=== PATIENT | male | born 1965 | race American Indian/Alaskan Native ===

== ENCOUNTER 2016-12-13 12:36 | Emergency (ER) | payer OTHER ==
[2016-12-13] MEDS ORDERED: CATAPRES PO ONE ×2 (14:10→19:20)
--- NOTE | 2016-12-13 14:15 | Emergency Department Report ---
Chief Complaint: Extremity Injury, Lower Stated Complaint: INGROWN TOE NAIL Time Seen by Provider: 12/13/16 14:04 - HPI History of Present Illness: 51-year-old male presents today with a ingrown toenail of his right third toe x1 month. Patient states that he has been to 3 different hospitals for same symptoms. Rates his pain as 10 out of 10. Patient has history of high blood pressure and states he took his lisinopril 20 mg this morning. Denies chest pain, shortness of breath, abdominal pain. - ROS Review of Systems: Per HPI - Exam Vital Signs: Vital Signs 12/13/16 13:01 Temperature 98.4 F Pulse Rate 64 Respiratory 18 Rate Blood Pressure 162/121 O2 Sat by Pulse 98 Oximetry Physical Exam: General: 51-year-old male in mild to moderate distress. Well-developed, well- nourished. CV: Regular rate and rhythm. Right third toe: Ulcer-like lesion noted at the tip of the third toe. Positive for tenderness to palpation. Peripheral pulses intact. MSE screening note: Focused history and physical exam performed. Due to findings the following was ordered: ED Disposition for MSE Condition: Stable
--- NOTE | 2016-12-13 15:04 | XRay Report ---
Right third toe 3 views: History: Third toe ulcer. Findings: No bony or articular abnormality. No periosteal reaction or lytic lesion. Impression: No definite acute findings.
[2016-12-13 15:48] LABS: Basophils % (Auto) 0.2 % (0.0-1.8); Eosinophils % (Auto) 3.5 % (0.0-4.3); Hematocrit 51.2 % (35.5-45.6); Hemoglobin 17.1 gm/dl (11.8-15.2); Mean Corpuscular HGB Conc 33 % (32-34); Mean Corpuscular Hemoglobin 31 pg (28-32); Mean Corpuscular Volume 94 fl (84-94); Platelet Count 855 K/mm3 (140-440); Red Blood Count 5.47 M/mm3 (3.65-5.03); Red Cell Distribution Width 16.1 % (13.2-15.2); White Blood Count 9.2 K/mm3 (4.5-11.0)
[2016-12-13 16:44] LABS: BUN/Creatinine Ratio 14.16; Blood Urea Nitrogen 17 mg/dL (9-20); Calcium 9.4 mg/dL (8.4-10.2); Carbon Dioxide 27 mmol/L (22-30); Chloride 99.9 mmol/L (98-107); Glucose 76 mg/dL (75-100); Sodium 140 mmol/L (137-145)
[2016-12-13 16:50] LABS: Anion Gap 17 mmol/L
[2016-12-13] MEDS ORDERED: CATAPRES ONE (19:19)
[2016-12-14 03:06] VITALS: BP 192/117
[2016-12-14] MEDS ORDERED: APRESOLINE IM ONE (03:07)
--- NOTE | 2016-12-14 03:14 | Emergency Department Report ---
HPI - General Chief Complaint: Extremity Injury, Lower Time Seen by Provider: 12/13/16 14:04 - HPI HPI: This is a 51-year-old Afro-[place] male who presents to the emergency department with the complaint of right middle toe pain and infection that he believes stemmed from a ingrown toenail. Patient says that this is the third hospital and emergency department that he has visited for this problem. He has been on pain medication and antibiotics in the past. They also told him to use Neosporin, soak it in Epsom salt. 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 He says that he has been doing what the other physicians told him and the symptoms do not appear to improve and sometimes seems worse. He denies any fever, nausea, vomiting. He is able to ambulate without difficulty. Patient also presents with uncontrolled blood pressure. He has a history of hypertension and is on lisinopril 20 mg daily. However the patient says that he used to be on 40 mg per day and says that he cut the dosage down on his own. He does not have a primary care doctor. He is a tobacco smoker but denies any illicit drug use. He does admit to multiple cups of caffeinated coffee per day. He denies any chest pain, headache, vision change or any neurological deficits. ED Past Medical Hx - Past Medical History Hx Hypertension: Yes Hx of Cancer: Yes (kidney) - Surgical History Additional Surgical History: L kidney removed - Social History Smoking Status: Current Every Day Smoker Substance Use Type: Alcohol - Medications Home Medications: Home Medications Medication Instructions Recorded Confirmed Last Taken Type Lisinopril [Zestril] 20 mg PO QDAY 07/17/14 07/17/14 07/17/14 08:00 History HYDROcodone/APAP 5-325 [[place] 1 each PO Q6HR PRN #12 tablet 12/14/16 Unknown Rx 5/325] Sulfamethoxazole/Trimethoprim 1 each PO BID #14 tablet 12/14/16 Unknown Rx [Bactrim DS TAB] ED Review of Systems ROS: Stated complaint: INGROWN TOE NAIL Other details as noted in HPI Comment: All other systems reviewed and negative Constitutional: denies: chills, fever Eyes: denies: eye pain, eye discharge, vision change ENT: denies: ear pain, throat pain Respiratory: denies: cough, shortness of breath, wheezing Cardiovascular: denies: chest pain, palpitations Gastrointestinal: denies: abdominal pain, nausea, diarrhea Genitourinary: denies: urgency, dysuria Musculoskeletal: arthralgia (right middle toe) Skin: other (skin ulceration, infection). denies: pruritus Neurological: denies: headache, weakness, paresthesias Physical Exam - Physical Exam Vital Signs: Vital Signs 12/13/16 12/13/16 12/13/16 13:01 19:25 22:03 Temperature 98.4 F Pulse Rate 64 84 89 Respiratory 18 16 Rate Blood Pressure 162/121 176/124 Blood Pressure 166/89 [Left] O2 Sat by Pulse 98 95 Oximetry 12/13/16 12/14/16 23:15 03:05 Temperature 98.5 F Pulse Rate 74 68 Respiratory 20 20 Rate Blood Pressure 141/97 Blood Pressure 192/117 [Left] O2 Sat by Pulse 96 97 Oximetry Physical Exam: GENERAL: The patient is well-developed well-nourished. HEENT: Normocephalic. Atraumatic. Extraocular motions are intact. Patient has moist mucous membranes. NECK: Supple. Trachea is midline. CHEST/LUNGS: Clear to auscultation. There is no respiratory distress noted. HEART/CARDIOVASCULAR: Regular. There is no tachycardia. There is no gallop rub or murmur. ABDOMEN: Abdomen is soft, nontender. Patient has normal bowel sounds. There is no abdominal distention. SKIN: Patient has some onychomycosis of the toenails. There is some ulceration to the right middle toe to the medial portion as well as to the inferior tip. It appears as if the skin is macerated and sloughing as if it has been consistently wet. No current bleeding or purulent drainage. NEURO: The patient is awake, alert, and oriented. The patient is cooperative. The patient has no focal neurologic deficits. The patient has normal speech. MUSCULOSKELETAL: Mild tenderness to palpation to the right middle toe with patient has some ulceration and onychomycosis. There is no limitation range of motion. There is no evidence of acute injury. Cap refill less than 2 seconds. Dorsalis pedis pulses +2 over 4 bilaterally. ED Course Vital Signs 12/13/16 12/13/16 12/13/16 13:01 19:25 22:03 Temperature 98.4 F Pulse Rate 64 84 89 Respiratory 18 16 Rate Blood Pressure 162/121 176/124 Blood Pressure 166/89 [Left] O2 Sat by Pulse 98 95 Oximetry 12/13/16 12/14/16 23:15 03:05 Temperature 98.5 F Pulse Rate 74 68 Respiratory 20 20 Rate Blood Pressure 141/97 Blood Pressure 192/117 [Left] O2 Sat by Pulse 96 97 Oximetry ED Medical Decision Making - Lab Data Result diagrams: 12/13/16 15:20 12/13/16 15:20 - Radiology Data Radiology results: image reviewed interpreted by me: X-ray of the affected right middle toe does not show any signs of osteomyelitis , fracture, dislocation or any acute process. - Medical Decision Making This is a 51-year-old male presents to the emergency department with a possible right middle toe infections been going on for weeks. Looking at the toe it appears macerated and sloughing. He does not appear to currently be due to any type of ingrown toenail but may have started out that way. Based on the patient 's information about what he has been doing for treatment and the appearance, it seems as if the patient has been using Neosporin and soaking it to the point where the skin has become macerated and then due to friction it is causing these ulcerations. Patient's labs have been unremarkable including no signs of leukocytosis. Despite his high blood pressure, he does not have any renal insufficiency. An x-ray was done of the toe that does not show any signs of fracture, dislocation or signs of osteomyelitis. The patient made a change on his own from lisinopril 40 mg to 20 mg and it does not appear to be controlling his blood pressure. On top of that he drinks multiple caffeinated coffees and is a tobacco smoker. We discussed dietary and lifestyle changes including tobacco cessation to help his blood pressure. It is recommended that he goes back to the normal dose of 40 mg. And most importantly the patient will need a primary care physician. The tobacco cessation will also help with the wound healing. Otherwise we discussed cleaning the area with soap and water but then making sure that it is dry. He will avoid using any Neosporin or soaking it so that the skin can dry out and start to regrow. He also will be given a referral for a local wound care clinic and podiatry. Also information was given to his as well. Patient was given a dose of Catapres much earlier in the evening and he had some good improvement of his hypertension. He came back to a elevated level and required a dose of hydralazine. It is now again come down to a much more reasonable level and the patient appears safe for discharge home. He will make these changes, follow up with the physicians and will return to the ER with any worsening symptoms or any acute distress. - Differential Diagnosis ingrown toenail, osteomyelitis, ulcer, cellulitis, hypertensive urgency Critical Care Time: No Critical care attestation.: If time is entered above; I have spent that time in minutes in the direct care of this critically ill patient, excluding procedure time. ED Disposition Clinical Impression: Hypertension Qualifiers: Hypertension type: essential hypertension Qualified Code(s): I10 - Essential ( primary) hypertension Toe ulcer Qualifiers: Laterality: right Non-pressure ulcer stage: limited to breakdown of skin Qualified Code(s): L97.511 - Non-pressure chronic ulcer of other part of right foot limited to breakdown of skin Disposition: DISCHARGED TO HOME OR SELFCARE Is pt being admited?: No Condition: Stable Instructions: Hypertension (ED), Acute Wound Care (ED), Chronic Wound Care (ED) , Diabetic Foot Ulcers (ED) Additional Instructions: I given you information about wound care and foot ulcers. Despite the fact that one of the information packet says it is regarding diabetic foot ulcers, he do not have diabetes. Have given you referrals for primary care clinics, a wound care clinic, and a fashion buyer. Follow-up with one or all of these physicians. You should clean the infected toe with soap and water but then it should remain dry. Do not use any Neosporin or creams and do not soak it for a long period of time. If you sweat, the sock should be changed in the foot cleaned. When you're at home the area can be left to air dry. Take the antibiotics as prescribed. Return to the emergency department with any worsening of your symptoms or any acute distress. Try and quit smoking. Try to stay away from foods that are high in salt and caffeinated products to assist with her blood pressure. Keep a blood pressure log. If necessary, go back to your original dose of lisinopril 40 mg per day. Prescriptions: Sulfamethoxazole/Trimethoprim [Bactrim DS TAB] 1 each PO BID #14 tablet HYDROcodone/APAP 5-325 [[place] 5/325] 1 each PO Q6HR PRN #12 tablet PRN Reason: Pain Referrals: PRIMARY CAREMD [Primary Care Provider] - 3-5 Days [facility] [Outside] - 3-5 Days [facility] [Outside] - 3-5 Days [facility] [Outside] - 3-5 Days RONALD CAST MD [Staff Physician] - 3-5 Days Time of Disposition: 03:40
== END 2016-12-14 03:40 | disposition home or self-care (01) ==
LOC: ED 12:36
DX: I10 Essential (primary) hypertension (principal); L97.511 Non-pressure chronic ulcer of other part of right foot limited to breakdown of skin; F17.200 Nicotine dependence, unspecified, uncomplicated; Z85.528 Personal history of other malignant neoplasm of kidney
CPT/HCPCS: 36415; 73660; 80048; 85025; 96372; 99283; J0360

== ENCOUNTER 2017-10-10 09:25 | Outpatient (CLI) | payer OTHER ==
--- NOTE | 2017-10-10 10:49 | XRay Report ---
Right knee 2 views. Findings: There is mild narrowing of the joint space medially. Bony mineralization is normal. Minimal chondrocalcinosis is seen in the posterior joint space on the lateral view. No additional soft tissue findings are seen. Impression: Mild osteoarthritis.
--- NOTE | 2017-10-10 13:25 | XRay Report ---
XRAY LUMBAR SPINE THREE VIEWS: 10/10/17 09:25:00 CLINICAL: Decreased lumbar range of motion. FINDINGS: Normal vertebral body height, alignment and disk spaces. Superior endplate sclerosis of L4 and large L3-4 anterior and lateral osteophytes. The pedicles are intact. Facet joint sclerosis from L2-3 through L5-S1. No fracture. Aortic calcifications and left para spinal upper lumbar and lower thoracic surgical clips. IMPRESSION: Multilevel facet joint arthropathy and L3-4 degenerative disc disease.
== END 2017-10-10 09:26 | disposition home or self-care (01) ==
LOC: XRAY 09:25
PROVIDERS: ATTEND Internal Medicine
DX: M51.36 Other intervertebral disc degeneration, lumbar region (principal); M17.11 Unilateral primary osteoarthritis, right knee; M11.261 Other chondrocalcinosis, right knee; I70.0 Atherosclerosis of aorta
CPT/HCPCS: 72100

== ENCOUNTER 2019-03-05 17:28 | Inpatient (IN) | payer OTHER ==
--- NOTE | 2019-03-05 17:35 | Emergency Department Report ---
ED Neuro Deficit HPI - General Chief Complaint: Neuro Symptoms/Deficit Stated Complaint: CVA Time Seen by Provider: 03/05/19 17:33 Source: patient Mode of arrival: Stretcher Limitations: No Limitations - History of Present Illness Initial Comments: Patient is 53 years old male with history of hypertension, COPD nontraumatic several hemorrhoids in November 2018 with cerebral edema. Patient was just released from rehabilitation. Patient brought to the emergency room as a code stroke. EMS stated that patient's symptoms started 1 hour prior to coming to the ER approximately 4:30 PM with a right facial droop right upper and lower extremity weakness. Patient is unable to give more history at this time -: hour(s) (1 hour ago) Location: speech, right face, right arm Presenting Symptoms: Present: Weak/Paralyzed One Side, Facial Droop/Numbness, Unable to Speak Clearly History of same: Yes Place: home - Related Data Home Medications: Home Medications Medication Instructions Recorded Confirmed Last Taken Lisinopril [Zestril] 20 mg PO QDAY 07/17/14 07/17/14 07/17/14 08:00 Metoprolol Tartrate 50 mg PO BID 03/05/19 03/05/19 Unknown QUEtiapine 50 mg PO DAILY 03/05/19 03/05/19 Unknown traZODone 50 mg PO PRN 03/05/19 03/05/19 Unknown Previous Rx's Medication Instructions Recorded Last Taken Type HYDROcodone/APAP 5-325 [[place] 1 each PO Q6HR PRN #12 tablet 12/14/16 Unknown Rx 5/325] Sulfamethoxazole/Trimethoprim 1 each PO BID #14 tablet 12/14/16 Unknown Rx [Bactrim DS TAB] Allergies/Adverse Reactions: Allergies Allergy/AdvReac Type Severity Reaction Status Date / Time No Known Allergies Allergy Unverified 07/17/14 19:25 ED Review of Systems ROS: Stated complaint: CVA Other details as noted in HPI Comment: All other systems reviewed and negative Constitutional: denies: chills, fever Respiratory: denies: cough, orthopnea, shortness of breath Gastrointestinal: denies: abdominal pain, nausea Neurological: weakness, numbness. denies: headache, paresthesias, confusion, abnormal gait ED Past Medical Hx - Past Medical History Hx Hypertension: Yes - Surgical History Additional Surgical History: L kidney removed - Social History Smoking Status: Current Every Day Smoker Substance Use Type: Alcohol - Medications Home Medications: Home Medications Medication Instructions Recorded Confirmed Last Taken Type Lisinopril [Zestril] 20 mg PO QDAY 07/17/14 07/17/14 07/17/14 08:00 History HYDROcodone/APAP 5-325 [[place] 1 each PO Q6HR PRN #12 tablet 12/14/16 Unknown Rx 5/325] Sulfamethoxazole/Trimethoprim 1 each PO BID #14 tablet 12/14/16 Unknown Rx [Bactrim DS TAB] Metoprolol Tartrate 50 mg PO BID 03/05/19 03/05/19 Unknown History QUEtiapine 50 mg PO DAILY 03/05/19 03/05/19 Unknown History traZODone 50 mg PO PRN 03/05/19 03/05/19 Unknown History ED Neuro Physical Exam - General Limitations: No Limitations General appearance: alert, in no apparent distress Suspected Stroke: Yes - Head Head exam: Present: atraumatic, normocephalic, normal inspection - Eye Eye exam: Present: normal appearance, PERRL Pupils: Present: normal accommodation - ENT ENT exam: Present: normal exam, normal orophraynx, mucous membranes moist - Neck Neck exam: Present: normal inspection, full ROM. Absent: tenderness, meningismus, lymphadenopathy, thyromegaly - Respiratory Respiratory exam: Present: normal lung sounds bilaterally. Absent: respiratory distress, wheezes, rales, rhonchi, chest wall tenderness, accessory muscle use, decreased breath sounds, prolonged expiratory - Cardiovascular Cardiovascular Exam: Present: regular rate, normal rhythm, normal heart sounds - GI/Abdominal GI/Abdominal exam: Present: soft, normal bowel sounds. Absent: distended, tenderness, guarding, rebound, rigid - Extremities Exam Extremities exam: Present: normal inspection, full ROM, normal capillary refill. Absent: tenderness, pedal edema, joint swelling - Back Exam Back exam: Present: normal inspection, full ROM. Absent: tenderness, CVA tenderness (R), CVA tenderness (L), muscle spasm, paraspinal tenderness, vertebral tenderness - Neurological Exam Neurological exam: Present: alert - NIHSS Assessment Interval: Baseline 1a. Level of Consciousness: alert/keenly responsive 1b. LOC Questions: answers both correctly 1c. LOC Commands: performs tasks correctly 2. Best Gaze: normal 3. Visual: no visual loss 4. Facial Palsy: unilateral complete paralysis 5b. Motor Arm Right: drift 5a. Motor Arm Left: no drift 6a. Motor Leg Left: drift 6b. Motor Leg Right: no drift 7. Limb Ataxia: absent 8. Sensory: normal 9. Best Language: mild/moderate aphasia 10. Dysarthria: mild/moderate dysarthria 11. Extinction/Inattention: no abnormality Total Score: 7 Stroke Severity: Moderate Stroke - Psychiatric Psychiatric exam: Present: normal mood - Skin Skin exam: Present: warm, intact, normal color ED Course Vital Signs 03/05/19 03/05/19 03/05/19 20:06 22:10 22:11 Pulse Rate 63 77 66 Respiratory 15 13 17 Rate Blood Pressure 123/69 142/71 129/70 [Right] O2 Sat by Pulse 97 98 96 Oximetry - Reevaluation(s) Reevaluation #1: 03/05/19 19:15 Patient's family arrived to the ER. Patient family stated that this patient symptoms looked the same since he came from rehabilitation one week ago. Family stated that the home health nurse is unfamiliar with the patient. Patient has been seen by Dr. Dena Burleson from telemetry neurology via video conference, she stated that patient is not a candidate for TPA. She stated that patient does not need a CTA neck or brain but an MRI to make sure that there is no new stroke. 03/05/19 21:29 - Lab Data Result diagrams: 03/05/19 17:46 03/05/19 17:46 Lab Results 03/05/19 03/05/19 03/05/19 Range/Units 17:46 17:46 17:46 WBC 8.6 (4.5-11.0) K/mm3 RBC 4.00 (3.65-5.03) M/mm3 Hgb 13.1 (11.8-15.2) gm/dl Hct 36.7 (35.5-45.6) % MCV 92 (84-94) fl MCH 33 H (28-32) pg MCHC 36 H (32-34) % RDW 18.3 H (13.2-15.2) % Plt Count 652 H (140-440) K/mm3 Lymph % (Auto) 24.4 (13.4-35.0) % Lipscomb % (Auto) 12.0 H (0.0-7.3) % Eos % (Auto) 6.6 H (0.0-4.3) % Baso % (Auto) 1.0 (0.0-1.8) % Lymph # 2.1 (1.2-5.4) K/mm3 Lipscomb # 1.0 H (0.0-0.8) K/mm3 Eos # 0.6 H (0.0-0.4) K/mm3 Baso # 0.1 (0.0-0.1) K/mm3 Seg Neutrophils % 56.0 (40.0-70.0) % Seg Neutrophils # 4.8 (1.8-7.7) K/mm3 PT 14.9 (12.2-14.9) Sec. INR 1.10 (0.87-1.13) APTT 31.4 (24.2-36.6) Sec. Thrombin Time 15.2 (15.1-19.6) Sec. Sodium 140 (137-145) mmol/L Potassium 4.6 (3.6-5.0) mmol/L Chloride 99.9 (98-107) mmol/L Carbon Dioxide 29 (22-30) mmol/L Anion Gap 16 mmol/L BUN 18 (9-20) mg/dL Creatinine 1.0 (0.8-1.5) mg/dL Estimated GFR > 60 ml/min BUN/Creatinine Ratio 18 % Glucose 107 H (75-100) mg/dL POC Glucose (70-105) Calcium 9.4 (8.4-10.2) mg/dL Total Creatine Kinase 211 H (55-170) units/L CK-MB (CK-2) 1.0 (0.0-4.0) ng/mL CK-MB (CK-2) Rel Index 0.4 (0-4) Troponin T < 0.010 (0.00-0.029) ng/mL 03/05/19 Range/Units 17:54 WBC (4.5-11.0) K/mm3 RBC (3.65-5.03) M/mm3 Hgb (11.8-15.2) gm/dl Hct (35.5-45.6) % MCV (84-94) fl MCH (28-32) pg MCHC (32-34) % RDW (13.2-15.2) % Plt Count (140-440) K/mm3 Lymph % (Auto) (13.4-35.0) % Lipscomb % (Auto) (0.0-7.3) % Eos % (Auto) (0.0-4.3) % Baso % (Auto) (0.0-1.8) % Lymph # (1.2-5.4) K/mm3 Lipscomb # (0.0-0.8) K/mm3 Eos # (0.0-0.4) K/mm3 Baso # (0.0-0.1) K/mm3 Seg Neutrophils % (40.0-70.0) % Seg Neutrophils # (1.8-7.7) K/mm3 PT (12.2-14.9) Sec. INR (0.87-1.13) APTT (24.2-36.6) Sec. Thrombin Time (15.1-19.6) Sec. Sodium (137-145) mmol/L Potassium (3.6-5.0) mmol/L Chloride (98-107) mmol/L Carbon Dioxide (22-30) mmol/L Anion Gap mmol/L BUN (9-20) mg/dL Creatinine (0.8-1.5) mg/dL Estimated GFR ml/min BUN/Creatinine Ratio % Glucose (75-100) mg/dL POC Glucose 90 (70-105) Calcium (8.4-10.2) mg/dL Total Creatine Kinase (55-170) units/L CK-MB (CK-2) (0.0-4.0) ng/mL CK-MB (CK-2) Rel Index (0-4) Troponin T (0.00-0.029) ng/mL - EKG Data -: EKG Interpreted by Ms EKG shows normal: sinus rhythm Rate: normal Interpretation: no acute changes - Radiology Data Radiology results: report reviewed - Medical Decision Making Patient is 53 years old male with history of hypertension, COPD nontraumatic several hemorrhoids in November 2018 with cerebral edema. Patient was just released from rehabilitation. Patient brought to the emergency room as a code stroke. EMS stated that patient's symptoms started 1 hour prior to coming to the ER approximately 4:30 PM with a right facial droop right upper and lower extremity weakness. CT scan did not show any acute finding. Patient examined to telemetry and neurology by Dr. Dena Burleson. Dr. Burleson stated patient is not a TPA candidate and recommended patient to be admitted to the hospital for MRI of the brain. I discussed the patient is Dr. Morse, he agreed to admit the patient to medical service. Critical Care Time: Yes Critical care time in (mins) excluding proc time.: 30 Critical care attestation.: If time is entered above; I have spent that time in minutes in the direct care of this critically ill patient, excluding procedure time. ED Disposition Clinical Impression: Stroke Disposition: [id number] OP ADMIT IP TO THIS HOSP Is pt being admited?: Yes Condition: Stable Referrals: [facility] [Other] - 3-5 Days
--- NOTE | 2019-03-05 17:54 | Cat Scan Report ---
PROCEDURE: CT HEAD/BRAIN WO CON TECHNIQUE: Axial noncontrast CT images of the brain were performed Total exam DLP 920.48 mgy-centimeter HISTORY: Stroke symptoms COMPARISONS: None FINDINGS: Cortical atrophy. Ill-defined periventricular white matter hypodensity most compatible with small vessel ischemic disea se. Completed 6 mm right pontine lacunar infarct. Heterogeneous 4 mm central pontine low density lesion. Right caudate head completed lacunar infarct. Right thalamic subcentimeter punctate infarcts. Ill-defined left thalamus margins. No definite blood products. Ill-defined low-density in the centrum semiovale. No acute blood products. IMPRESSION: Multiple completed lacunar infarcts. The medial margin of the left thalamus is poorly delineated which may be due to old infarcts but supe rimposed acute infarct cannot be excluded. The lateral margin of the left thalamus shows poor crane-wh ite differentiation. No blood products. Recommend MRI brain with diffusion weighted imaging. Critical 1 report. Findings are being called as a stroke alert on 03/05/2019 at 1747 hours [place] sta ndard time and are personally relayed to Dr. Thompson. Per the referring physician, the patient had a stroke in November and just completed rehabilitation. P revious imaging and symptomatology are unknown. This document is electronically signed by Chandrika Concepcion MD., March 05 2019 05:52:24 PM ET
[2019-03-05 18:23] LABS: INR 1.1 (0.87-1.13)
[2019-03-05 18:24] LABS: Partial Thromboplastin Time 31.4 Sec. (24.2-36.6); Thrombin Time 15.2 Sec. (15.1-19.6)
[2019-03-05 18:25] LABS: BUN/Creatinine Ratio 18; Blood Urea Nitrogen 18 mg/dL (9-20); Calcium 9.4 mg/dL (8.4-10.2); Hemolysis Index 11
[2019-03-05 18:39] LABS: Basophils # (Auto) 0.1 K/mm3 (0.0-0.1); Eosinophils # (Auto) 0.6 K/mm3 (0.0-0.4); Eosinophils % (Auto) 6.6 % (0.0-4.3); Hematocrit 36.7 % (35.5-45.6); Hemoglobin 13.1 gm/dl (11.8-15.2); Lymphocytes # (Auto) 2.1 K/mm3 (1.2-5.4); Lymphocytes % (Auto) 24.4 % (13.4-35.0); Mean Corpuscular HGB Conc 36 % (32-34); Mean Corpuscular Volume 92 fl (84-94); Platelet Count 652 K/mm3 (140-440); Red Cell Distribution Width 18.3 % (13.2-15.2)
--- NOTE | 2019-03-05 20:07 | Consultation ---
History of Present Illness Consult date: 03/05/19 Reason for Consult: stroke alert Chief complaint: right facial droop History of present illness: 53 yo male with h/o hemorrhagic stroke November 2018 who just got out of rehab about a week to few days ago- in discussing with over phone, neighbor at bedside, and EMS- the home health nurse noted that she saw worsening of the right facial droop and called EMS for concern he was having a new stroke; family sent pics to since she was at work and she states that she saw no difference compared to his new normal; they state that he did have a large serving of [employer] chicken and he hadn't had that since being out of rehab; no seizure activity noted; no new meds. Medications and Allergies Allergies Allergy/AdvReac Type Severity Reaction Status Date / Time No Known Allergies Allergy Unverified 07/17/14 19:25 Home Medications Medication Instructions Recorded Confirmed Last Taken Type Lisinopril [Zestril] 20 mg PO QDAY 07/17/14 07/17/14 07/17/14 08:00 History HYDROcodone/APAP 5-325 [[place] 1 each PO Q6HR PRN #12 tablet 12/14/16 Unknown Rx 5/325] Sulfamethoxazole/Trimethoprim 1 each PO BID #14 tablet 12/14/16 Unknown Rx [Bactrim DS TAB] - Level of Consciousness 1a. Level of Consciousness: alert/keenly responsive - LOC Questions 1b. LOC Questions: answers 1 question correctly - LOC Command 1c. LOC Commands: performs tasks correctly - Best Gaze 2. Best Gaze: normal - Visual 3. Visual: no visual loss - Facial Palsy 4. Facial Palsy: partial paralysis - Motor Arm 5a. Motor Arm Left: no drift 5b. Motor Arm Right: drift - Motor Leg 6a. Motor Leg Left: no drift 6b. Motor Leg Right: no drift - Limb Ataxia 7. Limb Ataxia: absent - Sensory 8. Sensory: normal - Best Language 9. Best Language: mild/moderate aphasia - Dysarthria 10. Dysarthria: mild/moderate dysarthria - Extinction and Inattention 11. Extinction/Inattention: no abnormality - Scoring Total Score: 6 Stroke Severity: Moderate Stroke Results - Laboratory Findings CBC and BMP: 03/05/19 17:46 03/05/19 17:46 Abnormal Lab Findings: Abnormal Labs 03/05/19 03/05/19 17:46 17:46 MCH 33 H MCHC 36 H RDW 18.3 H Plt Count 652 H [place] % (Auto) 12.0 H Eos % (Auto) 6.6 H [place] # 1.0 H Eos # 0.6 H Glucose 107 H Total Creatine Kinase 211 H - Diagnostic Findings Additional findings: CT head negative for bleed, noted right frontal hypodensity Assessment and Plan [facility] Consult Services date of service: 03/05/19 metrics: LKN 1600 door: 1730 TS called 1734 TS connected 1738 NIH 1740 Impression: 1. r/o extension of old stroke vs recrudescence of stroke sx related to fatigue, heavy meal, etc 2. November 2018 right frontal hemorrhagic stroke Recommendations: - no tPA given h/o ICH - not an LVO - consider MRI brain to r/o new stroke - consider r/o infection - d/w ED doc in detail Dena Burleson MD Medical Decision Making: - Extensive number of diagnosis or management options are considered above. - Extensive amount of complex data reviewed. - High risk of complication and/or morbidity or mortality are associated with differential diagnostic considerations above. - There may be uncertain outcome and increased probability of prolonged functional impairment or high probability of severe prolonged functional impairment associated with some of these differential diagnosis. Medical Data Reviewed: 1.Data reviewed include clinical labs, radiology, Medical Tests; 2.Tests results discussed w/performing or interpreting physician; 3.Obtaining/reviewing old medical records; 4.Obtaining case history from another source; 5.Independent review of image, tracing or specimen. Patient was informed the Neurology Consult would happen via telehealth (remote video) and consented to receiving care in this manner.
[2019-03-05] MEDS ORDERED: TYLENOL PO PRN (22:20)
[2019-03-05] MEDS ORDERED: ZOFRAN IV PRN (22:20)
[2019-03-05] MEDS: NACL 0.9% 1000 ML 1,000 ML IV SCH (23:54)
--- NOTE | 2019-03-06 08:45 | History and Physical Report ---
CHIEF COMPLAINT: Weakness on the right side of the body and drooling of the mouth on the right side of the mouth. HISTORY OF PRESENT ILLNESS: The patient is a 53-year-old male who was recently discharged from rehab and was brought in as a code stroke to the Emergency Room. The patient was noted to have developed drooling on the right of the face and then also has weakness of the right upper and right lower limb and also have speech impairment and was brought for evaluation. In the Emergency Room, the patient was evaluated, but was not given any TPA because of the contraindications. PAST MEDICAL HISTORY: Pertinent for hypertension. PAST SURGICAL HISTORY: Pertinent for left kidney excision. FAMILY HISTORY: Noncontributory. SOCIAL HISTORY: The patient smokes cigarettes, drinks alcohol, and does not use illicit drug. MEDICATIONS: The patient is on lisinopril 20 mg by mouth daily, [place] 5/325 mg 1 by mouth every 6 hours as needed for pain, and Bactrim double strength 1 by mouth twice daily. The patient is also on metoprolol tartrate 50 mg by mouth twice daily, and quetiapine 50 mg by mouth daily as well as ____ 50 mg by mouth at bedtime as needed for insomnia. ALLERGIES: There are no known drug allergies. REVIEW OF SYSTEMS: CONSTITUTIONAL: There is no fever, no chills, no diaphoresis. HEENT: There is no headache or sore throat. CARDIOVASCULAR SYSTEM: There is no chest pain or orthopnea. RESPIRATORY SYSTEM: There is no shortness of breath or cough. GASTROINTESTINAL SYSTEM: There is no nausea, no vomiting, no abdominal pain, diarrhea or constipation. NEUROLOGICAL SYSTEM: Drooling on the right side of the face noted. Weakness of the right side of the body noted and speech impairment noted. MUSCULOSKELETAL SYSTEM: There is no joint pain or swelling. DERMATOLOGICAL SYSTEM: There is no skin rash or itching. GENITOURINARY SYSTEM: There is no dysuria, hematuria, or flank pain. Rest of system review is normal. PHYSICAL EXAMINATION: GENERAL: At the time of exam, the patient was found to be alert, oriented, to person and in [id number] distress due to weakness of the right side of the body. VITAL SIGNS: At the initial time of presentation showed temperature to be normal, pulse of 63, respirations 16, blood pressure 123/69, O2 sat of 97% on room air. HEENT: Showed pupils to be equal, round, reactive to light and accommodating. Extraocular muscles are intact. NECK: Neck is supple with no JVD or carotid bruit. CARDIOVASCULAR SYSTEM: Showed normal first and second heart sounds with no gallops or murmurs. RESPIRATORY SYSTEM: Show good air entry on both sides of the lungs with no abnormal breath sounds. GASTROINTESTINAL: Show abdomen to be full, soft, nontender with no organomegaly or rigidity. NEUROLOGIC: Shows patient to have weakness on the right side of the body and also weakness involving both lower extremities with no loss of sensory function. There is drooling of the mouth on the face on the right side with also speech impairment. MUSCULOSKELETAL SYSTEM: Show no joint swelling or tenderness. DERMATOLOGICAL SYSTEM: Show no skin rash. GENITOURINARY SYSTEM: Showing no costovertebral angle tenderness. PERTINENT LABORATORY DATA AND IMAGING STUDIES: The patient has CT of the head without contrast done that shows multiple complete lacunar infarcts. The media imaging according to the radiologist showed ____ which may be due to old infarct but superimposed acute infarct cannot be excluded, and according to the radiologist, the lateral margin of the left thalamus showed poor galdamez white differentiation. MRI is recommended for better evaluation of the presentation. LAB RESULTS: The patient has CBC done with normal white count, normal hemoglobin and normal hematocrit with CBC differential showing elevated monocyte count of 12% and elevated eosinophil count of 6.6%. Coagulation studies were unremarkable. The patient's chemistry showed slightly elevated total CPK of 211, otherwise rest of chemistry was unremarkable. DIAGNOSIS: Cerebrovascular accident with right sided weakness. PLAN: 1. The patient will be admitted to telemetry. 2. The patient will have MRI of the brain without contrast done this morning and will have bilateral carotid Doppler also done. 3. The patient will have a 2D echo done this morning. 4. The patient will have Neurology consult with Dr. Fiona Anders and will have speech therapy consult as well as physical therapy consult this morning. 5. The patient will remain n.p.o. until swallow test is passed. 6. The patient will be on Tylenol 650 mg by mouth every 4 hours when he starts taking medications orally and will be on aspirin 325 mg by mouth daily. 7. The patient will be on Lipitor 80 mg by mouth daily and will be on his home medication as shown in the medication reconciliation section. 8. The patient will be on IV Zofran 4 mg every 8 hours for nausea and vomiting and will be on normal saline at 75 mL an hour. 9. The patient will be on oxygen by nasal cannula 2 liters per minute. JOB# [id number] OCN/NTS
[2019-03-06] MEDS: ZESTRIL PO SCH (09:19)
[2019-03-06] MEDS: ASPIRIN PO SCH (09:20)
[2019-03-06] MEDS: LOPRESSOR PO SCH ×2 (09:20→22:26)
[2019-03-06] MEDS ORDERED: DESYREL PO PRN (10:00)
--- NOTE | 2019-03-06 11:22 | Magnetic Resonance Report ---
MRI OF THE BRAIN WITHOUT CONTRAST: HISTORY: CVA PROCEDURE: Multiplanar, multisequence MR imaging of the brain without IV contrast was performed. FINDINGS: Compared to the CT head dated 03/05/19. MRI demonstrates a 5 mm focus of diffusion restriction in the posterior left frontal white matter on diffusion image 24. This consistent with a small subacute ischemic infarct. No other areas of diffusion restriction are identified. 1.9 cm chronic infarct in the medial left thalamus is identified. There are 2 chronic lacunar infarcts in both sides of the zeynep measuring up to 7 mm. Mild cortical volume loss and moderate nonspecific chronic white matter changes are noted. No evidence for hemorrhage, mass or extra-axial fluid collection. The midline structures are central. The basal cisterns are patent. Normal ventricular size. The orbital cavities and sella turcica demonstrate no abnormality. The visualized paranasal sinuses and mastoid air cells are well aerated. IMPRESSION: 5 mm focal infarct in the posterior left frontal white matter. Chronic focal infarcts in the left thalamus and bilateral zeynep. Chronic white matter changes and volume loss.
--- NOTE | 2019-03-06 12:04 | Event Note ---
Date: 03/06/19 Patient with recent stroke, has acute ischemic stroke. I have seen and examined him. Discussed with sister at bedside, on phone.
[2019-03-06 14:29] LABS: Chol/HDL Ratio 3.51 %
--- NOTE | 2019-03-06 15:31 | Vascular Lab Report ---
PROCEDURE: VL CAROTID DUPLEX BILAT TECHNIQUE: Duplex Doppler ultrasound examination of the cervical arteries bilaterally. Note: Measurement of carotid stenosis is based on flow velocity values that correlate with the [place] Symptomatic Carotid Endarterectomy Trial (NASCET) based stenosis criteria using the internal carotid artery diameter as the denominator for stenosis calculation. HISTORY: CVA COMPARISONS: None FINDINGS: Intimal thickening is noted bilaterally throughout the carotid artery system but no significant plaqu e or calcification is demonstrated. Peak systolic CCA and ICA velocities are within normal limits bilaterally corresponding to estimated diameter stenosis of 0 to 49 %. Flow is antegrade in both vertebral arteries. No evidence of aneurysm or occlusion. IMPRESSION: Bilateral carotid artery minimal atherosclerotic change. No hemodynamically significant stenosis (<50% diameter) based on ratios, velocities, and color Dopple r images. This document is electronically signed by Butch Brown MD., March 06 2019 03:29:19 PM ET
--- NOTE | 2019-03-06 17:41 | Event Note ---
Date: 03/06/19 d/w family JAK2+ saw dr salgado was at [facility] was on hydrea same trial [id number]
--- NOTE | 2019-03-07 00:24 | Consultation ---
REFERRED BY: Pastor Ga MD REASON FOR CONSULTATION: JAK2 positive ET, chronic myeloproliferative disorder. HISTORY OF PRESENT ILLNESS: I saw the patient a 53-year-old male in the medical floor. The patient has history of hypertension, COPD. He had a CVA in 11/2018. He was at [facility] where he was seen by Dr. Frankel, ladle repairer. He was started on hydroxyurea and was told JAK2 is positive. He was discharged to rehab and then from rehab, came to home. He came to the hospital because of increased right-sided droop and right arm and leg weakness. The patient follows commands, but does not answer questions. Family members were present. I spoke to the patient's over the telephone. The patient has appointment to see Dr. Frankel tomorrow and they were Hydrea before, but not in the recent past. I have been asked to evaluate the patient for this. At this time, no headache, no visual disturbances. No ear discharge. Right-sided facial and arm weakness even right leg weakness. No chest pain, no shortness of breath, no abdominal pain, no vomiting, no diarrhea, no dysuria. PAST MEDICAL HISTORY: As above, hypertension, COPD, CVA. HOME MEDICATIONS: Lisinopril, metoprolol, trazodone, Bactrim. ALLERGIES: None. PAST SURGICAL HISTORY: Left kidney surgery, details not clear. SOCIAL HISTORY: History of smoking present. History of alcohol present. PHYSICAL EXAMINATION: VITAL SIGNS: Temperature 98, pulse 60, respirations 18, BP 121/62. HEENT: No pallor, no icterus. NECK: No neck lymph nodes. HEART: S1, S2. LUNGS: Clear to auscultation anteriorly. ABDOMEN: Soft. EXTREMITIES: No calf swelling. Right facial and right upper extremity weak, able to move lower extremity, right side weaker. LABORATORY DATA: White cell 8, hemoglobin 13, MCV 92, platelets 652, creatinine 1, calcium 9.4. Brain MRI was done, head CT was done, 5 mm focal infarct in the posterior left frontal white matter. ASSESSMENT AND PLAN: 1. Based on the information, JAK2 positive, chronic myeloproliferative disorders, ET and based on the lab in the past, the patient's platelet count in 2017 was 855, may be secondary to the chronic myeloproliferative disorders. 2. The patient was on Hydrea. We will reinitiate the same. 3. the patient's family will get more information. 4. History of cerebrovascular accident. 5. History of chronic obstructive pulmonary disease, history of hypertension, history of smoking. I will follow the patient during inpatient stay. We will look into hydroxyurea. The patient will be seen in the hospital and then he will follow up with Dr. Franekl in the clinic setting. JOB# [id number] NM/NTS
[2019-03-07 05:52] LABS: Hematocrit 34.4 % (35.5-45.6); Hemoglobin 11.6 gm/dl (11.8-15.2); Mean Corpuscular HGB Conc 34 % (32-34); Mean Corpuscular Volume 92 fl (84-94); Platelet Count 633 K/mm3 (140-440); Red Blood Count 3.75 M/mm3 (3.65-5.03); Red Cell Distribution Width 18.3 % (13.2-15.2)
[2019-03-07 06:17] LABS: BUN/Creatinine Ratio 16; Blood Urea Nitrogen 13 mg/dL (9-20); Calcium 9.1 mg/dL (8.4-10.2); Hemolysis Index 11
--- NOTE | 2019-03-07 08:07 | Hem/Onc Progress Note ---
Assessment and Plan 1. Based on the information, JAK2 positive, chronic myeloproliferative disorders, ET and based on the lab in the past, the patient's platelet count in 2017 was 855, may be secondary to the chronic myeloproliferative disorders. 2. The patient was on Hydrea. reinitiate the same. 3. the patient's family will get more information. 4. History of cerebrovascular accident. 5. History of chronic obstructive pulmonary disease, history of hypertension, history of smoking. I will follow the patient during inpatient stay. The patient will be seen in the hospital and then he will follow up with Dr. Frankel in the clinic setting. 03/07 able to move rt side - still rt is weaker than left. - Patient Problems (1) Myeloproliferative disease Current Visit: Yes Status: Acute Subjective Date of service: 03/07/19 Objective - Constitutional Vitals: Last Vital Signs Temp 98.0 F 03/07/19 04:45 Pulse 57 L 03/06/19 23:42 Resp 18 03/07/19 04:45 BP 133/66 03/07/19 04:45 Pulse Ox 94 03/06/19 23:42 Pain Intensity (0-10): denies any pain General appearance: no acute distress Performance status: 3-limited selfcare - EENT ENT: hearing intact Lymph node exam: negative cervical - Respiratory Respiratory effort: Positive: normal Respiratory: bilateral: CTA - Cardiovascular Heart Sounds: Present: S1 & S2 Extremities: No edema - Gastrointestinal General gastrointestinal: Present: soft, non-tender Rectal Exam: deferred - Genitourinary Male genitourinary: Present: deferred - Integumentary Integumentary: warm - Musculoskeletal Musculoskeletal: right sided weakness - Labs Lab Results: Laboratory Results - last 24 hr 03/06/19 03/07/19 03/07/19 13:16 05:28 05:28 WBC 7.4 RBC 3.75 Hgb 11.6 L Hct 34.4 L MCV 92 MCH 31 MCHC 34 RDW 18.3 H Plt Count 633 H Sodium 137 Potassium 4.0 Chloride 99.9 Carbon Dioxide 24 Anion Gap 17 BUN 13 Creatinine 0.8 Estimated GFR > 60 BUN/Creatinine Ratio 16 Glucose 87 Calcium 9.1 Triglycerides 52 Cholesterol 137 LDL Cholesterol Direct 100 HDL Cholesterol 39 L Cholesterol/HDL Ratio 3.51 Medications & Allergies - Medications Allergies/Adverse Reactions: Allergies No Known Allergies Allergy (Unverified 07/17/14 19:25) Home Medications: Home Medications Medication Instructions Recorded Confirmed Last Taken Type Metoprolol Tartrate 50 mg PO BID 03/05/19 03/05/19 Unknown History QUEtiapine 50 mg PO DAILY 03/05/19 03/05/19 Unknown History traZODone 50 mg PO PRN 03/05/19 03/05/19 Unknown History Active Medications: Generic Name Dose Route Start Last Admin Trade Name Freq PRN Reason Stop Dose Admin Acetaminophen 650 mg 03/05/19 22:20 Tylenol PO Q4H PRN Headache Aspirin 325 mg 03/06/19 10:00 03/06/19 09:20 Aspirin PO 325 mg QDAY LESLIE Administration Atorvastatin Calcium 80 mg 03/06/19 22:00 03/06/19 22:26 Lipitor PO 80 mg QHS LESLIE Administration Hydroxyurea 500 mg 03/06/19 18:00 Hydrea PO QDAY LESLIE Sodium Chloride 1,000 mls @ 75 mls/hr 03/05/19 23:00 03/05/19 23:54 Nacl 0.9% 1000 Ml IV 75 mls/hr DIRECT LESLIE Administration Lisinopril 20 mg 03/06/19 10:00 03/06/19 09:19 Zestril PO 20 mg QDAY LESLIE Administration Metoprolol Tartrate 50 mg 03/06/19 10:00 03/06/19 22:26 Lopressor PO 50 mg BID LESLIE Administration Ondansetron HCl 4 mg 03/05/19 22:20 Zofran IV Q8H PRN Nausea And Vomiting Quetiapine Fumarate 50 mg 03/06/19 10:00 03/06/19 09:20 Seroquel PO 50 mg DAILY LESLIE Administration Trazodone HCl 50 mg 03/06/19 10:00 03/06/19 22:26 Desyrel PO 50 mg QDAY PRN Administration Pain, Moderate (4-6)
[2019-03-07] MEDS: LOPRESSOR PO SCH ×2 (09:22→21:02)
[2019-03-07] MEDS: ZESTRIL PO SCH (09:22)
[2019-03-07] MEDS: HYDREA PO SCH ×2 (09:22→09:23)
[2019-03-07] MEDS: ASPIRIN PO SCH (09:22)
--- NOTE | 2019-03-07 14:00 | Progress Note ---
Subjective Date of service: 03/07/19 Interval history: spoke to still aphasic but more alert meds being adjusted ie lopressor plan further w/o GLEN II cytokine Objective - Vital Sign Vital Signs - 12hr 03/07/19 03/07/19 03/07/19 04:45 08:19 08:21 Temperature 98.0 F 97.9 F 97.9 F Pulse Rate 58 L Respiratory 18 18 18 Rate Blood Pressure 133/66 Blood Pressure [Right] O2 Sat by Pulse 97 Oximetry 03/07/19 03/07/19 08:23 11:40 Temperature 98.4 F 98.3 F Pulse Rate 60 64 Respiratory 18 18 Rate Blood Pressure 96/59 Blood Pressure 121/70 [Right] O2 Sat by Pulse 99 95 Oximetry - Laboratory Findings CBC and BMP: 03/07/19 05:28 03/07/19 05:28 Abnormal Lab Findings: Abnormal Labs 03/05/19 03/05/19 03/06/19 17:46 17:46 13:16 Hgb Hct MCH 33 H MCHC 36 H RDW 18.3 H Plt Count 652 H [place] % (Auto) 12.0 H Eos % (Auto) 6.6 H [place] # 1.0 H Eos # 0.6 H Glucose 107 H Total Creatine Kinase 211 H HDL Cholesterol 39 L 03/07/19 05:28 Hgb 11.6 L Hct 34.4 L MCH MCHC RDW 18.3 H Plt Count 633 H [place] % (Auto) Eos % (Auto) [place] # Eos # Glucose Total Creatine Kinase HDL Cholesterol
--- NOTE | 2019-03-07 15:09 | Progress Note ---
Assessment and Plan Assessment and plan: Acute ischemic stroke left posterior frontal white matter On Aspirin daily Neurology following Patient had history of recent stroke and just came out of Rehab a few weeks ago DERICK [address] anderson Thrombocytosis hematology following. COPD Stable Hypertension Monitor BP Full code status Discussed with family Hospitalist Physical - Physical exam Narrative exam: en: Not in acute distress, lying in bed HEENT: Normocephalic, atraumatic Neck: supple, no JVD Heart: S1 and S2 reg, no murmurs, rubs or gallop Lungs: Clear, no crackles Abd: soft, non tender, non distended, normal BS Ext: No edema, no clubbing, no cyanosis, Neuro: Awake, dysarthria, right sided weakness - Constitutional Vitals: Temp Pulse Resp BP Pulse Ox 98.3 F 64 18 96/59 95 03/07/19 11:40 03/07/19 11:40 03/07/19 11:40 03/07/19 11:40 03/07/19 11:40 Results - Labs CBC & Chem 7: 03/07/19 05:28 03/07/19 05:28 Labs: Laboratory Last Values WBC 7.4 K/mm3 (4.5-11.0) 03/07/19 05:28 RBC 3.75 M/mm3 (3.65-5.03) 03/07/19 05:28 Hgb 11.6 gm/dl (11.8-15.2) L 03/07/19 05:28 Hct 34.4 % (35.5-45.6) L 03/07/19 05:28 MCV 92 fl (84-94) 03/07/19 05:28 MCH 31 pg (28-32) 03/07/19 05:28 MCHC 34 % (32-34) 03/07/19 05:28 RDW 18.3 % (13.2-15.2) H 03/07/19 05:28 Plt Count 633 K/mm3 (140-440) H 03/07/19 05:28 Lymph % (Auto) 24.4 % (13.4-35.0) 03/05/19 17:46 [place] % (Auto) 12.0 % (0.0-7.3) H 03/05/19 17:46 Eos % (Auto) 6.6 % (0.0-4.3) H 03/05/19 17:46 Baso % (Auto) 1.0 % (0.0-1.8) 03/05/19 17:46 Lymph # 2.1 K/mm3 (1.2-5.4) 03/05/19 17:46 [place] # 1.0 K/mm3 (0.0-0.8) H 03/05/19 17:46 Eos # 0.6 K/mm3 (0.0-0.4) H 03/05/19 17:46 Baso # 0.1 K/mm3 (0.0-0.1) 03/05/19 17:46 Seg Neutrophils % 56.0 % (40.0-70.0) 03/05/19 17:46 Seg Neutrophils # 4.8 K/mm3 (1.8-7.7) 03/05/19 17:46 PT 14.9 Sec. (12.2-14.9) 03/05/19 17:46 INR 1.10 (0.87-1.13) 03/05/19 17:46 APTT 31.4 Sec. (24.2-36.6) 03/05/19 17:46 Thrombin Time 15.2 Sec. (15.1-19.6) 03/05/19 17:46 Sodium 137 mmol/L (137-145) 03/07/19 05:28 Potassium 4.0 mmol/L (3.6-5.0) 03/07/19 05:28 Chloride 99.9 mmol/L (98-107) 03/07/19 05:28 Carbon Dioxide 24 mmol/L (22-30) 03/07/19 05:28 Anion Gap 17 mmol/L 03/07/19 05:28 BUN 13 mg/dL (9-20) 03/07/19 05:28 Creatinine 0.8 mg/dL (0.8-1.5) 03/07/19 05:28 Estimated GFR > 60 ml/min 03/07/19 05:28 BUN/Creatinine Ratio 16 % 03/07/19 05:28 Glucose 87 mg/dL (75-100) 03/07/19 05:28 POC Glucose 91 (70-105) 03/06/19 04:12 Calcium 9.1 mg/dL (8.4-10.2) 03/07/19 05:28 Total Creatine Kinase 211 units/L (55-170) H 03/05/19 17:46 CK-MB (CK-2) 1.0 ng/mL (0.0-4.0) 03/05/19 17:46 CK-MB (CK-2) Rel Index 0.4 (0-4) 03/05/19 17:46 Troponin T < 0.010 ng/mL (0.00-0.029) 03/05/19 17:46 Triglycerides 52 mg/dL (2-149) 03/06/19 13:16 Cholesterol 137 mg/dL (50-199) 03/06/19 13:16 LDL Cholesterol Direct 100 mg/dL (50-130) 03/06/19 13:16 HDL Cholesterol 39 mg/dL (40-59) L 03/06/19 13:16 Cholesterol/HDL Ratio 3.51 % 03/06/19 13:16 Active Medications - Current Medications Current Medications: Generic Name Dose Route Start Last Admin Trade Name Freq PRN Reason Stop Dose Admin Acetaminophen 650 mg 03/05/19 22:20 Tylenol PO Q4H PRN Headache Aspirin 325 mg 03/06/19 10:00 03/07/19 09:22 Aspirin PO 325 mg QDAY LESLIE Administration Atorvastatin Calcium 80 mg 03/06/19 22:00 03/06/19 22:26 Lipitor PO 80 mg QHS LESLIE Administration Hydroxyurea 500 mg 03/06/19 18:00 03/07/19 09:23 Hydrea PO Not Given QDAY LESLIE Sodium Chloride 1,000 mls @ 75 mls/hr 03/05/19 23:00 03/05/19 23:54 Nacl 0.9% 1000 Ml IV 75 mls/hr DIRECT LESLIE Administration Lisinopril 20 mg 03/06/19 10:00 03/07/19 09:22 Zestril PO 20 mg QDAY LESLIE Administration Metoprolol Tartrate 50 mg 03/06/19 10:00 03/07/19 09:22 Lopressor PO 50 mg BID LESLIE Administration Ondansetron HCl 4 mg 03/05/19 22:20 Zofran IV Q8H PRN Nausea And Vomiting Quetiapine Fumarate 50 mg 03/06/19 10:00 03/07/19 09:22 Seroquel PO 50 mg DAILY LESLIE Administration Trazodone HCl 50 mg 03/06/19 10:00 03/06/19 22:26 Desyrel PO 50 mg QDAY PRN Administration Pain, Moderate (4-6)
[2019-03-07] MEDS: NACL 0.9% 1000 ML 1,000 ML IV SCH (17:23)
[2019-03-08 05:45] LABS: Hematocrit 34.4 % (35.5-45.6); Hemoglobin 11.4 gm/dl (11.8-15.2); Mean Corpuscular HGB Conc 33 % (32-34); Mean Corpuscular Volume 91 fl (84-94); Platelet Count 673 K/mm3 (140-440); Red Blood Count 3.77 M/mm3 (3.65-5.03); Red Cell Distribution Width 17.9 % (13.2-15.2)
--- NOTE | 2019-03-08 08:18 | Hem/Onc Progress Note ---
Assessment and Plan 1. Based on the information, JAK2 positive, chronic myeloproliferative disorders, ET and based on the lab in the past, the patient's platelet count in 2017 was 855, may be secondary to the chronic myeloproliferative disorders. 2. The patient was on Hydrea. reinitiate the same. 3. the patient's family will get more information. 4. History of cerebrovascular accident. 5. History of chronic obstructive pulmonary disease, history of hypertension, history of smoking. I will follow the patient during inpatient stay. The patient will be seen in the hospital and then he will follow up with Dr. Frankel in the clinic setting. 03/08 able to move rt side - still rt is weaker than left. has a PEG tube - eating - d/w dr chester pt on hydrea - not given - 03/07 d/w pharmacy ct ASA - Patient Problems (1) Myeloproliferative disease Current Visit: Yes Status: Acute Subjective Date of service: 03/08/19 Principal diagnosis: ET - high plt Interval history: doing better - eating Objective - Constitutional Vitals: Last Vital Signs Temp 98.0 F 03/08/19 04:07 Pulse 64 03/08/19 06:00 Resp 14 03/08/19 04:07 BP 143/80 03/08/19 04:07 Pulse Ox 96 03/08/19 04:07 Pain Intensity (0-10): denies any pain General appearance: no acute distress Performance status: 3-limited selfcare - EENT Eyes: EOM intact ENT: hearing intact Lymph node exam: negative cervical - Neck Neck: normal ROM - Respiratory Respiratory effort: Positive: normal Respiratory: bilateral: CTA - Cardiovascular Heart Sounds: Present: S1 & S2 Extremities: No edema - Gastrointestinal General gastrointestinal: Present: soft, non-tender, other (PEG+) Rectal Exam: deferred - Genitourinary Male genitourinary: Present: deferred - Integumentary Integumentary: warm - Musculoskeletal Musculoskeletal: right sided weakness - Labs Lab Results: Laboratory Results - last 24 hr 03/08/19 05:09 WBC 8.3 RBC 3.77 Hgb 11.4 L Hct 34.4 L MCV 91 MCH 30 MCHC 33 RDW 17.9 H Plt Count 673 H Medications & Allergies - Medications Allergies/Adverse Reactions: Allergies No Known Allergies Allergy (Unverified 07/17/14 19:25) Home Medications: Home Medications Medication Instructions Recorded Confirmed Last Taken Type Metoprolol Tartrate 50 mg PO BID 03/05/19 03/05/19 Unknown History QUEtiapine 50 mg PO DAILY 03/05/19 03/05/19 Unknown History traZODone 50 mg PO PRN 03/05/19 03/05/19 Unknown History Active Medications: Generic Name Dose Route Start Last Admin Trade Name Freq PRN Reason Stop Dose Admin Acetaminophen 650 mg 03/05/19 22:20 Tylenol PO Q4H PRN Headache Aspirin 325 mg 03/06/19 10:00 03/07/19 09:22 Aspirin PO 325 mg QDAY LESLIE Administration Atorvastatin Calcium 80 mg 03/06/19 22:00 03/07/19 21:02 Lipitor PO 80 mg QHS LESLIE Administration Hydroxyurea 500 mg 03/06/19 18:00 03/07/19 09:23 Hydrea PO Not Given QDAY LESLIE Sodium Chloride 1,000 mls @ 75 mls/hr 03/05/19 23:00 03/07/19 17:23 Nacl 0.9% 1000 Ml IV 75 mls/hr DIRECT LESLIE Administration Lisinopril 20 mg 03/06/19 10:00 03/07/19 09:22 Zestril PO 20 mg QDAY LESLIE Administration Metoprolol Tartrate 50 mg 03/06/19 10:00 03/07/19 21:02 Lopressor PO 50 mg BID LESLIE Administration Ondansetron HCl 4 mg 03/05/19 22:20 Zofran IV Q8H PRN Nausea And Vomiting Quetiapine Fumarate 50 mg 03/06/19 10:00 03/07/19 09:22 Seroquel PO 50 mg DAILY LESLIE Administration Trazodone HCl 50 mg 03/06/19 10:00 03/06/19 22:26 Desyrel PO 50 mg QDAY PRN Administration Pain, Moderate (4-6)
[2019-03-08] MEDS: HYDREA PO SCH (10:06)
[2019-03-08] MEDS: LOPRESSOR PO SCH ×2 (10:06→21:44)
[2019-03-08] MEDS: ZESTRIL PO SCH (10:07)
[2019-03-08] MEDS: ASPIRIN PO SCH (10:07)
--- NOTE | 2019-03-08 11:32 | Progress Note ---
Assessment and Plan Assessment and plan: Acute ischemic stroke left posterior frontal white matter On Aspirin daily Neurology following Patient had history of recent stroke and just came out of Rehab a few weeks ago DERICK [address] Kebede Thrombocytosis hematology following. Dysphagia Patient has PEG tube but passed speech evaluation and has been tolerating diet COPD Stable Hypertension Monitor BP Full code status Discussed with family PT recommends acute rehab placement. case management working on Rehab placement. History Interval history: slurred speech right sided weakness Hospitalist Physical - Physical exam Narrative exam: en: Not in acute distress, lying in bed HEENT: Normocephalic, atraumatic Neck: supple, no JVD Heart: S1 and S2 reg, no murmurs, rubs or gallop Lungs: Clear, no crackles Abd: soft, non tender, non distended, normal BS,PEG tube Ext: No edema, no clubbing, no cyanosis, Neuro: Awake, dysarthria, right sided weakness - Constitutional Vitals: Temp Pulse Resp BP Pulse Ox 99.2 F 72 19 125/66 92 03/08/19 08:00 03/08/19 10:07 03/08/19 08:00 03/08/19 10:07 03/08/19 09:21 Results - Labs CBC & Chem 7: 03/09/19 05:15 03/07/19 05:28 Labs: Laboratory Last Values WBC 8.3 K/mm3 (4.5-11.0) 03/08/19 05:09 RBC 3.77 M/mm3 (3.65-5.03) 03/08/19 05:09 Hgb 11.4 gm/dl (11.8-15.2) L 03/08/19 05:09 Hct 34.4 % (35.5-45.6) L 03/08/19 05:09 MCV 91 fl (84-94) 03/08/19 05:09 MCH 30 pg (28-32) 03/08/19 05:09 MCHC 33 % (32-34) 03/08/19 05:09 RDW 17.9 % (13.2-15.2) H 03/08/19 05:09 Plt Count 673 K/mm3 (140-440) H 03/08/19 05:09 Lymph % (Auto) 24.4 % (13.4-35.0) 03/05/19 17:46 [place] % (Auto) 12.0 % (0.0-7.3) H 03/05/19 17:46 Eos % (Auto) 6.6 % (0.0-4.3) H 03/05/19 17:46 Baso % (Auto) 1.0 % (0.0-1.8) 03/05/19 17:46 Lymph # 2.1 K/mm3 (1.2-5.4) 03/05/19 17:46 [place] # 1.0 K/mm3 (0.0-0.8) H 03/05/19 17:46 Eos # 0.6 K/mm3 (0.0-0.4) H 03/05/19 17:46 Baso # 0.1 K/mm3 (0.0-0.1) 03/05/19 17:46 Seg Neutrophils % 56.0 % (40.0-70.0) 03/05/19 17:46 Seg Neutrophils # 4.8 K/mm3 (1.8-7.7) 03/05/19 17:46 PT 14.9 Sec. (12.2-14.9) 03/05/19 17:46 INR 1.10 (0.87-1.13) 03/05/19 17:46 APTT 31.4 Sec. (24.2-36.6) 03/05/19 17:46 Thrombin Time 15.2 Sec. (15.1-19.6) 03/05/19 17:46 Sodium 137 mmol/L (137-145) 03/07/19 05:28 Potassium 4.0 mmol/L (3.6-5.0) 03/07/19 05:28 Chloride 99.9 mmol/L (98-107) 03/07/19 05:28 Carbon Dioxide 24 mmol/L (22-30) 03/07/19 05:28 Anion Gap 17 mmol/L 03/07/19 05:28 BUN 13 mg/dL (9-20) 03/07/19 05:28 Creatinine 0.8 mg/dL (0.8-1.5) 03/07/19 05:28 Estimated GFR > 60 ml/min 03/07/19 05:28 BUN/Creatinine Ratio 16 % 03/07/19 05:28 Glucose 87 mg/dL (75-100) 03/07/19 05:28 POC Glucose 91 (70-105) 03/06/19 04:12 Calcium 9.1 mg/dL (8.4-10.2) 03/07/19 05:28 Total Creatine Kinase 211 units/L (55-170) H 03/05/19 17:46 CK-MB (CK-2) 1.0 ng/mL (0.0-4.0) 03/05/19 17:46 CK-MB (CK-2) Rel Index 0.4 (0-4) 03/05/19 17:46 Troponin T < 0.010 ng/mL (0.00-0.029) 03/05/19 17:46 Triglycerides 52 mg/dL (2-149) 03/06/19 13:16 Cholesterol 137 mg/dL (50-199) 03/06/19 13:16 LDL Cholesterol Direct 100 mg/dL (50-130) 03/06/19 13:16 HDL Cholesterol 39 mg/dL (40-59) L 03/06/19 13:16 Cholesterol/HDL Ratio 3.51 % 03/06/19 13:16 Active Medications - Current Medications Current Medications: Generic Name Dose Route Start Last Admin Trade Name Freq PRN Reason Stop Dose Admin Acetaminophen 650 mg 03/05/19 22:20 Tylenol PO Q4H PRN Headache Aspirin 325 mg 03/06/19 10:00 03/08/19 10:07 Aspirin PO 325 mg QDAY LESLIE Administration Atorvastatin Calcium 80 mg 03/06/19 22:00 03/07/19 21:02 Lipitor PO 80 mg QHS LESLIE Administration Hydroxyurea 500 mg 03/06/19 18:00 03/08/19 10:06 Hydrea PO 500 mg QDAY LESLIE Administration Sodium Chloride 1,000 mls @ 75 mls/hr 03/05/19 23:00 03/07/19 17:23 Nacl 0.9% 1000 Ml IV 75 mls/hr DIRECT LESLIE Administration Lisinopril 20 mg 03/06/19 10:00 03/08/19 10:07 Zestril PO 20 mg QDAY LESLIE Administration Metoprolol Tartrate 50 mg 03/06/19 10:00 03/08/19 10:06 Lopressor PO 50 mg BID LESLIE Administration Ondansetron HCl 4 mg 03/05/19 22:20 Zofran IV Q8H PRN Nausea And Vomiting Quetiapine Fumarate 50 mg 03/06/19 10:00 03/08/19 10:06 Seroquel PO 50 mg DAILY LESLIE Administration Trazodone HCl 50 mg 03/06/19 10:00 03/06/19 22:26 Desyrel PO 50 mg QDAY PRN Administration Pain, Moderate (4-6)
--- NOTE | 2019-03-08 13:49 | Progress Note ---
Subjective Date of service: 03/08/19 Principal diagnosis: ET - high plt Interval history: still too sleepy will recommend holding the seroquel did speak to re stroke rehab Objective - Vital Sign Vital Signs - 12hr 03/08/19 03/08/19 03/08/19 04:07 06:00 08:00 Temperature 98.0 F 99.2 F Pulse Rate 72 64 76 Respiratory 14 19 Rate Blood Pressure 143/80 Blood Pressure 125/66 [Right] O2 Sat by Pulse 96 92 Oximetry 03/08/19 03/08/19 03/08/19 09:21 10:06 10:07 Temperature Pulse Rate 74 72 72 Respiratory Rate Blood Pressure 125/66 125/66 125/66 Blood Pressure [Right] O2 Sat by Pulse 92 Oximetry - Laboratory Findings CBC and BMP: 03/08/19 05:09 03/07/19 05:28 Abnormal Lab Findings: Abnormal Labs 03/05/19 03/05/19 03/06/19 17:46 17:46 13:16 Hgb Hct MCH 33 H MCHC 36 H RDW 18.3 H Plt Count 652 H [place] % (Auto) 12.0 H Eos % (Auto) 6.6 H [place] # 1.0 H Eos # 0.6 H Glucose 107 H Total Creatine Kinase 211 H HDL Cholesterol 39 L 03/07/19 03/08/19 05:28 05:09 Hgb 11.6 L 11.4 L Hct 34.4 L 34.4 L MCH MCHC RDW 18.3 H 17.9 H Plt Count 633 H 673 H [place] % (Auto) Eos % (Auto) [place] # Eos # Glucose Total Creatine Kinase HDL Cholesterol
[2019-03-09 05:51] LABS: Hematocrit 34.7 % (35.5-45.6); Hemoglobin 11.6 gm/dl (11.8-15.2); Mean Corpuscular HGB Conc 34 % (32-34); Mean Corpuscular Volume 91 fl (84-94); Platelet Count 696 K/mm3 (140-440); Red Cell Distribution Width 17.8 % (13.2-15.2)
--- NOTE | 2019-03-09 08:12 | Hem/Onc Progress Note ---
Assessment and Plan 1. Based on the information, JAK2 positive, chronic myeloproliferative disorders, ET and based on the lab in the past, the patient's platelet count in 2017 was 855, may be secondary to the chronic myeloproliferative disorders. 2. The patient was on Hydrea. reinitiate the same. 3. the patient's family will get more information. 4. History of cerebrovascular accident. 5. History of chronic obstructive pulmonary disease, history of hypertension, history of smoking. I will follow the patient during inpatient stay. The patient will be seen in the hospital and then he will follow up with Dr. Frankel in the clinic setting. 03/09 able to move rt side - still rt is weaker than left. has a PEG tube - eating - d/w dr chester pt on hydrea ct ASA has slurred speech - Patient Problems (1) Myeloproliferative disease Current Visit: Yes Status: Acute Subjective Date of service: 03/09/19 Principal diagnosis: high plt Objective - Constitutional Vitals: Last Vital Signs Temp 98.7 F 03/09/19 05:24 Pulse 65 03/09/19 05:24 Resp 18 03/09/19 05:24 BP 128/72 03/09/19 05:24 Pulse Ox 96 03/09/19 05:24 Pain Intensity (0-10): denies any pain General appearance: no acute distress Performance status: 3-limited selfcare - EENT Eyes: EOM intact ENT: clear oral mucosa - Neck Neck: normal ROM - Respiratory Respiratory effort: Positive: normal Respiratory: bilateral: CTA - Cardiovascular Heart Sounds: Present: S1 & S2 Extremities: No edema - Gastrointestinal General gastrointestinal: Present: soft, non-tender Rectal Exam: deferred - Genitourinary Male genitourinary: Present: deferred - Integumentary Integumentary: warm - Musculoskeletal Musculoskeletal: right sided weakness - Neurologic Neurologic: other (slurred speech) - Labs Lab Results: Laboratory Results - last 24 hr 03/09/19 05:15 WBC 7.3 RBC 3.80 Hgb 11.6 L Hct 34.7 L MCV 91 MCH 31 MCHC 34 RDW 17.8 H Plt Count 696 H Medications & Allergies - Medications Allergies/Adverse Reactions: Allergies No Known Allergies Allergy (Unverified 07/17/14 19:25) Home Medications: Home Medications Medication Instructions Recorded Confirmed Last Taken Type Metoprolol Tartrate 50 mg PO BID 03/05/19 03/05/19 Unknown History QUEtiapine 50 mg PO DAILY 03/05/19 03/05/19 Unknown History traZODone 50 mg PO PRN 03/05/19 03/05/19 Unknown History Active Medications: Generic Name Dose Route Start Last Admin Trade Name Freq PRN Reason Stop Dose Admin Acetaminophen 650 mg 03/05/19 22:20 Tylenol PO Q4H PRN Headache Aspirin 325 mg 03/06/19 10:00 03/08/19 10:07 Aspirin PO 325 mg QDAY LESLIE Administration Atorvastatin Calcium 80 mg 03/06/19 22:00 03/08/19 21:45 Lipitor PO 80 mg QHS LESLIE Administration Hydroxyurea 500 mg 03/06/19 18:00 03/08/19 10:06 Hydrea PO 500 mg QDAY LESLIE Administration Sodium Chloride 1,000 mls @ 75 mls/hr 03/05/19 23:00 03/07/19 17:23 Nacl 0.9% 1000 Ml IV 75 mls/hr DIRECT LESLIE Administration Lisinopril 20 mg 03/06/19 10:00 03/08/19 10:07 Zestril PO 20 mg QDAY LESLIE Administration Metoprolol Tartrate 50 mg 03/06/19 10:00 03/08/19 21:44 Lopressor PO 50 mg BID LESLIE Administration Ondansetron HCl 4 mg 03/05/19 22:20 Zofran IV Q8H PRN Nausea And Vomiting Trazodone HCl 50 mg 03/06/19 10:00 03/06/19 22:26 Desyrel PO 50 mg QDAY PRN Administration Pain, Moderate (4-6)
[2019-03-09] MEDS: ASPIRIN PO SCH (10:22)
[2019-03-09] MEDS: HYDREA PO SCH (10:22)
[2019-03-09] MEDS: LOPRESSOR PO SCH ×2 (10:23→21:09)
[2019-03-09] MEDS: ZESTRIL PO SCH (10:23)
--- NOTE | 2019-03-09 13:20 | Progress Note ---
Subjective Date of service: 03/09/19 Principal diagnosis: ET - high plt Interval history: off the seroquel and is much more alert / able to eat and swallow on his own !!! speech coming back stable not here to speak with Objective - Vital Sign Vital Signs - 12hr 03/09/19 03/09/19 03/09/19 05:24 08:21 10:23 Temperature 98.7 F 98.7 F Pulse Rate 65 62 62 Respiratory 18 18 Rate Blood Pressure 128/72 147/74 147/74 O2 Sat by Pulse 96 94 Oximetry 03/09/19 12:29 Temperature 98.6 F Pulse Rate 61 Respiratory 16 Rate Blood Pressure 140/79 O2 Sat by Pulse 95 Oximetry - Laboratory Findings CBC and BMP: 03/09/19 05:15 03/07/19 05:28 Abnormal Lab Findings: Abnormal Labs 03/05/19 03/05/19 03/06/19 17:46 17:46 13:16 Hgb Hct MCH 33 H MCHC 36 H RDW 18.3 H Plt Count 652 H [place] % (Auto) 12.0 H Eos % (Auto) 6.6 H [place] # 1.0 H Eos # 0.6 H Glucose 107 H Total Creatine Kinase 211 H HDL Cholesterol 39 L 03/07/19 03/08/19 03/09/19 05:28 05:09 05:15 Hgb 11.6 L 11.4 L 11.6 L Hct 34.4 L 34.4 L 34.7 L MCH MCHC RDW 18.3 H 17.9 H 17.8 H Plt Count 633 H 673 H 696 H [place] % (Auto) Eos % (Auto) [place] # Eos # Glucose Total Creatine Kinase HDL Cholesterol
--- NOTE | 2019-03-09 17:14 | Progress Note ---
Assessment and Plan Assessment and plan: Acute ischemic stroke left posterior frontal white matter On Aspirin daily Neurology following Patient had history of recent stroke and just came out of Rehab a few weeks ago DERICK [address] Kebede Thrombocytosis hematology following. Dysphagia Patient has PEG tube but passed speech evaluation and has been tolerating diet COPD Stable Hypertension Monitor BP Full code status Discussed with family PT recommends acute rehab placement. case management working on Rehab placement. History Interval history: slurred speech right sided weakness Hospitalist Physical - Physical exam Narrative exam: en: Not in acute distress, lying in bed HEENT: Normocephalic, atraumatic Neck: supple, no JVD Heart: S1 and S2 reg, no murmurs, rubs or gallop Lungs: Clear, no crackles Abd: soft, non tender, non distended, normal BS,PEG tube Ext: No edema, no clubbing, no cyanosis, Neuro: Awake, dysarthria, right sided weakness - Constitutional Vitals: Temp Pulse Resp BP Pulse Ox 98.6 F 61 16 140/79 95 03/09/19 12:29 03/09/19 12:29 03/09/19 12:29 03/09/19 12:29 03/09/19 12:29 Results - Labs CBC & Chem 7: 03/09/19 05:15 03/07/19 05:28 Labs: Laboratory Last Values WBC 7.3 K/mm3 (4.5-11.0) 03/09/19 05:15 RBC 3.80 M/mm3 (3.65-5.03) 03/09/19 05:15 Hgb 11.6 gm/dl (11.8-15.2) L 03/09/19 05:15 Hct 34.7 % (35.5-45.6) L 03/09/19 05:15 MCV 91 fl (84-94) 03/09/19 05:15 MCH 31 pg (28-32) 03/09/19 05:15 MCHC 34 % (32-34) 03/09/19 05:15 RDW 17.8 % (13.2-15.2) H 03/09/19 05:15 Plt Count 696 K/mm3 (140-440) H 03/09/19 05:15 Lymph % (Auto) 24.4 % (13.4-35.0) 03/05/19 17:46 [place] % (Auto) 12.0 % (0.0-7.3) H 03/05/19 17:46 Eos % (Auto) 6.6 % (0.0-4.3) H 03/05/19 17:46 Baso % (Auto) 1.0 % (0.0-1.8) 03/05/19 17:46 Lymph # 2.1 K/mm3 (1.2-5.4) 03/05/19 17:46 [place] # 1.0 K/mm3 (0.0-0.8) H 03/05/19 17:46 Eos # 0.6 K/mm3 (0.0-0.4) H 03/05/19 17:46 Baso # 0.1 K/mm3 (0.0-0.1) 03/05/19 17:46 Seg Neutrophils % 56.0 % (40.0-70.0) 03/05/19 17:46 Seg Neutrophils # 4.8 K/mm3 (1.8-7.7) 03/05/19 17:46 PT 14.9 Sec. (12.2-14.9) 03/05/19 17:46 INR 1.10 (0.87-1.13) 03/05/19 17:46 APTT 31.4 Sec. (24.2-36.6) 03/05/19 17:46 Thrombin Time 15.2 Sec. (15.1-19.6) 03/05/19 17:46 Sodium 137 mmol/L (137-145) 03/07/19 05:28 Potassium 4.0 mmol/L (3.6-5.0) 03/07/19 05:28 Chloride 99.9 mmol/L (98-107) 03/07/19 05:28 Carbon Dioxide 24 mmol/L (22-30) 03/07/19 05:28 Anion Gap 17 mmol/L 03/07/19 05:28 BUN 13 mg/dL (9-20) 03/07/19 05:28 Creatinine 0.8 mg/dL (0.8-1.5) 03/07/19 05:28 Estimated GFR > 60 ml/min 03/07/19 05:28 BUN/Creatinine Ratio 16 % 03/07/19 05:28 Glucose 87 mg/dL (75-100) 03/07/19 05:28 POC Glucose 91 (70-105) 03/06/19 04:12 Calcium 9.1 mg/dL (8.4-10.2) 03/07/19 05:28 Total Creatine Kinase 211 units/L (55-170) H 03/05/19 17:46 CK-MB (CK-2) 1.0 ng/mL (0.0-4.0) 03/05/19 17:46 CK-MB (CK-2) Rel Index 0.4 (0-4) 03/05/19 17:46 Troponin T < 0.010 ng/mL (0.00-0.029) 03/05/19 17:46 Triglycerides 52 mg/dL (2-149) 03/06/19 13:16 Cholesterol 137 mg/dL (50-199) 03/06/19 13:16 LDL Cholesterol Direct 100 mg/dL (50-130) 03/06/19 13:16 HDL Cholesterol 39 mg/dL (40-59) L 03/06/19 13:16 Cholesterol/HDL Ratio 3.51 % 03/06/19 13:16 Active Medications - Current Medications Current Medications: Generic Name Dose Route Start Last Admin Trade Name Freq PRN Reason Stop Dose Admin Acetaminophen 650 mg 03/05/19 22:20 Tylenol PO Q4H PRN Headache Aspirin 325 mg 03/06/19 10:00 03/09/19 10:22 Aspirin PO 325 mg QDAY LESLIE Administration Atorvastatin Calcium 80 mg 03/06/19 22:00 03/08/19 21:45 Lipitor PO 80 mg QHS LESLIE Administration Hydroxyurea 500 mg 03/06/19 18:00 03/09/19 10:22 Hydrea PO 500 mg QDAY LESLIE Administration Sodium Chloride 1,000 mls @ 75 mls/hr 03/05/19 23:00 03/07/19 17:23 Nacl 0.9% 1000 Ml IV 75 mls/hr DIRECT LESLIE Administration Lisinopril 20 mg 03/06/19 10:00 03/09/19 10:23 Zestril PO 20 mg QDAY LESLIE Administration Metoprolol Tartrate 50 mg 03/06/19 10:00 03/09/19 10:23 Lopressor PO 50 mg BID LESLIE Administration Ondansetron HCl 4 mg 03/05/19 22:20 Zofran IV Q8H PRN Nausea And Vomiting Trazodone HCl 50 mg 03/06/19 10:00 03/06/19 22:26 Desyrel PO 50 mg QDAY PRN Administration Pain, Moderate (4-6)
[2019-03-10 07:36] LABS: Hematocrit 35.5 % (35.5-45.6); Hemoglobin 11.8 gm/dl (11.8-15.2); Mean Corpuscular HGB Conc 33 % (32-34); Mean Corpuscular Volume 91 fl (84-94); Platelet Count 750 K/mm3 (140-440); Red Cell Distribution Width 18.3 % (13.2-15.2)
[2019-03-10] MEDS: ASPIRIN PO SCH (09:54)
[2019-03-10] MEDS: ZESTRIL PO SCH (09:54)
[2019-03-10] MEDS: HYDREA PO SCH (09:54)
[2019-03-10] MEDS: LOPRESSOR PO SCH ×2 (09:54→22:32)
[2019-03-10] MEDS ORDERED: LOVENOX SUB-Q ONE (10:00)
--- NOTE | 2019-03-10 10:44 | Progress Note ---
Assessment and Plan Assessment and plan: Acute ischemic stroke left posterior frontal white matter On Aspirin daily Neurology following Patient had history of recent stroke and just came out of Rehab a few weeks ago DERICK [address] Kebede Thrombocytosis hematology following. Dysphagia Patient has PEG tube but passed speech evaluation and has been tolerating diet COPD Stable Hypertension Monitor BP Full code status Discussed with family PT recommends acute rehab placement. case management working on Rehab placement. History Interval history: slurred speech right sided weakness Hospitalist Physical - Physical exam Narrative exam: en: Not in acute distress, lying in bed HEENT: Normocephalic, atraumatic Neck: supple, no JVD Heart: S1 and S2 reg, no murmurs, rubs or gallop Lungs: Clear, no crackles Abd: soft, non tender, non distended, normal BS,PEG tube Ext: No edema, no clubbing, no cyanosis, Neuro: Awake, dysarthria, right sided weakness - Constitutional Vitals: Temp Pulse Resp BP Pulse Ox 98.2 F 64 17 131/69 100 03/10/19 07:48 03/10/19 09:54 03/10/19 08:20 03/10/19 09:54 03/10/19 07:48 Results - Labs CBC & Chem 7: 03/10/19 07:19 03/07/19 05:28 Labs: Laboratory Last Values WBC 9.0 K/mm3 (4.5-11.0) 03/10/19 07:19 RBC 3.90 M/mm3 (3.65-5.03) 03/10/19 07:19 Hgb 11.8 gm/dl (11.8-15.2) 03/10/19 07:19 Hct 35.5 % (35.5-45.6) 03/10/19 07:19 MCV 91 fl (84-94) 03/10/19 07:19 MCH 30 pg (28-32) 03/10/19 07:19 MCHC 33 % (32-34) 03/10/19 07:19 RDW 18.3 % (13.2-15.2) H 03/10/19 07:19 Plt Count 750 K/mm3 (140-440) H 03/10/19 07:19 Lymph % (Auto) 24.4 % (13.4-35.0) 03/05/19 17:46 [place] % (Auto) 12.0 % (0.0-7.3) H 03/05/19 17:46 Eos % (Auto) 6.6 % (0.0-4.3) H 03/05/19 17:46 Baso % (Auto) 1.0 % (0.0-1.8) 03/05/19 17:46 Lymph # 2.1 K/mm3 (1.2-5.4) 03/05/19 17:46 [place] # 1.0 K/mm3 (0.0-0.8) H 03/05/19 17:46 Eos # 0.6 K/mm3 (0.0-0.4) H 03/05/19 17:46 Baso # 0.1 K/mm3 (0.0-0.1) 03/05/19 17:46 Seg Neutrophils % 56.0 % (40.0-70.0) 03/05/19 17:46 Seg Neutrophils # 4.8 K/mm3 (1.8-7.7) 03/05/19 17:46 PT 14.9 Sec. (12.2-14.9) 03/05/19 17:46 INR 1.10 (0.87-1.13) 03/05/19 17:46 APTT 31.4 Sec. (24.2-36.6) 03/05/19 17:46 Thrombin Time 15.2 Sec. (15.1-19.6) 03/05/19 17:46 Sodium 137 mmol/L (137-145) 03/07/19 05:28 Potassium 4.0 mmol/L (3.6-5.0) 03/07/19 05:28 Chloride 99.9 mmol/L (98-107) 03/07/19 05:28 Carbon Dioxide 24 mmol/L (22-30) 03/07/19 05:28 Anion Gap 17 mmol/L 03/07/19 05:28 BUN 13 mg/dL (9-20) 03/07/19 05:28 Creatinine 0.8 mg/dL (0.8-1.5) 03/07/19 05:28 Estimated GFR > 60 ml/min 03/07/19 05:28 BUN/Creatinine Ratio 16 % 03/07/19 05:28 Glucose 87 mg/dL (75-100) 03/07/19 05:28 POC Glucose 91 (70-105) 03/06/19 04:12 Calcium 9.1 mg/dL (8.4-10.2) 03/07/19 05:28 Total Creatine Kinase 211 units/L (55-170) H 03/05/19 17:46 CK-MB (CK-2) 1.0 ng/mL (0.0-4.0) 03/05/19 17:46 CK-MB (CK-2) Rel Index 0.4 (0-4) 03/05/19 17:46 Troponin T < 0.010 ng/mL (0.00-0.029) 03/05/19 17:46 Triglycerides 52 mg/dL (2-149) 03/06/19 13:16 Cholesterol 137 mg/dL (50-199) 03/06/19 13:16 LDL Cholesterol Direct 100 mg/dL (50-130) 03/06/19 13:16 HDL Cholesterol 39 mg/dL (40-59) L 03/06/19 13:16 Cholesterol/HDL Ratio 3.51 % 03/06/19 13:16 Active Medications - Current Medications Current Medications: Generic Name Dose Route Start Last Admin Trade Name Freq PRN Reason Stop Dose Admin Acetaminophen 650 mg 03/05/19 22:20 Tylenol PO Q4H PRN Headache Aspirin 325 mg 03/06/19 10:00 03/10/19 09:54 Aspirin PO 325 mg QDAY LESLIE Administration Atorvastatin Calcium 80 mg 03/06/19 22:00 03/09/19 21:09 Lipitor PO 80 mg QHS LESLIE Administration Hydroxyurea 500 mg 03/06/19 18:00 03/10/19 09:54 Hydrea PO 500 mg QDAY LESLIE Administration Sodium Chloride 1,000 mls @ 75 mls/hr 03/05/19 23:00 03/07/19 17:23 Nacl 0.9% 1000 Ml IV 75 mls/hr DIRECT LESLIE Administration Lisinopril 20 mg 03/06/19 10:00 03/10/19 09:54 Zestril PO 20 mg QDAY LESLIE Administration Metoprolol Tartrate 50 mg 03/06/19 10:00 03/10/19 09:54 Lopressor PO 50 mg BID LESLIE Administration Ondansetron HCl 4 mg 03/05/19 22:20 Zofran IV Q8H PRN Nausea And Vomiting Trazodone HCl 50 mg 03/06/19 10:00 03/06/19 22:26 Desyrel PO 50 mg QDAY PRN Administration Pain, Moderate (4-6)
[2019-03-11 06:55] LABS: Hematocrit 33.8 % (35.5-45.6); Hemoglobin 11.3 gm/dl (11.8-15.2); Mean Corpuscular HGB Conc 34 % (32-34); Mean Corpuscular Volume 91 fl (84-94); Platelet Count 725 K/mm3 (140-440); Red Cell Distribution Width 17.7 % (13.2-15.2)
--- NOTE | 2019-03-11 07:41 | Hem/Onc Progress Note ---
Assessment and Plan 1. Based on the information, JAK2 positive, chronic myeloproliferative disorders, ET and based on the lab in the past, the patient's platelet count in 2017 was 855, may be secondary to the chronic myeloproliferative disorders. 2. The patient was on Hydrea. reinitiate the same. 3. the patient's family will get more information. pending same 4. History of cerebrovascular accident. 5. History of chronic obstructive pulmonary disease, history of hypertension, history of smoking. I will follow the patient during inpatient stay. The patient will be seen in the hospital and then he will follow up with Dr. Frankel in the clinic setting. 03/11 able to move rt side - still rt is weaker than left. has a PEG tube - eating pt on hydrea q daily ct ASA has slurred speech plt 700s - Patient Problems (1) Myeloproliferative disease Current Visit: Yes Status: Acute Subjective Date of service: 03/11/19 Principal diagnosis: ET Interval history: still slurred speech Objective - Constitutional Vitals: Last Vital Signs Temp 97.5 F L 03/11/19 05:24 Pulse 60 03/11/19 05:24 Resp 20 03/11/19 05:24 BP 117/60 03/11/19 05:24 Pulse Ox 97 03/11/19 05:24 Pain Intensity (0-10): denies any pain General appearance: no acute distress Performance status: 3-limited selfcare - EENT Eyes: EOM intact ENT: clear oral mucosa Lymph node exam: negative cervical - Neck Neck: normal ROM - Respiratory Respiratory effort: Positive: normal Respiratory: bilateral: CTA - Cardiovascular Heart Sounds: Present: S1 & S2 Extremities: No edema - Gastrointestinal General gastrointestinal: Present: soft, non-tender Rectal Exam: deferred - Genitourinary Male genitourinary: Present: deferred - Integumentary Integumentary: warm - Musculoskeletal Musculoskeletal: right sided weakness - Neurologic Neurologic: moves all extremities - Labs Lab Results: Laboratory Results - last 24 hr 03/11/19 06:06 WBC 8.3 RBC 3.70 Hgb 11.3 L Hct 33.8 L MCV 91 MCH 31 MCHC 34 RDW 17.7 H Plt Count 725 H Medications & Allergies - Medications Allergies/Adverse Reactions: Allergies No Known Allergies Allergy (Unverified 07/17/14 19:25) Home Medications: Home Medications Medication Instructions Recorded Confirmed Last Taken Type Metoprolol Tartrate 50 mg PO BID 03/05/19 03/05/19 Unknown History QUEtiapine 50 mg PO DAILY 03/05/19 03/05/19 Unknown History traZODone 50 mg PO PRN 03/05/19 03/05/19 Unknown History Active Medications: Generic Name Dose Route Start Last Admin Trade Name Freq PRN Reason Stop Dose Admin Acetaminophen 650 mg 03/05/19 22:20 Tylenol PO Q4H PRN Headache Aspirin 325 mg 03/06/19 10:00 03/10/19 09:54 Aspirin PO 325 mg QDAY LESLIE Administration Atorvastatin Calcium 80 mg 03/06/19 22:00 03/10/19 22:32 Lipitor PO 80 mg QHS LESLIE Administration Hydroxyurea 500 mg 03/06/19 18:00 03/10/19 09:54 Hydrea PO 500 mg QDAY LESLIE Administration Sodium Chloride 1,000 mls @ 75 mls/hr 03/05/19 23:00 03/07/19 17:23 Nacl 0.9% 1000 Ml IV 75 mls/hr DIRECT LESLIE Administration Lisinopril 20 mg 03/06/19 10:00 03/10/19 09:54 Zestril PO 20 mg QDAY LESLIE Administration Metoprolol Tartrate 50 mg 03/06/19 10:00 03/10/19 22:32 Lopressor PO 50 mg BID LESLIE Administration Ondansetron HCl 4 mg 03/05/19 22:20 Zofran IV Q8H PRN Nausea And Vomiting Trazodone HCl 50 mg 03/06/19 10:00 03/06/19 22:26 Desyrel PO 50 mg QDAY PRN Administration Pain, Moderate (4-6)
[2019-03-11] MEDS: HYDREA PO SCH (09:08)
[2019-03-11] MEDS: LOPRESSOR PO SCH (09:09)
[2019-03-11] MEDS: ZESTRIL PO SCH (09:09)
[2019-03-11] MEDS: ASPIRIN PO SCH (09:09)
--- NOTE | 2019-03-11 10:27 | Progress Note ---
Hospitalist Physical - Constitutional Vitals: Temp Pulse Resp BP Pulse Ox 98.2 F 61 16 134/74 98 03/11/19 08:12 03/11/19 09:44 03/11/19 08:32 03/11/19 09:09 03/11/19 08:10 Results - Labs CBC & Chem 7: 03/11/19 06:06 03/07/19 05:28 Labs: Laboratory Last Values WBC 8.3 K/mm3 (4.5-11.0) 03/11/19 06:06 RBC 3.70 M/mm3 (3.65-5.03) 03/11/19 06:06 Hgb 11.3 gm/dl (11.8-15.2) L 03/11/19 06:06 Hct 33.8 % (35.5-45.6) L 03/11/19 06:06 MCV 91 fl (84-94) 03/11/19 06:06 MCH 31 pg (28-32) 03/11/19 06:06 MCHC 34 % (32-34) 03/11/19 06:06 RDW 17.7 % (13.2-15.2) H 03/11/19 06:06 Plt Count 725 K/mm3 (140-440) H 03/11/19 06:06 Lymph % (Auto) 24.4 % (13.4-35.0) 03/05/19 17:46 Cook % (Auto) 12.0 % (0.0-7.3) H 03/05/19 17:46 Eos % (Auto) 6.6 % (0.0-4.3) H 03/05/19 17:46 Baso % (Auto) 1.0 % (0.0-1.8) 03/05/19 17:46 Lymph # 2.1 K/mm3 (1.2-5.4) 03/05/19 17:46 Cook # 1.0 K/mm3 (0.0-0.8) H 03/05/19 17:46 Eos # 0.6 K/mm3 (0.0-0.4) H 03/05/19 17:46 Baso # 0.1 K/mm3 (0.0-0.1) 03/05/19 17:46 Seg Neutrophils % 56.0 % (40.0-70.0) 03/05/19 17:46 Seg Neutrophils # 4.8 K/mm3 (1.8-7.7) 03/05/19 17:46 PT 14.9 Sec. (12.2-14.9) 03/05/19 17:46 INR 1.10 (0.87-1.13) 03/05/19 17:46 APTT 31.4 Sec. (24.2-36.6) 03/05/19 17:46 Thrombin Time 15.2 Sec. (15.1-19.6) 03/05/19 17:46 Sodium 137 mmol/L (137-145) 03/07/19 05:28 Potassium 4.0 mmol/L (3.6-5.0) 03/07/19 05:28 Chloride 99.9 mmol/L (98-107) 03/07/19 05:28 Carbon Dioxide 24 mmol/L (22-30) 03/07/19 05:28 Anion Gap 17 mmol/L 03/07/19 05:28 BUN 13 mg/dL (9-20) 03/07/19 05:28 Creatinine 0.8 mg/dL (0.8-1.5) 03/07/19 05:28 Estimated GFR > 60 ml/min 03/07/19 05:28 BUN/Creatinine Ratio 16 % 03/07/19 05:28 Glucose 87 mg/dL (75-100) 03/07/19 05:28 POC Glucose 91 (70-105) 03/06/19 04:12 Calcium 9.1 mg/dL (8.4-10.2) 03/07/19 05:28 Total Creatine Kinase 211 units/L (55-170) H 03/05/19 17:46 CK-MB (CK-2) 1.0 ng/mL (0.0-4.0) 03/05/19 17:46 CK-MB (CK-2) Rel Index 0.4 (0-4) 03/05/19 17:46 Troponin T < 0.010 ng/mL (0.00-0.029) 03/05/19 17:46 Triglycerides 52 mg/dL (2-149) 03/06/19 13:16 Cholesterol 137 mg/dL (50-199) 03/06/19 13:16 LDL Cholesterol Direct 100 mg/dL (50-130) 03/06/19 13:16 HDL Cholesterol 39 mg/dL (40-59) L 03/06/19 13:16 Cholesterol/HDL Ratio 3.51 % 03/06/19 13:16 Active Medications - Current Medications Current Medications: Generic Name Dose Route Start Last Admin Trade Name Freq PRN Reason Stop Dose Admin Acetaminophen 650 mg 03/05/19 22:20 Tylenol PO Q4H PRN Headache Aspirin 325 mg 03/06/19 10:00 03/11/19 09:09 Aspirin PO 325 mg QDAY LESLIE Administration Atorvastatin Calcium 80 mg 03/06/19 22:00 03/10/19 22:32 Lipitor PO 80 mg QHS LESLIE Administration Hydroxyurea 500 mg 03/06/19 18:00 03/11/19 09:08 Hydrea PO 500 mg QDAY LESLIE Administration Sodium Chloride 1,000 mls @ 75 mls/hr 03/05/19 23:00 03/07/19 17:23 Nacl 0.9% 1000 Ml IV 75 mls/hr DIRECT LESLIE Administration Lisinopril 20 mg 03/06/19 10:00 03/11/19 09:09 Zestril PO 20 mg QDAY LESLIE Administration Metoprolol Tartrate 50 mg 03/06/19 10:00 03/11/19 09:09 Lopressor PO 50 mg BID LESLIE Administration Ondansetron HCl 4 mg 03/05/19 22:20 Zofran IV Q8H PRN Nausea And Vomiting Trazodone HCl 50 mg 03/06/19 10:00 03/06/19 22:26 Desyrel PO 50 mg QDAY PRN Administration Pain, Moderate (4-6)
[2019-03-11 13:43] VITALS: BP 125/69
--- NOTE | 2019-03-11 13:59 | Discharge Summary ---
Providers - Providers Date of Admission: 03/05/19 22:07 Date of discharge: 03/11/19 Attending physician: ANA BOATENG 03/06/19 06:00 Physical Therapy Evaluation and Treat [CONS] Routine Comment: Reason For Exam: CVA Speech Therapy Evaluation and Treat [CONS] Routine Reason For Exam: CVA WITH SPEECH IMPAIRMENT 03/06/19 10:07 Occupational Therapy Evaluate and Treat [CONS] Routine Comment: Reason For Exam: CVA 03/06/19 13:04 Consult to Physician [CONS] Routine Comment: Consulting Provider: JEFFREY DONNELLY Physician Instructions: Reason For Exam: Stroke 03/06/19 14:16 Consult to Physician [CONS] Routine Comment: Consulting Provider: IVETH BARNETT Physician Instructions: Reason For Exam: DERICK 2 mutation Hospitalization Condition: Fair Hospital course: Patient is 53 yo with recent stroke few months ago, hypertension, hyperlipidemia, DERICK 2 mutation, thrombocytosis. He had gone to Rehab then went home few weeks ago. he presented from home with right sided weakness and right facial droop. He was seen and evaluated in Ed. CT head suggested ischemic stroke, but he was not a candidate for tPA. He was given Aspirin and admitted. Neurology and Hematology were consulted and he was evaluated. MRI confirms acute ischemic stroke on left fromntal white matter. aspirin was continued. He had thrombocytosis and was put on Hydroxyurea by Manager Sterile. He was evaluated by PT and acute rehab recommended. Arrangements were made and he was discharged to acute rehab at [facility] on 03/11/19. total time spent on discharge,32 mins Disposition: [id number] INPT REHAB FACILITY - Discharge Diagnoses (1) Acute ischemic stroke Status: Acute (2) Myeloproliferative disease Status: Acute (3) Hypertension Status: Acute (4) DERICK-2 gene mutation Status: Acute Core Measure Documentation - Palliative Care Palliative Care/ Comfort Measures: Not Applicable - Core Measures Any of the following diagnoses?: stroke - Stroke Discharge Requirements Statin for LDL = or >70 mg/dl on DC: Yes Anticoag for atrial fib/atrial flutter: Not Applicable Antithrombotic for ischemic stroke: Yes Exam - Physical Exam Narrative exam: en: Not in acute distress, lying in bed HEENT: Normocephalic, atraumatic Neck: supple, no JVD Heart: S1 and S2 reg, no murmurs, rubs or gallop Lungs: Clear, no crackles Abd: soft, non tender, non distended, normal BS,PEG tube Ext: No edema, no clubbing, no cyanosis, Neuro: Awake, dysarthria, right sided weakness - Constitutional Vitals: Temp Pulse Resp BP Pulse Ox 97 F L 62 17 125/69 96 03/11/19 13:05 03/11/19 13:05 03/11/19 13:05 03/11/19 13:05 03/11/19 13:05 Plan Activity: advance as tolerated Diet: low fat, low cholesterol, low salt Additional Instructions: 1. Follow up with Manager Sterile, Dr. Frankel in 1 week. Follow up with: [facility] [Other] - 3-5 Days
== END 2019-03-11 16:23 | DRG 65 ==
LOC: ED 17:28 → 4A 22:07
PROVIDERS: ADMIT Internal Medicine; ATTEND Internal Medicine
DX: I63.9 Cerebral infarction, unspecified (principal); D47.1 Chronic myeloproliferative disease; G81.91 Hemiplegia, unspecified affecting right dominant side; I10 Essential (primary) hypertension; F17.210 Nicotine dependence, cigarettes, uncomplicated; J44.9 Chronic obstructive pulmonary disease, unspecified; R13.10 Dysphagia, unspecified; R29.707 NIHSS score 7; Z90.5 Acquired absence of kidney; Z72.89 Other problems related to lifestyle; I25.2 Old myocardial infarction; Z79.899 Other long term (current) drug therapy; Z93.1 Gastrostomy status; Z71.6 Tobacco abuse counseling
CPT/HCPCS: 36415; 70450; 70551; 80048; 80061; 82550; 82553; 82962; 84484; 85025; 85027; 85610; 85670; 85730; 87116; 93005; 93010; 93306; 93880; 99406; G0378; A9270-GY; J1650; J7030

== ENCOUNTER 2019-07-28 23:50 | Inpatient (IN) | payer MEDICAID, OTHER ==
[2019-07-29] MEDS ORDERED: KEPPRA 1,000 MG/NS 0.75% 100ML 1,000 MG/100 ML BAG IV ONE (00:43)
[2019-07-29] MEDS ORDERED: ATIVAN IV ONE (00:43)
--- NOTE | 2019-07-29 00:54 | Cat Scan Report ---
CT HEAD WITHOUT CONTRAST INDICATION: neuro deficits <6hrs or sx present upon awakening TECHNIQUE: Axial slices were obtained through the head. Coronal and sagittal reformatted images were obtained. COMPARISON: CT dated 03/05/2019 FINDINGS: There is no intracranial hemorrhage or extra-axial fluid collection. Ventricles, basilar cisterns, an d sulci appear within normal limits for age. There is no mass lesion or midline shift. No acute annabella torial infarct is identified. Chronic 7 thalamic and pontine infarcts appear unchanged. There is micr oangiopathic change which is stable. Bone windows demonstrate no acute osseous abnormality. There is opacification of left mastoid air tomas ls which appears unchanged. TECHNIQUE: All CT scans at this facility use dose modulation, iterative reconstruction, automated ex posure control, weight based dosing, when appropriate, to reduce radiation dose to as low as reasonab ly achievable. IMPRESSION: 1. No acute intracranial abnormality. Signer Name: Jim Arguello MD Signed: 07/29/2019 12:50 AM Workstation Name: [id number]
[2019-07-29 00:58] LABS: Hematocrit 31.9 % (35.5-45.6); Hemoglobin 10.9 gm/dl (11.8-15.2); Mean Corpuscular HGB Conc 34 % (32-34); Mean Corpuscular Volume 105 fl (84-94); Platelet Count 256 K/mm3 (140-440); Red Blood Count 3.04 M/mm3 (3.65-5.03)
[2019-07-29 00:59] LABS: Red Cell Distribution Width 24.9 % (13.2-15.2)
[2019-07-29] MEDS ORDERED: TYLENOL PR ONE ×3 (01:00→04:29)
--- NOTE | 2019-07-29 01:13 | Emergency Department Report ---
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 Family states approx 1.5 hrs prior to arrival, pt became less responsive and seemed to be having trouble breathing. When EMS arrived, they state pt's teeth were clenched down and he had mucous coming out of his nose and mouth. EMS states pt was hypertensive w/ systolic BP in the 200s, tachycardic, and febrile. Albuterol was given for wheezing. Pt also had a leftward gaze deviation. Family deny any history of seizures in the past. Pt had no complaints earlier today, he watched football with his son. On exam, pt is nonverbal. Son is at bedside. MD Complaint: altered mental status -: hour(s) (1) Severity: moderate Consistency of Symptoms: constant Associated Symptoms: shortness of breath - Related Data Home Medications Medication Instructions Recorded Confirmed Last Taken Metoprolol Tartrate 50 mg PO BID 03/05/19 03/05/19 Unknown QUEtiapine 50 mg PO DAILY 03/05/19 03/05/19 Unknown Previous Rx's Medication Instructions Recorded Last Taken Type Aspirin 325 mg PO QDAY tablet 03/11/19 Unknown Rx AtorvaSTATin [Lipitor] 80 mg PO QHS tablet 03/11/19 Unknown Rx Hydroxyurea [Hydrea] 500 mg PO QDAY capsule 03/11/19 Unknown Rx Lisinopril [Zestril TAB] 20 mg PO QDAY tablet 03/11/19 Unknown Rx traZODone [Desyrel] 50 mg PO QDAY PRN tablet 03/11/19 Unknown Rx Allergies Allergy/AdvReac Type Severity Reaction Status Date / Time No Known Allergies Allergy Unverified 07/17/14 19:25 ED Review of Systems ROS: Stated complaint: AMS Other details as noted in HPI Comment: Unobtainable due to pts medical conditions ED Past Medical Hx - Past Medical History Previous Medical History?: Yes Hx Hypertension: Yes Hx CVA: Yes (Nov 14 2018) Hx Congestive Heart Failure: No Hx Diabetes: No Hx Renal Disease: Yes Hx Asthma: No Hx COPD: Yes Additional medical history: Jak2 - Surgical History Past Surgical History?: Yes Additional Surgical History: L kidney removed - Social History Smoking Status: Unknown if ever smoked Substance Use Type: Prescribed - Medications Home Medications: Home Medications Medication Instructions Recorded Confirmed Last Taken Type Metoprolol Tartrate 50 mg PO BID 03/05/19 03/05/19 Unknown History QUEtiapine 50 mg PO DAILY 03/05/19 03/05/19 Unknown History Aspirin 325 mg PO QDAY tablet 03/11/19 Unknown Rx AtorvaSTATin [Lipitor] 80 mg PO QHS tablet 03/11/19 Unknown Rx Hydroxyurea [Hydrea] 500 mg PO QDAY capsule 03/11/19 Unknown Rx Lisinopril [Zestril TAB] 20 mg PO QDAY tablet 03/11/19 Unknown Rx traZODone [Desyrel] 50 mg PO QDAY PRN tablet 03/11/19 Unknown Rx ED Physical Exam - General Limitations: Altered Mental Status, Physical Limitation General appearance: alert - Head Head exam: Present: atraumatic, normocephalic - Eye Eye exam: Present: other (leftward gaze) - ENT ENT exam: Present: mucous membranes moist - Neck Neck exam: Present: normal inspection - Respiratory Respiratory exam: Present: normal lung sounds bilaterally. Absent: respiratory distress - Cardiovascular Cardiovascular Exam: Present: normal rhythm, tachycardia - GI/Abdominal GI/Abdominal exam: Present: soft, other (PEG tube in place). Absent: distended - Extremities Exam Extremities exam: Present: normal inspection - Skin Skin exam: Present: warm, dry, intact, normal color ED Course Vital Signs 07/29/19 07/29/19 07/29/19 01:03 01:16 01:46 Temperature 104.8 F H Pulse Rate 131 H Respiratory 28 H Rate Blood Pressure 131/66 Blood Pressure 143/81 [Left] O2 Sat by Pulse 96 94 94 Oximetry 07/29/19 07/29/19 07/29/19 02:00 02:15 02:30 Temperature Pulse Rate Respiratory Rate Blood Pressure 131/66 154/81 Blood Pressure [Left] O2 Sat by Pulse 93 93 94 Oximetry 07/29/19 07/29/19 07/29/19 02:45 03:00 03:15 Temperature Pulse Rate Respiratory 29 H 28 H Rate Blood Pressure 154/81 143/74 143/74 Blood Pressure [Left] O2 Sat by Pulse 93 93 92 Oximetry 07/29/19 07/29/19 07/29/19 03:30 04:00 05:00 Temperature 104.5 F H Pulse Rate 127 H 126 H Respiratory 29 H 25 H 23 Rate Blood Pressure 140/77 144/83 157/124 Blood Pressure [Left] O2 Sat by Pulse 94 97 Oximetry 07/29/19 06:00 Temperature Pulse Rate 114 H Respiratory 20 Rate Blood Pressure 129/86 Blood Pressure [Left] O2 Sat by Pulse 100 Oximetry - Lab Data Result diagrams: 07/29/19 00:42 07/29/19 04:06 Lab Results 07/29/19 07/29/19 07/29/19 Range/Units 00:42 00:42 00:42 WBC 2.0 L (4.5-11.0) K/mm3 RBC 3.04 L (3.65-5.03) M/mm3 Hgb 10.9 L (11.8-15.2) gm/dl Hct 31.9 L (35.5-45.6) % MCV 105 H (84-94) fl MCH 36 H (28-32) pg MCHC 34 (32-34) % RDW 24.9 H (13.2-15.2) % Plt Count 256 (140-440) K/mm3 Add Manual Diff Complete Total Counted 100 Seg Neuts % (Manual) 82.0 H (40.0-70.0) % Band Neutrophils % 0 % Lymphocytes % (Manual) 16.0 (13.4-35.0) % Reactive Lymphs % (Man) 0 % Monocytes % (Manual) 1.0 (0.0-7.3) % Eosinophils % (Manual) 0 (0.0-4.3) % Basophils % (Manual) 1.0 (0.0-1.8) % Metamyelocytes % 0 % Myelocytes % 0 % Promyelocytes % 0 % Blast Cells % 0 % Nucleated RBC % Not Reportable Seg Neutrophils # Man 1.6 L (1.8-7.7) K/mm3 Band Neutrophils # 0.0 K/mm3 Lymphocytes # (Manual) 0.3 L (1.2-5.4) K/mm3 Abs React Lymphs (Man) 0.0 K/mm3 Monocytes # (Manual) 0.0 (0.0-0.8) K/mm3 Eosinophils # (Manual) 0.0 (0.0-0.4) K/mm3 Basophils # (Manual) 0.0 (0.0-0.1) K/mm3 Metamyelocytes # 0.0 K/mm3 Myelocytes # 0.0 K/mm3 Promyelocytes # 0.0 K/mm3 Blast Cells # 0.0 K/mm3 WBC Morphology Not Reportable Hypersegmented Neuts Not Reportable Hyposegmented Neuts Not Reportable Hypogranular Neuts Not Reportable Smudge Cells Not Reportable Toxic Granulation Not Reportable Toxic Vacuolation Not Reportable Dohle Bodies Not Reportable Pelger-Huet Anomaly Not Reportable Jorge A Rods Not Reportable Platelet Estimate Not Reportable Clumped Platelets Not Reportable Plt Clumps, EDTA Not Reportable Large Platelets Not Reportable Giant Platelets Not Reportable Platelet Satelliting Not Reportable Plt Morphology Comment Not Reportable RBC Morphology Not Reportable Dimorphic RBCs Not Reportable Polychromasia Not Reportable Hypochromasia Not Reportable Poikilocytosis Not Reportable Anisocytosis 2+ Microcytosis Not Reportable Macrocytosis Not Reportable Spherocytes Not Reportable Pappenheimer Bodies Not Reportable Sickle Cells Not Reportable Target Cells Not Reportable Tear Drop Cells Not Reportable Ovalocytes Not Reportable Helmet Cells Not Reportable Antunez-Lynd Bodies Not Reportable [place] Rings Not Reportable [place] Cells Not Reportable Bite Cells Not Reportable Crenated Cell Not Reportable Elliptocytes Not Reportable Acanthocytes (Spur) Not Reportable Rouleaux Not Reportable Hemoglobin C Crystals Not Reportable Schistocytes Not Reportable Malaria parasites Not Reportable Marco Bodies Not Reportable Hem Pathologist Commnt No PT 13.8 (12.2-14.9) Sec. INR 1.09 (0.87-1.13) APTT 26.5 (24.2-36.6) Sec. Thrombin Time 17.2 (15.1-19.6) Sec. D-Dimer (0-234) ng/mlDDU Sodium TNR Potassium TNR Chloride TNR Carbon Dioxide TNR Anion Gap TNR BUN TNR Creatinine TNR Estimated GFR TNR BUN/Creatinine Ratio TNR Glucose TNR POC Glucose (70-105) Lactic Acid (0.7-2.0) mmol/L Calcium TNR Troponin T TNR NT-Pro-B Natriuret Pep (0-900) pg/mL Triglycerides TNR Cholesterol TNR LDL Cholesterol Direct TNR HDL Cholesterol TNR Cholesterol/HDL Ratio TNR Urine Color (Yellow) Urine Turbidity (Clear) Urine pH (5.0-7.0) Ur Specific [place] (1.003-1.030) Urine Protein (Negative) mg/dL Urine Glucose (UA) (Negative) mg/dL Urine Ketones (Negative) mg/dL Urine Blood (Negative) Urine Nitrite (Negative) Urine Bilirubin (Negative) Urine Urobilinogen (<2.0) mg/dL Ur Leukocyte Esterase (Negative) Urine WBC (Auto) (0.0-6.0) /HPF Urine RBC (Auto) (0.0-6.0) /HPF U Epithel Cells (Auto) (0-13.0) /HPF Urine Bacteria (Auto) (Negative) /HPF Urine Mucus /HPF 07/29/19 07/29/19 07/29/19 Range/Units 00:42 00:48 01:06 WBC (4.5-11.0) K/mm3 RBC (3.65-5.03) M/mm3 Hgb (11.8-15.2) gm/dl Hct (35.5-45.6) % MCV (84-94) fl MCH (28-32) pg MCHC (32-34) % RDW (13.2-15.2) % Plt Count (140-440) K/mm3 Add Manual Diff Total Counted Seg Neuts % (Manual) (40.0-70.0) % Band Neutrophils % % Lymphocytes % (Manual) (13.4-35.0) % Reactive Lymphs % (Man) % Monocytes % (Manual) (0.0-7.3) % Eosinophils % (Manual) (0.0-4.3) % Basophils % (Manual) (0.0-1.8) % Metamyelocytes % % Myelocytes % % Promyelocytes % % Blast Cells % % Nucleated RBC % Seg Neutrophils # Man (1.8-7.7) K/mm3 Band Neutrophils # K/mm3 Lymphocytes # (Manual) (1.2-5.4) K/mm3 Abs React Lymphs (Man) K/mm3 Monocytes # (Manual) (0.0-0.8) K/mm3 Eosinophils # (Manual) (0.0-0.4) K/mm3 Basophils # (Manual) (0.0-0.1) K/mm3 Metamyelocytes # K/mm3 Myelocytes # K/mm3 Promyelocytes # K/mm3 Blast Cells # K/mm3 WBC Morphology Hypersegmented Neuts Hyposegmented Neuts Hypogranular Neuts Smudge Cells Toxic Granulation Toxic Vacuolation Dohle Bodies Pelger-Huet Anomaly Jorge A Rods Platelet Estimate Clumped Platelets Plt Clumps, EDTA Large Platelets Giant Platelets Platelet Satelliting Plt Morphology Comment RBC Morphology Dimorphic RBCs Polychromasia Hypochromasia Poikilocytosis Anisocytosis Microcytosis Macrocytosis Spherocytes Pappenheimer Bodies Sickle Cells Target Cells Tear Drop Cells Ovalocytes Helmet Cells Antunez-Lynd Bodies [place] Rings [place] Cells Bite Cells Crenated Cell Elliptocytes Acanthocytes (Spur) Rouleaux Hemoglobin C Crystals Schistocytes Malaria parasites Marco Bodies Hem Pathologist Commnt PT (12.2-14.9) Sec. INR (0.87-1.13) APTT (24.2-36.6) Sec. Thrombin Time (15.1-19.6) Sec. D-Dimer 1354.97 H (0-234) ng/mlDDU Sodium Potassium Chloride Carbon Dioxide Anion Gap BUN Creatinine Estimated GFR BUN/Creatinine Ratio Glucose POC Glucose 83 (70-105) Lactic Acid 2.90 H* (0.7-2.0) mmol/L Calcium Troponin T NT-Pro-B Natriuret Pep (0-900) pg/mL Triglycerides Cholesterol LDL Cholesterol Direct HDL Cholesterol Cholesterol/HDL Ratio Urine Color (Yellow) Urine Turbidity (Clear) Urine pH (5.0-7.0) Ur Specific [place] (1.003-1.030) Urine Protein (Negative) mg/dL Urine Glucose (UA) (Negative) mg/dL Urine Ketones (Negative) mg/dL Urine Blood (Negative) Urine Nitrite (Negative) Urine Bilirubin (Negative) Urine Urobilinogen (<2.0) mg/dL Ur Leukocyte Esterase (Negative) Urine WBC (Auto) (0.0-6.0) /HPF Urine RBC (Auto) (0.0-6.0) /HPF U Epithel Cells (Auto) (0-13.0) /HPF Urine Bacteria (Auto) (Negative) /HPF Urine Mucus /HPF 07/29/19 07/29/19 07/29/19 Range/Units 01:50 02:03 04:06 WBC (4.5-11.0) K/mm3 RBC (3.65-5.03) M/mm3 Hgb (11.8-15.2) gm/dl Hct (35.5-45.6) % MCV (84-94) fl MCH (28-32) pg MCHC (32-34) % RDW (13.2-15.2) % Plt Count (140-440) K/mm3 Add Manual Diff Total Counted Seg Neuts % (Manual) (40.0-70.0) % Band Neutrophils % % Lymphocytes % (Manual) (13.4-35.0) % Reactive Lymphs % (Man) % Monocytes % (Manual) (0.0-7.3) % Eosinophils % (Manual) (0.0-4.3) % Basophils % (Manual) (0.0-1.8) % Metamyelocytes % % Myelocytes % % Promyelocytes % % Blast Cells % % Nucleated RBC % Seg Neutrophils # Man (1.8-7.7) K/mm3 Band Neutrophils # K/mm3 Lymphocytes # (Manual) (1.2-5.4) K/mm3 Abs React Lymphs (Man) K/mm3 Monocytes # (Manual) (0.0-0.8) K/mm3 Eosinophils # (Manual) (0.0-0.4) K/mm3 Basophils # (Manual) (0.0-0.1) K/mm3 Metamyelocytes # K/mm3 Myelocytes # K/mm3 Promyelocytes # K/mm3 Blast Cells # K/mm3 WBC Morphology Hypersegmented Neuts Hyposegmented Neuts Hypogranular Neuts Smudge Cells Toxic Granulation Toxic Vacuolation Dohle Bodies Pelger-Huet Anomaly Jorge A Rods Platelet Estimate Clumped Platelets Plt Clumps, EDTA Large Platelets Giant Platelets Platelet Satelliting Plt Morphology Comment RBC Morphology Dimorphic RBCs Polychromasia Hypochromasia Poikilocytosis Anisocytosis Microcytosis Macrocytosis Spherocytes Pappenheimer Bodies Sickle Cells Target Cells Tear Drop Cells Ovalocytes Helmet Cells Antunez-Lynd Bodies [place] Rings [place] Cells Bite Cells Crenated Cell Elliptocytes Acanthocytes (Spur) Rouleaux Hemoglobin C Crystals Schistocytes Malaria parasites Marco Bodies Hem Pathologist Commnt PT (12.2-14.9) Sec. INR (0.87-1.13) APTT (24.2-36.6) Sec. Thrombin Time (15.1-19.6) Sec. D-Dimer (0-234) ng/mlDDU Sodium Potassium Chloride Carbon Dioxide Anion Gap BUN Creatinine Estimated GFR BUN/Creatinine Ratio Glucose POC Glucose (70-105) Lactic Acid 3.90 H* (0.7-2.0) mmol/L Calcium Troponin T NT-Pro-B Natriuret Pep 1767 H (0-900) pg/mL Triglycerides Cholesterol LDL Cholesterol Direct HDL Cholesterol Cholesterol/HDL Ratio Urine Color Yellow (Yellow) Urine Turbidity Slightly-cloudy (Clear) Urine pH 5.0 (5.0-7.0) Ur Specific [place] 1.017 (1.003-1.030) Urine Protein 100 mg/dl (Negative) mg/dL Urine Glucose (UA) Neg (Negative) mg/dL Urine Ketones Neg (Negative) mg/dL Urine Blood Mod (Negative) Urine Nitrite Pos (Negative) Urine Bilirubin Neg (Negative) Urine Urobilinogen 2.0 (<2.0) mg/dL Ur Leukocyte Esterase Tr (Negative) Urine WBC (Auto) 10.0 H (0.0-6.0) /HPF Urine RBC (Auto) 41.0 (0.0-6.0) /HPF U Epithel Cells (Auto) 1.0 (0-13.0) /HPF Urine Bacteria (Auto) 2+ (Negative) /HPF Urine Mucus Few /HPF 07/29/19 07/29/19 07/29/19 Range/Units 04:06 04:06 04:46 WBC (4.5-11.0) K/mm3 RBC (3.65-5.03) M/mm3 Hgb (11.8-15.2) gm/dl Hct (35.5-45.6) % MCV (84-94) fl MCH (28-32) pg MCHC (32-34) % RDW (13.2-15.2) % Plt Count (140-440) K/mm3 Add Manual Diff Total Counted Seg Neuts % (Manual) (40.0-70.0) % Band Neutrophils % % Lymphocytes % (Manual) (13.4-35.0) % Reactive Lymphs % (Man) % Monocytes % (Manual) (0.0-7.3) % Eosinophils % (Manual) (0.0-4.3) % Basophils % (Manual) (0.0-1.8) % Metamyelocytes % % Myelocytes % % Promyelocytes % % Blast Cells % % Nucleated RBC % Seg Neutrophils # Man (1.8-7.7) K/mm3 Band Neutrophils # K/mm3 Lymphocytes # (Manual) (1.2-5.4) K/mm3 Abs React Lymphs (Man) K/mm3 Monocytes # (Manual) (0.0-0.8) K/mm3 Eosinophils # (Manual) (0.0-0.4) K/mm3 Basophils # (Manual) (0.0-0.1) K/mm3 Metamyelocytes # K/mm3 Myelocytes # K/mm3 Promyelocytes # K/mm3 Blast Cells # K/mm3 WBC Morphology Hypersegmented Neuts Hyposegmented Neuts Hypogranular Neuts Smudge Cells Toxic Granulation Toxic Vacuolation Dohle Bodies Pelger-Huet Anomaly Jorge A Rods Platelet Estimate Clumped Platelets Plt Clumps, EDTA Large Platelets Giant Platelets Platelet Satelliting Plt Morphology Comment RBC Morphology Dimorphic RBCs Polychromasia Hypochromasia Poikilocytosis Anisocytosis Microcytosis Macrocytosis Spherocytes Pappenheimer Bodies Sickle Cells Target Cells Tear Drop Cells Ovalocytes Helmet Cells Antunez-Lynd Bodies [place] Rings Feli Cells Bite Cells Crenated Cell Elliptocytes Acanthocytes (Spur) Rouleaux Hemoglobin C Crystals Schistocytes Malaria parasites Marco Bodies Hem Pathologist Commnt PT (12.2-14.9) Sec. INR (0.87-1.13) APTT (24.2-36.6) Sec. Thrombin Time (15.1-19.6) Sec. D-Dimer (0-234) ng/mlDDU Sodium 143 Potassium 3.8 Chloride 105.2 Carbon Dioxide 23 Anion Gap 19 BUN 29 H Creatinine 1.2 Estimated GFR > 60 BUN/Creatinine Ratio 24 Glucose 90 POC Glucose (70-105) Lactic Acid 4.00 H* (0.7-2.0) mmol/L Calcium 8.4 Troponin T 0.170 H* NT-Pro-B Natriuret Pep (0-900) pg/mL Triglycerides Cholesterol LDL Cholesterol Direct HDL Cholesterol Cholesterol/HDL Ratio Urine Color (Yellow) Urine Turbidity (Clear) Urine pH (5.0-7.0) Ur Specific [place] (1.003-1.030) Urine Protein (Negative) mg/dL Urine Glucose (UA) (Negative) mg/dL Urine Ketones (Negative) mg/dL Urine Blood (Negative) Urine Nitrite (Negative) Urine Bilirubin (Negative) Urine Urobilinogen (<2.0) mg/dL Ur Leukocyte Esterase (Negative) Urine WBC (Auto) (0.0-6.0) /HPF Urine RBC (Auto) (0.0-6.0) /HPF U Epithel Cells (Auto) (0-13.0) /HPF Urine Bacteria (Auto) (Negative) /HPF Urine Mucus /HPF - EKG Data -: EKG Interpreted by Ca EKG shows normal: sinus rhythm, axis, intervals, QRS complexes, ST-T waves Rate: tachycardia Interpretation: no acute changes - Radiology Data Radiology results: report reviewed, image reviewed - Medical Decision Making 53 yo M w/ hx prior hemorrhagic CVA presents to ED with seizure-like activity. Pt initially nonresponsive with leftward eye gaze. Seen and evaluated by teleneurology. Not a tPA candidate, no occlusion seen on CTA Head and Neck. Neurologist recommended ativan, keppra. Afterward gaze deviation seemed to resolve. Family reports pt has minimal speech. Ptremains nonverbal, but moans when I say his name. Pt also found to be febrile, with elevated lactic acid, and WBCs of 2.0. Blood culture and urine cultures sent. Appears to have UTI with 2+ bacteria and positive nitrites in the urine. Antibiotics and IV fluid bolus given (30 cc/kg). RN reports initial rectal tylenol came out after checking temp again and pt found to still be febrile. Tylenol was placed again. Pt admitted to hospitalist for further management. - Differential Diagnosis seizure, CVA, UTI, pneumonia Critical care attestation.: If time is entered above; I have spent that time in minutes in the direct care of this critically ill patient, excluding procedure time. ED Disposition Clinical Impression: Sepsis, Seizure, UTI (urinary tract infection), Elevated troponin Disposition: [id number] OP ADMIT IP TO THIS HOSP Is pt being admited?: Yes Condition: Stable
[2019-07-29] MEDS ORDERED: NACL 0.9% 1000 ML 1,000 ML IV ONE (01:17)
[2019-07-29 01:18] LABS: INR 1.09 (0.87-1.13)
[2019-07-29 01:19] LABS: Partial Thromboplastin Time 26.5 Sec. (24.2-36.6)
[2019-07-29 01:20] LABS: Thrombin Time 17.2 Sec. (15.1-19.6)
[2019-07-29 01:26] LABS: BUN/Creatinine Ratio TNR; Blood Urea Nitrogen TNR mg/dL (9-20); Calcium TNR mg/dL (8.4-10.2)
[2019-07-29 01:27] LABS: HDL Cholesterol TNR mg/dL (40-59); Hemolysis Index TNR; LDL Cholesterol,Direct TNR mg/dL (50-130)
[2019-07-29 01:28] LABS: Chol/HDL Ratio TNR %
--- NOTE | 2019-07-29 01:29 | XRay Report ---
CHEST 1 VIEW INDICATION / CLINICAL INFORMATION: sob. COMPARISON: None available. FINDINGS: SUPPORT DEVICES: None. HEART / MEDIASTINUM: No significant abnormality. LUNGS / PLEURA: There is mild increase in interstitial markings bilaterally suggesting mild edema.. No pneumothorax. ADDITIONAL FINDINGS: No significant additional findings. IMPRESSION: 1. There is mild increase in interstitial markings bilaterally likely representing mild edema.. Signer Name: Jim Arguello MD Signed: 07/29/2019 1:25 AM Workstation Name: [id number]
[2019-07-29 01:55] LABS: Eosinophils % (Manual) 0 % (0.0-4.3)
[2019-07-29 01:56] LABS: Anisocytosis 2+; Total Cells Counted 100
[2019-07-29] MEDS ORDERED: CEFEPIME/NS 1 GM/100 ML 1 GM/100 ML BAG IV ONE (02:03)
[2019-07-29] MEDS ORDERED: NACL 0.9% 1000 ML IV ONE (02:09)
--- NOTE | 2019-07-29 02:12 | Emergency Department Report ---
Cassi Doc - Documentation Documentation: [facility] Date of Service: 07/29/2019 00:17:31 Impression: Encephalopathy - Unclear etiology RO Acute Ischemic Stroke, r/o new seizure Comments: Unclear cause of encephalopathy at this point but clinical presenation is most c/w seizure. Given the fever and presumed infection, suspect threshold was lowered. Prior large stroke puts him at risk for seizures. Ischemic Stroke also possible but his recent ICH makes Alteplase contraindicated. CTA ordered to r/o LVO Mechanism of Stroke: Not Clear Metrics: Last Known Well: 07/28/2019 22:30:00 [employer] Notification Time: 07/29/2019 00:16:43 Stamp Time: 07/29/2019 00:17:31 Time First Login Attempt: 07/29/2019 00:23:58 Video Start Time: 07/29/2019 00:23:58 Symptoms: stroke alert Patient is not a candidate for tPA. Patient was not deemed candidate for tPA thrombolytics because of Current or Previous ICH. Video End Time: 07/29/2019 01:16:39 CT head showed no acute hemorrhage or acute core infarct. CT head was reviewed. Advanced imaging CTA head and neck obtained. To my eye, no LVO noted. ER physician notified of the decision on thrombolytics management. Our recommendations are outlined below. Recommendations: Antiplatelet Therapy Recommended Continue ASA as prior Add Keppra 1 G now and Ativan 2mg now Infectious w/u as per ED/ IM Therapies: Physical Therapy, Occupational Therapy, Speech Therapy Assessment When Applicable Disposition: Sign Out Sign Out: Discussed with Emergency Department Provider History of Present Illness: Patient is a 53 years old Male. 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 He has baseline right HP and aphasia with PEG and indwelling higgins. He speaks a few words but not complete sentences. He p/w AMS while in bed this evening. LKW 1030pm last night. His noted that he appeared to be clenched down and tremorring all over. He would not speak or follow any commands. She also noted mucus coming from nose and mouth. EMS called and noted gaze deviation as well. Here in ED, he is improved but not speaking with intermittent left gaze preference. CT head showed no acute hemorrhage or acute core infarct. CT head was reviewed. Examination: 1A: Level of Consciousness - Arouses to minor stimulation + 1 1B: Ask Month and Age - Could Not Answer Either Question Correctly + 2 1C: Blink Eyes & Squeeze Hands - Performs 0 Tasks + 2 2: Test Horizontal Extraocular Movements - Partial Gaze Palsy: Can Be Overcome + 1 3: Test Visual Jones - No Visual Loss + 0 4: Test Facial Palsy (Use Grimace if Obtunded) - Minor paralysis (flat nasolabial fold, smile asymetry) + 1 5A: Test Left Arm Motor Drift - No Drift for 10 Seconds + 0 5B: Test Right Arm Motor Drift - Some Effort Against [place] + 2 6A: Test Left Leg Motor Drift - Some Effort Against [place] + 2 6B: Test Right Leg Motor Drift - No Effort Against [place] + 3 7: Test Limb Ataxia (FNF/Heel-Welsh) - No Ataxia + 0 8: Test Sensation - Normal; No sensory loss + 0 9: Test Language/Aphasia - Mute/Global Aphasia: No Usable Speech/Auditory Comprehension + 3 10: Test Dysarthria - Mute/Anarthric + 2 11: Test Extinction/Inattention - Visual/tactile/auditory/spatial/personal inattention + 1 NIHSS Score: 20 Patient was informed the Neurology Consult would happen via TeleHealth consult by way of interactive audio and video telecommunications and consented to receiving care in this manner. Due to the immediate potential for life-threatening deterioration due to underlying acute neurologic illness, I spent 35 minutes providing critical care. This time includes time for face to face visit via telemedicine, review of m edical records, imaging studies and discussion of findings with providers, the patient and/or family. Dr Lashonda Slaughter [employer]
[2019-07-29 02:29] LABS: Bacteria,Urine 2+ /HPF (Negative); Bilirubin,Urine NEG (Negative); Blood,Urine MOD (Negative); Color,Urine Yellow (Yellow); Mucus,Urine FEW /HPF
--- NOTE | 2019-07-29 02:33 | Cat Scan Report ---
CTA neck with and without contrast CLINICAL HISTORY: Altered mental status, stroke alert. Technique: Multiple contiguous postcontrast axial CT images of the neck were obtained at 0.63 mm inte rvals. 3 plane MIP reconstructions were produced. Precontrast localizing images were also performed. All CT scans at this location are performed using the CT dose reduction for ALARA by means of automat ed exposure control. FINDINGS: No previous CTA exams available for comparison. There is mild calcified plaque involving th e proximal left ICA and carotid bifurcation without significant stenosis by NASCET criteria. There is minimal plaque involving the right carotid bifurcation without stenosis. The motion and beam hardening degrade the image quality at the origins of the vertebral arteries. How ever, there is no significant narrowing involving the vertebral arteries by NASCET criteria. There ar e small foci of calcification bilaterally near the origins again without significant narrowing. The a [facility] vessels are grossly unremarkable. IMPRESSION: There is mild calcified plaque involving the proximal left ICA. However, there no CTA evidence of sig nificant stenosis involving cervical carotid or vertebral arteries by NASCET criteria. Signer Name: Pastor Joe MD Signed: 07/29/2019 2:29 AM Workstation Name: [id number]
--- NOTE | 2019-07-29 02:40 | Cat Scan Report ---
CTA head with and without IV contrast. CLINICAL HISTORY: Altered mental status, stroke alert. Technique: Multiple contiguous postcontrast CT images of the head were obtained at 0.63 mm intervals. 3 plane MIP reconstructions were obtained. Precontrast localizing images were also performed. CT scan s at this location are performed using the CT dose reduction for Sr.Pago by means of automated exposure control. FINDINGS: No previous exams are available for comparison. There is no significant stenosis involving the distal internal carotid arteries or vertebrobasilar system. 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 Otherwise, the proximal cerebral arteries and secondary segments tania ear to demonstrate appropriate caliber without significant stenosis at. There is no definitive CTA ev idence of intracranial aneurysm. There is developmental hypoplasia of the right transverse and sigmoid sinuses. There is scattered opa cification within the left mastoid air cells. 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 Otherwise, the CTA of the head appears unr emarkable. There is scattered opacification within the left mastoid air cells. Signer Name: Pastor Joe MD Signed: 07/29/2019 2:36 AM Workstation Name: [id number]
[2019-07-29] MEDS ORDERED: CEFEPIME/NS 2 GM/100 ML 2 GM/100 ML BAG IV ONE (02:52)
[2019-07-29 04:30] LABS: BUN/Creatinine Ratio 24; Blood Urea Nitrogen 29 mg/dL (9-20); Calcium 8.4 mg/dL (8.4-10.2); Hemolysis Index 5
[2019-07-29] MEDS ORDERED: MILK OF MAGNESIA PO PRN (05:29)
[2019-07-29] MEDS ORDERED: TYLENOL PO PRN (05:29)
[2019-07-29] MEDS ORDERED: DULCOLAX PR PRN (05:29)
[2019-07-29] MEDS ORDERED: ZOFRAN IV PRN (05:29)
[2019-07-29] MEDS ORDERED: MORPHINE IV PRN (05:29)
[2019-07-29] MEDS ORDERED: ATIVAN IV PRN (05:36)
--- NOTE | 2019-07-29 06:01 | History and Physical Report ---
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 He is unable to provide history history is provided by son (who is present at bedside) and via telephone and medical records. According to patient's family patient was transferred to [facility] and 2230. Approximately 1.5hours later he was found to be less responsive with difficulty breathing. EMS was called. Upon EMS' arrival to home he was found to be hypertensive with SBP in 200's, febrile, and tachycardic with audible wheezing. He was given albuterol nebulizer treatment. Past History Past Medical History: COPD, hypertension, hyperlipidemia, stroke (x2 (11/2018 & 02/2019), hx hemorrhage CVA and ischemic CVA), other (JAK2 positive, thrombocytosis) Past Surgical History: Other (removal of left kidney) Social history: , lives with family Family history: no significant family history Medications and Allergies Allergies Allergy/AdvReac Type Severity Reaction Status Date / Time No Known Allergies Allergy Unverified 07/17/14 19:25 Home Medications Medication Instructions Recorded Confirmed Last Taken Type Metoprolol Tartrate 50 mg PO BID 03/05/19 07/29/19 07/28/19 History QUEtiapine 50 mg PO DAILY 03/05/19 07/29/19 Unknown History Aspirin 325 mg PO QDAY tablet 03/11/19 07/29/19 07/29/19 17:39 Rx AtorvaSTATin [Lipitor] 80 mg PO QHS tablet 03/11/19 07/29/19 Unknown Rx Lisinopril [Zestril TAB] 20 mg PO QDAY tablet 03/11/19 07/29/19 Unknown Rx traZODone [Desyrel] 50 mg PO QDAY PRN tablet 03/11/19 07/29/19 Unknown Rx Hydroxyurea [Hydrea] 500 mg PO TuThSa@1000 #30 capsule 08/05/19 Unknown Rx Active Meds: Active Medications Acetaminophen (Tylenol) 650 mg PO Q4H PRN PRN Reason: Pain, Mild (1-3), fever 100.5> Aspirin (Aspirin) 325 mg PO QDAY LESLIE Atorvastatin Calcium (Lipitor) 80 mg PO QHS LESLIE Bisacodyl (Dulcolax) 10 mg OK QDAY PRN PRN Reason: Constipation Hydroxyurea (Hydrea) 500 mg PO QDAY LESLIE Levetiracetam 1,000 mg/ (Dextrose) 110 mls @ 400 mls/hr IV Q12HR LESLIE Piperacillin Sod/Tazobactam Sod (Zosyn/Ns 3.375gm/50ml) 3.375 gm in 50 mls @ 100 mls/hr IV Q8HR LESLIE; Protocol Lisinopril (Zestril) 20 mg PO QDAY LESLIE Lorazepam (Ativan) 2 mg IV Q4H PRN PRN Reason: Seizures Magnesium Hydroxide (Milk Of Magnesia) 30 ml PO Q4H PRN PRN Reason: Constipation Metoprolol Tartrate (Lopressor) 50 mg PO BID LESLIE Morphine Sulfate (Morphine) 2 mg IV Q4H PRN PRN Reason: Pain, Moderate (4-6) Ondansetron HCl (Zofran) 4 mg IV Q6H PRN PRN Reason: Nausea And Vomiting Sodium Chloride (Sodium Chloride Flush Syringe 10 Ml) 10 ml IV PRN PRN PRN Reason: LINE FLUSH Review of Systems ROS unobtainable: due to mental status Exam - Physical Exam Narrative exam: Physical exam General appearance: Present: Distress, drowsy, nonverbal, well-developed, well- nourished, middle-aged - EENT Eyes: Present: PERRL, leftward gaze ENT: normal dentition, gold tooth - Neck Neck: Present: supple, normal ROM - Respiratory Respiratory effort: Non-labored Respiratory: Diminished - Cardiovascular Heart rate: 140(bpm) Rhythm: ST Heart Sounds: Present: S1 & S2. Absent: rub, click - Extremities Extremities: no ischemia, pulses intact, - Peripheral Assessment Peripheral Pulses: within normal limits - Abdominal General gastrointestinal: soft, non-tender, normal bowel sounds - Integumentary Integumentary: Present: warm, dry - Musculoskeletal Musculoskeletal: generalized weakness, right-sided residual deficits at baseline -Neurological Neurological: Unable to assess - Psychiatric Psychiatric: Unable to assess - Constitutional Vitals: Temp Pulse Resp BP Pulse Ox 104.8 F H 131 H 29 H 140/77 94 07/29/19 01:03 07/29/19 01:03 07/29/19 03:30 07/29/19 03:30 07/29/19 03:30 Results - Labs CBC & Chem 7: 07/29/19 00:42 07/29/19 04:06 Labs: Laboratory Last Values WBC 2.0 K/mm3 (4.5-11.0) L 07/29/19 00:42 RBC 3.04 M/mm3 (3.65-5.03) L 07/29/19 00:42 Hgb 10.9 gm/dl (11.8-15.2) L 07/29/19 00:42 Hct 31.9 % (35.5-45.6) L 07/29/19 00:42 MCV 105 fl (84-94) H 07/29/19 00:42 MCH 36 pg (28-32) H 07/29/19 00:42 MCHC 34 % (32-34) 07/29/19 00:42 RDW 24.9 % (13.2-15.2) H 07/29/19 00:42 Plt Count 256 K/mm3 (140-440) 07/29/19 00:42 Add Manual Diff Complete 07/29/19 00:42 Total Counted 100 07/29/19 00:42 Seg Neuts % (Manual) 82.0 % (40.0-70.0) H 07/29/19 00:42 0 % 07/29/19 00:42 16.0 % (13.4-35.0) 07/29/19 00:42 Reactive Lymphs % (Man) 0 % 07/29/19 00:42 1.0 % (0.0-7.3) 07/29/19 00:42 0 % (0.0-4.3) 07/29/19 00:42 1.0 % (0.0-1.8) 07/29/19 00:42 0 % 07/29/19 00:42 0 % 07/29/19 00:42 0 % 07/29/19 00:42 0 % 07/29/19 00:42 Nucleated RBC % Not Reportable 07/29/19 00:42 Seg Neutrophils # Man 1.6 K/mm3 (1.8-7.7) L 07/29/19 00:42 Band Neutrophils # 0.0 K/mm3 07/29/19 00:42 0.3 K/mm3 (1.2-5.4) L 07/29/19 00:42 Abs React Lymphs (Man) 0.0 K/mm3 07/29/19 00:42 0.0 K/mm3 (0.0-0.8) 07/29/19 00:42 0.0 K/mm3 (0.0-0.4) 07/29/19 00:42 0.0 K/mm3 (0.0-0.1) 07/29/19 00:42 0.0 K/mm3 07/29/19 00:42 0.0 K/mm3 07/29/19 00:42 0.0 K/mm3 07/29/19 00:42 Blast Cells # 0.0 K/mm3 07/29/19 00:42 WBC Morphology Not Reportable 07/29/19 00:42 Hypersegmented Neuts Not Reportable 07/29/19 00:42 Hyposegmented Neuts Not Reportable 07/29/19 00:42 Hypogranular Neuts Not Reportable 07/29/19 00:42 Not Reportable 07/29/19 00:42 Not Reportable 07/29/19 00:42 Not Reportable 07/29/19 00:42 Not Reportable 07/29/19 00:42 Not Reportable 07/29/19 00:42 Not Reportable 07/29/19 00:42 Not Reportable 07/29/19 00:42 Not Reportable 07/29/19 00:42 Plt Clumps, EDTA Not Reportable 07/29/19 00:42 Not Reportable 07/29/19 00:42 Not Reportable 07/29/19 00:42 Not Reportable 07/29/19 00:42 Plt Morphology Comment Not Reportable 07/29/19 00:42 RBC Morphology Not Reportable 07/29/19 00:42 Dimorphic RBCs Not Reportable 07/29/19 00:42 Not Reportable 07/29/19 00:42 Not Reportable 07/29/19 00:42 Not Reportable 07/29/19 00:42 2+ 07/29/19 00:42 Not Reportable 07/29/19 00:42 Not Reportable 07/29/19 00:42 Not Reportable 07/29/19 00:42 Not Reportable 07/29/19 00:42 Not Reportable 07/29/19 00:42 Not Reportable 07/29/19 00:42 Not Reportable 07/29/19 00:42 Not Reportable 07/29/19 00:42 Not Reportable 07/29/19 00:42 Not Reportable 07/29/19 00:42 Not Reportable 07/29/19 00:42 Not Reportable 07/29/19 00:42 Not Reportable 07/29/19 00:42 Not Reportable 07/29/19 00:42 Not Reportable 07/29/19 00:42 Acanthocytes (Spur) Not Reportable 07/29/19 00:42 Rouleaux Not Reportable 07/29/19 00:42 Not Reportable 07/29/19 00:42 Not Reportable 07/29/19 00:42 Not Reportable 07/29/19 00:42 Not Reportable 07/29/19 00:42 Hem Pathologist Commnt No 07/29/19 00:42 PT 13.8 Sec. (12.2-14.9) 07/29/19 00:42 INR 1.09 (0.87-1.13) 07/29/19 00:42 APTT 26.5 Sec. (24.2-36.6) 07/29/19 00:42 17.2 Sec. (15.1-19.6) 07/29/19 00:42 Sodium 143 mmol/L (137-145) 07/29/19 04:06 Potassium 3.8 mmol/L (3.6-5.0) 07/29/19 04:06 Chloride 105.2 mmol/L (98-107) 07/29/19 04:06 Carbon Dioxide 23 mmol/L (22-30) 07/29/19 04:06 19 mmol/L 07/29/19 04:06 BUN 29 mg/dL (9-20) H 07/29/19 04:06 1.2 mg/dL (0.8-1.5) 07/29/19 04:06 Estimated GFR > 60 ml/min 07/29/19 04:06 24 % 07/29/19 04:06 Glucose 90 mg/dL (75-100) 07/29/19 04:06 POC Glucose 83 (70-105) 07/29/19 01:06 Lactic Acid 4.00 mmol/L (0.7-2.0) H* 07/29/19 04:46 Calcium 8.4 mg/dL (8.4-10.2) 07/29/19 04:06 0.170 ng/mL (0.00-0.029) H* 07/29/19 04:06 NT-Pro-B Natriuret Pep 1767 pg/mL (0-900) H 07/29/19 02:03 Triglycerides TNR 07/29/19 00:42 Cholesterol TNR 07/29/19 00:42 TNR 07/29/19 00:42 TNR 07/29/19 00:42 TNR 07/29/19 00:42 Yellow (Yellow) 07/29/19 01:50 Slightly-cloudy (Clear) 07/29/19 01:50 5.0 (5.0-7.0) 07/29/19 01:50 Ur Specific Vancleave 1.017 (1.003-1.030) 07/29/19 01:50 100 mg/dl mg/dL (Negative) 07/29/19 01:50 Neg mg/dL (Negative) 07/29/19 01:50 Neg mg/dL (Negative) 07/29/19 01:50 Mod (Negative) 07/29/19 01:50 Pos (Negative) 07/29/19 01:50 Neg (Negative) 07/29/19 01:50 2.0 mg/dL (<2.0) 07/29/19 01:50 Ur Leukocyte Esterase Tr (Negative) 07/29/19 01:50 10.0 /HPF (0.0-6.0) H 07/29/19 01:50 41.0 /HPF (0.0-6.0) 07/29/19 01:50 U Epithel Cells (Auto) 1.0 /HPF (0-13.0) 07/29/19 01:50 2+ /HPF (Negative) 07/29/19 01:50 Few /HPF 07/29/19 01:50 - Imaging and Cardiology Imaging and Cardiology: CTA neck with and without contrast: FINDINGS: No previous CTA exams available for comparison. There is mild calcified plaque involving the proximal left ICA and carotid bifurcation without significant stenosis by NASCET criteria. There is minimal plaque involving the right carotid bifurcation without stenosis. The motion and beam hardening degrade the image quality at the origins of the vertebral arteries. However, there is no significant narrowing involving the vertebral arteries by NASCET criteria. There are small foci of calcification bilaterally near the origins again without significant narrowing. The arch vessels are grossly unremarkable. IMPRESSION: There is mild calcified plaque involving the proximal left ICA. However, there no CTA evidence of significant stenosis involving cervical carotid or vertebral arteries by NASCET criteria. CT angio Head: FINDINGS: No previous exams are available for comparison. There is no significant stenosis involving the distal internal carotid arteries or vertebrobasilar system. 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 Otherwise, the proximal cerebral arteries and secondary segments appear to demonstrate appropriate caliber without significant stenosis at. There is no definitive CTA evidence of intracranial aneurysm. There is developmental hypoplasia of the right transverse and sigmoid sinuses. There is scattered opacification within the left mastoid air cells. 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 Otherwise, the CTA of the head appears unremarkable. CXR: FINDINGS: SUPPORT DEVICES: None. HEART / MEDIASTINUM: No significant abnormality. LUNGS / PLEURA: There is mild increase in interstitial markings bilaterally suggesting mild edema.. No pneumothorax. IMPRESSION: 1. There is mild increase in interstitial markings bilaterally likely representing mild edema.. Assessment and Plan Assessment and plan: 53-year-old -[place] male who is nonverbal with history of COPD, hypertension, thrombocytosis, JAK2 positive, CVA 2 (hemorrhagic 11/2018 and isch emic 02/2019) right-sided residual deficits, and HLD who presents to [facility] ED with complaints of altered mental status and difficulty breathing. Sepsis -Tachycardic -Tmax 104.8 -Lactic acid on admission 2.9 ( trending up now 3.90) -Received IV fluid resuscitation -Blood and urine cultures pending -On IV ABX UTI -Urine WBC 10.0 -Urine culture pending -On IV Abx Pneumonia -CXR shows mild increase in interstitial markings bilaterally -Blood Cultures pending -Start on IV Abx Acute encephalopathy -Likely due to Sepsis or possibly seizure -Evaluated by Dr. Slaughter (tele-neurology) -Neuro Checks -Continue to monitor -Neurology consulted Suspicion of Seizure s/p CVA -No history of prior seizure disorder -Not a candidate for TPA; asked normal normal 07/28 @2230 -Received Keppra in the ED -On Keppra -Ativan when necessary -Initiate seizure precautions -IV Ativan when necessary -Neurology consulted Hypertension -Continue to monitor BP -Resume home antihypertensive meds to optimize BP History of CVA -Hemorrhagic CVA 11/2018 -Ischemic CVA 02/2019 -Right-sided residual deficits -PT/OT eval pending -Continue aspirin and statin therapy Elevated troponin -Troponin elevated at 0.170 -Will continue to trend Elevated d-dimer -D-dimer elevated at 1354.97 -V/Q scan pending Thrombocytosis JAK2 positive DVT PPX -SCD's -Will defer anticoagulation to hematology Advance Directives: No VTE prophylaxis?: Mechanical Contraindication Mechanical VTE Prophylaxis: Contraindicated Reason for no VTE Prophylaxis: Medical contraindication Plan of care discussed with patient/family: Yes <LEE ROJAS - Last Filed: 08/13/19 23:24> History of Present Illness Date of admission: 07/29/19 05:29 Medications and Allergies Active Meds: Active Medications Acetaminophen (Tylenol) 650 mg PO Q4H PRN PRN Reason: Pain, Mild (1-3), fever 100.5> Aspirin (Aspirin) 325 mg PO QDAY LESLIE Atorvastatin Calcium (Lipitor) 80 mg PO QHS LESLIE Bisacodyl (Dulcolax) 10 mg OK QDAY PRN PRN Reason: Constipation Hydroxyurea (Hydrea) 500 mg PO QDAY LESLIE Levetiracetam 1,000 mg/ (Dextrose) 110 mls @ 400 mls/hr IV Q12HR LESLIE Piperacillin Sod/Tazobactam Sod (Zosyn/Ns 3.375gm/50ml) 3.375 gm in 50 mls @ 100 mls/hr IV Q8HR LESLIE; Protocol Last Admin: 07/29/19 06:30 Dose: 100 mls/hr Documented by: Vancomycin HCl (Vancomycin/Ns 1 Gm/250 Ml) 1 gm in 250 mls @ 167.007 mls/hr IV ONCE ONE; Protocol Stop: 07/29/19 08:10 Lisinopril (Zestril) 20 mg PO QDAY LESLIE Lorazepam (Ativan) 1 mg IV Q4H PRN PRN Reason: Seizures Magnesium Hydroxide (Milk Of Magnesia) 30 ml PO Q4H PRN PRN Reason: Constipation Metoprolol Tartrate (Lopressor) 50 mg PO BID LESLIE Ondansetron HCl (Zofran) 4 mg IV Q6H PRN PRN Reason: Nausea And Vomiting Sodium Chloride (Sodium Chloride Flush Syringe 10 Ml) 10 ml IV PRN PRN PRN Reason: LINE FLUSH Exam - Constitutional Vitals: Temp Pulse Resp BP Pulse Ox 104.8 F H 131 H 29 H 140/77 94 07/29/19 01:03 07/29/19 01:03 07/29/19 03:30 07/29/19 03:30 07/29/19 03:30 Results - Labs CBC & Chem 7: 08/13/19 04:39 08/13/19 04:39 Labs: Laboratory Last Values WBC 2.0 K/mm3 (4.5-11.0) L 07/29/19 00:42 RBC 3.04 M/mm3 (3.65-5.03) L 07/29/19 00:42 Hgb 10.9 gm/dl (11.8-15.2) L 07/29/19 00:42 Hct 31.9 % (35.5-45.6) L 07/29/19 00:42 MCV 105 fl (84-94) H 07/29/19 00:42 MCH 36 pg (28-32) H 07/29/19 00:42 MCHC 34 % (32-34) 07/29/19 00:42 RDW 24.9 % (13.2-15.2) H 07/29/19 00:42 Plt Count 256 K/mm3 (140-440) 07/29/19 00:42 Add Manual Diff Complete 07/29/19 00:42 Total Counted 100 07/29/19 00:42 Seg Neuts % (Manual) 82.0 % (40.0-70.0) H 07/29/19 00:42 0 % 07/29/19 00:42 16.0 % (13.4-35.0) 07/29/19 00:42 Reactive Lymphs % (Man) 0 % 07/29/19 00:42 1.0 % (0.0-7.3) 07/29/19 00:42 0 % (0.0-4.3) 07/29/19 00:42 1.0 % (0.0-1.8) 07/29/19 00:42 0 % 07/29/19 00:42 0 % 07/29/19 00:42 0 % 07/29/19 00:42 0 % 07/29/19 00:42 Nucleated RBC % Not Reportable 07/29/19 00:42 Seg Neutrophils # Man 1.6 K/mm3 (1.8-7.7) L 07/29/19 00:42 Band Neutrophils # 0.0 K/mm3 07/29/19 00:42 0.3 K/mm3 (1.2-5.4) L 07/29/19 00:42 Abs React Lymphs (Man) 0.0 K/mm3 07/29/19 00:42 0.0 K/mm3 (0.0-0.8) 07/29/19 00:42 0.0 K/mm3 (0.0-0.4) 07/29/19 00:42 0.0 K/mm3 (0.0-0.1) 07/29/19 00:42 0.0 K/mm3 07/29/19 00:42 0.0 K/mm3 07/29/19 00:42 0.0 K/mm3 07/29/19 00:42 Blast Cells # 0.0 K/mm3 07/29/19 00:42 WBC Morphology Not Reportable 07/29/19 00:42 Hypersegmented Neuts Not Reportable 07/29/19 00:42 Hyposegmented Neuts Not Reportable 07/29/19 00:42 Hypogranular Neuts Not Reportable 07/29/19 00:42 Not Reportable 07/29/19 00:42 Not Reportable 07/29/19 00:42 Not Reportable 07/29/19 00:42 Not Reportable 07/29/19 00:42 Not Reportable 07/29/19 00:42 Not Reportable 07/29/19 00:42 Not Reportable 07/29/19 00:42 Not Reportable 07/29/19 00:42 Plt Clumps, EDTA Not Reportable 07/29/19 00:42 Not Reportable 07/29/19 00:42 Not Reportable 07/29/19 00:42 Not Reportable 07/29/19 00:42 Plt Morphology Comment Not Reportable 07/29/19 00:42 RBC Morphology Not Reportable 07/29/19 00:42 Dimorphic RBCs Not Reportable 07/29/19 00:42 Not Reportable 07/29/19 00:42 Not Reportable 07/29/19 00:42 Not Reportable 07/29/19 00:42 2+ 07/29/19 00:42 Not Reportable 07/29/19 00:42 Not Reportable 07/29/19 00:42 Not Reportable 07/29/19 00:42 Not Reportable 07/29/19 00:42 Not Reportable 07/29/19 00:42 Not Reportable 07/29/19 00:42 Not Reportable 07/29/19 00:42 Not Reportable 07/29/19 00:42 Not Reportable 07/29/19 00:42 Not Reportable 07/29/19 00:42 Not Reportable 07/29/19 00:42 Not Reportable 07/29/19 00:42 Not Reportable 07/29/19 00:42 Not Reportable 07/29/19 00:42 Not Reportable 07/29/19 00:42 Acanthocytes (Spur) Not Reportable 07/29/19 00:42 Rouleaux Not Reportable 07/29/19 00:42 Not Reportable 07/29/19 00:42 Not Reportable 07/29/19 00:42 Not Reportable 07/29/19 00:42 Not Reportable 07/29/19 00:42 Hem Pathologist Commnt No 07/29/19 00:42 PT 13.8 Sec. (12.2-14.9) 07/29/19 00:42 INR 1.09 (0.87-1.13) 07/29/19 00:42 APTT 26.5 Sec. (24.2-36.6) 07/29/19 00:42 17.2 Sec. (15.1-19.6) 07/29/19 00:42 1354.97 ng/mlDDU (0-234) H 07/29/19 00:42 Sodium 143 mmol/L (137-145) 07/29/19 04:06 Potassium 3.8 mmol/L (3.6-5.0) 07/29/19 04:06 Chloride 105.2 mmol/L (98-107) 07/29/19 04:06 Carbon Dioxide 23 mmol/L (22-30) 07/29/19 04:06 19 mmol/L 07/29/19 04:06 BUN 29 mg/dL (9-20) H 07/29/19 04:06 1.2 mg/dL (0.8-1.5) 07/29/19 04:06 Estimated GFR > 60 ml/min 07/29/19 04:06 24 % 07/29/19 04:06 Glucose 90 mg/dL (75-100) 07/29/19 04:06 POC Glucose 83 (70-105) 07/29/19 01:06 Lactic Acid 4.00 mmol/L (0.7-2.0) H* 07/29/19 04:46 Calcium 8.4 mg/dL (8.4-10.2) 07/29/19 04:06 0.170 ng/mL (0.00-0.029) H* 07/29/19 04:06 NT-Pro-B Natriuret Pep 1767 pg/mL (0-900) H 07/29/19 02:03 Triglycerides TNR 07/29/19 00:42 Cholesterol TNR 07/29/19 00:42 TNR 07/29/19 00:42 TNR 07/29/19 00:42 TNR 07/29/19 00:42 Yellow (Yellow) 07/29/19 01:50 Slightly-cloudy (Clear) 07/29/19 01:50 5.0 (5.0-7.0) 07/29/19 01:50 Ur Specific Vancleave 1.017 (1.003-1.030) 07/29/19 01:50 100 mg/dl mg/dL (Negative) 07/29/19 01:50 Neg mg/dL (Negative) 07/29/19 01:50 Neg mg/dL (Negative) 07/29/19 01:50 Mod (Negative) 07/29/19 01:50 Pos (Negative) 07/29/19 01:50 Neg (Negative) 07/29/19 01:50 2.0 mg/dL (<2.0) 07/29/19 01:50 Ur Leukocyte Esterase Tr (Negative) 07/29/19 01:50 10.0 /HPF (0.0-6.0) H 07/29/19 01:50 41.0 /HPF (0.0-6.0) 07/29/19 01:50 U Epithel Cells (Auto) 1.0 /HPF (0-13.0) 07/29/19 01:50 2+ /HPF (Negative) 07/29/19 01:50 Few /HPF 07/29/19 01:50 Assessment and Plan Assessment and plan: 53-year-old man with a history of hypertension, COPD, primary Ritter cytosis, hemorrhagic CVA was brought to the emergency room because he was noted to be less responsive and had trouble breathing per family. He is unable to give a history, was noted to have a seizure in the emergency room. Elevated fever/+UA, given cepifime,IVF. After 2L fluid, his saturation dropped to 70s temporarily. Agree with plan as stated above, except give a dose of vanco, check cardiac enzymes, echo, hold further fluid for now, crackles on PE. Follow v/q
[2019-07-29] MEDS: ZOSYN/NS 3.375GM/50ML 3.375 GM/50 ML BAG IV SCH ×2 (06:30→14:49)
[2019-07-29] MEDS ORDERED: VANCOMYCIN/NS 1 GM/250 ML 1 GM/250 ML BAG IV ONE (06:41)
[2019-07-29] MEDS ORDERED: VANCOMYCIN 1,250 MG in NACL 0.9% 250ML 250 ML IV ONE (07:00)
[2019-07-29 07:59] LABS: Creatine Kinase MB 2.4 ng/mL (0.0-4.0)
--- NOTE | 2019-07-29 08:05 | Nuclear Medicine Report ---
PERFUSION PULMONARY SCINTIGRAPHY HISTORY: Elevated d-dimer COMPARISON: 07/29/2019 chest radiograph. TECHNIQUE: Radiopharmaceutical was inhaled. Tc-99m-MAA was then injected. Ventilation and perfusion images were acquired. RADIOPHARMACEUTICAL: 5.2 mCi of Tc-99m-MAA injected FINDINGS: PERFUSION: No significant segmental or non-segmental defect. Additional Findings: Contamination and artifact from injection in the right arm is noted. IMPRESSION: No perfusion defect to suggest pulmonary embolus is identified. Signer Name: Dawson Carvajal Jr, MD Signed: 07/29/2019 8:01 AM Workstation Name: [id number]
--- NOTE | 2019-07-29 08:26 | Event Note ---
Date: 07/29/19 [id number]
[2019-07-29] MEDS ORDERED: HYDROXYUREA PO SCH (10:00)
[2019-07-29] MEDS ORDERED: NON-FORMULARY (Metoprolol Tartrate 50 MG) PO SCH (10:00)
[2019-07-29] MEDS: ASPIRIN PO SCH (11:00)
[2019-07-29] MEDS: ZESTRIL PO SCH (11:00)
[2019-07-29] MEDS: METOPROLOL PO SCH ×2 (11:00→21:33)
--- NOTE | 2019-07-29 11:42 | Event Note ---
Date: 07/29/19 Patient seen and examined, reamis with elevated Temp, Add acylovir, obtain ID consult. Defer LP to ID team
[2019-07-29] MEDS: KEPPRA 1,000 MG in D5W 100 ML IV SCH ×2 (12:00→22:41)
[2019-07-29 13:36] LABS: Creatine Kinase MB 2.8 ng/mL (0.0-4.0)
[2019-07-29] MEDS: ZOVIRAX 1,000 MG in NACL 0.9% 100 ML IV SCH ×2 (14:10→21:33)
[2019-07-29] MEDS: NACL 0.9% 1000 ML 1,000 ML IV SCH (14:11)
[2019-07-29] MEDS ORDERED: SODIUM BICARBONATE FEEDTUBE PRN (14:30)
[2019-07-29] MEDS ORDERED: PANCREAZE DR 10,500 UNIT FEEDTUBE PRN (14:30)
[2019-07-29] MEDS ORDERED: SIMPLE SYRUP FEEDTUBE PRN ×2 (14:30)
--- NOTE | 2019-07-29 15:00 | Consultation ---
History of Present Illness - Reason for Consult Consult date: 07/29/19 Sepsis, AMS Requesting physician: JUANCARLOS MCLEOD - History of Present Illness The patient is a 53-year-old male with JAK2 mutation, COPD, hypertension, prior CVA presented to the emergency room with fever and altered mental status of one day duration. Initially a stroke alert was called and he was not considered a candidate for TPA. Due to fever, cultures for infection was raised and he was started on empiric antibiotics. Currently, he remains obtunded, unable to provide history. No family available at bedside. History obtained by chart review and by discussing with the patient's RN at bedside. The fever was as high as 104.8F on admission. Review of Systems: Unable to obtain due to AMS. Past History Past Medical History: COPD, hypertension, hyperlipidemia, stroke (x2 (11/2018 & 02/2019), hx hemorrhage CVA and ischemic CVA), other (JAK2 positive, thrombocytosis) Past Surgical History: Other (removal of left kidney) Social history: , lives with family Family history: no significant family history Medications and Allergies Allergies Allergy/AdvReac Type Severity Reaction Status Date / Time No Known Allergies Allergy Unverified 07/17/14 19:25 Home Medications Medication Instructions Recorded Confirmed Last Taken Type Metoprolol Tartrate 50 mg PO BID 03/05/19 03/05/19 Unknown History QUEtiapine 50 mg PO DAILY 03/05/19 03/05/19 Unknown History Aspirin 325 mg PO QDAY tablet 03/11/19 Unknown Rx AtorvaSTATin [Lipitor] 80 mg PO QHS tablet 03/11/19 Unknown Rx Hydroxyurea [Hydrea] 500 mg PO QDAY capsule 03/11/19 Unknown Rx Lisinopril [Zestril TAB] 20 mg PO QDAY tablet 03/11/19 Unknown Rx traZODone [Desyrel] 50 mg PO QDAY PRN tablet 03/11/19 Unknown Rx Active Meds: Active Medications Acetaminophen (Tylenol) 650 mg PO Q4H PRN PRN Reason: Pain, Mild (1-3), fever 100.5> Lipase/Protease/Amylase (Ana Rosa Joseph 10,500 Unit) 1 each FEEDTUBE PRN PRN PRN Reason: For Clogged Feeding Tube Aspirin (Aspirin) 325 mg PO QDAY [facility] Last Admin: 07/29/19 11:00 Dose: 325 mg Documented by: Atorvastatin Calcium (Lipitor) 80 mg PO QHS [facility] Bisacodyl (Dulcolax) 10 mg [place] QDAY PRN PRN Reason: Constipation Levetiracetam 1,000 mg/ (Dextrose) 110 mls @ 400 mls/hr IV Q12HR [facility] Last Admin: 07/29/19 12:00 Dose: 400 mls/hr Documented by: Acyclovir 1,000 mg/ Sodium (Chloride) 120 mls @ 100 mls/hr IV Q8H [facility]; Protocol Last Admin: 07/29/19 14:10 Dose: 100 mls/hr Documented by: Sodium Chloride (Nacl 0.9% 1000 Ml) 1,000 mls @ 125 mls/hr IV DIRECT [facility] Last Admin: 07/29/19 14:11 Dose: 125 mls/hr Documented by: Lisinopril (Zestril) 20 mg PO QDAY [facility] Last Admin: 07/29/19 11:00 Dose: 20 mg Documented by: Lorazepam (Ativan) 1 mg IV Q4H PRN PRN Reason: Seizures Magnesium Hydroxide (Milk Of Magnesia) 30 ml PO Q4H PRN PRN Reason: Constipation Metoprolol Tartrate (Lopressor) 50 mg PO BID [facility] Last Admin: 07/29/19 11:00 Dose: 50 mg Documented by: Ondansetron HCl (Zofran) 4 mg IV Q6H PRN PRN Reason: Nausea And Vomiting Simple Syrup (Simple Syrup) 15 ml FEEDTUBE PRN PRN PRN Reason: Hypoglycemia Simple Syrup (Simple Syrup) 30 ml FEEDTUBE PRN PRN PRN Reason: Hypoglycemia Sodium Bicarbonate (Sodium Bicarbonate) 325 mg FEEDTUBE PRN PRN PRN Reason: For Clogged Feeding Tube Sodium Chloride (Sodium Chloride Flush Syringe 10 Ml) 10 ml IV PRN PRN PRN Reason: LINE FLUSH Physical Examination - Physical Exam Narrative exam: Physical Exam: Constitutional: drowsy, non verbal Head, Ears, Nose: Normocephalic, atraumatic. External ears, nose normal Eyes: Conjunctivae/corneas clear. No icterus. No ptosis. Neck: somewhat stiff neck, no meningeal signs elicited Oral: unable to examine Cardiovascular: S1, S2 normal. Respiratory: Good air entry, clear to auscultation bilaterally GI: Soft, non-tender; bowel sounds normal. No peritoneal signs Musculoskeletal: No pedal edema, no cyanosis. Skin: No rash or abscess Hem/Lymphatic: No palpable cervical or supraclavicular nodes. No lymphangitis Psych: no agitation Neurological: drowsy non verbal. - Constitutional Vitals: Vital Signs Temp Pulse Resp BP Pulse Ox 104.5 F H 70 23 115/55 98 07/29/19 04:00 07/29/19 11:00 07/29/19 08:00 07/29/19 11:00 07/29/19 12:49 Temperature -Last 24 Hours Temperature 104.5 F Temperature 104.8 F Results - Labs CBC & Chem 7: 07/29/19 00:42 07/29/19 04:06 Labs: Abnormal lab results 07/29/19 07/29/19 07/29/19 Range/Units 00:42 00:42 00:48 WBC 2.0 L (4.5-11.0) K/mm3 RBC 3.04 L (3.65-5.03) M/mm3 Hgb 10.9 L (11.8-15.2) gm/dl Hct 31.9 L (35.5-45.6) % MCV 105 H (84-94) fl MCH 36 H (28-32) pg RDW 24.9 H (13.2-15.2) % Seg Neuts % (Manual) 82.0 H (40.0-70.0) % Seg Neutrophils # Man 1.6 L (1.8-7.7) K/mm3 Lymphocytes # (Manual) 0.3 L (1.2-5.4) K/mm3 D-Dimer 1354.97 H (0-234) ng/mlDDU BUN (9-20) mg/dL POC Glucose (70-105) Lactic Acid 2.90 H* (0.7-2.0) mmol/L Total Creatine Kinase (55-170) units/L Troponin T (0.00-0.029) ng/mL NT-Pro-B Natriuret Pep (0-900) pg/mL Urine WBC (Auto) (0.0-6.0) /HPF 07/29/19 07/29/19 07/29/19 Range/Units 01:50 02:03 04:06 WBC (4.5-11.0) K/mm3 RBC (3.65-5.03) M/mm3 Hgb (11.8-15.2) gm/dl Hct (35.5-45.6) % MCV (84-94) fl MCH (28-32) pg RDW (13.2-15.2) % Seg Neuts % (Manual) (40.0-70.0) % Seg Neutrophils # Man (1.8-7.7) K/mm3 Lymphocytes # (Manual) (1.2-5.4) K/mm3 D-Dimer (0-234) ng/mlDDU BUN (9-20) mg/dL POC Glucose (70-105) Lactic Acid 3.90 H* (0.7-2.0) mmol/L Total Creatine Kinase (55-170) units/L Troponin T (0.00-0.029) ng/mL NT-Pro-B Natriuret Pep 1767 H (0-900) pg/mL Urine WBC (Auto) 10.0 H (0.0-6.0) /HPF 07/29/19 07/29/19 07/29/19 Range/Units 04:06 04:06 04:46 WBC (4.5-11.0) K/mm3 RBC (3.65-5.03) M/mm3 Hgb (11.8-15.2) gm/dl Hct (35.5-45.6) % MCV (84-94) fl MCH (28-32) pg RDW (13.2-15.2) % Seg Neuts % (Manual) (40.0-70.0) % Seg Neutrophils # Man (1.8-7.7) K/mm3 Lymphocytes # (Manual) (1.2-5.4) K/mm3 D-Dimer (0-234) ng/mlDDU BUN 29 H (9-20) mg/dL POC Glucose (70-105) Lactic Acid 4.00 H* (0.7-2.0) mmol/L Total Creatine Kinase (55-170) units/L Troponin T 0.170 H* (0.00-0.029) ng/mL NT-Pro-B Natriuret Pep (0-900) pg/mL Urine WBC (Auto) (0.0-6.0) /HPF 07/29/19 07/29/19 07/29/19 Range/Units 06:56 07:02 09:50 WBC (4.5-11.0) K/mm3 RBC (3.65-5.03) M/mm3 Hgb (11.8-15.2) gm/dl Hct (35.5-45.6) % MCV (84-94) fl MCH (28-32) pg RDW (13.2-15.2) % Seg Neuts % (Manual) (40.0-70.0) % Seg Neutrophils # Man (1.8-7.7) K/mm3 Lymphocytes # (Manual) (1.2-5.4) K/mm3 D-Dimer (0-234) ng/mlDDU BUN (9-20) mg/dL POC Glucose 108 H (70-105) Lactic Acid 3.90 H* (0.7-2.0) mmol/L Total Creatine Kinase (55-170) units/L Troponin T 0.148 H* (0.00-0.029) ng/mL NT-Pro-B Natriuret Pep (0-900) pg/mL Urine WBC (Auto) (0.0-6.0) /HPF 07/29/19 07/29/19 07/29/19 Range/Units 10:44 10:44 11:29 WBC (4.5-11.0) K/mm3 RBC (3.65-5.03) M/mm3 Hgb (11.8-15.2) gm/dl Hct (35.5-45.6) % MCV (84-94) fl MCH (28-32) pg RDW (13.2-15.2) % Seg Neuts % (Manual) (40.0-70.0) % Seg Neutrophils # Man (1.8-7.7) K/mm3 Lymphocytes # (Manual) (1.2-5.4) K/mm3 D-Dimer (0-234) ng/mlDDU BUN (9-20) mg/dL POC Glucose 117 H (70-105) Lactic Acid 2.20 H* (0.7-2.0) mmol/L Total Creatine Kinase (55-170) units/L Troponin T 0.114 H* D (0.00-0.029) ng/mL NT-Pro-B Natriuret Pep (0-900) pg/mL Urine WBC (Auto) (0.0-6.0) /HPF 07/29/19 Range/Units 12:58 WBC (4.5-11.0) K/mm3 RBC (3.65-5.03) M/mm3 Hgb (11.8-15.2) gm/dl Hct (35.5-45.6) % MCV (84-94) fl MCH (28-32) pg RDW (13.2-15.2) % Seg Neuts % (Manual) (40.0-70.0) % Seg Neutrophils # Man (1.8-7.7) K/mm3 Lymphocytes # (Manual) (1.2-5.4) K/mm3 D-Dimer (0-234) ng/mlDDU BUN (9-20) mg/dL POC Glucose (70-105) Lactic Acid (0.7-2.0) mmol/L Total Creatine Kinase 184 H (55-170) units/L Troponin T (0.00-0.029) ng/mL NT-Pro-B Natriuret Pep (0-900) pg/mL Urine WBC (Auto) (0.0-6.0) /HPF - Imaging and Cardiology Chest x-ray: report reviewed, image reviewed (mild pulm congestion.) Assessment and Plan Cultures: 07/29/2019 Blood culture: in process A/P: 53-year-old male with JAK2 mutation, COPD, hypertension, prior CVA admitted with: 1) Sepsis, leukopenia, and acute encephalopathy: source unclear, acute onsent. Possible UTI versus meningitis. Obtain LP. Treat empirically with broad- spectrum antibiotics for now. No respiratory distress, doubt pneumonia. UTI is possible given mild pyuria in the setting of leucopenia. Recs: Obtain LP Orders placed for CSF for cell count, protein, glucose and culture, HSV PCR Treat empirically with broad-spectrum antibiotics (Ceftriaxone, Acyclovir, Vancomycin) for now, orders adjusted by me follow up blood and urine cultures D/W Dr. Chance Salas MD, FACP [facility] C: [phone] O: [phone] F: [phone]
--- NOTE | 2019-07-29 17:54 | Consultation ---
History of Present Illness Consult date: 07/29/19 Chief complaint: Encephalopathy, seizure History of present illness: This is a 53 YO m with JAK2 and recent ischemic and hemorrhagic strokes this year who presented to the ED with fever and seizure. Pt has not had a seizure previously. I was able to speak to his Mrs. Gustafson. She says that he was doing well up until the event. No recent illness. No new meds. Has been recovering appropriately post stroke. On my arrival he is not speaking but he will follow commands. Past History Past Medical History: COPD, hypertension, hyperlipidemia, stroke (x2 (11/2018 & 02/2019), hx hemorrhage CVA and ischemic CVA), other (JAK2 positive, thrombocytosis) Past Surgical History: Other (removal of left kidney) Social history: , lives with family Family history: no significant family history Medications and Allergies Allergies Allergy/AdvReac Type Severity Reaction Status Date / Time No Known Allergies Allergy Unverified 07/17/14 19:25 Home Medications Medication Instructions Recorded Confirmed Last Taken Type Metoprolol Tartrate 50 mg PO BID 03/05/19 07/29/19 07/28/19 History QUEtiapine 50 mg PO DAILY 03/05/19 07/29/19 Unknown History Aspirin 325 mg PO QDAY tablet 03/11/19 07/29/19 07/29/19 17:39 Rx AtorvaSTATin [Lipitor] 80 mg PO QHS tablet 03/11/19 07/29/19 Unknown Rx Hydroxyurea [Hydrea] 500 mg PO QDAY capsule 03/11/19 07/29/19 07/28/19 Rx Lisinopril [Zestril TAB] 20 mg PO QDAY tablet 03/11/19 07/29/19 Unknown Rx traZODone [Desyrel] 50 mg PO QDAY PRN tablet 03/11/19 07/29/19 Unknown Rx Active Meds: Active Medications Acetaminophen (Tylenol) 650 mg PO Q4H PRN PRN Reason: Pain, Mild (1-3), fever 100.5> Lipase/Protease/Amylase (Ana Rosa Joseph 10,500 Unit) 1 each FEEDTUBE PRN PRN PRN Reason: For Clogged Feeding Tube Aspirin (Aspirin) 325 mg PO QDAY [facility] Last Admin: 07/29/19 11:00 Dose: 325 mg Documented by: Atorvastatin Calcium (Lipitor) 80 mg PO QHS [facility] Bisacodyl (Dulcolax) 10 mg [facility] QDAY PRN PRN Reason: Constipation Levetiracetam 1,000 mg/ (Dextrose) 110 mls @ 400 mls/hr IV Q12HR [facility] Last Admin: 07/29/19 12:00 Dose: 400 mls/hr Documented by: Acyclovir 1,000 mg/ Sodium (Chloride) 120 mls @ 100 mls/hr IV Q8H [facility]; Protocol Last Admin: 07/29/19 14:10 Dose: 100 mls/hr Documented by: Sodium Chloride (Nacl 0.9% 1000 Ml) 1,000 mls @ 125 mls/hr IV DIRECT [facility] Last Admin: 07/29/19 14:11 Dose: 125 mls/hr Documented by: Ceftriaxone Sodium (Rocephin/Ns 2 Gm/100 Ml) 2 gm in 100 mls @ 200 mls/hr IV Q12H [facility]; Protocol Lisinopril (Zestril) 20 mg PO QDAY [facility] Last Admin: 07/29/19 11:00 Dose: 20 mg Documented by: Lorazepam (Ativan) 1 mg IV Q4H PRN PRN Reason: Seizures Magnesium Hydroxide (Milk Of Magnesia) 30 ml PO Q4H PRN PRN Reason: Constipation Metoprolol Tartrate (Lopressor) 50 mg PO BID [facility] Last Admin: 07/29/19 11:00 Dose: 50 mg Documented by: Ondansetron HCl (Zofran) 4 mg IV Q6H PRN PRN Reason: Nausea And Vomiting Simple Syrup (Simple Syrup) 15 ml FEEDTUBE PRN PRN PRN Reason: Hypoglycemia Simple Syrup (Simple Syrup) 30 ml FEEDTUBE PRN PRN PRN Reason: Hypoglycemia Sodium Bicarbonate (Sodium Bicarbonate) 325 mg FEEDTUBE PRN PRN PRN Reason: For Clogged Feeding Tube Sodium Chloride (Sodium Chloride Flush Syringe 10 Ml) 10 ml IV PRN PRN PRN Reason: LINE FLUSH Review of Systems ROS unobtainable: due to mental status Physical Examination - Vital Signs Vital Signs: Vital Signs Temp Pulse Resp BP Pulse Ox 104.8 F H 131 H 28 H 143/81 96 07/29/19 01:03 07/29/19 01:03 07/29/19 01:03 07/29/19 01:03 07/29/19 01:03 - Constitutional General appearance: comfortable - EENT EENT: Present: PERRL, mucous membranes moist - Respiratory Respiratory: Present: lungs clear - Cardiovascular Cardiovascular: Present: regular rate - Gastrointestinal Gastrointestinal: Present: normoactive bowel sounds - Neurologic Cranial nerve examination: PERRL, EOMI, face symmetric, tongue midline Detailed motor examination: other (moves all extremities but only moves upper ext against gravity) Results - Laboratory Findings CBC and BMP: 07/29/19 00:42 07/29/19 04:06 Abnormal Lab Findings: Abnormal Labs 07/29/19 07/29/19 07/29/19 00:42 00:42 00:48 WBC 2.0 L RBC 3.04 L Hgb 10.9 L Hct 31.9 L MCV 105 H MCH 36 H RDW 24.9 H Seg Neuts % (Manual) 82.0 H Seg Neutrophils # Man 1.6 L Lymphocytes # (Manual) 0.3 L D-Dimer 1354.97 H BUN POC Glucose Lactic Acid 2.90 H* Total Creatine Kinase Troponin T NT-Pro-B Natriuret Pep Urine WBC (Auto) 07/29/19 07/29/19 07/29/19 01:50 02:03 04:06 WBC RBC Hgb Hct MCV MCH RDW Seg Neuts % (Manual) Seg Neutrophils # Man Lymphocytes # (Manual) D-Dimer BUN POC Glucose Lactic Acid 3.90 H* Total Creatine Kinase Troponin T NT-Pro-B Natriuret Pep 1767 H Urine WBC (Auto) 10.0 H 07/29/19 07/29/19 07/29/19 04:06 04:06 04:46 WBC RBC Hgb Hct MCV MCH RDW Seg Neuts % (Manual) Seg Neutrophils # Man Lymphocytes # (Manual) D-Dimer BUN 29 H POC Glucose Lactic Acid 4.00 H* Total Creatine Kinase Troponin T 0.170 H* NT-Pro-B Natriuret Pep Urine WBC (Auto) 07/29/19 07/29/19 07/29/19 06:56 07:02 09:50 WBC RBC Hgb Hct MCV MCH RDW Seg Neuts % (Manual) Seg Neutrophils # Man Lymphocytes # (Manual) D-Dimer BUN POC Glucose 108 H Lactic Acid 3.90 H* Total Creatine Kinase Troponin T 0.148 H* NT-Pro-B Natriuret Pep Urine WBC (Auto) 07/29/19 07/29/19 07/29/19 10:44 10:44 11:29 WBC RBC Hgb Hct MCV MCH RDW Seg Neuts % (Manual) Seg Neutrophils # Man Lymphocytes # (Manual) D-Dimer BUN POC Glucose 117 H Lactic Acid 2.20 H* Total Creatine Kinase Troponin T 0.114 H* D NT-Pro-B Natriuret Pep Urine WBC (Auto) 07/29/19 12:58 WBC RBC Hgb Hct MCV MCH RDW Seg Neuts % (Manual) Seg Neutrophils # Man Lymphocytes # (Manual) D-Dimer BUN POC Glucose Lactic Acid Total Creatine Kinase 184 H Troponin T NT-Pro-B Natriuret Pep Urine WBC (Auto) - Diagnostic Findings Additional findings: CT head, CTA head and neck reviewed Assessment and Plan This is a 53 YO M with history of recent strokes who presented to the ED with AMS, suspected seizure. Pt also with Tmax 104.8 REcommend: Agree with LP and empiric antibiotic coverage for now. Infection work up underway. CT/CTA unremarkable, will need MRI Brain EEG No AED's for now but if pt with seizure or abnormal EEG would start. Ativan PRN seizure activity > 3 mins Continue care for all medical issues as you are doing POC discussed with pt's Mrs. Gustafson via phone at the bedside Call with questions
[2019-07-29] MEDS: ROCEPHIN/NS 2 GM/100 ML 2 GM/100 ML BAG IV SCH (20:17)
[2019-07-30] MEDS: ROCEPHIN/NS 2 GM/100 ML 2 GM/100 ML BAG IV SCH (03:38)
[2019-07-30] MEDS: NACL 0.9% 1000 ML 1,000 ML IV SCH ×2 (03:39→19:19)
[2019-07-30] MEDS: ZOVIRAX 1,000 MG in NACL 0.9% 100 ML IV SCH ×2 (05:20→14:33)
[2019-07-30 06:45] LABS: Hematocrit 25.1 % (35.5-45.6); Hemoglobin 8.2 gm/dl (11.8-15.2); Mean Corpuscular HGB Conc 33 % (32-34); Mean Corpuscular Volume 107 fl (84-94); Platelet Count 203 K/mm3 (140-440); Red Blood Count 2.34 M/mm3 (3.65-5.03)
[2019-07-30 06:49] LABS: Red Cell Distribution Width 25.3 % (13.2-15.2)
[2019-07-30 07:01] LABS: BUN/Creatinine Ratio 24; Blood Urea Nitrogen 24 mg/dL (9-20); Calcium 8.3 mg/dL (8.4-10.2); Hemolysis Index 3
--- NOTE | 2019-07-30 07:16 | Hem/Onc Progress Note ---
Assessment and Plan 1. Unresponsiveness, history of fever. ID team following. 2. JAK2 mutation. The patient was on hydroxyurea, white cell count was low, Hydrea has been held. 3. History of chronic obstructive pulmonary disease. 4. History of hypertension. 5. History of hyperlipidemia. 6. History of cerebrovascular accident. 7. History of left renal cell cancer removal. 8. V/Q scan is negative for pulmonary embolism. 9. Lumbar puncture was ordered by ID. 10. I will follow the patient during inpatient stay. 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 pt awake - but speech slurred follows command of moving legs and opening mouth as per old notes - pt had been with Dr Frankel He was admitted to [facility] in feb 2019 - with CVA - Patient Problems (1) Myeloproliferative disease Current Visit: No Status: Acute Subjective Date of service: 07/30/19 Principal diagnosis: JAK2+ CMPD Interval history: awake - slurred speech Objective - Exam Narrative Exam: Pain - n/a General appearance - awake - but slurred speech Performance status complete dependence Eyes - no icterus ENT - no bleeding LNs cervical not palpable Neck - no LN Respiratory Normal Breath sounds - CTA anteriorly CVS S1 S2 + Extremities no calf tenderness General GI Soft Rectal deferred male - deferred Skin warm Musculoskeletal moving extremitites Neurologically awake - slurred speech - Constitutional Vitals: Last Vital Signs Temp 98.4 F 07/30/19 03:52 Pulse 70 07/30/19 03:49 Resp 20 07/30/19 03:49 BP 101/52 07/30/19 03:49 Pulse Ox 99 07/30/19 03:49 - Labs Lab Results: Laboratory Results - last 24 hr 07/29/19 07/29/19 07/29/19 06:56 07:02 09:50 WBC RBC Hgb Hct MCV MCH MCHC RDW Plt Count Sodium Potassium Chloride Carbon Dioxide Anion Gap BUN Creatinine Estimated GFR BUN/Creatinine Ratio Glucose POC Glucose 108 H Lactic Acid 3.90 H* Calcium Total Creatine Kinase 163 CK-MB (CK-2) 2.4 CK-MB (CK-2) Rel Index 1.4 Troponin T 0.148 H* 07/29/19 07/29/19 07/29/19 10:44 10:44 11:29 WBC RBC Hgb Hct MCV MCH MCHC RDW Plt Count Sodium Potassium Chloride Carbon Dioxide Anion Gap BUN Creatinine Estimated GFR BUN/Creatinine Ratio Glucose POC Glucose 117 H Lactic Acid 2.20 H* Calcium Total Creatine Kinase CK-MB (CK-2) CK-MB (CK-2) Rel Index Troponin T 0.114 H* D 07/29/19 07/29/19 07/29/19 12:58 12:58 21:19 WBC RBC Hgb Hct MCV MCH MCHC RDW Plt Count Sodium Potassium Chloride Carbon Dioxide Anion Gap BUN Creatinine Estimated GFR BUN/Creatinine Ratio Glucose POC Glucose 98 Lactic Acid 1.80 Calcium Total Creatine Kinase 184 H CK-MB (CK-2) 2.8 CK-MB (CK-2) Rel Index 1.5 Troponin T 07/30/19 07/30/19 05:15 05:15 WBC 12.4 H RBC 2.34 L Hgb 8.2 L Hct 25.1 L D MCV 107 H MCH 35 H MCHC 33 RDW 25.3 H Plt Count 203 Sodium 142 Potassium 4.0 Chloride 109.3 H Carbon Dioxide 23 Anion Gap 14 BUN 24 H Creatinine 1.0 Estimated GFR > 60 BUN/Creatinine Ratio 24 Glucose 119 H POC Glucose Lactic Acid Calcium 8.3 L Total Creatine Kinase CK-MB (CK-2) CK-MB (CK-2) Rel Index Troponin T Medications & Allergies - Medications Allergies/Adverse Reactions: Allergies No Known Allergies Allergy (Unverified 07/17/14 19:25) Home Medications: Home Medications Medication Instructions Recorded Confirmed Last Taken Type Metoprolol Tartrate 50 mg PO BID 03/05/19 07/29/19 07/28/19 History QUEtiapine 50 mg PO DAILY 03/05/19 07/29/19 Unknown History Aspirin 325 mg PO QDAY tablet 03/11/19 07/29/19 07/29/19 17:39 Rx AtorvaSTATin [Lipitor] 80 mg PO QHS tablet 03/11/19 07/29/19 Unknown Rx Hydroxyurea [Hydrea] 500 mg PO QDAY capsule 03/11/19 07/29/19 07/28/19 Rx Lisinopril [Zestril TAB] 20 mg PO QDAY tablet 03/11/19 07/29/19 Unknown Rx traZODone [Desyrel] 50 mg PO QDAY PRN tablet 03/11/19 07/29/19 Unknown Rx Active Medications: Generic Name Dose Route Start Last Admin Trade Name Freq PRN Reason Stop Dose Admin Acetaminophen 650 mg 07/29/19 05:29 Tylenol PO Q4H PRN Pain, Mild (1-3), fever 100.5> Acetaminophen/Hydrocodone Bitart 1 each 07/29/19 21:50 [place] 5/325 PO Q4H PRN Pain, Moderate (4-6) Lipase/Protease/Amylase 1 each 07/29/19 14:[address] 10,500 Unit FEEDTUBE PRN PRN For Clogged Feeding Tube Aspirin 325 mg 07/29/19 10:00 07/29/19 11:00 Aspirin PO 325 mg QDAY [facility] Administration Atorvastatin Calcium 80 mg 07/29/19 22:00 07/29/19 21:32 Lipitor PO 80 mg QHS [facility] Administration Bisacodyl 10 mg 07/29/19 05:29 Dulcolax [place] QDAY PRN Constipation Levetiracetam 1,000 mg/ 110 mls @ 400 mls/hr 07/29/19 10:00 07/29/19 22:41 Dextrose IV 400 mls/hr Q12HR [facility] Administration Acyclovir 1,000 mg/ Sodium 120 mls @ 100 mls/hr 07/29/19 14:00 07/30/19 05:20 Chloride IV 100 mls/hr Q8H [facility] Administration Protocol Sodium Chloride 1,000 mls @ 125 mls/hr 07/29/19 13:00 07/30/19 03:39 Nacl 0.9% 1000 Ml IV 125 mls/hr DIRECT [facility] Administration Ceftriaxone Sodium 2 gm in 100 mls @ 200 mls/hr 07/29/19 16:00 07/30/19 03:38 Rocephin/Ns 2 Gm/100 Ml IV 200 mls/hr Q12H [facility] Administration Protocol Lisinopril 20 mg 07/29/19 10:00 07/29/19 11:00 Zestril PO 20 mg QDAY [facility] Administration Lorazepam 1 mg 07/29/19 06:42 Ativan IV Q4H PRN Seizures Magnesium Hydroxide 30 ml 07/29/19 05:29 Milk Of Magnesia PO Q4H PRN Constipation Metoprolol Tartrate 50 mg 07/29/19 10:00 07/29/19 21:33 Lopressor PO Not Given BID [facility] Ondansetron HCl 4 mg 07/29/19 05:29 Zofran IV Q6H PRN Nausea And Vomiting Simple Syrup 15 ml 07/29/19 14:30 Simple Syrup FEEDTUBE PRN PRN Hypoglycemia Simple Syrup 30 ml 07/29/19 14:30 Simple Syrup FEEDTUBE PRN PRN Hypoglycemia Sodium Bicarbonate 325 mg 07/29/19 14:30 Sodium Bicarbonate FEEDTUBE PRN PRN For Clogged Feeding Tube Sodium Chloride 10 ml 07/29/19 05:29 Sodium Chloride Flush Syringe 10 Ml IV PRN PRN LINE FLUSH
--- NOTE | 2019-07-30 08:40 | Consultation ---
REFERRED BY: Dr. Fletcher. REASON FOR CONSULTATION: Leukopenia, JAK2 mutation. HISTORY OF PRESENT ILLNESS: I saw the patient, a 53-year-old male in the hospital. The patient has history of JAK2 mutation, COPD, hypertension, came to the hospital because of fever and altered mentation for 1 day. There was a question of a stroke, but was not considered a candidate for TPA. Most of the information comes from the medical records. The patient is not verbalizing. No family members were present at the bedside. PAST MEDICAL HISTORY: COPD, hypertension, hyperlipidemia, stroke, history of hemorrhage, and ischemic CVA, JAK2 positive thrombocytosis. The patient was on hydroxyurea. PAST SURGICAL HISTORY: Removal of left kidney. SOCIAL HISTORY: , lives with family members. FAMILY HISTORY: Noncontributory. ALLERGIES: None. HOME MEDICATIONS: Include aspirin, hydroxyurea, lisinopril, and trazodone. I have been consulted because patient's history of JAK2 positive and being on Hydrea, low white cell count. PHYSICAL EXAMINATION: VITAL SIGNS: Temperature 97.9, pulse 62, respirations 18, BP 101/44. HEENT: Pallor present, no icterus. NECK: No neck lymph nodes. HEART: S1, S2. LUNGS: Clear to auscultation. ABDOMEN: Soft. NEUROLOGIC: The patient is not verbalizing. LABORATORY DATA: White cell 2, hemoglobin 10.9, MCV 105, platelet 256, D-dimers high, potassium 3.8, creatinine 1.2, calcium 8.4. RADIOLOGY: CT head was done. V/Q scan was done. V/Q scan was negative for PE. ASSESSMENT: 1. Unresponsiveness, history of fever. ID team following. 2. JAK2 mutation. The patient was on hydroxyurea, white cell count was low, Hydrea has been held. 3. History of chronic obstructive pulmonary disease. 4. History of hypertension. 5. History of hyperlipidemia. 6. History of cerebrovascular accident. 7. History of left renal cell cancer removal. 8. V/Q scan is negative for pulmonary embolism. 9. Lumbar puncture was ordered by ID. 10. I will follow the patient during inpatient stay. I will get more information as to who is his last scourer outside. JOB# [id number] NM/NTS
[2019-07-30] MEDS: KEPPRA 1,000 MG in D5W 100 ML IV SCH ×2 (09:54→21:40)
[2019-07-30] MEDS: VANCOMYCIN 1,500 MG in NACL 0.9% 500 ML 500 ML IV SCH ×2 (09:54→21:40)
[2019-07-30] MEDS: METOPROLOL PO SCH ×2 (09:55→21:41)
[2019-07-30] MEDS: ZESTRIL PO SCH (09:56)
[2019-07-30] MEDS: ASPIRIN PO SCH (10:39)
--- NOTE | 2019-07-30 10:53 | Consultation ---
History of Present Illness Consult date: 07/30/19 Consult reason: elevated troponin History of present illness: This is a 53-year-old male with a history of JAK2 mutation, COPD, hypertension, prior CVA who speaks a few words but not complete sentences. History taken from review of chart. He was brought to this hospital with decreased responsiveness and fever. Rectal temperature of 104.8 on presentation. Source of fever is unclear. Head CT scan reports no acute abnormality. Ventilation perfusion scan reports a low probability for PE. A cardiac consultation has been requested for elevation of troponin. Cardiac enzymes measured a CK of 16.3 with a relative index of 1.4. Troponin 0.148. His presenting ECG is sinus tachycardia, no acute ischemic changes. His latest workup with an echocardiogram, done 4-5 months ago, revealed moderate aortic regurgitation but no evidence of aortic stenosis. Normal left ventricular systolic function, ejection fraction 55-60%. Past History Past Medical History: COPD, hypertension, hyperlipidemia, stroke (x2 (11/2018 & 02/2019), hx hemorrhage CVA and ischemic CVA), other (JAK2 positive, thrombocytosis) Past Surgical History: Other (removal of left kidney) Social history: , lives with family Family history: no significant family history Medications and Allergies Allergies Allergy/AdvReac Type Severity Reaction Status Date / Time No Known Allergies Allergy Unverified 07/17/14 19:25 Home Medications Medication Instructions Recorded Confirmed Last Taken Type Metoprolol Tartrate 50 mg PO BID 03/05/19 07/29/19 07/28/19 History QUEtiapine 50 mg PO DAILY 03/05/19 07/29/19 Unknown History Aspirin 325 mg PO QDAY tablet 03/11/19 07/29/19 07/29/19 17:39 Rx AtorvaSTATin [Lipitor] 80 mg PO QHS tablet 03/11/19 07/29/19 Unknown Rx Hydroxyurea [Hydrea] 500 mg PO QDAY capsule 03/11/19 07/29/19 07/28/19 Rx Lisinopril [Zestril TAB] 20 mg PO QDAY tablet 03/11/19 07/29/19 Unknown Rx traZODone [Desyrel] 50 mg PO QDAY PRN tablet 03/11/19 07/29/19 Unknown Rx Active Meds: Active Medications Acetaminophen (Tylenol) 650 mg PO Q4H PRN PRN Reason: Pain, Mild (1-3), fever 100.5> Acetaminophen/Hydrocodone Bitart ([place] 5/325) 1 each PO Q4H PRN PRN Reason: Pain, Moderate (4-6) Lipase/Protease/Amylase (Pancreaze Dr 10,500 Unit) 1 each FEEDTUBE PRN PRN PRN Reason: For Clogged Feeding Tube Aspirin (Aspirin) 325 mg PO QDAY [facility] Last Admin: 07/30/19 10:39 Dose: Not Given Documented by: Atorvastatin Calcium (Lipitor) 80 mg PO QHS [facility] Last Admin: 07/29/19 21:32 Dose: 80 mg Documented by: Bisacodyl (Dulcolax) 10 mg IA QDAY PRN PRN Reason: Constipation Levetiracetam 1,000 mg/ (Dextrose) 110 mls @ 400 mls/hr IV Q12HR [facility] Last Admin: 07/30/19 09:54 Dose: 400 mls/hr Documented by: Acyclovir 1,000 mg/ Sodium (Chloride) 120 mls @ 100 mls/hr IV Q8H [facility]; Protocol Last Admin: 07/30/19 05:20 Dose: 100 mls/hr Documented by: Sodium Chloride (Nacl 0.9% 1000 Ml) 1,000 mls @ 125 mls/hr IV DIRECT [facility] Last Admin: 07/30/19 03:39 Dose: 125 mls/hr Documented by: Ceftriaxone Sodium (Rocephin/Ns 2 Gm/100 Ml) 2 gm in 100 mls @ 200 mls/hr IV Q12H [facility]; Protocol Last Admin: 07/30/19 03:38 Dose: 200 mls/hr Documented by: Vancomycin HCl 1,500 mg/ (Sodium Chloride) 530 mls @ 333.333 mls/hr IV Q12HR [facility] Last Admin: 07/30/19 09:54 Dose: 333.333 mls/hr Documented by: Lisinopril (Zestril) 20 mg PO QDAY [facility] Last Admin: 07/30/19 09:56 Dose: Not Given Documented by: Lorazepam (Ativan) 1 mg IV Q4H PRN PRN Reason: Seizures Magnesium Hydroxide (Milk Of Magnesia) 30 ml PO Q4H PRN PRN Reason: Constipation Metoprolol Tartrate (Lopressor) 50 mg PO BID [facility] Last Admin: 07/30/19 09:55 Dose: 50 mg Documented by: Ondansetron HCl (Zofran) 4 mg IV Q6H PRN PRN Reason: Nausea And Vomiting Simple Syrup (Simple Syrup) 15 ml FEEDTUBE PRN PRN PRN Reason: Hypoglycemia Simple Syrup (Simple Syrup) 30 ml FEEDTUBE PRN PRN PRN Reason: Hypoglycemia Sodium Bicarbonate (Sodium Bicarbonate) 325 mg FEEDTUBE PRN PRN PRN Reason: For Clogged Feeding Tube Sodium Chloride (Sodium Chloride Flush Syringe 10 Ml) 10 ml IV PRN PRN PRN Reason: LINE FLUSH Physical Examination Vital Signs Temp Pulse Resp BP Pulse Ox 104.8 F H 131 H 28 H 143/81 96 07/29/19 01:03 07/29/19 01:03 07/29/19 01:03 07/29/19 01:03 07/29/19 01:03 General appearance: no acute distress HEENT: Positive: PERRL Neck: Positive: trachea midline Cardiac: Positive: Reg Rate and Rhythm Lungs: Positive: Decreased Breath Sounds Neuro: Positive: Weakness Results 07/30/19 05:15 07/30/19 05:15 Cardiac Enzymes 07/29/19 Range/Units 12:58 CK-MB (CK-2) 2.8 (0.0-4.0) ng/mL CBC 07/30/19 Range/Units 05:15 WBC 12.4 H (4.5-11.0) K/mm3 RBC 2.34 L (3.65-5.03) M/mm3 Hgb 8.2 L (11.8-15.2) gm/dl Hct 25.1 L D (35.5-45.6) % Plt Count 203 (140-440) K/mm3 Comprehensive Metabolic Panel 07/30/19 Range/Units 05:15 Sodium 142 (137-145) mmol/L Potassium 4.0 (3.6-5.0) mmol/L Chloride 109.3 H (98-107) mmol/L Carbon Dioxide 23 (22-30) mmol/L BUN 24 H (9-20) mg/dL Creatinine 1.0 (0.8-1.5) mg/dL Glucose 119 H (75-100) mg/dL Calcium 8.3 L (8.4-10.2) mg/dL Assessment and Plan Sepsis head CT scan reports no acute abnormality. ventilation perfusion scan reports a low probability for PE. Hx of JAK2 mutation Hx of COPD Hypertension Prior CVA Elevation of troponin ECG is sinus tachycardia, no acute ischemic changes. An echocardiogram, done 02/2019, revealed moderate aortic regurgitation but no evidence of aortic stenosis. Normal left ventricular systolic function, ejection fraction 55-60%.
[2019-07-30] MEDS ORDERED: XYLOCAINE 1% 20 mL ONE (11:36)
--- NOTE | 2019-07-30 12:18 | Procedure Note ---
Date of procedure: 07/30/19 Pre-op diagnosis: altered mental status, fever Post-op diagnosis: same Procedure: flouro guided lumbar puncture Findings: none Anesthesia: local Surgeon: SHAHIDA CALVIN Estimated blood loss: none Pathology: list (4 csf tubes) Specimen disposition: to lab Condition: stable Disposition: floor
[2019-07-30 13:06] LABS: Glucose,CSF 64 mg/dL
[2019-07-30 13:31] LABS: Appearance,CSF Clear; White Blood Cell,CSF 3 /mm3 (1-10)
[2019-07-30 13:32] LABS: Red Blood Cell,CSF 75 /mm3 (0-0)
--- NOTE | 2019-07-30 13:39 | Fluoroscopy Report ---
LUMBAR PUNCTURE INDICATION : Fever, altered mental status, meningitis PROCEDURE: The risks (including but not limited to bleeding, infection, and spinal headache) and esteban efits were explained to the patient and informed consent was obtained. A time out procedure was perf ormed. The procedure site was prepped and draped in the usual sterile fashion and lidocaine was used for local anesthesia. Under fluoroscopic guidance, a 22-gauge spinal needle was advanced into the L3-4 interlaminar space. The opening pressure was 100 mm H2O which was calculated by adding the length of the needle (9 cm) to the height of the CSF column. 4 separate collection tubes were used to obtained 1 mL of CSF each. Sa mples were sent to the lab per the ordering physician specifications for further evaluation. The patient tolerated the procedure well with no complications. IMPRESSION: Successful lumbar puncture as outlined above. Opening pressure was 100 mm H20. Fluoroscopic time: 0.6 Number of fluoroscopic images: 1 Signer Name: Dawson Carvajal Jr, MD Signed: 07/30/2019 1:34 PM Workstation Name: [id number]
[2019-07-30 14:24] LABS: Total Cells Counted 18 /mm3
[2019-07-30 14:25] LABS: Basophils CSF 0 %
--- NOTE | 2019-07-30 14:36 | Progress Note ---
Assessment and Plan Cultures: 07/29/2019 Blood culture: GPC Urine culture: mixed growth A/P: 53-year-old male with JAK2 mutation, COPD, hypertension, prior CVA admitted with: 1) Sepsis, leukopenia on admission, now leucocytosis, and acute encephalopathy: source unclear, acute onset. Possible UTI, v/s GPC bacteremia. LP unremarkable. 2) UTI: is possible given mild pyuria in the setting of leucopenia. Culture with mixed growth. Will treat for 5 days. 3) GPC bacteremia Recs: repeat blood cultures ordered change Ceftriaxone dose to q24 hrs continue IV Vancomycin f/u TTE Acyclovir can be discontinued D/W Dr. Chance Salas MD, FACP [facility] C: [phone] O: [phone] F: [phone] Subjective Date of service: 07/30/19 Interval history: More awake today. No fever. Denies any complaints. Objective - Exam Narrative Exam: Physical Exam: Constitutional: awake, no distress Head, Ears, Nose: Normocephalic, atraumatic. External ears, nose normal Eyes: Conjunctivae/corneas clear. No icterus. No ptosis. Neck: supple, no meningeal signs Cardiovascular: S1, S2 normal. Respiratory: Good air entry, clear to auscultation bilaterally GI: Soft, non-tender; bowel sounds normal. No peritoneal signs Musculoskeletal: No pedal edema, no cyanosis. Skin: No rash or abscess Hem/Lymphatic: No palpable cervical or supraclavicular nodes. No lymphangitis Psych: pleasant mood, no agitation Neurological: awake, dysarthria + - Constitutional Vitals: Vital Signs Temp Pulse Resp BP Pulse Ox 97.8 F 69 16 103/58 100 07/30/19 07:59 07/30/19 09:56 07/30/19 07:59 07/30/19 09:56 07/30/19 10:31 Temperature -Last 24 Hours Temperature 97.8 F Temperature 98.4 F Temperature 97.9 F Temperature 97.9 F Temperature 97.5 F - Labs CBC & Chem 7: 07/30/19 05:15 07/30/19 05:15 Labs: Abnormal lab results 09/17/19 09/17/19 09/17/19 Range/Units 05:15 05:15 07:32 WBC 12.4 H (4.5-11.0) K/mm3 RBC 2.34 L (3.65-5.03) M/mm3 Hgb 8.2 L (11.8-15.2) gm/dl Hct 25.1 L D (35.5-45.6) % MCV 107 H (84-94) fl MCH 35 H (28-32) pg RDW 25.3 H (13.2-15.2) % Chloride 109.3 H (98-107) mmol/L BUN 24 H (9-20) mg/dL Glucose 119 H (75-100) mg/dL POC Glucose 124 H (70-105) Calcium 8.3 L (8.4-10.2) mg/dL
--- NOTE | 2019-07-30 14:39 | Progress Note ---
Assessment and Plan Assessment and plan: 53-year-old -[place] male who is nonverbal with history of COPD, hypertension, thrombocytosis, JAK2 positive, CVA 2 (hemorrhagic 11/2018 and ischemic 02/2019) right-sided residual deficits, and HLD who presents to [facility] ED with complaints of altered mental status and difficulty breathing. He is unable to provide history history is provided by son (who is present at bedside) and via telephone and medical records. According to patient's family patient was transferred to [facility] and 0. Approximately 1.5hours later he was found to be less responsive with difficulty breathing. EMS was called. Upon EMS' arrival to home he was found to be hypertensive with SBP in 200's, febrile, and tachy cardic with audible wheezing. He was given albuterol nebulizer treatment. 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 Otherwise, the CTA of the head appears unremarkable CTA neck with and without contrast: There is mild calcified plaque involving the proximal left ICA. However, there no CTA evidence of significant stenosis involving cervical carotid or vertebral arteries by NASCET criteria. CXR: There is mild increase in interstitial markings bilaterally likely representing mild edema.. Sepsis -Tachycardic -TTE planned for today -LP done, doubt meningitis from preliminary studies, isolation discontinued -Tmax 104.8 yesterday and better -Lactic acid on admission 2.9 ( trending up now 3.90) -Received IV fluid resuscitation -GPC bactermia -Blood and urine cultures pending -On IV ABX UTI -Urine WBC 10.0 -Urine culture pending -On IV Abx Pneumonia -CXR shows mild increase in interstitial markings bilaterally -Blood Cultures pending -Start on IV Abx Acute encephalopathy -Likely due to Sepsis or possibly seizure -Evaluated by Dr. Slaughter (tele-neurology) -Neuro Checks -Continue to monitor -Neurology consulted Suspicion of Seizure s/p CVA -No history of prior seizure disorder -Not a candidate for TPA; asked normal normal 07/28 @0 -Received Keppra in the ED -On Keppra - EEG pending -Ativan when necessary -Initiate seizure precautions -IV Ativan when necessary -Neurology consulted Hypertension -Continue to monitor BP -Resume home antihypertensive meds to optimize BP History of CVA -Hemorrhagic CVA 11/2018 -Ischemic CVA 02/2019 -Right-sided residual deficits -PT/OT eval pending -Continue aspirin and statin therapy Elevated troponin -Troponin elevated at 0.170 -Will continue to trend - Cardiology input noted -Repeat echo pending due to hx of arotic regurgitation Elevated d-dimer -D-dimer elevated at 1354.97 -V/Q scan pending Thrombocytosis JAK2 positive DVT PPX -SCD's -Will defer anticoagulation to hematology Spoke to family who state that the patient sometimes may walk, some times talk, but declined in the last few months, concerned for aspiration as patient has been eating some History Interval history: Patient seen and examined, more responsive today than yesterday but still lethargic. Family at bedside. Patient gave me thumbs Hospitalist Physical - Physical exam Narrative exam: General appearance: Present: Distress, drowsy, nonverbal, well-developed, well- nourished, middle-aged - EENT Eyes: Present: PERRL, mild left facial droop improved from yesterday ENT: normal dentition, gold tooth - Neck Neck: Present: supple, normal ROM - Respiratory Respiratory effort: Non-labored Respiratory: Diminished - Cardiovascular Heart rate: 140(bpm) Rhythm: ST Heart Sounds: Present: S1 & S2. Absent: rub, click - Extremities Extremities: no ischemia, pulses intact, - Peripheral Assessment Peripheral Pulses: within normal limits - Abdominal General gastrointestinal: soft, non-tender, normal bowel sounds - Integumentary Integumentary: Present: warm, dry - Musculoskeletal Musculoskeletal: generalized weakness, right-sided residual deficits at baseline -Neurological Neurological: awake, oriented x 2 - Psychiatric Psychiatric: flat affect - Constitutional Vitals: Temp Pulse Resp BP Pulse Ox 97.8 F 69 16 103/58 100 07/30/19 07:59 07/30/19 09:56 07/30/19 07:59 07/30/19 09:56 07/30/19 10:31 General appearance: Present: no acute distress Results - Labs CBC & Chem 7: 07/30/19 05:15 07/30/19 05:15 Labs: Laboratory Last Values WBC 12.4 K/mm3 (4.5-11.0) H 07/30/19 05:15 RBC 2.34 M/mm3 (3.65-5.03) L 07/30/19 05:15 Hgb 8.2 gm/dl (11.8-15.2) L 07/30/19 05:15 Hct 25.1 % (35.5-45.6) L D 07/30/19 05:15 MCV 107 fl (84-94) H 07/30/19 05:15 MCH 35 pg (28-32) H 07/30/19 05:15 MCHC 33 % (32-34) 07/30/19 05:15 RDW 25.3 % (13.2-15.2) H 07/30/19 05:15 Plt Count 203 K/mm3 (140-440) 07/30/19 05:15 Add Manual Diff Complete 07/29/19 00:42 Total Counted 100 07/29/19 00:42 Seg Neuts % (Manual) 82.0 % (40.0-70.0) H 07/29/19 00:42 0 % 07/29/19 00:42 16.0 % (13.4-35.0) 07/29/19 00:42 Reactive Lymphs % (Man) 0 % 07/29/19 00:42 1.0 % (0.0-7.3) 07/29/19 00:42 0 % (0.0-4.3) 07/29/19 00:42 1.0 % (0.0-1.8) 07/29/19 00:42 0 % 07/29/19 00:42 0 % 07/29/19 00:42 0 % 07/29/19 00:42 0 % 07/29/19 00:42 Nucleated RBC % Not Reportable 07/29/19 00:42 Seg Neutrophils # Man 1.6 K/mm3 (1.8-7.7) L 07/29/19 00:42 Band Neutrophils # 0.0 K/mm3 07/29/19 00:42 0.3 K/mm3 (1.2-5.4) L 07/29/19 00:42 Abs React Lymphs (Man) 0.0 K/mm3 07/29/19 00:42 0.0 K/mm3 (0.0-0.8) 07/29/19 00:42 0.0 K/mm3 (0.0-0.4) 07/29/19 00:42 0.0 K/mm3 (0.0-0.1) 07/29/19 00:42 0.0 K/mm3 07/29/19 00:42 0.0 K/mm3 07/29/19 00:42 0.0 K/mm3 07/29/19 00:42 Blast Cells # 0.0 K/mm3 07/29/19 00:42 WBC Morphology Not Reportable 07/29/19 00:42 Hypersegmented Neuts Not Reportable 07/29/19 00:42 Hyposegmented Neuts Not Reportable 07/29/19 00:42 Hypogranular Neuts Not Reportable 07/29/19 00:42 Not Reportable 07/29/19 00:42 Not Reportable 07/29/19 00:42 Not Reportable 07/29/19 00:42 Not Reportable 07/29/19 00:42 Not Reportable 07/29/19 00:42 Not Reportable 07/29/19 00:42 Not Reportable 07/29/19 00:42 Not Reportable 07/29/19 00:42 Plt Clumps, EDTA Not Reportable 07/29/19 00:42 Not Reportable 07/29/19 00:42 Not Reportable 07/29/19 00:42 Not Reportable 07/29/19 00:42 Plt Morphology Comment Not Reportable 07/29/19 00:42 RBC Morphology Not Reportable 07/29/19 00:42 Dimorphic RBCs Not Reportable 07/29/19 00:42 Not Reportable 07/29/19 00:42 Not Reportable 07/29/19 00:42 Not Reportable 07/29/19 00:42 2+ 07/29/19 00:42 Not Reportable 07/29/19 00:42 Not Reportable 07/29/19 00:42 Not Reportable 07/29/19 00:42 Not Reportable 07/29/19 00:42 Not Reportable 07/29/19 00:42 Not Reportable 07/29/19 00:42 Not Reportable 07/29/19 00:42 Not Reportable 07/29/19 00:42 Not Reportable 07/29/19 00:42 Not Reportable 07/29/19 00:42 Not Reportable 07/29/19 00:42 Not Reportable 07/29/19 00:42 Not Reportable 07/29/19 00:42 Not Reportable 07/29/19 00:42 Not Reportable 07/29/19 00:42 Acanthocytes (Spur) Not Reportable 07/29/19 00:42 Rouleaux Not Reportable 07/29/19 00:42 Not Reportable 07/29/19 00:42 Not Reportable 07/29/19 00:42 Not Reportable 07/29/19 00:42 Not Reportable 07/29/19 00:42 Hem Pathologist Commnt No 07/29/19 00:42 PT 13.8 Sec. (12.2-14.9) 07/29/19 00:42 INR 1.09 (0.87-1.13) 07/29/19 00:42 APTT 26.5 Sec. (24.2-36.6) 07/29/19 00:42 17.2 Sec. (15.1-19.6) 07/29/19 00:42 1354.97 ng/mlDDU (0-234) H 07/29/19 00:42 Sodium 142 mmol/L (137-145) 07/30/19 05:15 Potassium 4.0 mmol/L (3.6-5.0) 07/30/19 05:15 Chloride 109.3 mmol/L (98-107) H 07/30/19 05:15 Carbon Dioxide 23 mmol/L (22-30) 07/30/19 05:15 14 mmol/L 07/30/19 05:15 BUN 24 mg/dL (9-20) H 07/30/19 05:15 1.0 mg/dL (0.8-1.5) 07/30/19 05:15 Estimated GFR > 60 ml/min 07/30/19 05:15 24 % 07/30/19 05:15 Glucose 119 mg/dL (75-100) H 07/30/19 05:15 POC Glucose 124 (70-105) H 07/30/19 07:32 Lactic Acid 1.80 mmol/L (0.7-2.0) 07/29/19 12:58 Calcium 8.3 mg/dL (8.4-10.2) L 07/30/19 05:15 184 units/L (55-170) H 07/29/19 12:58 CK-MB (CK-2) 2.8 ng/mL (0.0-4.0) 07/29/19 12:58 CK-MB (CK-2) Rel Index 1.5 (0-4) 07/29/19 12:58 0.114 ng/mL (0.00-0.029) H* D 07/29/19 10:44 NT-Pro-B Natriuret Pep 1767 pg/mL (0-900) H 07/29/19 02:03 Triglycerides TNR 07/29/19 00:42 Cholesterol TNR 07/29/19 00:42 TNR 07/29/19 00:42 TNR 07/29/19 00:42 TNR 07/29/19 00:42 Yellow (Yellow) 07/29/19 01:50 Slightly-cloudy (Clear) 07/29/19 01:50 5.0 (5.0-7.0) 07/29/19 01:50 Ur Specific [place] 1.017 (1.003-1.030) 07/29/19 01:50 100 mg/dl mg/dL (Negative) 07/29/19 01:50 Neg mg/dL (Negative) 07/29/19 01:50 Neg mg/dL (Negative) 07/29/19 01:50 Mod (Negative) 07/29/19 01:50 Pos (Negative) 07/29/19 01:50 Neg (Negative) 07/29/19 01:50 2.0 mg/dL (<2.0) 07/29/19 01:50 Ur Leukocyte Esterase Tr (Negative) 07/29/19 01:50 10.0 /HPF (0.0-6.0) H 07/29/19 01:50 41.0 /HPF (0.0-6.0) 07/29/19 01:50 U Epithel Cells (Auto) 1.0 /HPF (0-13.0) 07/29/19 01:50 2+ /HPF (Negative) 07/29/19 01:50 Few /HPF 07/29/19 01:50 Clear 07/30/19 12:00 Colorless 07/30/19 12:00 3 /mm3 (1-10) 07/30/19 12:00 75 /mm3 (0-0) 07/30/19 12:00 CSF Seg Neutrophils 5.6 % (0-6) 07/30/19 12:00 88.9 % (40-80) 07/30/19 12:00 CSF Reactive Lymphs 0 % 07/30/19 12:00 5.6 % (15-45) 07/30/19 12:00 0 % 07/30/19 12:00 0 % 07/30/19 12:00 C 07/30/19 12:00 64 mg/dL 07/30/19 12:00 31 mg/dL 07/30/19 12:00 Active Medications - Current Medications Current Medications: Generic Name Dose Route Start Last Admin Trade Name Freq PRN Reason Stop Dose Admin Acetaminophen 650 mg 07/29/19 05:29 Tylenol PO Q4H PRN Pain, Mild (1-3), fever 100.5> Acetaminophen/Hydrocodone Bitart 1 each 07/29/19 21:50 [place] 5/325 PO Q4H PRN Pain, Moderate (4-6) Lipase/Protease/Amylase 1 each 07/29/19 14:[address] 10,500 Unit FEEDTUBE PRN PRN For Clogged Feeding Tube Aspirin 325 mg 07/29/19 10:00 07/30/19 10:39 Aspirin PO Not Given QDAY LESLIE Atorvastatin Calcium 80 mg 07/29/19 22:00 07/29/19 21:32 Lipitor PO 80 mg QHS LESLIE Administration Bisacodyl 10 mg 07/29/19 05:29 Dulcolax NC QDAY PRN Constipation Levetiracetam 1,000 mg/ 110 mls @ 400 mls/hr 07/29/19 10:00 07/30/19 09:54 Dextrose IV 400 mls/hr Q12HR LESLIE Administration Sodium Chloride 1,000 mls @ 125 mls/hr 07/29/19 13:00 07/30/19 03:39 Nacl 0.9% 1000 Ml IV 125 mls/hr DIRECT LESLIE Administration Vancomycin HCl 1,500 mg/ 530 mls @ 333.333 mls/hr 07/30/19 10:00 07/30/19 09:54 Sodium Chloride IV 333.333 mls/hr Q12HR LESLIE Administration Ceftriaxone Sodium 2 gm in 100 mls @ 200 mls/hr 07/30/19 15:00 Rocephin/Ns 2 Gm/100 Ml IV Q24H LESLIE Protocol Lisinopril 20 mg 07/29/19 10:00 07/30/19 09:56 Zestril PO Not Given QDAY LESLIE Lorazepam 1 mg 07/29/19 06:42 Ativan IV Q4H PRN Seizures Magnesium Hydroxide 30 ml 07/29/19 05:29 Milk Of Magnesia PO Q4H PRN Constipation Metoprolol Tartrate 50 mg 07/29/19 10:00 07/30/19 09:55 Lopressor PO 50 mg BID LESLIE Administration Ondansetron HCl 4 mg 07/29/19 05:29 Zofran IV Q6H PRN Nausea And Vomiting Simple Syrup 15 ml 07/29/19 14:30 Simple Syrup FEEDTUBE PRN PRN Hypoglycemia Simple Syrup 30 ml 07/29/19 14:30 Simple Syrup FEEDTUBE PRN PRN Hypoglycemia Sodium Bicarbonate 325 mg 07/29/19 14:30 Sodium Bicarbonate FEEDTUBE PRN PRN For Clogged Feeding Tube Sodium Chloride 10 ml 07/29/19 05:29 Sodium Chloride Flush Syringe 10 Ml IV PRN PRN LINE FLUSH Nutrition/Malnutrition Assess - Dietary Evaluation Nutrition/Malnutrition Findings: Nutrition Notes Start: 07/29/19 14:00 Freq: Status: Active Protocol: Document 07/29/19 14:00 RM (Rec: 07/29/19 14:30 RM [id number]) Nutrition Notes Need for Assessment generated from: MD Order Initial or Follow up Assessment Current Diagnosis COPD,Sepsis,Hypertension, Hyperlipidemia Other Pertinent Diagnosis Hx CVA X 2, Nonverbal,UTI,Pneu Current Diet NPO Labs/Tests Reviewed Pertinent Medications Reviewed Height 5 ft 9 in Weight 83.9 kg [place] Body Weight (kg) 72.72 BMI 27.3 Subjective/Other Information Consulted for TF recommendation. Screened for chewing difficulty. Burn Absent Trauma Absent #1 Nutrition Diagnosis Inadequate oral intake Etiology Hx CVA X 2 As Evidenced by Signs and Symptoms NPO status Is patient on ventilator? No Is Patient Ambulatory and/or Out of Bed No REE-([facility]-confined to bed) 2013.336 Calculation Used for Recommendations [facility] Additional Notes Protein Needs: 126-143g (1.5-1 .7g/kg) Fluid Needs: 1 ml/kcal Nutrition Intervention Nutrition Support: Jevity 1.2 at 75 ml/hr Water flush of 150 mls q 4 hrs Kcal 2,160 Protein (gm) 100 Fluid (mL) 1,453 Goal #1 TF tolerance Goal #2 Meet at least 75% of calorie and protein needs via TF Anticipated Discharge Needs: Unable to determine at this time Follow-Up By: 07/31/19 Additional Comments Follow for new TF
[2019-07-30] MEDS ORDERED: ROCEPHIN/NS 2 GM/100 ML 2 GM/100 ML BAG IV SCH (15:00)
--- NOTE | 2019-07-30 17:04 | Event Note ---
Date: 07/30/19 Echocardiogram shows: 1. Mitral valve vegetation. 2. Moderate MR. 3. Normal LV function EF 55-60%. 4. Mild-moderate AR. Patient is currently on broadspectrum antibiotics, we will communicate echo findings to ID.
[2019-07-31] MEDS: NACL 0.9% 1000 ML 1,000 ML IV SCH (05:11)
[2019-07-31 05:51] LABS: Hemoglobin 9.1 gm/dl (11.8-15.2); Mean Corpuscular HGB Conc 34 % (32-34); Mean Corpuscular Volume 107 fl (84-94); Platelet Count 210 K/mm3 (140-440); Red Blood Count 2.54 M/mm3 (3.65-5.03)
[2019-07-31 06:08] LABS: Red Cell Distribution Width 25.1 % (13.2-15.2)
[2019-07-31 06:11] LABS: BUN/Creatinine Ratio 15; Blood Urea Nitrogen 12 mg/dL (9-20); Calcium 8.8 mg/dL (8.4-10.2); Hemolysis Index 0
--- NOTE | 2019-07-31 07:34 | Hem/Onc Progress Note ---
Assessment and Plan 1. Unresponsiveness, history of fever. ID team following. 2. JAK2 mutation. The patient was on hydroxyurea, white cell count was low, Hydrea has been held. 3. History of chronic obstructive pulmonary disease. 4. History of hypertension. 5. History of hyperlipidemia. 6. History of cerebrovascular accident. 7. History of left renal cell cancer removal. 8. V/Q scan is negative for pulmonary embolism. 9. Lumbar puncture was ordered by ID. 10. I will follow the patient during inpatient stay. I will get more i nformation as to who is his clinical geneticist outside. pt awake - but speech slurred follows command of moving legs and opening mouth as per old notes - pt had been with Dr Frankel He was admitted to [facility] in feb 2019 - with CVA 07/31 - d/w dr ambrose - CT head planned - Patient Problems (1) Myeloproliferative disease Current Visit: No Status: Acute Subjective Date of service: 07/31/19 Principal diagnosis: CMPD Interval history: awake - slurred speech Objective - Exam Narrative Exam: Pain - n/a General appearance - awake - but slurred speech Performance status complete dependence Eyes - no icterus ENT - no bleeding LNs cervical not palpable Neck - no LN Respiratory Normal Breath sounds - CTA anteriorly CVS S1 S2 + Extremities no calf tenderness General GI Soft Rectal deferred male - deferred Skin warm Musculoskeletal moving extremitites Neurologically awake - slurred speech - Constitutional Vitals: Last Vital Signs Temp 97.3 F L 07/31/19 04:33 Pulse 79 07/31/19 04:33 Resp 20 07/31/19 04:33 BP 126/72 07/31/19 04:33 Pulse Ox 95 07/31/19 04:33 - Labs Lab Results: Laboratory Results - last 24 hr 07/30/19 07/30/19 07/30/19 07:32 12:00 12:00 WBC RBC Hgb Hct MCV MCH MCHC RDW Plt Count Sodium Potassium Chloride Carbon Dioxide Anion Gap BUN Creatinine Estimated GFR BUN/Creatinine Ratio Glucose POC Glucose 124 H Calcium CSF Appearance Clear CSF Color Colorless CSF WBC 3 CSF RBC 75 CSF Seg Neutrophils 5.6 CSF Lymphocytes % 88.9 CSF Reactive Lymphs 0 CSF Monocytes % 5.6 CSF Eosinophils % 0 CSF Basophils 0 CSF Pathologist Review C CSF Glucose 64 CSF Total Protein 31 07/30/19 07/30/19 07/31/19 16:34 21:16 03:47 WBC 9.5 RBC 2.54 L Hgb 9.1 L Hct 27.0 L MCV 107 H MCH 36 H MCHC 34 RDW 25.1 H Plt Count 210 Sodium Potassium Chloride Carbon Dioxide Anion Gap BUN Creatinine Estimated GFR BUN/Creatinine Ratio Glucose POC Glucose 95 129 H Calcium CSF Appearance CSF Color CSF WBC CSF RBC CSF Seg Neutrophils CSF Lymphocytes % CSF Reactive Lymphs CSF Monocytes % CSF Eosinophils % CSF Basophils CSF Pathologist Review CSF Glucose CSF Total Protein 07/31/19 03:47 WBC RBC Hgb Hct MCV MCH MCHC RDW Plt Count Sodium 140 Potassium 4.1 Chloride 105.5 Carbon Dioxide 25 Anion Gap 14 BUN 12 Creatinine 0.8 Estimated GFR > 60 BUN/Creatinine Ratio 15 Glucose 116 H POC Glucose Calcium 8.8 CSF Appearance CSF Color CSF WBC CSF RBC CSF Seg Neutrophils CSF Lymphocytes % CSF Reactive Lymphs CSF Monocytes % CSF Eosinophils % CSF Basophils CSF Pathologist Review CSF Glucose CSF Total Protein Medications & Allergies - Medications Allergies/Adverse Reactions: Allergies No Known Allergies Allergy (Unverified 07/17/14 19:25) Home Medications: Home Medications Medication Instructions Recorded Confirmed Last Taken Type Metoprolol Tartrate 50 mg PO BID 03/05/19 07/29/19 07/28/19 History QUEtiapine 50 mg PO DAILY 03/05/19 07/29/19 Unknown History Aspirin 325 mg PO QDAY tablet 03/11/19 07/29/19 07/29/19 17:39 Rx AtorvaSTATin [Lipitor] 80 mg PO QHS tablet 03/11/19 07/29/19 Unknown Rx Hydroxyurea [Hydrea] 500 mg PO QDAY capsule 03/11/19 07/29/19 07/28/19 Rx Lisinopril [Zestril TAB] 20 mg PO QDAY tablet 03/11/19 07/29/19 Unknown Rx traZODone [Desyrel] 50 mg PO QDAY PRN tablet 03/11/19 07/29/19 Unknown Rx Active Medications: Generic Name Dose Route Start Last Admin Trade Name Freq PRN Reason Stop Dose Admin Acetaminophen 650 mg 07/29/19 05:29 Tylenol PO Q4H PRN Pain, Mild (1-3), fever 100.5> Acetaminophen/Hydrocodone Bitart 1 each 07/29/19 21:50 [place] 5/325 PO Q4H PRN Pain, Moderate (4-6) Lipase/Protease/Amylase 1 each 07/29/19 14:30 Pancreaze 10,500 Unit FEEDTUBE PRN PRN For Clogged Feeding Tube Aspirin 325 mg 07/29/19 10:00 07/30/19 10:39 Aspirin PO Not Given QDAY LESLIE Atorvastatin Calcium 80 mg 07/29/19 22:00 07/30/19 21:41 Lipitor PO 80 mg QHS LESLIE Administration Bisacodyl 10 mg 07/29/19 05:29 Dulcolax [place] QDAY PRN Constipation Levetiracetam 1,000 mg/ 110 mls @ 400 mls/hr 07/29/19 10:00 07/30/19 21:40 Dextrose IV 400 mls/hr Q12HR LESLIE Administration Sodium Chloride 1,000 mls @ 125 mls/hr 07/29/19 13:00 07/31/19 05:11 Nacl 0.9% 1000 Ml IV 125 mls/hr DIRECT LESLIE Administration Vancomycin HCl 1,500 mg/ 530 mls @ 333.333 mls/hr 07/30/19 10:00 07/30/19 21:40 Sodium Chloride IV 333.333 mls/hr Q12HR LESLIE Administration Ceftriaxone Sodium 2 gm in 100 mls @ 200 mls/hr 07/30/19 15:00 07/30/19 16:12 Rocephin/Ns 2 Gm/100 Ml IV 200 mls/hr Q24H LESLIE Administration Protocol Lisinopril 20 mg 07/29/19 10:00 07/30/19 09:56 Zestril PO Not Given QDAY LESLIE Lorazepam 1 mg 07/29/19 06:42 Ativan IV Q4H PRN Seizures Magnesium Hydroxide 30 ml 07/29/19 05:29 Milk Of Magnesia PO Q4H PRN Constipation Metoprolol Tartrate 50 mg 07/29/19 10:00 07/30/19 21:41 Lopressor PO 50 mg BID LESLIE Administration Ondansetron HCl 4 mg 07/29/19 05:29 Zofran IV Q6H PRN Nausea And Vomiting Simple Syrup 15 ml 07/29/19 14:30 Simple Syrup FEEDTUBE PRN PRN Hypoglycemia Simple Syrup 30 ml 07/29/19 14:30 Simple Syrup FEEDTUBE PRN PRN Hypoglycemia Sodium Bicarbonate 325 mg 07/29/19 14:30 Sodium Bicarbonate FEEDTUBE PRN PRN For Clogged Feeding Tube Sodium Chloride 10 ml 07/29/19 05:29 Sodium Chloride Flush Syringe 10 Ml IV PRN PRN LINE FLUSH
--- NOTE | 2019-07-31 09:24 | Cat Scan Report ---
CT HEAD WITHOUT CONTRAST INDICATION : CVA. Noncommunicative. TECHNIQUE: Axial imaging performed from the skull apex through the skull base without the use of con trast. All CT scans at this location are performed using CT dose reduction for ALARA by means of aut omated exposure control. COMPARISON: 07/29/2019 FINDINGS: Parenchyma: No acute intracranial hemorrhage or parenchymal abnormality. Stable bilateral chronic th alamic and pontine lacunar infarcts. Stable chronic white matter microangiopathic change. Ventricles: Ventricles and sulci are slightly enlarged for age but unchanged since the last exam. Soft tissues: Soft tissues including the orbits appear normal. Bones: No acute osseous abnormality. Sinuses: Sinuses are clear. Stable opacification of left mastoid air cells. IMPRESSION: No acute abnormality. Signer Name: Ilya Posada MD Signed: 07/31/2019 9:20 AM Workstation Name: [id number]
--- NOTE | 2019-07-31 09:56 | Progress Note ---
Assessment and Plan Assessment and plan: 53-year-old -[place] male who is nonverbal with history of COPD, hypertension, thrombocytosis, JAK2 positive, CVA 2 (hemorrhagic 11/2018 and ischemic 02/2019) right-sided residual deficits, and HLD who presents to [facility] ED with complaints of altered mental status and difficulty breathing. He is unable to provide history history is provided by son (who is present at bedside) and via telephone and medical records. According to patient's family patient was transferred to [facility] and 2230. Approximately 1.5hours later he was found to be less responsive with difficulty breathing. EMS was called. Upon EMS' arrival to home he was found to be hypertensive with SBP in 200's, febrile, and tachy cardic with audible wheezing. He was given albuterol nebulizer treatment. 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 Otherwise, the CTA of the head appears unremarkable CTA neck with and without contrast: There is mild calcified plaque involving the proximal left ICA. However, there no CTA evidence of significant stenosis involving cervical carotid or vertebral arteries by NASCET criteria. CXR: There is mild increase in interstitial markings bilaterally likely representing mild edema.. ECHO: 1. Mitral valve vegetation. 2. Moderate MR. 3. Normal LV function EF 55-60%. 4. Mild-moderate AR. Sepsis -Tachycardic -LP done, doubt meningitis from preliminary studies, isolation discontinued - Mitral valve vegetation ?Endocarditis, await further review by ID -Tmax 104.8 NOTED -Lactic acid on admission 2.9 -Received IV fluid resuscitation -GPC bactermia -Blood and urine cultures pending -On IV ABX UTI -Urine WBC 10.0 -Urine culture pending -On IV Abx Pneumonia -CXR shows mild increase in interstitial markings bilaterally -Blood Cultures pending -Continue on IV Abx Acute encephalopathy -Likely due to Sepsis or possibly seizure -Evaluated by Dr. Slaughter (tele-neurology) -Neuro Checks -Continue to monitor -Neurology consulted and input noted. Possible seizure rather than CVA also as evidenced by CT head, with no acute cva noted Suspicion of Seizure -CT negtive for cva -No history of prior seizure disorder -Not a candidate for TPA; asked normal normal 07/28 @2230 -stop kEPPRA PER NEUROLOGY -On able to obtain MRI -On Keppra -Ativan when necessary -Initiate seizure precautions Hypertension -Continue to monitor BP -Resume home antihypertensive meds to optimize BP History of CVA -Hemorrhagic CVA 11/2018 -Ischemic CVA 02/2019 -Right-sided residual deficits -PT/OT eval pending -Continue aspirin and statin therapy Elevated troponin -Troponin elevated at 0.170 -Will continue to trend - Cardiology input noted -Repeat echo pending due to hx of arotic regurgitation Elevated d-dimer -D-dimer elevated at 1354.97 -V/Q scan negative for PE Thrombocytosis JAK2 positive DVT PPX -SCD's -Will defer anticoagulation to hematology Spoke to family who state that the patient sometimes may walk, some times talk, but declined in the last few months, concerned for aspiration as patient has been eating some History Interval history: Patient seen and examined, more responsive today than yesterday Family at bedside. Hospitalist Physical - Physical exam Narrative exam: General appearance: Present: Distress, drowsy, nonverbal, well-developed, well- nourished, middle-aged - EENT Eyes: Present: PERRL, mild left facial droop improved from yesterday ENT: normal dentition, gold tooth - Neck Neck: Present: supple, normal ROM - Respiratory Respiratory effort: Non-labored Respiratory: Diminished - Cardiovascular Heart rate: 140(bpm) Rhythm: ST Heart Sounds: Present: S1 & S2. Absent: rub, click - Extremities Extremities: no ischemia, pulses intact, - Peripheral Assessment Peripheral Pulses: within normal limits - Abdominal General gastrointestinal: soft, non-tender, normal bowel sounds - Integumentary Integumentary: Present: warm, dry - Musculoskeletal Musculoskeletal: generalized weakness, right-sided residual deficits at baseline -Neurological Neurological: awake, oriented x 2 - Psychiatric Psychiatric: flat affect - Constitutional Vitals: Temp Pulse Resp BP Pulse Ox 98.1 F 78 18 115/73 100 07/31/19 08:19 07/31/19 08:19 07/31/19 08:19 07/31/19 08:19 07/31/19 08:19 General appearance: Present: no acute distress Results - Labs CBC & Chem 7: 07/31/19 03:47 07/31/19 03:47 Labs: Laboratory Last Values WBC 9.5 K/mm3 (4.5-11.0) 07/31/19 03:47 RBC 2.54 M/mm3 (3.65-5.03) L 07/31/19 03:47 Hgb 9.1 gm/dl (11.8-15.2) L 07/31/19 03:47 Hct 27.0 % (35.5-45.6) L 07/31/19 03:47 MCV 107 fl (84-94) H 07/31/19 03:47 MCH 36 pg (28-32) H 07/31/19 03:47 MCHC 34 % (32-34) 07/31/19 03:47 RDW 25.1 % (13.2-15.2) H 07/31/19 03:47 Plt Count 210 K/mm3 (140-440) 07/31/19 03:47 Add Manual Diff Complete 07/29/19 00:42 Total Counted 100 07/29/19 00:42 Seg Neuts % (Manual) 82.0 % (40.0-70.0) H 07/29/19 00:42 0 % 07/29/19 00:42 16.0 % (13.4-35.0) 07/29/19 00:42 Reactive Lymphs % (Man) 0 % 07/29/19 00:42 1.0 % (0.0-7.3) 07/29/19 00:42 0 % (0.0-4.3) 07/29/19 00:42 1.0 % (0.0-1.8) 07/29/19 00:42 0 % 07/29/19 00:42 0 % 07/29/19 00:42 0 % 07/29/19 00:42 0 % 07/29/19 00:42 Nucleated RBC % Not Reportable 07/29/19 00:42 Seg Neutrophils # Man 1.6 K/mm3 (1.8-7.7) L 07/29/19 00:42 Band Neutrophils # 0.0 K/mm3 07/29/19 00:42 0.3 K/mm3 (1.2-5.4) L 07/29/19 00:42 Abs React Lymphs (Man) 0.0 K/mm3 07/29/19 00:42 0.0 K/mm3 (0.0-0.8) 07/29/19 00:42 0.0 K/mm3 (0.0-0.4) 07/29/19 00:42 0.0 K/mm3 (0.0-0.1) 07/29/19 00:42 0.0 K/mm3 07/29/19 00:42 0.0 K/mm3 07/29/19 00:42 0.0 K/mm3 07/29/19 00:42 Blast Cells # 0.0 K/mm3 07/29/19 00:42 WBC Morphology Not Reportable 07/29/19 00:42 Hypersegmented Neuts Not Reportable 07/29/19 00:42 Hyposegmented Neuts Not Reportable 07/29/19 00:42 Hypogranular Neuts Not Reportable 07/29/19 00:42 Not Reportable 07/29/19 00:42 Not Reportable 07/29/19 00:42 Not Reportable 07/29/19 00:42 Not Reportable 07/29/19 00:42 Not Reportable 07/29/19 00:42 Not Reportable 07/29/19 00:42 Not Reportable 07/29/19 00:42 Not Reportable 07/29/19 00:42 Plt Clumps, EDTA Not Reportable 07/29/19 00:42 Not Reportable 07/29/19 00:42 Not Reportable 07/29/19 00:42 Not Reportable 07/29/19 00:42 Plt Morphology Comment Not Reportable 07/29/19 00:42 RBC Morphology Not Reportable 07/29/19 00:42 Dimorphic RBCs Not Reportable 07/29/19 00:42 Not Reportable 07/29/19 00:42 Not Reportable 07/29/19 00:42 Not Reportable 07/29/19 00:42 2+ 07/29/19 00:42 Not Reportable 07/29/19 00:42 Not Reportable 07/29/19 00:42 Not Reportable 07/29/19 00:42 Not Reportable 07/29/19 00:42 Not Reportable 07/29/19 00:42 Not Reportable 07/29/19 00:42 Not Reportable 07/29/19 00:42 Not Reportable 07/29/19 00:42 Not Reportable 07/29/19 00:42 Not Reportable 07/29/19 00:42 Not Reportable 07/29/19 00:42 Not Reportable 07/29/19 00:42 Not Reportable 07/29/19 00:42 Not Reportable 07/29/19 00:42 Not Reportable 07/29/19 00:42 Acanthocytes (Spur) Not Reportable 07/29/19 00:42 Rouleaux Not Reportable 07/29/19 00:42 Not Reportable 07/29/19 00:42 Not Reportable 07/29/19 00:42 Not Reportable 07/29/19 00:42 Not Reportable 07/29/19 00:42 Hem Pathologist Commnt No 07/29/19 00:42 PT 13.8 Sec. (12.2-14.9) 07/29/19 00:42 INR 1.09 (0.87-1.13) 07/29/19 00:42 APTT 26.5 Sec. (24.2-36.6) 07/29/19 00:42 17.2 Sec. (15.1-19.6) 07/29/19 00:42 1354.97 ng/mlDDU (0-234) H 07/29/19 00:42 Sodium 140 mmol/L (137-145) 07/31/19 03:47 Potassium 4.1 mmol/L (3.6-5.0) 07/31/19 03:47 Chloride 105.5 mmol/L (98-107) 07/31/19 03:47 Carbon Dioxide 25 mmol/L (22-30) 07/31/19 03:47 14 mmol/L 07/31/19 03:47 BUN 12 mg/dL (9-20) 07/31/19 03:47 0.8 mg/dL (0.8-1.5) 07/31/19 03:47 Estimated GFR > 60 ml/min 07/31/19 03:47 15 % 07/31/19 03:47 Glucose 116 mg/dL (75-100) H 07/31/19 03:47 POC Glucose 136 (70-105) H 07/31/19 08:28 Lactic Acid 1.80 mmol/L (0.7-2.0) 07/29/19 12:58 Calcium 8.8 mg/dL (8.4-10.2) 07/31/19 03:47 184 units/L (55-170) H 07/29/19 12:58 CK-MB (CK-2) 2.8 ng/mL (0.0-4.0) 07/29/19 12:58 CK-MB (CK-2) Rel Index 1.5 (0-4) 07/29/19 12:58 0.114 ng/mL (0.00-0.029) H* D 07/29/19 10:44 NT-Pro-B Natriuret Pep 1767 pg/mL (0-900) H 07/29/19 02:03 Triglycerides TNR 07/29/19 00:42 Cholesterol TNR 07/29/19 00:42 TNR 07/29/19 00:42 TNR 07/29/19 00:42 TNR 07/29/19 00:42 Yellow (Yellow) 07/29/19 01:50 Slightly-cloudy (Clear) 07/29/19 01:50 5.0 (5.0-7.0) 07/29/19 01:50 Ur Specific Energy 1.017 (1.003-1.030) 07/29/19 01:50 100 mg/dl mg/dL (Negative) 07/29/19 01:50 Neg mg/dL (Negative) 07/29/19 01:50 Neg mg/dL (Negative) 07/29/19 01:50 Mod (Negative) 07/29/19 01:50 Pos (Negative) 07/29/19 01:50 Neg (Negative) 07/29/19 01:50 2.0 mg/dL (<2.0) 07/29/19 01:50 Ur Leukocyte Esterase Tr (Negative) 07/29/19 01:50 10.0 /HPF (0.0-6.0) H 07/29/19 01:50 41.0 /HPF (0.0-6.0) 07/29/19 01:50 U Epithel Cells (Auto) 1.0 /HPF (0-13.0) 07/29/19 01:50 2+ /HPF (Negative) 07/29/19 01:50 Few /HPF 07/29/19 01:50 Clear 07/30/19 12:00 Colorless 07/30/19 12:00 3 /mm3 (1-10) 07/30/19 12:00 75 /mm3 (0-0) 07/30/19 12:00 CSF Seg Neutrophils 5.6 % (0-6) 07/30/19 12:00 88.9 % (40-80) 07/30/19 12:00 CSF Reactive Lymphs 0 % 07/30/19 12:00 5.6 % (15-45) 07/30/19 12:00 0 % 07/30/19 12:00 0 % 07/30/19 12:00 C 07/30/19 12:00 64 mg/dL 07/30/19 12:00 31 mg/dL 07/30/19 12:00 Active Medications - Current Medications Current Medications: Generic Name Dose Route Start Last Admin Trade Name Freq PRN Reason Stop Dose Admin Acetaminophen 650 mg 07/29/19 05:29 Tylenol PO Q4H PRN Pain, Mild (1-3), fever 100.5> Acetaminophen/Hydrocodone Bitart 1 each 07/29/19 21:50 [place] 5/325 PO Q4H PRN Pain, Moderate (4-6) Lipase/Protease/Amylase 1 each 07/29/19 14:[address] 10,500 Unit FEEDTUBE PRN PRN For Clogged Feeding Tube Aspirin 325 mg 07/29/19 10:00 07/30/19 10:39 Aspirin PO Not Given QDAY LESLIE Atorvastatin Calcium 80 mg 07/29/19 22:00 07/30/19 21:41 Lipitor PO 80 mg QHS LESLIE Administration Bisacodyl 10 mg 07/29/19 05:29 Dulcolax [place] QDAY PRN Constipation Levetiracetam 1,000 mg/ 110 mls @ 400 mls/hr 07/29/19 10:00 07/30/19 21:40 Dextrose IV 400 mls/hr Q12HR LESLIE Administration Sodium Chloride 1,000 mls @ 125 mls/hr 07/29/19 13:00 07/31/19 05:11 Nacl 0.9% 1000 Ml IV 125 mls/hr DIRECT LESLIE Administration Vancomycin HCl 1,500 mg/ 530 mls @ 333.333 mls/hr 07/30/19 10:00 07/30/19 21:40 Sodium Chloride IV 333.333 mls/hr Q12HR LESLIE Administration Ceftriaxone Sodium 2 gm in 100 mls @ 200 mls/hr 07/30/19 15:00 07/30/19 16:12 Rocephin/Ns 2 Gm/100 Ml IV 200 mls/hr Q24H LESLIE Administration Protocol Lisinopril 20 mg 07/29/19 10:00 07/30/19 09:56 Zestril PO Not Given QDAY LESLIE Lorazepam 1 mg 07/29/19 06:42 Ativan IV Q4H PRN Seizures Magnesium Hydroxide 30 ml 07/29/19 05:29 Milk Of Magnesia PO Q4H PRN Constipation Metoprolol Tartrate 50 mg 07/29/19 10:00 07/30/19 21:41 Lopressor PO 50 mg BID LESLIE Administration Ondansetron HCl 4 mg 07/29/19 05:29 Zofran IV Q6H PRN Nausea And Vomiting Simple Syrup 15 ml 07/29/19 14:30 Simple Syrup FEEDTUBE PRN PRN Hypoglycemia Simple Syrup 30 ml 07/29/19 14:30 Simple Syrup FEEDTUBE PRN PRN Hypoglycemia Sodium Bicarbonate 325 mg 07/29/19 14:30 Sodium Bicarbonate FEEDTUBE PRN PRN For Clogged Feeding Tube Sodium Chloride 10 ml 07/29/19 05:29 Sodium Chloride Flush Syringe 10 Ml IV PRN PRN LINE FLUSH Nutrition/Malnutrition Assess - Dietary Evaluation Nutrition/Malnutrition Findings: Nutrition Notes Start: 07/29/19 14:00 Freq: Status: Active Protocol: Document 07/29/19 14:00 RM (Rec: 07/29/19 14:30 RM [id number]) Nutrition Notes Need for Assessment generated from: MD Order Initial or Follow up Assessment Current Diagnosis COPD,Sepsis,Hypertension, Hyperlipidemia Other Pertinent Diagnosis Hx CVA X 2, Nonverbal,UTI,Pneu Current Diet NPO Labs/Tests Reviewed Pertinent Medications Reviewed Height 5 ft 9 in Weight 83.9 kg [place] Body Weight (kg) 72.72 BMI 27.3 Subjective/Other Information Consulted for TF recommendation. Screened for chewing difficulty. Burn Absent Trauma Absent #1 Nutrition Diagnosis Inadequate oral intake Etiology Hx CVA X 2 As Evidenced by Signs and Symptoms NPO status Is patient on ventilator? No Is Patient Ambulatory and/or Out of Bed No REE-([facility]-confined to bed) 2013.336 Calculation Used for Recommendations [facility] Additional Notes Protein Needs: 126-143g (1.5-1 .7g/kg) Fluid Needs: 1 ml/kcal Nutrition Intervention Nutrition Support: Jevity 1.2 at 75 ml/hr Water flush of 150 mls q 4 hrs Kcal 2,160 Protein (gm) 100 Fluid (mL) 1,453 Goal #1 TF tolerance Goal #2 Meet at least 75% of calorie and protein needs via TF Anticipated Discharge Needs: Unable to determine at this time Follow-Up By: 07/31/19 Additional Comments Follow for new TF
--- NOTE | 2019-07-31 10:27 | Progress Note ---
<JW BOLES - Last Filed: 07/31/19 10:26> Assessment and Plan Sepsis head CT scan reports no acute abnormality. ventilation perfusion scan reports a low probability for PE. Hx of JAK2 mutation Hx of COPD Hypertension Prior CVA Elevation of troponin ECG is sinus tachycardia, no acute ischemic changes. An repeat echocardiogram this admission revealed: 1. Mitral valve vegetation. 2. Moderate MR. 3. Normal LV function EF 55-60%. 4. Mild-moderate AR. Conservative cardiac management. Subjective Date of service: 07/31/19 Principal diagnosis: CMPD Interval history: Patient is resting in bed comfortably. Family member is at the bedside. Objective Vital Signs Temp Pulse Pulse Resp BP Pulse Ox 07/31/19 08:19 98.1 F 78 18 115/73 100 07/31/19 08:00 20 100 07/31/19 04:33 97.3 F L 79 20 126/72 95 07/31/19 02:00 63 07/31/19 00:19 97.6 F 69 22 117/61 100 07/30/19 21:41 75 107/58 99 07/30/19 20:00 70 18 98 07/30/19 19:29 97.3 F L 18 107/58 07/30/19 18:21 97.5 F L 89 16 191/80 99 07/30/19 18:00 74 07/30/19 12:00 76 07/30/19 10:31 100 - Physical Examination General: No Apparent Distress HEENT: Positive: PERRL Neck: Positive: trachea midline Cardiac: Positive: Reg Rate and Rhythm Lungs: Positive: Decreased Breath Sounds Neuro: Positive: Weakness - Labs and Meds CBC 07/31/19 Range/Units 03:47 WBC 9.5 (4.5-11.0) K/mm3 RBC 2.54 L (3.65-5.03) M/mm3 Hgb 9.1 L (11.8-15.2) gm/dl Hct 27.0 L (35.5-45.6) % Plt Count 210 (140-440) K/mm3 Comprehensive Metabolic Panel 07/31/19 Range/Units 03:47 Sodium 140 (137-145) mmol/L Potassium 4.1 (3.6-5.0) mmol/L Chloride 105.5 (98-107) mmol/L Carbon Dioxide 25 (22-30) mmol/L BUN 12 (9-20) mg/dL Creatinine 0.8 (0.8-1.5) mg/dL Glucose 116 H (75-100) mg/dL Calcium 8.8 (8.4-10.2) mg/dL <ANA PORTILLO - Last Filed: 07/31/19 12:27> Assessment and Plan I've seen and evaluated the patient and agree with the assessment and plan. Patient has a history of Don 2 mutation, COPD, hypertension, prior CVA and sepsis. Patient had an echocardiogram done this hospitalization which shows presence of a mitral valve vegetation, moderate mitral regurgitation, normal left ventricular function with ejection fraction of 55-60%. Infectious disease is following for management of antibiotic therapy. Objective Vital Signs Temp Pulse Pulse Resp BP Pulse Ox 07/31/19 11:09 99 07/31/19 10:00 78 07/31/19 08:19 98.1 F 78 18 115/73 100 07/31/19 08:00 20 100 07/31/19 04:33 97.3 F L 79 20 126/72 95 07/31/19 02:00 63 07/31/19 00:19 97.6 F 69 22 117/61 100 07/30/19 21:41 75 107/58 99 07/30/19 20:00 70 18 98 07/30/19 19:29 97.3 F L 18 107/58 07/30/19 18:21 97.5 F L 89 16 191/80 99 07/30/19 18:00 74 - Labs and Meds CBC 07/31/19 Range/Units 03:47 WBC 9.5 (4.5-11.0) K/mm3 RBC 2.54 L (3.65-5.03) M/mm3 Hgb 9.1 L (11.8-15.2) gm/dl Hct 27.0 L (35.5-45.6) % Plt Count 210 (140-440) K/mm3 Comprehensive Metabolic Panel 07/31/19 Range/Units 03:47 Sodium 140 (137-145) mmol/L Potassium 4.1 (3.6-5.0) mmol/L Chloride 105.5 (98-107) mmol/L Carbon Dioxide 25 (22-30) mmol/L BUN 12 (9-20) mg/dL Creatinine 0.8 (0.8-1.5) mg/dL Glucose 116 H (75-100) mg/dL Calcium 8.8 (8.4-10.2) mg/dL
[2019-07-31] MEDS: ZESTRIL PO SCH (11:08)
[2019-07-31] MEDS: VANCOMYCIN 1,500 MG in NACL 0.9% 500 ML 500 ML IV SCH ×2 (11:25→21:41)
[2019-07-31] MEDS: ASPIRIN PO SCH (11:26)
[2019-07-31] MEDS: METOPROLOL PO SCH ×2 (11:26→21:41)
--- NOTE | 2019-07-31 12:04 | Magnetic Resonance Report ---
MR brain wo con INDICATION / CLINICAL INFORMATION: 53 years Male; MAIN: seizure, AMS, STROKE. TECHNIQUE: Multiplanar, multisequence MR images of the brain were obtained. Significant motion artifact. COMPARISON: 07/31/2019 - CT FINDINGS: BRAIN / INTRACRANIAL CONTENTS: Small craniotomy site seen in the right frontal bone, with prior crani otomy tract seen in the superior frontal gyral region on the right. In addition, there is an old hemorrhagic infarct in the left thalamic region. Mild cerebral and cerebellar atrophy. There are moderate, confluent areas of increased signal intensity on FLAIR imaging in the white matte r of the cerebral hemispheres, as well as the gangliocapsular regions. These are nonspecific findings and may be related to microangiopathy (hypertension, diabetes, atherosclerosis), given the patient's age. Multiple lacunar infarcts seen in the zeynep as well. Otherwise, no acute ischemia, acute hemorrhage, or hydrocephalus. CRANIOCERVICAL JUNCTION: No significant abnormality. VASCULAR FLOW-VOIDS: No significant abnormality. ORBITS: No significant abnormality of visualized orbits. SINUSES / MASTOIDS: Mild to moderate mucosal thickening seen in the ethmoids and sphenoids. There is partial opacification of the mastoids-left greater than right. ADDITIONAL FINDINGS: None. IMPRESSION: 1. No focal mass, acute hemorrhage, hydrocephalus, or acute ischemia. Signer Name: Marcelo Marrero MD, III Signed: 07/31/2019 11:59 AM Workstation Name: [id number]
--- NOTE | 2019-07-31 13:18 | Progress Note ---
Assessment and Plan Cultures: 07/29/2019 Blood culture: GPC in 2 sets Urine culture: mixed growth A/P: 53-year-old male with JAK2 mutation, COPD, hypertension, prior CVA admitted with: 1) Sepsis, leukopenia on admission, now leucocytosis, and acute encephalopathy: from Enterococcus endocarditis. TTE showed mitral valve vegetation. LP unremarkable. 2) Acute mitral valve endocarditis with Enterococcus: TTE showed mitral valve vegetation. 3) UTI: is possible given mild pyuria in the setting of leucopenia. Culture with mixed growth. Stop Ceftriaxone today. Recs: d/celeste Ceftriaxone continue IV Vancomycin, target trough:10-15 mcg/ml cardiology consult, will also need CT surgery consult given findings of MR and vegetation follow up blood culture ID follow up repeat blood cultures to ensure clearance depending on Enterococcus spp, will decide final abx regimen D/W Dr. Chance Salas MD, FACP [facility] ([facility] C: [phone] O: [phone] F: [phone] Subjective Date of service: 07/31/19 Principal diagnosis: CMPD Interval history: No fever. Denies any complaints. Poor historian. Objective - Exam Narrative Exam: Physical Exam: Constitutional: awake, no distress, sitting up in bed Head, Ears, Nose: Normocephalic, atraumatic. External ears, nose normal Eyes: Conjunctivae/corneas clear. No icterus. No ptosis. Neck: supple, no meningeal signs Cardiovascular: S1, S2 normal. Respiratory: Good air entry, clear to auscultation bilaterally GI: Soft, non-tender; bowel sounds normal. No peritoneal signs Musculoskeletal: No pedal edema, no cyanosis. Skin: No rash or abscess Hem/Lymphatic: No palpable cervical or supraclavicular nodes. No lymphangitis Psych: pleasant mood, no agitation Neurological: awake, dysarthria + - Constitutional Vitals: Vital Signs Temp Pulse Resp BP Pulse Ox 98.1 F 78 18 115/73 99 07/31/19 08:19 07/31/19 10:00 07/31/19 08:19 07/31/19 08:19 07/31/19 11:09 Temperature -Last 24 Hours Temperature 98.1 F Temperature 97.3 F Temperature 97.6 F Temperature 97.3 F Temperature 97.5 F - Labs CBC & Chem 7: 07/31/19 03:47 07/31/19 03:47 Labs: Abnormal lab results 07/30/19 07/31/19 07/31/19 Range/Units 21:16 03:47 03:47 RBC 2.54 L (3.65-5.03) M/mm3 Hgb 9.1 L (11.8-15.2) gm/dl Hct 27.0 L (35.5-45.6) % MCV 107 H (84-94) fl MCH 36 H (28-32) pg RDW 25.1 H (13.2-15.2) % Glucose 116 H (75-100) mg/dL POC Glucose 129 H (70-105) 07/31/19 Range/Units 08:28 RBC (3.65-5.03) M/mm3 Hgb (11.8-15.2) gm/dl Hct (35.5-45.6) % MCV (84-94) fl MCH (28-32) pg RDW (13.2-15.2) % Glucose (75-100) mg/dL POC Glucose 136 H (70-105)
--- NOTE | 2019-07-31 13:22 | Fluoroscopy Report ---
MODIFIED BARIUM SWALLOW INDICATION: dysphagia TECHNIQUE: Swallowing was evaluated in the lateral position under direct fluoroscopy. FINDINGS: The patient was evaluated with thin liquids, puree and semisolid consistency.. Deglutition appeared normal. There is no evidence for aspiration or penetration. No vallecular stasis is appreciated. Please correlate with the formal report by speech therapy. IMPRESSION: Unremarkable exam. Fluoroscopic time: 0.7 minutes Number of fluoroscopic images: 1 Signer Name: Dawson Carvajal Jr, MD Signed: 07/31/2019 1:18 PM Workstation Name: [id number]
--- NOTE | 2019-07-31 17:48 | Progress Note ---
Assessment and Plan This is a 53 YO M with history of recent strokes who presented to the ED with AMS, found to have endocarditis. LP unremarkable REcommend: CT/CTA unremarkable, MRI Brain nothing acute Continue care for all medical issues as you are doing POC discussed with pt's Mrs. Gustafson via phone at the bedside Call with questions Subjective Date of service: 07/31/19 Principal diagnosis: CMPD Interval history: Awake and alert. No complaints. Objective - Vital Sign Vital Signs - 12hr 07/31/19 07/31/19 07/31/19 08:00 08:19 10:00 Temperature 98.1 F Pulse Rate 78 78 Respiratory 20 18 Rate Blood Pressure 115/73 O2 Sat by Pulse 100 100 Oximetry 07/31/19 07/31/19 07/31/19 11:09 15:50 17:43 Temperature 97.6 F Pulse Rate 70 73 Respiratory 18 Rate Blood Pressure 130/64 O2 Sat by Pulse 99 98 Oximetry - General Apperance Constitutional: comfortable - EENT EENT: mucous membranes moist - Respiratory Respiratory: lungs clear - Gastrointestinal Gastrointestinal: normoactive bowel sounds - Neurologic Cranial nerve examination: PERRL, EOMI, V1/V2/V3 grossly intact, tongue midline Detailed motor examination: grossly full strength in - Laboratory Findings CBC and BMP: 07/31/19 03:47 07/31/19 03:47 Abnormal Lab Findings: Abnormal Labs 07/29/19 07/29/19 07/29/19 00:42 00:42 00:48 WBC 2.0 L RBC 3.04 L Hgb 10.9 L Hct 31.9 L MCV 105 H MCH 36 H RDW 24.9 H Seg Neuts % (Manual) 82.0 H Seg Neutrophils # Man 1.6 L Lymphocytes # (Manual) 0.3 L D-Dimer 1354.97 H Chloride BUN Glucose POC Glucose Lactic Acid 2.90 H* Calcium Total Creatine Kinase Troponin T NT-Pro-B Natriuret Pep Urine WBC (Auto) 07/29/19 07/29/19 07/29/19 01:50 02:03 04:06 WBC RBC Hgb Hct MCV MCH RDW Seg Neuts % (Manual) Seg Neutrophils # Man Lymphocytes # (Manual) D-Dimer Chloride BUN Glucose POC Glucose Lactic Acid 3.90 H* Calcium Total Creatine Kinase Troponin T NT-Pro-B Natriuret Pep 1767 H Urine WBC (Auto) 10.0 H 07/29/19 07/29/19 07/29/19 04:06 04:06 04:46 WBC RBC Hgb Hct MCV MCH RDW Seg Neuts % (Manual) Seg Neutrophils # Man Lymphocytes # (Manual) D-Dimer Chloride BUN 29 H Glucose POC Glucose Lactic Acid 4.00 H* Calcium Total Creatine Kinase Troponin T 0.170 H* NT-Pro-B Natriuret Pep Urine WBC (Auto) 07/29/19 07/29/19 07/29/19 06:56 07:02 09:50 WBC RBC Hgb Hct MCV MCH RDW Seg Neuts % (Manual) Seg Neutrophils # Man Lymphocytes # (Manual) D-Dimer Chloride BUN Glucose POC Glucose 108 H Lactic Acid 3.90 H* Calcium Total Creatine Kinase Troponin T 0.148 H* NT-Pro-B Natriuret Pep Urine WBC (Auto) 07/29/19 07/29/19 07/29/19 10:44 10:44 11:29 WBC RBC Hgb Hct MCV MCH RDW Seg Neuts % (Manual) Seg Neutrophils # Man Lymphocytes # (Manual) D-Dimer Chloride BUN Glucose POC Glucose 117 H Lactic Acid 2.20 H* Calcium Total Creatine Kinase Troponin T 0.114 H* D NT-Pro-B Natriuret Pep Urine WBC (Auto) 07/29/19 07/30/19 07/30/19 12:58 05:15 05:15 WBC 12.4 H RBC 2.34 L Hgb 8.2 L Hct 25.1 L D MCV 107 H MCH 35 H RDW 25.3 H Seg Neuts % (Manual) Seg Neutrophils # Man Lymphocytes # (Manual) D-Dimer Chloride 109.3 H BUN 24 H Glucose 119 H POC Glucose Lactic Acid Calcium 8.3 L Total Creatine Kinase 184 H Troponin T NT-Pro-B Natriuret Pep Urine WBC (Auto) 07/30/19 07/30/19 07/31/19 07:32 21:16 03:47 WBC RBC 2.54 L Hgb 9.1 L Hct 27.0 L MCV 107 H MCH 36 H RDW 25.1 H Seg Neuts % (Manual) Seg Neutrophils # Man Lymphocytes # (Manual) D-Dimer Chloride BUN Glucose POC Glucose 124 H 129 H Lactic Acid Calcium Total Creatine Kinase Troponin T NT-Pro-B Natriuret Pep Urine WBC (Auto) 07/31/19 07/31/19 03:47 08:28 WBC RBC Hgb Hct MCV MCH RDW Seg Neuts % (Manual) Seg Neutrophils # Man Lymphocytes # (Manual) D-Dimer Chloride BUN Glucose 116 H POC Glucose 136 H Lactic Acid Calcium Total Creatine Kinase Troponin T NT-Pro-B Natriuret Pep Urine WBC (Auto)
[2019-08-01] MEDS: APRESOLINE IV PRN (05:19)
--- NOTE | 2019-08-01 06:21 | Hem/Onc Progress Note ---
Assessment and Plan 1. Unresponsiveness, history of fever. ID team following. 2. JAK2 mutation. The patient was on hydroxyurea, white cell count was low, Hydrea has been held. 3. History of chronic obstructive pulmonary disease. 4. History of hypertension. 5. History of hyperlipidemia. 6. History of cerebrovascular accident. 7. History of left renal cell cancer removal. 8. V/Q scan is negative for pulmonary embolism. 9. Lumbar puncture was ordered by ID. 10. I will follow the patient during inpatient stay. I will get more i nformation as to who is his supervisor landscape outside. pt awake - but speech slurred follows command of moving legs and opening mouth as per old notes - pt had been with Dr Frankel He was admitted to [facility] in feb 2019 - with CVA 08/01 - CT head done ID - Infective endocardititis pt was on hydrea for CMPD - this is on hold for now - Patient Problems (1) Myeloproliferative disease Current Visit: No Status: Acute Subjective Date of service: 08/01/19 Principal diagnosis: JAK2 - CMPD Interval history: awake - slurred speech Objective - Exam Narrative Exam: Pain - n/a General appearance - awake - but slurred speech Performance status complete dependence Eyes - no icterus ENT - no bleeding LNs cervical not palpable Neck - no LN Respiratory Normal Breath sounds - CTA anteriorly CVS S1 S2 + Extremities no calf tenderness General GI Soft Rectal deferred male - deferred Skin warm Musculoskeletal moving extremitites Neurologically awake - slurred speech - Constitutional Vitals: Last Vital Signs Temp 97.9 F 08/01/19 03:56 Pulse 78 08/01/19 05:19 Resp 18 08/01/19 03:56 BP 165/98 08/01/19 05:19 Pulse Ox 91 08/01/19 03:56 - Labs Lab Results: Laboratory Results - last 24 hr 07/31/19 08:28 POC Glucose 136 H Medications & Allergies - Medications Allergies/Adverse Reactions: Allergies No Known Allergies Allergy (Unverified 07/17/14 19:25) Home Medications: Home Medications Medication Instructions Recorded Confirmed Last Taken Type Metoprolol Tartrate 50 mg PO BID 03/05/19 07/29/19 07/28/19 History QUEtiapine 50 mg PO DAILY 03/05/19 07/29/19 Unknown History Aspirin 325 mg PO QDAY tablet 03/11/19 07/29/1919 17:39 Rx AtorvaSTATin [Lipitor] 80 mg PO QHS tablet 03/11/19 07/29/19 Unknown Rx Hydroxyurea [Hydrea] 500 mg PO QDAY capsule 03/11/19 07/29/19 07/28/19 Rx Lisinopril [Zestril TAB] 20 mg PO QDAY tablet 03/11/19 07/29/19 Unknown Rx traZODone [Desyrel] 50 mg PO QDAY PRN tablet 03/11/19 07/29/19 Unknown Rx Active Medications: Generic Name Dose Route Start Last Admin Trade Name Freq PRN Reason Stop Dose Admin Acetaminophen 650 mg 07/29/19 05:29 Tylenol PO Q4H PRN Pain, Mild (1-3), fever 100.5> Acetaminophen/Hydrocodone Bitart 1 each 07/29/19 21:50 [place] 5/325 PO Q4H PRN Pain, Moderate (4-6) Lipase/Protease/Amylase 1 each 07/29/19 14:[address] 10,500 Unit FEEDTUBE PRN PRN For Clogged Feeding Tube Aspirin 325 mg 07/29/19 10:00 07/31/19 11:26 Aspirin PO 325 mg QDAY LESLIE Administration Atorvastatin Calcium 80 mg 07/29/19 22:00 07/31/19 21:41 Lipitor PO 80 mg QHS LESLIE Administration Bisacodyl 10 mg 07/29/19 05:29 Dulcolax [place] QDAY PRN Constipation Hydralazine HCl 10 mg 08/01/19 05:00 08/01/19 05:19 Apresoline IV 10 mg Q4HR PRN Administration Hypertension Sodium Chloride 1,000 mls @ 125 mls/hr 07/29/19 13:00 07/31/19 05:11 Nacl 0.9% 1000 Ml IV 125 mls/hr DIRECT LESLIE Administration Vancomycin HCl 1,500 mg/ 530 mls @ 333.333 mls/hr 07/30/19 10:00 07/31/19 21:41 Sodium Chloride IV 333.333 mls/hr Q12HR LESLIE Administration Lisinopril 20 mg 07/29/19 10:00 07/31/19 11:08 Zestril PO Not Given QDAY LESLIE Lorazepam 1 mg 07/29/19 06:42 Ativan IV Q4H PRN Seizures Magnesium Hydroxide 30 ml 07/29/19 05:29 Milk Of Magnesia PO Q4H PRN Constipation Metoprolol Tartrate 50 mg 07/29/19 10:00 07/31/19 21:41 Lopressor PO 50 mg BID LESLIE Administration Ondansetron HCl 4 mg 07/29/19 05:29 Zofran IV Q6H PRN Nausea And Vomiting Simple Syrup 15 ml 07/29/19 14:30 Simple Syrup FEEDTUBE PRN PRN Hypoglycemia Simple Syrup 30 ml 07/29/19 14:30 Simple Syrup FEEDTUBE PRN PRN Hypoglycemia Sodium Bicarbonate 325 mg 07/29/19 14:30 Sodium Bicarbonate FEEDTUBE PRN PRN For Clogged Feeding Tube Sodium Chloride 10 ml 07/29/19 05:29 Sodium Chloride Flush Syringe 10 Ml IV PRN PRN LINE FLUSH
[2019-08-01 08:02] LABS: Iron 82 ug/dL (49-181); Total Iron Binding Capacity 224 mcg/dL (250-450)
--- NOTE | 2019-08-01 10:03 | Progress Note ---
<JW BOLES - Last Filed: 08/01/19 12:19> Assessment and Plan Sepsis head CT scan reports no acute abnormality. ventilation perfusion scan reports a low probability for PE. Hx of COPD Hypertension Prior CVA Elevation of troponin ECG is sinus tachycardia, no acute ischemic changes. An repeat echocardiogram this admission revealed: 1. Mitral valve vegetation. 2. Moderate MR. 3. Normal LV function EF 55-60%. 4. Mild-moderate AR. Subjective Date of service: 08/01/19 Principal diagnosis: JAK2 - CMPD Interval history: Patient is resting in bed comfortably. Objective Vital Signs Temp Pulse Pulse Resp BP Pulse Ox 08/01/19 07:30 97.5 F L 18 142/78 08/01/19 07:05 96 08/01/19 05:19 78 165/98 08/01/19 03:56 97.9 F 78 18 165/98 91 07/31/19 23:43 98.0 F 76 18 157/88 94 07/31/19 22:10 77 18 96 07/31/19 21:41 77 130/83 97 07/31/19 19:18 73 07/31/19 19:17 98.2 F 77 18 130/83 96 07/31/19 17:43 73 07/31/19 15:50 97.6 F 70 18 130/64 98 07/31/19 11:09 99 - Physical Examination General: No Apparent Distress HEENT: Positive: PERRL Neck: Positive: trachea midline Cardiac: Positive: Reg Rate and Rhythm Lungs: Positive: Decreased Breath Sounds Neuro: Positive: Weakness <ANMOL POE - Last Filed: 08/01/19 12:47> Assessment and Plan - Patient Problems (1) Endocarditis Current Visit: Yes Status: Acute Plan to address problem: Patient was admitted with fever and enterococcal sepsis, echocardiogram shows acute mitral valve endocarditis. There is moderate mitral regurgitation, and mild to moderate aortic regurgitation. The aortic regurgitation is chronic and was seen on prior echocardiogram 6 months ago. The patient is frail, not a candidate for aggressive CT surgical management. Recommended approach at this time is for 6 weeks of appropriate intravenous antibiotic therapy, after which we will repeat the echocardiogram with Doppler. Objective Vital Signs Temp Pulse Pulse Resp BP Pulse Ox 08/01/19 10:34 78 142/78 08/01/19 07:30 97.5 F L 18 142/78 08/01/19 07:05 96 08/01/19 05:19 78 165/98 08/01/19 03:56 97.9 F 78 18 165/98 91 07/31/19 23:43 98.0 F 76 18 157/88 94 07/31/19 22:10 77 18 96 07/31/19 21:41 77 130/83 97 07/31/19 19:18 73 07/31/19 19:17 98.2 F 77 18 130/83 96 07/31/19 17:43 73 07/31/19 15:50 97.6 F 70 18 130/64 98
[2019-08-01] MEDS: NORCO 5/325 PO PRN (10:32)
[2019-08-01] MEDS: METOPROLOL PO SCH ×2 (10:34→21:39)
[2019-08-01] MEDS: ASPIRIN PO SCH (10:34)
[2019-08-01] MEDS: ZESTRIL PO SCH (10:34)
[2019-08-01] MEDS: VANCOMYCIN 1,500 MG in NACL 0.9% 500 ML 500 ML IV SCH (10:34)
--- NOTE | 2019-08-01 12:46 | Progress Note ---
Assessment and Plan Cultures: 07/29/2019 Blood culture: Enterococcus faecalis Urine culture: mixed growth 07/30/2019 Blood culture: no growth at 24 hours A/P: 53-year-old male with JAK2 mutation, COPD, hypertension, prior CVA admitted with: 1) Sepsis, leukopenia on admission, now leucocytosis, and acute encephalopathy: from Enterococcus endocarditis. TTE showed mitral valve vegetation. LP unremarkable. 2) Acute mitral valve endocarditis with Enterococcus: TTE showed mitral valve vegetation. Appreciate Cardiology recs, no surgical intervention. 3) UTI: Less likely. Culture with mixed growth. Stopped Ceftriaxone 07/31/2019. Recs: continue IV Vancomycin, target trough:10-15 mcg/ml follow up blood culture susceptibility to determine final abx plan once blood cultures are negative at 48 hours, can place PICC line will need 6 weeks of IV abx D/W Dr. Chance Salas MD, FACP [facility] ([facility]) C: [phone] O: [phone] F: [phone] Subjective Date of service: 08/01/19 Principal diagnosis: JAK2 - CMPD Interval history: No complaints. No fever. Poor historian. Objective - Exam Narrative Exam: Physical Exam: Constitutional: awake, no distress Head, Ears, Nose: Normocephalic, atraumatic. External ears, nose normal Eyes: Conjunctivae/corneas clear. No icterus. No ptosis. Neck: supple, no meningeal signs Cardiovascular: S1, S2 normal. Respiratory: Good air entry, clear to auscultation bilaterally GI: Soft, non-tender; bowel sounds normal. No peritoneal signs Musculoskeletal: No pedal edema, no cyanosis. Skin: No rash or abscess Hem/Lymphatic: No palpable cervical or supraclavicular nodes. No lymphangitis Psych: mood ok, no agitation Neurological: awake, dysarthria + - Constitutional Vitals: Vital Signs Temp Pulse Resp BP Pulse Ox 97.5 F L 78 18 142/78 96 08/01/19 07:30 08/01/19 10:34 08/01/19 07:30 08/01/19 10:34 08/01/19 07:05 Temperature -Last 24 Hours Temperature 97.5 F Temperature 97.9 F Temperature 98.0 F Temperature 98.2 F Temperature 97.6 F - Labs CBC & Chem 7: 07/31/19 03:47 07/31/19 03:47 Labs: Abnormal lab results 08/01/19 08/01/19 08/01/19 Range/Units 06:54 06:54 06:54 TIBC 224 L (250-450) mcg/dL Ferritin 1110.0 H (13.0-400.0) ng/mL Vitamin B12 1858 H (211-911) pg/mL
--- NOTE | 2019-08-01 17:01 | Progress Note ---
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 He is unable to provide history history is provided by son (who is present at bedside) and via telephone and medical records. According to patient's family patient was transferred to [facility] and 2230. Approximately 1.5hours later he was found to be less responsive with difficulty breathing. EMS was called. Upon EMS' arrival to home he was found to be hypertensive with SBP in 200's, febrile, and tachy cardic with audible wheezing. He was given albuterol nebulizer treatment. 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 Otherwise, the CTA of the head appears unremarkable CTA neck with and without contrast: There is mild calcified plaque involving the proximal left ICA. However, there no CTA evidence of significant stenosis involving cervical carotid or vertebral arteries by NASCET criteria. CXR: There is mild increase in interstitial markings bilaterally likely representing mild edema. ECHO: 1. Mitral valve vegetation. 2. Moderate MR. 3. Normal LV function EF 55-60%. 4. Mild-moderate AR. Sepsis secondary to Endocarditis -Will place PICC line for 6 weeks of ABX, THEN REPEAT ECHO AFTER -LP done, doubt meningitis from preliminary studies, isolation discontinued - Mitral valve vegetation ?Endocarditis, await further review by ID -Tmax 104.8 NOTED -Lactic acid on admission 2.9 -Received IV fluid resuscitation -[facility]PC bactermia -Blood and urine cultures pending -On IV ABX UTI -Urine WBC 10.0 -Urine culture pending -On IV Abx Pneumonia -CXR shows mild increase in interstitial markings bilaterally -Blood Cultures ENTERROCOCCUS -Continue on IV Abx Acute encephalopathy -Likely due to Sepsis or possibly seizure -Evaluated by Dr. Slaughter (tele-neurology) -Neuro Checks -Continue to monitor -Neurology consulted and input noted. Possible seizure rather than CVA also as evidenced by CT head, with no acute cva noted Suspicion of Seizure -CT negtive for cva -No history of prior seizure disorder -Not a candidate for TPA; asked normal normal 07/28 @2230 -stop kEPPRA PER NEUROLOGY -On able to obtain MRI -On Keppra -Ativan when necessary -Initiate seizure precautions Hypertension -Continue to monitor BP -Resume home antihypertensive meds to optimize BP History of CVA -Hemorrhagic CVA 11/2018 -Ischemic CVA 02/2019 -Right-sided residual deficits -PT/OT eval recommending home with home health -Continue aspirin and statin therapy Elevated troponin -Troponin elevated at 0.170 -Will continue to trend -Cardiology input noted -Repeat echo pending due to hx of arotic regurgitation Elevated d-dimer -D-dimer elevated at 1354.97 -V/Q scan negative for PE Thrombocytosis JAK2 positive DVT PPX -SCD's -Will defer anticoagulation to hematology Spoke to family who state that the patient sometimes may walk, some times talk, but declined in the last few months, Speech to start PO intake. History Interval history: Patient seen and examined, more responsive today, No family today. Patient still with slurred speech which appears to be baseline, able to move limbs Hospitalist Physical - Physical exam Narrative exam: General appearance: Present: No distress nonverbal, well-developed, well- nourished, middle-aged - EENT Eyes: Present: PERRL, mild left facial droop improved from yesterday ENT: normal dentition, gold tooth - Neck Neck: Present: supple, normal ROM - Respiratory Respiratory effort: Non-labored Respiratory: Diminished - Cardiovascular Heart Sounds: Present: S1 & S2. + Murmur Absent: rub, click - Extremities Extremities: no ischemia, pulses intact, - Peripheral Assessment Peripheral Pulses: within normal limits - Abdominal General gastrointestinal: soft, non-tender, normal bowel sounds - Integumentary Integumentary: Present: warm, dry - Musculoskeletal Musculoskeletal: generalized weakness, right-sided residual deficits at baseline -Neurological Neurological: awake, oriented x 2, slurred speech - Psychiatric Psychiatric: Normal affect - Constitutional Vitals: Temp Pulse Resp BP Pulse Ox 97.5 F L 78 18 142/78 96 08/01/19 07:30 08/01/19 10:34 08/01/19 07:30 08/01/19 10:34 08/01/19 07:05 General appearance: Present: no acute distress Results - Labs CBC & Chem 7: 07/31/19 03:47 07/31/19 03:47 Labs: Laboratory Last Values WBC 9.5 K/mm3 (4.5-11.0) 07/31/19 03:47 RBC 2.54 M/mm3 (3.65-5.03) L 07/31/19 03:47 Hgb 9.1 gm/dl (11.8-15.2) L 07/31/19 03:47 Hct 27.0 % (35.5-45.6) L 07/31/19 03:47 MCV 107 fl (84-94) H 07/31/19 03:47 MCH 36 pg (28-32) H 07/31/19 03:47 MCHC 34 % (32-34) 07/31/19 03:47 RDW 25.1 % (13.2-15.2) H 07/31/19 03:47 Plt Count 210 K/mm3 (140-440) 07/31/19 03:47 Add Manual Diff Complete 07/29/19 00:42 Total Counted 100 07/29/19 00:42 Seg Neuts % (Manual) 82.0 % (40.0-70.0) H 07/29/19 00:42 0 % 07/29/19 00:42 16.0 % (13.4-35.0) 07/29/19 00:42 Reactive Lymphs % (Man) 0 % 07/29/19 00:42 1.0 % (0.0-7.3) 07/29/19 00:42 0 % (0.0-4.3) 07/29/19 00:42 1.0 % (0.0-1.8) 07/29/19 00:42 0 % 07/29/19 00:42 0 % 07/29/19 00:42 0 % 07/29/19 00:42 0 % 07/29/19 00:42 Nucleated RBC % Not Reportable 07/29/19 00:42 Seg Neutrophils # Man 1.6 K/mm3 (1.8-7.7) L 07/29/19 00:42 Band Neutrophils # 0.0 K/mm3 07/29/19 00:42 0.3 K/mm3 (1.2-5.4) L 07/29/19 00:42 Abs React Lymphs (Man) 0.0 K/mm3 07/29/19 00:42 0.0 K/mm3 (0.0-0.8) 07/29/19 00:42 0.0 K/mm3 (0.0-0.4) 07/29/19 00:42 0.0 K/mm3 (0.0-0.1) 07/29/19 00:42 0.0 K/mm3 07/29/19 00:42 0.0 K/mm3 07/29/19 00:42 0.0 K/mm3 07/29/19 00:42 Blast Cells # 0.0 K/mm3 07/29/19 00:42 WBC Morphology Not Reportable 07/29/19 00:42 Hypersegmented Neuts Not Reportable 07/29/19 00:42 Hyposegmented Neuts Not Reportable 07/29/19 00:42 Hypogranular Neuts Not Reportable 07/29/19 00:42 Not Reportable 07/29/19 00:42 Not Reportable 07/29/19 00:42 Not Reportable 07/29/19 00:42 Not Reportable 07/29/19 00:42 Not Reportable 07/29/19 00:42 Not Reportable 07/29/19 00:42 Not Reportable 07/29/19 00:42 Not Reportable 07/29/19 00:42 Plt Clumps, EDTA Not Reportable 07/29/19 00:42 Not Reportable 07/29/19 00:42 Not Reportable 07/29/19 00:42 Not Reportable 07/29/19 00:42 Plt Morphology Comment Not Reportable 07/29/19 00:42 RBC Morphology Not Reportable 07/29/19 00:42 Dimorphic RBCs Not Reportable 07/29/19 00:42 Not Reportable 07/29/19 00:42 Not Reportable 07/29/19 00:42 Not Reportable 07/29/19 00:42 2+ 07/29/19 00:42 Not Reportable 07/29/19 00:42 Not Reportable 07/29/19 00:42 Not Reportable 07/29/19 00:42 Not Reportable 07/29/19 00:42 Not Reportable 07/29/19 00:42 Not Reportable 07/29/19 00:42 Not Reportable 07/29/19 00:42 Not Reportable 07/29/19 00:42 Not Reportable 07/29/19 00:42 Not Reportable 07/29/19 00:42 Not Reportable 07/29/19 00:42 Not Reportable 07/29/19 00:42 Not Reportable 07/29/19 00:42 Not Reportable 07/29/19 00:42 Not Reportable 07/29/19 00:42 Acanthocytes (Spur) Not Reportable 07/29/19 00:42 Rouleaux Not Reportable 07/29/19 00:42 Not Reportable 07/29/19 00:42 Not Reportable 07/29/19 00:42 Not Reportable 07/29/19 00:42 Not Reportable 07/29/19 00:42 Hem Pathologist Commnt No 07/29/19 00:42 PT 13.8 Sec. (12.2-14.9) 07/29/19 00:42 INR 1.09 (0.87-1.13) 07/29/19 00:42 APTT 26.5 Sec. (24.2-36.6) 07/29/19 00:42 17.2 Sec. (15.1-19.6) 07/29/19 00:42 1354.97 ng/mlDDU (0-234) H 07/29/19 00:42 Sodium 140 mmol/L (137-145) 07/31/19 03:47 Potassium 4.1 mmol/L (3.6-5.0) 07/31/19 03:47 Chloride 105.5 mmol/L (98-107) 07/31/19 03:47 Carbon Dioxide 25 mmol/L (22-30) 07/31/19 03:47 14 mmol/L 07/31/19 03:47 BUN 12 mg/dL (9-20) 07/31/19 03:47 0.8 mg/dL (0.8-1.5) 07/31/19 03:47 Estimated GFR > 60 ml/min 07/31/19 03:47 15 % 07/31/19 03:47 Glucose 116 mg/dL (75-100) H 07/31/19 03:47 POC Glucose 136 (70-105) H 07/31/19 08:28 Lactic Acid 1.80 mmol/L (0.7-2.0) 07/29/19 12:58 Calcium 8.8 mg/dL (8.4-10.2) 07/31/19 03:47 Iron 82 ug/dL (49-181) 08/01/19 06:54 TIBC 224 mcg/dL (250-450) L 08/01/19 06:54 1110.0 ng/mL (13.0-400.0) H 08/01/19 06:54 184 units/L (55-170) H 07/29/19 12:58 CK-MB (CK-2) 2.8 ng/mL (0.0-4.0) 07/29/19 12:58 CK-MB (CK-2) Rel Index 1.5 (0-4) 07/29/19 12:58 0.114 ng/mL (0.00-0.029) H* D 07/29/19 10:44 NT-Pro-B Natriuret Pep 1767 pg/mL (0-900) H 07/29/19 02:03 Triglycerides TNR 07/29/19 00:42 Cholesterol TNR 07/29/19 00:42 TNR 07/29/19 00:42 TNR 07/29/19 00:42 TNR 07/29/19 00:42 Vitamin B12 1858 pg/mL (211-911) H 08/01/19 06:54 15.28 ng/mL (7.3-26.0) 08/01/19 06:54 Yellow (Yellow) 07/29/19 01:50 Slightly-cloudy (Clear) 07/29/19 01:50 5.0 (5.0-7.0) 07/29/19 01:50 Ur Specific [place] 1.017 (1.003-1.030) 07/29/19 01:50 100 mg/dl mg/dL (Negative) 07/29/19 01:50 Neg mg/dL (Negative) 07/29/19 01:50 Neg mg/dL (Negative) 07/29/19 01:50 Mod (Negative) 07/29/19 01:50 Pos (Negative) 07/29/19 01:50 Neg (Negative) 07/29/19 01:50 2.0 mg/dL (<2.0) 07/29/19 01:50 Ur Leukocyte Esterase Tr (Negative) 07/29/19 01:50 10.0 /HPF (0.0-6.0) H 07/29/19 01:50 41.0 /HPF (0.0-6.0) 07/29/19 01:50 U Epithel Cells (Auto) 1.0 /HPF (0-13.0) 07/29/19 01:50 2+ /HPF (Negative) 07/29/19 01:50 Few /HPF 07/29/19 01:50 Clear 07/30/19 12:00 Colorless 07/30/19 12:00 3 /mm3 (1-10) 07/30/19 12:00 75 /mm3 (0-0) 07/30/19 12:00 CSF Seg Neutrophils 5.6 % (0-6) 07/30/19 12:00 88.9 % (40-80) 07/30/19 12:00 CSF Reactive Lymphs 0 % 07/30/19 12:00 5.6 % (15-45) 07/30/19 12:00 0 % 07/30/19 12:00 0 % 07/30/19 12:00 C 07/30/19 12:00 64 mg/dL 07/30/19 12:00 31 mg/dL 07/30/19 12:00 Nonreactive (Nonreactive) 07/30/19 12:00 Vancomycin Trough 19.6 ug/mL (5.0-20.0) 08/01/19 07:50 Active Medications - Current Medications Current Medications: Generic Name Dose Route Start Last Admin Trade Name Freq PRN Reason Stop Dose Admin Acetaminophen 650 mg 07/29/19 05:29 Tylenol PO Q4H PRN Pain, Mild (1-3), fever 100.5> Acetaminophen/Hydrocodone Bitart 1 each 07/29/19 21:50 08/01/19 10:32 [place]inna 5/325 PO 1 each Q4H PRN Administration Pain, Moderate (4-6) Lipase/Protease/Amylase 1 each 07/29/19 14:[address] 10,500 Unit FEEDTUBE PRN PRN For Clogged Feeding Tube Aspirin 325 mg 07/29/19 10:00 08/01/19 10:34 Aspirin PO 325 mg QDAY LESLIE Administration Atorvastatin Calcium 80 mg 07/29/19 22:00 07/31/19 21:41 Lipitor PO 80 mg QHS LESLIE Administration Bisacodyl 10 mg 07/29/19 05:29 Dulcolax GA QDAY PRN Constipation Hydralazine HCl 10 mg 08/01/19 05:00 08/01/19 05:19 Apresoline IV 10 mg Q4HR PRN Administration Hypertension Sodium Chloride 1,000 mls @ 125 mls/hr 07/29/19 13:00 07/31/19 05:11 Nacl 0.9% 1000 Ml IV 125 mls/hr DIRECT LESLIE Administration Vancomycin HCl 1,250 mg/ 275 mls @ 166.667 mls/hr 08/01/19 22:00 Sodium Chloride IV Q12HR LESLIE Lisinopril 20 mg 07/29/19 10:00 08/01/19 10:34 Zestril PO 20 mg QDAY LESLIE Administration Lorazepam 1 mg 07/29/19 06:42 Ativan IV Q4H PRN Seizures Magnesium Hydroxide 30 ml 07/29/19 05:29 Milk Of Magnesia PO Q4H PRN Constipation Metoprolol Tartrate 50 mg 07/29/19 10:00 08/01/19 10:34 Lopressor PO 50 mg BID LESLIE Administration Ondansetron HCl 4 mg 07/29/19 05:29 Zofran IV Q6H PRN Nausea And Vomiting Simple Syrup 15 ml 07/29/19 14:30 Simple Syrup FEEDTUBE PRN PRN Hypoglycemia Simple Syrup 30 ml 07/29/19 14:30 Simple Syrup FEEDTUBE PRN PRN Hypoglycemia Sodium Bicarbonate 325 mg 07/29/19 14:30 Sodium Bicarbonate FEEDTUBE PRN PRN For Clogged Feeding Tube Sodium Chloride 10 ml 07/29/19 05:29 Sodium Chloride Flush Syringe 10 Ml IV PRN PRN LINE FLUSH Nutrition/Malnutrition Assess - Dietary Evaluation Nutrition/Malnutrition Findings: Nutrition Notes Start: 07/29/19 14:00 Freq: Status: Active Protocol: Document 08/01/19 11:59 DW (Rec: 08/01/19 12:33 DW [id number]) Co-Sign 08/01/19 11:59 LM Nutrition Notes Initial or Follow up Reassessment Current Diagnosis COPD,Sepsis,Hypertension, Hyperlipidemia Other Pertinent Diagnosis Hx CVA X 2, Nonverbal,UTI,Pneu Current Diet Mechanical Soft Labs/Tests Reviewed Pertinent Medications Reviewed Height 5 ft 9 in Weight 83.5 kg Erin Body Weight (kg) 72.72 BMI 27.1 Subjective/Other Information Pt was heavily sedated on medication. Per nurse pt refused to eat breakfast this morning when tech tried feeding him. Percent of energy/protein needs met: 0%/0% Burn Absent Trauma Absent GI Symptoms None Minimum of two criteria No #1 Nutrition Diagnosis Inadequate oral intake As Evidenced by Signs and Symptoms 0% of breakfast consumed Diagnosis Progress(for reassessment Continues documentation) Is patient on ventilator? No Is Patient Ambulatory and/or Out of Bed No [facility] 2007.536 Calculation Used for Recommendations [facility] Additional Notes PRO needs: 67-84g (0.8-1g/kg) Fluid needs: 1 mL/kcal Nutrition Intervention Change Diet Order: Continue Current Diet Add Supplement/Snack (indicate name/kcal Ensure Enlive BID /protein ) Provides kCal: 700 Provides Protein (gm) 40 Goal #1 Meet atleast 75% of kcal/PRO needs via PO/ONS Anticipated Discharge Needs: Mechanical Soft Diet Follow-Up By: 08/05/19 Additional Comments FU PO/ONS intake
[2019-08-01] MEDS: VANCOMYCIN 1,250 MG in NACL 0.9% 250ML 250 ML IV SCH (21:39)
--- NOTE | 2019-08-02 07:43 | Hem/Onc Progress Note ---
Assessment and Plan 1. Unresponsiveness, history of fever. ID team following. 2. JAK2 mutation. The patient was on hydroxyurea, white cell count was low, Hydrea has been held. 3. History of chronic obstructive pulmonary disease. 4. History of hypertension. 5. History of hyperlipidemia. 6. History of cerebrovascular accident. 7. History of left renal cell cancer removal. 8. V/Q scan is negative for pulmonary embolism. 9. Lumbar puncture was ordered by ID. 10. I will follow the patient during inpatient stay. 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 - d/w dr Fletcher - will restart at lower dose and follow - Patient Problems (1) Myeloproliferative disease Current Visit: No Status: Acute Subjective Date of service: 08/02/19 Principal diagnosis: CMPD Interval history: slurred speech Objective - Exam Narrative Exam: Pain - n/a General appearance - awake - but slurred speech Performance status complete dependence Eyes - no icterus ENT - no bleeding LNs cervical not palpable Neck - no LN Respiratory Normal Breath sounds - CTA anteriorly CVS S1 S2 + Extremities no calf tenderness General GI Soft Rectal deferred male - deferred Skin warm Musculoskeletal moving extremitites Neurologically awake - slurred speech - Constitutional Vitals: Last Vital Signs Temp 98.4 F 08/02/19 04:21 Pulse 66 08/02/19 04:21 Resp 18 08/02/19 04:21 BP 137/79 08/02/19 04:21 Pulse Ox 97 08/02/19 04:21 - Labs Lab Results: Laboratory Results - last 24 hr 07/30/19 08/01/19 08/01/19 12:00 06:54 06:54 Iron 82 TIBC 224 L Ferritin 1110.0 H Vitamin B12 Folate CSF VDRL Nonreactive Vancomycin Trough 08/01/19 08/01/19 08/01/19 06:54 06:54 07:50 Iron TIBC Ferritin Vitamin B12 1858 H Folate 15.28 CSF VDRL Vancomycin Trough 19.6 Medications & Allergies - Medications Allergies/Adverse Reactions: Allergies No Known Allergies Allergy (Unverified 07/17/14 19:25) Home Medications: Home Medications Medication Instructions Recorded Confirmed Last Taken Type Metoprolol Tartrate 50 mg PO BID 03/05/19 07/29/19 07/28/19 History QUEtiapine 50 mg PO DAILY 03/05/19 07/29/19 Unknown History Aspirin 325 mg PO QDAY tablet 03/11/19 07/29/19 07/29/19 17:39 Rx AtorvaSTATin [Lipitor] 80 mg PO QHS tablet 03/11/19 07/29/19 Unknown Rx Hydroxyurea [Hydrea] 500 mg PO QDAY capsule 03/11/19 07/29/19 07/28/19 Rx Lisinopril [Zestril TAB] 20 mg PO QDAY tablet 03/11/19 07/29/19 Unknown Rx traZODone [Desyrel] 50 mg PO QDAY PRN tablet 03/11/19 07/29/19 Unknown Rx Active Medications: Generic Name Dose Route Start Last Admin Trade Name Freq PRN Reason Stop Dose Admin Acetaminophen 650 mg 07/29/19 05:29 Tylenol PO Q4H PRN Pain, Mild (1-3), fever 100.5> Acetaminophen/Hydrocodone Bitart 1 each 07/29/19 21:50 08/01/19 10:32 [place] 5/325 PO 1 each Q4H PRN Administration Pain, Moderate (4-6) Lipase/Protease/Amylase 1 each 07/29/19 14:[address] 10,500 Unit FEEDTUBE PRN PRN For Clogged Feeding Tube Aspirin 325 mg 07/29/19 10:00 08/01/19 10:34 Aspirin PO 325 mg QDAY LESLIE Administration Atorvastatin Calcium 80 mg 07/29/19 22:00 08/01/19 21:40 Lipitor PO 80 mg QHS LESLIE Administration Bisacodyl 10 mg 07/29/19 05:29 Dulcolax IA QDAY PRN Constipation Hydralazine HCl 10 mg 08/01/19 05:00 08/01/19 05:19 Apresoline IV 10 mg Q4HR PRN Administration Hypertension Sodium Chloride 1,000 mls @ 125 mls/hr 07/29/19 13:00 07/31/19 05:11 Nacl 0.9% 1000 Ml IV 125 mls/hr DIRECT LESLIE Administration Vancomycin HCl 1,250 mg/ 275 mls @ 166.667 mls/hr 08/01/19 22:00 08/01/19 21:39 Sodium Chloride IV 166.667 mls/hr Q12HR LESLIE Administration Lisinopril 20 mg 07/29/19 10:00 08/01/19 10:34 Zestril PO 20 mg QDAY LESLIE Administration Lorazepam 1 mg 07/29/19 06:42 Ativan IV Q4H PRN Seizures Magnesium Hydroxide 30 ml 07/29/19 05:29 Milk Of Magnesia PO Q4H PRN Constipation Metoprolol Tartrate 50 mg 07/29/19 10:00 08/01/19 21:39 Lopressor PO 50 mg BID LESLIE Administration Ondansetron HCl 4 mg 07/29/19 05:29 Zofran IV Q6H PRN Nausea And Vomiting Simple Syrup 15 ml 07/29/19 14:30 Simple Syrup FEEDTUBE PRN PRN Hypoglycemia Simple Syrup 30 ml 07/29/19 14:30 Simple Syrup FEEDTUBE PRN PRN Hypoglycemia Sodium Bicarbonate 325 mg 07/29/19 14:30 Sodium Bicarbonate FEEDTUBE PRN PRN For Clogged Feeding Tube Sodium Chloride 10 ml 07/29/19 05:29 Sodium Chloride Flush Syringe 10 Ml IV PRN PRN LINE FLUSH
--- NOTE | 2019-08-02 09:47 | Progress Note ---
Assessment and Plan Sepsis secondary to endocarditis head CT scan reports no acute abnormality. ventilation perfusion scan reports a low probability for PE. Acute mitral valve endocarditis Hx of COPD Hypertension Prior CVA Elevation of troponin ECG is sinus tachycardia, no acute ischemic changes. An repeat echocardiogram this admission revealed: 1. Mitral valve vegetation. 2. Moderate MR. 3. Normal LV function EF 55-60%. 4. Mild-moderate AR. Recommend: 6 weeks of appropriate intravenous antibiotic therapy, after which we will repeat the echocardiogram with Doppler. Subjective Date of service: 08/02/19 Principal diagnosis: JAK2 - CMPD Interval history: Patient is resting in bed comfortably. No events on telemetry. He remains afebrile. Objective Vital Signs Temp Pulse Pulse Resp BP Pulse Ox 08/02/19 09:33 96 08/02/19 04:21 98.4 F 66 18 137/79 97 08/02/19 00:28 98.1 F 62 18 136/81 97 08/01/19 21:39 67 131/69 08/01/19 20:55 67 18 96 08/01/19 19:41 98.0 F 67 18 131/69 96 08/01/19 19:37 72 08/01/19 16:25 98.2 F 18 107/65 08/01/19 12:38 97.6 F 18 115/65 08/01/19 11:32 18 08/01/19 10:34 78 142/78 08/01/19 10:00 78 78 18 99 - Physical Examination General: No Apparent Distress HEENT: Positive: PERRL Neck: Positive: trachea midline Cardiac: Positive: Reg Rate and Rhythm Lungs: Positive: Decreased Breath Sounds Neuro: Positive: Weakness
[2019-08-02] MEDS: ZESTRIL PO SCH (10:43)
[2019-08-02] MEDS: NORCO 5/325 PO PRN (10:44)
[2019-08-02] MEDS: METOPROLOL PO SCH ×2 (10:45→21:39)
[2019-08-02] MEDS: ASPIRIN PO SCH (10:48)
[2019-08-02] MEDS: VANCOMYCIN 1,250 MG in NACL 0.9% 250ML 250 ML IV SCH (10:48)
--- NOTE | 2019-08-02 12:48 | Progress Note ---
Assessment and Plan Cultures: 07/29/2019 Blood culture: Enterococcus faecalis Urine culture: mixed growth 07/30/2019 Blood culture: no growth at 48 hours A/P: 53-year-old male with JAK2 mutation, COPD, hypertension, prior CVA admitted with: 1) Sepsis, leukopenia on admission, now leucocytosis, and acute encephalopathy: from Enterococcus endocarditis. TTE showed mitral valve vegetation. LP unremarkable. 2) Acute mitral valve endocarditis with Enterococcus: TTE showed mitral valve vegetation. Appreciate Cardiology recs, no surgical intervention. 3) UTI: Less likely. Culture with mixed growth. Stopped Ceftriaxone 07/31/2019. Recs: discontinued Vancomycin. Appreciate cardiology recs started IV Ampicillin 2 gm q4 hrs + IV Ceftriaxone 2 gm q12 hrs for E.faecalis endocarditis ending 09/10/2019 OK to insert PICC line, will need 6 weeks of IV abx upon discharge, will convert Ampicillin to a continuous infusion (6 gm continuous infusion every 12 hours). Discussed with Case Management, orders placed. D/W Dr. Fletcher and patient's brother at bedside. Anabel Salas MD, FACP [facility] ([facility]) C: [phone] O: [phone] F: [phone] Subjective Date of service: 08/02/19 Principal diagnosis: JAK2 - CMPD Interval history: Poor historian. Awake, comfortable. No fever. Brother at bedside. Objective - Exam Narrative Exam: Physical Exam: Constitutional: awake, no distress Head, Ears, Nose: Normocephalic, atraumatic. External ears, nose normal Eyes: Conjunctivae/corneas clear. No icterus. No ptosis. Neck: supple, no meningeal signs Cardiovascular: S1, S2 normal. Respiratory: Good air entry, clear to auscultation bilaterally GI: Soft, non-tender; bowel sounds normal. No peritoneal signs Musculoskeletal: No pedal edema, no cyanosis. Skin: No rash or abscess Hem/Lymphatic: No palpable cervical or supraclavicular nodes. No lymphangitis Psych: mood ok, no agitation Neurological: awake, dysarthria + - Constitutional Vitals: Vital Signs Temp Pulse Resp BP Pulse Ox 98.8 F 66 20 138/78 98 08/02/19 07:32 08/02/19 10:45 08/02/19 10:44 08/02/19 10:45 08/02/19 10:00 Temperature -Last 24 Hours Temperature 98.8 F Temperature 98.4 F Temperature 98.1 F Temperature 98.0 F Temperature 98.2 F - Labs CBC & Chem 7: 07/31/19 03:47 07/31/19 03:47
--- NOTE | 2019-08-02 13:25 | Progress Note ---
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 He is unable to provide history history is provided by son (who is present at bedside) and via telephone and medical records. According to patient's family [facility]. Approximately 1.5hours later he was found to be less responsive with difficulty breathing. EMS was called. Upon EMS' arrival to home he was found to be hypertensive with SBP in 200's, febrile, and tachy cardic with audible wheezing. He was given albuterol nebulizer treatment. 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 Otherwise, the CTA of the head appears unremarkable CTA neck with and without contrast: There is mild calcified plaque involving the proximal left ICA. However, there no CTA evidence of significant stenosis involving cervical carotid or vertebral arteries by NASCET criteria. CXR: There is mild increase in interstitial markings bilaterally likely representing mild edema. ECHO: 1. Mitral valve vegetation. 2. Moderate MR. 3. Normal LV function EF 55-60%. 4. Mild-moderate AR. Sepsis secondary to Endocarditis -Will place PICC line for 6 weeks of ABX, THEN REPEAT ECHO AFTER\ discontinued Vancomycin. 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 Discussed with Case Management, orders placed. -LP done, doubt meningitis from preliminary studies, isolation discontinued - Mitral valve vegetation ?Endocarditis, await further review by ID -Tmax 104.8 NOTED -Lactic acid on admission 2.9 -Received IV fluid resuscitation -GPC bactermia -Blood and urine cultures pending -On IV ABX as noted above UTI -Urine WBC 10.0 -Urine culture no growth -On IV Abx Pneumonia -CXR shows mild increase in interstitial markings bilaterally -Blood Cultures ENTERROCOCCUS -Continue on IV Abx Acute encephalopathy -Likely due to Sepsis or possibly seizure -Evaluated by Dr. Slaughter (tele-neurology) -Neuro Checks -Continue to monitor -Neurology consulted and input noted. Possible seizure rather than CVA also as evidenced by CT head, with no acute cva noted Suspicion of Seizure -CT negtive for cva -No history of prior seizure disorder -Not a candidate for TPA; asked normal normal 07/28 @2230 -stop kEPPRA PER NEUROLOGY -On able to obtain MRI -On Keppra -Ativan when necessary -Initiate seizure precautions Hypertension -Continue to monitor BP -Resume home antihypertensive meds to optimize BP History of CVA -Hemorrhagic CVA 11/2018 -Ischemic CVA 02/2019 -Right-sided residual deficits -PT/OT eval recommending home with home health -Continue aspirin and statin therapy Elevated troponin -Troponin elevated at 0.170 -Will continue to trend -Cardiology input noted -Repeat echo pending due to hx of arotic regurgitation Elevated d-dimer -D-dimer elevated at 1354.97 -V/Q scan negative for PE Thrombocytosis JAK2 positive DVT PPX -SCD's -Will defer anticoagulation to hematology Spoke to family who state that the patient sometimes may walk, some times talk, but declined in the last few months, Speech to start PO intake. Discharge once IV abx arranged History Interval history: Patient seen and examined, clinically improving, sitting up, moving all ext Hospitalist Physical - Physical exam Narrative exam: General appearance: Present: No distress nonverbal, well-developed, well-no urished, middle-aged - EENT Eyes: Present: PERRL, mild left facial droop ENT: normal dentition, gold tooth - Neck Neck: Present: supple, normal ROM - Respiratory Respiratory effort: Non-labored Respiratory: Diminished - Cardiovascular Heart Sounds: Present: S1 & S2. + Murmur Absent: rub, click - Extremities Extremities: no ischemia, pulses intact, - Peripheral Assessment Peripheral Pulses: within normal limits - Abdominal General gastrointestinal: soft, non-tender, normal bowel sounds - Integumentary Integumentary: Present: warm, dry - Musculoskeletal Musculoskeletal: generalized weakness, right-sided residual deficits at baseline -Neurological Neurological: awake, oriented x 2, slurred speech persist and chronic - Psychiatric Psychiatric: Normal affect - Constitutional Vitals: Temp Pulse Resp BP Pulse Ox 98.8 F 66 20 138/78 98 08/02/19 07:32 08/02/19 10:45 08/02/19 10:44 08/02/19 10:45 08/02/19 10:00 General appearance: Present: no acute distress Results - Labs CBC & Chem 7: 07/31/19 03:47 07/31/19 03:47 Labs: Laboratory Last Values WBC 9.5 K/mm3 (4.5-11.0) 07/31/19 03:47 RBC 2.54 M/mm3 (3.65-5.03) L 07/31/19 03:47 Hgb 9.1 gm/dl (11.8-15.2) L 07/31/19 03:47 Hct 27.0 % (35.5-45.6) L 07/31/19 03:47 MCV 107 fl (84-94) H 07/31/19 03:47 MCH 36 pg (28-32) H 07/31/19 03:47 MCHC 34 % (32-34) 07/31/19 03:47 RDW 25.1 % (13.2-15.2) H 07/31/19 03:47 Plt Count 210 K/mm3 (140-440) 07/31/19 03:47 Add Manual Diff Complete 07/29/19 00:42 Total Counted 100 07/29/19 00:42 Seg Neuts % (Manual) 82.0 % (40.0-70.0) H 07/29/19 00:42 0 % 07/29/19 00:42 16.0 % (13.4-35.0) 07/29/19 00:42 Reactive Lymphs % (Man) 0 % 07/29/19 00:42 1.0 % (0.0-7.3) 07/29/19 00:42 0 % (0.0-4.3) 07/29/19 00:42 1.0 % (0.0-1.8) 07/29/19 00:42 0 % 07/29/19 00:42 0 % 07/29/19 00:42 0 % 07/29/19 00:42 0 % 07/29/19 00:42 Nucleated RBC % Not Reportable 07/29/19 00:42 Seg Neutrophils # Man 1.6 K/mm3 (1.8-7.7) L 07/29/19 00:42 Band Neutrophils # 0.0 K/mm3 07/29/19 00:42 0.3 K/mm3 (1.2-5.4) L 07/29/19 00:42 Abs React Lymphs (Man) 0.0 K/mm3 07/29/19 00:42 0.0 K/mm3 (0.0-0.8) 07/29/19 00:42 0.0 K/mm3 (0.0-0.4) 07/29/19 00:42 0.0 K/mm3 (0.0-0.1) 07/29/19 00:42 0.0 K/mm3 07/29/19 00:42 0.0 K/mm3 07/29/19 00:42 0.0 K/mm3 07/29/19 00:42 Blast Cells # 0.0 K/mm3 07/29/19 00:42 WBC Morphology Not Reportable 07/29/19 00:42 Hypersegmented Neuts Not Reportable 07/29/19 00:42 Hyposegmented Neuts Not Reportable 07/29/19 00:42 Hypogranular Neuts Not Reportable 07/29/19 00:42 Not Reportable 07/29/19 00:42 Not Reportable 07/29/19 00:42 Not Reportable 07/29/19 00:42 Not Reportable 07/29/19 00:42 Not Reportable 07/29/19 00:42 Not Reportable 07/29/19 00:42 Not Reportable 07/29/19 00:42 Not Reportable 07/29/19 00:42 Plt Clumps, EDTA Not Reportable 07/29/19 00:42 Not Reportable 07/29/19 00:42 Not Reportable 07/29/19 00:42 Not Reportable 07/29/19 00:42 Plt Morphology Comment Not Reportable 07/29/19 00:42 RBC Morphology Not Reportable 07/29/19 00:42 Dimorphic RBCs Not Reportable 07/29/19 00:42 Not Reportable 07/29/19 00:42 Not Reportable 07/29/19 00:42 Not Reportable 07/29/19 00:42 2+ 07/29/19 00:42 Not Reportable 07/29/19 00:42 Not Reportable 07/29/19 00:42 Not Reportable 07/29/19 00:42 Not Reportable 07/29/19 00:42 Not Reportable 07/29/19 00:42 Not Reportable 07/29/19 00:42 Not Reportable 07/29/19 00:42 Not Reportable 07/29/19 00:42 Not Reportable 07/29/19 00:42 Not Reportable 07/29/19 00:42 Not Reportable 07/29/19 00:42 Not Reportable 07/29/19 00:42 Not Reportable 07/29/19 00:42 Not Reportable 07/29/19 00:42 Not Reportable 07/29/19 00:42 Acanthocytes (Spur) Not Reportable 07/29/19 00:42 Rouleaux Not Reportable 07/29/19 00:42 Not Reportable 07/29/19 00:42 Not Reportable 07/29/19 00:42 Not Reportable 07/29/19 00:42 Not Reportable 07/29/19 00:42 Hem Pathologist Commnt No 07/29/19 00:42 PT 13.8 Sec. (12.2-14.9) 07/29/19 00:42 INR 1.09 (0.87-1.13) 07/29/19 00:42 APTT 26.5 Sec. (24.2-36.6) 07/29/19 00:42 17.2 Sec. (15.1-19.6) 07/29/19 00:42 1354.97 ng/mlDDU (0-234) H 07/29/19 00:42 Sodium 140 mmol/L (137-145) 07/31/19 03:47 Potassium 4.1 mmol/L (3.6-5.0) 07/31/19 03:47 Chloride 105.5 mmol/L (98-107) 07/31/19 03:47 Carbon Dioxide 25 mmol/L (22-30) 07/31/19 03:47 14 mmol/L 07/31/19 03:47 BUN 12 mg/dL (9-20) 07/31/19 03:47 0.8 mg/dL (0.8-1.5) 07/31/19 03:47 Estimated GFR > 60 ml/min 07/31/19 03:47 15 % 07/31/19 03:47 Glucose 116 mg/dL (75-100) H 07/31/19 03:47 POC Glucose 136 (70-105) H 07/31/19 08:28 Lactic Acid 1.80 mmol/L (0.7-2.0) 07/29/19 12:58 Calcium 8.8 mg/dL (8.4-10.2) 07/31/19 03:47 Iron 82 ug/dL (49-181) 08/01/19 06:54 TIBC 224 mcg/dL (250-450) L 08/01/19 06:54 1110.0 ng/mL (13.0-400.0) H 08/01/19 06:54 184 units/L (55-170) H 07/29/19 12:58 CK-MB (CK-2) 2.8 ng/mL (0.0-4.0) 07/29/19 12:58 CK-MB (CK-2) Rel Index 1.5 (0-4) 07/29/19 12:58 0.114 ng/mL (0.00-0.029) H* D 07/29/19 10:44 NT-Pro-B Natriuret Pep 1767 pg/mL (0-900) H 07/29/19 02:03 Triglycerides TNR 07/29/19 00:42 Cholesterol TNR 07/29/19 00:42 TNR 07/29/19 00:42 TNR 07/29/19 00:42 TNR 07/29/19 00:42 Vitamin B12 1858 pg/mL (211-911) H 08/01/19 06:54 15.28 ng/mL (7.3-26.0) 08/01/19 06:54 Yellow (Yellow) 07/29/19 01:50 Slightly-cloudy (Clear) 07/29/19 01:50 5.0 (5.0-7.0) 07/29/19 01:50 Ur Specific [place] 1.017 (1.003-1.030) 07/29/19 01:50 100 mg/dl mg/dL (Negative) 07/29/19 01:50 Neg mg/dL (Negative) 07/29/19 01:50 Neg mg/dL (Negative) 07/29/19 01:50 Mod (Negative) 07/29/19 01:50 Pos (Negative) 07/29/19 01:50 Neg (Negative) 07/29/19 01:50 2.0 mg/dL (<2.0) 07/29/19 01:50 Ur Leukocyte Esterase Tr (Negative) 07/29/19 01:50 10.0 /HPF (0.0-6.0) H 07/29/19 01:50 41.0 /HPF (0.0-6.0) 07/29/19 01:50 U Epithel Cells (Auto) 1.0 /HPF (0-13.0) 07/29/19 01:50 2+ /HPF (Negative) 07/29/19 01:50 Few /HPF 07/29/19 01:50 Clear 07/30/19 12:00 Colorless 07/30/19 12:00 3 /mm3 (1-10) 07/30/19 12:00 75 /mm3 (0-0) 07/30/19 12:00 CSF Seg Neutrophils 5.6 % (0-6) 07/30/19 12:00 88.9 % (40-80) 07/30/19 12:00 CSF Reactive Lymphs 0 % 07/30/19 12:00 5.6 % (15-45) 07/30/19 12:00 0 % 07/30/19 12:00 0 % 07/30/19 12:00 C 07/30/19 12:00 64 mg/dL 07/30/19 12:00 31 mg/dL 07/30/19 12:00 Nonreactive (Nonreactive) 07/30/19 12:00 Vancomycin Trough 19.6 ug/mL (5.0-20.0) 08/01/19 07:50 Active Medications - Current Medications Current Medications: Generic Name Dose Route Start Last Admin Trade Name Freq PRN Reason Stop Dose Admin Acetaminophen 650 mg 07/29/19 05:29 Tylenol PO Q4H PRN Pain, Mild (1-3), fever 100.5> Acetaminophen/Hydrocodone Bitart 1 each 07/29/19 21:50 08/02/19 10:44 [place] 5/325 PO 1 each Q4H PRN Administration Pain, Moderate (4-6) Lipase/Protease/Amylase 1 each 07/29/19 14:[address] 10,500 Unit FEEDTUBE PRN PRN For Clogged Feeding Tube Aspirin 325 mg 07/29/19 10:00 08/02/19 10:48 Aspirin PO 325 mg QDAY LESLIE Administration Atorvastatin Calcium 80 mg 07/29/19 22:00 08/01/19 21:40 Lipitor PO 80 mg QHS LESLIE Administration Bisacodyl 10 mg 07/29/19 05:29 Dulcolax MN QDAY PRN Constipation Hydralazine HCl 10 mg 08/01/19 05:00 08/01/19 05:19 Apresoline IV 10 mg Q4HR PRN Administration Hypertension Hydroxyurea 500 mg 08/02/19 10:00 Hydrea PO 3XW LESLIE Sodium Chloride 1,000 mls @ 125 mls/hr 07/29/19 13:00 07/31/19 05:11 Nacl 0.9% 1000 Ml IV 125 mls/hr DIRECT LESLIE Administration Ampicillin Sodium 2 gm in 100 mls @ 100 mls/hr 08/02/19 14:00 Ampicillin/Ns 2 Gm/100 Ml IV 08/03/19 18:59 Q4HR LESLIE Ceftriaxone Sodium 2 gm in 100 mls @ 200 mls/hr 08/02/19 13:00 Rocephin/Ns 2 Gm/100 Ml IV Q12HR [facility] Protocol Lisinopril 20 mg 07/29/19 10:00 08/02/19 10:43 Zestril PO 20 mg QDAY LESLIE Administration Lorazepam 1 mg 07/29/19 06:42 Ativan IV Q4H PRN Seizures Magnesium Hydroxide 30 ml 07/29/19 05:29 Milk Of Magnesia PO Q4H PRN Constipation Metoprolol Tartrate 50 mg 07/29/19 10:00 08/02/19 10:45 Lopressor PO 50 mg BID LESLIE Administration Ondansetron HCl 4 mg 07/29/19 05:29 Zofran IV Q6H PRN Nausea And Vomiting Simple Syrup 15 ml 07/29/19 14:30 Simple Syrup FEEDTUBE PRN PRN Hypoglycemia Simple Syrup 30 ml 07/29/19 14:30 Simple Syrup FEEDTUBE PRN PRN Hypoglycemia Sodium Bicarbonate 325 mg 07/29/19 14:30 Sodium Bicarbonate FEEDTUBE PRN PRN For Clogged Feeding Tube Sodium Chloride 10 ml 07/29/19 05:29 Sodium Chloride Flush Syringe 10 Ml IV PRN PRN LINE FLUSH Nutrition/Malnutrition Assess - Dietary Evaluation Nutrition/Malnutrition Findings: Nutrition Notes Start: 07/29/19 14:00 Freq: Status: Active Protocol: Document 08/01/19 11:59 DW (Rec: 08/01/19 12:33 DW [id number]) Co-Sign 08/01/19 11:59 LM Nutrition Notes Initial or Follow up Reassessment Current Diagnosis COPD,Sepsis,Hypertension, Hyperlipidemia Other Pertinent Diagnosis Hx CVA X 2, Nonverbal,UTI,Pneu Current Diet Mechanical Soft Labs/Tests Reviewed Pertinent Medications Reviewed Height 5 ft 9 in Weight 83.5 kg [place] Body Weight (kg) 72.72 BMI 27.1 Subjective/Other Information Pt was heavily sedated on medication. Per nurse pt refused to eat breakfast this morning when tech tried feeding him. Percent of energy/protein needs met: 0%/0% Burn Absent Trauma Absent GI Symptoms None Minimum of two criteria No #1 Nutrition Diagnosis Inadequate oral intake As Evidenced by Signs and Symptoms 0% of breakfast consumed Diagnosis Progress(for reassessment Continues documentation) Is patient on ventilator? No Is Patient Ambulatory and/or Out of Bed No REE-([facility]-confined to bed) 2007.536 Calculation Used for Recommendations [facility] Additional Notes PRO needs: 67-84g (0.8-1g/kg) Fluid needs: 1 mL/kcal Nutrition Intervention Change Diet Order: Continue Current Diet Add Supplement/Snack (indicate name/kcal Ensure Enlive BID /protein ) Provides kCal: 700 Provides Protein (gm) 40 Goal #1 Meet atleast 75% of kcal/PRO needs via PO/ONS Anticipated Discharge Needs: Mechanical Soft Diet Follow-Up By: 08/05/19 Additional Comments FU PO/ONS intake
[2019-08-02 13:47] LABS: Alanine Aminotransferase 17 units/L (7-56); Albumin 3.1 g/dL (3.9-5); BUN/Creatinine Ratio 16; Blood Urea Nitrogen 16 mg/dL (9-20); Calcium 8.8 mg/dL (8.4-10.2); Hemolysis Index 0
[2019-08-02] MEDS: ROCEPHIN/NS 2 GM/100 ML 2 GM/100 ML BAG IV SCH (17:19)
[2019-08-02] MEDS: AMPICILLIN/NS 2 GM/100 ML 2 GM/100 ML BAG IV SCH ×2 (18:31→21:00)
[2019-08-03] MEDS: AMPICILLIN/NS 2 GM/100 ML 2 GM/100 ML BAG IV SCH ×6 (00:45→20:58)
[2019-08-03] MEDS: ROCEPHIN/NS 2 GM/100 ML 2 GM/100 ML BAG IV SCH ×2 (03:05→16:05)
--- NOTE | 2019-08-03 06:58 | Progress Note ---
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 He is unable to provide history history is provided by son (who is present at bedside) and via telephone and medical records. According to patient's family patient [facility]. Approximately 1.5hours later he was found to be less responsive with difficulty breathing. EMS was called. Upon EMS' arrival to home he was found to be hypertensive with SBP in 200's, febrile, and tachy cardic with audible wheezing. He was given albuterol nebulizer treatment. 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 Otherwise, the CTA of the head appears unremarkable CTA neck with and without contrast: There is mild calcified plaque involving the proximal left ICA. However, there no CTA evidence of significant stenosis involving cervical carotid or vertebral arteries by NASCET criteria. CXR: There is mild increase in interstitial markings bilaterally likely representing mild edema. Cultures: 07/29/2019 Blood culture: Enterococcus faecalis Urine culture: mixed growth 07/30/2019 Blood culture: no growth at 48 hours ECHO: 1. Mitral valve vegetation. 2. Moderate MR. 3. Normal LV function EF 55-60%. 4. Mild-moderate AR. Sepsis secondary to Acute mitral valve endocarditis with Enterococcus: TTE showed mitral valve vegetation. Appreciate Cardiology recs, no surgical intervention. -Picc line placed. discontinued Vancomycin. 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 Discussed with Case Management, orders placed. -LP done, doubt meningitis from preliminary studies, isolation discontinued - Mitral valve vegetation ?Endocarditis, await further review by ID -Tmax 104.8 on admission -Lactic acid on admission 2.9 -Received IV fluid resuscitation -On IV ABX as noted above UTI- Ruled out as source -Urine WBC 10.0 -Urine culture no growth -On IV Abx Pneumonia -CXR shows mild increase in interstitial markings bilaterally -Blood Cultures ENTERROCOCCUS -Continue on IV Abx Acute encephalopathy -Likely due to Sepsis or possibly seizure -Evaluated by Dr. Slaughter (tele-neurology) -Neuro Checks -Continue to monitor -Neurology consulted and input noted. Possible seizure rather than CVA also as evidenced by CT head, with no acute cva noted Suspicion of Seizure -CT negtive for cva -No history of prior seizure disorder -Not a candidate for TPA; asked normal normal 07/28 @2230 -stop kEPPRA PER NEUROLOGY -On able to obtain MRI -On Keppra -Ativan when necessary -Initiate seizure precautions Hypertension -Continue to monitor BP -Resume home antihypertensive meds to optimize BP History of CVA -Hemorrhagic CVA 11/2018 -Ischemic CVA 02/2019 -Right-sided residual deficits -PT/OT eval recommending home with home health -Continue aspirin and statin therapy Type 2 mi -Troponin elevated at 0.170 -Will continue to trend -Cardiology input noted Elevated d-dimer -D-dimer elevated at 1354.97 -V/Q scan negative for PE Thrombocytosis JAK2 positive DVT PPX -SCD's -Will defer anticoagulation to hematology Spoke to family who state that the patient sometimes may walk, some times talk, but declined in the last few months, Speech to start PO intake. Discharge once IV abx arranged History Interval history: Follow up for Endocarditis Patient seen and examined, clinically improving, sitting up, moving all ext, no family present No adverse event reported overnight Hospitalist Physical - Physical exam Narrative exam: General appearance: Present: No distress nonverbal, well-developed, well- nourished, middle-aged - EENT Eyes: Present: PERRL, mild left facial droop ENT: normal dentition, gold tooth - Neck Neck: Present: supple, normal ROM - Respiratory Respiratory effort: Non-labored Respiratory: Diminished - Cardiovascular Heart Sounds: Present: S1 & S2. + Murmur Absent: rub, click - Extremities Extremities: no ischemia, pulses intact, - Peripheral Assessment Peripheral Pulses: within normal limits - Abdominal General gastrointestinal: soft, non-tender, normal bowel sounds - Integumentary Integumentary: Present: warm, dry - Musculoskeletal Musculoskeletal: generalized weakness, right-sided residual deficits at baseline -Neurological Neurological: awake, oriented x 2, slurred speech persist and chronic - Psychiatric Psychiatric: Normal affect - Constitutional Vitals: Temp Pulse Resp BP Pulse Ox 97.9 F 70 18 133/80 99 08/03/19 05:39 08/03/19 05:38 08/03/19 05:38 08/03/19 05:38 08/03/19 05:38 General appearance: Present: no acute distress Results - Labs CBC & Chem 7: 07/31/19 03:47 08/02/19 12:47 Labs: Laboratory Last Values WBC 9.5 K/mm3 (4.5-11.0) 07/31/19 03:47 RBC 2.54 M/mm3 (3.65-5.03) L 07/31/19 03:47 Hgb 9.1 gm/dl (11.8-15.2) L 07/31/19 03:47 Hct 27.0 % (35.5-45.6) L 07/31/19 03:47 MCV 107 fl (84-94) H 07/31/19 03:47 MCH 36 pg (28-32) H 07/31/19 03:47 MCHC 34 % (32-34) 07/31/19 03:47 RDW 25.1 % (13.2-15.2) H 07/31/19 03:47 Plt Count 210 K/mm3 (140-440) 07/31/19 03:47 Add Manual Diff Complete 07/29/19 00:42 Total Counted 100 07/29/19 00:42 Seg Neuts % (Manual) 82.0 % (40.0-70.0) H 07/29/19 00:42 0 % 07/29/19 00:42 16.0 % (13.4-35.0) 07/29/19 00:42 Reactive Lymphs % (Man) 0 % 07/29/19 00:42 1.0 % (0.0-7.3) 07/29/19 00:42 0 % (0.0-4.3) 07/29/19 00:42 1.0 % (0.0-1.8) 07/29/19 00:42 0 % 07/29/19 00:42 0 % 07/29/19 00:42 0 % 07/29/19 00:42 0 % 07/29/19 00:42 Nucleated RBC % Not Reportable 07/29/19 00:42 Seg Neutrophils # Man 1.6 K/mm3 (1.8-7.7) L 07/29/19 00:42 Band Neutrophils # 0.0 K/mm3 07/29/19 00:42 0.3 K/mm3 (1.2-5.4) L 07/29/19 00:42 Abs React Lymphs (Man) 0.0 K/mm3 07/29/19 00:42 0.0 K/mm3 (0.0-0.8) 07/29/19 00:42 0.0 K/mm3 (0.0-0.4) 07/29/19 00:42 0.0 K/mm3 (0.0-0.1) 07/29/19 00:42 0.0 K/mm3 07/29/19 00:42 0.0 K/mm3 07/29/19 00:42 0.0 K/mm3 07/29/19 00:42 Blast Cells # 0.0 K/mm3 07/29/19 00:42 WBC Morphology Not Reportable 07/29/19 00:42 Hypersegmented Neuts Not Reportable 07/29/19 00:42 Hyposegmented Neuts Not Reportable 07/29/19 00:42 Hypogranular Neuts Not Reportable 07/29/19 00:42 Not Reportable 07/29/19 00:42 Not Reportable 07/29/19 00:42 Not Reportable 07/29/19 00:42 Not Reportable 07/29/19 00:42 Not Reportable 07/29/19 00:42 Not Reportable 07/29/19 00:42 Not Reportable 07/29/19 00:42 Not Reportable 07/29/19 00:42 Plt Clumps, EDTA Not Reportable 07/29/19 00:42 Not Reportable 07/29/19 00:42 Not Reportable 07/29/19 00:42 Not Reportable 07/29/19 00:42 Plt Morphology Comment Not Reportable 07/29/19 00:42 RBC Morphology Not Reportable 07/29/19 00:42 Dimorphic RBCs Not Reportable 07/29/19 00:42 Not Reportable 07/29/19 00:42 Not Reportable 07/29/19 00:42 Not Reportable 07/29/19 00:42 2+ 07/29/19 00:42 Not Reportable 07/29/19 00:42 Not Reportable 07/29/19 00:42 Not Reportable 07/29/19 00:42 Not Reportable 07/29/19 00:42 Not Reportable 07/29/19 00:42 Not Reportable 07/29/19 00:42 Not Reportable 07/29/19 00:42 Not Reportable 07/29/19 00:42 Not Reportable 07/29/19 00:42 Not Reportable 07/29/19 00:42 Not Reportable 07/29/19 00:42 Not Reportable 07/29/19 00:42 Not Reportable 07/29/19 00:42 Not Reportable 07/29/19 00:42 Not Reportable 07/29/19 00:42 Acanthocytes (Spur) Not Reportable 07/29/19 00:42 Rouleaux Not Reportable 07/29/19 00:42 Not Reportable 07/29/19 00:42 Not Reportable 07/29/19 00:42 Not Reportable 07/29/19 00:42 Not Reportable 07/29/19 00:42 Hem Pathologist Commnt No 07/29/19 00:42 PT 13.8 Sec. (12.2-14.9) 07/29/19 00:42 INR 1.09 (0.87-1.13) 07/29/19 00:42 APTT 26.5 Sec. (24.2-36.6) 07/29/19 00:42 17.2 Sec. (15.1-19.6) 07/29/19 00:42 1354.97 ng/mlDDU (0-234) H 07/29/19 00:42 Sodium 143 mmol/L (137-145) 08/02/19 12:47 Potassium 4.0 mmol/L (3.6-5.0) 08/02/19 12:47 Chloride 108.2 mmol/L (98-107) H 08/02/19 12:47 Carbon Dioxide 26 mmol/L (22-30) 08/02/19 12:47 13 mmol/L 08/02/19 12:47 BUN 16 mg/dL (9-20) 08/02/19 12:47 1.0 mg/dL (0.8-1.5) 08/02/19 12:47 Estimated GFR > 60 ml/min 08/02/19 12:47 16 % 08/02/19 12:47 Glucose 100 mg/dL (75-100) 08/02/19 12:47 POC Glucose 136 (70-105) H 07/31/19 08:28 Lactic Acid 1.80 mmol/L (0.7-2.0) 07/29/19 12:58 Calcium 8.8 mg/dL (8.4-10.2) 08/02/19 12:47 Iron 82 ug/dL (49-181) 08/01/19 06:54 TIBC 224 mcg/dL (250-450) L 08/01/19 06:54 1110.0 ng/mL (13.0-400.0) H 08/01/19 06:54 0.30 mg/dL (0.1-1.2) 08/02/19 12:47 AST 21 units/L (5-40) 08/02/19 12:47 ALT 17 units/L (7-56) 08/02/19 12:47 63 units/L (35-129) 08/02/19 12:47 184 units/L (55-170) H 07/29/19 12:58 CK-MB (CK-2) 2.8 ng/mL (0.0-4.0) 07/29/19 12:58 CK-MB (CK-2) Rel Index 1.5 (0-4) 07/29/19 12:58 0.114 ng/mL (0.00-0.029) H* D 07/29/19 10:44 NT-Pro-B Natriuret Pep 1767 pg/mL (0-900) H 07/29/19 02:03 7.3 g/dL (6.3-8.2) 08/02/19 12:47 3.1 g/dL (3.9-5) L 08/02/19 12:47 0.7 % 08/02/19 12:47 Triglycerides TNR 07/29/19 00:42 Cholesterol TNR 07/29/19 00:42 TNR 07/29/19 00:42 TNR 07/29/19 00:42 TNR 07/29/19 00:42 Vitamin B12 1858 pg/mL (211-911) H 08/01/19 06:54 15.28 ng/mL (7.3-26.0) 08/01/19 06:54 Yellow (Yellow) 07/29/19 01:50 Slightly-cloudy (Clear) 07/29/19 01:50 5.0 (5.0-7.0) 07/29/19 01:50 Ur Specific [place] 1.017 (1.003-1.030) 07/29/19 01:50 100 mg/dl mg/dL (Negative) 07/29/19 01:50 Neg mg/dL (Negative) 07/29/19 01:50 Neg mg/dL (Negative) 07/29/19 01:50 Mod (Negative) 07/29/19 01:50 Pos (Negative) 07/29/19 01:50 Neg (Negative) 07/29/19 01:50 2.0 mg/dL (<2.0) 07/29/19 01:50 Ur Leukocyte Esterase Tr (Negative) 07/29/19 01:50 10.0 /HPF (0.0-6.0) H 07/29/19 01:50 41.0 /HPF (0.0-6.0) 07/29/19 01:50 U Epithel Cells (Auto) 1.0 /HPF (0-13.0) 07/29/19 01:50 2+ /HPF (Negative) 07/29/19 01:50 Few /HPF 07/29/19 01:50 Clear 07/30/19 12:00 Colorless 07/30/19 12:00 3 /mm3 (1-10) 07/30/19 12:00 75 /mm3 (0-0) 07/30/19 12:00 CSF Seg Neutrophils 5.6 % (0-6) 07/30/19 12:00 88.9 % (40-80) 07/30/19 12:00 CSF Reactive Lymphs 0 % 07/30/19 12:00 5.6 % (15-45) 07/30/19 12:00 0 % 07/30/19 12:00 0 % 07/30/19 12:00 C 07/30/19 12:00 64 mg/dL 07/30/19 12:00 31 mg/dL 07/30/19 12:00 Nonreactive (Nonreactive) 07/30/19 12:00 Vancomycin Trough 19.6 ug/mL (5.0-20.0) 08/01/19 07:50 Active Medications - Current Medications Current Medications: Generic Name Dose Route Start Last Admin Trade Name Freq PRN Reason Stop Dose Admin Acetaminophen 650 mg 07/29/19 05:29 Tylenol PO Q4H PRN Pain, Mild (1-3), fever 100.5> Acetaminophen/Hydrocodone Bitart 1 each 07/29/19 21:50 08/02/19 10:44 [place] 5/325 PO 1 each Q4H PRN Administration Pain, Moderate (4-6) Lipase/Protease/Amylase 1 each 07/29/19 14:[address] 10,500 Unit FEEDTUBE PRN PRN For Clogged Feeding Tube Aspirin 325 mg 07/29/19 10:00 08/02/19 10:48 Aspirin PO 325 mg QDAY LESLIE Administration Atorvastatin Calcium 80 mg 07/29/19 22:00 08/02/19 21:38 Lipitor PO 80 mg QHS LESLIE Administration Bisacodyl 10 mg 07/29/19 05:29 Dulcolax MA QDAY PRN Constipation Hydralazine HCl 10 mg 08/01/19 05:00 08/01/19 05:19 Apresoline IV 10 mg Q4HR PRN Administration Hypertension Hydroxyurea 500 mg 08/02/19 10:00 Hydrea PO 3XW LESLIE Sodium Chloride 1,000 mls @ 125 mls/hr 07/29/19 13:00 07/31/19 05:11 Nacl 0.9% 1000 Ml IV 125 mls/hr DIRECT LESLIE Administration Ampicillin Sodium 2 gm in 100 mls @ 100 mls/hr 08/02/19 16:00 08/03/19 04:45 Ampicillin/Ns 2 Gm/100 Ml IV 08/03/19 20:59 100 mls/hr Q4H LESLIE Administration Ceftriaxone Sodium 2 gm in 100 mls @ 200 mls/hr 08/02/19 15:30 08/03/19 03:05 Rocephin/Ns 2 Gm/100 Ml IV 200 mls/hr Q12H LESLIE Administration Protocol Lisinopril 20 mg 07/29/19 10:00 08/02/19 10:43 Zestril PO 20 mg QDAY LESLIE Administration Lorazepam 1 mg 07/29/19 06:42 Ativan IV Q4H PRN Seizures Magnesium Hydroxide 30 ml 07/29/19 05:29 Milk Of Magnesia PO Q4H PRN Constipation Metoprolol Tartrate 50 mg 07/29/19 10:00 08/02/19 21:39 Lopressor PO 50 mg BID LESLIE Administration Ondansetron HCl 4 mg 07/29/19 05:29 Zofran IV Q6H PRN Nausea And Vomiting Simple Syrup 15 ml 07/29/19 14:30 Simple Syrup FEEDTUBE PRN PRN Hypoglycemia Simple Syrup 30 ml 07/29/19 14:30 Simple Syrup FEEDTUBE PRN PRN Hypoglycemia Sodium Bicarbonate 325 mg 07/29/19 14:30 Sodium Bicarbonate FEEDTUBE PRN PRN For Clogged Feeding Tube Sodium Chloride 10 ml 07/29/19 05:29 Sodium Chloride Flush Syringe 10 Ml IV PRN PRN LINE FLUSH Nutrition/Malnutrition Assess - Dietary Evaluation Nutrition/Malnutrition Findings: Nutrition Notes Start: 07/29/19 14:00 Freq: Status: Active Protocol: Document 08/01/19 11:59 DW (Rec: 08/01/19 12:33 DW [id number]) Co-Sign 08/01/19 11:59 LM Nutrition Notes Initial or Follow up Reassessment Current Diagnosis COPD,Sepsis,Hypertension, Hyperlipidemia Other Pertinent Diagnosis Hx CVA X 2, Nonverbal,UTI,Pneu Current Diet Mechanical Soft Labs/Tests Reviewed Pertinent Medications Reviewed Height 5 ft 9 in Weight 83.5 kg [place] Body Weight (kg) 72.72 BMI 27.1 Subjective/Other Information Pt was heavily sedated on medication. Per nurse pt refused to eat breakfast this morning when tech tried feeding him. Percent of energy/protein needs met: 0%/0% Burn Absent Trauma Absent GI Symptoms None Minimum of two criteria No #1 Nutrition Diagnosis Inadequate oral intake As Evidenced by Signs and Symptoms 0% of breakfast consumed Diagnosis Progress(for reassessment Continues documentation) Is patient on ventilator? No Is Patient Ambulatory and/or Out of Bed No REE-([facility]-confined to bed) 2007.536 Calculation Used for Recommendations [facility] Additional Notes PRO needs: 67-84g (0.8-1g/kg) Fluid needs: 1 mL/kcal Nutrition Intervention Change Diet Order: Continue Current Diet Add Supplement/Snack (indicate name/kcal Ensure Enlive BID /protein ) Provides kCal: 700 Provides Protein (gm) 40 Goal #1 Meet atleast 75% of kcal/PRO needs via PO/ONS Anticipated Discharge Needs: Mechanical Soft Diet Follow-Up By: 08/05/19 Additional Comments FU PO/ONS intake
[2019-08-03] MEDS: ASPIRIN PO SCH (09:24)
[2019-08-03] MEDS: METOPROLOL PO SCH ×2 (09:24→21:00)
[2019-08-03] MEDS: ZESTRIL PO SCH (09:24)
--- NOTE | 2019-08-03 09:26 | Progress Note ---
Assessment and Plan 1. Mitral valve endocarditis with moderate mitral regurgitation. Normal left ventricular size with normal global left ventricular function LVEF 55-60% 2. Chronic obstructive pulmonary disease 3. Essential hypertension 4. History of CVA Plan. Continue present antibiotic treatment. Subjective Date of service: 08/03/19 Principal diagnosis: JAK2 - CMPD Interval history: No cardiac symptoms. Objective Vital Signs Temp Pulse Pulse Resp Resp BP Pulse Ox 08/03/19 05:39 97.9 F 08/03/19 05:38 70 18 133/80 99 08/02/19 22:45 98.1 F 08/02/19 22:43 63 18 120/72 100 08/02/19 22:00 69 69 18 100 08/02/19 21:39 69 144/77 08/02/19 20:51 98.3 F 08/02/19 20:49 69 20 144/77 100 08/02/19 19:15 98 08/02/19 16:22 99.8 F H 41 L 24 121/58 99 08/02/19 16:02 97.7 F 71 16 130/70 98 08/02/19 11:44 20 08/02/19 10:45 66 138/78 08/02/19 10:44 20 08/02/19 10:43 66 138/78 08/02/19 10:00 76 80 20 20 98 08/02/19 09:33 96 - Physical Examination General: No Apparent Distress HEENT: Positive: PERRL Neck: Positive: trachea midline Cardiac: Positive: Regular Rate, Regular Rhythm, S1/S2, Systolic Murmur Lungs: Positive: clear to auscultation, No Wheeze, Rales, Rhonchi Neuro: Positive: Weakness Abdomen: Positive: Unremarkable, Active Bowel Sounds Extremities: Absent: edema - Labs and Meds Cardiac Enzymes 08/02/19 Range/Units 12:47 AST 21 (5-40) units/L Comprehensive Metabolic Panel 08/02/19 Range/Units 12:47 Sodium 143 (137-145) mmol/L Potassium 4.0 (3.6-5.0) mmol/L Chloride 108.2 H (98-107) mmol/L Carbon Dioxide 26 (22-30) mmol/L BUN 16 (9-20) mg/dL Creatinine 1.0 (0.8-1.5) mg/dL Glucose 100 (75-100) mg/dL Calcium 8.8 (8.4-10.2) mg/dL AST 21 (5-40) units/L ALT 17 (7-56) units/L Alkaline Phosphatase 63 (35-129) units/L Total Protein 7.3 (6.3-8.2) g/dL Albumin 3.1 L (3.9-5) g/dL
--- NOTE | 2019-08-03 15:53 | Hem/Onc Progress Note ---
Assessment and Plan 1. h/o Unresponsiveness, history of fever. ID team following. 2. JAK2 mutation. The patient was on hydroxyurea, white cell count was low, Hydrea had been held. 3. History of chronic obstructive pulmonary disease. 4. History of hypertension. 5. History of hyperlipidemia. 6. History of cerebrovascular accident. 7. History of left renal cell cancer removal. 8. V/Q scan is negative for pulmonary embolism. 9. Lumbar puncture was ordered by ID. 10. I will follow the patient during inpatient stay. pt awake - but speech slurred follows command of moving legs and opening mouth as per old notes - pt had been with Dr Frankel He was admitted to [facility] in feb 2019 - with CVA 08/03 - CT head done ID - Infective endocardititis pt was on hydrea for CMPD -restarted same - this was held as WBC was low - Patient Problems (1) Myeloproliferative disease Current Visit: No Status: Acute Subjective Date of service: 08/03/19 Principal diagnosis: CMPD - I endocarditis Interval history: slurred speech Objective - Exam Narrative Exam: Pain - n/a General appearance - awake - but slurred speech Performance status complete dependence Eyes - no icterus ENT - no bleeding LNs cervical not palpable Neck - no LN Respiratory Normal Breath sounds - CTA anteriorly CVS S1 S2 + Extremities no calf tenderness General GI Soft Rectal deferred male - deferred Skin warm Musculoskeletal moving extremitites Neurologically awake - slurred speech - Constitutional Vitals: Last Vital Signs Temp 98.4 F 08/03/19 12:17 Pulse 77 08/03/19 12:17 Resp 20 08/03/19 12:17 BP 150/87 08/03/19 12:17 Pulse Ox 94 08/03/19 12:17 Medications & Allergies - Medications Allergies/Adverse Reactions: Allergies No Known Allergies Allergy (Unverified 07/17/14 19:25) Home Medications: Home Medications Medication Instructions Recorded Confirmed Last Taken Type Metoprolol Tartrate 50 mg PO BID 03/05/19 07/29/19 07/28/19 History QUEtiapine 50 mg PO DAILY 03/05/19 07/29/19 Unknown History Aspirin 325 mg PO QDAY tablet 03/11/19 07/29/19 07/29/19 17:39 Rx AtorvaSTATin [Lipitor] 80 mg PO QHS tablet 03/11/19 07/29/19 Unknown Rx Hydroxyurea [Hydrea] 500 mg PO QDAY capsule 03/11/19 07/29/19 07/28/19 Rx Lisinopril [Zestril TAB] 20 mg PO QDAY tablet 03/11/19 07/29/19 Unknown Rx traZODone [Desyrel] 50 mg PO QDAY PRN tablet 03/11/19 07/29/19 Unknown Rx Active Medications: Generic Name Dose Route Start Last Admin Trade Name [place] PRN Reason Stop Dose Admin Acetaminophen 650 mg 07/29/19 05:29 Tylenol PO Q4H PRN Pain, Mild (1-3), fever 100.5> Acetaminophen/Hydrocodone Bitart 1 each 07/29/19 21:50 08/02/19 10:44 [place] 5/325 PO 1 each Q4H PRN Administration Pain, Moderate (4-6) Lipase/Protease/Amylase 1 each 07/29/19 14:[address] 10,500 Unit FEEDTUBE PRN PRN For Clogged Feeding Tube Aspirin 325 mg 07/29/19 10:00 08/03/19 09:24 Aspirin PO 325 mg QDAY LESLIE Administration Atorvastatin Calcium 80 mg 07/29/19 22:00 08/02/19 21:38 Lipitor PO 80 mg QHS LESLIE Administration Bisacodyl 10 mg 07/29/19 05:29 Dulcolax [place] QDAY PRN Constipation Hydralazine HCl 10 mg 08/01/19 05:00 08/01/19 05:19 Apresoline IV 10 mg Q4HR PRN Administration Hypertension Hydroxyurea 500 mg 08/03/19 15:00 Hydrea PO TuThSa@1000 LESLIE Sodium Chloride 1,000 mls @ 125 mls/hr 07/29/19 13:00 07/31/19 05:11 Nacl 0.9% 1000 Ml IV 125 mls/hr DIRECT LESLIE Administration Ampicillin Sodium 2 gm in 100 mls @ 100 mls/hr 08/02/19 16:00 08/03/19 12:38 Ampicillin/Ns 2 Gm/100 Ml IV 08/03/19 20:59 100 mls/hr Q4H LESLIE Administration Ceftriaxone Sodium 2 gm in 100 mls @ 200 mls/hr 08/02/19 15:30 08/03/19 03:05 Rocephin/Ns 2 Gm/100 Ml IV 200 mls/hr Q12H LESLIE Administration Protocol Lisinopril 20 mg 07/29/19 10:00 08/03/19 09:24 Zestril PO 20 mg QDAY LESLIE Administration Lorazepam 1 mg 07/29/19 06:42 Ativan IV Q4H PRN Seizures Magnesium Hydroxide 30 ml 07/29/19 05:29 Milk Of Magnesia PO Q4H PRN Constipation Metoprolol Tartrate 50 mg 07/29/19 10:00 08/03/19 09:24 Lopressor PO 50 mg BID LESLIE Administration Ondansetron HCl 4 mg 07/29/19 05:29 Zofran IV Q6H PRN Nausea And Vomiting Simple Syrup 15 ml 07/29/19 14:30 Simple Syrup FEEDTUBE PRN PRN Hypoglycemia Simple Syrup 30 ml 07/29/19 14:30 Simple Syrup FEEDTUBE PRN PRN Hypoglycemia Sodium Bicarbonate 325 mg 07/29/19 14:30 Sodium Bicarbonate FEEDTUBE PRN PRN For Clogged Feeding Tube Sodium Chloride 10 ml 07/29/19 05:29 Sodium Chloride Flush Syringe 10 Ml IV PRN PRN LINE FLUSH
[2019-08-03] MEDS: HYDROXYUREA PO SCH (16:13)
[2019-08-03] MEDS ORDERED: LASIX IV ONE (18:55)
[2019-08-03] MEDS ORDERED: LASIX ONE (18:58)
[2019-08-03] MEDS: SODIUM CHLORIDE FLUSH SYRINGE 10 ML IV PRN (21:01)
[2019-08-03 21:50] LABS: BUN/Creatinine Ratio 18; Blood Urea Nitrogen 16 mg/dL (9-20); Calcium 8.1 mg/dL (8.4-10.2); Hemolysis Index 16
[2019-08-04] MEDS: ROCEPHIN/NS 2 GM/100 ML 2 GM/100 ML BAG IV SCH ×2 (04:30→16:16)
[2019-08-04] MEDS: ASPIRIN PO SCH (09:14)
[2019-08-04] MEDS: ZESTRIL PO SCH (09:15)
[2019-08-04] MEDS: METOPROLOL PO SCH ×2 (09:15→21:12)
--- NOTE | 2019-08-04 10:11 | Progress Note ---
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 He is unable to provide history history is provided by son (who is present at bedside) and via telephone and medical records. According to patient's family patient was transferred to [facility]. Approximately 1.5hours later he was found to be less responsive with difficulty breathing. EMS was called. Upon EMS' arrival to home he was found to be hypertensive with SBP in 200's, febrile, and tachy cardic with audible wheezing. He was given albuterol nebulizer treatment. 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 Otherwise, the CTA of the head appears unremarkable CTA neck with and without contrast: There is mild calcified plaque involving the proximal left ICA. However, there no CTA evidence of significant stenosis involving cervical carotid or vertebral arteries by NASCET criteria. CXR: There is mild increase in interstitial markings bilaterally likely representing mild edema. Cultures: 07/29/2019 Blood culture: Enterococcus faecalis Urine culture: mixed growth 07/30/2019 Blood culture: no growth at 48 hours ECHO: 1. Mitral valve vegetation. 2. Moderate MR. 3. Normal LV function EF 55-60%. 4. Mild-moderate AR. Sepsis secondary to Acute mitral valve endocarditis with Enterococcus: TTE showed mitral valve vegetation. Appreciate Cardiology recs, no surgical intervention. -Picc line placed. discontinued Vancomycin. 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 Discussed with Case Management, orders placed. -LP done, doubt meningitis from preliminary studies, isolation discontinued - Mitral valve vegetation ?Endocarditis, await further review by ID -Tmax 104.8 on admission -Lactic acid on admission 2.9 -Received IV fluid resuscitation -On IV ABX as noted above UTI- Ruled out as source -Urine WBC 10.0 -Urine culture no growth -On IV Abx Pneumonia -CXR shows mild increase in interstitial markings bilaterally -Blood Cultures ENTERROCOCCUS -Continue on IV Abx Acute encephalopathy -Likely due to Sepsis or possibly seizure -Evaluated by Dr. Slaughter (tele-neurology) -Neuro Checks -Continue to monitor -Neurology consulted and input noted. Possible seizure rather than CVA also as evidenced by CT head, with no acute cva noted Suspicion of Seizure -CT negtive for cva -No history of prior seizure disorder -Not a candidate for TPA; asked normal normal 07/28 @2230 -stop kEPPRA PER NEUROLOGY -On able to obtain MRI -On Keppra -Ativan when necessary -Initiate seizure precautions Hypertension -Continue to monitor BP -Resume home antihypertensive meds to optimize BP History of CVA -Hemorrhagic CVA 11/2018 -Ischemic CVA 02/2019 -Right-sided residual deficits -PT/OT eval recommending home with home health -Continue aspirin and statin therapy Type 2 mi -Troponin elevated at 0.170 -Will continue to trend -Cardiology input noted Elevated d-dimer -D-dimer elevated at 1354.97 -V/Q scan negative for PE Thrombocytosis JAK2 positive DVT PPX -SCD's -Will defer anticoagulation to hematology Spoke to family who state that the patient sometimes may walk, some times talk, but declined in the last few months, Speech to start PO intake. Discharge once IV abx arranged asking for SSN form to be signed to enable them obtain information about the Disability as the patient is not able to speek due to the stroke. Patient is agreeable, will clear with Risk management if ok will sign document History Interval history: Follow up for Endocarditis Patient seen and examined, clinically improving, sitting up, moving all ext, and Son visiting. No adverse event reported overnight Hospitalist Physical - Physical exam Narrative exam: General appearance: Present: No distress nonverbal, well-developed, well- nourished, middle-aged - EENT Eyes: Present: PERRL, mild left facial droop ENT: normal dentition, gold tooth - Neck Neck: Present: supple, normal ROM - Respiratory Respiratory effort: Non-labored Respiratory: Diminished - Cardiovascular Heart Sounds: Present: S1 & S2. + Murmur Absent: rub, click - Extremities Extremities: no ischemia, pulses intact, - Peripheral Assessment Peripheral Pulses: within normal limits - Abdominal General gastrointestinal: soft, non-tender, normal bowel sounds - Integumentary Integumentary: Present: warm, dry - Musculoskeletal Musculoskeletal: generalized weakness, right-sided residual deficits at baseline -Neurological Neurological: awake, oriented x 2, slurred speech persist and chronic - Psychiatric Psychiatric: Normal affect - Constitutional Vitals: Temp Pulse Resp BP Pulse Ox 98.6 F 61 16 128/73 100 08/04/19 08:50 08/04/19 09:15 08/04/19 08:50 08/04/19 09:15 08/04/19 03:58 General appearance: Present: no acute distress Results - Labs CBC & Chem 7: 07/31/19 03:47 08/03/19 21:10 Labs: Laboratory Last Values WBC 9.5 K/mm3 (4.5-11.0) 07/31/19 03:47 RBC 2.54 M/mm3 (3.65-5.03) L 07/31/19 03:47 Hgb 9.1 gm/dl (11.8-15.2) L 07/31/19 03:47 Hct 27.0 % (35.5-45.6) L 07/31/19 03:47 MCV 107 fl (84-94) H 07/31/19 03:47 MCH 36 pg (28-32) H 07/31/19 03:47 MCHC 34 % (32-34) 07/31/19 03:47 RDW 25.1 % (13.2-15.2) H 07/31/19 03:47 Plt Count 210 K/mm3 (140-440) 07/31/19 03:47 Add Manual Diff Complete 07/29/19 00:42 Total Counted 100 07/29/19 00:42 Seg Neuts % (Manual) 82.0 % (40.0-70.0) H 07/29/19 00:42 0 % 07/29/19 00:42 16.0 % (13.4-35.0) 07/29/19 00:42 Reactive Lymphs % (Man) 0 % 07/29/19 00:42 1.0 % (0.0-7.3) 07/29/19 00:42 0 % (0.0-4.3) 07/29/19 00:42 1.0 % (0.0-1.8) 07/29/19 00:42 0 % 07/29/19 00:42 0 % 07/29/19 00:42 0 % 07/29/19 00:42 0 % 07/29/19 00:42 Nucleated RBC % Not Reportable 07/29/19 00:42 Seg Neutrophils # Man 1.6 K/mm3 (1.8-7.7) L 07/29/19 00:42 Band Neutrophils # 0.0 K/mm3 07/29/19 00:42 0.3 K/mm3 (1.2-5.4) L 07/29/19 00:42 Abs React Lymphs (Man) 0.0 K/mm3 07/29/19 00:42 0.0 K/mm3 (0.0-0.8) 07/29/19 00:42 0.0 K/mm3 (0.0-0.4) 07/29/19 00:42 0.0 K/mm3 (0.0-0.1) 07/29/19 00:42 0.0 K/mm3 07/29/19 00:42 0.0 K/mm3 07/29/19 00:42 0.0 K/mm3 07/29/19 00:42 Blast Cells # 0.0 K/mm3 07/29/19 00:42 WBC Morphology Not Reportable 07/29/19 00:42 Hypersegmented Neuts Not Reportable 07/29/19 00:42 Hyposegmented Neuts Not Reportable 07/29/19 00:42 Hypogranular Neuts Not Reportable 07/29/19 00:42 Not Reportable 07/29/19 00:42 Not Reportable 07/29/19 00:42 Not Reportable 07/29/19 00:42 Not Reportable 07/29/19 00:42 Not Reportable 07/29/19 00:42 Not Reportable 07/29/19 00:42 Not Reportable 07/29/19 00:42 Not Reportable 07/29/19 00:42 Plt Clumps, EDTA Not Reportable 07/29/19 00:42 Not Reportable 07/29/19 00:42 Not Reportable 07/29/19 00:42 Not Reportable 07/29/19 00:42 Plt Morphology Comment Not Reportable 07/29/19 00:42 RBC Morphology Not Reportable 07/29/19 00:42 Dimorphic RBCs Not Reportable 07/29/19 00:42 Not Reportable 07/29/19 00:42 Not Reportable 07/29/19 00:42 Not Reportable 07/29/19 00:42 2+ 07/29/19 00:42 Not Reportable 07/29/19 00:42 Not Reportable 07/29/19 00:42 Not Reportable 07/29/19 00:42 Not Reportable 07/29/19 00:42 Not Reportable 07/29/19 00:42 Not Reportable 07/29/19 00:42 Not Reportable 07/29/19 00:42 Not Reportable 07/29/19 00:42 Not Reportable 07/29/19 00:42 Not Reportable 07/29/19 00:42 Not Reportable 07/29/19 00:42 Not Reportable 07/29/19 00:42 Not Reportable 07/29/19 00:42 Not Reportable 07/29/19 00:42 Not Reportable 07/29/19 00:42 Acanthocytes (Spur) Not Reportable 07/29/19 00:42 Rouleaux Not Reportable 07/29/19 00:42 Not Reportable 07/29/19 00:42 Not Reportable 07/29/19 00:42 Not Reportable 07/29/19 00:42 Not Reportable 07/29/19 00:42 Hem Pathologist Commnt No 07/29/19 00:42 PT 13.8 Sec. (12.2-14.9) 07/29/19 00:42 INR 1.09 (0.87-1.13) 07/29/19 00:42 APTT 26.5 Sec. (24.2-36.6) 07/29/19 00:42 17.2 Sec. (15.1-19.6) 07/29/19 00:42 1354.97 ng/mlDDU (0-234) H 07/29/19 00:42 Sodium 140 mmol/L (137-145) 08/03/19 21:10 Potassium 3.9 mmol/L (3.6-5.0) 08/03/19 21:10 Chloride 104.1 mmol/L (98-107) 08/03/19 21:10 Carbon Dioxide 26 mmol/L (22-30) 08/03/19 21:10 14 mmol/L 08/03/19 21:10 BUN 16 mg/dL (9-20) 08/03/19 21:10 0.9 mg/dL (0.8-1.5) 08/03/19 21:10 Estimated GFR > 60 ml/min 08/03/19 21:10 18 % 08/03/19 21:10 Glucose 88 mg/dL (75-100) 08/03/19 21:10 POC Glucose 100 (70-105) 08/03/19 20:43 Lactic Acid 1.80 mmol/L (0.7-2.0) 07/29/19 12:58 Calcium 8.1 mg/dL (8.4-10.2) L 08/03/19 21:10 Iron 82 ug/dL (49-181) 08/01/19 06:54 TIBC 224 mcg/dL (250-450) L 08/01/19 06:54 1110.0 ng/mL (13.0-400.0) H 08/01/19 06:54 0.30 mg/dL (0.1-1.2) 08/02/19 12:47 AST 21 units/L (5-40) 08/02/19 12:47 ALT 17 units/L (7-56) 08/02/19 12:47 63 units/L (35-129) 08/02/19 12:47 184 units/L (55-170) H 07/29/19 12:58 CK-MB (CK-2) 2.8 ng/mL (0.0-4.0) 07/29/19 12:58 CK-MB (CK-2) Rel Index 1.5 (0-4) 07/29/19 12:58 0.114 ng/mL (0.00-0.029) H* D 07/29/19 10:44 NT-Pro-B Natriuret Pep 1767 pg/mL (0-900) H 07/29/19 02:03 7.3 g/dL (6.3-8.2) 08/02/19 12:47 3.1 g/dL (3.9-5) L 08/02/19 12:47 0.7 % 08/02/19 12:47 Triglycerides TNR 07/29/19 00:42 Cholesterol TNR 07/29/19 00:42 TNR 07/29/19 00:42 TNR 07/29/19 00:42 TNR 07/29/19 00:42 Vitamin B12 1858 pg/mL (211-911) H 08/01/19 06:54 15.28 ng/mL (7.3-26.0) 08/01/19 06:54 Yellow (Yellow) 07/29/19 01:50 Slightly-cloudy (Clear) 07/29/19 01:50 5.0 (5.0-7.0) 07/29/19 01:50 Ur Specific [place] 1.017 (1.003-1.030) 07/29/19 01:50 100 mg/dl mg/dL (Negative) 07/29/19 01:50 Neg mg/dL (Negative) 07/29/19 01:50 Neg mg/dL (Negative) 07/29/19 01:50 Mod (Negative) 07/29/19 01:50 Pos (Negative) 07/29/19 01:50 Neg (Negative) 07/29/19 01:50 2.0 mg/dL (<2.0) 07/29/19 01:50 Ur Leukocyte Esterase Tr (Negative) 07/29/19 01:50 10.0 /HPF (0.0-6.0) H 07/29/19 01:50 41.0 /HPF (0.0-6.0) 07/29/19 01:50 U Epithel Cells (Auto) 1.0 /HPF (0-13.0) 07/29/19 01:50 2+ /HPF (Negative) 07/29/19 01:50 Few /HPF 07/29/19 01:50 Clear 07/30/19 12:00 Colorless 07/30/19 12:00 3 /mm3 (1-10) 07/30/19 12:00 75 /mm3 (0-0) 07/30/19 12:00 CSF Seg Neutrophils 5.6 % (0-6) 07/30/19 12:00 88.9 % (40-80) 07/30/19 12:00 CSF Reactive Lymphs 0 % 07/30/19 12:00 5.6 % (15-45) 07/30/19 12:00 0 % 07/30/19 12:00 0 % 07/30/19 12:00 C 07/30/19 12:00 64 mg/dL 07/30/19 12:00 31 mg/dL 07/30/19 12:00 Nonreactive (Nonreactive) 07/30/19 12:00 Vancomycin Trough 19.6 ug/mL (5.0-20.0) 08/01/19 07:50 Active Medications - Current Medications Current Medications: Generic Name Dose Route Start Last Admin Trade Name Freq PRN Reason Stop Dose Admin Acetaminophen 650 mg 07/29/19 05:29 Tylenol PO Q4H PRN Pain, Mild (1-3), fever 100.5> Acetaminophen/Hydrocodone Bitart 1 each 07/29/19 21:50 08/02/19 10:44 [place] 5/325 PO 1 each Q4H PRN Administration Pain, Moderate (4-6) Lipase/Protease/Amylase 1 each 07/29/19 14:[address] 10,500 Unit FEEDTUBE PRN PRN For Clogged Feeding Tube Aspirin 325 mg 07/29/19 10:00 08/04/19 09:14 Aspirin PO 325 mg QDAY LESLIE Administration Atorvastatin Calcium 80 mg 07/29/19 22:00 08/03/19 20:59 Lipitor PO 80 mg QHS LESLIE Administration Bisacodyl 10 mg 07/29/19 05:29 Dulcolax IN QDAY PRN Constipation Hydralazine HCl 10 mg 08/01/19 05:00 08/01/19 05:19 Apresoline IV 10 mg Q4HR PRN Administration Hypertension Hydroxyurea 500 mg 08/03/19 15:00 08/03/19 16:13 Hydrea PO 500 mg TuThSa@1000 LESLIE Administration Sodium Chloride 1,000 mls @ 125 mls/hr 07/29/19 13:00 07/31/19 05:11 Nacl 0.9% 1000 Ml IV 125 mls/hr DIRECT LESLIE Administration Ceftriaxone Sodium 2 gm in 100 mls @ 200 mls/hr 08/02/19 15:30 08/04/19 04:30 Rocephin/Ns 2 Gm/100 Ml IV 200 mls/hr Q12H LESLIE Administration Protocol Lisinopril 20 mg 07/29/19 10:00 08/04/19 09:15 Zestril PO 20 mg QDAY LESLIE Administration Lorazepam 1 mg 07/29/19 06:42 Ativan IV Q4H PRN Seizures Magnesium Hydroxide 30 ml 07/29/19 05:29 Milk Of Magnesia PO Q4H PRN Constipation Metoprolol Tartrate 50 mg 07/29/19 10:00 08/04/19 09:15 Lopressor PO 50 mg BID LESLIE Administration Ondansetron HCl 4 mg 07/29/19 05:29 Zofran IV Q6H PRN Nausea And Vomiting Simple Syrup 15 ml 07/29/19 14:30 Simple Syrup FEEDTUBE PRN PRN Hypoglycemia Simple Syrup 30 ml 07/29/19 14:30 Simple Syrup FEEDTUBE PRN PRN Hypoglycemia Sodium Bicarbonate 325 mg 07/29/19 14:30 Sodium Bicarbonate FEEDTUBE PRN PRN For Clogged Feeding Tube Sodium Chloride 10 ml 07/29/19 05:29 08/03/19 21:01 Sodium Chloride Flush Syringe 10 Ml IV 10 ml PRN PRN Administration LINE FLUSH Nutrition/Malnutrition Assess - Dietary Evaluation Nutrition/Malnutrition Findings: Nutrition Notes Start: 07/29/19 14:00 Freq: Status: Active Protocol: Document 08/01/19 11:59 DW (Rec: 08/01/19 12:33 DW [id number]) Co-Sign 08/01/19 11:59 LM Nutrition Notes Initial or Follow up Reassessment Current Diagnosis COPD,Sepsis,Hypertension, Hyperlipidemia Other Pertinent Diagnosis Hx CVA X 2, Nonverbal,UTI,Pneu Current Diet Mechanical Soft Labs/Tests Reviewed Pertinent Medications Reviewed Height 5 ft 9 in Weight 83.5 kg [place] Body Weight (kg) 72.72 BMI 27.1 Subjective/Other Information Pt was heavily sedated on medication. Per nurse pt refused to eat breakfast this morning when tech tried feeding him. Percent of energy/protein needs met: 0%/0% Burn Absent Trauma Absent GI Symptoms None Minimum of two criteria No #1 Nutrition Diagnosis Inadequate oral intake As Evidenced by Signs and Symptoms 0% of breakfast consumed Diagnosis Progress(for reassessment Continues documentation) Is patient on ventilator? No Is Patient Ambulatory and/or Out of Bed No REE-([facility]-confined to bed) 2007.536 Calculation Used for Recommendations [facility] Additional Notes PRO needs: 67-84g (0.8-1g/kg) Fluid needs: 1 mL/kcal Nutrition Intervention Change Diet Order: Continue Current Diet Add Supplement/Snack (indicate name/kcal Ensure Enlive BID /protein ) Provides kCal: 700 Provides Protein (gm) 40 Goal #1 Meet atleast 75% of kcal/PRO needs via PO/ONS Anticipated Discharge Needs: Mechanical Soft Diet Follow-Up By: 08/05/19 Additional Comments FU PO/ONS intake - Attestation Statement I have reviewed and agreed w/ Malnutrition eval & tx plan: Yes
--- NOTE | 2019-08-04 10:35 | Progress Note ---
Assessment and Plan 1. Mitral valve endocarditis with moderate mitral regurgitation. Normal left ventricular size with normal global left ventricular function LVEF 55-60% 2. Chronic obstructive pulmonary disease 3. Essential hypertension 4. History of CVA Plan. Continue present antibiotic treatment. Subjective Date of service: 08/04/19 Principal diagnosis: CMPD - I endocarditis Interval history: No cardiac symptoms. Objective Vital Signs Temp Pulse Resp BP Pulse Ox 08/04/19 09:15 61 128/73 08/04/19 08:50 98.6 F 16 128/73 08/04/19 03:58 98.6 F 60 19 120/65 100 08/03/19 23:54 98.2 F 78 100 08/03/19 23:52 60 08/03/19 23:34 20 145/79 08/03/19 22:00 72 100 08/03/19 21:34 68 20 100 08/03/19 21:00 65 132/72 08/03/19 20:02 98.3 F 70 21 132/72 99 08/03/19 19:21 96 08/03/19 19:14 79 20 96 08/03/19 16:26 97.5 F L 75 20 157/89 99 08/03/19 12:17 98.4 F 77 20 150/87 94 - Physical Examination General: No Apparent Distress HEENT: Positive: PERRL Neck: Positive: trachea midline Cardiac: Positive: Regular Rate, S1/S2, Systolic Murmur, PMI, Laterally Displaced Lungs: Positive: clear to auscultation, No Wheeze, Rales, Rhonchi Neuro: Positive: Weakness Abdomen: Positive: Unremarkable, Active Bowel Sounds Extremities: Absent: edema - Labs and Meds Comprehensive Metabolic Panel 08/03/19 Range/Units 21:10 Sodium 140 (137-145) mmol/L Potassium 3.9 (3.6-5.0) mmol/L Chloride 104.1 (98-107) mmol/L Carbon Dioxide 26 (22-30) mmol/L BUN 16 (9-20) mg/dL Creatinine 0.9 (0.8-1.5) mg/dL Glucose 88 (75-100) mg/dL Calcium 8.1 L (8.4-10.2) mg/dL
[2019-08-05] MEDS: ROCEPHIN/NS 2 GM/100 ML 2 GM/100 ML BAG IV SCH ×2 (03:18→14:47)
--- NOTE | 2019-08-05 07:20 | Hem/Onc Progress Note ---
Assessment and Plan 1. h/o Unresponsiveness, history of fever. ID team following. 2. JAK2 mutation. The patient was on hydroxyurea, white cell count was low, Hydrea had been held. 3. History of chronic obstructive pulmonary disease. 4. History of hypertension. 5. History of hyperlipidemia. 6. History of cerebrovascular accident. 7. History of left renal cell cancer removal. 8. V/Q scan is negative for pulmonary embolism. 9. Lumbar puncture was ordered by ID. 10. I will follow the patient during inpatient stay. pt awake - but speech slurred follows command of moving legs and opening mouth as per old notes - pt had been with Dr Frankel He was admitted to [facility] in [facility]b 2019 - with CVA 08/05 ID - Infective endocardititis pt was on hydrea for CMPD - this was held as WBC was low restarted hydrea at a lower dose - Patient Problems (1) Myeloproliferative disease Current Visit: No Status: Acute Subjective Date of service: 08/05/19 Principal diagnosis: CMPD Interval history: slurred speech Objective - Exam Narrative Exam: Pain - n/a General appearance - awake - but slurred speech Performance status complete dependence Eyes - no icterus ENT - no bleeding LNs cervical not palpable Neck - no LN Respiratory Normal Breath sounds - CTA anteriorly CVS S1 S2 + Extremities no calf tenderness General GI Soft Rectal deferred male - deferred Skin warm Musculoskeletal moving extremitites Neurologically awake - slurred speech - Constitutional Vitals: Last Vital Signs Temp 97.9 F 08/05/19 04:34 Pulse 70 08/05/19 04:35 Resp 18 08/05/19 04:34 BP 139/77 08/05/19 04:34 Pulse Ox 100 08/05/19 04:35 Medications & Allergies - Medications Allergies/Adverse Reactions: Allergies No Known Allergies Allergy (Unverified 07/17/14 19:25) Home Medications: Home Medications Medication Instructions Recorded Confirmed Last Taken Type Metoprolol Tartrate 50 mg PO BID 03/05/19 07/29/19 07/28/19 History QUEtiapine 50 mg PO DAILY 03/05/19 07/29/19 Unknown History Aspirin 325 mg PO QDAY tablet 03/11/19 07/29/19 07/29/19 17:39 Rx AtorvaSTATin [Lipitor] 80 mg PO QHS tablet 03/11/19 07/29/19 Unknown Rx Hydroxyurea [Hydrea] 500 mg PO QDAY capsule 03/11/19 07/29/19 07/28/19 Rx Lisinopril [Zestril TAB] 20 mg PO QDAY tablet 03/11/19 07/29/19 Unknown Rx traZODone [Desyrel] 50 mg PO QDAY PRN tablet 03/11/19 07/29/19 Unknown Rx Active Medications: Generic Name Dose Route Start Last Admin Trade Name Freq PRN Reason Stop Dose Admin Acetaminophen 650 mg 07/29/19 05:29 Tylenol PO Q4H PRN Pain, Mild (1-3), fever 100.5> Acetaminophen/Hydrocodone Bitart 1 each 07/29/19 21:50 08/02/19 10:44 [place] 5/325 PO 1 each Q4H PRN Administration Pain, Moderate (4-6) Lipase/Protease/Amylase 1 each 07/29/19 14:[address] 10,500 Unit FEEDTUBE PRN PRN For Clogged Feeding Tube Aspirin 325 mg 07/29/19 10:00 08/04/19 09:14 Aspirin PO 325 mg QDAY LESLIE Administration Atorvastatin Calcium 80 mg 07/29/19 22:00 08/04/19 21:12 Lipitor PO 80 mg QHS LESLIE Administration Bisacodyl 10 mg 07/29/19 05:29 Dulcolax [place] QDAY PRN Constipation Hydralazine HCl 10 mg 08/01/19 05:00 08/01/19 05:19 Apresoline IV 10 mg Q4HR PRN Administration Hypertension Hydroxyurea 500 mg 08/03/19 15:00 08/03/19 16:13 Hydrea PO 500 mg TuThSa@1000 LESLIE Administration Sodium Chloride 1,000 mls @ 125 mls/hr 07/29/19 13:00 07/31/19 05:11 Nacl 0.9% 1000 Ml IV 125 mls/hr DIRECT LESLIE Administration Ceftriaxone Sodium 2 gm in 100 mls @ 200 mls/hr 08/02/19 15:30 08/05/19 03:18 Rocephin/Ns 2 Gm/100 Ml IV 200 mls/hr Q12H LESLIE Administration Protocol Lisinopril 20 mg 07/29/19 10:00 08/04/19 09:15 Zestril PO 20 mg QDAY LESLIE Administration Lorazepam 1 mg 07/29/19 06:42 Ativan IV Q4H PRN Seizures Magnesium Hydroxide 30 ml 07/29/19 05:29 Milk Of Magnesia PO Q4H PRN Constipation Metoprolol Tartrate 50 mg 07/29/19 10:00 08/04/19 21:12 Lopressor PO 50 mg BID LESLIE Administration Ondansetron HCl 4 mg 07/29/19 05:29 Zofran IV Q6H PRN Nausea And Vomiting Simple Syrup 15 ml 07/29/19 14:30 Simple Syrup FEEDTUBE PRN PRN Hypoglycemia Simple Syrup 30 ml 07/29/19 14:30 Simple Syrup FEEDTUBE PRN PRN Hypoglycemia Sodium Bicarbonate 325 mg 07/29/19 14:30 Sodium Bicarbonate FEEDTUBE PRN PRN For Clogged Feeding Tube Sodium Chloride 10 ml 07/29/19 05:29 08/03/19 21:01 Sodium Chloride Flush Syringe 10 Ml IV 10 ml PRN PRN Administration LINE FLUSH
[2019-08-05 08:52] LABS: Basophils # (Auto) 0.1 K/mm3 (0.0-0.1); Basophils % (Auto) 1.2 % (0.0-1.8); Eosinophils # (Auto) 0.2 K/mm3 (0.0-0.4); Eosinophils % (Auto) 2.8 % (0.0-4.3); Hematocrit 28.3 % (35.5-45.6); Hemoglobin 9.4 gm/dl (11.8-15.2); Lymphocytes # (Auto) 1.9 K/mm3 (1.2-5.4); Lymphocytes % (Auto) 35.6 % (13.4-35.0); Mean Corpuscular HGB Conc 33 % (32-34); Mean Corpuscular Volume 109 fl (84-94); Monocytes # (Auto) 0.4 K/mm3 (0.0-0.8); Monocytes % (Auto) 8.3 % (0.0-7.3); Platelet Count 304 K/mm3 (140-440); Red Blood Count 2.59 M/mm3 (3.65-5.03)
[2019-08-05 09:08] LABS: Alanine Aminotransferase 13 units/L (7-56); Albumin 3.2 g/dL (3.9-5); BUN/Creatinine Ratio 16; Blood Urea Nitrogen 14 mg/dL (9-20); Calcium 8.4 mg/dL (8.4-10.2); Hemolysis Index 0
[2019-08-05] MEDS: ASPIRIN PO SCH (09:23)
[2019-08-05] MEDS: ZESTRIL PO SCH (09:23)
[2019-08-05] MEDS: METOPROLOL PO SCH ×2 (09:24→22:36)
--- NOTE | 2019-08-05 09:53 | Progress Note ---
Assessment and Plan Sepsis secondary to endocarditis Acute mitral valve endocarditis Hx of COPD Hypertension Prior CVA Elevation of troponin ECG is sinus tachycardia, no acute ischemic changes. An repeat echocardiogram this admission revealed: 1. Mitral valve vegetation. 2. Moderate MR. 3. Normal LV function EF 55-60%. 4. Mild-moderate AR. Recommend: 6 weeks of appropriate intravenous antibiotic therapy, after which we will repeat the echocardiogram with Doppler. Subjective Date of service: 08/05/19 Principal diagnosis: CMPD Interval history: Patient is resting in bed comfortably. Awaits arrangement for home IV antibiotic therapy. Objective Vital Signs Temp Pulse Resp BP Pulse Ox 08/05/19 09:24 70 150/82 08/05/19 09:23 70 150/82 08/05/19 07:28 97.9 F 85 18 173/99 90 08/05/19 04:35 70 100 08/05/19 04:34 97.9 F 18 139/77 08/04/19 23:27 98.4 F 68 18 154/86 100 08/04/19 21:12 73 148/82 08/04/19 19:40 72 08/04/19 19:13 97.9 F 73 18 148/82 100 08/04/19 19:05 95 08/04/19 17:18 98.5 F 70 20 151/81 96 08/04/19 12:14 98 08/04/19 12:12 97.9 F 67 20 130/69 99 08/04/19 10:00 67 - Physical Examination General: No Apparent Distress HEENT: Positive: PERRL Neck: Positive: trachea midline Cardiac: Positive: Reg Rate and Rhythm Lungs: Positive: Decreased Breath Sounds Neuro: Positive: Weakness Extremities: Absent: edema - Labs and Meds Cardiac Enzymes 08/05/19 Range/Units 08:40 AST 19 (5-40) units/L CBC 08/05/19 Range/Units 08:40 WBC 5.4 (4.5-11.0) K/mm3 RBC 2.59 L (3.65-5.03) M/mm3 Hgb 9.4 L (11.8-15.2) gm/dl Hct 28.3 L (35.5-45.6) % Plt Count 304 (140-440) K/mm3 Lymph # 1.9 (1.2-5.4) K/mm3 [place] # 0.4 (0.0-0.8) K/mm3 Eos # 0.2 (0.0-0.4) K/mm3 Baso # 0.1 (0.0-0.1) K/mm3 Comprehensive Metabolic Panel 08/05/19 Range/Units 08:40 Sodium 143 (137-145) mmol/L Potassium 3.8 (3.6-5.0) mmol/L Chloride 105.1 (98-107) mmol/L Carbon Dioxide 29 (22-30) mmol/L BUN 14 (9-20) mg/dL Creatinine 0.9 (0.8-1.5) mg/dL Glucose 88 (75-100) mg/dL Calcium 8.4 (8.4-10.2) mg/dL AST 19 (5-40) units/L ALT 13 (7-56) units/L Alkaline Phosphatase 64 (35-129) units/L Total Protein 7.8 (6.3-8.2) g/dL Albumin 3.2 L (3.9-5) g/dL
[2019-08-05] MEDS: AMPICILLIN/NS 2 GM/100 ML 2 GM/100 ML BAG IV SCH ×4 (10:42→22:38)
--- NOTE | 2019-08-05 11:07 | Discharge Summary ---
Providers - Providers Date of Admission: 07/29/19 05:29 Attending physician: JUANCARLOS MCLEOD MD 07/29/19 Consult to Physician [CONS] Routine Comment: Consulting Provider: REINA BULLOCK Physician Instructions: Reason For Exam: seizure new onset, hx cva x2 07/29/19 05:29 Consult to Case Management [CONS] Routine Services Needed at Discharge: Home Health Services Notified:: cm notified Consult to Dietitian/Nutrition [CONS] Routine Physician Instructions: Reason For Exam: Reason for Consult: Nutrition Recommendations Reason for Consult: Write/Manage Tube Feeding Occupational Therapy Evaluate and Treat [CONS] Routine Comment: Reason For Exam: Neuro deficits Physical Therapy Evaluation and Treat [CONS] Routine Comment: Reason For Exam: Neuro deficits 07/29/19 05:32 Speech Therapy Evaluation and Treat [CONS] Routine Reason For Exam: swallow eval 07/29/19 06:35 Consult to Physician [CONS] Routine Comment: Consulting Provider: IVETH BARNETT Physician Instructions: Reason For Exam: elevated d-dimer, hx of hemorrhagic CVA 07/29/19 11:36 Consult to Physician [CONS] Routine Comment: Consulting Provider: LINDA HARO Physician Instructions: Reason For Exam: SEPSIS, AMS 07/29/19 12:28 Consult to Physician [CONS] Routine Comment: Consulting Provider: ANMOL POE Physician Instructions: Reason For Exam: positive troponin 07/30/19 14:54 Speech Therapy Evaluation and Treat [CONS] Routine Reason For Exam: ?mordified barium 08/01/19 16:46 Consult to PICC Line RN [CONS] Routine Reason For Exam: 6 WEEKS OF IV ABX Type Line:: PICC 08/02/19 12:49 Consult to Case Management [CONS] Routine Services Needed at Discharge: Other 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 Lines: Maintain IV access with weekly dressing changes and locks per protocol. Lab monitoring: - CBC with differential, Creatinine, ALT, AST, CRP once a week every Monday while on IV antibiotics. Please fax results to [phone] and call [phone] for critical lab results. 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 He is un able to provide history history is provided by son (who is present at bedside) and via telephone and medical records. According to patient's family patient was transferred to [facility]. Approximately 1.5hours later he was found to be less responsive with difficulty breathing. EMS was called. Upon EMS' arrival to home he was found to be hypertensive with SBP in 200's, febrile, and tachycardic with audible wheezing. He was given albuterol nebulizer treatment. 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 Otherwise, the CTA of the head appears unremarkable CTA neck with and without contrast: There is mild calcified plaque involving the proximal left ICA. However, there no CTA evidence of significant stenosis involving cervical carotid or vertebral arteries by NASCET criteria. CXR: There is mild increase in interstitial markings bilaterally likely representing mild edema. Cultures: 07/29/2019 Blood culture: Enterococcus faecalis Urine culture: mixed growth 07/30/2019 Blood culture: no growth at 48 hours ECHO: 1. Mitral valve vegetation. 2. Moderate MR. 3. Normal LV function EF 55-60%. 4. Mild-moderate AR. Sepsis secondary to Acute mitral valve endocarditis with Enterococcus: TTE showed mitral valve vegetation. Appreciate Cardiology recs, no surgical intervention. -Picc line placed. discontinued Vancomycin. 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 Discussed with Case Management, orders placed. -LP done, doubt meningitis from preliminary studies, isolation discontinued - Mitral valve vegetation ?Endocarditis, await further review by ID -Tmax 104.8 on admission -Lactic acid on admission 2.9 -Received IV fluid resuscitation -On IV ABX as noted above UTI- Ruled out as source -Urine WBC 10.0 -Urine culture no growth -On IV Abx Pneumonia -CXR shows mild increase in interstitial markings bilaterally -Blood Cultures ENTERROCOCCUS -Continue on IV Abx Acute encephalopathy -Likely due to Sepsis or possibly seizure -Evaluated by Dr. Slaughter (tele-neurology) -Neuro Checks -Continue to monitor -Neurology consulted and input noted. Possible seizure rather than CVA also as evidenced by CT head, with no acute cva noted Suspicion of Seizure -CT negtive for cva -No history of prior seizure disorder -Not a candidate for TPA; asked normal normal 07/28 @2230 -stop kEPPRA PER NEUROLOGY -On able to obtain MRI -On Keppra -Ativan when necessary -Initiate seizure precautions Hypertension -Continue to monitor BP -Resume home antihypertensive meds to optimize BP History of CVA -Hemorrhagic CVA 11/2018 -Ischemic CVA 02/2019 -Right-sided residual deficits -PT/OT eval recommending home with home health -Continue aspirin and statin therapy Type 2 mi -Troponin elevated at 0.170 -Will continue to trend -Cardiology input noted Elevated d-dimer -D-dimer elevated at 1354.97 -V/Q scan negative for PE Thrombocytosis JAK2 positive DVT PPX -SCD's -Will defer anticoagulation to hematology Spoke to family who state that the patient sometimes may walk, some times talk, but declined in the last few months, Speech to start PO intake. Discharge once IV abx arranged asking for SSN form to be signed to enable them obtain information about the Disability as the patient is not able to speek due to the stroke. Patient is agreeable, will clear with Risk management if ok will sign document Disposition: [id number] HOME UNDER HOME [facility] Time spent for discharge: 35 MINS Core Measure Documentation - Palliative Care Palliative Care/ Comfort Measures: Not Applicable - Core Measures Any of the following diagnoses?: none Exam - Physical Exam Narrative exam: General appearance: Present: No distress nonverbal, well-developed, well- nourished, middle-aged - EENT Eyes: Present: PERRL, mild left facial droop ENT: normal dentition, gold tooth - Neck Neck: Present: supple, normal ROM - Respiratory Respiratory effort: Non-labored Respiratory: Diminished - Cardiovascular Heart Sounds: Present: S1 & S2. + Murmur Absent: rub, click - Extremities Extremities: no ischemia, pulses intact, - Peripheral Assessment Peripheral Pulses: within normal limits - Abdominal General gastrointestinal: soft, non-tender, normal bowel sounds - Integumentary Integumentary: Present: warm, dry - Musculoskeletal Musculoskeletal: generalized weakness, right-sided residual deficits at baseline -Neurological Neurological: awake, oriented x 2, slurred speech persist and chronic - Psychiatric Psychiatric: Normal affect - Constitutional Vitals: Temp Pulse Resp BP Pulse Ox 97.9 F 70 18 150/82 90 08/05/19 07:28 08/05/19 09:24 08/05/19 07:28 08/05/19 09:24 08/05/19 07:28 Plan Activity: advance as tolerated, fall precautions Diet: low fat Special Instructions: record daily BP diary, record blood sugar diary Plan of Treatment: Antibiotics as arranged by ID Follow up with: SHAHRAM LAUGHLINTUCSON MD SCOTTIE [Primary Care Provider] - 3-5 Days ANABEL MENDOZA MD [Staff Physician] - 7 Days ANMOL POE MD [Staff Physician] - 6 Weeks Prescriptions: Hydroxyurea [Hydrea] 500 mg PO TuThSa@1000 #30 capsule
--- NOTE | 2019-08-05 15:27 | Progress Note ---
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 He is unable to provide history history is provided by son (who is present at bedside) and via telephone and medical records. According to patient's family patient was transferred to [facility] and [facility]. Approximately 1.5hours later he was found to be less responsive with difficulty breathing. EMS was called. Upon EMS' arrival to home he was found to be hypertensive with SBP in 200's, febrile, and tachy cardic with audible wheezing. He was given albuterol nebulizer treatment. 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 Otherwise, the CTA of the head appears unremarkable CTA neck with and without contrast: There is mild calcified plaque involving the proximal left ICA. However, there no CTA evidence of significant stenosis involving cervical carotid or vertebral arteries by NASCET criteria. CXR: There is mild increase in interstitial markings bilaterally likely representing mild edema. Cultures: 07/29/2019 Blood culture: Enterococcus faecalis Urine culture: mixed growth 07/30/2019 Blood culture: no growth at 48 hours ECHO: 1. Mitral valve vegetation. 2. Moderate MR. 3. Normal LV function EF 55-60%. 4. Mild-moderate AR. Sepsis secondary to Acute mitral valve endocarditis with Enterococcus: TTE showed mitral valve vegetation. Appreciate Cardiology recs, no surgical intervention. -Picc line placed. discontinued Vancomycin. 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 Discussed with Case Management, orders placed. -LP done, doubt meningitis from preliminary studies, isolation discontinued - Mitral valve vegetation -Tmax 104.8 on admission UTI- Ruled out as source -Urine WBC 10.0 -Urine culture no growth -On IV Abx Pneumonia -CXR shows mild increase in interstitial markings bilaterally -Blood Cultures ENTERROCOCCUS -Continue on IV Abx Acute encephalopathy secondary to Seizure precipitated by sepsis -Likely due to Sepsis or possibly seizure -Evaluated by Dr. Slaughter (tele-neurology) -Neuro Checks -Continue to monitor -Neurology consulted and input noted. Possible seizure rather than CVA also as evidenced by CT head, with no acute cva noted. No further AED since this is secondary to fever Hypertension -Continue to monitor BP -Resume home antihypertensive meds to optimize BP History of CVA -Hemorrhagic CVA 11/2018 -Ischemic CVA 02/2019 -Right-sided residual deficits -PT/OT eval recommending home with home health -Continue aspirin and statin therapy Type 2 mi -Troponin elevated at 0.170 -Will continue to trend -Cardiology input noted Elevated d-dimer -D-dimer elevated at 1354.97 -V/Q scan negative for PE Thrombocytosis JAK2 positive Dysphagia -Tolerating diet, although may need change in consistence due to intermittent cough, Barium study was negative. DVT PPX -SCD's -Will defer anticoagulation to hematology Spoke to family who state that the patient sometimes may walk, some times talk, but declined in the last few months, Speech to start PO intake. Discharge once IV abx arranged asking for SSN form to be signed to enable them obtain information about the Disability as the patient is not able to speek due to the stroke. Patient is agreeable, and risk management agreed. History Interval history: Follow up for Endocarditis Patient seen and examined, clinically improving, sitting up, moving all ext, and Son visiting. No adverse event reported overnight except intermittent cough. Hospitalist Physical - Physical exam Narrative exam: General appearance: Present: No distress nonverbal, well-developed, well- nourished, middle-aged - EENT Eyes: Present: PERRL, mild left facial droop ENT: normal dentition, gold tooth - Neck Neck: Present: supple, normal ROM - Respiratory Respiratory effort: Non-labored Respiratory: Diminished - Cardiovascular Heart Sounds: Present: S1 & S2. + Murmur Absent: rub, click - Extremities Extremities: no ischemia, pulses intact, - Peripheral Assessment Peripheral Pulses: within normal limits - Abdominal General gastrointestinal: soft, non-tender, normal bowel sounds - Integumentary Integumentary: Present: warm, dry - Musculoskeletal Musculoskeletal: generalized weakness, right-sided residual deficits at baseline -Neurological Neurological: awake, oriented x 2, slurred speech persist and chronic - Psychiatric Psychiatric: Normal affect - Constitutional Vitals: Temp Pulse Resp BP Pulse Ox 97.9 F 74 18 172/95 93 08/05/19 12:43 08/05/19 12:43 08/05/19 12:43 08/05/19 12:43 08/05/19 12:43 General appearance: Present: no acute distress Results - Labs CBC & Chem 7: 08/05/19 08:40 08/05/19 08:40 Labs: Laboratory Last Values WBC 5.4 K/mm3 (4.5-11.0) 08/05/19 08:40 RBC 2.59 M/mm3 (3.65-5.03) L 08/05/19 08:40 Hgb 9.4 gm/dl (11.8-15.2) L 08/05/19 08:40 Hct 28.3 % (35.5-45.6) L 08/05/19 08:40 MCV 109 fl (84-94) H 08/05/19 08:40 MCH 36 pg (28-32) H 08/05/19 08:40 MCHC 33 % (32-34) 08/05/19 08:40 RDW 24.0 % (13.2-15.2) H 08/05/19 08:40 Plt Count 304 K/mm3 (140-440) 08/05/19 08:40 Lymph % (Auto) 35.6 % (13.4-35.0) H 08/05/19 08:40 [place] % (Auto) 8.3 % (0.0-7.3) H 08/05/19 08:40 Eos % (Auto) 2.8 % (0.0-4.3) 08/05/19 08:40 Baso % (Auto) 1.2 % (0.0-1.8) 08/05/19 08:40 Lymph # 1.9 K/mm3 (1.2-5.4) 08/05/19 08:40 [place] # 0.4 K/mm3 (0.0-0.8) 08/05/19 08:40 Eos # 0.2 K/mm3 (0.0-0.4) 08/05/19 08:40 Baso # 0.1 K/mm3 (0.0-0.1) 08/05/19 08:40 Add Manual Diff Complete 07/29/19 00:42 Total Counted 100 07/29/19 00:42 Seg Neutrophils % 52.1 % (40.0-70.0) 08/05/19 08:40 Seg Neuts % (Manual) 82.0 % (40.0-70.0) H 07/29/19 00:42 0 % 07/29/19 00:42 16.0 % (13.4-35.0) 07/29/19 00:42 Reactive Lymphs % (Man) 0 % 07/29/19 00:42 1.0 % (0.0-7.3) 07/29/19 00:42 0 % (0.0-4.3) 07/29/19 00:42 1.0 % (0.0-1.8) 07/29/19 00:42 0 % 07/29/19 00:42 0 % 07/29/19 00:42 0 % 07/29/19 00:42 0 % 07/29/19 00:42 Nucleated RBC % Not Reportable 07/29/19 00:42 Seg Neutrophils # 2.8 K/mm3 (1.8-7.7) 08/05/19 08:40 Seg Neutrophils # Man 1.6 K/mm3 (1.8-7.7) L 07/29/19 00:42 Band Neutrophils # 0.0 K/mm3 07/29/19 00:42 0.3 K/mm3 (1.2-5.4) L 07/29/19 00:42 Abs React Lymphs (Man) 0.0 K/mm3 07/29/19 00:42 0.0 K/mm3 (0.0-0.8) 07/29/19 00:42 0.0 K/mm3 (0.0-0.4) 07/29/19 00:42 0.0 K/mm3 (0.0-0.1) 07/29/19 00:42 0.0 K/mm3 07/29/19 00:42 0.0 K/mm3 07/29/19 00:42 0.0 K/mm3 07/29/19 00:42 Blast Cells # 0.0 K/mm3 07/29/19 00:42 WBC Morphology Not Reportable 07/29/19 00:42 Hypersegmented Neuts Not Reportable 07/29/19 00:42 Hyposegmented Neuts Not Reportable 07/29/19 00:42 Hypogranular Neuts Not Reportable 07/29/19 00:42 Not Reportable 07/29/19 00:42 Not Reportable 07/29/19 00:42 Not Reportable 07/29/19 00:42 Not Reportable 07/29/19 00:42 Not Reportable 07/29/19 00:42 Not Reportable 07/29/19 00:42 Not Reportable 07/29/19 00:42 Not Reportable 07/29/19 00:42 Plt Clumps, EDTA Not Reportable 07/29/19 00:42 Not Reportable 07/29/19 00:42 Not Reportable 07/29/19 00:42 Not Reportable 07/29/19 00:42 Plt Morphology Comment Not Reportable 07/29/19 00:42 RBC Morphology Not Reportable 07/29/19 00:42 Dimorphic RBCs Not Reportable 07/29/19 00:42 Not Reportable 07/29/19 00:42 Not Reportable 07/29/19 00:42 Not Reportable 07/29/19 00:42 2+ 07/29/19 00:42 Not Reportable 07/29/19 00:42 Not Reportable 07/29/19 00:42 Not Reportable 07/29/19 00:42 Not Reportable 07/29/19 00:42 Not Reportable 07/29/19 00:42 Not Reportable 07/29/19 00:42 Not Reportable 07/29/19 00:42 Not Reportable 07/29/19 00:42 Not Reportable 07/29/19 00:42 Not Reportable 07/29/19 00:42 Not Reportable 07/29/19 00:42 Not Reportable 07/29/19 00:42 Not Reportable 07/29/19 00:42 Not Reportable 07/29/19 00:42 Not Reportable 07/29/19 00:42 Acanthocytes (Spur) Not Reportable 07/29/19 00:42 Rouleaux Not Reportable 07/29/19 00:42 Not Reportable 07/29/19 00:42 Not Reportable 07/29/19 00:42 Not Reportable 07/29/19 00:42 Not Reportable 07/29/19 00:42 Hem Pathologist Commnt No 07/29/19 00:42 PT 13.8 Sec. (12.2-14.9) 07/29/19 00:42 INR 1.09 (0.87-1.13) 07/29/19 00:42 APTT 26.5 Sec. (24.2-36.6) 07/29/19 00:42 17.2 Sec. (15.1-19.6) 07/29/19 00:42 1354.97 ng/mlDDU (0-234) H 07/29/19 00:42 Sodium 143 mmol/L (137-145) 08/05/19 08:40 Potassium 3.8 mmol/L (3.6-5.0) 08/05/19 08:40 Chloride 105.1 mmol/L (98-107) 08/05/19 08:40 Carbon Dioxide 29 mmol/L (22-30) 08/05/19 08:40 13 mmol/L 08/05/19 08:40 BUN 14 mg/dL (9-20) 08/05/19 08:40 0.9 mg/dL (0.8-1.5) 08/05/19 08:40 Estimated GFR > 60 ml/min 08/05/19 08:40 16 % 08/05/19 08:40 Glucose 88 mg/dL (75-100) 08/05/19 08:40 POC Glucose 100 (70-105) 08/03/19 20:43 Lactic Acid 1.80 mmol/L (0.7-2.0) 07/29/19 12:58 Calcium 8.4 mg/dL (8.4-10.2) 08/05/19 08:40 Iron 82 ug/dL (49-181) 08/01/19 06:54 TIBC 224 mcg/dL (250-450) L 08/01/19 06:54 1110.0 ng/mL (13.0-400.0) H 08/01/19 06:54 0.40 mg/dL (0.1-1.2) 08/05/19 08:40 AST 19 units/L (5-40) 08/05/19 08:40 ALT 13 units/L (7-56) 08/05/19 08:40 64 units/L (35-129) 08/05/19 08:40 184 units/L (55-170) H 07/29/19 12:58 CK-MB (CK-2) 2.8 ng/mL (0.0-4.0) 07/29/19 12:58 CK-MB (CK-2) Rel Index 1.5 (0-4) 07/29/19 12:58 0.114 ng/mL (0.00-0.029) H* D 07/29/19 10:44 NT-Pro-B Natriuret Pep 1767 pg/mL (0-900) H 07/29/19 02:03 7.8 g/dL (6.3-8.2) 08/05/19 08:40 3.2 g/dL (3.9-5) L 08/05/19 08:40 0.7 % 08/05/19 08:40 Triglycerides TNR 07/29/19 00:42 Cholesterol TNR 07/29/19 00:42 TNR 07/29/19 00:42 TNR 07/29/19 00:42 TNR 07/29/19 00:42 Vitamin B12 1858 pg/mL (211-911) H 08/01/19 06:54 15.28 ng/mL (7.3-26.0) 08/01/19 06:54 Yellow (Yellow) 07/29/19 01:50 Slightly-cloudy (Clear) 07/29/19 01:50 5.0 (5.0-7.0) 07/29/19 01:50 Ur Specific [place] 1.017 (1.003-1.030) 07/29/19 01:50 100 mg/dl mg/dL (Negative) 07/29/19 01:50 Neg mg/dL (Negative) 07/29/19 01:50 Neg mg/dL (Negative) 07/29/19 01:50 Mod (Negative) 07/29/19 01:50 Pos (Negative) 07/29/19 01:50 Neg (Negative) 07/29/19 01:50 2.0 mg/dL (<2.0) 07/29/19 01:50 Ur Leukocyte Esterase Tr (Negative) 07/29/19 01:50 10.0 /HPF (0.0-6.0) H 07/29/19 01:50 41.0 /HPF (0.0-6.0) 07/29/19 01:50 U Epithel Cells (Auto) 1.0 /HPF (0-13.0) 07/29/19 01:50 2+ /HPF (Negative) 07/29/19 01:50 Few /HPF 07/29/19 01:50 Clear 07/30/19 12:00 Colorless 07/30/19 12:00 3 /mm3 (1-10) 07/30/19 12:00 75 /mm3 (0-0) 07/30/19 12:00 CSF Seg Neutrophils 5.6 % (0-6) 07/30/19 12:00 88.9 % (40-80) 07/30/19 12:00 CSF Reactive Lymphs 0 % 07/30/19 12:00 5.6 % (15-45) 07/30/19 12:00 0 % 07/30/19 12:00 0 % 07/30/19 12:00 C 07/30/19 12:00 64 mg/dL 07/30/19 12:00 31 mg/dL 07/30/19 12:00 Nonreactive (Nonreactive) 07/30/19 12:00 Vancomycin Trough 19.6 ug/mL (5.0-20.0) 08/01/19 07:50 Active Medications - Current Medications Current Medications: Generic Name Dose Route Start Last Admin Trade Name Freq PRN Reason Stop Dose Admin Acetaminophen 650 mg 07/29/19 05:29 Tylenol PO Q4H PRN Pain, Mild (1-3), fever 100.5> Acetaminophen/Hydrocodone Bitart 1 each 07/29/19 21:50 08/02/19 10:44 [place] 5/325 PO 1 each Q4H PRN Administration Pain, Moderate (4-6) Lipase/Protease/Amylase 1 each 07/29/19 14:[address] 10,500 Unit FEEDTUBE PRN PRN For Clogged Feeding Tube Aspirin 325 mg 07/29/19 10:00 08/05/19 09:23 Aspirin PO 325 mg QDAY LESLIE Administration Atorvastatin Calcium 80 mg 07/29/19 22:00 08/04/19 21:12 Lipitor PO 80 mg QHS LESLIE Administration Bisacodyl 10 mg 07/29/19 05:[address] QDAY PRN Constipation Hydralazine HCl 10 mg 08/01/19 05:00 08/01/19 05:19 Apresoline IV 10 mg Q4HR PRN Administration Hypertension Hydroxyurea 500 mg 08/03/19 15:00 08/03/19 16:13 Hydrea PO 500 mg TuThSa@1000 LESLIE Administration Sodium Chloride 1,000 mls @ 125 mls/hr 07/29/19 13:00 07/31/19 05:11 Nacl 0.9% 1000 Ml IV 125 mls/hr DIRECT LESLIE Administration Ceftriaxone Sodium 2 gm in 100 mls @ 200 mls/hr 08/02/19 15:30 08/05/19 14:47 Rocephin/Ns 2 Gm/100 Ml IV 09/10/19 23:59 200 mls/hr Q12H LESLIE Administration Protocol Ampicillin Sodium 2 gm in 100 mls @ 100 mls/hr 08/05/19 10:00 08/05/19 14:17 Ampicillin/Ns 2 Gm/100 Ml IV 09/10/19 23:59 100 mls/hr Q4H LSELIE Administration Lisinopril 20 mg 07/29/19 10:00 08/05/19 09:23 Zestril PO 20 mg QDAY LESLIE Administration Lorazepam 1 mg 07/29/19 06:42 Ativan IV Q4H PRN Seizures Magnesium Hydroxide 30 ml 07/29/19 05:29 Milk Of Magnesia PO Q4H PRN Constipation Metoprolol Tartrate 50 mg 07/29/19 10:00 08/05/19 09:24 Lopressor PO 50 mg BID LESLIE Administration Ondansetron HCl 4 mg 07/29/19 05:29 Zofran IV Q6H PRN Nausea And Vomiting Simple Syrup 15 ml 07/29/19 14:30 Simple Syrup FEEDTUBE PRN PRN Hypoglycemia Simple Syrup 30 ml 07/29/19 14:30 Simple Syrup FEEDTUBE PRN PRN Hypoglycemia Sodium Bicarbonate 325 mg 07/29/19 14:30 Sodium Bicarbonate FEEDTUBE PRN PRN For Clogged Feeding Tube Sodium Chloride 10 ml 07/29/19 05:29 08/03/19 21:01 Sodium Chloride Flush Syringe 10 Ml IV 10 ml PRN PRN Administration LINE FLUSH Nutrition/Malnutrition Assess - Dietary Evaluation Nutrition/Malnutrition Findings: Nutrition Notes Start: 07/29/19 14:00 Freq: Status: Active Protocol: Document 08/05/19 13:31 RM (Rec: 08/05/19 13:43 RM [id number]) Nutrition Notes Initial or Follow up Reassessment Current Diagnosis COPD,Sepsis,Hypertension, Hyperlipidemia Other Pertinent Diagnosis Hx CVA X 2, Nonverbal,UTI,Pneu , Acute encephalopathy, Suspicion of seizure Current Diet Mechanical Soft w/chopped meats & Ensure Enlive Labs/Tests Reviewed Pertinent Medications Reviewed Height 5 ft 9 in Weight 82.4 kg [place] Body Weight (kg) 72.72 BMI 26.8 Subjective/Other Information ST previously saw pt and recommended current diet. Per nurse pt has not been eating or drinking d/t coughing when he attempts to eat. Stated that pt was able to take his medicine with a container of applesauce. Percent of energy/protein needs met: 0%/0% Burn Absent Trauma Absent Minimum of two criteria No #1 Nutrition Diagnosis Inadequate oral intake Diagnosis Progress(for reassessment Continues documentation) Is patient on ventilator? No Is Patient Ambulatory and/or Out of Bed No REE-(Person-. Viky-confined to bed) 1994.348 Calculation [facility]ations [facility] Additional Notes Protein needs: 124-140g (1.5-1 .7g/kg) Fluid needs: 1 mL/kcal Nutrition Intervention Change Diet Order: Pureed Add Supplement/Snack (indicate name/kcal D/C /protein ) Goal #1 ST to re-evaluate Goal #2 Meet at least 75% of calorie and protein needs via PO intakes Anticipated Discharge Needs: Unable to determine at this time Follow-Up By: 08/07/19 Additional Comments Follow for ST recommendation, PO intakes
[2019-08-05] MEDS: APRESOLINE IV PRN (18:46)
[2019-08-06] MEDS: AMPICILLIN/NS 2 GM/100 ML 2 GM/100 ML BAG IV SCH ×6 (02:50→22:34)
[2019-08-06] MEDS: ROCEPHIN/NS 2 GM/100 ML 2 GM/100 ML BAG IV SCH ×2 (03:55→15:30)
[2019-08-06 07:16] LABS: Hematocrit 28.5 % (35.5-45.6); Hemoglobin 9.5 gm/dl (11.8-15.2); Mean Corpuscular HGB Conc 33 % (32-34); Mean Corpuscular Volume 108 fl (84-94); Platelet Count 327 K/mm3 (140-440); Red Blood Count 2.64 M/mm3 (3.65-5.03)
[2019-08-06 07:17] LABS: Red Cell Distribution Width 23.4 % (13.2-15.2)
--- NOTE | 2019-08-06 07:58 | Progress Note ---
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 He is unable to provide history history is provided by son (who is present at bedside) and via telephone and medical records. According to patient's family patient was transferred to [facility]. Approximately 1.5hours later he was found to be less responsive with difficulty breathing. EMS was called. Upon EMS' arrival to home he was found to be hypertensive with SBP in 200's, febrile, and tachycardic with audible wheezing. He was given albuterol nebulizer treatment. 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 Otherwise, the CTA of the head appears unremarkable * CTA neck with and without contrast: There is mild calcified plaque involving the proximal left ICA. However, there no CTA evidence of significant stenosis involving cervical carotid or vertebral arteries by NASCET criteria. * CXR: There is mild increase in interstitial markings bilaterally likely representing mild edema. * 07/30/19 MRI brain without contrast Impression: No focal mass, acute hemorrhage, hydrocephalus or acute ischemia Cultures: 07/29/2019 Blood culture: Enterococcus faecalis Urine culture: mixed growth 07/30/2019 Blood culture: no growth at 48 hours TTE: 1. Mitral valve vegetation. 2. Moderate MR. 3. Normal LV function EF 55-60%. 4. Mild-moderate AR. Sepsis secondary to Acute mitral valve endocarditis with Enterococcus: TTE showed mitral valve vegetation. Appreciate Cardiology recs, no surgical intervention. -Picc line placed. discontinued Vancomycin. 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 Discussed with Case Management, orders placed. -LP done, doubt meningitis from preliminary studies, isolation discontinued - Mitral valve vegetation -Tmax 104.8 on admission UTI- Ruled out as source -Urine WBC 10.0 -Urine culture no growth -On IV Abx Pneumonia -CXR shows mild increase in interstitial markings bilaterally -Blood Cultures ENTERROCOCCUS -Continue on IV Abx Acute encephalopathy secondary to Seizure precipitated by sepsis -Likely due to Sepsis or possibly seizure -Evaluated by Dr. Slaughter (tele-neurology) -Neuro Checks -Continue to monitor -Neurology consulted and input noted. Possible seizure rather than CVA also as evidenced by CT head, with no acute cva noted. No further AED since this is secondary to fever Hypertension -Continue to monitor BP -Resume home antihypertensive meds to optimize BP History of CVA -Hemorrhagic CVA 11/2018 -Ischemic CVA 02/2019 -Right-sided residual deficits -PT/OT eval recommending home with home health -Continue aspirin and statin therapy Type 2 mi -Troponin elevated at 0.170 -Will continue to trend -Cardiology input noted Elevated d-dimer -D-dimer elevated at 1354.97 -V/Q scan negative for PE Thrombocytosis JAK2 positive Dysphagia -Tolerating diet, although may need change in consistence due to intermittent cough, Barium study was negative. DVT PPX -SCD's -Will defer anticoagulation to hematology Discharge once IV abx arranged asking for SSN form to be signed to enable them obtain information about the Disability as the patient is not able to speek due to the stroke. Patient is agreeable, and risk management agreed. History Interval history: Patient was seen and examined. Follow-up on current diagnosis of Endocarditis. No overnight events reported to me. Patient denies any chest pain, shortness breath, nausea/vomiting or severe headaches. Imaging, nursing note, chart, labs and old chart reviewed. Discussed with patient. Hospitalist Physical - Physical exam Narrative exam: Gen: WDWN, NAD, Awake, Alert, Orientated HEENT: NCAT, EOMI, PERRL, OP Clear Neck: supple, no adenopathy, no thyromegaly, no JVD CVS/Heart: RRR, normal S1S2, pulses present bilaterally Chest/Lungs: CTA B, Symmetrical chest expansion, good air entry bilaterally GI/Abdomen: soft, NTND, good bowel sounds, no guarding or rebound /Bladder: no suprapubic tenderness, no CVA or paraspinal tenderness Extermity/Skin: no c/c/e, no obvious rash MSK: FROM x 4 Neuro: CN 2-12 grossly intact, no new focal deficits but with residual deficits, expressive aphasia Psych: calm - Constitutional Vitals: Temp Pulse Resp BP Pulse Ox 97.9 F 78 18 162/86 94 08/06/19 07:26 08/06/19 07:26 08/06/19 07:26 08/06/19 07:26 08/06/19 07:26 General appearance: Present: no acute distress Results - Labs CBC & Chem 7: 08/06/19 06:00 08/05/19 08:40 Labs: Laboratory Last Values WBC 5.3 K/mm3 (4.5-11.0) 08/06/19 06:00 RBC 2.64 M/mm3 (3.65-5.03) L 08/06/19 06:00 Hgb 9.5 gm/dl (11.8-15.2) L 08/06/19 06:00 Hct 28.5 % (35.5-45.6) L 08/06/19 06:00 MCV 108 fl (84-94) H 08/06/19 06:00 MCH 36 pg (28-32) H 08/06/19 06:00 MCHC 33 % (32-34) 08/06/19 06:00 RDW 23.4 % (13.2-15.2) H 08/06/19 06:00 Plt Count 327 K/mm3 (140-440) 08/06/19 06:00 Lymph % (Auto) 35.6 % (13.4-35.0) H 08/05/19 08:40 Rankin % (Auto) 8.3 % (0.0-7.3) H 08/05/19 08:40 Eos % (Auto) 2.8 % (0.0-4.3) 08/05/19 08:40 Baso % (Auto) 1.2 % (0.0-1.8) 08/05/19 08:40 Lymph # 1.9 K/mm3 (1.2-5.4) 08/05/19 08:40 Rankin # 0.4 K/mm3 (0.0-0.8) 08/05/19 08:40 Eos # 0.2 K/mm3 (0.0-0.4) 08/05/19 08:40 Baso # 0.1 K/mm3 (0.0-0.1) 08/05/19 08:40 Add Manual Diff Complete 07/29/19 00:42 Total Counted 100 07/29/19 00:42 Seg Neutrophils % 52.1 % (40.0-70.0) 08/05/19 08:40 Seg Neuts % (Manual) 82.0 % (40.0-70.0) H 07/29/19 00:42 0 % 07/29/19 00:42 16.0 % (13.4-35.0) 07/29/19 00:42 Reactive Lymphs % (Man) 0 % 07/29/19 00:42 1.0 % (0.0-7.3) 07/29/19 00:42 0 % (0.0-4.3) 07/29/19 00:42 1.0 % (0.0-1.8) 07/29/19 00:42 0 % 07/29/19 00:42 0 % 07/29/19 00:42 0 % 07/29/19 00:42 0 % 07/29/19 00:42 Nucleated RBC % Not Reportable 07/29/19 00:42 Seg Neutrophils # 2.8 K/mm3 (1.8-7.7) 08/05/19 08:40 Seg Neutrophils # Man 1.6 K/mm3 (1.8-7.7) L 07/29/19 00:42 Band Neutrophils # 0.0 K/mm3 07/29/19 00:42 0.3 K/mm3 (1.2-5.4) L 07/29/19 00:42 Abs React Lymphs (Man) 0.0 K/mm3 07/29/19 00:42 0.0 K/mm3 (0.0-0.8) 07/29/19 00:42 0.0 K/mm3 (0.0-0.4) 07/29/19 00:42 0.0 K/mm3 (0.0-0.1) 07/29/19 00:42 0.0 K/mm3 07/29/19 00:42 0.0 K/mm3 07/29/19 00:42 0.0 K/mm3 07/29/19 00:42 Blast Cells # 0.0 K/mm3 07/29/19 00:42 WBC Morphology Not Reportable 07/29/19 00:42 Hypersegmented Neuts Not Reportable 07/29/19 00:42 Hyposegmented Neuts Not Reportable 07/29/19 00:42 Hypogranular Neuts Not Reportable 07/29/19 00:42 Not Reportable 07/29/19 00:42 Not Reportable 07/29/19 00:42 Not Reportable 07/29/19 00:42 Not Reportable 07/29/19 00:42 Not Reportable 07/29/19 00:42 Not Reportable 07/29/19 00:42 Not Reportable 07/29/19 00:42 Not Reportable 07/29/19 00:42 Plt Clumps, EDTA Not Reportable 07/29/19 00:42 Not Reportable 07/29/19 00:42 Not Reportable 07/29/19 00:42 Not Reportable 07/29/19 00:42 Plt Morphology Comment Not Reportable 07/29/19 00:42 RBC Morphology Not Reportable 07/29/19 00:42 Dimorphic RBCs Not Reportable 07/29/19 00:42 Not Reportable 07/29/19 00:42 Not Reportable 07/29/19 00:42 Not Reportable 07/29/19 00:42 2+ 07/29/19 00:42 Not Reportable 07/29/19 00:42 Not Reportable 07/29/19 00:42 Not Reportable 07/29/19 00:42 Not Reportable 07/29/19 00:42 Not Reportable 07/29/19 00:42 Not Reportable 07/29/19 00:42 Not Reportable 07/29/19 00:42 Not Reportable 07/29/19 00:42 Not Reportable 07/29/19 00:42 Not Reportable 07/29/19 00:42 Not Reportable 07/29/19 00:42 Not Reportable 07/29/19 00:42 Not Reportable 07/29/19 00:42 Not Reportable 07/29/19 00:42 Not Reportable 07/29/19 00:42 Acanthocytes (Spur) Not Reportable 07/29/19 00:42 Rouleaux Not Reportable 07/29/19 00:42 Not Reportable 07/29/19 00:42 Not Reportable 07/29/19 00:42 Not Reportable 07/29/19 00:42 Not Reportable 07/29/19 00:42 Hem Pathologist Commnt No 07/29/19 00:42 PT 13.8 Sec. (12.2-14.9) 07/29/19 00:42 INR 1.09 (0.87-1.13) 07/29/19 00:42 APTT 26.5 Sec. (24.2-36.6) 07/29/19 00:42 17.2 Sec. (15.1-19.6) 07/29/19 00:42 1354.97 ng/mlDDU (0-234) H 07/29/19 00:42 Sodium 143 mmol/L (137-145) 08/05/19 08:40 Potassium 3.8 mmol/L (3.6-5.0) 08/05/19 08:40 Chloride 105.1 mmol/L (98-107) 08/05/19 08:40 Carbon Dioxide 29 mmol/L (22-30) 08/05/19 08:40 13 mmol/L 08/05/19 08:40 BUN 14 mg/dL (9-20) 08/05/19 08:40 0.9 mg/dL (0.8-1.5) 08/05/19 08:40 Estimated GFR > 60 ml/min 08/05/19 08:40 16 % 08/05/19 08:40 Glucose 88 mg/dL (75-100) 08/05/19 08:40 POC Glucose 100 (70-105) 08/03/19 20:43 Lactic Acid 1.80 mmol/L (0.7-2.0) 07/29/19 12:58 Calcium 8.4 mg/dL (8.4-10.2) 08/05/19 08:40 Iron 82 ug/dL (49-181) 08/01/19 06:54 TIBC 224 mcg/dL (250-450) L 08/01/19 06:54 1110.0 ng/mL (13.0-400.0) H 08/01/19 06:54 0.40 mg/dL (0.1-1.2) 08/05/19 08:40 AST 19 units/L (5-40) 08/05/19 08:40 ALT 13 units/L (7-56) 08/05/19 08:40 64 units/L (35-129) 08/05/19 08:40 184 units/L (55-170) H 07/29/19 12:58 CK-MB (CK-2) 2.8 ng/mL (0.0-4.0) 07/29/19 12:58 CK-MB (CK-2) Rel Index 1.5 (0-4) 07/29/19 12:58 0.114 ng/mL (0.00-0.029) H* D 07/29/19 10:44 NT-Pro-B Natriuret Pep 1767 pg/mL (0-900) H 07/29/19 02:03 7.8 g/dL (6.3-8.2) 08/05/19 08:40 3.2 g/dL (3.9-5) L 08/05/19 08:40 0.7 % 08/05/19 08:40 Triglycerides TNR 07/29/19 00:42 Cholesterol TNR 07/29/19 00:42 TNR 07/29/19 00:42 TNR 07/29/19 00:42 TNR 07/29/19 00:42 Vitamin B12 1858 pg/mL (211-911) H 08/01/19 06:54 15.28 ng/mL (7.3-26.0) 08/01/19 06:54 Yellow (Yellow) 07/29/19 01:50 Slightly-cloudy (Clear) 07/29/19 01:50 5.0 (5.0-7.0) 07/29/19 01:50 Ur Specific [place] 1.017 (1.003-1.030) 07/29/19 01:50 100 mg/dl mg/dL (Negative) 07/29/19 01:50 Neg mg/dL (Negative) 07/29/19 01:50 Neg mg/dL (Negative) 07/29/19 01:50 Mod (Negative) 07/29/19 01:50 Pos (Negative) 07/29/19 01:50 Neg (Negative) 07/29/19 01:50 2.0 mg/dL (<2.0) 07/29/19 01:50 Ur Leukocyte Esterase Tr (Negative) 07/29/19 01:50 10.0 /HPF (0.0-6.0) H 07/29/19 01:50 41.0 /HPF (0.0-6.0) 07/29/19 01:50 U Epithel Cells (Auto) 1.0 /HPF (0-13.0) 07/29/19 01:50 2+ /HPF (Negative) 07/29/19 01:50 Few /HPF 07/29/19 01:50 Clear 07/30/19 12:00 Colorless 07/30/19 12:00 3 /mm3 (1-10) 07/30/19 12:00 75 /mm3 (0-0) 07/30/19 12:00 CSF Seg Neutrophils 5.6 % (0-6) 07/30/19 12:00 88.9 % (40-80) 07/30/19 12:00 CSF Reactive Lymphs 0 % 07/30/19 12:00 5.6 % (15-45) 07/30/19 12:00 0 % 07/30/19 12:00 0 % 07/30/19 12:00 C 07/30/19 12:00 64 mg/dL 07/30/19 12:00 31 mg/dL 07/30/19 12:00 Nonreactive (Nonreactive) 07/30/19 12:00 Vancomycin Trough 19.6 ug/mL (5.0-20.0) 08/01/19 07:50 Active Medications - Current Medications Current Medications: Generic Name Dose Route Start Last Admin Trade Name Freq PRN Reason Stop Dose Admin Acetaminophen 650 mg 07/29/19 05:29 Tylenol PO Q4H PRN Pain, Mild (1-3), fever 100.5> Acetaminophen/Hydrocodone Bitart 1 each 07/29/19 21:50 08/02/19 10:44 [place] 5/325 PO 1 each Q4H PRN Administration Pain, Moderate (4-6) Lipase/Protease/Amylase 1 each 07/29/19 14:[address] 10,500 Unit FEEDTUBE PRN PRN For Clogged Feeding Tube Aspirin 325 mg 07/29/19 10:00 08/05/19 09:23 Aspirin PO 325 mg QDAY LESLIE Administration Atorvastatin Calcium 80 mg 07/29/19 22:00 08/05/19 22:38 Lipitor PO 80 mg QHS LESLIE Administration Bisacodyl 10 mg 07/29/19 05:29 Dulcolax RI QDAY PRN Constipation Hydralazine HCl 10 mg 08/01/19 05:00 08/05/19 18:46 Apresoline IV 10 mg Q4HR PRN Administration Hypertension Hydroxyurea 500 mg 08/03/19 15:00 08/03/19 16:13 Hydrea PO 500 mg TuThSa@1000 LESLIE Administration Sodium Chloride 1,000 mls @ 125 mls/hr 07/29/19 13:00 07/31/19 05:11 Nacl 0.9% 1000 Ml IV 125 mls/hr DIRECT LESLIE Administration Ceftriaxone Sodium 2 gm in 100 mls @ 200 mls/hr 08/02/19 15:30 08/06/19 03:55 Rocephin/Ns 2 Gm/100 Ml IV 09/10/19 23:59 200 mls/hr Q12H LESLIE Administration Protocol Ampicillin Sodium 2 gm in 100 mls @ 100 mls/hr 08/05/19 10:00 08/06/19 02:50 Ampicillin/Ns 2 Gm/100 Ml IV 09/10/19 23:59 100 mls/hr Q4H LESLIE Administration Lisinopril 20 mg 07/29/19 10:00 08/05/19 09:23 Zestril PO 20 mg QDAY LESLIE Administration Lorazepam 1 mg 07/29/19 06:42 Ativan IV Q4H PRN Seizures Magnesium Hydroxide 30 ml 07/29/19 05:29 Milk Of Magnesia PO Q4H PRN Constipation Metoprolol Tartrate 50 mg 07/29/19 10:00 08/05/19 22:36 Lopressor PO 50 mg BID LESLIE Administration Ondansetron HCl 4 mg 07/29/19 05:29 Zofran IV Q6H PRN Nausea And Vomiting Simple Syrup 15 ml 07/29/19 14:30 Simple Syrup FEEDTUBE PRN PRN Hypoglycemia Simple Syrup 30 ml 07/29/19 14:30 Simple Syrup FEEDTUBE PRN PRN Hypoglycemia Sodium Bicarbonate 325 mg 07/29/19 14:30 Sodium Bicarbonate FEEDTUBE PRN PRN For Clogged Feeding Tube Sodium Chloride 10 ml 07/29/19 05:29 08/03/19 21:01 Sodium Chloride Flush Syringe 10 Ml IV 10 ml PRN PRN Administration LINE FLUSH Nutrition/Malnutrition Assess - Dietary Evaluation Nutrition/Malnutrition Findings: Nutrition Notes Start: 07/29/19 14:00 Freq: Status: Active Protocol: Document 08/05/19 13:31 RM (Rec: 08/05/19 13:43 RM [id number]) Nutrition Notes Initial or Follow up Reassessment Current Diagnosis COPD,Sepsis,Hypertension, Hyperlipidemia Other Pertinent Diagnosis Hx CVA X 2, Nonverbal,UTI,Pneu , Acute encephalopathy, Suspicion of seizure Current Diet Mechanical Soft w/chopped meats & Ensure Enlive Labs/Tests Reviewed Pertinent Medications Reviewed Height 5 ft 9 in Weight 82.4 kg [place] Body Weight (kg) 72.72 BMI 26.8 Subjective/Other Information ST previously saw pt and recommended current diet. Per nurse pt has not been eating or drinking d/t coughing when he attempts to eat. Stated that pt was able to take his medicine with a container of applesauce. C 13 Catapult Operator recommended to MD that ST re-evaluate pt. Percent of energy/protein needs met: 0%/0% Burn Absent Trauma Absent Minimum of two criteria No #1 Nutrition Diagnosis Inadequate oral intake Diagnosis Progress(for reassessment Continues documentation) Is patient on ventilator? No Is Patient Ambulatory and/or Out of Bed No REE-([place]-confined to bed) 1994.348 Calculation Used for Recommendations [facility] Additional Notes Protein needs: 124-140g (1.5-1 .7g/kg) Fluid needs: 1 mL/kcal Nutrition Intervention Change Diet Order: Pureed Add Supplement/Snack (indicate name/kcal D/C /protein ) Goal #1 ST to re-evaluate Goal #2 Meet at least 75% of calorie and protein needs via PO intakes Anticipated Discharge Needs: Unable to determine at this time Follow-Up By: 08/07/19 Additional Comments Follow for ST recommendation, PO intakes
--- NOTE | 2019-08-06 09:09 | Progress Note ---
Assessment and Plan Sepsis secondary to endocarditis Acute mitral valve endocarditis Hx of COPD Hypertension Prior CVA Elevation of troponin ECG is sinus tachycardia, no acute ischemic changes. An repeat echocardiogram this admission revealed: 1. Mitral valve vegetation. 2. Moderate MR. 3. Normal LV function EF 55-60%. 4. Mild-moderate AR. Recommend: 6 weeks of appropriate intravenous antibiotic therapy, after which we will repeat the echocardiogram with Doppler. Subjective Date of service: 08/06/19 Principal diagnosis: CMPD Interval history: No interval changes. Objective Vital Signs Temp Pulse Pulse Pulse Pulse Pulse Pulse 08/06/19 07:26 97.9 F 78 08/06/19 04:11 98.2 F 80 08/05/19 23:11 98.5 F 78 08/05/19 22:36 79 08/05/19 22:00 80 70 70 70 70 70 08/05/19 19:57 99.0 F 87 08/05/19 18:46 79 08/05/19 18:44 78 08/05/19 16:35 97.9 F 80 08/05/19 12:43 97.9 F 74 08/05/19 12:00 64 08/05/19 10:00 87 70 70 70 70 70 08/05/19 09:24 70 08/05/19 09:23 70 08/05/19 09:19 70 Resp BP Pulse Ox 08/06/19 07:26 18 162/86 94 08/06/19 04:11 18 163/89 92 08/05/19 23:11 18 182/86 96 08/05/19 22:36 168/92 08/05/19 22:00 21 98 08/05/19 19:57 20 168/92 96 08/05/19 18:46 172/89 08/05/19 18:44 172/89 92 08/05/19 16:35 18 179/101 91 08/05/19 12:43 18 172/95 93 08/05/19 12:00 08/05/19 10:00 21 98 08/05/19 09:24 150/82 08/05/19 09:23 150/82 08/05/19 09:19 150/82 96 - Physical Examination General: No Apparent Distress HEENT: Positive: PERRL Neck: Positive: trachea midline Cardiac: Positive: Reg Rate and Rhythm Lungs: Positive: Decreased Breath Sounds Neuro: Positive: Weakness Abdomen: Positive: Active Bowel Sounds Extremities: Absent: edema - Labs and Meds Cardiac Enzymes 08/05/19 Range/Units 08:40 AST 19 (5-40) units/L CBC 08/06/19 Range/Units 06:00 WBC 5.3 (4.5-11.0) K/mm3 RBC 2.64 L (3.65-5.03) M/mm3 Hgb 9.5 L (11.8-15.2) gm/dl Hct 28.5 L (35.5-45.6) % Plt Count 327 (140-440) K/mm3 Comprehensive Metabolic Panel 08/05/19 Range/Units 08:40 Sodium 143 (137-145) mmol/L Potassium 3.8 (3.6-5.0) mmol/L Chloride 105.1 (98-107) mmol/L Carbon Dioxide 29 (22-30) mmol/L BUN 14 (9-20) mg/dL Creatinine 0.9 (0.8-1.5) mg/dL Glucose 88 (75-100) mg/dL Calcium 8.4 (8.4-10.2) mg/dL AST 19 (5-40) units/L ALT 13 (7-56) units/L Alkaline Phosphatase 64 (35-129) units/L Total Protein 7.8 (6.3-8.2) g/dL Albumin 3.2 L (3.9-5) g/dL
[2019-08-06] MEDS: ZESTRIL PO SCH ×2 (10:17→10:25)
[2019-08-06] MEDS: ASPIRIN PO SCH ×2 (10:17→10:24)
[2019-08-06] MEDS: METOPROLOL PO SCH ×3 (10:17→22:34)
[2019-08-06] MEDS: HYDROXYUREA PO SCH (10:25)
--- NOTE | 2019-08-06 14:43 | Hem/Onc Progress Note ---
Assessment and Plan 1. h/o Unresponsiveness, history of fever. ID team following. 2. JAK2 mutation. The patient was on hydroxyurea, white cell count was low, Hydrea had been held. 3. History of chronic obstructive pulmonary disease. 4. History of hypertension. 5. History of hyperlipidemia. 6. History of cerebrovascular accident. 7. History of left renal cell cancer removal. 8. V/Q scan is negative for pulmonary embolism. 9. Lumbar puncture was ordered by ID. 10. I will follow the patient during inpatient stay. pt awake - but speech slurred follows command of moving legs and opening mouth as per old notes - pt had been with Dr Frankel He was admitted to [facility] in feb 2019 - with CVA 08/06 ID - Infective endocardititis pt was on hydrea for CMPD - this was held as WBC was low restarted hydrea at a lower frequency - Patient Problems (1) Myeloproliferative disease Current Visit: No Status: Acute Subjective Date of service: 08/06/19 Principal diagnosis: ch myelo proliferative disorder Interval history: slurred speech Objective - Exam Narrative Exam: Pain - n/a General appearance - awake - but slurred speech Performance status complete dependence Eyes - no icterus ENT - no bleeding LNs cervical not palpable Neck - no LN Respiratory Normal Breath sounds - CTA anteriorly CVS S1 S2 + Extremities no calf tenderness General GI Soft Rectal deferred male - deferred Skin warm Musculoskeletal moving extremitites Neurologically awake - slurred speech - Constitutional Vitals: Last Vital Signs Temp 98.2 F 08/06/19 11:10 Pulse 70 08/06/19 12:43 Resp 18 08/06/19 12:43 BP 166/75 08/06/19 11:10 Pulse Ox 100 08/06/19 12:43 - Labs Lab Results: Laboratory Results - last 24 hr 08/06/19 06:00 WBC 5.3 RBC 2.64 L Hgb 9.5 L Hct 28.5 L MCV 108 H MCH 36 H MCHC 33 RDW 23.4 H Plt Count 327 Medications & Allergies - Medications Allergies/Adverse Reactions: Allergies No Known Allergies Allergy (Unverified 07/17/14 19:25) Home Medications: Home Medications Medication Instructions Recorded Confirmed Last Taken Type Metoprolol Tartrate 50 mg PO BID 03/05/19 07/29/19 07/28/19 History QUEtiapine 50 mg PO DAILY 03/05/19 07/29/19 Unknown History Aspirin 325 mg PO QDAY tablet 03/11/19 07/29/19 07/29/19 17:39 Rx AtorvaSTATin [Lipitor] 80 mg PO QHS tablet 03/11/19 07/29/19 Unknown Rx Lisinopril [Zestril TAB] 20 mg PO QDAY tablet 03/11/19 07/29/19 Unknown Rx traZODone [Desyrel] 50 mg PO QDAY PRN tablet 03/11/19 07/29/19 Unknown Rx Hydroxyurea [Hydrea] 500 mg PO TuThSa@1000 #30 capsule 08/05/19 Unknown Rx Active Medications: Generic Name Dose Route Start Last Admin Trade Name Freq PRN Reason Stop Dose Admin Acetaminophen 650 mg 07/29/19 05:29 Tylenol PO Q4H PRN Pain, Mild (1-3), fever 100.5> Acetaminophen/Hydrocodone Bitart 1 each 07/29/19 21:50 08/02/19 10:44 [place] 5/325 PO 1 each Q4H PRN Administration Pain, Moderate (4-6) Lipase/Protease/Amylase 1 each 07/29/19 14:30 Pancrejulita [place] 10,500 Unit FEEDTUBE PRN PRN For Clogged Feeding Tube Aspirin 325 mg 07/29/19 10:00 08/06/19 10:24 Aspirin PO Not Given QDAY LESLIE Atorvastatin Calcium 80 mg 07/29/19 22:00 08/05/19 22:38 Lipitor PO 80 mg QHS LESLIE Administration Bisacodyl 10 mg 07/29/19 05:29 Dulcolax NC QDAY PRN Constipation Hydralazine HCl 10 mg 08/01/19 05:00 08/05/19 18:46 Apresoline IV 10 mg Q4HR PRN Administration Hypertension Hydroxyurea 500 mg 08/03/19 15:00 08/06/19 10:25 Hydrea PO Not Given TuThSa@1000 LESLIE Sodium Chloride 1,000 mls @ 125 mls/hr 07/29/19 13:00 07/31/19 05:11 Nacl 0.9% 1000 Ml IV 125 mls/hr DIRECT LESLIE Administration Ceftriaxone Sodium 2 gm in 100 mls @ 200 mls/hr 08/02/19 15:30 08/06/19 03:55 Rocephin/Ns 2 Gm/100 Ml IV 09/10/19 23:59 200 mls/hr Q12H LESLIE Administration Protocol Ampicillin Sodium 2 gm in 100 mls @ 100 mls/hr 08/05/19 10:00 08/06/19 10:16 Ampicillin/Ns 2 Gm/100 Ml IV 09/10/19 23:59 100 mls/hr Q4H LESLIE Administration Lisinopril 20 mg 07/29/19 10:00 08/06/19 10:25 Zestril PO Not Given QDAY LESLIE Lorazepam 1 mg 07/29/19 06:42 Ativan IV Q4H PRN Seizures Magnesium Hydroxide 30 ml 07/29/19 05:29 Milk Of Magnesia PO Q4H PRN Constipation Metoprolol Tartrate 50 mg 07/29/19 10:00 08/06/19 10:25 Lopressor PO Not Given BID LESLIE Ondansetron HCl 4 mg 07/29/19 05:29 Zofran IV Q6H PRN Nausea And Vomiting Simple Syrup 15 ml 07/29/19 14:30 Simple Syrup FEEDTUBE PRN PRN Hypoglycemia Simple Syrup 30 ml 07/29/19 14:30 Simple Syrup FEEDTUBE PRN PRN Hypoglycemia Sodium Bicarbonate 325 mg 07/29/19 14:30 Sodium Bicarbonate FEEDTUBE PRN PRN For Clogged Feeding Tube Sodium Chloride 10 ml 07/29/19 05:29 08/03/19 21:01 Sodium Chloride Flush Syringe 10 Ml IV 10 ml PRN PRN Administration LINE FLUSH
[2019-08-06] MEDS: APRESOLINE IV PRN (18:23)
[2019-08-07] MEDS: AMPICILLIN/NS 2 GM/100 ML 2 GM/100 ML BAG IV SCH ×6 (02:19→22:07)
[2019-08-07] MEDS: ROCEPHIN/NS 2 GM/100 ML 2 GM/100 ML BAG IV SCH ×2 (03:30→17:49)
--- NOTE | 2019-08-07 07:09 | Hem/Onc Progress Note ---
Assessment and Plan 1. h/o Unresponsiveness, history of fever. ID team following. 2. JAK2 mutation. The patient was on hydroxyurea, white cell count was low, Hydrea had been held. 3. History of chronic obstructive pulmonary disease. 4. History of hypertension. 5. History of hyperlipidemia. 6. History of cerebrovascular accident. 7. History of left renal cell cancer removal. 8. V/Q scan is negative for pulmonary embolism. 9. Lumbar puncture was ordered by ID. 10. I will follow the patient during inpatient stay. pt awake - but speech slurred follows command of moving legs and opening mouth as per old notes - pt had been with Dr Frankel He was admitted to [facility] in feb 2019 - with CVA 08/07 ID - Infective endocardititis pt was on hydrea for CMPD - this was held as WBC was low restarted hydrea at a lower frequency - Patient Problems (1) Myeloproliferative disease Current Visit: No Status: Acute Subjective Date of service: 08/07/19 Principal diagnosis: JAK2 - CMPD Interval history: slurred speech Objective - Exam Narrative Exam: Pain - n/a General appearance - awake - but slurred speech Performance status complete dependence Eyes - no icterus ENT - no bleeding LNs cervical not palpable Neck - no LN Respiratory Normal Breath sounds - CTA anteriorly CVS S1 S2 + Extremities no calf tenderness General GI Soft Rectal deferred male - deferred Skin warm Musculoskeletal moving extremitites Neurologically awake - slurred speech - Constitutional Vitals: Last Vital Signs Temp 98.0 F 08/07/19 03:40 Pulse 69 08/07/19 03:40 Resp 18 08/07/19 03:40 BP 120/77 08/07/19 03:40 Pulse Ox 99 08/07/19 03:40 - Labs Lab Results: Laboratory Results - last 24 hr 08/06/19 06:00 WBC 5.3 RBC 2.64 L Hgb 9.5 L Hct 28.5 L MCV 108 H MCH 36 H MCHC 33 RDW 23.4 H Plt Count 327 Medications & Allergies - Medications Allergies/Adverse Reactions: Allergies No Known Allergies Allergy (Unverified 07/17/14 19:25) Home Medications: Home Medications Medication Instructions Recorded Confirmed Last Taken Type Metoprolol Tartrate 50 mg PO BID 03/05/19 07/29/19 07/28/19 History QUEtiapine 50 mg PO DAILY 03/05/19 07/29/19 Unknown History Aspirin 325 mg PO QDAY tablet 03/11/19 07/29/19 07/29/19 17:39 Rx AtorvaSTATin [Lipitor] 80 mg PO QHS tablet 03/11/19 07/29/19 Unknown Rx Lisinopril [Zestril TAB] 20 mg PO QDAY tablet 03/11/19 07/29/19 Unknown Rx traZODone [Desyrel] 50 mg PO QDAY PRN tablet 03/11/19 07/29/19 Unknown Rx Hydroxyurea [Hydrea] 500 mg PO TuThSa@1000 #30 capsule 08/05/19 Unknown Rx Active Medications: Generic Name Dose Route Start Last Admin Trade Name Freq PRN Reason Stop Dose Admin Acetaminophen 650 mg 07/29/19 05:29 Tylenol PO Q4H PRN Pain, Mild (1-3), fever 100.5> Acetaminophen/Hydrocodone Bitart 1 each 07/29/19 21:50 08/02/19 10:44 [place] 5/325 PO 1 each Q4H PRN Administration Pain, Moderate (4-6) Lipase/Protease/Amylase 1 each 07/29/19 14:30 Pancreazcory [place] 10,500 Unit FEEDTUBE PRN PRN For Clogged Feeding Tube Aspirin 325 mg 07/29/19 10:00 08/06/19 10:24 Aspirin PO Not Given QDAY LESLIE Atorvastatin Calcium 80 mg 07/29/19 22:00 08/06/19 22:36 Lipitor PO 80 mg QHS LESLIE Administration Bisacodyl 10 mg 07/29/19 05:29 Dulcolax [place] QDAY PRN Constipation Hydralazine HCl 10 mg 08/01/19 05:00 08/06/19 18:23 Apresoline IV 10 mg Q4HR PRN Administration Hypertension Hydroxyurea 500 mg 08/03/19 15:00 08/06/19 10:25 Hydrea PO Not Given TuThSa@1000 LESLIE Sodium Chloride 1,000 mls @ 125 mls/hr 07/29/19 13:00 07/31/19 05:11 Nacl 0.9% 1000 Ml IV 125 mls/hr DIRECT LESLIE Administration Ceftriaxone Sodium 2 gm in 100 mls @ 200 mls/hr 08/02/19 15:30 08/07/19 03:30 Rocephin/Ns 2 Gm/100 Ml IV 09/10/19 23:59 200 mls/hr Q12H LESLIE Administration Protocol Ampicillin Sodium 2 gm in 100 mls @ 100 mls/hr 08/05/19 10:00 08/07/19 06:19 Ampicillin/Ns 2 Gm/100 Ml IV 09/10/19 23:59 100 mls/hr Q4H LESLIE Administration Lisinopril 20 mg 07/29/19 10:00 08/06/19 10:25 Zestril PO Not Given QDAY LESLIE Lorazepam 1 mg 07/29/19 06:42 Ativan IV Q4H PRN Seizures Magnesium Hydroxide 30 ml 07/29/19 05:29 Milk Of Magnesia PO Q4H PRN Constipation Metoprolol Tartrate 50 mg 07/29/19 10:00 08/06/19 22:34 Lopressor PO 50 mg BID LESLIE Administration Ondansetron HCl 4 mg 07/29/19 05:29 Zofran IV Q6H PRN Nausea And Vomiting Simple Syrup 15 ml 07/29/19 14:30 Simple Syrup FEEDTUBE PRN PRN Hypoglycemia Simple Syrup 30 ml 07/29/19 14:30 Simple Syrup FEEDTUBE PRN PRN Hypoglycemia Sodium Bicarbonate 325 mg 07/29/19 14:30 Sodium Bicarbonate FEEDTUBE PRN PRN For Clogged Feeding Tube Sodium Chloride 10 ml 07/29/19 05:29 08/03/19 21:01 Sodium Chloride Flush Syringe 10 Ml IV 10 ml PRN PRN Administration LINE FLUSH
--- NOTE | 2019-08-07 09:27 | Progress Note ---
<JW BOLES - Last Filed: 08/07/19 09:28> Assessment and Plan Sepsis secondary to endocarditis Acute mitral valve endocarditis Hx of COPD Hypertension Prior CVA Elevation of troponin ECG is sinus tachycardia, no acute ischemic changes. An repeat echocardiogram this admission revealed: 1. Mitral valve vegetation. 2. Moderate MR. 3. Normal LV function EF 55-60%. 4. Mild-moderate AR. Recommend: Continue intravenous antibiotic therapy for acute mitral valve endocarditis, after which we will repeat the echocardiogram with Doppler. Subjective Date of service: 08/07/19 Principal diagnosis: ch myelo proliferative disorder Interval history: Patient is resting in bed comfortably. He has no complaints. Objective Vital Signs Temp Pulse Pulse Pulse Pulse Pulse Pulse 08/07/19 08:13 08/07/19 08:12 62 08/07/19 07:30 98.1 F 76 08/07/19 03:40 98.0 F 69 08/06/19 23:36 98.0 F 82 08/06/19 22:34 78 08/06/19 22:00 82 88 88 88 08/06/19 19:43 98.0 F 89 08/06/19 18:23 08/06/19 17:04 98.0 F 85 08/06/19 12:43 70 70 70 70 70 08/06/19 11:48 78 08/06/19 11:10 98.2 F 67 Resp BP Pulse Ox 08/07/19 08:13 100 08/07/19 08:12 08/07/19 07:30 18 146/78 100 08/07/19 03:40 18 120/77 99 08/06/19 23:36 18 165/93 99 08/06/19 22:34 137/80 08/06/19 22:00 18 98 08/06/19 19:43 18 137/80 99 08/06/19 18:23 164/101 08/06/19 17:04 18 164/101 96 08/06/19 12:43 18 100 08/06/19 11:48 08/06/19 11:10 18 166/75 97 - Physical Examination General: No Apparent Distress HEENT: Positive: PERRL Neck: Positive: trachea midline Cardiac: Positive: Reg Rate and Rhythm Lungs: Positive: Decreased Breath Sounds Neuro: Positive: Weakness Abdomen: Positive: Active Bowel Sounds Extremities: Absent: edema <BANDAR,ANA - Last Filed: 08/07/19 10:57> Assessment and Plan As seen and evaluated the patient and agree with the assessment and plan. Patient presents to the hospital with sepsis secondary to endocarditis, acute mitral valve endocarditis, and hypertension. Echocardiogram done this admission shows presence of a mitral valve vegetation. Continue IV antibiotic therapy for treatment of acute mitral valve endocarditis, which is directed by infectious disease. Objective Vital Signs Temp Pulse Pulse Pulse Pulse Pulse Pulse 08/07/19 08:13 08/07/19 08:12 62 08/07/19 07:30 98.1 F 76 08/07/19 03:40 98.0 F 69 08/06/19 23:36 98.0 F 82 08/06/19 22:34 78 08/06/19 22:00 82 88 88 88 08/06/19 19:43 98.0 F 89 08/06/19 18:23 08/06/19 17:04 98.0 F 85 08/06/19 12:43 70 70 70 70 70 08/06/19 11:48 78 08/06/19 11:10 98.2 F 67 Resp BP Pulse Ox 08/07/19 08:13 100 08/07/19 08:12 08/07/19 07:30 18 146/78 100 08/07/19 03:40 18 120/77 99 08/06/19 23:36 18 165/93 99 08/06/19 22:34 137/80 08/06/19 22:00 18 98 08/06/19 19:43 18 137/80 99 08/06/19 18:23 164/101 08/06/19 17:04 18 164/101 96 08/06/19 12:43 18 100 08/06/19 11:48 08/06/19 11:10 18 166/75 97
[2019-08-07] MEDS: ASPIRIN PO SCH (11:29)
[2019-08-07] MEDS: ZESTRIL PO SCH (11:29)
[2019-08-07] MEDS: METOPROLOL PO SCH ×2 (11:29→22:08)
--- NOTE | 2019-08-07 17:51 | Progress Note ---
Assessment and Plan Assessment and plan: Patient is a 53-year-old -[place] man who is nonverbal with history of COPD, hypertension, thrombocytosis, JAK2 positive, CVA 2 (hemorrhagic 11/2018 and ischemic 02/2019) with right-sided residual deficits, and dyslipidemia who presents to [facility] ED with Altered mental status and difficulty breathing. He is unable to provide history; According to patient's family patient was found to be less responsive with difficulty breathing. EMS was called. Upon EMS' arrival to home he was found to be hypertensive with SBP in 200's, febrile, and tachycardic with audible wheezing. He was given albuterol nebulizer treatment. 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 Other parnell, the CTA of the head appears unremarkable * CTA neck with and without contrast: There is mild calcified plaque involving the proximal left ICA. However, there no CTA evidence of significant stenosis involving cervical carotid or vertebral arteries by NASCET criteria. * CXR: There is mild increase in interstitial markings bilaterally likely representing mild edema. * 07/30/19 MRI brain without contrast Impression: No focal mass, acute hemorrhage, hydrocephalus or acute ischemia * TTE: 1. Mitral valve vegetation. 2. Moderate MR. 3. Normal LV function EF 55- 60%. 4. Mild-moderate AR. Cultures: 07/29/2019 Blood culture: Enterococcus faecalis Urine culture: mixed growth 07/30/2019 Blood culture: no growth at 48 hours Sepsis secondary to Acute mitral valve endocarditis with Enterococcus: TTE showed mitral valve vegetation. Appreciate Cardiology recs, no surgical interv ention. -Picc line placed. discontinued Vancomycin. 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 Discussed with Case Management, orders placed. -LP done, doubt meningitis from preliminary studies, isolation discontinued UTI- Ruled out as source -Urine WBC 10.0 -Urine culture no growth -On IV Abx Pneumonia -CXR shows mild increase in interstitial markings bilaterally -Blood Cultures ENTERROCOCCUS -Continue on IV Abx Acute encephalopathy secondary to Seizure precipitated by sepsis -Likely due to Sepsis or possibly seizure -Evaluated by Dr. Slaughter (tele-neurology) -Neuro Checks -Continue to monitor -Neurology consulted and input noted. Possible seizure rather than CVA also as evidenced by CT head, with no acute cva noted. No further AED since this is secondary to fever Hypertension -Continue to monitor BP -Resume home antihypertensive meds to optimize BP History of CVA -Hemorrhagic CVA 11/2018 -Ischemic CVA 02/2019 -Right-sided residual deficits -PT/OT eval recommending home with home health -Continue aspirin and statin therapy Type 2 mi -Troponin elevated at 0.170 -Will continue to trend -Cardiology input noted Elevated d-dimer -D-dimer elevated at 1354.97 -V/Q scan negative for PE Thrombocytosis JAK2 positive Dysphagia -Tolerating diet, although may need change in consistence due to intermittent cough, Barium study was negative. DVT PPX -SCD's -Will defer anticoagulation to hematology Discharge once IV abx arranged asking for SSN form to be signed to enable them obtain information about the Disability as the patient is not able to speek due to the stroke. Patient is agreeable, and risk management agreed. History Interval history: Patient was seen and examined. Follow-up on current diagnosis of MV Endocarditis. No overnight events reported to me. Imaging, nursing note, chart, labs and old chart reviewed. Hospitalist Physical - Physical exam Narrative exam: Gen: WDWN, NAD, Awake, Alert, Orientated HEENT: NCAT, EOMI, PERRL, OP Clear Neck: supple, no adenopathy, no thyromegaly, no JVD CVS/Heart: RRR, normal S1S2, pulses present bilaterally Chest/Lungs: CTA B, Symmetrical chest expansion, good air entry bilaterally GI/Abdomen: soft, NTND, good bowel sounds, no guarding or rebound /Bladder: no suprapubic tenderness, no CVA or paraspinal tenderness Extermity/Skin: no c/c/e, no obvious rash MSK: FROM x 4 Neuro: CN 2-12 grossly intact, no new focal deficits but with residual deficits, expressive aphasia Psych: calm - Constitutional Vitals: Temp Pulse Resp BP Pulse Ox 98.1 F 62 18 146/78 100 08/07/19 07:30 08/07/19 08:12 08/07/19 07:30 08/07/19 07:30 08/07/19 08:13 General appearance: Present: no acute distress Results - Labs CBC & Chem 7: 08/06/19 06:00 08/05/19 08:40 Labs: Laboratory Last Values WBC 5.3 K/mm3 (4.5-11.0) 08/06/19 06:00 RBC 2.64 M/mm3 (3.65-5.03) L 08/06/19 06:00 Hgb 9.5 gm/dl (11.8-15.2) L 08/06/19 06:00 Hct 28.5 % (35.5-45.6) L 08/06/19 06:00 MCV 108 fl (84-94) H 08/06/19 06:00 MCH 36 pg (28-32) H 08/06/19 06:00 MCHC 33 % (32-34) 08/06/19 06:00 RDW 23.4 % (13.2-15.2) H 08/06/19 06:00 Plt Count 327 K/mm3 (140-440) 08/06/19 06:00 Lymph % (Auto) 35.6 % (13.4-35.0) H 08/05/19 08:40 Saline % (Auto) 8.3 % (0.0-7.3) H 08/05/19 08:40 Eos % (Auto) 2.8 % (0.0-4.3) 08/05/19 08:40 Baso % (Auto) 1.2 % (0.0-1.8) 08/05/19 08:40 Lymph # 1.9 K/mm3 (1.2-5.4) 08/05/19 08:40 Saline # 0.4 K/mm3 (0.0-0.8) 08/05/19 08:40 Eos # 0.2 K/mm3 (0.0-0.4) 08/05/19 08:40 Baso # 0.1 K/mm3 (0.0-0.1) 08/05/19 08:40 Add Manual Diff Complete 07/29/19 00:42 Total Counted 100 07/29/19 00:42 Seg Neutrophils % 52.1 % (40.0-70.0) 08/05/19 08:40 Seg Neuts % (Manual) 82.0 % (40.0-70.0) H 07/29/19 00:42 0 % 07/29/19 00:42 16.0 % (13.4-35.0) 07/29/19 00:42 Reactive Lymphs % (Man) 0 % 07/29/19 00:42 1.0 % (0.0-7.3) 07/29/19 00:42 0 % (0.0-4.3) 07/29/19 00:42 1.0 % (0.0-1.8) 07/29/19 00:42 0 % 07/29/19 00:42 0 % 07/29/19 00:42 0 % 07/29/19 00:42 0 % 07/29/19 00:42 Nucleated RBC % Not Reportable 07/29/19 00:42 Seg Neutrophils # 2.8 K/mm3 (1.8-7.7) 08/05/19 08:40 Seg Neutrophils # Man 1.6 K/mm3 (1.8-7.7) L 07/29/19 00:42 Band Neutrophils # 0.0 K/mm3 07/29/19 00:42 0.3 K/mm3 (1.2-5.4) L 07/29/19 00:42 Abs React Lymphs (Man) 0.0 K/mm3 07/29/19 00:42 0.0 K/mm3 (0.0-0.8) 07/29/19 00:42 0.0 K/mm3 (0.0-0.4) 07/29/19 00:42 0.0 K/mm3 (0.0-0.1) 07/29/19 00:42 0.0 K/mm3 07/29/19 00:42 0.0 K/mm3 07/29/19 00:42 0.0 K/mm3 07/29/19 00:42 Blast Cells # 0.0 K/mm3 07/29/19 00:42 WBC Morphology Not Reportable 07/29/19 00:42 Hypersegmented Neuts Not Reportable 07/29/19 00:42 Hyposegmented Neuts Not Reportable 07/29/19 00:42 Hypogranular Neuts Not Reportable 07/29/19 00:42 Not Reportable 07/29/19 00:42 Not Reportable 07/29/19 00:42 Not Reportable 07/29/19 00:42 Not Reportable 07/29/19 00:42 Not Reportable 07/29/19 00:42 Not Reportable 07/29/19 00:42 Not Reportable 07/29/19 00:42 Not Reportable 07/29/19 00:42 Plt Clumps, EDTA Not Reportable 07/29/19 00:42 Not Reportable 07/29/19 00:42 Not Reportable 07/29/19 00:42 Not Reportable 07/29/19 00:42 Plt Morphology Comment Not Reportable 07/29/19 00:42 RBC Morphology Not Reportable 07/29/19 00:42 Dimorphic RBCs Not Reportable 07/29/19 00:42 Not Reportable 07/29/19 00:42 Not Reportable 07/29/19 00:42 Not Reportable 07/29/19 00:42 2+ 07/29/19 00:42 Not Reportable 07/29/19 00:42 Not Reportable 07/29/19 00:42 Not Reportable 07/29/19 00:42 Not Reportable 07/29/19 00:42 Not Reportable 07/29/19 00:42 Not Reportable 07/29/19 00:42 Not Reportable 07/29/19 00:42 Not Reportable 07/29/19 00:42 Not Reportable 07/29/19 00:42 Not Reportable 07/29/19 00:42 Not Reportable 07/29/19 00:42 Not Reportable 07/29/19 00:42 Not Reportable 07/29/19 00:42 Not Reportable 07/29/19 00:42 Not Reportable 07/29/19 00:42 Acanthocytes (Spur) Not Reportable 07/29/19 00:42 Rouleaux Not Reportable 07/29/19 00:42 Not Reportable 07/29/19 00:42 Not Reportable 07/29/19 00:42 Not Reportable 07/29/19 00:42 Not Reportable 07/29/19 00:42 Hem Pathologist Commnt No 07/29/19 00:42 PT 13.8 Sec. (12.2-14.9) 07/29/19 00:42 INR 1.09 (0.87-1.13) 07/29/19 00:42 APTT 26.5 Sec. (24.2-36.6) 07/29/19 00:42 17.2 Sec. (15.1-19.6) 07/29/19 00:42 1354.97 ng/mlDDU (0-234) H 07/29/19 00:42 Sodium 143 mmol/L (137-145) 08/05/19 08:40 Potassium 3.8 mmol/L (3.6-5.0) 08/05/19 08:40 Chloride 105.1 mmol/L (98-107) 08/05/19 08:40 Carbon Dioxide 29 mmol/L (22-30) 08/05/19 08:40 13 mmol/L 08/05/19 08:40 BUN 14 mg/dL (9-20) 08/05/19 08:40 0.9 mg/dL (0.8-1.5) 08/05/19 08:40 Estimated GFR > 60 ml/min 08/05/19 08:40 16 % 08/05/19 08:40 Glucose 88 mg/dL (75-100) 08/05/19 08:40 POC Glucose 83 (70-105) 08/07/19 07:40 Lactic Acid 1.80 mmol/L (0.7-2.0) 07/29/19 12:58 Calcium 8.4 mg/dL (8.4-10.2) 08/05/19 08:40 Iron 82 ug/dL (49-181) 08/01/19 06:54 TIBC 224 mcg/dL (250-450) L 08/01/19 06:54 1110.0 ng/mL (13.0-400.0) H 08/01/19 06:54 0.40 mg/dL (0.1-1.2) 08/05/19 08:40 AST 19 units/L (5-40) 08/05/19 08:40 ALT 13 units/L (7-56) 08/05/19 08:40 64 units/L (35-129) 08/05/19 08:40 184 units/L (55-170) H 07/29/19 12:58 CK-MB (CK-2) 2.8 ng/mL (0.0-4.0) 07/29/19 12:58 CK-MB (CK-2) Rel Index 1.5 (0-4) 07/29/19 12:58 0.114 ng/mL (0.00-0.029) H* D 07/29/19 10:44 NT-Pro-B Natriuret Pep 1767 pg/mL (0-900) H 07/29/19 02:03 7.8 g/dL (6.3-8.2) 08/05/19 08:40 3.2 g/dL (3.9-5) L 08/05/19 08:40 0.7 % 08/05/19 08:40 Triglycerides TNR 07/29/19 00:42 Cholesterol TNR 07/29/19 00:42 TNR 07/29/19 00:42 TNR 07/29/19 00:42 TNR 07/29/19 00:42 Vitamin B12 1858 pg/mL (211-911) H 08/01/19 06:54 15.28 ng/mL (7.3-26.0) 08/01/19 06:54 Yellow (Yellow) 07/29/19 01:50 Slightly-cloudy (Clear) 07/29/19 01:50 5.0 (5.0-7.0) 07/29/19 01:50 Ur Specific [place] 1.017 (1.003-1.030) 07/29/19 01:50 100 mg/dl mg/dL (Negative) 07/29/19 01:50 Neg mg/dL (Negative) 07/29/19 01:50 Neg mg/dL (Negative) 07/29/19 01:50 Mod (Negative) 07/29/19 01:50 Pos (Negative) 07/29/19 01:50 Neg (Negative) 07/29/19 01:50 2.0 mg/dL (<2.0) 07/29/19 01:50 Ur Leukocyte Esterase Tr (Negative) 07/29/19 01:50 10.0 /HPF (0.0-6.0) H 07/29/19 01:50 41.0 /HPF (0.0-6.0) 07/29/19 01:50 U Epithel Cells (Auto) 1.0 /HPF (0-13.0) 07/29/19 01:50 2+ /HPF (Negative) 07/29/19 01:50 Few /HPF 07/29/19 01:50 Clear 07/30/19 12:00 Colorless 07/30/19 12:00 3 /mm3 (1-10) 07/30/19 12:00 75 /mm3 (0-0) 07/30/19 12:00 CSF Seg Neutrophils 5.6 % (0-6) 07/30/19 12:00 88.9 % (40-80) 07/30/19 12:00 CSF Reactive Lymphs 0 % 07/30/19 12:00 5.6 % (15-45) 07/30/19 12:00 0 % 07/30/19 12:00 0 % 07/30/19 12:00 C 07/30/19 12:00 64 mg/dL 07/30/19 12:00 31 mg/dL 07/30/19 12:00 Nonreactive (Nonreactive) 07/30/19 12:00 Vancomycin Trough 19.6 ug/mL (5.0-20.0) 08/01/19 07:50 Active Medications - Current Medications Current Medications: Generic Name Dose Route Start Last Admin Trade Name Freq PRN Reason Stop Dose Admin Acetaminophen 650 mg 07/29/19 05:29 Tylenol PO Q4H PRN Pain, Mild (1-3), fever 100.5> Acetaminophen/Hydrocodone Bitart 1 each 07/29/19 21:50 08/02/19 10:44 [place] 5/325 PO 1 each Q4H PRN Administration Pain, Moderate (4-6) Lipase/Protease/Amylase 1 each 07/29/19 14:[address] 10,500 Unit FEEDTUBE PRN PRN For Clogged Feeding Tube Aspirin 325 mg 07/29/19 10:00 08/07/19 11:29 Aspirin PO 325 mg QDAY LESLIE Administration Atorvastatin Calcium 80 mg 07/29/19 22:00 08/06/19 22:36 Lipitor PO 80 mg QHS LESLIE Administration Bisacodyl 10 mg 07/29/19 05:29 Dulcolax [place] QDAY PRN Constipation Hydralazine HCl 10 mg 08/01/19 05:00 08/06/19 18:23 Apresoline IV 10 mg Q4HR PRN Administration Hypertension Hydroxyurea 500 mg 08/03/19 15:00 08/06/19 10:25 Hydrea PO Not Given TuThSa@1000 LESLIE Sodium Chloride 1,000 mls @ 125 mls/hr 07/29/19 13:00 07/31/19 05:11 Nacl 0.9% 1000 Ml IV 125 mls/hr DIRECT LESLIE Administration Ceftriaxone Sodium 2 gm in 100 mls @ 200 mls/hr 08/02/19 15:30 08/07/19 03:30 Rocephin/Ns 2 Gm/100 Ml IV 09/10/19 23:59 200 mls/hr Q12H LESLIE Administration Protocol Ampicillin Sodium 2 gm in 100 mls @ 100 mls/hr 08/05/19 10:00 08/07/19 15:42 Ampicillin/Ns 2 Gm/100 Ml IV 09/10/19 23:59 100 mls/hr Q4H LESLIE Administration Lisinopril 20 mg 07/29/19 10:00 08/07/19 11:29 Zestril PO 20 mg QDAY LESLIE Administration Lorazepam 1 mg 07/29/19 06:42 Ativan IV Q4H PRN Seizures Magnesium Hydroxide 30 ml 07/29/19 05:29 Milk Of Magnesia PO Q4H PRN Constipation Metoprolol Tartrate 50 mg 07/29/19 10:00 08/07/19 11:29 Lopressor PO 50 mg BID LESLIE Administration Ondansetron HCl 4 mg 07/29/19 05:29 Zofran IV Q6H PRN Nausea And Vomiting Simple Syrup 15 ml 07/29/19 14:30 Simple Syrup FEEDTUBE PRN PRN Hypoglycemia Simple Syrup 30 ml 07/29/19 14:30 Simple Syrup FEEDTUBE PRN PRN Hypoglycemia Sodium Bicarbonate 325 mg 07/29/19 14:30 Sodium Bicarbonate FEEDTUBE PRN PRN For Clogged Feeding Tube Sodium Chloride 10 ml 07/29/19 05:29 08/03/19 21:01 Sodium Chloride Flush Syringe 10 Ml IV 10 ml PRN PRN Administration LINE FLUSH Nutrition/Malnutrition Assess - Dietary Evaluation Nutrition/Malnutrition Findings: Nutrition Notes Start: 07/29/19 14:00 Freq: Status: Active Protocol: Document 08/07/19 10:17 MK (Rec: 08/07/19 10:38 [facility] [place]-[id number]) Co-Sign 08/07/19 10:17 LP Nutrition Notes Initial or Follow up Reassessment Current Diagnosis COPD,Sepsis,Hypertension, Hyperlipidemia Other Pertinent Diagnosis Hx CVA X 2, Nonverbal,UTI,Pneu , Acute encephalopathy, Suspicion of seizure Current Diet Pureed with thins. Labs/Tests Reviewed Pertinent Medications Reviewed Height 5 ft 9 in Weight 82.5 kg [place] Body Weight (kg) 72.72 BMI 26.9 Subjective/Other Information Pt had >50% of breakfast and reports no issues while eating . Reports a decent appitite but doesn't enjoy food. Percent of energy/protein needs met: 55%/53% Burn Absent Trauma Absent Minimum of two criteria No #1 Nutrition Diagnosis Inadequate oral intake As Evidenced by Signs and Symptoms Less than 50% of breakfast consumed Diagnosis Progress(for reassessment Continues documentation) Is patient on ventilator? No Is Patient Ambulatory and/or Out of Bed No REE-([facility]-confined to bed) 1995.548 Calculation Used for Recommendations [facility] Additional Notes Protein needs: 82-99g (1-1.2g/ kg) Fluid needs: 1 mL/kcal Nutrition Intervention Change Diet Order: Continue current diet Add Supplement/Snack (indicate name/kcal Ensure Clear Apple or Meza /protein ) BID Provides kCal: 480 Provides Protein (gm) 16 Goal #1 Meet atleast 75% of kcal/PRO needs via PO and ONS Anticipated Discharge Needs: Pureed diet with chopped meats Follow-Up By: 08/09/19 Additional Comments FU for PO and ONS intake
[2019-08-07] MEDS: SODIUM CHLORIDE FLUSH SYRINGE 10 ML IV PRN (22:42)
[2019-08-08] MEDS: SODIUM CHLORIDE FLUSH SYRINGE 10 ML IV PRN ×2 (01:02→21:51)
[2019-08-08] MEDS: AMPICILLIN/NS 2 GM/100 ML 2 GM/100 ML BAG IV SCH ×6 (01:02→21:51)
[2019-08-08] MEDS: ROCEPHIN/NS 2 GM/100 ML 2 GM/100 ML BAG IV SCH ×2 (03:59→17:13)
--- NOTE | 2019-08-08 06:52 | Progress Note ---
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 He is unable to provide history; According to patient's family patient was found to be less responsive with difficulty breathing. EMS was called. Upon EMS' arrival to home he was found to be hypertensive with SBP in 200's, febrile, and tachycardic with audible wheezing. He was given albuterol nebulizer treatment. 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 Oth erwise, the CTA of the head appears unremarkable * CTA neck with and without contrast: There is mild calcified plaque involving the proximal left ICA. However, there no CTA evidence of significant stenosis involving cervical carotid or vertebral arteries by NASCET criteria. * CXR: There is mild increase in interstitial markings bilaterally likely representing mild edema. * 07/30/19 MRI brain without contrast Impression: No focal mass, acute hemorrhage, hydrocephalus or acute ischemia * TTE: 1. Mitral valve vegetation. 2. Moderate MR. 3. Normal LV function EF 55- 60%. 4. Mild-moderate AR. Cultures: 07/29/2019 Blood culture: Enterococcus faecalis Urine culture: mixed growth 07/30/2019 Blood culture: no growth at 48 hours Sepsis secondary to Acute mitral valve endocarditis with Enterococcus: TTE showed mitral valve vegetation. Appreciate Cardiology recs, no surgical inter vention. -Picc line placed. discontinued Vancomycin. 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 Discussed with Case Management, orders placed. -LP done, doubt meningitis from preliminary studies, isolation discontinued UTI- Ruled out as source -Urine WBC 10.0 -Urine culture no growth -On IV Abx Pneumonia -CXR shows mild increase in interstitial markings bilaterally -Blood Cultures ENTERROCOCCUS -per ID Acute encephalopathy secondary to Seizure precipitated by sepsis -Likely due to Sepsis or possibly seizure -Evaluated by Dr. Slaughter (tele-neurology) -Neuro Checks -Continue to monitor -Neurology consulted and input noted. Possible seizure rather than CVA also as evidenced by CT head, with no acute cva noted. No further AED since this is secondary to fever Hypertension -Continue to monitor BP -Resume home antihypertensive meds to optimize BP History of CVA -Hemorrhagic CVA 11/2018 -Ischemic CVA 02/2019 -Right-sided residual deficits -PT/OT eval recommending home with home health -Continue aspirin and statin therapy Type 2 mi -Troponin elevated at 0.170 -Will continue to trend -Cardiology input noted Elevated d-dimer -D-dimer elevated at 1354.97 -V/Q scan negative for PE Thrombocytosis JAK2 positive Dysphagia -Tolerating diet, although may need change in consistence due to intermittent cough, Barium study was negative. DVT PPX -SCD's -start sq lovenox, d/w Heme/Onc Discharge once IV abx arranged asking for 787 form SSN form to be signed to enable them obtain information about the Disability as the patient is not able to speek due to the stroke. Dr. Fletcher did not want to sign because Patient is agreeable, and risk management agreed. History Interval history: Patient was seen and examined. Follow-up on current diagnosis of MV Endocarditis. No overnight events reported to me. Imaging, nursing note, chart, labs and old chart reviewed. Hospitalist Physical - Physical exam Narrative exam: Gen: WDWN, NAD, Awake, Alert, Orientated x 1 HEENT: NCAT, EOMI, PERRL, OP Clear Neck: supple, no adenopathy, no thyromegaly, no JVD CVS/Heart: RRR, normal S1S2, pulses present bilaterally Chest/Lungs: CTA B, Symmetrical chest expansion, good air entry bilaterally GI/Abdomen: soft, NTND, good bowel sounds, no guarding or rebound /Bladder: no suprapubic tenderness, no CVA or paraspinal tenderness Extermity/Skin: no c/c/e, no obvious rash MSK: FROM x 4 Neuro: CN 2-12 grossly intact, no new focal deficits but with residual deficits, expressive aphasia Psych: calm - Constitutional Vitals: Temp Pulse Resp BP Pulse Ox 98.1 F 64 18 134/63 95 08/08/19 04:01 08/08/19 04:01 08/08/19 04:01 08/08/19 04:01 08/08/19 04:01 General appearance: Present: no acute distress Results - Labs CBC & Chem 7: 08/06/19 06:00 08/05/19 08:40 Labs: Laboratory Last Values WBC 5.3 K/mm3 (4.5-11.0) 08/06/19 06:00 RBC 2.64 M/mm3 (3.65-5.03) L 08/06/19 06:00 Hgb 9.5 gm/dl (11.8-15.2) L 08/06/19 06:00 Hct 28.5 % (35.5-45.6) L 08/06/19 06:00 MCV 108 fl (84-94) H 08/06/19 06:00 MCH 36 pg (28-32) H 08/06/19 06:00 MCHC 33 % (32-34) 08/06/19 06:00 RDW 23.4 % (13.2-15.2) H 08/06/19 06:00 Plt Count 327 K/mm3 (140-440) 08/06/19 06:00 Lymph % (Auto) 35.6 % (13.4-35.0) H 08/05/19 08:40 [place] % (Auto) 8.3 % (0.0-7.3) H 08/05/19 08:40 Eos % (Auto) 2.8 % (0.0-4.3) 08/05/19 08:40 Baso % (Auto) 1.2 % (0.0-1.8) 08/05/19 08:40 Lymph # 1.9 K/mm3 (1.2-5.4) 08/05/19 08:40 [place] # 0.4 K/mm3 (0.0-0.8) 08/05/19 08:40 Eos # 0.2 K/mm3 (0.0-0.4) 08/05/19 08:40 Baso # 0.1 K/mm3 (0.0-0.1) 08/05/19 08:40 Add Manual Diff Complete 07/29/19 00:42 Total Counted 100 07/29/19 00:42 Seg Neutrophils % 52.1 % (40.0-70.0) 08/05/19 08:40 Seg Neuts % (Manual) 82.0 % (40.0-70.0) H 07/29/19 00:42 0 % 07/29/19 00:42 16.0 % (13.4-35.0) 07/29/19 00:42 Reactive Lymphs % (Man) 0 % 07/29/19 00:42 1.0 % (0.0-7.3) 07/29/19 00:42 0 % (0.0-4.3) 07/29/19 00:42 1.0 % (0.0-1.8) 07/29/19 00:42 0 % 07/29/19 00:42 0 % 07/29/19 00:42 0 % 07/29/19 00:42 0 % 07/29/19 00:42 Nucleated RBC % Not Reportable 07/29/19 00:42 Seg Neutrophils # 2.8 K/mm3 (1.8-7.7) 08/05/19 08:40 Seg Neutrophils # Man 1.6 K/mm3 (1.8-7.7) L 07/29/19 00:42 Band Neutrophils # 0.0 K/mm3 07/29/19 00:42 0.3 K/mm3 (1.2-5.4) L 07/29/19 00:42 Abs React Lymphs (Man) 0.0 K/mm3 07/29/19 00:42 0.0 K/mm3 (0.0-0.8) 07/29/19 00:42 0.0 K/mm3 (0.0-0.4) 07/29/19 00:42 0.0 K/mm3 (0.0-0.1) 07/29/19 00:42 0.0 K/mm3 07/29/19 00:42 0.0 K/mm3 07/29/19 00:42 0.0 K/mm3 07/29/19 00:42 Blast Cells # 0.0 K/mm3 07/29/19 00:42 WBC Morphology Not Reportable 07/29/19 00:42 Hypersegmented Neuts Not Reportable 07/29/19 00:42 Hyposegmented Neuts Not Reportable 07/29/19 00:42 Hypogranular Neuts Not Reportable 07/29/19 00:42 Not Reportable 07/29/19 00:42 Not Reportable 07/29/19 00:42 Not Reportable 07/29/19 00:42 Not Reportable 07/29/19 00:42 Not Reportable 07/29/19 00:42 Not Reportable 07/29/19 00:42 Not Reportable 07/29/19 00:42 Not Reportable 07/29/19 00:42 Plt Clumps, EDTA Not Reportable 07/29/19 00:42 Not Reportable 07/29/19 00:42 Not Reportable 07/29/19 00:42 Not Reportable 07/29/19 00:42 Plt Morphology Comment Not Reportable 07/29/19 00:42 RBC Morphology Not Reportable 07/29/19 00:42 Dimorphic RBCs Not Reportable 07/29/19 00:42 Not Reportable 07/29/19 00:42 Not Reportable 07/29/19 00:42 Not Reportable 07/29/19 00:42 2+ 07/29/19 00:42 Not Reportable 07/29/19 00:42 Not Reportable 07/29/19 00:42 Not Reportable 07/29/19 00:42 Not Reportable 07/29/19 00:42 Not Reportable 07/29/19 00:42 Not Reportable 07/29/19 00:42 Not Reportable 07/29/19 00:42 Not Reportable 07/29/19 00:42 Not Reportable 07/29/19 00:42 Not Reportable 07/29/19 00:42 Not Reportable 07/29/19 00:42 Not Reportable 07/29/19 00:42 Not Reportable 07/29/19 00:42 Not Reportable 07/29/19 00:42 Not Reportable 07/29/19 00:42 Acanthocytes (Spur) Not Reportable 07/29/19 00:42 Rouleaux Not Reportable 07/29/19 00:42 Not Reportable 07/29/19 00:42 Not Reportable 07/29/19 00:42 Not Reportable 07/29/19 00:42 Not Reportable 07/29/19 00:42 Hem Pathologist Commnt No 07/29/19 00:42 PT 13.8 Sec. (12.2-14.9) 07/29/19 00:42 INR 1.09 (0.87-1.13) 07/29/19 00:42 APTT 26.5 Sec. (24.2-36.6) 07/29/19 00:42 17.2 Sec. (15.1-19.6) 07/29/19 00:42 1354.97 ng/mlDDU (0-234) H 07/29/19 00:42 Sodium 143 mmol/L (137-145) 08/05/19 08:40 Potassium 3.8 mmol/L (3.6-5.0) 08/05/19 08:40 Chloride 105.1 mmol/L (98-107) 08/05/19 08:40 Carbon Dioxide 29 mmol/L (22-30) 08/05/19 08:40 13 mmol/L 08/05/19 08:40 BUN 14 mg/dL (9-20) 08/05/19 08:40 0.9 mg/dL (0.8-1.5) 08/05/19 08:40 Estimated GFR > 60 ml/min 08/05/19 08:40 16 % 08/05/19 08:40 Glucose 88 mg/dL (75-100) 08/05/19 08:40 POC Glucose 83 (70-105) 08/07/19 07:40 Lactic Acid 1.80 mmol/L (0.7-2.0) 07/29/19 12:58 Calcium 8.4 mg/dL (8.4-10.2) 08/05/19 08:40 Iron 82 ug/dL (49-181) 08/01/19 06:54 TIBC 224 mcg/dL (250-450) L 08/01/19 06:54 1110.0 ng/mL (13.0-400.0) H 08/01/19 06:54 0.40 mg/dL (0.1-1.2) 08/05/19 08:40 AST 19 units/L (5-40) 08/05/19 08:40 ALT 13 units/L (7-56) 08/05/19 08:40 64 units/L (35-129) 08/05/19 08:40 184 units/L (55-170) H 07/29/19 12:58 CK-MB (CK-2) 2.8 ng/mL (0.0-4.0) 07/29/19 12:58 CK-MB (CK-2) Rel Index 1.5 (0-4) 07/29/19 12:58 0.114 ng/mL (0.00-0.029) H* D 07/29/19 10:44 NT-Pro-B Natriuret Pep 1767 pg/mL (0-900) H 07/29/19 02:03 7.8 g/dL (6.3-8.2) 08/05/19 08:40 3.2 g/dL (3.9-5) L 08/05/19 08:40 0.7 % 08/05/19 08:40 Triglycerides TNR 07/29/19 00:42 Cholesterol TNR 07/29/19 00:42 TNR 07/29/19 00:42 TNR 07/29/19 00:42 TNR 07/29/19 00:42 Vitamin B12 1858 pg/mL (211-911) H 08/01/19 06:54 15.28 ng/mL (7.3-26.0) 08/01/19 06:54 Yellow (Yellow) 07/29/19 01:50 Slightly-cloudy (Clear) 07/29/19 01:50 5.0 (5.0-7.0) 07/29/19 01:50 Ur Specific [place] 1.017 (1.003-1.030) 07/29/19 01:50 100 mg/dl mg/dL (Negative) 07/29/19 01:50 Neg mg/dL (Negative) 07/29/19 01:50 Neg mg/dL (Negative) 07/29/19 01:50 Mod (Negative) 07/29/19 01:50 Pos (Negative) 07/29/19 01:50 Neg (Negative) 07/29/19 01:50 2.0 mg/dL (<2.0) 07/29/19 01:50 Ur Leukocyte Esterase Tr (Negative) 07/29/19 01:50 10.0 /HPF (0.0-6.0) H 07/29/19 01:50 41.0 /HPF (0.0-6.0) 07/29/19 01:50 U Epithel Cells (Auto) 1.0 /HPF (0-13.0) 07/29/19 01:50 2+ /HPF (Negative) 07/29/19 01:50 Few /HPF 07/29/19 01:50 Clear 07/30/19 12:00 Colorless 07/30/19 12:00 3 /mm3 (1-10) 07/30/19 12:00 75 /mm3 (0-0) 07/30/19 12:00 CSF Seg Neutrophils 5.6 % (0-6) 07/30/19 12:00 88.9 % (40-80) 07/30/19 12:00 CSF Reactive Lymphs 0 % 07/30/19 12:00 5.6 % (15-45) 07/30/19 12:00 0 % 07/30/19 12:00 0 % 07/30/19 12:00 C 07/30/19 12:00 64 mg/dL 07/30/19 12:00 31 mg/dL 07/30/19 12:00 Nonreactive (Nonreactive) 07/30/19 12:00 Vancomycin Trough 19.6 ug/mL (5.0-20.0) 08/01/19 07:50 Active Medications - Current Medications Current Medications: Generic Name Dose Route Start Last Admin Trade Name Freq PRN Reason Stop Dose Admin Acetaminophen 650 mg 07/29/19 05:29 Tylenol PO Q4H PRN Pain, Mild (1-3), fever 100.5> Acetaminophen/Hydrocodone Bitart 1 each 07/29/19 21:50 08/02/19 10:44 [place] 5/325 PO 1 each Q4H PRN Administration Pain, Moderate (4-6) Lipase/Protease/Amylase 1 each 07/29/19 14:[address] 10,500 Unit FEEDTUBE PRN PRN For Clogged Feeding Tube Aspirin 325 mg 07/29/19 10:00 08/07/19 11:29 Aspirin PO 325 mg QDAY LESLIE Administration Atorvastatin Calcium 80 mg 07/29/19 22:00 08/07/19 22:08 Lipitor PO 80 mg QHS LESLIE Administration Bisacodyl 10 mg 07/29/19 05:29 Dulcolax IN QDAY PRN Constipation Enoxaparin Sodium 40 mg 08/08/19 10:00 Lovenox SUB-Q QDAY@2200 LESLIE Hydralazine HCl 10 mg 08/01/19 05:00 08/06/19 18:23 Apresoline IV 10 mg Q4HR PRN Administration Hypertension Hydroxyurea 500 mg 08/03/19 15:00 08/06/19 10:25 Hydrea PO Not Given TuThSa@1000 LESLIE Sodium Chloride 1,000 mls @ 125 mls/hr 07/29/19 13:00 07/31/19 05:11 Nacl 0.9% 1000 Ml IV 125 mls/hr DIRECT LESLIE Administration Ceftriaxone Sodium 2 gm in 100 mls @ 200 mls/hr 08/02/19 15:30 08/08/19 03:59 Rocephin/Ns 2 Gm/100 Ml IV 09/10/19 23:59 200 mls/hr Q12H LESLIE Administration Protocol Ampicillin Sodium 2 gm in 100 mls @ 100 mls/hr 08/05/19 10:00 08/08/19 05:58 Ampicillin/Ns 2 Gm/100 Ml IV 09/10/19 23:59 100 mls/hr Q4H LESLIE Administration Lisinopril 20 mg 07/29/19 10:00 08/07/19 11:29 Zestril PO 20 mg QDAY LESLIE Administration Lorazepam 1 mg 07/29/19 06:42 Ativan IV Q4H PRN Seizures Magnesium Hydroxide 30 ml 07/29/19 05:29 Milk Of Magnesia PO Q4H PRN Constipation Metoprolol Tartrate 50 mg 07/29/19 10:00 08/07/19 22:08 Lopressor PO 50 mg BID LESLIE Administration Ondansetron HCl 4 mg 07/29/19 05:29 Zofran IV Q6H PRN Nausea And Vomiting Simple Syrup 15 ml 07/29/19 14:30 Simple Syrup FEEDTUBE PRN PRN Hypoglycemia Simple Syrup 30 ml 07/29/19 14:30 Simple Syrup FEEDTUBE PRN PRN Hypoglycemia Sodium Bicarbonate 325 mg 07/29/19 14:30 Sodium Bicarbonate FEEDTUBE PRN PRN For Clogged Feeding Tube Sodium Chloride 10 ml 07/29/19 05:29 08/08/19 01:02 Sodium Chloride Flush Syringe 10 Ml IV 10 ml PRN PRN Administration LINE FLUSH Nutrition/Malnutrition Assess - Dietary Evaluation Nutrition/Malnutrition Findings: Nutrition Notes Start: 07/29/19 14:00 Freq: Status: Active Protocol: Document 08/07/19 10:17 MK (Rec: 08/07/19 10:38 [id number]) Co-Sign 08/07/19 10:17 LP Nutrition Notes Initial or Follow up Reassessment Current Diagnosis COPD,Sepsis,Hypertension, Hyperlipidemia Other Pertinent Diagnosis Hx CVA X 2, Nonverbal,UTI,Pneu , Acute encephalopathy, Suspicion of seizure Current Diet Pureed with thins. Labs/Tests Reviewed Pertinent Medications Reviewed Height 5 ft 9 in Weight 82.5 kg [place] Body Weight (kg) 72.72 BMI 26.9 Subjective/Other Information Pt had >50% of breakfast and reports no issues while eating . Reports a decent appitite but doesn't enjoy food. Percent of energy/protein needs met: 55%/53% Burn Absent Trauma Absent Minimum of two criteria No #1 Nutrition Diagnosis Inadequate oral intake As Evidenced by Signs and Symptoms Less than 50% of breakfast consumed Diagnosis Progress(for reassessment Continues documentation) Is patient on ventilator? No Is Patient Ambulatory and/or Out of Bed No REE-([facility]-confined to bed) [phone] Calculation Used for Recommendations [facility] Additional Notes Protein needs: 82-99g (1-1.2g/ kg) Fluid needs: 1 mL/kcal Nutrition Intervention Change Diet Order: Continue current diet Add Supplement/Snack (indicate name/kcal Ensure Clear Apple or Meza /protein ) BID Provides kCal: 480 Provides Protein (gm) 16 Goal #1 Meet atleast 75% of kcal/PRO needs via PO and ONS Anticipated Discharge Needs: Pureed diet with chopped meats Follow-Up By: 08/09/19 Additional Comments FU for PO and ONS intake
--- NOTE | 2019-08-08 07:25 | Hem/Onc Progress Note ---
Assessment and Plan 1. h/o Unresponsiveness, history of fever. ID team following. 2. JAK2 mutation. The patient was on hydroxyurea, white cell count was low, Hydrea had been held. 3. History of chronic obstructive pulmonary disease. 4. History of hypertension. 5. History of hyperlipidemia. 6. History of cerebrovascular accident. 7. History of left renal cell cancer removal. 8. V/Q scan is negative for pulmonary embolism. 9. Lumbar puncture was ordered by ID. 10. I will follow the patient during inpatient stay. pt awake - but speech slurred follows command of moving legs and opening mouth as per old notes - pt had been with Dr Frankel He was admitted to [facility] in feb 2019 - with CVA 08/08 ID - Infective endocardititis pt was on hydrea for CMPD - this was held as WBC was low restarted hydrea at a lower frequency pt moves legs and arms PEG Placement done - Patient Problems (1) Myeloproliferative disease Current Visit: No Status: Acute Subjective Date of service: 08/08/19 Principal diagnosis: CMPD Interval history: slurred speech Objective - Exam Narrative Exam: Pain - n/a General appearance - awake - but slurred speech Performance status complete dependence Eyes - no icterus ENT - no bleeding LNs cervical not palpable Neck - no LN Respiratory Normal Breath sounds - CTA anteriorly CVS S1 S2 + Extremities no calf tenderness General GI Soft - PEG + Rectal deferred male - deferred Skin warm Musculoskeletal moving extremitites Neurologically awake - slurred speech - Constitutional Vitals: Last Vital Signs Temp 98.1 F 08/08/19 04:01 Pulse 64 08/08/19 04:01 Resp 18 08/08/19 04:01 BP 134/63 08/08/19 04:01 Pulse Ox 95 08/08/19 04:01 - Labs Lab Results: Laboratory Results - last 24 hr 08/07/19 07:40 POC Glucose 83 Medications & Allergies - Medications Allergies/Adverse Reactions: Allergies No Known Allergies Allergy (Unverified 07/17/14 19:25) Home Medications: Home Medications Medication Instructions Recorded Confirmed Last Taken Type Metoprolol Tartrate 50 mg PO BID 03/05/19 07/29/19 07/28/19 History QUEtiapine 50 mg PO DAILY 03/05/19 07/29/19 Unknown History Aspirin 325 mg PO QDAY tablet 03/11/19 07/29/19 07/29/19 17:39 Rx AtorvaSTATin [Lipitor] 80 mg PO QHS tablet 03/11/19 07/29/19 Unknown Rx Lisinopril [Zestril TAB] 20 mg PO QDAY tablet 03/11/19 07/29/19 Unknown Rx traZODone [Desyrel] 50 mg PO QDAY PRN tablet 03/11/19 07/29/19 Unknown Rx Hydroxyurea [Hydrea] 500 mg PO TuThSa@1000 #30 capsule 08/05/19 Unknown Rx Active Medications: Generic Name Dose Route Start Last Admin Trade Name Freq PRN Reason Stop Dose Admin Acetaminophen 650 mg 07/29/19 05:29 Tylenol PO Q4H PRN Pain, Mild (1-3), fever 100.5> Acetaminophen/Hydrocodone Bitart 1 each 07/29/19 21:50 08/02/19 10:44 [place] 5/325 PO 1 each Q4H PRN Administration Pain, Moderate (4-6) Lipase/Protease/Amylase 1 each 07/29/19 14:30 Pancreaze 10,500 Unit FEEDTUBE PRN PRN For Clogged Feeding Tube Aspirin 325 mg 07/29/19 10:00 08/07/19 11:29 Aspirin PO 325 mg QDAY LESLIE Administration Atorvastatin Calcium 80 mg 07/29/19 22:00 08/07/19 22:08 Lipitor PO 80 mg QHS LESLIE Administration Bisacodyl 10 mg 07/29/19 05:29 Dulcolax [place] QDAY PRN Constipation Enoxaparin Sodium 40 mg 08/08/19 10:00 Lovenox SUB-Q QDAY@2200 LESLIE Hydralazine HCl 10 mg 08/01/19 05:00 08/06/19 18:23 Apresoline IV 10 mg Q4HR PRN Administration Hypertension Hydroxyurea 500 mg 08/03/19 15:00 08/06/19 10:25 Hydrea PO Not Given TuThSa@1000 LESLIE Sodium Chloride 1,000 mls @ 125 mls/hr 07/29/19 13:00 07/31/19 05:11 Nacl 0.9% 1000 Ml IV 125 mls/hr DIRECT LESLIE Administration Ceftriaxone Sodium 2 gm in 100 mls @ 200 mls/hr 08/02/19 15:30 08/08/19 03:59 Rocephin/Ns 2 Gm/100 Ml IV 09/10/19 23:59 200 mls/hr Q12H LESLIE Administration Protocol Ampicillin Sodium 2 gm in 100 mls @ 100 mls/hr 08/05/19 10:00 08/08/19 05:58 Ampicillin/Ns 2 Gm/100 Ml IV 09/10/19 23:59 100 mls/hr Q4H LESLIE Administration Lisinopril 20 mg 07/29/19 10:00 08/07/19 11:29 Zestril PO 20 mg QDAY LESLIE Administration Lorazepam 1 mg 07/29/19 06:42 Ativan IV Q4H PRN Seizures Magnesium Hydroxide 30 ml 07/29/19 05:29 Milk Of Magnesia PO Q4H PRN Constipation Metoprolol Tartrate 50 mg 07/29/19 10:00 08/07/19 22:08 Lopressor PO 50 mg BID LESLIE Administration Ondansetron HCl 4 mg 07/29/19 05:29 Zofran IV Q6H PRN Nausea And Vomiting Simple Syrup 15 ml 07/29/19 14:30 Simple Syrup FEEDTUBE PRN PRN Hypoglycemia Simple Syrup 30 ml 07/29/19 14:30 Simple Syrup FEEDTUBE PRN PRN Hypoglycemia Sodium Bicarbonate 325 mg 07/29/19 14:30 Sodium Bicarbonate FEEDTUBE PRN PRN For Clogged Feeding Tube Sodium Chloride 10 ml 07/29/19 05:29 08/08/19 01:02 Sodium Chloride Flush Syringe 10 Ml IV 10 ml PRN PRN Administration LINE FLUSH
--- NOTE | 2019-08-08 08:49 | Progress Note ---
Assessment and Plan Sepsis secondary to endocarditis Acute mitral valve endocarditis Hx of COPD Hypertension Prior CVA Elevation of troponin ECG is sinus tachycardia, no acute ischemic changes. An repeat echocardiogram this admission revealed: 1. Mitral valve vegetation. 2. Moderate MR. 3. Normal LV function EF 55-60%. 4. Mild-moderate AR. Recommend: Continue 6 weeks of intravenous antibiotic therapy for acute mitral valve endocarditis, after which we will repeat the echocardiogram with Doppler. Subjective Date of service: 08/08/19 Principal diagnosis: CMPD Interval history: Patient is resting in bed comfortably. No interval changes. Objective Vital Signs Temp Pulse Resp BP Pulse Ox 08/08/19 08:00 98.2 F 86 18 138/92 96 08/08/19 04:01 98.1 F 64 18 134/63 95 08/07/19 23:27 98.1 F 62 18 135/65 92 08/07/19 22:08 81 139/76 08/07/19 19:15 98.3 F 81 19 139/76 98 08/07/19 19:05 58 L 08/07/19 17:08 97.9 F 65 18 133/67 98 08/07/19 13:15 98.2 F 62 18 144/84 96 - Physical Examination General: No Apparent Distress HEENT: Positive: PERRL Neck: Positive: trachea midline Cardiac: Positive: Reg Rate and Rhythm Lungs: Positive: Decreased Breath Sounds Neuro: Positive: Weakness Abdomen: Positive: Active Bowel Sounds Extremities: Absent: edema
[2019-08-08] MEDS: ASPIRIN PO SCH (09:40)
[2019-08-08] MEDS: ENOXAPARIN SUB-Q SCH ×2 (09:40→21:54)
[2019-08-08] MEDS: METOPROLOL PO SCH ×2 (09:41→21:52)
[2019-08-08] MEDS: ZESTRIL PO SCH (09:41)
--- NOTE | 2019-08-08 13:46 | Event Note ---
Date: 08/08/19 Patient awaiting placement. On abx for Enterococcus endocarditis involving mitral valve. Recs: Continue IV Ampicillin 2 gm q4 hrs + IV Ceftriaxone 2 gm q12 hrs for E.faecalis endocarditis via PICC line ending 09/10/2019 upon discharge, convert Ampicillin to a continuous infusion (6 gm continuous infusion every 12 hours) CM orders already placed for antibiotics ID clinic follow up every 2 weeks while on abx ID will sign off. Please call with questions.
--- NOTE | 2019-08-08 15:18 | Fluoroscopy Report ---
Modified barium swallow Indication: Dysphagia Technique: Swallowing was evaluated in the lateral position under direct fluoroscopy. Findings: The patient was evaluated with puree, solid, mixed, and thin consistencies. All consistencies were well tolerated. Impression: Unremarkable exam. Fluoroscopic time: 1.5 minutes Number of fluoroscopic images: 1 Signer Name: Chao Mario MD Signed: 08/08/2019 3:14 PM Workstation Name: [id number]
[2019-08-08] MEDS: HYDROXYUREA PO SCH (17:12)
[2019-08-09] MEDS: AMPICILLIN/NS 2 GM/100 ML 2 GM/100 ML BAG IV SCH ×6 (02:13→21:26)
[2019-08-09] MEDS: ROCEPHIN/NS 2 GM/100 ML 2 GM/100 ML BAG IV SCH ×2 (03:19→15:56)
--- NOTE | 2019-08-09 06:35 | Hem/Onc Progress Note ---
Assessment and Plan 1. h/o Unresponsiveness, history of fever. ID team following. 2. JAK2 mutation. The patient was on hydroxyurea, white cell count was low, Hydrea had been held. 3. History of chronic obstructive pulmonary disease. 4. History of hypertension. 5. History of hyperlipidemia. 6. History of cerebrovascular accident. 7. History of left renal cell cancer removal. 8. V/Q scan is negative for pulmonary embolism. 9. Lumbar puncture was ordered by ID. 10. I will follow the patient during inpatient stay. pt awake - but speech slurred follows command of moving legs and opening mouth as per old notes - pt had been with Dr Frankel He was admitted to [facility] in feb 2019 - with CVA 08/09 ID - Infective endocardititis pt was on hydrea for CMPD - this was held as WBC was low restarted hydrea at a lower frequency pt moves legs and arms PEG Placement done ordered labs - Patient Problems (1) Myeloproliferative disease Current Visit: No Status: Acute Subjective Date of service: 08/09/19 Principal diagnosis: CMPD Interval history: pt has a sitter for safety - as he was trying to walk out as per the sitter - pt was given oral food pt has a PEG tube Objective - Exam Narrative Exam: Pain - n/a General appearance - awake - but slurred speech Performance status complete dependence Eyes - no icterus ENT - no bleeding LNs cervical not palpable Neck - no LN Respiratory Normal Breath sounds - CTA anteriorly CVS S1 S2 + Extremities no calf tenderness General GI Soft - PEG + Rectal deferred male - deferred Skin warm Musculoskeletal moving extremitites Neurologically awake - slurred speech - Constitutional Vitals: Last Vital Signs Temp 98.3 F 08/09/19 04:13 Pulse 76 08/09/19 06:00 Resp 20 08/09/19 04:13 BP 130/76 08/09/19 04:13 Pulse Ox 96 08/09/19 04:13 Medications & Allergies - Medications Allergies/Adverse Reactions: Allergies No Known Allergies Allergy (Unverified 07/17/14 19:25) Home Medications: Home Medications Medication Instructions Recorded Confirmed Last Taken Type Metoprolol Tartrate 50 mg PO BID 03/05/19 07/29/19 07/28/19 History QUEtiapine 50 mg PO DAILY 03/05/19 07/29/19 Unknown History Aspirin 325 mg PO QDAY tablet 03/11/19 07/29/19 07/29/19 17:39 Rx AtorvaSTATin [Lipitor] 80 mg PO QHS tablet 03/11/19 07/29/19 Unknown Rx Lisinopril [Zestril TAB] 20 mg PO QDAY tablet 03/11/19 07/29/19 Unknown Rx traZODone [Desyrel] 50 mg PO QDAY PRN tablet 03/11/19 07/29/19 Unknown Rx Hydroxyurea [Hydrea] 500 mg PO TuThSa@1000 #30 capsule 08/05/19 Unknown Rx Active Medications: Generic Name Dose Route Start Last Admin Trade Name Freq PRN Reason Stop Dose Admin Acetaminophen 650 mg 07/29/19 05:29 Tylenol PO Q4H PRN Pain, Mild (1-3), fever 100.5> Acetaminophen/Hydrocodone Bitart 1 each 07/29/19 21:50 08/02/19 10:44 [place] 5/325 PO 1 each Q4H PRN Administration Pain, Moderate (4-6) Lipase/Protease/Amylase 1 each 07/29/19 14:[address] 10,500 Unit FEEDTUBE PRN PRN For Clogged Feeding Tube Aspirin 325 mg 07/29/19 10:00 08/08/19 09:40 Aspirin PO 325 mg QDAY LESLIE Administration Atorvastatin Calcium 80 mg 07/29/19 22:00 08/08/19 21:51 Lipitor PO 80 mg QHS LESLIE Administration Bisacodyl 10 mg 07/29/19 05:29 Dulcolax IN QDAY PRN Constipation Enoxaparin Sodium 40 mg 08/08/19 10:00 08/08/19 21:54 Lovenox SUB-Q 40 mg QDAY@2200 LESLIE Administration Hydralazine HCl 10 mg 08/01/19 05:00 08/06/19 18:23 Apresoline IV 10 mg Q4HR PRN Administration Hypertension Hydroxyurea 500 mg 08/03/19 15:00 08/08/19 17:12 Hydrea PO Not Given TuThSa@1000 LESLIE Sodium Chloride 1,000 mls @ 125 mls/hr 07/29/19 13:00 07/31/19 05:11 Nacl 0.9% 1000 Ml IV 125 mls/hr DIRECT LESLIE Administration Ceftriaxone Sodium 2 gm in 100 mls @ 200 mls/hr 08/02/19 15:30 08/09/19 03:19 Rocephin/Ns 2 Gm/100 Ml IV 09/10/19 23:59 200 mls/hr Q12H LESLIE Administration Protocol Ampicillin Sodium 2 gm in 100 mls @ 100 mls/hr 08/05/19 10:00 08/09/19 05:24 Ampicillin/Ns 2 Gm/100 Ml IV 09/10/19 23:59 100 mls/hr Q4H LESLIE Administration Lisinopril 20 mg 07/29/19 10:00 08/08/19 09:41 Zestril PO 20 mg QDAY LESLIE Administration Lorazepam 1 mg 07/29/19 06:42 Ativan IV Q4H PRN Seizures Magnesium Hydroxide 30 ml 07/29/19 05:29 Milk Of Magnesia PO Q4H PRN Constipation Metoprolol Tartrate 50 mg 07/29/19 10:00 08/08/19 21:52 Lopressor PO 50 mg BID LESLIE Administration Ondansetron HCl 4 mg 07/29/19 05:29 Zofran IV Q6H PRN Nausea And Vomiting Simple Syrup 15 ml 07/29/19 14:30 Simple Syrup FEEDTUBE PRN PRN Hypoglycemia Simple Syrup 30 ml 07/29/19 14:30 Simple Syrup FEEDTUBE PRN PRN Hypoglycemia Sodium Bicarbonate 325 mg 07/29/19 14:30 Sodium Bicarbonate FEEDTUBE PRN PRN For Clogged Feeding Tube Sodium Chloride 10 ml 07/29/19 05:29 08/08/19 21:51 Sodium Chloride Flush Syringe 10 Ml IV 10 ml PRN PRN Administration LINE FLUSH
[2019-08-09] MEDS: ZESTRIL PO SCH (10:02)
[2019-08-09] MEDS: ASPIRIN PO SCH (10:02)
[2019-08-09] MEDS: METOPROLOL PO SCH ×2 (10:02→21:26)
--- NOTE | 2019-08-09 10:22 | Progress Note ---
Assessment and Plan Sepsis secondary to endocarditis Acute mitral valve endocarditis Hx of COPD Hypertension Prior CVA Elevation of troponin ECG is sinus tachycardia, no acute ischemic changes. An repeat echocardiogram this admission revealed: 1. Mitral valve vegetation. 2. Moderate MR. 3. Normal LV function EF 55-60%. 4. Mild-moderate AR. Recommend: Continue 6 weeks of intravenous antibiotic therapy for acute mitral valve endocarditis, after which we will repeat the echocardiogram with Doppler. Subjective Date of service: 08/09/19 Principal diagnosis: CMPD Interval history: Patient is resting in bed comfortably. Remains afebrile. IV antibiotics continues. Objective Vital Signs Temp Pulse Pulse Pulse Pulse Pulse Resp 08/09/19 10:02 64 08/09/19 08:33 92 H 08/09/19 07:51 98.5 F 83 18 08/09/19 06:00 76 08/09/19 04:13 98.3 F 74 20 08/09/19 00:13 98.5 F 62 20 08/09/19 00:00 68 08/08/19 22:00 75 75 75 75 75 18 08/08/19 21:52 65 08/08/19 20:56 98.4 F 65 18 08/08/19 12:23 97.9 F 65 18 BP Pulse Ox 08/09/19 10:02 160/86 08/09/19 08:33 08/09/19 07:51 161/86 96 08/09/19 06:00 08/09/19 04:13 130/76 96 08/09/19 00:13 125/79 97 08/09/19 00:00 08/08/19 22:00 98 08/08/19 21:52 112/65 08/08/19 20:56 112/65 99 08/08/19 12:23 137/69 97 - Physical Examination General: No Apparent Distress HEENT: Positive: PERRL Neck: Positive: trachea midline Cardiac: Positive: Reg Rate and Rhythm Lungs: Positive: Decreased Breath Sounds Neuro: Positive: Weakness Abdomen: Positive: Active Bowel Sounds Extremities: Absent: edema
--- NOTE | 2019-08-09 13:11 | Progress Note ---
Assessment and Plan Assessment and plan: Patient is a 53-year-old -[place] man who is nonverbal with history of COPD, hypertension, dyslipidemia, JAK2 positive with thrombocytosis and CVA 2 (hemorrhagic 11/2018 and ischemic 02/2019) with right-sided residual deficits who presents to [facility] ED with Altered mental status and difficulty breathing. He is unable to provide history; According to patient's family patient was found to be less responsive with difficulty breathing. EMS was called. Upon EMS' arrival to home he was found to be hypertensive with SBP in 200's, febrile, and tachycardic with audible wheezing. He was given albuterol nebulizer treatment. 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 Oth erwise, the CTA of the head appears unremarkable * CTA neck with and without contrast: There is mild calcified plaque involving the proximal left ICA. However, there no CTA evidence of significant stenosis involving cervical carotid or vertebral arteries by NASCET criteria. * CXR: There is mild increase in interstitial markings bilaterally likely representing mild edema. * 07/30/19 MRI brain without contrast Impression: No focal mass, acute hemorrhage, hydrocephalus or acute ischemia * TTE: 1. Mitral valve vegetation. 2. Moderate MR. 3. Normal LV function EF 55- 60%. 4. Mild-moderate AR. Cultures: 07/29/2019 Blood culture: Enterococcus faecalis Urine culture: mixed growth 07/30/2019 Blood culture: no growth at 48 hours Sepsis secondary to Acute mitral valve endocarditis with Enterococcus: TTE showed mitral valve vegetation. Appreciate Cardiology recs, no surgical inter vention. -Picc line placed. discontinued Vancomycin. 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 Discussed with Case Management, orders placed. -LP done, doubt meningitis from preliminary studies, isolation discontinued UTI- Ruled out as source -Urine WBC 10.0 -Urine culture no growth -On IV Abx Pneumonia -CXR shows mild increase in interstitial markings bilaterally -Blood Cultures ENTERROCOCCUS -per ID Acute encephalopathy secondary to Seizure precipitated by sepsis -Likely due to Sepsis or possibly seizure -Evaluated by Dr. Slaughter (tele-neurology) -Neuro Checks -Continue to monitor -Neurology consulted and input noted. Possible seizure rather than CVA also as evidenced by CT head, with no acute cva noted. No further AED since this is secondary to fever Hypertension -Continue to monitor BP -Resume home antihypertensive meds to optimize BP History of CVA -Hemorrhagic CVA 11/2018 -Ischemic CVA 02/2019 -Right-sided residual deficits -PT/OT eval recommending home with home health -Continue aspirin and statin therapy Type 2 mi -Troponin elevated at 0.170 -Will continue to trend -Cardiology input noted Elevated d-dimer -D-dimer elevated at 1354.97 -V/Q scan negative for PE Thrombocytosis JAK2 positive Dysphagia -Tolerating diet, although may need change in consistence due to intermittent cough, Barium study was negative. DVT PPX -SCD's -start sq lovenox, d/w Heme/Onc Discharge once IV abx arranged asking for 787 form SSN form to be signed to enable them obtain information about the Disability as the patient is not able to speek due to the stroke. Dr. Fletcher did not want to sign because unsure if Patient is agreeable due to aphasia, and risk management agreed. History Interval history: Patient was seen and examined. Follow-up on current diagnosis of MV Endocarditis. No overnight events reported to me. Imaging, nursing note, chart, labs and old chart reviewed. Hospitalist Physical - Physical exam Narrative exam: Gen: WDWN, NAD, Awake, Alert, Orientated x 1 HEENT: NCAT, EOMI, PERRL, OP Clear Neck: supple, no adenopathy, no thyromegaly, no JVD CVS/Heart: RRR, normal S1S2, pulses present bilaterally Chest/Lungs: CTA B, Symmetrical chest expansion, good air entry bilaterally GI/Abdomen: soft, NTND, good bowel sounds, no guarding or rebound /Bladder: no suprapubic tenderness, no CVA or paraspinal tenderness Extermity/Skin: no c/c/e, no obvious rash MSK: FROM x 4 Neuro: CN 2-12 grossly intact, no new focal deficits but with residual deficits, expressive aphasia Psych: calm - Constitutional Vitals: Temp Pulse Resp BP Pulse Ox 98.5 F 64 18 160/86 96 08/09/19 07:51 08/09/19 10:02 08/09/19 07:51 08/09/19 10:02 08/09/19 07:51 General appearance: Present: no acute distress Results - Labs CBC & Chem 7: 08/06/19 06:00 08/05/19 08:40 Labs: Laboratory Last Values WBC 5.3 K/mm3 (4.5-11.0) 08/06/19 06:00 RBC 2.64 M/mm3 (3.65-5.03) L 08/06/19 06:00 Hgb 9.5 gm/dl (11.8-15.2) L 08/06/19 06:00 Hct 28.5 % (35.5-45.6) L 08/06/19 06:00 MCV 108 fl (84-94) H 08/06/19 06:00 MCH 36 pg (28-32) H 08/06/19 06:00 MCHC 33 % (32-34) 08/06/19 06:00 RDW 23.4 % (13.2-15.2) H 08/06/19 06:00 Plt Count 327 K/mm3 (140-440) 08/06/19 06:00 Lymph % (Auto) 35.6 % (13.4-35.0) H 08/05/19 08:40 [place] % (Auto) 8.3 % (0.0-7.3) H 08/05/19 08:40 Eos % (Auto) 2.8 % (0.0-4.3) 08/05/19 08:40 Baso % (Auto) 1.2 % (0.0-1.8) 08/05/19 08:40 Lymph # 1.9 K/mm3 (1.2-5.4) 08/05/19 08:40 [place] # 0.4 K/mm3 (0.0-0.8) 08/05/19 08:40 Eos # 0.2 K/mm3 (0.0-0.4) 08/05/19 08:40 Baso # 0.1 K/mm3 (0.0-0.1) 08/05/19 08:40 Add Manual Diff Complete 07/29/19 00:42 Total Counted 100 07/29/19 00:42 Seg Neutrophils % 52.1 % (40.0-70.0) 08/05/19 08:40 Seg Neuts % (Manual) 82.0 % (40.0-70.0) H 07/29/19 00:42 0 % 07/29/19 00:42 16.0 % (13.4-35.0) 07/29/19 00:42 Reactive Lymphs % (Man) 0 % 07/29/19 00:42 1.0 % (0.0-7.3) 07/29/19 00:42 0 % (0.0-4.3) 07/29/19 00:42 1.0 % (0.0-1.8) 07/29/19 00:42 0 % 07/29/19 00:42 0 % 07/29/19 00:42 0 % 07/29/19 00:42 0 % 07/29/19 00:42 Nucleated RBC % Not Reportable 07/29/19 00:42 Seg Neutrophils # 2.8 K/mm3 (1.8-7.7) 08/05/19 08:40 Seg Neutrophils # Man 1.6 K/mm3 (1.8-7.7) L 07/29/19 00:42 Band Neutrophils # 0.0 K/mm3 07/29/19 00:42 0.3 K/mm3 (1.2-5.4) L 07/29/19 00:42 Abs React Lymphs (Man) 0.0 K/mm3 07/29/19 00:42 0.0 K/mm3 (0.0-0.8) 07/29/19 00:42 0.0 K/mm3 (0.0-0.4) 07/29/19 00:42 0.0 K/mm3 (0.0-0.1) 07/29/19 00:42 0.0 K/mm3 07/29/19 00:42 0.0 K/mm3 07/29/19 00:42 0.0 K/mm3 07/29/19 00:42 Blast Cells # 0.0 K/mm3 07/29/19 00:42 WBC Morphology Not Reportable 07/29/19 00:42 Hypersegmented Neuts Not Reportable 07/29/19 00:42 Hyposegmented Neuts Not Reportable 07/29/19 00:42 Hypogranular Neuts Not Reportable 07/29/19 00:42 Not Reportable 07/29/19 00:42 Not Reportable 07/29/19 00:42 Not Reportable 07/29/19 00:42 Not Reportable 07/29/19 00:42 Not Reportable 07/29/19 00:42 Not Reportable 07/29/19 00:42 Not Reportable 07/29/19 00:42 Not Reportable 07/29/19 00:42 Plt Clumps, EDTA Not Reportable 07/29/19 00:42 Not Reportable 07/29/19 00:42 Not Reportable 07/29/19 00:42 Not Reportable 07/29/19 00:42 Plt Morphology Comment Not Reportable 07/29/19 00:42 RBC Morphology Not Reportable 07/29/19 00:42 Dimorphic RBCs Not Reportable 07/29/19 00:42 Not Reportable 07/29/19 00:42 Not Reportable 07/29/19 00:42 Not Reportable 07/29/19 00:42 2+ 07/29/19 00:42 Not Reportable 07/29/19 00:42 Not Reportable 07/29/19 00:42 Not Reportable 07/29/19 00:42 Not Reportable 07/29/19 00:42 Not Reportable 07/29/19 00:42 Not Reportable 07/29/19 00:42 Not Reportable 07/29/19 00:42 Not Reportable 07/29/19 00:42 Not Reportable 07/29/19 00:42 Not Reportable 07/29/19 00:42 Not Reportable 07/29/19 00:42 Not Reportable 07/29/19 00:42 Not Reportable 07/29/19 00:42 Not Reportable 07/29/19 00:42 Not Reportable 07/29/19 00:42 Acanthocytes (Spur) Not Reportable 07/29/19 00:42 Rouleaux Not Reportable 07/29/19 00:42 Not Reportable 07/29/19 00:42 Not Reportable 07/29/19 00:42 Not Reportable 07/29/19 00:42 Not Reportable 07/29/19 00:42 Hem Pathologist Commnt No 07/29/19 00:42 PT 13.8 Sec. (12.2-14.9) 07/29/19 00:42 INR 1.09 (0.87-1.13) 07/29/19 00:42 APTT 26.5 Sec. (24.2-36.6) 07/29/19 00:42 17.2 Sec. (15.1-19.6) 07/29/19 00:42 1354.97 ng/mlDDU (0-234) H 07/29/19 00:42 Sodium 143 mmol/L (137-145) 08/05/19 08:40 Potassium 3.8 mmol/L (3.6-5.0) 08/05/19 08:40 Chloride 105.1 mmol/L (98-107) 08/05/19 08:40 Carbon Dioxide 29 mmol/L (22-30) 08/05/19 08:40 13 mmol/L 08/05/19 08:40 BUN 14 mg/dL (9-20) 08/05/19 08:40 0.9 mg/dL (0.8-1.5) 08/05/19 08:40 Estimated GFR > 60 ml/min 08/05/19 08:40 16 % 08/05/19 08:40 Glucose 88 mg/dL (75-100) 08/05/19 08:40 POC Glucose 83 (70-105) 08/07/19 07:40 Lactic Acid 1.80 mmol/L (0.7-2.0) 07/29/19 12:58 Calcium 8.4 mg/dL (8.4-10.2) 08/05/19 08:40 Iron 82 ug/dL (49-181) 08/01/19 06:54 TIBC 224 mcg/dL (250-450) L 08/01/19 06:54 1110.0 ng/mL (13.0-400.0) H 08/01/19 06:54 0.40 mg/dL (0.1-1.2) 08/05/19 08:40 AST 19 units/L (5-40) 08/05/19 08:40 ALT 13 units/L (7-56) 08/05/19 08:40 64 units/L (35-129) 08/05/19 08:40 184 units/L (55-170) H 07/29/19 12:58 CK-MB (CK-2) 2.8 ng/mL (0.0-4.0) 07/29/19 12:58 CK-MB (CK-2) Rel Index 1.5 (0-4) 07/29/19 12:58 0.114 ng/mL (0.00-0.029) H* D 07/29/19 10:44 NT-Pro-B Natriuret Pep 1767 pg/mL (0-900) H 07/29/19 02:03 7.8 g/dL (6.3-8.2) 08/05/19 08:40 3.2 g/dL (3.9-5) L 08/05/19 08:40 0.7 % 08/05/19 08:40 Triglycerides TNR 07/29/19 00:42 Cholesterol TNR 07/29/19 00:42 TNR 07/29/19 00:42 TNR 07/29/19 00:42 TNR 07/29/19 00:42 Vitamin B12 1858 pg/mL (211-911) H 08/01/19 06:54 15.28 ng/mL (7.3-26.0) 08/01/19 06:54 Yellow (Yellow) 07/29/19 01:50 Slightly-cloudy (Clear) 07/29/19 01:50 5.0 (5.0-7.0) 07/29/19 01:50 Ur Specific [place] 1.017 (1.003-1.030) 07/29/19 01:50 100 mg/dl mg/dL (Negative) 07/29/19 01:50 Neg mg/dL (Negative) 07/29/19 01:50 Neg mg/dL (Negative) 07/29/19 01:50 Mod (Negative) 07/29/19 01:50 Pos (Negative) 07/29/19 01:50 Neg (Negative) 07/29/19 01:50 2.0 mg/dL (<2.0) 07/29/19 01:50 Ur Leukocyte Esterase Tr (Negative) 07/29/19 01:50 10.0 /HPF (0.0-6.0) H 07/29/19 01:50 41.0 /HPF (0.0-6.0) 07/29/19 01:50 U Epithel Cells (Auto) 1.0 /HPF (0-13.0) 07/29/19 01:50 2+ /HPF (Negative) 07/29/19 01:50 Few /HPF 07/29/19 01:50 Clear 07/30/19 12:00 Colorless 07/30/19 12:00 3 /mm3 (1-10) 07/30/19 12:00 75 /mm3 (0-0) 07/30/19 12:00 CSF Seg Neutrophils 5.6 % (0-6) 07/30/19 12:00 88.9 % (40-80) 07/30/19 12:00 CSF Reactive Lymphs 0 % 07/30/19 12:00 5.6 % (15-45) 07/30/19 12:00 0 % 07/30/19 12:00 0 % 07/30/19 12:00 C 07/30/19 12:00 64 mg/dL 07/30/19 12:00 31 mg/dL 07/30/19 12:00 Nonreactive (Nonreactive) 07/30/19 12:00 Vancomycin Trough 19.6 ug/mL (5.0-20.0) 08/01/19 07:50 Active Medications - Current Medications Current Medications: Generic Name Dose Route Start Last Admin Trade Name Freq PRN Reason Stop Dose Admin Acetaminophen 650 mg 07/29/19 05:29 Tylenol PO Q4H PRN Pain, Mild (1-3), fever 100.5> Acetaminophen/Hydrocodone Bitart 1 each 07/29/19 21:50 08/02/19 10:44 [place] 5/325 PO 1 each Q4H PRN Administration Pain, Moderate (4-6) Lipase/Protease/Amylase 1 each 07/29/19 14:[address] 10,500 Unit FEEDTUBE PRN PRN For Clogged Feeding Tube Aspirin 325 mg 07/29/19 10:00 08/09/19 10:02 Aspirin PO 325 mg QDAY LESLIE Administration Atorvastatin Calcium 80 mg 07/29/19 22:00 08/08/19 21:51 Lipitor PO 80 mg QHS LESLIE Administration Bisacodyl 10 mg 07/29/19 05:29 Dulcolax [place] QDAY PRN Constipation Enoxaparin Sodium 40 mg 08/08/19 10:00 08/08/19 21:54 Lovenox SUB-Q 40 mg QDAY@2200 LESLIE Administration Hydralazine HCl 10 mg 08/01/19 05:00 08/06/19 18:23 Apresoline IV 10 mg Q4HR PRN Administration Hypertension Hydroxyurea 500 mg 08/03/19 15:00 08/08/19 17:12 Hydrea PO Not Given TuThSa@1000 LESLIE Sodium Chloride 1,000 mls @ 125 mls/hr 07/29/19 13:00 07/31/19 05:11 Nacl 0.9% 1000 Ml IV 125 mls/hr DIRECT LESLIE Administration Ceftriaxone Sodium 2 gm in 100 mls @ 200 mls/hr 08/02/19 15:30 08/09/19 03:19 Rocephin/Ns 2 Gm/100 Ml IV 09/10/19 23:59 200 mls/hr Q12H LESLIE Administration Protocol Ampicillin Sodium 2 gm in 100 mls @ 100 mls/hr 08/05/19 10:00 08/09/19 10:00 Ampicillin/Ns 2 Gm/100 Ml IV 09/10/19 23:59 100 mls/hr Q4H LESLIE Administration Lisinopril 20 mg 07/29/19 10:00 08/09/19 10:02 Zestril PO 20 mg QDAY LESLIE Administration Lorazepam 1 mg 07/29/19 06:42 Ativan IV Q4H PRN Seizures Magnesium Hydroxide 30 ml 07/29/19 05:29 Milk Of Magnesia PO Q4H PRN Constipation Metoprolol Tartrate 50 mg 07/29/19 10:00 08/09/19 10:02 Lopressor PO 50 mg BID LESLIE Administration Ondansetron HCl 4 mg 07/29/19 05:29 Zofran IV Q6H PRN Nausea And Vomiting Simple Syrup 15 ml 07/29/19 14:30 Simple Syrup FEEDTUBE PRN PRN Hypoglycemia Simple Syrup 30 ml 07/29/19 14:30 Simple Syrup FEEDTUBE PRN PRN Hypoglycemia Sodium Bicarbonate 325 mg 07/29/19 14:30 Sodium Bicarbonate FEEDTUBE PRN PRN For Clogged Feeding Tube Sodium Chloride 10 ml 07/29/19 05:29 08/08/19 21:51 Sodium Chloride Flush Syringe 10 Ml IV 10 ml PRN PRN Administration LINE FLUSH Nutrition/Malnutrition Assess - Dietary Evaluation Nutrition/Malnutrition Findings: Nutrition Notes Start: 07/29/19 14:00 Freq: Status: Active Protocol: Document 08/09/19 11:24 KS (Rec: 08/09/19 12:24 KS [id number]) Co-Sign 08/09/19 11:24 LM Nutrition Notes Initial or Follow up Reassessment Current Diagnosis COPD,Sepsis,Hypertension, Hyperlipidemia Other Pertinent Diagnosis Hx CVA X 2, Nonverbal,UTI,Pneu , Acute encephalopathy, Suspicion of seizure Current Diet Pureed Diet Labs/Tests Reviewed Pertinent Medications Reviewed Height 5 ft 9 in Weight 80.9 kg [place] Body Weight (kg) 72.72 BMI 26.3 Weight change and time frame Wt loss noted. Subjective/Other Information Pt reports eating 75% of meals . Pt also eating food from outside hospital. Pt reports drinking Ensure Clear BID. Pt reports good appetite and no N /V. Pt reports no difficulty with chewing or swallowing on pureed diet. 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 Percent of energy/protein needs met: 100%/100% Burn Absent Trauma Absent Minimum of two criteria No #1 Nutrition Diagnosis Inadequate oral intake As Evidenced by Signs and Symptoms Pt eating >75% of meals. Pt drinking Ensure Clear BID. Pt eating additional food from outside hospital. Diagnosis Progress(for reassessment Improved documentation) Is patient on ventilator? No Is Patient Ambulatory and/or Out of Bed No REE-([facility]-confined to bed) [phone] Calculation Used for Recommendations [facility] Additional Notes PRO: 81-97g (1-1.2g/kg/day) Fluid: 1mL/kcal Nutrition Intervention Change Diet Order: Change to Cardiac Diet Goal #1 Continue to meet at least 75% of energy/PRO needs via PO intakes. Anticipated Discharge Needs: Cardiac Diet Follow-Up By: 08/14/19 Additional Comments FU for PO intakes
[2019-08-09] MEDS: ENOXAPARIN SUB-Q SCH (21:26)
[2019-08-10] MEDS: AMPICILLIN/NS 2 GM/100 ML 2 GM/100 ML BAG IV SCH ×6 (01:11→21:39)
[2019-08-10] MEDS: APRESOLINE IV PRN ×2 (02:01→21:27)
[2019-08-10] MEDS: ROCEPHIN/NS 2 GM/100 ML 2 GM/100 ML BAG IV SCH ×2 (02:30→16:20)
[2019-08-10] MEDS: ATIVAN IV PRN ×2 (02:38→21:25)
[2019-08-10] MEDS: PROVENTIL IH PRN (03:15)
[2019-08-10] MEDS: ZESTRIL PO SCH (10:32)
[2019-08-10] MEDS: METOPROLOL PO SCH ×2 (10:33→21:27)
[2019-08-10] MEDS: ASPIRIN PO SCH (10:33)
[2019-08-10] MEDS: HYDROXYUREA PO SCH (10:41)
--- NOTE | 2019-08-10 12:00 | Hem/Onc Progress Note ---
Assessment and Plan 1. h/o Unresponsiveness, history of fever. ID team following. 2. JAK2 mutation. The patient was on hydroxyurea, white cell count was low, Hydrea had been held. 3. History of chronic obstructive pulmonary disease. 4. History of hypertension. 5. History of hyperlipidemia. 6. History of cerebrovascular accident. 7. History of left renal cell cancer removal. 8. V/Q scan is negative for pulmonary embolism. 9. Lumbar puncture was ordered by ID. 10. I will follow the patient during inpatient stay. pt awake - but speech slurred follows command of moving legs and opening mouth as per old notes - pt had been with Dr Frankel He was admitted to [facility] in feb 2019 - with CVA 08/10 ID - Infective endocardititis pt was on hydrea for CMPD - this was held as WBC was low restarted hydrea at a lower frequency pt moves legs and arms PEG Present - but as per RN - he is eating ordered labs - Patient Problems (1) Myeloproliferative disease Current Visit: No Status: Acute Subjective Date of service: 08/10/19 Principal diagnosis: CMPD Interval history: getting therapy Objective - Exam Narrative Exam: Pain - n/a General appearance - awake - but slurred speech Performance status complete dependence Eyes - no icterus ENT - no bleeding LNs cervical not palpable Neck - no LN Respiratory Normal Breath sounds - CTA anteriorly CVS S1 S2 + Extremities no calf tenderness General GI Soft - PEG + Rectal deferred male - deferred Skin warm Musculoskeletal moving extremitites Neurologically awake - slurred speech - Constitutional Vitals: Last Vital Signs Temp 97.6 F 08/10/19 08:00 Pulse 76 08/10/19 10:33 Resp 16 08/10/19 08:00 BP 131/87 08/10/19 10:33 Pulse Ox 100 08/10/19 08:06 Medications & Allergies - Medications Allergies/Adverse Reactions: Allergies No Known Allergies Allergy (Unverified 07/17/14 19:25) Home Medications: Home Medications Medication Instructions Recorded Confirmed Last Taken Type Metoprolol Tartrate 50 mg PO BID 03/05/19 07/29/19 07/28/19 History QUEtiapine 50 mg PO DAILY 03/05/19 07/29/19 Unknown History Aspirin 325 mg PO QDAY tablet 03/11/19 07/29/19 07/29/19 17:39 Rx AtorvaSTATin [Lipitor] 80 mg PO QHS tablet 03/11/19 07/29/19 Unknown Rx Lisinopril [Zestril TAB] 20 mg PO QDAY tablet 03/11/19 07/29/19 Unknown Rx traZODone [Desyrel] 50 mg PO QDAY PRN tablet 03/11/19 07/29/19 Unknown Rx Hydroxyurea [Hydrea] 500 mg PO TuThSa@1000 #30 capsule 08/05/19 Unknown Rx Active Medications: Generic Name Dose Route Start Last Admin Trade Name Freq PRN Reason Stop Dose Admin Acetaminophen 650 mg 07/29/19 05:29 Tylenol PO Q4H PRN Pain, Mild (1-3), fever 100.5> Acetaminophen/Hydrocodone Bitart 1 each 07/29/19 21:50 08/02/19 10:44 [place] 5/325 PO 1 each Q4H PRN Administration Pain, Moderate (4-6) Albuterol 2.5 mg 08/10/19 02:48 08/10/19 03:15 Proventil IH 2.5 mg Q4HRT PRN Administration Shortness Of Breath Lipase/Protease/Amylase 1 each 07/29/19 14:[address] 10,500 Unit FEEDTUBE PRN PRN For Clogged Feeding Tube Aspirin 325 mg 07/29/19 10:00 08/10/19 10:33 Aspirin PO 325 mg QDAY LESLIE Administration Atorvastatin Calcium 80 mg 07/29/19 22:00 08/09/19 21:26 Lipitor PO 80 mg QHS LESLIE Administration Bisacodyl 10 mg 07/29/19 05:29 Dulcolax ID QDAY PRN Constipation Enoxaparin Sodium 40 mg 08/08/19 10:00 08/09/19 21:26 Lovenox SUB-Q 40 mg QDAY@2200 LESLIE Administration Hydralazine HCl 10 mg 08/01/19 05:00 08/10/19 02:01 Apresoline IV 10 mg Q4HR PRN Administration Hypertension Hydroxyurea 500 mg 08/03/19 15:00 08/10/19 10:41 Hydrea PO 500 mg TuThSa@1000 LESLIE Administration Sodium Chloride 1,000 mls @ 125 mls/hr 07/29/19 13:00 07/31/19 05:11 Nacl 0.9% 1000 Ml IV 125 mls/hr DIRECT LESLIE Administration Ceftriaxone Sodium 2 gm in 100 mls @ 200 mls/hr 08/02/19 15:30 08/10/19 02:30 Rocephin/Ns 2 Gm/100 Ml IV 09/10/19 23:59 200 mls/hr Q12H LESLIE Administration Protocol Ampicillin Sodium 2 gm in 100 mls @ 100 mls/hr 08/05/19 10:00 08/10/19 10:32 Ampicillin/Ns 2 Gm/100 Ml IV 09/10/19 23:59 100 mls/hr Q4H LESLIE Administration Lisinopril 20 mg 07/29/19 10:00 08/10/19 10:32 Zestril PO 20 mg QDAY LESLIE Administration Lorazepam 1 mg 07/29/19 06:42 08/10/19 02:38 Ativan IV 1 mg Q4H PRN Administration Seizures Magnesium Hydroxide 30 ml 07/29/19 05:29 Milk Of Magnesia PO Q4H PRN Constipation Metoprolol Tartrate 50 mg 07/29/19 10:00 08/10/19 10:33 Lopressor PO 50 mg BID LESLIE Administration Ondansetron HCl 4 mg 07/29/19 05:29 08/10/19 10:49 Zofran IV 4 mg Q6H PRN Administration Nausea And Vomiting Simple Syrup 15 ml 07/29/19 14:30 Simple Syrup FEEDTUBE PRN PRN Hypoglycemia Simple Syrup 30 ml 07/29/19 14:30 Simple Syrup FEEDTUBE PRN PRN Hypoglycemia Sodium Bicarbonate 325 mg 07/29/19 14:30 Sodium Bicarbonate FEEDTUBE PRN PRN For Clogged Feeding Tube Sodium Chloride 10 ml 07/29/19 05:29 08/08/19 21:51 Sodium Chloride Flush Syringe 10 Ml IV 10 ml PRN PRN Administration LINE FLUSH
--- NOTE | 2019-08-10 12:13 | Progress Note ---
Assessment and Plan - Patient Problems (1) Endocarditis Current Visit: Yes Status: Acute Plan to address problem: Patient was admitted with fever and enterococcal sepsis, echocardiogram showed acute mitral valve endocarditis. There is moderate mitral regurgitation, and mild to moderate aortic regurgitation. The aortic regurgitation is chronic and was seen on prior echocardiogram 6 months ago. Continue intravenous antibiotic regimen. Subjective Date of service: 08/10/19 Principal diagnosis: CMPD Interval history: Patient is comfortable, no acute distress, looks and feels better. Objective Vital Signs Temp Pulse Pulse Resp Resp BP BP 08/10/19 10:33 76 131/87 08/10/19 10:32 76 131/87 08/10/19 08:06 76 08/10/19 08:00 97.6 F 76 16 131/87 08/10/19 04:37 98.0 F 86 18 156/95 08/10/19 03:15 80 20 08/09/19 23:23 98.0 F 71 18 179/90 08/09/19 22:13 08/09/19 19:25 98.0 F 20 163/83 08/09/19 19:21 98.0 F 74 20 201/83 08/09/19 17:16 98.4 F 77 18 185/80 Pulse Ox 08/10/19 10:33 08/10/19 10:32 08/10/19 08:06 100 08/10/19 08:00 100 08/10/19 04:37 99 08/10/19 03:15 98 08/09/19 23:23 95 08/09/19 22:13 97 08/09/19 19:25 08/09/19 19:21 98 08/09/19 17:16 98 - Physical Examination General: No Apparent Distress HEENT: Positive: PERRL Neck: Positive: trachea midline Cardiac: Positive: Reg Rate and Rhythm Lungs: Positive: Decreased Breath Sounds Neuro: Positive: Weakness Abdomen: Positive: Active Bowel Sounds Skin: Positive: Clear Extremities: Absent: edema
--- NOTE | 2019-08-10 12:47 | Progress Note ---
Assessment and Plan Assessment and plan: Patient is a 53-year-old -[place] man who is nonverbal with history of COPD, hypertension, dyslipidemia, JAK2 positive with thrombocytosis and CVA 2 (hemorrhagic 11/2018 and ischemic 02/2019) with right-sided residual deficits who presents to [facility] ED with Altered mental status and difficulty breathing. He is unable to provide history; According to patient's family patient was found to be less responsive with difficulty breathing. EMS was called. Upon EMS' arrival to home he was found to be hypertensive with SBP in 200's, febrile, and tachycardic with audible wheezing. He was given albuterol nebulizer treatment. 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 Oth erwise, the CTA of the head appears unremarkable * CTA neck with and without contrast: There is mild calcified plaque involving the proximal left ICA. However, there no CTA evidence of significant stenosis involving cervical carotid or vertebral arteries by NASCET criteria. * CXR: There is mild increase in interstitial markings bilaterally likely representing mild edema. * 07/30/19 MRI brain without contrast Impression: No focal mass, acute hemorrhage, hydrocephalus or acute ischemia * TTE: 1. Mitral valve vegetation. 2. Moderate MR. 3. Normal LV function EF 55- 60%. 4. Mild-moderate AR. Cultures: 07/29/2019 Blood culture: Enterococcus faecalis Urine culture: mixed growth 07/30/2019 Blood culture: no growth at 48 hours Sepsis secondary to Acute mitral valve endocarditis with Enterococcus: TTE showed mitral valve vegetation. Appreciate Cardiology recs, no surgical inter vention. -Picc line placed. discontinued Vancomycin. 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 Discussed with Case Management, orders placed. -LP done, doubt meningitis from preliminary studies, isolation discontinued UTI- Ruled out as source -Urine WBC 10.0 -Urine culture no growth -On IV Abx Pneumonia -CXR shows mild increase in interstitial markings bilaterally -Blood Cultures ENTERROCOCCUS -per ID Acute encephalopathy secondary to Seizure precipitated by sepsis -Likely due to Sepsis or possibly seizure -Evaluated by Dr. Slaughter (tele-neurology) -Neuro Checks -Continue to monitor -Neurology consulted and input noted. Possible seizure rather than CVA also as evidenced by CT head, with no acute cva noted. No further AED since this is secondary to fever Hypertension -Continue to monitor BP -Resume home antihypertensive meds to optimize BP History of CVA -Hemorrhagic CVA 11/2018 -Ischemic CVA 02/2019 -Right-sided residual deficits -PT/OT eval recommending home with home health -Continue aspirin and statin therapy Type 2 mi -Troponin elevated at 0.170 -Will continue to trend -Cardiology input noted Elevated d-dimer -D-dimer elevated at 1354.97 -V/Q scan negative for PE Thrombocytosis JAK2 positive Dysphagia -Tolerating diet, although may need change in consistence due to intermittent cough, Barium study was negative. DVT PPX -SCD's -start sq lovenox, d/w Heme/Onc Discharge once IV abx arranged asking for 787 form SSN form to be signed to enable them obtain information about the Disability as the patient is not able to speek due to the stroke. Dr. Fletcher did not want to sign because unsure if Patient is agreeable due to aphasia, and risk management agreed. Await placement History Interval history: Patient was seen and examined. Follow-up on current diagnosis of MV Endocarditis. No overnight events reported to me. Imaging, nursing note, chart, labs and old chart reviewed. Hospitalist Physical - Physical exam Narrative exam: Gen: WDWN, NAD, Awake, Alert, Orientated x 1 HEENT: NCAT, EOMI, PERRL, OP Clear Neck: supple, no adenopathy, no thyromegaly, no JVD CVS/Heart: RRR, normal S1S2, pulses present bilaterally Chest/Lungs: CTA B, Symmetrical chest expansion, good air entry bilaterally GI/Abdomen: soft, NTND, good bowel sounds, no guarding or rebound /Bladder: no suprapubic tenderness, no CVA or paraspinal tenderness Extermity/Skin: no c/c/e, no obvious rash MSK: FROM x 4 Neuro: CN 2-12 grossly intact, no new focal deficits but with residual deficits, expressive aphasia Psych: calm - Constitutional Vitals: Temp Pulse Resp BP Pulse Ox 97.6 F 76 16 131/87 100 08/10/19 08:00 08/10/19 10:33 08/10/19 08:00 08/10/19 10:33 08/10/19 08:06 General appearance: Present: no acute distress Results - Labs CBC & Chem 7: 08/06/19 06:00 08/05/19 08:40 Labs: Laboratory Last Values WBC 5.3 K/mm3 (4.5-11.0) 08/06/19 06:00 RBC 2.64 M/mm3 (3.65-5.03) L 08/06/19 06:00 Hgb 9.5 gm/dl (11.8-15.2) L 08/06/19 06:00 Hct 28.5 % (35.5-45.6) L 08/06/19 06:00 MCV 108 fl (84-94) H 08/06/19 06:00 MCH 36 pg (28-32) H 08/06/19 06:00 MCHC 33 % (32-34) 08/06/19 06:00 RDW 23.4 % (13.2-15.2) H 08/06/19 06:00 Plt Count 327 K/mm3 (140-440) 08/06/19 06:00 Lymph % (Auto) 35.6 % (13.4-35.0) H 08/05/19 08:40 [place] % (Auto) 8.3 % (0.0-7.3) H 08/05/19 08:40 Eos % (Auto) 2.8 % (0.0-4.3) 08/05/19 08:40 Baso % (Auto) 1.2 % (0.0-1.8) 08/05/19 08:40 Lymph # 1.9 K/mm3 (1.2-5.4) 08/05/19 08:40 [place] # 0.4 K/mm3 (0.0-0.8) 08/05/19 08:40 Eos # 0.2 K/mm3 (0.0-0.4) 08/05/19 08:40 Baso # 0.1 K/mm3 (0.0-0.1) 08/05/19 08:40 Add Manual Diff Complete 07/29/19 00:42 Total Counted 100 07/29/19 00:42 Seg Neutrophils % 52.1 % (40.0-70.0) 08/05/19 08:40 Seg Neuts % (Manual) 82.0 % (40.0-70.0) H 07/29/19 00:42 0 % 07/29/19 00:42 16.0 % (13.4-35.0) 07/29/19 00:42 Reactive Lymphs % (Man) 0 % 07/29/19 00:42 1.0 % (0.0-7.3) 07/29/19 00:42 0 % (0.0-4.3) 07/29/19 00:42 1.0 % (0.0-1.8) 07/29/19 00:42 0 % 07/29/19 00:42 0 % 07/29/19 00:42 0 % 07/29/19 00:42 0 % 07/29/19 00:42 Nucleated RBC % Not Reportable 07/29/19 00:42 Seg Neutrophils # 2.8 K/mm3 (1.8-7.7) 08/05/19 08:40 Seg Neutrophils # Man 1.6 K/mm3 (1.8-7.7) L 07/29/19 00:42 Band Neutrophils # 0.0 K/mm3 07/29/19 00:42 0.3 K/mm3 (1.2-5.4) L 07/29/19 00:42 Abs React Lymphs (Man) 0.0 K/mm3 07/29/19 00:42 0.0 K/mm3 (0.0-0.8) 07/29/19 00:42 0.0 K/mm3 (0.0-0.4) 07/29/19 00:42 0.0 K/mm3 (0.0-0.1) 07/29/19 00:42 0.0 K/mm3 07/29/19 00:42 0.0 K/mm3 07/29/19 00:42 0.0 K/mm3 07/29/19 00:42 Blast Cells # 0.0 K/mm3 07/29/19 00:42 WBC Morphology Not Reportable 07/29/19 00:42 Hypersegmented Neuts Not Reportable 07/29/19 00:42 Hyposegmented Neuts Not Reportable 07/29/19 00:42 Hypogranular Neuts Not Reportable 07/29/19 00:42 Not Reportable 07/29/19 00:42 Not Reportable 07/29/19 00:42 Not Reportable 07/29/19 00:42 Not Reportable 07/29/19 00:42 Not Reportable 07/29/19 00:42 Not Reportable 07/29/19 00:42 Not Reportable 07/29/19 00:42 Not Reportable 07/29/19 00:42 Plt Clumps, EDTA Not Reportable 07/29/19 00:42 Not Reportable 07/29/19 00:42 Not Reportable 07/29/19 00:42 Not Reportable 07/29/19 00:42 Plt Morphology Comment Not Reportable 07/29/19 00:42 RBC Morphology Not Reportable 07/29/19 00:42 Dimorphic RBCs Not Reportable 07/29/19 00:42 Not Reportable 07/29/19 00:42 Not Reportable 07/29/19 00:42 Not Reportable 07/29/19 00:42 2+ 07/29/19 00:42 Not Reportable 07/29/19 00:42 Not Reportable 07/29/19 00:42 Not Reportable 07/29/19 00:42 Not Reportable 07/29/19 00:42 Not Reportable 07/29/19 00:42 Not Reportable 07/29/19 00:42 Not Reportable 07/29/19 00:42 Not Reportable 07/29/19 00:42 Not Reportable 07/29/19 00:42 Not Reportable 07/29/19 00:42 Not Reportable 07/29/19 00:42 Not Reportable 07/29/19 00:42 Not Reportable 07/29/19 00:42 Not Reportable 07/29/19 00:42 Not Reportable 07/29/19 00:42 Acanthocytes (Spur) Not Reportable 07/29/19 00:42 Rouleaux Not Reportable 07/29/19 00:42 Not Reportable 07/29/19 00:42 Not Reportable 07/29/19 00:42 Not Reportable 07/29/19 00:42 Not Reportable 07/29/19 00:42 Hem Pathologist Commnt No 07/29/19 00:42 PT 13.8 Sec. (12.2-14.9) 07/29/19 00:42 INR 1.09 (0.87-1.13) 07/29/19 00:42 APTT 26.5 Sec. (24.2-36.6) 07/29/19 00:42 17.2 Sec. (15.1-19.6) 07/29/19 00:42 1354.97 ng/mlDDU (0-234) H 07/29/19 00:42 Sodium 143 mmol/L (137-145) 08/05/19 08:40 Potassium 3.8 mmol/L (3.6-5.0) 08/05/19 08:40 Chloride 105.1 mmol/L (98-107) 08/05/19 08:40 Carbon Dioxide 29 mmol/L (22-30) 08/05/19 08:40 13 mmol/L 08/05/19 08:40 BUN 14 mg/dL (9-20) 08/05/19 08:40 0.9 mg/dL (0.8-1.5) 08/05/19 08:40 Estimated GFR > 60 ml/min 08/05/19 08:40 16 % 08/05/19 08:40 Glucose 88 mg/dL (75-100) 08/05/19 08:40 POC Glucose 83 (70-105) 08/07/19 07:40 Lactic Acid 1.80 mmol/L (0.7-2.0) 07/29/19 12:58 Calcium 8.4 mg/dL (8.4-10.2) 08/05/19 08:40 Iron 82 ug/dL (49-181) 08/01/19 06:54 TIBC 224 mcg/dL (250-450) L 08/01/19 06:54 1110.0 ng/mL (13.0-400.0) H 08/01/19 06:54 0.40 mg/dL (0.1-1.2) 08/05/19 08:40 AST 19 units/L (5-40) 08/05/19 08:40 ALT 13 units/L (7-56) 08/05/19 08:40 64 units/L (35-129) 08/05/19 08:40 184 units/L (55-170) H 07/29/19 12:58 CK-MB (CK-2) 2.8 ng/mL (0.0-4.0) 07/29/19 12:58 CK-MB (CK-2) Rel Index 1.5 (0-4) 07/29/19 12:58 0.114 ng/mL (0.00-0.029) H* D 07/29/19 10:44 NT-Pro-B Natriuret Pep 1767 pg/mL (0-900) H 07/29/19 02:03 7.8 g/dL (6.3-8.2) 08/05/19 08:40 3.2 g/dL (3.9-5) L 08/05/19 08:40 0.7 % 08/05/19 08:40 Triglycerides TNR 07/29/19 00:42 Cholesterol TNR 07/29/19 00:42 TNR 07/29/19 00:42 TNR 07/29/19 00:42 TNR 07/29/19 00:42 Vitamin B12 1858 pg/mL (211-911) H 08/01/19 06:54 15.28 ng/mL (7.3-26.0) 08/01/19 06:54 Yellow (Yellow) 07/29/19 01:50 Slightly-cloudy (Clear) 07/29/19 01:50 5.0 (5.0-7.0) 07/29/19 01:50 Ur Specific [place] 1.017 (1.003-1.030) 07/29/19 01:50 100 mg/dl mg/dL (Negative) 07/29/19 01:50 Neg mg/dL (Negative) 07/29/19 01:50 Neg mg/dL (Negative) 07/29/19 01:50 Mod (Negative) 07/29/19 01:50 Pos (Negative) 07/29/19 01:50 Neg (Negative) 07/29/19 01:50 2.0 mg/dL (<2.0) 07/29/19 01:50 Ur Leukocyte Esterase Tr (Negative) 07/29/19 01:50 10.0 /HPF (0.0-6.0) H 07/29/19 01:50 41.0 /HPF (0.0-6.0) 07/29/19 01:50 U Epithel Cells (Auto) 1.0 /HPF (0-13.0) 07/29/19 01:50 2+ /HPF (Negative) 07/29/19 01:50 Few /HPF 07/29/19 01:50 Clear 07/30/19 12:00 Colorless 07/30/19 12:00 3 /mm3 (1-10) 07/30/19 12:00 75 /mm3 (0-0) 07/30/19 12:00 CSF Seg Neutrophils 5.6 % (0-6) 07/30/19 12:00 88.9 % (40-80) 07/30/19 12:00 CSF Reactive Lymphs 0 % 07/30/19 12:00 5.6 % (15-45) 07/30/19 12:00 0 % 07/30/19 12:00 0 % 07/30/19 12:00 C 07/30/19 12:00 64 mg/dL 07/30/19 12:00 31 mg/dL 07/30/19 12:00 Nonreactive (Nonreactive) 07/30/19 12:00 Vancomycin Trough 19.6 ug/mL (5.0-20.0) 08/01/19 07:50 Active Medications - Current Medications Current Medications: Generic Name Dose Route Start Last Admin Trade Name Freq PRN Reason Stop Dose Admin Acetaminophen 650 mg 07/29/19 05:29 Tylenol PO Q4H PRN Pain, Mild (1-3), fever 100.5> Acetaminophen/Hydrocodone Bitart 1 each 07/29/19 21:50 08/02/19 10:44 [place] 5/325 PO 1 each Q4H PRN Administration Pain, Moderate (4-6) Albuterol 2.5 mg 08/10/19 02:48 08/10/19 03:15 Proventil IH 2.5 mg Q4HRT PRN Administration Shortness Of Breath Lipase/Protease/Amylase 1 each 07/29/19 14:[address] 10,500 Unit FEEDTUBE PRN PRN For Clogged Feeding Tube Aspirin 325 mg 07/29/19 10:00 08/10/19 10:33 Aspirin PO 325 mg QDAY LESLIE Administration Atorvastatin Calcium 80 mg 07/29/19 22:00 08/09/19 21:26 Lipitor PO 80 mg QHS LESLIE Administration Bisacodyl 10 mg 07/29/19 05:29 Dulcolax MS QDAY PRN Constipation Enoxaparin Sodium 40 mg 08/08/19 10:00 08/09/19 21:26 Lovenox SUB-Q 40 mg QDAY@2200 LESLIE Administration Hydralazine HCl 10 mg 08/01/19 05:00 08/10/19 02:01 Apresoline IV 10 mg Q4HR PRN Administration Hypertension Hydroxyurea 500 mg 08/03/19 15:00 08/10/19 10:41 Hydrea PO 500 mg TuThSa@1000 LESLIE Administration Sodium Chloride 1,000 mls @ 125 mls/hr 07/29/19 13:00 07/31/19 05:11 Nacl 0.9% 1000 Ml IV 125 mls/hr DIRECT LESLIE Administration Ceftriaxone Sodium 2 gm in 100 mls @ 200 mls/hr 08/02/19 15:30 08/10/19 02:30 Rocephin/Ns 2 Gm/100 Ml IV 09/10/19 23:59 200 mls/hr Q12H LESLIE Administration Protocol Ampicillin Sodium 2 gm in 100 mls @ 100 mls/hr 08/05/19 10:00 08/10/19 10:32 Ampicillin/Ns 2 Gm/100 Ml IV 09/10/19 23:59 100 mls/hr Q4H LESLIE Administration Lisinopril 20 mg 07/29/19 10:00 08/10/19 10:32 Zestril PO 20 mg QDAY LESLIE Administration Lorazepam 1 mg 07/29/19 06:42 08/10/19 02:38 Ativan IV 1 mg Q4H PRN Administration Seizures Magnesium Hydroxide 30 ml 07/29/19 05:29 Milk Of Magnesia PO Q4H PRN Constipation Metoprolol Tartrate 50 mg 07/29/19 10:00 08/10/19 10:33 Lopressor PO 50 mg BID LESLIE Administration Ondansetron HCl 4 mg 07/29/19 05:29 08/10/19 10:49 Zofran IV 4 mg Q6H PRN Administration Nausea And Vomiting Simple Syrup 15 ml 07/29/19 14:30 Simple Syrup FEEDTUBE PRN PRN Hypoglycemia Simple Syrup 30 ml 07/29/19 14:30 Simple Syrup FEEDTUBE PRN PRN Hypoglycemia Sodium Bicarbonate 325 mg 07/29/19 14:30 Sodium Bicarbonate FEEDTUBE PRN PRN For Clogged Feeding Tube Sodium Chloride 10 ml 07/29/19 05:29 08/08/19 21:51 Sodium Chloride Flush Syringe 10 Ml IV 10 ml PRN PRN Administration LINE FLUSH Nutrition/Malnutrition Assess - Dietary Evaluation Nutrition/Malnutrition Findings: Nutrition Notes Start: 07/29/19 14:00 Freq: Status: Active Protocol: Document 08/09/19 11:24 KS (Rec: 08/09/19 12:24 KS [id number]) Co-Sign 08/09/19 11:24 LM Nutrition Notes Initial or Follow up Reassessment Current Diagnosis COPD,Sepsis,Hypertension, Hyperlipidemia Other Pertinent Diagnosis Hx CVA X 2, Nonverbal,UTI,Pneu , Acute encephalopathy, Suspicion of seizure Current Diet Pureed Diet Labs/Tests Reviewed Pertinent Medications Reviewed Height 5 ft 9 in Weight 80.9 kg [place] Body Weight (kg) 72.72 BMI 26.3 Weight change and time frame Wt loss noted. Subjective/Other Information Pt reports eating 75% of meals . Pt also eating food from outside hospital. Pt reports drinking Ensure Clear BID. Pt reports good appetite and no N /V. Pt reports no difficulty with chewing or swallowing on pureed diet. Per [employer] SCHEDULER pt can eat a Regular Diet. Percent of energy/protein needs met: 100%/100% Burn Absent Trauma Absent Minimum of two criteria No #1 Nutrition Diagnosis Inadequate oral intake As Evidenced by Signs and Symptoms Pt eating >75% of meals. Pt drinking Ensure Clear BID. Pt eating additional food from outside hospital. Diagnosis Progress(for reassessment Improved documentation) Is patient on ventilator? No Is Patient Ambulatory and/or Out of Bed No REE-([place]urbin-St Jeor-confined to bed) 1977.372 Calculation Used [facility]ations [facility] Additional Notes PRO: 81-97g (1-1.2g/kg/day) Fluid: 1mL/kcal Nutrition Intervention Change Diet Order: Change to Cardiac Diet Goal #1 Continue to meet at least 75% of energy/PRO needs via PO intakes. Anticipated Discharge Needs: Cardiac Diet Follow-Up By: 08/14/19 Additional Comments FU for PO intakes
[2019-08-10 13:25] LABS: Basophils # (Auto) 0.1 K/mm3 (0.0-0.1); Basophils % (Auto) 1.4 % (0.0-1.8); Eosinophils # (Auto) 0.2 K/mm3 (0.0-0.4); Eosinophils % (Auto) 5.9 % (0.0-4.3); Hematocrit 29.4 % (35.5-45.6); Hemoglobin 9.6 gm/dl (11.8-15.2); Lymphocytes # (Auto) 1.2 K/mm3 (1.2-5.4); Lymphocytes % (Auto) 33.3 % (13.4-35.0); Mean Corpuscular HGB Conc 33 % (32-34); Mean Corpuscular Volume 110 fl (84-94); Monocytes # (Auto) 0.2 K/mm3 (0.0-0.8); Monocytes % (Auto) 6.4 % (0.0-7.3); Platelet Count 327 K/mm3 (140-440); Red Blood Count 2.68 M/mm3 (3.65-5.03)
[2019-08-10 13:30] LABS: Red Cell Distribution Width 21.2 % (13.2-15.2)
[2019-08-10 14:12] LABS: Alanine Aminotransferase 11 units/L (7-56); Albumin 3.3 g/dL (3.9-5); BUN/Creatinine Ratio 11; Blood Urea Nitrogen 10 mg/dL (9-20); Calcium 8.7 mg/dL (8.4-10.2); Hemolysis Index 4
[2019-08-10] MEDS: SODIUM CHLORIDE FLUSH SYRINGE 10 ML IV PRN ×2 (21:26→21:51)
[2019-08-10] MEDS: ENOXAPARIN SUB-Q SCH (21:27)
[2019-08-11] MEDS: AMPICILLIN/NS 2 GM/100 ML 2 GM/100 ML BAG IV SCH ×6 (02:00→21:27)
[2019-08-11] MEDS: ROCEPHIN/NS 2 GM/100 ML 2 GM/100 ML BAG IV SCH ×2 (03:03→16:38)
[2019-08-11] MEDS: PROVENTIL IH PRN ×2 (08:45→17:54)
[2019-08-11] MEDS: ZESTRIL PO SCH (09:12)
[2019-08-11] MEDS: ASPIRIN PO SCH (09:12)
[2019-08-11] MEDS: METOPROLOL PO SCH ×2 (09:13→21:24)
[2019-08-11] MEDS: ATIVAN IV PRN ×2 (09:17→21:24)
--- NOTE | 2019-08-11 09:53 | Progress Note ---
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 He is unable to provide history; According to patient's family patient was found to be less responsive with difficulty breathing. EMS was called. Upon EMS' arrival to home he was found to be hypertensive with SBP in 200's, febrile, and tachycardic with audible wheezing. He was given albuterol nebulizer treatment. 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 Oth erwise, the CTA of the head appears unremarkable * CTA neck with and without contrast: There is mild calcified plaque involving the proximal left ICA. However, there no CTA evidence of significant stenosis involving cervical carotid or vertebral arteries by NASCET criteria. * CXR: There is mild increase in interstitial markings bilaterally likely representing mild edema. * 07/30/19 MRI brain without contrast Impression: No focal mass, acute hemorrhage, hydrocephalus or acute ischemia * TTE: 1. Mitral valve vegetation. 2. Moderate MR. 3. Normal LV function EF 55- 60%. 4. Mild-moderate AR. Cultures: 07/29/2019 Blood culture: Enterococcus faecalis Urine culture: mixed growth 07/30/2019 Blood culture: no growth at 48 hours Sepsis secondary to Acute mitral valve endocarditis with Enterococcus: TTE showed mitral valve vegetation. Appreciate Cardiology recs, no surgical inter vention. -Picc line placed. discontinued Vancomycin. 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 Discussed with Case Management, orders placed. -LP done, doubt meningitis from preliminary studies, isolation discontinued UTI- Ruled out as source -Urine WBC 10.0 -Urine culture no growth -On IV Abx Pneumonia -CXR shows mild increase in interstitial markings bilaterally -Blood Cultures ENTERROCOCCUS -per ID Acute encephalopathy secondary to Seizure precipitated by sepsis -Likely due to Sepsis or possibly seizure -Evaluated by Dr. Slaughter (tele-neurology) -Neuro Checks -Continue to monitor -Neurology consulted and input noted. Possible seizure rather than CVA also as evidenced by CT head, with no acute cva noted. No further AED since this is secondary to fever Hypertension -Continue to monitor BP -Resume home antihypertensive meds to optimize BP History of CVA -Hemorrhagic CVA 11/2018 -Ischemic CVA 02/2019 -Right-sided residual deficits -PT/OT eval recommending home with home health -Continue aspirin and statin therapy Type 2 mi -Troponin elevated at 0.170 -Will continue to trend -Cardiology input noted Elevated d-dimer -D-dimer elevated at 1354.97 -V/Q scan negative for PE Thrombocytosis JAK2 positive Dysphagia -Tolerating diet, although may need change in consistence due to intermittent cough, Barium study was negative. DVT PPX -SCD's -start sq lovenox, d/w Heme/Onc Discharge once IV abx arranged asking for 787 form SSN form to be signed to enable them obtain information about the Disability as the patient is not able to speek due to the stroke. Dr. Fletcher did not want to sign because unsure if Patient is agreeable due to aphasia, and risk management agreed. Await placement History Interval history: Patient was seen and examined. Follow-up on current diagnosis of MV Endocarditis. No overnight events reported to me. Imaging, nursing note, chart, labs and old chart reviewed. Hospitalist Physical - Physical exam Narrative exam: Gen: WDWN, NAD, Awake, Alert, Orientated x 1 HEENT: NCAT, EOMI, PERRL, OP Clear Neck: supple, no adenopathy, no thyromegaly, no JVD CVS/Heart: RRR, normal S1S2, pulses present bilaterally Chest/Lungs: CTA B, Symmetrical chest expansion, good air entry bilaterally GI/Abdomen: soft, NTND, good bowel sounds, no guarding or rebound /Bladder: no suprapubic tenderness, no CVA or paraspinal tenderness Extermity/Skin: no c/c/e, no obvious rash MSK: FROM x 4 Neuro: CN 2-12 grossly intact, no new focal deficits but with residual deficits, expressive aphasia Psych: calm - Constitutional Vitals: Temp Pulse Resp BP Pulse Ox 97.5 F L 82 16 143/83 100 08/11/19 07:48 08/11/19 09:13 08/11/19 08:45 08/11/19 07:48 08/11/19 08:45 General appearance: Present: no acute distress Results - Labs CBC & Chem 7: 08/10/19 13:19 08/10/19 13:19 Labs: Laboratory Last Values WBC 3.7 K/mm3 (4.5-11.0) L 08/10/19 13:19 RBC 2.68 M/mm3 (3.65-5.03) L 08/10/19 13:19 Hgb 9.6 gm/dl (11.8-15.2) L 08/10/19 13:19 Hct 29.4 % (35.5-45.6) L 08/10/19 13:19 MCV 110 fl (84-94) H 08/10/19 13:19 MCH 36 pg (28-32) H 08/10/19 13:19 MCHC 33 % (32-34) 08/10/19 13:19 RDW 21.2 % (13.2-15.2) H 08/10/19 13:19 Plt Count 327 K/mm3 (140-440) 08/10/19 13:19 Lymph % (Auto) 33.3 % (13.4-35.0) 08/10/19 13:19 [place] % (Auto) 6.4 % (0.0-7.3) 08/10/19 13:19 Eos % (Auto) 5.9 % (0.0-4.3) H 08/10/19 13:19 Baso % (Auto) 1.4 % (0.0-1.8) 08/10/19 13:19 Lymph # 1.2 K/mm3 (1.2-5.4) 08/10/19 13:19 [place] # 0.2 K/mm3 (0.0-0.8) 08/10/19 13:19 Eos # 0.2 K/mm3 (0.0-0.4) 08/10/19 13:19 Baso # 0.1 K/mm3 (0.0-0.1) 08/10/19 13:19 Add Manual Diff Complete 07/29/19 00:42 Total Counted 100 07/29/19 00:42 Seg Neutrophils % 53.0 % (40.0-70.0) 08/10/19 13:19 Seg Neuts % (Manual) 82.0 % (40.0-70.0) H 07/29/19 00:42 0 % 07/29/19 00:42 16.0 % (13.4-35.0) 07/29/19 00:42 Reactive Lymphs % (Man) 0 % 07/29/19 00:42 1.0 % (0.0-7.3) 07/29/19 00:42 0 % (0.0-4.3) 07/29/19 00:42 1.0 % (0.0-1.8) 07/29/19 00:42 0 % 07/29/19 00:42 0 % 07/29/19 00:42 0 % 07/29/19 00:42 0 % 07/29/19 00:42 Nucleated RBC % Not Reportable 07/29/19 00:42 Seg Neutrophils # 2.0 K/mm3 (1.8-7.7) 08/10/19 13:19 Seg Neutrophils # Man 1.6 K/mm3 (1.8-7.7) L 07/29/19 00:42 Band Neutrophils # 0.0 K/mm3 07/29/19 00:42 0.3 K/mm3 (1.2-5.4) L 07/29/19 00:42 Abs React Lymphs (Man) 0.0 K/mm3 07/29/19 00:42 0.0 K/mm3 (0.0-0.8) 07/29/19 00:42 0.0 K/mm3 (0.0-0.4) 07/29/19 00:42 0.0 K/mm3 (0.0-0.1) 07/29/19 00:42 0.0 K/mm3 07/29/19 00:42 0.0 K/mm3 07/29/19 00:42 0.0 K/mm3 07/29/19 00:42 Blast Cells # 0.0 K/mm3 07/29/19 00:42 WBC Morphology Not Reportable 07/29/19 00:42 Hypersegmented Neuts Not Reportable 07/29/19 00:42 Hyposegmented Neuts Not Reportable 07/29/19 00:42 Hypogranular Neuts Not Reportable 07/29/19 00:42 Not Reportable 07/29/19 00:42 Not Reportable 07/29/19 00:42 Not Reportable 07/29/19 00:42 Not Reportable 07/29/19 00:42 Not Reportable 07/29/19 00:42 Not Reportable 07/29/19 00:42 Not Reportable 07/29/19 00:42 Not Reportable 07/29/19 00:42 Plt Clumps, EDTA Not Reportable 07/29/19 00:42 Not Reportable 07/29/19 00:42 Not Reportable 07/29/19 00:42 Not Reportable 07/29/19 00:42 Plt Morphology Comment Not Reportable 07/29/19 00:42 RBC Morphology Not Reportable 07/29/19 00:42 Dimorphic RBCs Not Reportable 07/29/19 00:42 Not Reportable 07/29/19 00:42 Not Reportable 07/29/19 00:42 Not Reportable 07/29/19 00:42 2+ 07/29/19 00:42 Not Reportable 07/29/19 00:42 Not Reportable 07/29/19 00:42 Not Reportable 07/29/19 00:42 Not Reportable 07/29/19 00:42 Not Reportable 07/29/19 00:42 Not Reportable 07/29/19 00:42 Not Reportable 07/29/19 00:42 Not Reportable 07/29/19 00:42 Not Reportable 07/29/19 00:42 Not Reportable 07/29/19 00:42 Not Reportable 07/29/19 00:42 Not Reportable 07/29/19 00:42 Not Reportable 07/29/19 00:42 Not Reportable 07/29/19 00:42 Not Reportable 07/29/19 00:42 Acanthocytes (Spur) Not Reportable 07/29/19 00:42 [place]le[place] Not Reportable 07/29/19 00:42 Not Reportable 07/29/19 00:42 Not Reportable 07/29/19 00:42 Not Reportable 07/29/19 00:42 Not Reportable 07/29/19 00:42 Hem Pathologist Commnt No 07/29/19 00:42 PT 13.8 Sec. (12.2-14.9) 07/29/19 00:42 INR 1.09 (0.87-1.13) 07/29/19 00:42 APTT 26.5 Sec. (24.2-36.6) 07/29/19 00:42 17.2 Sec. (15.1-19.6) 07/29/19 00:42 1354.97 ng/mlDDU (0-234) H 07/29/19 00:42 Sodium 141 mmol/L (137-145) 08/10/19 13:19 Potassium 3.7 mmol/L (3.6-5.0) 08/10/19 13:19 Chloride 105.4 mmol/L (98-107) 08/10/19 13:19 Carbon Dioxide 25 mmol/L (22-30) 08/10/19 13:19 14 mmol/L 08/10/19 13:19 BUN 10 mg/dL (9-20) 08/10/19 13:19 0.9 mg/dL (0.8-1.5) 08/10/19 13:19 Estimated GFR > 60 ml/min 08/10/19 13:19 11 % 08/10/19 13:19 Glucose 113 mg/dL (75-100) H 08/10/19 13:19 POC Glucose 83 (70-105) 08/07/19 07:40 Lactic Acid 1.80 mmol/L (0.7-2.0) 07/29/19 12:58 Calcium 8.7 mg/dL (8.4-10.2) 08/10/19 13:19 Iron 82 ug/dL (49-181) 08/01/19 06:54 TIBC 224 mcg/dL (250-450) L 08/01/19 06:54 1110.0 ng/mL (13.0-400.0) H 08/01/19 06:54 0.30 mg/dL (0.1-1.2) 08/10/19 13:19 AST 14 units/L (5-40) 08/10/19 13:19 ALT 11 units/L (7-56) 08/10/19 13:19 69 units/L (35-129) 08/10/19 13:19 184 units/L (55-170) H 07/29/19 12:58 CK-MB (CK-2) 2.8 ng/mL (0.0-4.0) 07/29/19 12:58 CK-MB (CK-2) Rel Index 1.5 (0-4) 07/29/19 12:58 0.114 ng/mL (0.00-0.029) H* D 07/29/19 10:44 NT-Pro-B Natriuret Pep 1767 pg/mL (0-900) H 07/29/19 02:03 7.8 g/dL (6.3-8.2) 08/10/19 13:19 3.3 g/dL (3.9-5) L 08/10/19 13:19 0.7 % 08/10/19 13:19 Triglycerides TNR 07/29/19 00:42 Cholesterol TNR 07/29/19 00:42 TNR 07/29/19 00:42 TNR 07/29/19 00:42 TNR 07/29/19 00:42 Vitamin B12 1858 pg/mL (211-911) H 08/01/19 06:54 15.28 ng/mL (7.3-26.0) 08/01/19 06:54 Yellow (Yellow) 07/29/19 01:50 Slightly-cloudy (Clear) 07/29/19 01:50 5.0 (5.0-7.0) 07/29/19 01:50 Ur Specific [place] 1.017 (1.003-1.030) 07/29/19 01:50 100 mg/dl mg/dL (Negative) 07/29/19 01:50 Neg mg/dL (Negative) 07/29/19 01:50 Neg mg/dL (Negative) 07/29/19 01:50 Mod (Negative) 07/29/19 01:50 Pos (Negative) 07/29/19 01:50 Neg (Negative) 07/29/19 01:50 2.0 mg/dL (<2.0) 07/29/19 01:50 Ur Leukocyte Esterase Tr (Negative) 07/29/19 01:50 10.0 /HPF (0.0-6.0) H 07/29/19 01:50 41.0 /HPF (0.0-6.0) 07/29/19 01:50 U Epithel Cells (Auto) 1.0 /HPF (0-13.0) 07/29/19 01:50 2+ /HPF (Negative) 07/29/19 01:50 Few /HPF 07/29/19 01:50 Clear 07/30/19 12:00 Colorless 07/30/19 12:00 3 /mm3 (1-10) 07/30/19 12:00 75 /mm3 (0-0) 07/30/19 12:00 CSF Seg Neutrophils 5.6 % (0-6) 07/30/19 12:00 88.9 % (40-80) 07/30/19 12:00 CSF Reactive Lymphs 0 % 07/30/19 12:00 5.6 % (15-45) 07/30/19 12:00 0 % 07/30/19 12:00 0 % 07/30/19 12:00 C 07/30/19 12:00 64 mg/dL 07/30/19 12:00 31 mg/dL 07/30/19 12:00 Nonreactive (Nonreactive) 07/30/19 12:00 Vancomycin Trough 19.6 ug/mL (5.0-20.0) 08/01/19 07:50 Active Medications - Current Medications Current Medications: Generic Name Dose Route Start Last Admin Trade Name Freq PRN Reason Stop Dose Admin Acetaminophen 650 mg 07/29/19 05:29 Tylenol PO Q4H PRN Pain, Mild (1-3), fever 100.5> Acetaminophen/Hydrocodone Bitart 1 each 07/29/19 21:50 08/02/19 10:44 [place] 5/325 PO 1 each Q4H PRN Administration Pain, Moderate (4-6) Albuterol 2.5 mg 08/10/19 02:48 08/11/19 08:45 Proventil IH 2.5 mg Q4HRT PRN Administration Shortness Of Breath Lipase/Protease/Amylase 1 each 07/29/19 14:[address] 10,500 Unit FEEDTUBE PRN PRN For Clogged Feeding Tube Aspirin 325 mg 07/29/19 10:00 08/11/19 09:12 Aspirin PO 325 mg QDAY LESLIE Administration Atorvastatin Calcium 80 mg 07/29/19 22:00 08/10/19 21:26 Lipitor PO 80 mg QHS LESLIE Administration Bisacodyl 10 mg 07/29/19 05:29 Dulcolax [place] QDAY PRN Constipation Enoxaparin Sodium 40 mg 08/08/19 10:00 08/10/19 21:27 Lovenox SUB-Q 40 mg QDAY@2200 LESLIE Administration Hydralazine HCl 10 mg 08/01/19 05:00 08/10/19 21:27 Apresoline IV 10 mg Q4HR PRN Administration Hypertension Hydroxyurea 500 mg 08/03/19 15:00 08/10/19 10:41 Hydrea PO 500 mg TuThSa@1000 LESLIE Administration Sodium Chloride 1,000 mls @ 125 mls/hr 07/29/19 13:00 07/31/19 05:11 Nacl 0.9% 1000 Ml IV 125 mls/hr DIRECT LESLIE Administration Ceftriaxone Sodium 2 gm in 100 mls @ 200 mls/hr 08/02/19 15:30 08/11/19 03:03 Rocephin/Ns 2 Gm/100 Ml IV 09/10/19 23:59 200 mls/hr Q12H LESLIE Administration Protocol Ampicillin Sodium 2 gm in 100 mls @ 100 mls/hr 08/05/19 10:00 08/11/19 09:13 Ampicillin/Ns 2 Gm/100 Ml IV 09/10/19 23:59 100 mls/hr Q4H LESLIE Administration Lisinopril 20 mg 07/29/19 10:00 08/11/19 09:12 Zestril PO 20 mg QDAY LESLIE Administration Lorazepam 1 mg 07/29/19 06:42 08/11/19 09:17 Ativan IV 1 mg Q4H PRN Administration Seizures Magnesium Hydroxide 30 ml 07/29/19 05:29 Milk Of Magnesia PO Q4H PRN Constipation Metoprolol Tartrate 50 mg 07/29/19 10:00 08/11/19 09:13 Lopressor PO 50 mg BID LESLIE Administration Ondansetron HCl 4 mg 07/29/19 05:29 08/10/19 10:49 Zofran IV 4 mg Q6H PRN Administration Nausea And Vomiting Simple Syrup 15 ml 07/29/19 14:30 Simple Syrup FEEDTUBE PRN PRN Hypoglycemia Simple Syrup 30 ml 07/29/19 14:30 Simple Syrup FEEDTUBE PRN PRN Hypoglycemia Sodium Bicarbonate 325 mg 07/29/19 14:30 Sodium Bicarbonate FEEDTUBE PRN PRN For Clogged Feeding Tube Sodium Chloride 10 ml 07/29/19 05:29 08/10/19 21:51 Sodium Chloride Flush Syringe 10 Ml IV 10 ml PRN PRN Administration LINE FLUSH Nutrition/Malnutrition Assess - Dietary Evaluation Nutrition/Malnutrition Findings: Nutrition Notes Start: 07/29/19 14:00 Freq: Status: Active Protocol: Document 08/09/19 11:24 KS (Rec: 08/09/19 12:24 KS [id number]) Co-Sign 08/09/19 11:24 LM Nutrition Notes Initial or Follow up Reassessment Current Diagnosis COPD,Sepsis,Hypertension, Hyperlipidemia Other Pertinent Diagnosis Hx CVA X 2, Nonverbal,UTI,Pneu , Acute encephalopathy, Suspicion of seizure Current Diet Pureed Diet Labs/Tests Reviewed Pertinent Medications Reviewed Height 5 ft 9 in Weight 80.9 kg [place] Body Weight (kg) 72.72 BMI 26.3 Weight change and time frame Wt loss noted. Subjective/Other Information Pt reports eating 75% of meals . Pt also eating food from outside hospital. Pt reports drinking Ensure Clear BID. Pt reports good appetite and no N /V. Pt reports no difficulty with chewing or swallowing on pureed diet. Per PATIENT FINANCIAL SERVICES COORDINATOR pt can eat a Regular Diet. Percent of energy/protein needs met: 100%/100% Burn Absent Trauma Absent Minimum of two criteria No #1 Nutrition Diagnosis Inadequate oral intake As Evidenced by Signs and Symptoms Pt eating >75% of meals. Pt drinking Ensure Clear BID. Pt eating additional food from outside hospital. Diagnosis Progress(for reassessment Improved documentation) Is patient on ventilator? No Is Patient Ambulatory and/or Out of Bed No REE-(Gause-St. Jeor-confined to bed) [phone] Calculation Used for Recommendations Gause-St Jeor Additional Notes PRO: 81-97g (1-1.2g/kg/day) Fluid: 1mL/kcal Nutrition Intervention Change Diet Order: Change to Cardiac Diet Goal #1 Continue to meet at least 75% of energy/PRO needs via PO intakes. Anticipated Discharge Needs: Cardiac Diet Follow-Up By: 08/14/19 Additional Comments FU for PO intakes
--- NOTE | 2019-08-11 15:08 | Hem/Onc Progress Note ---
Assessment and Plan 1. h/o Unresponsiveness, history of fever. ID team following. 2. JAK2 mutation. The patient was on hydroxyurea, white cell count was low, Hydrea had been held. 3. History of chronic obstructive pulmonary disease. 4. History of hypertension. 5. History of hyperlipidemia. 6. History of cerebrovascular accident. 7. History of left renal cell cancer removal. 8. V/Q scan is negative for pulmonary embolism. 9. Lumbar puncture was ordered by ID. 10. I will follow the patient during inpatient stay. pt awake - but speech slurred follows command of moving legs and opening mouth as per old notes - pt had been with Dr Frankel He was admitted to [facility] in feb 2019 - with CVA 08/11 ID - Infective endocardititis pt was on hydrea for CMPD - this was held as WBC was low restarted hydrea at a lower frequency pt moves legs and arms PEG Present - but as per RN - he is eating WBC low now - will follow - Patient Problems (1) Myeloproliferative disease Current Visit: No Status: Acute Subjective Date of service: 08/11/19 Principal diagnosis: CMPD Interval history: no pain Objective - Exam Narrative Exam: Pain - n/a General appearance - awake - but slurred speech Performance status complete dependence Eyes - no icterus ENT - no bleeding LNs cervical not palpable Neck - no LN Respiratory Normal Breath sounds - CTA anteriorly CVS S1 S2 + Extremities no calf tenderness General GI Soft - PEG + Rectal deferred male - deferred Skin warm Musculoskeletal moving extremitites Neurologically awake - slurred speech - Constitutional Vitals: Last Vital Signs Temp 97.5 F L 08/11/19 07:48 Pulse 82 08/11/19 09:13 Resp 16 08/11/19 08:45 BP 143/83 08/11/19 07:48 Pulse Ox 100 08/11/19 08:45 Medications & Allergies - Medications Allergies/Adverse Reactions: Allergies No Known Allergies Allergy (Unverified 07/17/14 19:25) Home Medications: Home Medications Medication Instructions Recorded Confirmed Last Taken Type Metoprolol Tartrate 50 mg PO BID 03/05/19 07/29/19 07/28/19 History QUEtiapine 50 mg PO DAILY 03/05/19 07/29/19 Unknown History Aspirin 325 mg PO QDAY tablet 03/11/19 07/29/19 07/29/19 17:39 Rx AtorvaSTATin [Lipitor] 80 mg PO QHS tablet 03/11/19 07/29/19 Unknown Rx Lisinopril [Zestril TAB] 20 mg PO QDAY tablet 03/11/19 07/29/19 Unknown Rx traZODone [Desyrel] 50 mg PO QDAY PRN tablet 03/11/19 07/29/19 Unknown Rx Hydroxyurea [Hydrea] 500 mg PO TuThSa@1000 #30 capsule 08/05/19 Unknown Rx Active Medications: Generic Name Dose Route Start Last Admin Trade Name Freq PRN Reason Stop Dose Admin Acetaminophen 650 mg 07/29/19 05:29 Tylenol PO Q4H PRN Pain, Mild (1-3), fever 100.5> Acetaminophen/Hydrocodone Bitart 1 each 07/29/19 21:50 08/02/19 10:44 [place] 5/325 PO 1 each Q4H PRN Administration Pain, Moderate (4-6) Albuterol 2.5 mg 08/10/19 02:48 08/11/19 08:45 Proventil IH 2.5 mg Q4HRT PRN Administration Shortness Of Breath Lipase/Protease/Amylase 1 each 07/29/19 14:[address] 10,500 Unit FEEDTUBE PRN PRN For Clogged Feeding Tube Aspirin 325 mg 07/29/19 10:00 08/11/19 09:12 Aspirin PO 325 mg QDAY LESLIE Administration Atorvastatin Calcium 80 mg 07/29/19 22:00 08/10/19 21:26 Lipitor PO 80 mg QHS LESLIE Administration Bisacodyl 10 mg 07/29/19 05:29 Dulcolax [place] QDAY PRN Constipation Enoxaparin Sodium 40 mg 08/08/19 10:00 08/10/19 21:27 Lovenox SUB-Q 40 mg QDAY@2200 LESLIE Administration Hydralazine HCl 10 mg 08/01/19 05:00 08/10/19 21:27 Apresoline IV 10 mg Q4HR PRN Administration Hypertension Hydroxyurea 500 mg 08/03/19 15:00 08/10/19 10:41 Hydrea PO 500 mg TuThSa@1000 LESLIE Administration Sodium Chloride 1,000 mls @ 125 mls/hr 07/29/19 13:00 07/31/19 05:11 Nacl 0.9% 1000 Ml IV 125 mls/hr DIRECT LESLIE Administration Ceftriaxone Sodium 2 gm in 100 mls @ 200 mls/hr 08/02/19 15:30 08/11/19 03:03 Rocephin/Ns 2 Gm/100 Ml IV 09/10/19 23:59 200 mls/hr Q12H LESLIE Administration Protocol Ampicillin Sodium 2 gm in 100 mls @ 100 mls/hr 08/05/19 10:00 08/11/19 09:13 Ampicillin/Ns 2 Gm/100 Ml IV 09/10/19 23:59 100 mls/hr Q4H LESLIE Administration Lisinopril 20 mg 07/29/19 10:00 08/11/19 09:12 Zestril PO 20 mg QDAY LESLIE Administration Lorazepam 1 mg 07/29/19 06:42 08/11/19 09:17 Ativan IV 1 mg Q4H PRN Administration Seizures Magnesium Hydroxide 30 ml 07/29/19 05:29 Milk Of Magnesia PO Q4H PRN Constipation Metoprolol Tartrate 50 mg 07/29/19 10:00 08/11/19 09:13 Lopressor PO 50 mg BID LESLIE Administration Ondansetron HCl 4 mg 07/29/19 05:29 08/10/19 10:49 Zofran IV 4 mg Q6H PRN Administration Nausea And Vomiting Simple Syrup 15 ml 07/29/19 14:30 Simple Syrup FEEDTUBE PRN PRN Hypoglycemia Simple Syrup 30 ml 07/29/19 14:30 Simple Syrup FEEDTUBE PRN PRN Hypoglycemia Sodium Bicarbonate 325 mg 07/29/19 14:30 Sodium Bicarbonate FEEDTUBE PRN PRN For Clogged Feeding Tube Sodium Chloride 10 ml 07/29/19 05:29 08/10/19 21:51 Sodium Chloride Flush Syringe 10 Ml IV 10 ml PRN PRN Administration LINE FLUSH
--- NOTE | 2019-08-11 17:10 | Progress Note ---
Assessment and Plan - Patient Problems (1) Endocarditis Current Visit: Yes Status: Acute Plan to address problem: Patient was admitted with fever and enterococcal sepsis, echocardiogram showed acute mitral valve endocarditis. There is moderate mitral regurgitation, and mild to moderate aortic regurgitation. The aortic regurgitation is chronic and was seen on prior echocardiogram 6 months ago. Continue intravenous antibiotic regimen. Subjective Date of service: 08/11/19 Principal diagnosis: CMPD Interval history: Patient is comfortable, no acute distress, looks and feels better. Objective Vital Signs Temp Pulse Pulse Resp Resp BP BP 08/11/19 16:13 97.5 F L 58 L 18 188/99 08/11/19 09:13 82 08/11/19 09:12 82 08/11/19 08:45 84 16 08/11/19 07:48 97.5 F L 18 143/83 08/11/19 00:31 97.8 F 72 20 173/96 08/10/19 21:52 98.2 F 65 172/85 08/10/19 21:27 65 172/85 08/10/19 20:15 76 20 08/10/19 17:59 70 20 147/86 Pulse Ox 08/11/19 16:13 80 L 08/11/19 09:13 08/11/19 09:12 08/11/19 08:45 100 08/11/19 07:48 08/11/19 00:31 100 08/10/19 21:52 96 08/10/19 21:27 08/10/19 20:15 96 08/10/19 17:59 97 - Physical Examination General: No Apparent Distress HEENT: Positive: PERRL Neck: Positive: trachea midline Cardiac: Positive: Reg Rate and Rhythm Lungs: Positive: Decreased Breath Sounds Neuro: Positive: Weakness Abdomen: Positive: Active Bowel Sounds Skin: Positive: Clear Extremities: Absent: edema
[2019-08-11] MEDS: ENOXAPARIN SUB-Q SCH (21:24)
[2019-08-11] MEDS: APRESOLINE IV PRN (21:32)
[2019-08-12] MEDS: AMPICILLIN/NS 2 GM/100 ML 2 GM/100 ML BAG IV SCH ×6 (02:30→21:38)
[2019-08-12] MEDS: ROCEPHIN/NS 2 GM/100 ML 2 GM/100 ML BAG IV SCH ×2 (02:31→16:34)
--- NOTE | 2019-08-12 07:20 | Hem/Onc Progress Note ---
Assessment and Plan 1. h/o Unresponsiveness, history of fever. ID team following. 2. JAK2 mutation. The patient was on hydroxyurea, white cell count was low, Hydrea had been held. 3. History of chronic obstructive pulmonary disease. 4. History of hypertension. 5. History of hyperlipidemia. 6. History of cerebrovascular accident. 7. History of left renal cell cancer removal. 8. V/Q scan is negative for pulmonary embolism. 9. Lumbar puncture was ordered by ID. 10. I will follow the patient during inpatient stay. pt awake - but speech slurred follows command of moving legs and opening mouth as per old notes - pt had been with Dr Frankel He was admitted to [facility] in feb 2019 - with CVA 08/12 ID - Infective endocardititis pt was on hydrea for CMPD - this was held as WBC was low restarted hydrea at a lower frequency pt moves legs and arms PEG Present - but as per RN - he is eating WBC low now - will follow - Patient Problems (1) Myeloproliferative disease Current Visit: No Status: Acute Subjective Date of service: 08/12/19 Principal diagnosis: CMPD Interval history: restrain + Objective - Exam Narrative Exam: Pain - n/a General appearance - awake - but slurred speech Performance status complete dependence Eyes - no icterus ENT - no bleeding LNs cervical not palpable Neck - no LN Respiratory Normal Breath sounds - CTA anteriorly CVS S1 S2 + Extremities no calf tenderness General GI Soft - PEG + Rectal deferred male - deferred Skin warm Musculoskeletal moving extremitites Neurologically awake - slurred speech - Constitutional Vitals: Last Vital Signs Temp 98.3 F 08/12/19 03:43 Pulse 86 08/12/19 03:43 Resp 16 08/12/19 03:44 BP 151/93 08/12/19 03:43 Pulse Ox 97 08/12/19 03:44 Medications & Allergies - Medications Allergies/Adverse Reactions: Allergies No Known Allergies Allergy (Unverified 07/17/14 19:25) Home Medications: Home Medications Medication Instructions Recorded Confirmed Last Taken Type Metoprolol Tartrate 50 mg PO BID 03/05/19 07/29/19 07/28/19 History QUEtiapine 50 mg PO DAILY 03/05/19 07/29/19 Unknown History Aspirin 325 mg PO QDAY tablet 03/11/19 07/29/19 07/29/19 17:39 Rx AtorvaSTATin [Lipitor] 80 mg PO QHS tablet 03/11/19 07/29/19 Unknown Rx Lisinopril [Zestril TAB] 20 mg PO QDAY tablet 03/11/19 07/29/19 Unknown Rx traZODone [Desyrel] 50 mg PO QDAY PRN tablet 03/11/19 07/29/19 Unknown Rx Hydroxyurea [Hydrea] 500 mg PO TuThSa@1000 #30 capsule 08/05/19 Unknown Rx Active Medications: Generic Name Dose Route Start Last Admin Trade Name Freq PRN Reason Stop Dose Admin Acetaminophen 650 mg 07/29/19 05:29 Tylenol PO Q4H PRN Pain, Mild (1-3), fever 100.5> Acetaminophen/Hydrocodone Bitart 1 each 07/29/19 21:50 08/02/19 10:44 [place] 5/325 PO 1 each Q4H PRN Administration Pain, Moderate (4-6) Albuterol 2.5 mg 08/10/19 02:48 08/11/19 17:54 Proventil IH 2.5 mg Q4HRT PRN Administration Shortness Of Breath Lipase/Protease/Amylase 1 each 07/29/19 14:[address] 10,500 Unit FEEDTUBE PRN PRN For Clogged Feeding Tube Aspirin 325 mg 07/29/19 10:00 08/11/19 09:12 Aspirin PO 325 mg QDAY LESLIE Administration Atorvastatin Calcium 80 mg 07/29/19 22:00 08/11/19 21:24 Lipitor PO 80 mg QHS LESLIE Administration Bisacodyl 10 mg 07/29/19 05:29 Dulcolax ID QDAY PRN Constipation Enoxaparin Sodium 40 mg 08/08/19 10:00 08/11/19 21:24 Lovenox SUB-Q 40 mg QDAY@2200 LESLIE Administration Hydralazine HCl 10 mg 08/01/19 05:00 08/11/19 21:32 Apresoline IV 10 mg Q4HR PRN Administration Hypertension Hydroxyurea 500 mg 08/03/19 15:00 08/10/19 10:41 Hydrea PO 500 mg TuThSa@1000 LESLIE Administration Sodium Chloride 1,000 mls @ 125 mls/hr 07/29/19 13:00 07/31/19 05:11 Nacl 0.9% 1000 Ml IV 125 mls/hr DIRECT LESLIE Administration Ceftriaxone Sodium 2 gm in 100 mls @ 200 mls/hr 08/02/19 15:30 08/12/19 02:31 Rocephin/Ns 2 Gm/100 Ml IV 09/10/19 23:59 200 mls/hr Q12H LESLIE Administration Protocol Ampicillin Sodium 2 gm in 100 mls @ 100 mls/hr 08/05/19 10:00 08/12/19 06:00 Ampicillin/Ns 2 Gm/100 Ml IV 09/10/19 23:59 100 mls/hr Q4H LESLIE Administration Lisinopril 20 mg 07/29/19 10:00 08/11/19 09:12 Zestril PO 20 mg QDAY LESLIE Administration Lorazepam 1 mg 07/29/19 06:42 08/11/19 21:24 Ativan IV 1 mg Q4H PRN Administration Seizures Magnesium Hydroxide 30 ml 07/29/19 05:29 Milk Of Magnesia PO Q4H PRN Constipation Metoprolol Tartrate 50 mg 07/29/19 10:00 08/11/19 21:24 Lopressor PO 50 mg BID LESLIE Administration Ondansetron HCl 4 mg 07/29/19 05:29 08/10/19 10:49 Zofran IV 4 mg Q6H PRN Administration Nausea And Vomiting Simple Syrup 15 ml 07/29/19 14:30 Simple Syrup FEEDTUBE PRN PRN Hypoglycemia Simple Syrup 30 ml 07/29/19 14:30 Simple Syrup FEEDTUBE PRN PRN Hypoglycemia Sodium Bicarbonate 325 mg 07/29/19 14:30 Sodium Bicarbonate FEEDTUBE PRN PRN For Clogged Feeding Tube Sodium Chloride 10 ml 07/29/19 05:29 08/10/19 21:51 Sodium Chloride Flush Syringe 10 Ml IV 10 ml PRN PRN Administration LINE FLUSH
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
[2019-08-12] MEDS: ZESTRIL PO SCH (12:18)
[2019-08-12] MEDS: ASPIRIN PO SCH (12:18)
[2019-08-12] MEDS: METOPROLOL PO SCH ×2 (12:19→21:31)
--- NOTE | 2019-08-12 13:12 | Consultation ---
History of Present Illness - Reason for Consult Consult date: 08/12/19 Reason for consult: Mental Health Evaluation Requesting physician: JERILYN MITCHELL - Chief Complaint Chief complaint: "The patient is nonverbal" - History of Present Psychiatric Illness 53 y.o. AA male who presented to the ER for AMS. This patient has a hx of CVA x 2. Psychiatry was consulted to see the patient for behavioral disturbances. Today the patient was calm and cooperative, but nonverbal during the assessment. He followed command and attempted to talk when asked questions. I communicated with the patient by asking him yes and no questions, he would nod to answer yes or no. He answered yes to being upset and aggravated this past weekend before he was placed in restraints. He nodded to yes for wanting to be discharged so he can go home. He denies a past mental health dx when asked. Per the staff and the notes, no behavioral disturbances overnight. He denies SI/HI's. Medications and Allergies Allergies Allergy/AdvReac Type Severity Reaction Status Date / Time No Known Allergies Allergy Unverified 07/17/14 19:25 Home Medications Medication Instructions Recorded Confirmed Last Taken Type Metoprolol Tartrate 50 mg PO BID 03/05/19 07/29/19 07/28/19 History QUEtiapine 50 mg PO DAILY 03/05/19 07/29/19 Unknown History Aspirin 325 mg PO QDAY tablet 03/11/19 07/29/19 07/29/19 17:39 Rx AtorvaSTATin [Lipitor] 80 mg PO QHS tablet 03/11/19 07/29/19 Unknown Rx Lisinopril [Zestril TAB] 20 mg PO QDAY tablet 03/11/19 07/29/19 Unknown Rx traZODone [Desyrel] 50 mg PO QDAY PRN tablet 03/11/19 07/29/19 Unknown Rx Hydroxyurea [Hydrea] 500 mg PO TuThSa@1000 #30 capsule 08/05/19 Unknown Rx Active Meds: Active Medications Acetaminophen (Tylenol) 650 mg PO Q4H PRN PRN Reason: Pain, Mild (1-3), fever 100.5> Acetaminophen/Hydrocodone Bitart ([place] 5/325) 1 each PO Q4H PRN PRN Reason: Pain, Moderate (4-6) Last Admin: 08/02/19 10:44 Dose: 1 each Documented by: Albuterol (Proventil) 2.5 mg IH Q4HRT PRN PRN Reason: Shortness Of Breath Last Admin: 08/11/19 17:54 Dose: 2.5 mg Documented by: Lipase/Protease/Amylase (Ana Rosa Joseph 10,500 Unit) 1 each FEEDTUBE PRN PRN PRN Reason: For Clogged Feeding Tube Aspirin (Aspirin) 325 mg PO QDAY [facility] Last Admin: 08/12/19 12:18 Dose: 325 mg Documented by: Atorvastatin Calcium (Lipitor) 80 mg PO QHS [facility] Last Admin: 08/11/19 21:24 Dose: 80 mg Documented by: Bisacodyl (Dulcolax) 10 mg [place] QDAY PRN PRN Reason: Constipation Enoxaparin Sodium (Lovenox) 40 mg SUB-Q QDAY@2200 [facility] Last Admin: 08/11/19 21:24 Dose: 40 mg Documented by: Hydralazine HCl (Apresoline) 10 mg IV Q4HR PRN PRN Reason: Hypertension Last Admin: 08/11/19 21:32 Dose: 10 mg Documented by: Hydroxyurea (Hydrea) 500 mg PO TuThSa@1000 [facility] Last Admin: 08/10/19 10:41 Dose: 500 mg Documented by: Ceftriaxone Sodium (Rocephin/Ns 2 Gm/100 Ml) 2 gm in 100 mls @ 200 mls/hr IV Q12H [facility]; Protocol Stop: 09/10/19 23:59 Last Admin: 08/12/19 02:31 Dose: 200 mls/hr Documented by: Ampicillin Sodium (Ampicillin/Ns 2 Gm/100 Ml) 2 gm in 100 mls @ 100 mls/hr IV Q4H [facility] Stop: 09/10/19 23:59 Last Admin: 08/12/19 12:05 Dose: 100 mls/hr Documented by: Lisinopril (Zestril) 20 mg PO QDAY [facility] Last Admin: 08/12/19 12:18 Dose: 20 mg Documented by: Lorazepam (Ativan) 1 mg IV Q4H PRN PRN Reason: Seizures Last Admin: 08/11/19 21:24 Dose: 1 mg Documented by: Magnesium Hydroxide (Milk Of Magnesia) 30 ml PO Q4H PRN PRN Reason: Constipation Metoprolol Tartrate (Lopressor) 50 mg PO BID LESLIE Last Admin: 08/12/19 12:19 Dose: 50 mg Documented by: Ondansetron HCl (Zofran) 4 mg IV Q6H PRN PRN Reason: Nausea And Vomiting Last Admin: 08/10/19 10:49 Dose: 4 mg Documented by: Simple Syrup (Simple Syrup) 15 ml FEEDTUBE PRN PRN PRN Reason: Hypoglycemia Simple Syrup (Simple Syrup) 30 ml FEEDTUBE PRN PRN PRN Reason: Hypoglycemia Sodium Bicarbonate (Sodium Bicarbonate) 325 mg FEEDTUBE PRN PRN PRN Reason: For Clogged Feeding Tube Sodium Chloride (Sodium Chloride Flush Syringe 10 Ml) 10 ml IV PRN PRN PRN Reason: LINE FLUSH Last Admin: 08/10/19 21:51 Dose: 10 ml Documented by: Past psychiatric history - Past Medical History Past Medical History: stroke Past Surgical History: Other (Unable to obtain ) - past Psychiatric treatment and history psychiatric treatment history: The patient denies a psy hx and fam psy hx by nodding no to the questions. - Social History Social history: lives with family Mental Status Exam - Vital signs Last Vital Signs Temp 97.9 F 08/12/19 07:51 Pulse 80 08/12/19 12:18 Resp 20 08/12/19 07:51 BP 168/99 08/12/19 07:51 Pulse Ox 98 08/12/19 07:51 - Exam Narrative exam: MSE: Appearance: calm, cooperative Behavior: regular eye contact Speech: aphasia Mood: unable to assess Affect: flat Thought Process: unable to assess Thought Content: denies SI/HI's Motor Activity: sitting up in chair Cognition: A/O x3 Insight: fair Judgment: unable to assess Results Result Diagrams: 08/13/19 04:39 08/13/19 04:39 All other labs normal. Assessment and Plan Assessment and plan: Impression: Today the patient was calm and cooperative during the assessment. The patient isn't in restraints. Recommendation/Plan: Obtain collateral information from his . Will follow up with the patient in 24 hours. Dispo: The patient is pending rehab placement once discharged Staffed with Dr Khoa Corrigan.
--- NOTE | 2019-08-12 14:29 | Progress Note ---
Assessment and Plan - Patient Problems (1) Endocarditis Current Visit: Yes Status: Acute Plan to address problem: Patient was admitted with fever and enterococcal sepsis, echocardiogram showed acute mitral valve endocarditis. There is moderate mitral regurgitation, and mild to moderate aortic regurgitation. The aortic regurgitation is chronic and was seen on prior echocardiogram 6 months ago. Continue intravenous antibiotic regimen. Subjective Date of service: 08/12/19 Principal diagnosis: CMPD Interval history: Patient is comfortable, no acute distress, looks and feels better. Objective Vital Signs Temp Pulse Pulse Resp Resp BP Pulse Ox 08/12/19 12:18 80 08/12/19 07:51 97.9 F 87 20 168/99 98 08/12/19 03:44 16 97 08/12/19 03:43 98.3 F 86 16 151/93 97 08/12/19 00:02 18 97 08/12/19 00:00 98.8 F 86 18 139/75 96 08/11/19 21:32 103 H 175/83 08/11/19 21:24 103 H 175/83 08/11/19 20:33 100 08/11/19 19:31 98 08/11/19 19:29 98.6 F 103 H 18 175/83 97 08/11/19 17:54 85 18 08/11/19 16:13 97.5 F L 58 L 18 188/99 80 L - Physical Examination General: No Apparent Distress HEENT: Positive: PERRL Neck: Positive: trachea midline Cardiac: Positive: Reg Rate and Rhythm Lungs: Positive: Decreased Breath Sounds Neuro: Positive: Weakness Abdomen: Positive: Active Bowel Sounds Skin: Positive: Clear Extremities: Absent: edema
[2019-08-12] MEDS: APRESOLINE IV PRN (21:31)
[2019-08-12] MEDS: ENOXAPARIN SUB-Q SCH (21:32)
[2019-08-13] MEDS: AMPICILLIN/NS 2 GM/100 ML 2 GM/100 ML BAG IV SCH ×6 (02:00→21:15)
[2019-08-13] MEDS: ROCEPHIN/NS 2 GM/100 ML 2 GM/100 ML BAG IV SCH ×2 (02:31→15:40)
[2019-08-13 05:00] LABS: Basophils # (Auto) 0.1 K/mm3 (0.0-0.1); Basophils % (Auto) 1.8 % (0.0-1.8); Eosinophils # (Auto) 0.3 K/mm3 (0.0-0.4); Eosinophils % (Auto) 6.4 % (0.0-4.3); Hematocrit 31.7 % (35.5-45.6); Hemoglobin 10.5 gm/dl (11.8-15.2); Lymphocytes # (Auto) 1.6 K/mm3 (1.2-5.4); Lymphocytes % (Auto) 39.5 % (13.4-35.0); Mean Corpuscular HGB Conc 33 % (32-34); Mean Corpuscular Volume 109 fl (84-94); Monocytes # (Auto) 0.5 K/mm3 (0.0-0.8); Monocytes % (Auto) 11.7 % (0.0-7.3); Platelet Count 352 K/mm3 (140-440); Red Blood Count 2.92 M/mm3 (3.65-5.03); Red Cell Distribution Width 20.3 % (13.2-15.2)
[2019-08-13 05:23] LABS: Alanine Aminotransferase 11 units/L (7-56); Albumin 3.6 g/dL (3.9-5); BUN/Creatinine Ratio 15; Blood Urea Nitrogen 12 mg/dL (9-20); Calcium 8.9 mg/dL (8.4-10.2); Hemolysis Index 1
--- NOTE | 2019-08-13 07:03 | Hem/Onc Progress Note ---
Assessment and Plan 1. h/o Unresponsiveness, history of fever. ID team following. 2. JAK2 mutation. The patient was on hydroxyurea, white cell count was low, Hydrea had been held. 3. History of chronic obstructive pulmonary disease. 4. History of hypertension. 5. History of hyperlipidemia. 6. History of cerebrovascular accident. 7. History of left renal cell cancer removal. 8. V/Q scan is negative for pulmonary embolism. 9. Lumbar puncture done 10. I will follow the patient during inpatient stay. pt awake - but speech slurred follows command of moving legs and opening mouth as per old notes - pt had been with Dr Frankel He was admitted to [facility] in feb 2019 - with CVA 08/13 ID - Infective endocardititis pt was on hydrea for CMPD - this was held as WBC was low restarted hydrea at a lower frequency pt moves legs and arms PEG Present - but as per RN - he is eating WBC fluctuating as per the person watching him - pt eats - sits on the chair as he was walking away from the hospital - he is being watched - Patient Problems (1) Myeloproliferative disease Current Visit: No Status: Acute Subjective Date of service: 08/13/19 Principal diagnosis: CMPD Interval history: slurred speech Objective - Exam Narrative Exam: Pain - n/a General appearance - awake - but slurred speech Performance status complete dependence Eyes - no icterus ENT - no bleeding LNs cervical not palpable Neck - no LN Respiratory Normal Breath sounds - CTA anteriorly CVS S1 S2 + Extremities no calf tenderness General GI Soft - PEG + Rectal deferred male - deferred Skin warm Musculoskeletal moving extremitites Neurologically awake - slurred speech - Constitutional Vitals: Last Vital Signs Temp 98.3 F 08/13/19 04:16 Pulse 102 H 08/13/19 04:16 Resp 16 08/13/19 04:16 BP 211/97 08/13/19 04:16 Pulse Ox 90 08/13/19 04:16 - Labs Lab Results: Laboratory Results - last 24 hr 08/13/19 08/13/19 04:39 04:39 WBC 4.1 L RBC 2.92 L Hgb 10.5 L Hct 31.7 L MCV 109 H MCH 36 H MCHC 33 RDW 20.3 H Plt Count 352 Lymph % (Auto) 39.5 H [place] % (Auto) 11.7 H Eos % (Auto) 6.4 H Baso % (Auto) 1.8 Lymph # 1.6 [place] # 0.5 Eos # 0.3 Baso # 0.1 Seg Neutrophils % 40.6 Seg Neutrophils # 1.7 L Sodium 140 Potassium 3.9 Chloride 101.9 Carbon Dioxide 27 Anion Gap 15 BUN 12 Creatinine 0.8 Estimated GFR > 60 BUN/Creatinine Ratio 15 Glucose 108 H Calcium 8.9 Total Bilirubin 0.30 AST 16 ALT 11 Alkaline Phosphatase 70 Total Protein 8.4 H Albumin 3.6 L Albumin/Globulin Ratio 0.8 Medications & Allergies - Medications Allergies/Adverse Reactions: Allergies No Known Allergies Allergy (Unverified 07/17/14 19:25) Home Medications: Home Medications Medication Instructions Recorded Confirmed Last Taken Type Metoprolol Tartrate 50 mg PO BID 03/05/19 07/29/19 07/28/19 History QUEtiapine 50 mg PO DAILY 03/05/19 07/29/19 Unknown History Aspirin 325 mg PO QDAY tablet 03/11/19 07/29/19 07/29/19 17:39 Rx AtorvaSTATin [Lipitor] 80 mg PO QHS tablet 03/11/19 07/29/19 Unknown Rx Lisinopril [Zestril TAB] 20 mg PO QDAY tablet 03/11/19 07/29/19 Unknown Rx traZODone [Desyrel] 50 mg PO QDAY PRN tablet 03/11/19 07/29/19 Unknown Rx Hydroxyurea [Hydrea] 500 mg PO TuThSa@1000 #30 capsule 08/05/19 Unknown Rx Active Medications: Generic Name Dose Route Start Last Admin Trade Name Humbertoq PRN Reason Stop Dose Admin Acetaminophen 650 mg 07/29/19 05:29 Tylenol PO Q4H PRN Pain, Mild (1-3), fever 100.5> Acetaminophen/Hydrocodone Bitart 1 each 07/29/19 21:50 08/02/19 10:44 [place] 5/325 PO 1 each Q4H PRN Administration Pain, Moderate (4-6) Albuterol 2.5 mg 08/10/19 02:48 08/11/19 17:54 Proventil IH 2.5 mg Q4HRT PRN Administration Shortness Of Breath Lipase/Protease/Amylase 1 each 07/29/19 14:30 [place] 10,500 Unit FEEDTUBE PRN PRN For Clogged Feeding Tube Aspirin 325 mg 07/29/19 10:00 08/12/19 12:18 Aspirin PO 325 mg QDAY LESLIE Administration Atorvastatin Calcium 80 mg 07/29/19 22:00 08/12/19 21:32 Lipitor PO 80 mg QHS LESLIE Administration Bisacodyl 10 mg 07/29/19 05:29 Dulcolax [place] QDAY PRN Constipation Enoxaparin Sodium 40 mg 08/08/19 10:00 08/12/19 21:32 Lovenox SUB-Q 40 mg QDAY@2200 LESLIE Administration Hydralazine HCl 10 mg 08/01/19 05:00 08/12/19 21:31 Apresoline IV 10 mg Q4HR PRN Administration Hypertension Hydroxyurea 500 mg 08/03/19 15:00 08/10/19 10:41 Hydrea PO 500 mg TuThSa@1000 LESLIE Administration Ceftriaxone Sodium 2 gm in 100 mls @ 200 mls/hr 08/02/19 15:30 08/13/19 02:31 Rocephin/Ns 2 Gm/100 Ml IV 09/10/19 23:59 200 mls/hr Q12H LESLIE Administration Protocol Ampicillin Sodium 2 gm in 100 mls @ 100 mls/hr 08/05/19 10:00 08/13/19 06:10 Ampicillin/Ns 2 Gm/100 Ml IV 09/10/19 23:59 100 mls/hr Q4H LESLIE Administration Lisinopril 20 mg 07/29/19 10:00 08/12/19 12:18 Zestril PO 20 mg QDAY LESLIE Administration Lorazepam 1 mg 07/29/19 06:42 08/11/19 21:24 Ativan IV 1 mg Q4H PRN Administration Seizures Magnesium Hydroxide 30 ml 07/29/19 05:29 Milk Of Magnesia PO Q4H PRN Constipation Metoprolol Tartrate 50 mg 07/29/19 10:00 08/12/19 21:31 Lopressor PO 50 mg BID LESLIE Administration Ondansetron HCl 4 mg 07/29/19 05:29 08/10/19 10:49 Zofran IV 4 mg Q6H PRN Administration Nausea And Vomiting Simple Syrup 15 ml 07/29/19 14:30 Simple Syrup FEEDTUBE PRN PRN Hypoglycemia Simple Syrup 30 ml 07/29/19 14:30 Simple Syrup FEEDTUBE PRN PRN Hypoglycemia Sodium Bicarbonate 325 mg 07/29/19 14:30 Sodium Bicarbonate FEEDTUBE PRN PRN For Clogged Feeding Tube Sodium Chloride 10 ml 07/29/19 05:29 08/10/19 21:51 Sodium Chloride Flush Syringe 10 Ml IV 10 ml PRN PRN Administration LINE FLUSH
[2019-08-13] MEDS: ASPIRIN PO SCH (09:31)
[2019-08-13] MEDS: METOPROLOL PO SCH ×2 (09:32→21:15)
[2019-08-13] MEDS: ZESTRIL PO SCH (09:54)
--- NOTE | 2019-08-13 10:13 | Progress Note ---
Assessment and Plan Enterococcal sepsis Acute mitral valve endocarditis Hx of COPD Hypertension Prior CVA Elevation of troponin ECG is sinus tachycardia, no acute ischemic changes. An repeat echocardiogram this admission revealed: 1. Mitral valve vegetation. 2. Moderate MR. 3. Normal LV function EF 55-60%. 4. Mild-moderate AR. Recommend: Continue intravenous antibiotic therapy for acute mitral valve endocarditis, after which we will repeat the echocardiogram with Doppler. Subjective Date of service: 08/13/19 Principal diagnosis: CMPD Interval history: Patient is resting in bed comfortably. Objective Vital Signs Temp Pulse Resp BP BP Pulse Ox 08/13/19 09:54 80 08/13/19 09:32 80 08/13/19 07:35 98.6 F 78 18 122/103 100 08/13/19 04:16 98.3 F 102 H 16 211/97 90 08/12/19 23:53 97.7 F 80 18 156/92 96 08/12/19 21:31 87 183/93 08/12/19 20:03 97.9 F 87 20 183/93 100 08/12/19 19:53 97 08/12/19 12:18 80 - Physical Examination General: No Apparent Distress HEENT: Positive: PERRL Neck: Positive: trachea midline Cardiac: Positive: Reg Rate and Rhythm Lungs: Positive: Decreased Breath Sounds Neuro: Positive: Weakness Abdomen: Positive: Active Bowel Sounds Extremities: Absent: edema - Labs and Meds Cardiac Enzymes 08/13/19 Range/Units 04:39 AST 16 (5-40) units/L CBC 08/13/19 Range/Units 04:39 WBC 4.1 L (4.5-11.0) K/mm3 RBC 2.92 L (3.65-5.03) M/mm3 Hgb 10.5 L (11.8-15.2) gm/dl Hct 31.7 L (35.5-45.6) % Plt Count 352 (140-440) K/mm3 Lymph # 1.6 (1.2-5.4) K/mm3 [place] # 0.5 (0.0-0.8) K/mm3 Eos # 0.3 (0.0-0.4) K/mm3 Baso # 0.1 (0.0-0.1) K/mm3 Comprehensive Metabolic Panel 08/13/19 Range/Units 04:39 Sodium 140 (137-145) mmol/L Potassium 3.9 (3.6-5.0) mmol/L Chloride 101.9 (98-107) mmol/L Carbon Dioxide 27 (22-30) mmol/L BUN 12 (9-20) mg/dL Creatinine 0.8 (0.8-1.5) mg/dL Glucose 108 H (75-100) mg/dL Calcium 8.9 (8.4-10.2) mg/dL AST 16 (5-40) units/L ALT 11 (7-56) units/L Alkaline Phosphatase 70 (35-129) units/L Total Protein 8.4 H (6.3-8.2) g/dL Albumin 3.6 L (3.9-5) g/dL
--- NOTE | 2019-08-13 12:53 | Progress Note ---
Subjective - Reason for Consult Consult date: 08/13/19 Reason for consult: Psychiatry Follow-up - Chief Complaint Chief complaint: "The patient is nonverbal" 53 y.o. AA male who presented to the ER for AMS. This patient has a hx of CVA x 2. Psychiatry was consulted to see the patient for behavioral disturbances. Today the patient was calm and cooperative, but nonverbal during the assessment. Per collateral information from the patient's Mrs Luz Maria Babcock at [phone]. she stated that her was upset about not having a regular diet at the time, so he tried to leave the hospital. She denies that her has a hx of mental health. The patient nodded to "no" when asked if he was suicidal/homicidal. No indications of psychosis by the patient. Per the sitter, no behavioral disturbances by the patient. Mental Status Exam - Vital signs Last Vital Signs Temp 98.6 F 08/13/19 07:35 Pulse 80 08/13/19 09:54 Resp 18 08/13/19 07:35 BP 122/103 08/13/19 07:35 Pulse Ox 100 08/13/19 07:35 - Exam Narrative exam: MSE: Appearance: calm, cooperative Behavior: regular eye contact Speech: aphasia Mood: unable to assess Affect: flat Thought Process: unable to assess Thought Content: denies SI/HI's Motor Activity: sitting up in bed Cognition: A/O x3 Insight: fair Judgment: unable to assess Assessment and Plan Impression: No overt psychosis by the patient. Today the patient was calm and cooperative during the assessment. The patient isn't in restraints. Recommendation/Plan: The patient can follow up with [facility] for outpatient psy/therapy services if indicated once discharged. Psy sign off. Dispo: The patient is pending rehab placement once discharged Staffed with Dr Khoa Corrigan.
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
[2019-08-13] MEDS: HYDROXYUREA PO SCH (15:43)
[2019-08-13] MEDS: ENOXAPARIN SUB-Q SCH (21:16)
[2019-08-13] MEDS: SODIUM CHLORIDE FLUSH SYRINGE 10 ML IV PRN (21:16)
[2019-08-13] MEDS: APRESOLINE IV PRN (21:17)
[2019-08-14] MEDS: AMPICILLIN/NS 2 GM/100 ML 2 GM/100 ML BAG IV SCH ×6 (02:48→22:10)
[2019-08-14] MEDS: ROCEPHIN/NS 2 GM/100 ML 2 GM/100 ML BAG IV SCH ×2 (02:59→17:11)
[2019-08-14] MEDS: SODIUM CHLORIDE FLUSH SYRINGE 10 ML IV PRN ×2 (03:00→06:06)
[2019-08-14] MEDS: ATIVAN IV PRN (06:27)
--- NOTE | 2019-08-14 07:43 | Hem/Onc Progress Note ---
Assessment and Plan 1. h/o Unresponsiveness, history of fever. ID team following. 2. JAK2 mutation. The patient was on hydroxyurea, white cell count was low, Hydrea had been held. 3. History of chronic obstructive pulmonary disease. 4. History of hypertension. 5. History of hyperlipidemia. 6. History of cerebrovascular accident. 7. History of left renal cell cancer removal. 8. V/Q scan is negative for pulmonary embolism. 9. Lumbar puncture done 10. I will follow the patient during inpatient stay. pt awake - but speech slurred follows command of moving legs and opening mouth as per old notes - pt had been with Dr Frankel He was admitted to [facility] in feb 2019 - with CVA 08/14 ID - Infective endocardititis pt was on hydrea for CMPD - this was held as WBC was low restarted hydrea at a lower frequency pt moves legs and arms PEG Present - but as per RN - he is eating WBC fluctuating as he was walking away from the hospital - he is being watched at night time pt was agitated and was restrained - Patient Problems (1) Myeloproliferative disease Current Visit: No Status: Acute Subjective Date of service: 08/14/19 Principal diagnosis: CMPD Interval history: was agitated at night - got PEG feeds Objective - Exam Narrative Exam: Pain - n/a General appearance - awake - but slurred speech Performance status complete dependence Eyes - no icterus ENT - no bleeding LNs cervical not palpable Neck - no LN Respiratory Normal Breath sounds - CTA anteriorly CVS S1 S2 + Extremities no calf tenderness General GI Soft - PEG + Rectal deferred male - deferred Skin warm Musculoskeletal moving extremitites Neurologically awake - slurred speech - Constitutional Vitals: Last Vital Signs Temp 98.8 F 08/14/19 04:45 Pulse 84 08/14/19 04:45 Resp 20 08/14/19 04:45 BP 147/76 08/14/19 04:45 Pulse Ox 96 08/14/19 04:45 Medications & Allergies - Medications Allergies/Adverse Reactions: Allergies No Known Allergies Allergy (Unverified 07/17/14 19:25) Home Medications: Home Medications Medication Instructions Recorded Confirmed Last Taken Type Metoprolol Tartrate 50 mg PO BID 03/05/19 07/29/19 07/28/19 History QUEtiapine 50 mg PO DAILY 03/05/19 07/29/19 Unknown History Aspirin 325 mg PO QDAY tablet 03/11/19 07/29/19 07/29/19 17:39 Rx AtorvaSTATin [Lipitor] 80 mg PO QHS tablet 03/11/19 07/29/19 Unknown Rx Lisinopril [Zestril TAB] 20 mg PO QDAY tablet 03/11/19 07/29/19 Unknown Rx traZODone [Desyrel] 50 mg PO QDAY PRN tablet 03/11/19 07/29/19 Unknown Rx Hydroxyurea [Hydrea] 500 mg PO TuThSa@1000 #30 capsule 08/05/19 Unknown Rx Active Medications: Generic Name Dose Route Start Last Admin Trade Name Freq PRN Reason Stop Dose Admin Acetaminophen 650 mg 07/29/19 05:29 Tylenol PO Q4H PRN Pain, Mild (1-3), fever 100.5> Acetaminophen/Hydrocodone Bitart 1 each 07/29/19 21:50 08/02/19 10:44 Draper 5/325 PO 1 each Q4H PRN Administration Pain, Moderate (4-6) Albuterol 2.5 mg 08/10/19 02:48 08/11/19 17:54 Proventil IH 2.5 mg Q4HRT PRN Administration Shortness Of Breath Lipase/Protease/Amylase 1 each 07/29/19 14:[address] 10,500 Unit FEEDTUBE PRN PRN For Clogged Feeding Tube Aspirin 325 mg 07/29/19 10:00 08/13/19 09:31 Aspirin PO 325 mg QDAY LESLIE Administration Atorvastatin Calcium 80 mg 07/29/19 22:00 08/13/19 21:16 Lipitor PO 80 mg QHS LESLIE Administration Bisacodyl 10 mg 07/29/19 05:29 Dulcolax OR QDAY PRN Constipation Enoxaparin Sodium 40 mg 08/08/19 10:00 08/13/19 21:16 Lovenox SUB-Q 40 mg QDAY@2200 LESLIE Administration Hydralazine HCl 10 mg 08/01/19 05:00 08/13/19 21:17 Apresoline IV 10 mg Q4HR PRN Administration Hypertension Hydroxyurea 500 mg 08/03/19 15:00 08/13/19 15:43 Hydrea PO 500 mg TuThSa@1000 LESLIE Administration Ceftriaxone Sodium 2 gm in 100 mls @ 200 mls/hr 08/02/19 15:30 08/14/19 02:59 Rocephin/Ns 2 Gm/100 Ml IV 09/10/19 23:59 200 mls/hr Q12H LESLIE Administration Protocol Ampicillin Sodium 2 gm in 100 mls @ 100 mls/hr 08/05/19 10:00 08/14/19 06:05 Ampicillin/Ns 2 Gm/100 Ml IV 09/10/19 23:59 100 mls/hr Q4H LESLIE Administration Lisinopril 30 mg 08/14/19 10:00 Zestril PO QDAY LESLIE Lorazepam 1 mg 07/29/19 06:42 08/14/19 06:27 Ativan IV 1 mg Q4H PRN Administration Seizures Magnesium Hydroxide 30 ml 07/29/19 05:29 Milk Of Magnesia PO Q4H PRN Constipation Metoprolol Tartrate 50 mg 07/29/19 10:00 08/13/19 21:15 Lopressor PO 50 mg BID LESLIE Administration Ondansetron HCl 4 mg 07/29/19 05:29 08/10/19 10:49 Zofran IV 4 mg Q6H PRN Administration Nausea And Vomiting Simple Syrup 15 ml 07/29/19 14:30 Simple Syrup FEEDTUBE PRN PRN Hypoglycemia Simple Syrup 30 ml 07/29/19 14:30 Simple Syrup FEEDTUBE PRN PRN Hypoglycemia Sodium Bicarbonate 325 mg 07/29/19 14:30 Sodium Bicarbonate FEEDTUBE PRN PRN For Clogged Feeding Tube Sodium Chloride 10 ml 07/29/19 05:29 08/14/19 06:06 Sodium Chloride Flush Syringe 10 Ml IV 10 ml PRN PRN Administration LINE FLUSH
[2019-08-14] MEDS: METOPROLOL PO SCH ×2 (09:22→21:29)
[2019-08-14] MEDS: ASPIRIN PO SCH (09:22)
[2019-08-14] MEDS: ZESTRIL PO SCH (09:23)
[2019-08-14] MEDS ORDERED: SIMPLE SYRUP FEEDTUBE PRN ×2 (10:45)
[2019-08-14] MEDS ORDERED: PANCREAZE DR 10,500 UNIT FEEDTUBE PRN (10:45)
[2019-08-14] MEDS ORDERED: SODIUM BICARBONATE FEEDTUBE PRN (10:45)
--- NOTE | 2019-08-14 11:27 | Progress Note ---
Assessment and Plan Assessment and plan: Sepsis secondary to Acute mitral valve endocarditis with Enterococcus: TTE show ed mitral valve vegetation. Appreciate Cardiology recs, no surgical intervention. -Picc line placed. discontinued Vancomycin. 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 -LP done, doubt meningitis, isolation discontinued Acute encephalopathy secondary to Seizure precipitated by sepsis -Continue to monitor -Neurology consulted and input noted. Possible seizure rather than CVA also as evidenced by CT head, with no acute cva noted. Hypertension -Continue to monitor BP -cont. 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 Psychiatry nurse practitioner note reviewed: for outpatient follow-up DVT PPX -SCD's -start sq lovenox, d/w Heme/Onc Disposition. Discharge once IV abx arranged History Interval history: No new issues overnight. Hospitalist Physical - Constitutional Vitals: Temp Pulse Resp BP Pulse Ox 98.8 F 84 20 147/76 98 08/14/19 04:45 08/14/19 09:23 08/14/19 04:45 08/14/19 09:23 08/14/19 10:00 General appearance: Present: no acute distress - EENT Eyes: Present: PERRL, EOM intact ENT: hearing intact, clear oral mucosa, dentition normal - Neck Neck: Present: supple, normal ROM - Respiratory Respiratory effort: normal Respiratory: bilateral: CTA - Cardiovascular Rhythm: regular Heart Sounds: Present: S1 & S2. Absent: gallop, rub - Extremities Extremities: no ischemia, No edema, Full ROM - Abdominal General gastrointestinal: soft, non-tender, non-distended, normal bowel sounds - Integumentary Integumentary: Present: clear, warm, dry - Neurologic Neurologic: CNII-XII intact, moves all extremities Results - Labs CBC & Chem 7: 08/13/19 04:39 08/13/19 04:39 Labs: Laboratory Last Values WBC 4.1 K/mm3 (4.5-11.0) L 08/13/19 04:39 RBC 2.92 M/mm3 (3.65-5.03) L 08/13/19 04:39 Hgb 10.5 gm/dl (11.8-15.2) L 08/13/19 04:39 Hct 31.7 % (35.5-45.6) L 08/13/19 04:39 MCV 109 fl (84-94) H 08/13/19 04:39 MCH 36 pg (28-32) H 08/13/19 04:39 MCHC 33 % (32-34) 08/13/19 04:39 RDW 20.3 % (13.2-15.2) H 08/13/19 04:39 Plt Count 352 K/mm3 (140-440) 08/13/19 04:39 Lymph % (Auto) 39.5 % (13.4-35.0) H 08/13/19 04:39 [place] % (Auto) 11.7 % (0.0-7.3) H 08/13/19 04:39 Eos % (Auto) 6.4 % (0.0-4.3) H 08/13/19 04:39 Baso % (Auto) 1.8 % (0.0-1.8) 08/13/19 04:39 Lymph # 1.6 K/mm3 (1.2-5.4) 08/13/19 04:39 [place] # 0.5 K/mm3 (0.0-0.8) 08/13/19 04:39 Eos # 0.3 K/mm3 (0.0-0.4) 08/13/19 04:39 Baso # 0.1 K/mm3 (0.0-0.1) 08/13/19 04:39 Add Manual Diff Complete 07/29/19 00:42 Total Counted 100 07/29/19 00:42 Seg Neutrophils % 40.6 % (40.0-70.0) 08/13/19 04:39 Seg Neuts % (Manual) 82.0 % (40.0-70.0) H 07/29/19 00:42 Band Neutrophils % 0 % 07/29/19 00:42 Lymphocytes % (Manual) 16.0 % (13.4-35.0) 07/29/19 00:42 Reactive Lymphs % (Man) 0 % 07/29/19 00:42 Monocytes % (Manual) 1.0 % (0.0-7.3) 07/29/19 00:42 Eosinophils % (Manual) 0 % (0.0-4.3) 07/29/19 00:42 Basophils % (Manual) 1.0 % (0.0-1.8) 07/29/19 00:42 Metamyelocytes % 0 % 07/29/19 00:42 Myelocytes % 0 % 07/29/19 00:42 Promyelocytes % 0 % 07/29/19 00:42 Blast Cells % 0 % 07/29/19 00:42 Nucleated RBC % Not Reportable 07/29/19 00:42 Seg Neutrophils # 1.7 K/mm3 (1.8-7.7) L 08/13/19 04:39 Seg Neutrophils # Man 1.6 K/mm3 (1.8-7.7) L 07/29/19 00:42 Band Neutrophils # 0.0 K/mm3 07/29/19 00:42 Lymphocytes # (Manual) 0.3 K/mm3 (1.2-5.4) L 07/29/19 00:42 Abs React Lymphs (Man) 0.0 K/mm3 07/29/19 00:42 Monocytes # (Manual) 0.0 K/mm3 (0.0-0.8) 07/29/19 00:42 Eosinophils # (Manual) 0.0 K/mm3 (0.0-0.4) 07/29/19 00:42 Basophils # (Manual) 0.0 K/mm3 (0.0-0.1) 07/29/19 00:42 Metamyelocytes # 0.0 K/mm3 07/29/19 00:42 Myelocytes # 0.0 K/mm3 07/29/19 00:42 Promyelocytes # 0.0 K/mm3 07/29/19 00:42 Blast Cells # 0.0 K/mm3 07/29/19 00:42 WBC Morphology Not Reportable 07/29/19 00:42 Hypersegmented Neuts Not Reportable 07/29/19 00:42 Hyposegmented Neuts Not Reportable 07/29/19 00:42 Hypogranular Neuts Not Reportable 07/29/19 00:42 Smudge Cells Not Reportable 07/29/19 00:42 Toxic Granulation Not Reportable 07/29/19 00:42 Toxic Vacuolation Not Reportable 07/29/19 00:42 Dohle Bodies Not Reportable 07/29/19 00:42 Pelger-Huet Anomaly Not Reportable 07/29/19 00:42 Jorge A Rods Not Reportable 07/29/19 00:42 Platelet Estimate Not Reportable 07/29/19 00:42 Clumped Platelets Not Reportable 07/29/19 00:42 Plt Clumps, EDTA Not Reportable 07/29/19 00:42 Large Platelets Not Reportable 07/29/19 00:42 Giant Platelets Not Reportable 07/29/19 00:42 Platelet Satelliting Not Reportable 07/29/19 00:42 Plt Morphology Comment Not Reportable 07/29/19 00:42 RBC Morphology Not Reportable 07/29/19 00:42 Dimorphic RBCs Not Reportable 07/29/19 00:42 Polychromasia Not Reportable 07/29/19 00:42 Hypochromasia Not Reportable 07/29/19 00:42 Poikilocytosis Not Reportable 07/29/19 00:42 Anisocytosis 2+ 07/29/19 00:42 Microcytosis Not Reportable 07/29/19 00:42 Macrocytosis Not Reportable 07/29/19 00:42 Spherocytes Not Reportable 07/29/19 00:42 Pappenheimer Bodies Not Reportable 07/29/19 00:42 Sickle Cells Not Reportable 07/29/19 00:42 Target Cells Not Reportable 07/29/19 00:42 Tear Drop Cells Not Reportable 07/29/19 00:42 Ovalocytes Not Reportable 07/29/19 00:42 Helmet Cells Not Reportable 07/29/19 00:42 Antunez-Heath Bodies Not Reportable 07/29/19 00:42 [place] Rings Not Reportable 07/29/19 00:42 [place] Cells Not Reportable 07/29/19 00:42 Bite Cells Not Reportable 07/29/19 00:42 Crenated Cell Not Reportable 07/29/19 00:42 Elliptocytes Not Reportable 07/29/19 00:42 Acanthocytes (Spur) Not Reportable 07/29/19 00:42 Rouleaux Not Reportable 07/29/19 00:42 Hemoglobin C Crystals Not Reportable 07/29/19 00:42 Schistocytes Not Reportable 07/29/19 00:42 Malaria parasites Not Reportable 07/29/19 00:42 Marco Bodies Not Reportable 07/29/19 00:42 Hem Pathologist Commnt No 07/29/19 00:42 PT 13.8 Sec. (12.2-14.9) 07/29/19 00:42 INR 1.09 (0.87-1.13) 07/29/19 00:42 APTT 26.5 Sec. (24.2-36.6) 07/29/19 00:42 Thrombin Time 17.2 Sec. (15.1-19.6) 07/29/19 00:42 D-Dimer 1354.97 ng/mlDDU (0-234) H 07/29/19 00:42 Sodium 140 mmol/L (137-145) 08/13/19 04:39 Potassium 3.9 mmol/L (3.6-5.0) 08/13/19 04:39 Chloride 101.9 mmol/L (98-107) 08/13/19 04:39 Carbon Dioxide 27 mmol/L (22-30) 08/13/19 04:39 Anion Gap 15 mmol/L 08/13/19 04:39 BUN 12 mg/dL (9-20) 08/13/19 04:39 Creatinine 0.8 mg/dL (0.8-1.5) 08/13/19 04:39 Estimated GFR > 60 ml/min 08/13/19 04:39 BUN/Creatinine Ratio 15 % 08/13/19 04:39 Glucose 108 mg/dL (75-100) H 08/13/19 04:39 POC Glucose 83 (70-105) 08/07/19 07:40 Lactic Acid 1.80 mmol/L (0.7-2.0) 07/29/19 12:58 Calcium 8.9 mg/dL (8.4-10.2) 08/13/19 04:39 Iron 82 ug/dL (49-181) 08/01/19 06:54 TIBC 224 mcg/dL (250-450) L 08/01/19 06:54 Ferritin 1110.0 ng/mL (13.0-400.0) H 08/01/19 06:54 Total Bilirubin 0.30 mg/dL (0.1-1.2) 08/13/19 04:39 AST 16 units/L (5-40) 08/13/19 04:39 ALT 11 units/L (7-56) 08/13/19 04:39 Alkaline Phosphatase 70 units/L (35-129) 08/13/19 04:39 Total Creatine Kinase 184 units/L (55-170) H 07/29/19 12:58 CK-MB (CK-2) 2.8 ng/mL (0.0-4.0) 07/29/19 12:58 CK-MB (CK-2) Rel Index 1.5 (0-4) 07/29/19 12:58 Troponin T 0.114 ng/mL (0.00-0.029) H* D 07/29/19 10:44 NT-Pro-B Natriuret Pep 1767 pg/mL (0-900) H 07/29/19 02:03 Total Protein 8.4 g/dL (6.3-8.2) H 08/13/19 04:39 Albumin 3.6 g/dL (3.9-5) L 08/13/19 04:39 Albumin/Globulin Ratio 0.8 % 08/13/19 04:39 Triglycerides TNR 07/29/19 00:42 Cholesterol TNR 07/29/19 00:42 LDL Cholesterol Direct TNR 07/29/19 00:42 HDL Cholesterol TNR 07/29/19 00:42 Cholesterol/HDL Ratio TNR 07/29/19 00:42 Vitamin B12 1858 pg/mL (211-911) H 08/01/19 06:54 Folate 15.28 ng/mL (7.3-26.0) 08/01/19 06:54 Urine Color Yellow (Yellow) 07/29/19 01:50 Urine Turbidity Slightly-cloudy (Clear) 07/29/19 01:50 Urine pH 5.0 (5.0-7.0) 07/29/19 01:50 Ur Specific Oto 1.017 (1.003-1.030) 07/29/19 01:50 Urine Protein 100 mg/dl mg/dL (Negative) 07/29/19 01:50 Urine Glucose (UA) Neg mg/dL (Negative) 07/29/19 01:50 Urine Ketones Neg mg/dL (Negative) 07/29/19 01:50 Urine Blood Mod (Negative) 07/29/19 01:50 Urine Nitrite Pos (Negative) 07/29/19 01:50 Urine Bilirubin Neg (Negative) 07/29/19 01:50 Urine Urobilinogen 2.0 mg/dL (<2.0) 07/29/19 01:50 Ur Leukocyte Esterase Tr (Negative) 07/29/19 01:50 Urine WBC (Auto) 10.0 /HPF (0.0-6.0) H 07/29/19 01:50 Urine RBC (Auto) 41.0 /HPF (0.0-6.0) 07/29/19 01:50 U Epithel Cells (Auto) 1.0 /HPF (0-13.0) 07/29/19 01:50 Urine Bacteria (Auto) 2+ /HPF (Negative) 07/29/19 01:50 Urine Mucus Few /HPF 07/29/19 01:50 CSF Appearance Clear 07/30/19 12:00 CSF Color Colorless 07/30/19 12:00 CSF WBC 3 /mm3 (1-10) 07/30/19 12:00 CSF RBC 75 /mm3 (0-0) 07/30/19 12:00 CSF Seg Neutrophils 5.6 % (0-6) 07/30/19 12:00 CSF Lymphocytes % 88.9 % (40-80) 07/30/19 12:00 CSF Reactive Lymphs 0 % 07/30/19 12:00 CSF Monocytes % 5.6 % (15-45) 07/30/19 12:00 CSF Eosinophils % 0 % 07/30/19 12:00 CSF Basophils 0 % 07/30/19 12:00 CSF Pathologist Review C 07/30/19 12:00 CSF Glucose 64 mg/dL 07/30/19 12:00 CSF Total Protein 31 mg/dL 07/30/19 12:00 CSF VDRL Nonreactive (Nonreactive) 07/30/19 12:00 Vancomycin Trough 19.6 ug/mL (5.0-20.0) 08/01/19 07:50 Active Medications - Current Medications Current Medications: Generic Name Dose Route Start Last Admin Trade Name Freq PRN Reason Stop Dose Admin Acetaminophen 650 mg 07/29/19 05:29 Tylenol PO Q4H PRN Pain, Mild (1-3), fever 100.5> Acetaminophen/Hydrocodone Bitart 1 each 07/29/19 21:50 08/02/19 10:44 [place] 5/325 PO 1 each Q4H PRN Administration Pain, Moderate (4-6) Albuterol 2.5 mg 08/10/19 02:48 08/11/19 17:54 Proventil IH 2.5 mg Q4HRT PRN Administration Shortness Of Breath Lipase/Protease/Amylase 1 each 07/29/19 14:30 Ana Rosa Joseph 10,500 Unit FEEDTUBE PRN PRN For Clogged Feeding Tube Lipase/Protease/Amylase 1 each 08/14/19 10:45 Ana Rosa Joseph 10,500 Unit FEEDTUBE PRN PRN For Clogged Feeding Tube Aspirin 325 mg 07/29/19 10:00 08/14/19 09:22 Aspirin PO 325 mg QDAY LESLIE Administration Atorvastatin Calcium 80 mg 07/29/19 22:00 08/13/19 21:16 Lipitor PO 80 mg QHS LESLIE Administration Bisacodyl 10 mg 07/29/19 05:29 Dulcolax LA QDAY PRN Constipation Enoxaparin Sodium 40 mg 08/08/19 10:00 08/13/19 21:16 Lovenox SUB-Q 40 mg QDAY@2200 LESLIE Administration Hydralazine HCl 10 mg 08/01/19 05:00 08/13/19 21:17 Apresoline IV 10 mg Q4HR PRN Administration Hypertension Hydroxyurea 500 mg 08/03/19 15:00 08/13/19 15:43 Hydrea PO 500 mg TuThSa@1000 LESLIE Administration Ceftriaxone Sodium 2 gm in 100 mls @ 200 mls/hr 08/02/19 15:30 08/14/19 02:59 Rocephin/Ns 2 Gm/100 Ml IV 09/10/19 23:59 200 mls/hr Q12H LESLIE Administration Protocol Ampicillin Sodium 2 gm in 100 mls @ 100 mls/hr 08/05/19 10:00 08/14/19 09:23 Ampicillin/Ns 2 Gm/100 Ml IV 09/10/19 23:59 100 mls/hr Q4H LESLIE Administration Lisinopril 30 mg 08/14/19 10:00 08/14/19 09:23 Zestril PO 30 mg QDAY LESLIE Administration Lorazepam 1 mg 07/29/19 06:42 08/14/19 06:27 Ativan IV 1 mg Q4H PRN Administration Seizures Magnesium Hydroxide 30 ml 07/29/19 05:29 Milk Of Magnesia PO Q4H PRN Constipation Metoprolol Tartrate 50 mg 07/29/19 10:00 08/14/19 09:22 Lopressor PO 50 mg BID LESLIE Administration Ondansetron HCl 4 mg 07/29/19 05:29 08/10/19 10:49 Zofran IV 4 mg Q6H PRN Administration Nausea And Vomiting Simple Syrup 15 ml 07/29/19 14:30 Simple Syrup FEEDTUBE PRN PRN Hypoglycemia Simple Syrup 30 ml 07/29/19 14:30 Simple Syrup FEEDTUBE PRN PRN Hypoglycemia Simple Syrup 15 ml 08/14/19 10:45 Simple Syrup FEEDTUBE PRN PRN Hypoglycemia Simple Syrup 30 ml 08/14/19 10:45 Simple Syrup FEEDTUBE PRN PRN Hypoglycemia Sodium Bicarbonate 325 mg 07/29/19 14:30 Sodium Bicarbonate FEEDTUBE PRN PRN For Clogged Feeding Tube Sodium Bicarbonate 325 mg 08/14/19 10:45 Sodium Bicarbonate FEEDTUBE PRN PRN For Clogged Feeding Tube Sodium Chloride 10 ml 07/29/19 05:29 08/14/19 06:06 Sodium Chloride Flush Syringe 10 Ml IV 10 ml PRN PRN Administration LINE FLUSH Nutrition/Malnutrition Assess - Dietary Evaluation Nutrition/Malnutrition Findings: Nutrition Notes Start: 07/29/19 14:00 Freq: Status: Active Protocol: Document 08/14/19 10:13 CHAD (Rec: 08/14/19 10:48 CHAD [id number]) Co-Sign 08/14/19 10:13 NHALL Nutrition Notes Initial or Follow up Reassessment Current Diagnosis COPD,Sepsis,Hypertension, Hyperlipidemia Other Pertinent Diagnosis Hx CVA X 2, Nonverbal,UTI,Pneu , Acute encephalopathy, Suspicion of seizure Current Diet Pureed Diet Labs/Tests Reviewed Pertinent Medications Reviewed Height 5 ft 9 in Weight 82.7 kg [place] Body Weight (kg) 72.72 BMI 26.9 Subjective/Other Information Pt did not consume breakfast as it was not pureed. Pt to receive cyclic night time tube feedings. Percent of energy/protein needs met: 0%/0% Burn Absent Trauma Absent Minimum of two criteria No #1 Nutrition Diagnosis Inadequate oral intake As Evidenced by Signs and Symptoms Pt eating 0% of meals. Diagnosis Progress(for reassessment Continues documentation) Is patient on ventilator? No Is Patient Ambulatory and/or Out of Bed No [facility] 948 Calculation [facility] Additional Notes PRO: 81-97g (1-1.2g/kg/day) Fluid: 1mL/kcal Nutrition Intervention Change Diet Order: Change to cardiac pureed Nutrition Support: Initate Juvity 1.2 at 75 ml/h from 7 p to 7 a with 120 ml water flushes q 4 h Kcal 1,080 Protein (gm) 50 Fluid (mL) 726 Goal #1 Meet at least 75% of energy/ PRO needs via PO and cyclic TF . Anticipated Discharge Needs: Pureed cardiac Follow-Up By: 08/15/19 Additional Comments FU for PO intakes and TF tolerance
[2019-08-14] MEDS: ENOXAPARIN SUB-Q SCH (21:27)
[2019-08-15] MEDS: AMPICILLIN/NS 2 GM/100 ML 2 GM/100 ML BAG IV SCH ×6 (01:11→22:31)
[2019-08-15] MEDS: ROCEPHIN/NS 2 GM/100 ML 2 GM/100 ML BAG IV SCH ×2 (03:19→16:16)
--- NOTE | 2019-08-15 07:16 | Hem/Onc Progress Note ---
Assessment and Plan 1. h/o Unresponsiveness, history of fever. ID team following. 2. JAK2 mutation. The patient was on hydroxyurea, white cell count was low, Hydrea had been held. 3. History of chronic obstructive pulmonary disease. 4. History of hypertension. 5. History of hyperlipidemia. 6. History of cerebrovascular accident. 7. History of left renal cell cancer removal. 8. V/Q scan is negative for pulmonary embolism. 9. Lumbar puncture done 10. I will follow the patient during inpatient stay. pt awake - but speech slurred follows command of moving legs and opening mouth as per old notes - pt had been with Dr Frankel He was admitted to [facility] in feb 2019 - with CVA ID - Infective endocardititis 08/15 pt was on hydrea for CMPD - this was held as WBC was low restarted hydrea at a lower frequency pt moves legs and arms WBC fluctuating as he was walking away from the hospital - he is being watched - Patient Problems (1) Myeloproliferative disease Current Visit: No Status: Acute Subjective Date of service: 08/15/19 Principal diagnosis: CMPD Interval history: revieweed psych notes - getting PEG feeds Objective - Exam Narrative Exam: Pain - n/a General appearance - awake - but slurred speech Performance status complete dependence Eyes - no icterus ENT - no bleeding LNs cervical not palpable Neck - no LN Respiratory Normal Breath sounds - CTA anteriorly CVS S1 S2 + Extremities no calf tenderness General GI Soft - PEG + Rectal deferred male - deferred Skin warm Musculoskeletal moving extremitites Neurologically awake - slurred speech - Constitutional Vitals: Last Vital Signs Temp 98.4 F 08/15/19 04:40 Pulse 80 08/15/19 04:40 Resp 20 08/15/19 04:40 BP 130/83 08/15/19 04:40 Pulse Ox 98 08/15/19 04:42 Medications & Allergies - Medications Allergies/Adverse Reactions: Allergies No Known Allergies Allergy (Unverified 07/17/14 19:25) Home Medications: Home Medications Medication Instructions Recorded Confirmed Last Taken Type Metoprolol Tartrate 50 mg PO BID 03/05/19 07/29/19 07/28/19 History QUEtiapine 50 mg PO DAILY 03/05/19 07/29/19 Unknown History Aspirin 325 mg PO QDAY tablet 03/11/19 07/29/19 07/29/19 17:39 Rx AtorvaSTATin [Lipitor] 80 mg PO QHS tablet 03/11/19 07/29/19 Unknown Rx Lisinopril [Zestril TAB] 20 mg PO QDAY tablet 03/11/19 07/29/19 Unknown Rx traZODone [Desyrel] 50 mg PO QDAY PRN tablet 03/11/19 07/29/19 Unknown Rx Hydroxyurea [Hydrea] 500 mg PO TuThSa@1000 #30 capsule 08/05/19 Unknown Rx Active Medications: Generic Name Dose Route Start Last Admin Trade Name Freq PRN Reason Stop Dose Admin Acetaminophen 650 mg 07/29/19 05:29 Tylenol PO Q4H PRN Pain, Mild (1-3), fever 100.5> Acetaminophen/Hydrocodone Bitart 1 each 07/29/19 21:50 08/02/19 10:44 [place] 5/325 PO 1 each Q4H PRN Administration Pain, Moderate (4-6) Albuterol 2.5 mg 08/10/19 02:48 08/11/19 17:54 Proventil IH 2.5 mg Q4HRT PRN Administration Shortness Of Breath Lipase/Protease/Amylase 1 each 07/29/19 14:30 Ana Rosa Joseph 10,500 Unit FEEDTUBE PRN PRN For Clogged Feeding Tube Lipase/Protease/Amylase 1 each 08/14/19 10:45 Ana Rosa oJseph 10,500 Unit FEEDTUBE PRN PRN For Clogged Feeding Tube Aspirin 325 mg 07/29/19 10:00 08/14/19 09:22 Aspirin PO 325 mg QDAY LESLIE Administration Atorvastatin Calcium 80 mg 07/29/19 22:00 08/14/19 21:28 Lipitor PO 80 mg QHS LESLIE Administration Bisacodyl 10 mg 07/29/19 05:29 Dulcolax MA QDAY PRN Constipation Enoxaparin Sodium 40 mg 08/08/19 10:00 08/14/19 21:27 Lovenox SUB-Q 40 mg QDAY@2200 LESLIE Administration Hydralazine HCl 10 mg 08/01/19 05:00 08/13/19 21:17 Apresoline IV 10 mg Q4HR PRN Administration Hypertension Hydroxyurea 500 mg 08/03/19 15:00 08/13/19 15:43 Hydrea PO 500 mg TuThSa@1000 LESLIE Administration Ceftriaxone Sodium 2 gm in 100 mls @ 200 mls/hr 08/02/19 15:30 08/15/19 03:19 Rocephin/Ns 2 Gm/100 Ml IV 09/10/19 23:59 200 mls/hr Q12H LESLIE Administration Protocol Ampicillin Sodium 2 gm in 100 mls @ 100 mls/hr 08/05/19 10:00 08/15/19 05:29 Ampicillin/Ns 2 Gm/100 Ml IV 09/10/19 23:59 100 mls/hr Q4H LESLIE Administration Lisinopril 30 mg 08/14/19 10:00 08/14/19 09:23 Zestril PO 30 mg QDAY LESLIE Administration Lorazepam 1 mg 07/29/19 06:42 08/14/19 06:27 Ativan IV 1 mg Q4H PRN Administration Seizures Magnesium Hydroxide 30 ml 07/29/19 05:29 Milk Of Magnesia PO Q4H PRN Constipation Metoprolol Tartrate 50 mg 07/29/19 10:00 08/14/19 21:29 Lopressor PO 50 mg BID LESLIE Administration Ondansetron HCl 4 mg 07/29/19 05:29 08/10/19 10:49 Zofran IV 4 mg Q6H PRN Administration Nausea And Vomiting Simple Syrup 15 ml 07/29/19 14:30 Simple Syrup FEEDTUBE PRN PRN Hypoglycemia Simple Syrup 30 ml 07/29/19 14:30 Simple Syrup FEEDTUBE PRN PRN Hypoglycemia Simple Syrup 15 ml 08/14/19 10:45 Simple Syrup FEEDTUBE PRN PRN Hypoglycemia Simple Syrup 30 ml 08/14/19 10:45 Simple Syrup FEEDTUBE PRN PRN Hypoglycemia Sodium Bicarbonate 325 mg 07/29/19 14:30 Sodium Bicarbonate FEEDTUBE PRN PRN For Clogged Feeding Tube Sodium Bicarbonate 325 mg 08/14/19 10:45 Sodium Bicarbonate FEEDTUBE PRN PRN For Clogged Feeding Tube Sodium Chloride 10 ml 07/29/19 05:29 08/14/19 06:06 Sodium Chloride Flush Syringe 10 Ml IV 10 ml PRN PRN Administration LINE FLUSH
[2019-08-15] MEDS: METOPROLOL PO SCH ×2 (10:36→22:32)
[2019-08-15] MEDS: ZESTRIL PO SCH (10:36)
[2019-08-15] MEDS: ASPIRIN PO SCH (10:36)
--- NOTE | 2019-08-15 10:39 | Progress Note ---
Assessment and Plan Assessment and plan: Sepsis secondary to Acute mitral valve endocarditis with Enterococcus: TTE show ed mitral valve vegetation. Appreciate Cardiology recs, no surgical intervention. -Picc line placed. discontinued Vancomycin. 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 -LP done, doubt meningitis, isolation discontinued - reports questionable orthopnea. Check chest x-ray. Acute encephalopathy secondary to Seizure precipitated by sepsis -Continue to monitor -Neurology consulted and input noted. Possible seizure rather than CVA also as evidenced by CT head, with no acute cva noted. Hypertension -Continue to monitor BP -cont. 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 Psychiatry nurse practitioner note reviewed: for outpatient follow-up DVT PPX -SCD's -start sq lovenox, d/w Heme/Onc Disposition. Discharge once IV abx arranged History Interval history: No new issues overnight. Hospitalist Physical - Constitutional Vitals: Temp Pulse Resp BP Pulse Ox 98.4 F 78 18 153/97 97 08/15/19 04:40 08/15/19 10:36 08/15/19 09:22 08/15/19 10:36 08/15/19 09:19 General appearance: Present: no acute distress - EENT Eyes: Present: PERRL, EOM intact ENT: hearing intact, clear oral mucosa, dentition normal - Neck Neck: Present: supple, normal ROM - Respiratory Respiratory effort: normal Respiratory: bilateral: CTA - Cardiovascular Rhythm: regular Heart Sounds: Present: S1 & S2. Absent: gallop, rub - Extremities Extremities: no ischemia, No edema, Full ROM - Abdominal General gastrointestinal: soft, non-tender, non-distended, normal bowel sounds - Integumentary Integumentary: Present: clear, warm, dry - Neurologic Neurologic: CNII-XII intact, moves all extremities Results - Labs CBC & Chem 7: 08/13/19 04:39 08/13/19 04:39 Labs: Laboratory Last Values WBC 4.1 K/mm3 (4.5-11.0) L 08/13/19 04:39 RBC 2.92 M/mm3 (3.65-5.03) L 08/13/19 04:39 Hgb 10.5 gm/dl (11.8-15.2) L 08/13/19 04:39 Hct 31.7 % (35.5-45.6) L 08/13/19 04:39 MCV 109 fl (84-94) H 08/13/19 04:39 MCH 36 pg (28-32) H 08/13/19 04:39 MCHC 33 % (32-34) 08/13/19 04:39 RDW 20.3 % (13.2-15.2) H 08/13/19 04:39 Plt Count 352 K/mm3 (140-440) 08/13/19 04:39 Lymph % (Auto) 39.5 % (13.4-35.0) H 08/13/19 04:39 [place] % (Auto) 11.7 % (0.0-7.3) H 08/13/19 04:39 Eos % (Auto) 6.4 % (0.0-4.3) H 08/13/19 04:39 Baso % (Auto) 1.8 % (0.0-1.8) 08/13/19 04:39 Lymph # 1.6 K/mm3 (1.2-5.4) 08/13/19 04:39 [place] # 0.5 K/mm3 (0.0-0.8) 08/13/19 04:39 Eos # 0.3 K/mm3 (0.0-0.4) 08/13/19 04:39 Baso # 0.1 K/mm3 (0.0-0.1) 08/13/19 04:39 Add Manual Diff Complete 07/29/19 00:42 Total Counted 100 07/29/19 00:42 Seg Neutrophils % 40.6 % (40.0-70.0) 08/13/19 04:39 Seg Neuts % (Manual) 82.0 % (40.0-70.0) H 07/29/19 00:42 Band Neutrophils % 0 % 07/29/19 00:42 Lymphocytes % (Manual) 16.0 % (13.4-35.0) 07/29/19 00:42 Reactive Lymphs % (Man) 0 % 07/29/19 00:42 Monocytes % (Manual) 1.0 % (0.0-7.3) 07/29/19 00:42 Eosinophils % (Manual) 0 % (0.0-4.3) 07/29/19 00:42 Basophils % (Manual) 1.0 % (0.0-1.8) 07/29/19 00:42 Metamyelocytes % 0 % 07/29/19 00:42 Myelocytes % 0 % 07/29/19 00:42 Promyelocytes % 0 % 07/29/19 00:42 Blast Cells % 0 % 07/29/19 00:42 Nucleated RBC % Not Reportable 07/29/19 00:42 Seg Neutrophils # 1.7 K/mm3 (1.8-7.7) L 08/13/19 04:39 Seg Neutrophils # Man 1.6 K/mm3 (1.8-7.7) L 07/29/19 00:42 Band Neutrophils # 0.0 K/mm3 07/29/19 00:42 Lymphocytes # (Manual) 0.3 K/mm3 (1.2-5.4) L 07/29/19 00:42 Abs React Lymphs (Man) 0.0 K/mm3 07/29/19 00:42 Monocytes # (Manual) 0.0 K/mm3 (0.0-0.8) 07/29/19 00:42 Eosinophils # (Manual) 0.0 K/mm3 (0.0-0.4) 07/29/19 00:42 Basophils # (Manual) 0.0 K/mm3 (0.0-0.1) 07/29/19 00:42 Metamyelocytes # 0.0 K/mm3 07/29/19 00:42 Myelocytes # 0.0 K/mm3 07/29/19 00:42 Promyelocytes # 0.0 K/mm3 07/29/19 00:42 Blast Cells # 0.0 K/mm3 07/29/19 00:42 WBC Morphology Not Reportable 07/29/19 00:42 Hypersegmented Neuts Not Reportable 07/29/19 00:42 Hyposegmented Neuts Not Reportable 07/29/19 00:42 Hypogranular Neuts Not Reportable 07/29/19 00:42 Smudge Cells Not Reportable 07/29/19 00:42 Toxic Granulation Not Reportable 07/29/19 00:42 Toxic Vacuolation Not Reportable 07/29/19 00:42 Dohle Bodies Not Reportable 07/29/19 00:42 Pelger-Huet Anomaly Not Reportable 07/29/19 00:42 Jorge A Rods Not Reportable 07/29/19 00:42 Platelet Estimate Not Reportable 07/29/19 00:42 Clumped Platelets Not Reportable 07/29/19 00:42 Plt Clumps, EDTA Not Reportable 07/29/19 00:42 Large Platelets Not Reportable 07/29/19 00:42 Giant Platelets Not Reportable 07/29/19 00:42 Platelet Satelliting Not Reportable 07/29/19 00:42 Plt Morphology Comment Not Reportable 07/29/19 00:42 RBC Morphology Not Reportable 07/29/19 00:42 Dimorphic RBCs Not Reportable 07/29/19 00:42 Polychromasia Not Reportable 07/29/19 00:42 Hypochromasia Not Reportable 07/29/19 00:42 Poikilocytosis Not Reportable 07/29/19 00:42 Anisocytosis 2+ 07/29/19 00:42 Microcytosis Not Reportable 07/29/19 00:42 Macrocytosis Not Reportable 07/29/19 00:42 Spherocytes Not Reportable 07/29/19 00:42 Pappenheimer Bodies Not Reportable 07/29/19 00:42 Sickle Cells Not Reportable 07/29/19 00:42 Target Cells Not Reportable 07/29/19 00:42 Tear Drop Cells Not Reportable 07/29/19 00:42 Ovalocytes Not Reportable 07/29/19 00:42 Helmet Cells Not Reportable 07/29/19 00:42 Antunez-Marvin Bodies Not Reportable 07/29/19 00:42 [place] Rings Not Reportable 07/29/19 00:42 [place] Cells Not Reportable 07/29/19 00:42 Bite Cells Not Reportable 07/29/19 00:42 Crenated Cell Not Reportable 07/29/19 00:42 Elliptocytes Not Reportable 07/29/19 00:42 Acanthocytes (Spur) Not Reportable 07/29/19 00:42 Rouleaux Not Reportable 07/29/19 00:42 Hemoglobin C Crystals Not Reportable 07/29/19 00:42 Schistocytes Not Reportable 07/29/19 00:42 Malaria parasites Not Reportable 07/29/19 00:42 Marco Bodies Not Reportable 07/29/19 00:42 Hem Pathologist Commnt No 07/29/19 00:42 PT 13.8 Sec. (12.2-14.9) 07/29/19 00:42 INR 1.09 (0.87-1.13) 07/29/19 00:42 APTT 26.5 Sec. (24.2-36.6) 07/29/19 00:42 Thrombin Time 17.2 Sec. (15.1-19.6) 07/29/19 00:42 D-Dimer 1354.97 ng/mlDDU (0-234) H 07/29/19 00:42 Sodium 140 mmol/L (137-145) 08/13/19 04:39 Potassium 3.9 mmol/L (3.6-5.0) 08/13/19 04:39 Chloride 101.9 mmol/L (98-107) 08/13/19 04:39 Carbon Dioxide 27 mmol/L (22-30) 08/13/19 04:39 Anion Gap 15 mmol/L 08/13/19 04:39 BUN 12 mg/dL (9-20) 08/13/19 04:39 Creatinine 0.8 mg/dL (0.8-1.5) 08/13/19 04:39 Estimated GFR > 60 ml/min 08/13/19 04:39 BUN/Creatinine Ratio 15 % 08/13/19 04:39 Glucose 108 mg/dL (75-100) H 08/13/19 04:39 POC Glucose 83 (70-105) 08/07/19 07:40 Lactic Acid 1.80 mmol/L (0.7-2.0) 07/29/19 12:58 Calcium 8.9 mg/dL (8.4-10.2) 08/13/19 04:39 Iron 82 ug/dL (49-181) 08/01/19 06:54 TIBC 224 mcg/dL (250-450) L 08/01/19 06:54 Ferritin 1110.0 ng/mL (13.0-400.0) H 08/01/19 06:54 Total Bilirubin 0.30 mg/dL (0.1-1.2) 08/13/19 04:39 AST 16 units/L (5-40) 08/13/19 04:39 ALT 11 units/L (7-56) 08/13/19 04:39 Alkaline Phosphatase 70 units/L (35-129) 08/13/19 04:39 Total Creatine Kinase 184 units/L (55-170) H 07/29/19 12:58 CK-MB (CK-2) 2.8 ng/mL (0.0-4.0) 07/29/19 12:58 CK-MB (CK-2) Rel Index 1.5 (0-4) 07/29/19 12:58 Troponin T 0.114 ng/mL (0.00-0.029) H* D 07/29/19 10:44 NT-Pro-B Natriuret Pep 1767 pg/mL (0-900) H 07/29/19 02:03 Total Protein 8.4 g/dL (6.3-8.2) H 08/13/19 04:39 Albumin 3.6 g/dL (3.9-5) L 08/13/19 04:39 Albumin/Globulin Ratio 0.8 % 08/13/19 04:39 Triglycerides TNR 07/29/19 00:42 Cholesterol TNR 07/29/19 00:42 LDL Cholesterol Direct TNR 07/29/19 00:42 HDL Cholesterol TNR 07/29/19 00:42 Cholesterol/HDL Ratio TNR 07/29/19 00:42 Vitamin B12 1858 pg/mL (211-911) H 08/01/19 06:54 Folate 15.28 ng/mL (7.3-26.0) 08/01/19 06:54 Urine Color Yellow (Yellow) 07/29/19 01:50 Urine Turbidity Slightly-cloudy (Clear) 07/29/19 01:50 Urine pH 5.0 (5.0-7.0) 07/29/19 01:50 Ur Specific [place] 1.017 (1.003-1.030) 07/29/19 01:50 Urine Protein 100 mg/dl mg/dL (Negative) 07/29/19 01:50 Urine Glucose (UA) Neg mg/dL (Negative) 07/29/19 01:50 Urine Ketones Neg mg/dL (Negative) 07/29/19 01:50 Urine Blood Mod (Negative) 07/29/19 01:50 Urine Nitrite Pos (Negative) 07/29/19 01:50 Urine Bilirubin Neg (Negative) 07/29/19 01:50 Urine Urobilinogen 2.0 mg/dL (<2.0) 07/29/19 01:50 Ur Leukocyte Esterase Tr (Negative) 07/29/19 01:50 Urine WBC (Auto) 10.0 /HPF (0.0-6.0) H 07/29/19 01:50 Urine RBC (Auto) 41.0 /HPF (0.0-6.0) 07/29/19 01:50 U Epithel Cells (Auto) 1.0 /HPF (0-13.0) 07/29/19 01:50 Urine Bacteria (Auto) 2+ /HPF (Negative) 07/29/19 01:50 Urine Mucus Few /HPF 07/29/19 01:50 CSF Appearance Clear 07/30/19 12:00 CSF Color Colorless 07/30/19 12:00 CSF WBC 3 /mm3 (1-10) 07/30/19 12:00 CSF RBC 75 /mm3 (0-0) 07/30/19 12:00 CSF Seg Neutrophils 5.6 % (0-6) 07/30/19 12:00 CSF Lymphocytes % 88.9 % (40-80) 07/30/19 12:00 CSF Reactive Lymphs 0 % 07/30/19 12:00 CSF Monocytes % 5.6 % (15-45) 07/30/19 12:00 CSF Eosinophils % 0 % 07/30/19 12:00 CSF Basophils 0 % 07/30/19 12:00 CSF Pathologist Review C 07/30/19 12:00 CSF Glucose 64 mg/dL 07/30/19 12:00 CSF Total Protein 31 mg/dL 07/30/19 12:00 CSF VDRL Nonreactive (Nonreactive) 07/30/19 12:00 Vancomycin Trough 19.6 ug/mL (5.0-20.0) 08/01/19 07:50 Active Medications - Current Medications Current Medications: Generic Name Dose Route Start Last Admin Trade Name Freq PRN Reason Stop Dose Admin Acetaminophen 650 mg 07/29/19 05:29 Tylenol PO Q4H PRN Pain, Mild (1-3), fever 100.5> Acetaminophen/Hydrocodone Bitart 1 each 07/29/19 21:50 08/02/19 10:44 [place] 5/325 PO 1 each Q4H PRN Administration Pain, Moderate (4-6) Albuterol 2.5 mg 08/10/19 02:48 08/11/19 17:54 Proventil IH 2.5 mg Q4HRT PRN Administration Shortness Of Breath Lipase/Protease/Amylase 1 each 08/14/19 10:[address] 10,500 Unit FEEDTUBE PRN PRN For Clogged Feeding Tube Aspirin 325 mg 07/29/19 10:00 08/15/19 10:36 Aspirin PO 325 mg QDAY LESLIE Administration Atorvastatin Calcium 80 mg 07/29/19 22:00 08/14/19 21:28 Lipitor PO 80 mg QHS LESLIE Administration Bisacodyl 10 mg 07/29/19 05:29 Dulcolax [place] QDAY PRN Constipation Enoxaparin Sodium 40 mg 08/08/19 10:00 08/14/19 21:27 Lovenox SUB-Q 40 mg QDAY@2200 LESLIE Administration Hydralazine HCl 10 mg 08/01/19 05:00 08/13/19 21:17 Apresoline IV 10 mg Q4HR PRN Administration Hypertension Hydroxyurea 500 mg 08/03/19 15:00 08/13/19 15:43 Hydrea PO 500 mg TuThSa@1000 LESLIE Administration Ampicillin Sodium 2 gm in 100 mls @ 100 mls/hr 08/05/19 10:00 08/15/19 09:59 Ampicillin/Ns 2 Gm/100 Ml IV 09/10/19 23:59 100 mls/hr Q4H LESLIE Administration Lisinopril 30 mg 08/14/19 10:00 08/15/19 10:36 Zestril PO 30 mg QDAY LESLIE Administration Lorazepam 1 mg 07/29/19 06:42 08/14/19 06:27 Ativan IV 1 mg Q4H PRN Administration Seizures Magnesium Hydroxide 30 ml 07/29/19 05:29 Milk Of Magnesia PO Q4H PRN Constipation Metoprolol Tartrate 50 mg 07/29/19 10:00 08/15/19 10:36 Lopressor PO 50 mg BID LESLIE Administration Ondansetron HCl 4 mg 07/29/19 05:29 08/10/19 10:49 Zofran IV 4 mg Q6H PRN Administration Nausea And Vomiting Simple Syrup 15 ml 08/14/19 10:45 Simple Syrup FEEDTUBE PRN PRN Hypoglycemia Simple Syrup 30 ml 08/14/19 10:45 Simple Syrup FEEDTUBE PRN PRN Hypoglycemia Sodium Bicarbonate 325 mg 08/14/19 10:45 Sodium Bicarbonate FEEDTUBE PRN PRN For Clogged Feeding Tube Sodium Chloride 10 ml 07/29/19 05:29 08/14/19 06:06 Sodium Chloride Flush Syringe 10 Ml IV 10 ml PRN PRN Administration LINE FLUSH Nutrition/Malnutrition Assess - Dietary Evaluation Nutrition/Malnutrition Findings: Nutrition Notes Start: 07/29/19 14:00 Freq: Status: Active Protocol: Document 08/15/19 09:36 KS (Rec: 08/15/19 10:01 KS [id number]) Co-Sign 08/15/19 09:36 LP Nutrition Notes Initial or Follow up Reassessment Current Diagnosis COPD,Sepsis,Hypertension, Hyperlipidemia Other Pertinent Diagnosis Hx CVA X 2, Nonverbal,UTI,Pneu , Acute encephalopathy, Suspicion of seizure Current Diet Pureed Cardiac Diet, Overnight TF Labs/Tests Reviewed Pertinent Medications Reviewed Height 5 ft 9 in Weight 82.7 kg [place] Body Weight (kg) 72.72 BMI 26.9 Subjective/Other Information Pt received overnight TF of Jevity 1.2 at 75mL/hr last night per RN and pt. Pt reports tolerating TF with no N/V/D. Pt did not receive breakfast tray this morning. RN assures pt will receive lunch tray. Pt reports decreased appetite, eating 25% of meal trays. Percent of energy/protein needs met: 80%/88% Burn Absent Trauma Absent Minimum of two criteria No #1 Nutrition Diagnosis Inadequate oral intake As Evidenced by Signs and Symptoms Pt eating 25% of meals Diagnosis Progress(for reassessment Continues documentation) Is patient on ventilator? No Is Patient Ambulatory and/or Out of Bed No REE-(Davie-St. Jeor-confined to bed) 1997.948 Calculation Used for Recommendations Davie-St Jeor Additional Notes PRO: 81-97g (1-1.2g/kg/day) Fluid: 1mL/kcal Nutrition Intervention Change Diet Order: Continue current diet Nutrition Support: Initate Jevity 1.2 at 75 ml/h from 7 p to 7 a with 120 ml water flushes q 4 h Kcal 1,080 Protein (gm) 50 Fluid (mL) 726 Goal #1 Meet at least 75% of energy/ PRO needs via PO and cyclic TF . Anticipated Discharge Needs: Pureed cardiac Follow-Up By: 08/16/19 Additional Comments FU for PO intakes and TF tolerance
[2019-08-15] MEDS: HYDROXYUREA PO SCH (10:58)
--- NOTE | 2019-08-15 11:08 | XRay Report ---
CHEST 1 VIEW INDICATION: orthopnea. COMPARISON: 07/29/2019 FINDINGS: Support devices: None. Heart: Stable cardiomegaly. Pulmonary vasculature: Slightly increased central vascular congestion compared to the last exam. Lungs/Pleura: Bilateral dependent reticular interstitial opacities with a few new [place] B lines. Additional findings: None. IMPRESSION: Slight worsening of CHF with bilateral interstitial pulmonary edema. Signer Name: Ilya Posada MD Signed: 08/15/2019 11:04 AM Workstation Name: [id number]
--- NOTE | 2019-08-15 12:40 | Progress Note ---
Assessment and Plan Enterococcal sepsis Acute mitral valve endocarditis Hx of COPD Hypertension Prior CVA Elevation of troponin ECG is sinus tachycardia, no acute ischemic changes. An repeat echocardiogram this admission revealed: 1. Mitral valve vegetation. 2. Moderate MR. 3. Normal LV function EF 55-60%. 4. Mild-moderate AR. Recommend: Continue 6 weeks of intravenous antibiotic therapy for acute mitral valve endocarditis, after which we will repeat the echocardiogram with Doppler. We will follow intermittently. Subjective Date of service: 08/15/19 Principal diagnosis: CMPD Interval history: Patient is resting in bed comfortably. No cardiac complaints. Family member is at the bedside. Objective Vital Signs Temp Pulse Pulse Resp Resp BP BP 08/15/19 10:36 78 153/97 08/15/19 09:22 78 18 08/15/19 09:19 08/15/19 04:42 08/15/19 04:40 98.4 F 80 20 130/83 08/15/19 00:57 08/15/19 00:48 98.7 F 78 24 164/93 08/14/19 21:29 08/14/19 20:27 08/14/19 20:23 98.8 F 86 24 187/93 08/14/19 20:00 08/14/19 17:08 98.2 F 72 18 158/82 08/14/19 17:03 98.2 F 18 158/82 Pulse Ox 08/15/19 10:36 08/15/19 09:22 08/15/19 09:19 97 08/15/19 04:42 98 08/15/19 04:40 92 08/15/19 00:57 97 08/15/19 00:48 94 08/14/19 21:29 96 08/14/19 20:27 99 08/14/19 20:23 92 08/14/19 20:00 99 08/14/19 17:08 95 08/14/19 17:03 - Physical Examination General: No Apparent Distress HEENT: Positive: PERRL Neck: Positive: trachea midline Cardiac: Positive: Reg Rate and Rhythm Lungs: Positive: Decreased Breath Sounds Neuro: Positive: Weakness Extremities: Absent: edema
[2019-08-15] MEDS: ENOXAPARIN SUB-Q SCH (22:32)
[2019-08-16] MEDS: AMPICILLIN/NS 2 GM/100 ML 2 GM/100 ML BAG IV SCH ×6 (01:50→21:40)
[2019-08-16] MEDS: ROCEPHIN/NS 2 GM/100 ML 2 GM/100 ML BAG IV SCH ×2 (03:08→15:40)
--- NOTE | 2019-08-16 07:45 | Hem/Onc Progress Note ---
Assessment and Plan 1. h/o Unresponsiveness, history of fever. ID team following. 2. JAK2 mutation. The patient was on hydroxyurea, white cell count was low, Hydrea had been held. 3. History of chronic obstructive pulmonary disease. 4. History of hypertension. 5. History of hyperlipidemia. 6. History of cerebrovascular accident. 7. History of left renal cell cancer removal. 8. V/Q scan is negative for pulmonary embolism. 9. Lumbar puncture done 10. I will follow the patient during inpatient stay. pt awake - but speech slurred follows command of moving legs and opening mouth as per old notes - pt had been with Dr Frankel He was admitted to [facility] in feb 2019 - with CVA ID - Infective endocardititis 08/16 pt was on hydrea for CMPD - this was held as WBC was low restarted hydrea at a lower frequency WBC fluctuating as he was walking away from the hospital - he is being watched placement planned - Patient Problems (1) Myeloproliferative disease Current Visit: No Status: Acute Subjective Date of service: 08/16/19 Principal diagnosis: CMPD Interval history: waiting placement Objective - Exam Narrative Exam: Pain - n/a General appearance - awake - but slurred speech Performance status complete dependence Eyes - no icterus ENT - no bleeding LNs cervical not palpable Neck - no LN Respiratory Normal Breath sounds - CTA anteriorly CVS S1 S2 + Extremities no calf tenderness General GI Soft - PEG + Rectal deferred male - deferred Skin warm Musculoskeletal moving extremitites Neurologically awake - slurred speech - Constitutional Vitals: Last Vital Signs Temp 97.5 F L 08/16/19 03:31 Pulse 77 08/16/19 03:31 Resp 20 08/16/19 03:31 BP 149/76 08/16/19 03:31 Pulse Ox 100 08/16/19 03:31 Medications & Allergies - Medications Allergies/Adverse Reactions: Allergies No Known Allergies Allergy (Unverified 07/17/14 19:25) Home Medications: Home Medications Medication Instructions Recorded Confirmed Last Taken Type Metoprolol Tartrate 50 mg PO BID 03/05/19 07/29/19 07/28/19 History QUEtiapine 50 mg PO DAILY 03/05/19 07/29/19 Unknown History Aspirin 325 mg PO QDAY tablet 03/11/19 07/29/19 07/29/19 17:39 Rx AtorvaSTATin [Lipitor] 80 mg PO QHS tablet 03/11/19 07/29/19 Unknown Rx Lisinopril [Zestril TAB] 20 mg PO QDAY tablet 03/11/19 07/29/19 Unknown Rx traZODone [Desyrel] 50 mg PO QDAY PRN tablet 03/11/19 07/29/19 Unknown Rx Hydroxyurea [Hydrea] 500 mg PO TuThSa@1000 #30 capsule 08/05/19 Unknown Rx Active Medications: Generic Name Dose Route Start Last Admin Trade Name Freq PRN Reason Stop Dose Admin Acetaminophen 650 mg 07/29/19 05:29 Tylenol PO Q4H PRN Pain, Mild (1-3), fever 100.5> Acetaminophen/Hydrocodone Bitart 1 each 07/29/19 21:50 08/02/19 10:44 [place] 5/325 PO 1 each Q4H PRN Administration Pain, Moderate (4-6) Albuterol 2.5 mg 08/10/19 02:48 08/11/19 17:54 Proventil IH 2.5 mg Q4HRT PRN Administration Shortness Of Breath Lipase/Protease/Amylase 1 each 08/14/19 10:[address] 10,500 Unit FEEDTUBE PRN PRN For Clogged Feeding Tube Aspirin 325 mg 07/29/19 10:00 08/15/19 10:36 Aspirin PO 325 mg QDAY LESLIE Administration Atorvastatin Calcium 80 mg 07/29/19 22:00 08/15/19 22:32 Lipitor PO 80 mg QHS LESLIE Administration Bisacodyl 10 mg 07/29/19 05:29 Dulcolax [place] QDAY PRN Constipation Enoxaparin Sodium 40 mg 08/08/19 10:00 08/15/19 22:32 Lovenox SUB-Q 40 mg QDAY@2200 LESLIE Administration Hydralazine HCl 10 mg 08/01/19 05:00 08/13/19 21:17 Apresoline IV 10 mg Q4HR PRN Administration Hypertension Hydroxyurea 500 mg 08/03/19 15:00 08/15/19 10:58 Hydrea PO 500 mg TuThSa@1000 LESLIE Administration Ampicillin Sodium 2 gm in 100 mls @ 100 mls/hr 08/05/19 10:00 08/16/19 05:31 Ampicillin/Ns 2 Gm/100 Ml IV 09/10/19 23:59 100 mls/hr Q4H LESLIE Administration Ceftriaxone Sodium 2 gm in 100 mls @ 200 mls/hr 08/15/19 15:00 08/16/19 03:08 Rocephin/Ns 2 Gm/100 Ml IV 09/10/19 23:59 200 mls/hr Q12H LESLIE Administration Protocol Lisinopril 30 mg 08/14/19 10:00 08/15/19 10:36 Zestril PO 30 mg QDAY LESLIE Administration Lorazepam 1 mg 07/29/19 06:42 08/14/19 06:27 Ativan IV 1 mg Q4H PRN Administration Seizures Magnesium Hydroxide 30 ml 07/29/19 05:29 Milk Of Magnesia PO Q4H PRN Constipation Metoprolol Tartrate 50 mg 07/29/19 10:00 08/15/19 22:32 Lopressor PO 50 mg BID LESLIE Administration Ondansetron HCl 4 mg 07/29/19 05:29 08/10/19 10:49 Zofran IV 4 mg Q6H PRN Administration Nausea And Vomiting Simple Syrup 15 ml 08/14/19 10:45 Simple Syrup FEEDTUBE PRN PRN Hypoglycemia Simple Syrup 30 ml 08/14/19 10:45 Simple Syrup FEEDTUBE PRN PRN Hypoglycemia Sodium Bicarbonate 325 mg 08/14/19 10:45 Sodium Bicarbonate FEEDTUBE PRN PRN For Clogged Feeding Tube Sodium Chloride 10 ml 07/29/19 05:29 08/14/19 06:06 Sodium Chloride Flush Syringe 10 Ml IV 10 ml PRN PRN Administration LINE FLUSH
[2019-08-16] MEDS: METOPROLOL PO SCH ×2 (09:20→21:41)
[2019-08-16] MEDS: ASPIRIN PO SCH (09:20)
[2019-08-16] MEDS: ZESTRIL PO SCH (09:20)
[2019-08-16] MEDS: SODIUM CHLORIDE FLUSH SYRINGE 10 ML IV PRN ×2 (09:21→21:40)
--- NOTE | 2019-08-16 10:34 | Progress Note ---
Assessment and Plan Assessment and plan: Acute pulmonary edema. Consider Lasix intermittently. EF recorded on last ech ocardiogram 55-60%. I discussed with cardiology who will evaluate today. Sepsis secondary to Acute mitral valve endocarditis with Enterococcus: TTE showed mitral valve vegetation. Appreciate Cardiology recs, no surgical intervention. -Picc line placed. discontinued Vancomycin. 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 -LP done, doubt meningitis, isolation discontinued - reports questionable orthopnea. Check chest x-ray. Acute encephalopathy secondary to Seizure precipitated by sepsis -Continue to monitor -Neurology consulted and input noted. Possible seizure rather than CVA also as evidenced by CT head, with no acute cva noted. Hypertension -Continue to monitor BP -cont. 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 Psychiatry nurse practitioner note reviewed: for outpatient follow-up DVT PPX -SCD's -start sq lovenox, d/w Heme/Onc Disposition. Discharge once IV abx arranged History Interval history: No new issues overnight. Hospitalist Physical - Constitutional Vitals: Temp Pulse Resp BP Pulse Ox 98.3 F 86 18 169/98 100 08/16/19 08:18 08/16/19 09:20 08/16/19 08:18 08/16/19 09:20 08/16/19 08:18 General appearance: Present: no acute distress - EENT Eyes: Present: PERRL, EOM intact ENT: hearing intact, clear oral mucosa, dentition normal - Neck Neck: Present: supple, normal ROM - Respiratory Respiratory effort: normal Respiratory: bilateral: CTA - Cardiovascular Rhythm: regular Heart Sounds: Present: S1 & S2. Absent: gallop, rub - Extremities Extremities: no ischemia, No edema, Full ROM - Abdominal General gastrointestinal: soft, non-tender, non-distended, normal bowel sounds - Integumentary Integumentary: Present: clear, warm, dry - Neurologic Neurologic: CNII-XII intact, moves all extremities Results - Labs CBC & Chem 7: 08/13/19 04:39 08/13/19 04:39 Labs: Laboratory Last Values WBC 4.1 K/mm3 (4.5-11.0) L 08/13/19 04:39 RBC 2.92 M/mm3 (3.65-5.03) L 08/13/19 04:39 Hgb 10.5 gm/dl (11.8-15.2) L 08/13/19 04:39 Hct 31.7 % (35.5-45.6) L 08/13/19 04:39 MCV 109 fl (84-94) H 08/13/19 04:39 MCH 36 pg (28-32) H 08/13/19 04:39 MCHC 33 % (32-34) 08/13/19 04:39 RDW 20.3 % (13.2-15.2) H 08/13/19 04:39 Plt Count 352 K/mm3 (140-440) 08/13/19 04:39 Lymph % (Auto) 39.5 % (13.4-35.0) H 08/13/19 04:39 [place] % (Auto) 11.7 % (0.0-7.3) H 08/13/19 04:39 Eos % (Auto) 6.4 % (0.0-4.3) H 08/13/19 04:39 Baso % (Auto) 1.8 % (0.0-1.8) 08/13/19 04:39 Lymph # 1.6 K/mm3 (1.2-5.4) 08/13/19 04:39 [place] # 0.5 K/mm3 (0.0-0.8) 08/13/19 04:39 Eos # 0.3 K/mm3 (0.0-0.4) 08/13/19 04:39 Baso # 0.1 K/mm3 (0.0-0.1) 08/13/19 04:39 Add Manual Diff Complete 07/29/19 00:42 Total Counted 100 07/29/19 00:42 Seg Neutrophils % 40.6 % (40.0-70.0) 08/13/19 04:39 Seg Neuts % (Manual) 82.0 % (40.0-70.0) H 07/29/19 00:42 Band Neutrophils % 0 % 07/29/19 00:42 Lymphocytes % (Manual) 16.0 % (13.4-35.0) 07/29/19 00:42 Reactive Lymphs % (Man) 0 % 07/29/19 00:42 Monocytes % (Manual) 1.0 % (0.0-7.3) 07/29/19 00:42 Eosinophils % (Manual) 0 % (0.0-4.3) 07/29/19 00:42 Basophils % (Manual) 1.0 % (0.0-1.8) 07/29/19 00:42 Metamyelocytes % 0 % 07/29/19 00:42 Myelocytes % 0 % 07/29/19 00:42 Promyelocytes % 0 % 07/29/19 00:42 Blast Cells % 0 % 07/29/19 00:42 Nucleated RBC % Not Reportable 07/29/19 00:42 Seg Neutrophils # 1.7 K/mm3 (1.8-7.7) L 08/13/19 04:39 Seg Neutrophils # Man 1.6 K/mm3 (1.8-7.7) L 07/29/19 00:42 Band Neutrophils # 0.0 K/mm3 07/29/19 00:42 Lymphocytes # (Manual) 0.3 K/mm3 (1.2-5.4) L 07/29/19 00:42 Abs React Lymphs (Man) 0.0 K/mm3 07/29/19 00:42 Monocytes # (Manual) 0.0 K/mm3 (0.0-0.8) 07/29/19 00:42 Eosinophils # (Manual) 0.0 K/mm3 (0.0-0.4) 07/29/19 00:42 Basophils # (Manual) 0.0 K/mm3 (0.0-0.1) 07/29/19 00:42 Metamyelocytes # 0.0 K/mm3 07/29/19 00:42 Myelocytes # 0.0 K/mm3 07/29/19 00:42 Promyelocytes # 0.0 K/mm3 07/29/19 00:42 Blast Cells # 0.0 K/mm3 07/29/19 00:42 WBC Morphology Not Reportable 07/29/19 00:42 Hypersegmented Neuts Not Reportable 07/29/19 00:42 Hyposegmented Neuts Not Reportable 07/29/19 00:42 Hypogranular Neuts Not Reportable 07/29/19 00:42 Smudge Cells Not Reportable 07/29/19 00:42 Toxic Granulation Not Reportable 07/29/19 00:42 Toxic Vacuolation Not Reportable 07/29/19 00:42 Dohle Bodies Not Reportable 07/29/19 00:42 Pelger-Huet Anomaly Not Reportable 07/29/19 00:42 Jorge A Rods Not Reportable 07/29/19 00:42 Platelet Estimate Not Reportable 07/29/19 00:42 Clumped Platelets Not Reportable 07/29/19 00:42 Plt Clumps, EDTA Not Reportable 07/29/19 00:42 Large Platelets Not Reportable 07/29/19 00:42 Giant Platelets Not Reportable 07/29/19 00:42 Platelet Satelliting Not Reportable 07/29/19 00:42 Plt Morphology Comment Not Reportable 07/29/19 00:42 RBC Morphology Not Reportable 07/29/19 00:42 Dimorphic RBCs Not Reportable 07/29/19 00:42 Polychromasia Not Reportable 07/29/19 00:42 Hypochromasia Not Reportable 07/29/19 00:42 Poikilocytosis Not Reportable 07/29/19 00:42 Anisocytosis 2+ 07/29/19 00:42 Microcytosis Not Reportable 07/29/19 00:42 Macrocytosis Not Reportable 07/29/19 00:42 Spherocytes Not Reportable 07/29/19 00:42 Pappenheimer Bodies Not Reportable 07/29/19 00:42 Sickle Cells Not Reportable 07/29/19 00:42 Target Cells Not Reportable 07/29/19 00:42 Tear Drop Cells Not Reportable 07/29/19 00:42 Ovalocytes Not Reportable 07/29/19 00:42 Helmet Cells Not Reportable 07/29/19 00:42 Antunez-Hagan Bodies Not Reportable 07/29/19 00:42 [place] Rings Not Reportable 07/29/19 00:42 [place] Cells Not Reportable 07/29/19 00:42 Bite Cells Not Reportable 07/29/19 00:42 Crenated Cell Not Reportable 07/29/19 00:42 Elliptocytes Not Reportable 07/29/19 00:42 Acanthocytes (Spur) Not Reportable 07/29/19 00:42 Rouleaux Not Reportable 07/29/19 00:42 Hemoglobin C Crystals Not Reportable 07/29/19 00:42 Schistocytes Not Reportable 07/29/19 00:42 Malaria parasites Not Reportable 07/29/19 00:42 Marco Bodies Not Reportable 07/29/19 00:42 Hem Pathologist Commnt No 07/29/19 00:42 PT 13.8 Sec. (12.2-14.9) 07/29/19 00:42 INR 1.09 (0.87-1.13) 07/29/19 00:42 APTT 26.5 Sec. (24.2-36.6) 07/29/19 00:42 Thrombin Time 17.2 Sec. (15.1-19.6) 07/29/19 00:42 D-Dimer 1354.97 ng/mlDDU (0-234) H 07/29/19 00:42 Sodium 140 mmol/L (137-145) 08/13/19 04:39 Potassium 3.9 mmol/L (3.6-5.0) 08/13/19 04:39 Chloride 101.9 mmol/L (98-107) 08/13/19 04:39 Carbon Dioxide 27 mmol/L (22-30) 08/13/19 04:39 Anion Gap 15 mmol/L 08/13/19 04:39 BUN 12 mg/dL (9-20) 08/13/19 04:39 Creatinine 0.8 mg/dL (0.8-1.5) 08/13/19 04:39 Estimated GFR > 60 ml/min 08/13/19 04:39 BUN/Creatinine Ratio 15 % 08/13/19 04:39 Glucose 108 mg/dL (75-100) H 08/13/19 04:39 POC Glucose 83 (70-105) 08/07/19 07:40 Lactic Acid 1.80 mmol/L (0.7-2.0) 07/29/19 12:58 Calcium 8.9 mg/dL (8.4-10.2) 08/13/19 04:39 Iron 82 ug/dL (49-181) 08/01/19 06:54 TIBC 224 mcg/dL (250-450) L 08/01/19 06:54 Ferritin 1110.0 ng/mL (13.0-400.0) H 08/01/19 06:54 Total Bilirubin 0.30 mg/dL (0.1-1.2) 08/13/19 04:39 AST 16 units/L (5-40) 08/13/19 04:39 ALT 11 units/L (7-56) 08/13/19 04:39 Alkaline Phosphatase 70 units/L (35-129) 08/13/19 04:39 Total Creatine Kinase 184 units/L (55-170) H 07/29/19 12:58 CK-MB (CK-2) 2.8 ng/mL (0.0-4.0) 07/29/19 12:58 CK-MB (CK-2) Rel Index 1.5 (0-4) 07/29/19 12:58 Troponin T 0.114 ng/mL (0.00-0.029) H* D 07/29/19 10:44 NT-Pro-B Natriuret Pep 1767 pg/mL (0-900) H 07/29/19 02:03 Total Protein 8.4 g/dL (6.3-8.2) H 08/13/19 04:39 Albumin 3.6 g/dL (3.9-5) L 08/13/19 04:39 Albumin/Globulin Ratio 0.8 % 08/13/19 04:39 Triglycerides TNR 07/29/19 00:42 Cholesterol TNR 07/29/19 00:42 LDL Cholesterol Direct TNR 07/29/19 00:42 HDL Cholesterol TNR 07/29/19 00:42 Cholesterol/HDL Ratio TNR 07/29/19 00:42 Vitamin B12 1858 pg/mL (211-911) H 08/01/19 06:54 Folate 15.28 ng/mL (7.3-26.0) 08/01/19 06:54 Urine Color Yellow (Yellow) 07/29/19 01:50 Urine Turbidity Slightly-cloudy (Clear) 07/29/19 01:50 Urine pH 5.0 (5.0-7.0) 07/29/19 01:50 Ur Specific [place] 1.017 (1.003-1.030) 07/29/19 01:50 Urine Protein 100 mg/dl mg/dL (Negative) 07/29/19 01:50 Urine Glucose (UA) Neg mg/dL (Negative) 07/29/19 01:50 Urine Ketones Neg mg/dL (Negative) 07/29/19 01:50 Urine Blood Mod (Negative) 07/29/19 01:50 Urine Nitrite Pos (Negative) 07/29/19 01:50 Urine Bilirubin Neg (Negative) 07/29/19 01:50 Urine Urobilinogen 2.0 mg/dL (<2.0) 07/29/19 01:50 Ur Leukocyte Esterase Tr (Negative) 07/29/19 01:50 Urine WBC (Auto) 10.0 /HPF (0.0-6.0) H 07/29/19 01:50 Urine RBC (Auto) 41.0 /HPF (0.0-6.0) 07/29/19 01:50 U Epithel Cells (Auto) 1.0 /HPF (0-13.0) 07/29/19 01:50 Urine Bacteria (Auto) 2+ /HPF (Negative) 07/29/19 01:50 Urine Mucus Few /HPF 07/29/19 01:50 CSF Appearance Clear 07/30/19 12:00 CSF Color Colorless 07/30/19 12:00 CSF WBC 3 /mm3 (1-10) 07/30/19 12:00 CSF RBC 75 /mm3 (0-0) 07/30/19 12:00 CSF Seg Neutrophils 5.6 % (0-6) 07/30/19 12:00 CSF Lymphocytes % 88.9 % (40-80) 07/30/19 12:00 CSF Reactive Lymphs 0 % 07/30/19 12:00 CSF Monocytes % 5.6 % (15-45) 07/30/19 12:00 CSF Eosinophils % 0 % 07/30/19 12:00 CSF Basophils 0 % 07/30/19 12:00 CSF Pathologist Review C 07/30/19 12:00 CSF Glucose 64 mg/dL 07/30/19 12:00 CSF Total Protein 31 mg/dL 07/30/19 12:00 CSF VDRL Nonreactive (Nonreactive) 07/30/19 12:00 Vancomycin Trough 19.6 ug/mL (5.0-20.0) 08/01/19 07:50 Active Medications - Current Medications Current Medications: Generic Name Dose Route Start Last Admin Trade Name Freq PRN Reason Stop Dose Admin Acetaminophen 650 mg 07/29/19 05:29 Tylenol PO Q4H PRN Pain, Mild (1-3), fever 100.5> Acetaminophen/Hydrocodone Bitart 1 each 07/29/19 21:50 08/02/19 10:44 [place] 5/325 PO 1 each Q4H PRN Administration Pain, Moderate (4-6) Albuterol 2.5 mg 08/10/19 02:48 08/11/19 17:54 Proventil IH 2.5 mg Q4HRT PRN Administration Shortness Of Breath Lipase/Protease/Amylase 1 each 08/14/19 10:[address] 10,500 Unit FEEDTUBE PRN PRN For Clogged Feeding Tube Aspirin 325 mg 07/29/19 10:00 08/16/19 09:20 Aspirin PO 325 mg QDAY LESLIE Administration Atorvastatin Calcium 80 mg 07/29/19 22:00 08/15/19 22:32 Lipitor PO 80 mg QHS LESLIE Administration Bisacodyl 10 mg 07/29/19 05:29 Dulcolax [place] QDAY PRN Constipation Enoxaparin Sodium 40 mg 08/08/19 10:00 08/15/19 22:32 Lovenox SUB-Q 40 mg QDAY@2200 LESLIE Administration Hydralazine HCl 10 mg 08/01/19 05:00 08/13/19 21:17 Apresoline IV 10 mg Q4HR PRN Administration Hypertension Hydroxyurea 500 mg 08/03/19 15:00 08/15/19 10:58 Hydrea PO 500 mg TuThSa@1000 LESLIE Administration Ampicillin Sodium 2 gm in 100 mls @ 100 mls/hr 08/05/19 10:00 08/16/19 09:21 Ampicillin/Ns 2 Gm/100 Ml IV 09/10/19 23:59 100 mls/hr Q4H LESLIE Administration Ceftriaxone Sodium 2 gm in 100 mls @ 200 mls/hr 08/15/19 15:00 08/16/19 03:08 Rocephin/Ns 2 Gm/100 Ml IV 09/10/19 23:59 200 mls/hr Q12H LESLIE Administration Protocol Lisinopril 30 mg 08/14/19 10:00 08/16/19 09:20 Zestril PO 30 mg QDAY LESLIE Administration Lorazepam 1 mg 07/29/19 06:42 08/14/19 06:27 Ativan IV 1 mg Q4H PRN Administration Seizures Magnesium Hydroxide 30 ml 07/29/19 05:29 Milk Of Magnesia PO Q4H PRN Constipation Metoprolol Tartrate 50 mg 07/29/19 10:00 08/16/19 09:20 Lopressor PO 50 mg BID LESLIE Administration Ondansetron HCl 4 mg 07/29/19 05:29 08/10/19 10:49 Zofran IV 4 mg Q6H PRN Administration Nausea And Vomiting Simple Syrup 15 ml 08/14/19 10:45 Simple Syrup FEEDTUBE PRN PRN Hypoglycemia Simple Syrup 30 ml 08/14/19 10:45 Simple Syrup FEEDTUBE PRN PRN Hypoglycemia Sodium Bicarbonate 325 mg 08/14/19 10:45 Sodium Bicarbonate FEEDTUBE PRN PRN For Clogged Feeding Tube Sodium Chloride 10 ml 07/29/19 05:29 08/16/19 09:21 Sodium Chloride Flush Syringe 10 Ml IV 10 ml PRN PRN Administration LINE FLUSH Nutrition/Malnutrition Assess - Dietary Evaluation Nutrition/Malnutrition Findings: Nutrition Notes Start: 07/29/19 14:00 Freq: Status: Active Protocol: Document 08/15/19 09:36 KS (Rec: 08/15/19 10:01 KS [id number]) Co-Sign 08/15/19 09:36 LP Nutrition Notes Initial or Follow up Reassessment Current Diagnosis COPD,Sepsis,Hypertension, Hyperlipidemia Other Pertinent Diagnosis Hx CVA X 2, Nonverbal,UTI,Pneu , Acute encephalopathy, Suspicion of seizure Current Diet Pureed Cardiac Diet, Overnight TF Labs/Tests Reviewed Pertinent Medications Reviewed Height 5 ft 9 in Weight 82.7 kg [place] Body Weight (kg) 72.72 BMI 26.9 Subjective/Other Information Pt received overnight TF of Jevity 1.2 at 75mL/hr last night per RN and pt. Pt reports tolerating TF with no N/V/D. Pt did not receive breakfast tray this morning. RN assures pt will receive lunch tray. Pt reports decreased appetite, eating 25% of meal trays. Percent of energy/protein needs met: 80%/88% Burn Absent Trauma Absent Minimum of two criteria No #1 Nutrition Diagnosis Inadequate oral intake As Evidenced by Signs and Symptoms Pt eating 25% of meals Diagnosis Progress(for reassessment Continues documentation) Is patient on ventilator? No Is Patient Ambulatory and/or Out of Bed No REE-([facility]-confined to bed) 1997.948 Calculation Used for Recommendations [facility] Additional Notes PRO: 81-97g (1-1.2g/kg/day) Fluid: 1mL/kcal Nutrition Intervention Change Diet Order: Continue current diet Nutrition Support: Initate Jevity 1.2 at 75 ml/h from 7 p to 7 a with 120 ml water flushes q 4 h Kcal 1,080 Protein (gm) 50 Fluid (mL) 726 Goal #1 Meet at least 75% of energy/ PRO needs via PO and cyclic TF . Anticipated Discharge Needs: Pureed cardiac Follow-Up By: 08/16/19 Additional Comments FU for PO intakes and TF tolerance
--- NOTE | 2019-08-16 11:57 | Progress Note ---
Assessment and Plan Enterococcal sepsis Acute mitral valve endocarditis with moderate eccentric mitral regurgitation Blood cultures 07/30/2019 - NGTD Moderate to severe eccentric aortic regurgitation noted Volume overload on exam noted with distended neck veins and rales over the LLL Hx of COPD Hypertension Prior CVA Elevation of troponin ECG is sinus tachycardia, no acute ischemic changes. Patient is currently not on tele Recommend: Gentle diuresis with IV lasix Afterload reduction with hydralazine Repeat limited echo with special focus on AR severity/obtain images of the abdominal aorta to check for diastolic flow reversal Continue Abx per ID recommendations Will continue to follow Subjective Date of service: 08/16/19 Principal diagnosis: CMPD Interval history: I was called this morning by Dr Floyd who stated that patient's is concerned since she noticed increased work of breathing while lying supine Patient is currently asymptomatic and denies chest pain or shortness of breath. He is sitting in chair Objective Vital Signs Temp Pulse Pulse Resp BP Pulse Ox 08/16/19 09:20 86 169/98 08/16/19 08:18 98.3 F 86 18 169/98 100 08/16/19 03:31 97.5 F L 77 20 149/76 100 08/15/19 23:17 97.5 F L 71 22 137/88 100 08/15/19 22:32 77 160/81 08/15/19 22:05 77 18 96 08/15/19 22:00 98 08/15/19 20:03 98.4 F 77 22 160/81 96 08/15/19 15:01 98.1 F 75 20 137/75 93 - Physical Examination General: No Apparent Distress HEENT: Positive: PERRL Neck: Positive: trachea midline, JVD/HJR Cardiac: Positive: Reg Rate and Rhythm, Diastolic Murmur Lungs: Positive: Rales Neuro: Positive: Weakness Abdomen: Positive: Active Bowel Sounds Skin: Positive: Clear Extremities: Absent: edema
[2019-08-16] MEDS: APRESOLINE PO SCH ×2 (14:31→21:41)
[2019-08-16] MEDS: LASIX IV SCH (14:33)
[2019-08-16] MEDS: ENOXAPARIN SUB-Q SCH (21:42)
[2019-08-17] MEDS: APRESOLINE IV PRN (00:01)
[2019-08-17] MEDS: AMPICILLIN/NS 2 GM/100 ML 2 GM/100 ML BAG IV SCH ×6 (01:47→21:01)
[2019-08-17] MEDS: ROCEPHIN/NS 2 GM/100 ML 2 GM/100 ML BAG IV SCH ×2 (03:14→14:10)
[2019-08-17] MEDS: APRESOLINE PO SCH ×3 (06:08→21:04)
[2019-08-17] MEDS: NORCO 5/325 PO PRN ×3 (08:05→17:52)
--- NOTE | 2019-08-17 09:09 | Progress Note ---
Assessment and Plan Assessment and plan: Acute pulmonary edema. Continue diuresis with IV Lasix, afterload reduction wi th hydralazine and follow-up echocardiogram. Sepsis secondary to Acute mitral valve endocarditis with Enterococcus: TTE showed mitral valve vegetation. Appreciate Cardiology recs, no surgical intervention. -Picc line placed. discontinued Vancomycin. 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 -LP done, doubt meningitis, isolation discontinued - reports questionable orthopnea. Check chest x-ray. Acute encephalopathy secondary to Seizure precipitated by sepsis -Continue to monitor -Neurology consulted and input noted. Possible seizure rather than CVA also as evidenced by CT head, with no acute cva noted. Hypertension -Continue to monitor BP -cont. 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 Psychiatry nurse practitioner note reviewed: for outpatient follow-up DVT PPX -SCD's -start sq lovenox, d/w Heme/Onc Disposition. Discharge once IV abx arranged History Interval history: No new issues overnight. Hospitalist Physical - Constitutional Vitals: Temp Pulse Resp BP Pulse Ox 98.2 F 74 18 152/68 95 08/17/19 07:59 08/17/19 07:59 08/17/19 07:59 08/17/19 07:59 08/17/19 07:59 General appearance: Present: no acute distress - EENT Eyes: Present: PERRL, EOM intact ENT: hearing intact, clear oral mucosa, dentition normal - Neck Neck: Present: supple, normal ROM - Respiratory Respiratory effort: normal Respiratory: bilateral: CTA - Cardiovascular Rhythm: regular Heart Sounds: Present: S1 & S2. Absent: gallop, rub - Extremities Extremities: no ischemia, No edema, Full ROM - Abdominal General gastrointestinal: soft, non-tender, non-distended, normal bowel sounds - Integumentary Integumentary: Present: clear, warm, dry - Neurologic Neurologic: CNII-XII intact, moves all extremities Results - Labs CBC & Chem 7: 08/13/19 04:39 08/13/19 04:39 Labs: Laboratory Last Values WBC 4.1 K/mm3 (4.5-11.0) L 08/13/19 04:39 RBC 2.92 M/mm3 (3.65-5.03) L 08/13/19 04:39 Hgb 10.5 gm/dl (11.8-15.2) L 08/13/19 04:39 Hct 31.7 % (35.5-45.6) L 08/13/19 04:39 MCV 109 fl (84-94) H 08/13/19 04:39 MCH 36 pg (28-32) H 08/13/19 04:39 MCHC 33 % (32-34) 08/13/19 04:39 RDW 20.3 % (13.2-15.2) H 08/13/19 04:39 Plt Count 352 K/mm3 (140-440) 08/13/19 04:39 Lymph % (Auto) 39.5 % (13.4-35.0) H 08/13/19 04:39 [place] % (Auto) 11.7 % (0.0-7.3) H 08/13/19 04:39 Eos % (Auto) 6.4 % (0.0-4.3) H 08/13/19 04:39 Baso % (Auto) 1.8 % (0.0-1.8) 08/13/19 04:39 Lymph # 1.6 K/mm3 (1.2-5.4) 08/13/19 04:39 [place] # 0.5 K/mm3 (0.0-0.8) 08/13/19 04:39 Eos # 0.3 K/mm3 (0.0-0.4) 08/13/19 04:39 Baso # 0.1 K/mm3 (0.0-0.1) 08/13/19 04:39 Add Manual Diff Complete 07/29/19 00:42 Total Counted 100 07/29/19 00:42 Seg Neutrophils % 40.6 % (40.0-70.0) 08/13/19 04:39 Seg Neuts % (Manual) 82.0 % (40.0-70.0) H 07/29/19 00:42 Band Neutrophils % 0 % 07/29/19 00:42 Lymphocytes % (Manual) 16.0 % (13.4-35.0) 07/29/19 00:42 Reactive Lymphs % (Man) 0 % 07/29/19 00:42 Monocytes % (Manual) 1.0 % (0.0-7.3) 07/29/19 00:42 Eosinophils % (Manual) 0 % (0.0-4.3) 07/29/19 00:42 Basophils % (Manual) 1.0 % (0.0-1.8) 07/29/19 00:42 Metamyelocytes % 0 % 07/29/19 00:42 Myelocytes % 0 % 07/29/19 00:42 Promyelocytes % 0 % 07/29/19 00:42 Blast Cells % 0 % 07/29/19 00:42 Nucleated RBC % Not Reportable 07/29/19 00:42 Seg Neutrophils # 1.7 K/mm3 (1.8-7.7) L 08/13/19 04:39 Seg Neutrophils # Man 1.6 K/mm3 (1.8-7.7) L 07/29/19 00:42 Band Neutrophils # 0.0 K/mm3 07/29/19 00:42 Lymphocytes # (Manual) 0.3 K/mm3 (1.2-5.4) L 07/29/19 00:42 Abs React Lymphs (Man) 0.0 K/mm3 07/29/19 00:42 Monocytes # (Manual) 0.0 K/mm3 (0.0-0.8) 07/29/19 00:42 Eosinophils # (Manual) 0.0 K/mm3 (0.0-0.4) 07/29/19 00:42 Basophils # (Manual) 0.0 K/mm3 (0.0-0.1) 07/29/19 00:42 Metamyelocytes # 0.0 K/mm3 07/29/19 00:42 Myelocytes # 0.0 K/mm3 07/29/19 00:42 Promyelocytes # 0.0 K/mm3 07/29/19 00:42 Blast Cells # 0.0 K/mm3 07/29/19 00:42 WBC Morphology Not Reportable 07/29/19 00:42 Hypersegmented Neuts Not Reportable 07/29/19 00:42 Hyposegmented Neuts Not Reportable 07/29/19 00:42 Hypogranular Neuts Not Reportable 07/29/19 00:42 Smudge Cells Not Reportable 07/29/19 00:42 Toxic Granulation Not Reportable 07/29/19 00:42 Toxic Vacuolation Not Reportable 07/29/19 00:42 Dohle Bodies Not Reportable 07/29/19 00:42 Pelger-Huet Anomaly Not Reportable 07/29/19 00:42 Jorge A Rods Not Reportable 07/29/19 00:42 Platelet Estimate Not Reportable 07/29/19 00:42 Clumped Platelets Not Reportable 07/29/19 00:42 Plt Clumps, EDTA Not Reportable 07/29/19 00:42 Large Platelets Not Reportable 07/29/19 00:42 Giant Platelets Not Reportable 07/29/19 00:42 Platelet Satelliting Not Reportable 07/29/19 00:42 Plt Morphology Comment Not Reportable 07/29/19 00:42 RBC Morphology Not Reportable 07/29/19 00:42 Dimorphic RBCs Not Reportable 07/29/19 00:42 Polychromasia Not Reportable 07/29/19 00:42 Hypochromasia Not Reportable 07/29/19 00:42 Poikilocytosis Not Reportable 07/29/19 00:42 Anisocytosis 2+ 07/29/19 00:42 Microcytosis Not Reportable 07/29/19 00:42 Macrocytosis Not Reportable 07/29/19 00:42 Spherocytes Not Reportable 07/29/19 00:42 Pappenheimer Bodies Not Reportable 07/29/19 00:42 Sickle Cells Not Reportable 07/29/19 00:42 Target Cells Not Reportable 07/29/19 00:42 Tear Drop Cells Not Reportable 07/29/19 00:42 Ovalocytes Not Reportable 07/29/19 00:42 Helmet Cells Not Reportable 07/29/19 00:42 [place] Bodies Not Reportable 07/29/19 00:42 [place] Rings Not Reportable 07/29/19 00:42 [place] Cells Not Reportable 07/29/19 00:42 Bite Cells Not Reportable 07/29/19 00:42 Crenated Cell Not Reportable 07/29/19 00:42 Elliptocytes Not Reportable 07/29/19 00:42 Acanthocytes (Spur) Not Reportable 07/29/19 00:42 Rouleaux Not Reportable 07/29/19 00:42 Hemoglobin C Crystals Not Reportable 07/29/19 00:42 Schistocytes Not Reportable 07/29/19 00:42 Malaria parasites Not Reportable 07/29/19 00:42 Marco Bodies Not Reportable 07/29/19 00:42 Hem Pathologist Commnt No 07/29/19 00:42 PT 13.8 Sec. (12.2-14.9) 07/29/19 00:42 INR 1.09 (0.87-1.13) 07/29/19 00:42 APTT 26.5 Sec. (24.2-36.6) 07/29/19 00:42 Thrombin Time 17.2 Sec. (15.1-19.6) 07/29/19 00:42 D-Dimer 1354.97 ng/mlDDU (0-234) H 07/29/19 00:42 Sodium 140 mmol/L (137-145) 08/13/19 04:39 Potassium 3.9 mmol/L (3.6-5.0) 08/13/19 04:39 Chloride 101.9 mmol/L (98-107) 08/13/19 04:39 Carbon Dioxide 27 mmol/L (22-30) 08/13/19 04:39 Anion Gap 15 mmol/L 08/13/19 04:39 BUN 12 mg/dL (9-20) 08/13/19 04:39 Creatinine 0.8 mg/dL (0.8-1.5) 08/13/19 04:39 Estimated GFR > 60 ml/min 08/13/19 04:39 BUN/Creatinine Ratio 15 % 08/13/19 04:39 Glucose 108 mg/dL (75-100) H 08/13/19 04:39 POC Glucose 83 (70-105) 08/07/19 07:40 Lactic Acid 1.80 mmol/L (0.7-2.0) 07/29/19 12:58 Calcium 8.9 mg/dL (8.4-10.2) 08/13/19 04:39 Iron 82 ug/dL (49-181) 08/01/19 06:54 TIBC 224 mcg/dL (250-450) L 08/01/19 06:54 Ferritin 1110.0 ng/mL (13.0-400.0) H 08/01/19 06:54 Total Bilirubin 0.30 mg/dL (0.1-1.2) 08/13/19 04:39 AST 16 units/L (5-40) 08/13/19 04:39 ALT 11 units/L (7-56) 08/13/19 04:39 Alkaline Phosphatase 70 units/L (35-129) 08/13/19 04:39 Total Creatine Kinase 184 units/L (55-170) H 07/29/19 12:58 CK-MB (CK-2) 2.8 ng/mL (0.0-4.0) 07/29/19 12:58 CK-MB (CK-2) Rel Index 1.5 (0-4) 07/29/19 12:58 Troponin T 0.114 ng/mL (0.00-0.029) H* D 07/29/19 10:44 NT-Pro-B Natriuret Pep 1767 pg/mL (0-900) H 07/29/19 02:03 Total Protein 8.4 g/dL (6.3-8.2) H 08/13/19 04:39 Albumin 3.6 g/dL (3.9-5) L 08/13/19 04:39 Albumin/Globulin Ratio 0.8 % 08/13/19 04:39 Triglycerides TNR 07/29/19 00:42 Cholesterol TNR 07/29/19 00:42 LDL Cholesterol Direct TNR 07/29/19 00:42 HDL Cholesterol TNR 07/29/19 00:42 Cholesterol/HDL Ratio TNR 07/29/19 00:42 Vitamin B12 1858 pg/mL (211-911) H 08/01/19 06:54 Folate 15.28 ng/mL (7.3-26.0) 08/01/19 06:54 Urine Color Yellow (Yellow) 07/29/19 01:50 Urine Turbidity Slightly-cloudy (Clear) 07/29/19 01:50 Urine pH 5.0 (5.0-7.0) 07/29/19 01:50 Ur Specific [place] 1.017 (1.003-1.030) 07/29/19 01:50 Urine Protein 100 mg/dl mg/dL (Negative) 07/29/19 01:50 Urine Glucose (UA) Neg mg/dL (Negative) 07/29/19 01:50 Urine Ketones Neg mg/dL (Negative) 07/29/19 01:50 Urine Blood Mod (Negative) 07/29/19 01:50 Urine Nitrite Pos (Negative) 07/29/19 01:50 Urine Bilirubin Neg (Negative) 07/29/19 01:50 Urine Urobilinogen 2.0 mg/dL (<2.0) 07/29/19 01:50 Ur Leukocyte Esterase Tr (Negative) 07/29/19 01:50 Urine WBC (Auto) 10.0 /HPF (0.0-6.0) H 07/29/19 01:50 Urine RBC (Auto) 41.0 /HPF (0.0-6.0) 07/29/19 01:50 U Epithel Cells (Auto) 1.0 /HPF (0-13.0) 07/29/19 01:50 Urine Bacteria (Auto) 2+ /HPF (Negative) 07/29/19 01:50 Urine Mucus Few /HPF 07/29/19 01:50 CSF Appearance Clear 07/30/19 12:00 CSF Color Colorless 07/30/19 12:00 CSF WBC 3 /mm3 (1-10) 07/30/19 12:00 CSF RBC 75 /mm3 (0-0) 07/30/19 12:00 CSF Seg Neutrophils 5.6 % (0-6) 07/30/19 12:00 CSF Lymphocytes % 88.9 % (40-80) 07/30/19 12:00 CSF Reactive Lymphs 0 % 07/30/19 12:00 CSF Monocytes % 5.6 % (15-45) 07/30/19 12:00 CSF Eosinophils % 0 % 07/30/19 12:00 CSF Basophils 0 % 07/30/19 12:00 CSF Pathologist Review C 07/30/19 12:00 CSF Glucose 64 mg/dL 07/30/19 12:00 CSF Total Protein 31 mg/dL 07/30/19 12:00 CSF VDRL Nonreactive (Nonreactive) 07/30/19 12:00 Vancomycin Trough 19.6 ug/mL (5.0-20.0) 08/01/19 07:50 Active Medications - Current Medications Current Medications: Generic Name Dose Route Start Last Admin Trade Name Freq PRN Reason Stop Dose Admin Acetaminophen 650 mg 07/29/19 05:29 Tylenol PO Q4H PRN Pain, Mild (1-3), fever 100.5> Acetaminophen/Hydrocodone Bitart 1 each 07/29/19 21:50 08/02/19 10:44 [place] 5/325 PO 1 each Q4H PRN Administration Pain, Moderate (4-6) Albuterol 2.5 mg 08/10/19 02:48 08/11/19 17:54 Proventil IH 2.5 mg Q4HRT PRN Administration Shortness Of Breath Lipase/Protease/Amylase 1 each 08/14/19 10:[address] 10,500 Unit FEEDTUBE PRN PRN For Clogged Feeding Tube Aspirin 325 mg 07/29/19 10:00 08/16/19 09:20 Aspirin PO 325 mg QDAY LESLIE Administration Atorvastatin Calcium 80 mg 07/29/19 22:00 08/16/19 21:40 Lipitor PO 80 mg QHS LESLIE Administration Bisacodyl 10 mg 07/29/19 05:29 Dulcolax [place] QDAY PRN Constipation Enoxaparin Sodium 40 mg 08/08/19 10:00 08/16/19 21:42 Lovenox SUB-Q 40 mg QDAY@2200 LESLIE Administration Furosemide 20 mg 08/16/19 12:00 08/16/19 14:33 Lasix IV 20 mg QDAY LESLIE Administration Hydralazine HCl 10 mg 08/01/19 05:00 08/17/19 00:01 Apresoline IV 10 mg Q4HR PRN Administration Hypertension Hydralazine HCl 25 mg 08/16/19 14:00 08/17/19 06:08 Apresoline PO 25 mg Q8HR LESLIE Administration Hydroxyurea 500 mg 08/03/19 15:00 08/15/19 10:58 Hydrea PO 500 mg TuThSa@1000 LESLIE Administration Ampicillin Sodium 2 gm in 100 mls @ 100 mls/hr 08/05/19 10:00 08/17/19 06:39 Ampicillin/Ns 2 Gm/100 Ml IV 09/10/19 23:59 100 mls/hr Q4H LESLIE Administration Ceftriaxone Sodium 2 gm in 100 mls @ 200 mls/hr 08/15/19 15:00 08/17/19 03:14 Rocephin/Ns 2 Gm/100 Ml IV 09/10/19 23:59 200 mls/hr Q12H LESLIE Administration Protocol Lisinopril 30 mg 08/14/19 10:00 08/16/19 09:20 Zestril PO 30 mg QDAY LESLIE Administration Lorazepam 1 mg 07/29/19 06:42 08/14/19 06:27 Ativan IV 1 mg Q4H PRN Administration Seizures Magnesium Hydroxide 30 ml 07/29/19 05:29 Milk Of Magnesia PO Q4H PRN Constipation Metoprolol Tartrate 50 mg 07/29/19 10:00 08/16/19 21:41 Lopressor PO 50 mg BID LESLIE Administration Ondansetron HCl 4 mg 07/29/19 05:29 08/10/19 10:49 Zofran IV 4 mg Q6H PRN Administration Nausea And Vomiting Simple Syrup 15 ml 08/14/19 10:45 Simple Syrup FEEDTUBE PRN PRN Hypoglycemia Simple Syrup 30 ml 08/14/19 10:45 Simple Syrup FEEDTUBE PRN PRN Hypoglycemia Sodium Bicarbonate 325 mg 08/14/19 10:45 Sodium Bicarbonate FEEDTUBE PRN PRN For Clogged Feeding Tube Sodium Chloride 10 ml 07/29/19 05:29 08/16/19 21:40 Sodium Chloride Flush Syringe 10 Ml IV 10 ml PRN PRN Administration LINE FLUSH Nutrition/Malnutrition Assess - Dietary Evaluation Nutrition/Malnutrition Findings: Nutrition Notes Start: 07/29/19 14:00 Freq: Status: Active Protocol: Document 08/16/19 11:27 PS (Rec: 08/16/19 12:23 PS [id number]) Co-Sign 08/16/19 11:27 LP Nutrition Notes Initial or Follow up Reassessment Current Diagnosis COPD,Sepsis,Hypertension, Hyperlipidemia Other Pertinent Diagnosis Hx CVA X 2, Nonverbal,UTI,Pneu , Acute encephalopathy, Suspicion of seizure Current Diet Pureed Cardiac Diet, Overnight TF Labs/Tests Reviewed Pertinent Medications Reviewed Height 5 ft 9 in Weight 82.7 kg [place] Body Weight (kg) 72.72 BMI 26.9 Subjective/Other Information Pt recieved overnight TF of Jevity 1.2 at 75 ml/hr. Pt. was out of bed and sitting in chair during visit. Pt. recieved trays from hospital. Pt. in room during visit and feeding pt. States pt. does have appetite, but does not like the hospital food. states she brings in food from home. States he eats all of his solid food when she brings it in and has no trouble eating it. asked MD to meet with [facility] for update with swallowing difficulty because he has been eating solid food for months. Percent of energy/protein needs met: 80%/88% Burn Absent Trauma Absent Minimum of two criteria No #1 Nutrition Diagnosis Inadequate oral intake As Evidenced by Signs and Symptoms Pt. 25% of food from hospital and more from home. Diagnosis Progress(for reassessment Improved documentation) Is patient on ventilator? No Is Patient Ambulatory and/or Out of Bed Yes REE-([place]-ambulatory/OOB) [ 2161.094 [id number]] Kcal/Kg value to use for calculation 25 Approximate Energy Requirements Using 2067 kcal/Kg Calculation Used for Recommendations Kcal/kg Additional Notes PRO: 81-97g (1-1.2g/kg/day) Fluid: 1mL/kcal Nutrition Intervention Change Diet Order: Continue current diet Nutrition Support: Initate Jevity 1.2 at 75 ml/h from 7 p to 7 a with 120 ml water flushes q 4 h Kcal 1,080 Protein (gm) 50 Fluid (mL) 726 Goal #1 Meet at least 75% of energy/ PRO needs via PO and cyclic TF . Anticipated Discharge Needs: Cardiac Diet Follow-Up By: 08/21/19 Additional Comments FU for PO intakes and TF tolerance
[2019-08-17] MEDS: ASPIRIN PO SCH (10:38)
[2019-08-17] MEDS: METOPROLOL PO SCH ×2 (10:38→21:04)
[2019-08-17] MEDS: LASIX IV SCH (10:38)
[2019-08-17] MEDS: ZESTRIL PO SCH (10:38)
[2019-08-17] MEDS: HYDROXYUREA PO SCH ×2 (10:39→10:40)
[2019-08-17] MEDS: SODIUM CHLORIDE FLUSH SYRINGE 10 ML IV PRN (10:39)
--- NOTE | 2019-08-17 11:30 | Progress Note ---
Subjective Date of service: 08/17/19 Principal diagnosis: CMPD Interval history: Enterococcal sepsis Acute mitral valve endocarditis with moderate eccentric mitral regurgitation Blood cultures 07/30/2019 - NGTD Moderate to severe eccentric aortic regurgitation noted Volume overload on exam noted with distended neck veins and rales over the LLL Hx of COPD Hypertension Prior CVA Elevation of troponin ECG is sinus tachycardia, no acute ischemic changes. Patient is currently not on tele Recommend: No new changes, Echo negative for diastolic flow reversal in aorta, AI not severe. Continue Abx per ID recommendations Will continue to follow Objective Vital Signs Temp Pulse Resp BP BP Pulse Ox 08/17/19 07:59 98.2 F 74 18 152/68 95 08/17/19 06:08 72 131/85 08/17/19 04:06 98.0 F 72 14 131/85 97 08/17/19 00:01 78 162/82 08/16/19 23:51 98.0 F 78 14 162/82 95 08/16/19 22:00 16 98 08/16/19 21:41 68 131/82 08/16/19 21:34 98.4 F 75 16 131/82 95 08/16/19 21:10 98.4 F 77 16 131/82 97 08/16/19 21:08 79 98 08/16/19 17:11 98.3 F 83 20 140/86 95 08/16/19 14:31 74 139/70 08/16/19 12:10 98.8 F 74 20 139/70 97 - Physical Examination General: No Apparent Distress HEENT: Positive: PERRL Neck: Positive: trachea midline, JVD/HJR Cardiac: Positive: Reg Rate and Rhythm, S1/S2, Systolic Murmur, Diastolic Murmur Lungs: Positive: Normal Exam Neuro: Positive: Weakness Abdomen: Positive: Active Bowel Sounds Skin: Positive: Clear Extremities: Absent: edema
--- NOTE | 2019-08-17 13:56 | Hem/Onc Progress Note ---
Assessment and Plan 1. h/o Unresponsiveness, history of fever. ID team following. 2. JAK2 mutation. The patient was on hydroxyurea, white cell count was low, Hydrea had been held. 3. History of chronic obstructive pulmonary disease. 4. History of hypertension. 5. History of hyperlipidemia. 6. History of cerebrovascular accident. 7. History of left renal cell cancer removal. 8. V/Q scan is negative for pulmonary embolism. 9. Lumbar puncture done 10. I will follow the patient during inpatient stay. pt awake - but speech slurred follows command of moving legs and opening mouth as per old notes - pt had been with Dr Frankel He was admitted to [facility] in feb 2019 - with CVA ID - Infective endocardititis 08/17 pt was on hydrea for CMPD - this was held as WBC was low restarted hydrea at a lower frequency WBC fluctuating as he was walking away from the hospital - he is being watched placement planned - Patient Problems (1) Myeloproliferative disease Current Visit: No Status: Acute Subjective Date of service: 08/17/19 Principal diagnosis: cmpd Interval history: no bleeding Objective - Exam Narrative Exam: Pain - n/a General appearance - awake - but slurred speech Performance status complete dependence Eyes - no icterus ENT - no bleeding LNs cervical not palpable Neck - no LN Respiratory Normal Breath sounds - CTA anteriorly CVS S1 S2 + Extremities no calf tenderness General GI Soft - PEG + Rectal deferred male - deferred Skin warm Musculoskeletal moving extremitites Neurologically awake - slurred speech - Constitutional Vitals: Last Vital Signs Temp 98.7 F 08/17/19 11:19 Pulse 82 08/17/19 11:19 Resp 20 08/17/19 11:19 BP 176/77 08/17/19 11:19 Pulse Ox 97 08/17/19 11:19 Medications & Allergies - Medications Allergies/Adverse Reactions: Allergies No Known Allergies Allergy (Unverified 07/17/14 19:25) Home Medications: Home Medications Medication Instructions Recorded Confirmed Last Taken Type Metoprolol Tartrate 50 mg PO BID 03/05/19 07/29/19 07/28/19 History QUEtiapine 50 mg PO DAILY 03/05/19 07/29/19 Unknown History Aspirin 325 mg PO QDAY tablet 03/11/19 07/29/19 07/29/19 17:39 Rx AtorvaSTATin [Lipitor] 80 mg PO QHS tablet 03/11/19 07/29/19 Unknown Rx Lisinopril [Zestril TAB] 20 mg PO QDAY tablet 03/11/19 07/29/19 Unknown Rx traZODone [Desyrel] 50 mg PO QDAY PRN tablet 03/11/19 07/29/19 Unknown Rx Hydroxyurea [Hydrea] 500 mg PO TuThSa@1000 #30 capsule 08/05/19 Unknown Rx Active Medications: Generic Name Dose Route Start Last Admin Trade Name Freq PRN Reason Stop Dose Admin Acetaminophen 650 mg 07/29/19 05:29 Tylenol PO Q4H PRN Pain, Mild (1-3), fever 100.5> Acetaminophen/Hydrocodone Bitart 1 each 07/29/19 21:50 08/17/19 08:05 [place] 5/325 PO 1 each Q4H PRN Administration Pain, Moderate (4-6) Albuterol 2.5 mg 08/10/19 02:48 08/11/19 17:54 Proventil IH 2.5 mg Q4HRT PRN Administration Shortness Of Breath Lipase/Protease/Amylase 1 each 08/14/19 10:[address] 10,500 Unit FEEDTUBE PRN PRN For Clogged Feeding Tube Aspirin 325 mg 07/29/19 10:00 08/17/19 10:38 Aspirin PO 325 mg QDAY LESLIE Administration Atorvastatin Calcium 80 mg 07/29/19 22:00 08/16/19 21:40 Lipitor PO 80 mg QHS LESLIE Administration Bisacodyl 10 mg 07/29/19 05:29 Dulcolax [place] QDAY PRN Constipation Enoxaparin Sodium 40 mg 08/08/19 10:00 08/16/19 21:42 Lovenox SUB-Q 40 mg QDAY@2200 LESLIE Administration Furosemide 20 mg 08/16/19 12:00 08/17/19 10:38 Lasix IV 20 mg QDAY LESLIE Administration Hydralazine HCl 10 mg 08/01/19 05:00 08/17/19 00:01 Apresoline IV 10 mg Q4HR PRN Administration Hypertension Hydralazine HCl 25 mg 08/16/19 14:00 08/17/19 06:08 Apresoline PO 25 mg Q8HR LESLIE Administration Hydroxyurea 500 mg 08/03/19 15:00 08/17/19 10:40 Hydrea PO Not Given TuThSa@1000 LESLIE Ampicillin Sodium 2 gm in 100 mls @ 100 mls/hr 08/05/19 10:00 08/17/19 10:37 Ampicillin/Ns 2 Gm/100 Ml IV 09/10/19 23:59 100 mls/hr Q4H LESLIE Administration Ceftriaxone Sodium 2 gm in 100 mls @ 200 mls/hr 08/15/19 15:00 08/17/19 03:14 Rocephin/Ns 2 Gm/100 Ml IV 09/10/19 23:59 200 mls/hr Q12H LESLIE Administration Protocol Lisinopril 30 mg 08/14/19 10:00 08/17/19 10:38 Zestril PO 30 mg QDAY LESLIE Administration Lorazepam 1 mg 07/29/19 06:42 08/14/19 06:27 Ativan IV 1 mg Q4H PRN Administration Seizures Magnesium Hydroxide 30 ml 07/29/19 05:29 Milk Of Magnesia PO Q4H PRN Constipation Metoprolol Tartrate 50 mg 07/29/19 10:00 08/17/19 10:38 Lopressor PO 50 mg BID LESLIE Administration Ondansetron HCl 4 mg 07/29/19 05:29 08/10/19 10:49 Zofran IV 4 mg Q6H PRN Administration Nausea And Vomiting Simple Syrup 15 ml 08/14/19 10:45 Simple Syrup FEEDTUBE PRN PRN Hypoglycemia Simple Syrup 30 ml 08/14/19 10:45 Simple Syrup FEEDTUBE PRN PRN Hypoglycemia Sodium Bicarbonate 325 mg 08/14/19 10:45 Sodium Bicarbonate FEEDTUBE PRN PRN For Clogged Feeding Tube Sodium Chloride 10 ml 07/29/19 05:29 08/17/19 10:39 Sodium Chloride Flush Syringe 10 Ml IV 10 ml PRN PRN Administration LINE FLUSH
[2019-08-17] MEDS: ENOXAPARIN SUB-Q SCH (21:05)
[2019-08-18] MEDS: AMPICILLIN/NS 2 GM/100 ML 2 GM/100 ML BAG IV SCH ×6 (02:42→21:42)
[2019-08-18] MEDS: ROCEPHIN/NS 2 GM/100 ML 2 GM/100 ML BAG IV SCH ×2 (03:51→14:34)
[2019-08-18] MEDS: APRESOLINE PO SCH ×3 (05:09→21:40)
--- NOTE | 2019-08-18 09:49 | Progress Note ---
Assessment and Plan Assessment and plan: Acute pulmonary edema. Continue diuresis with IV Lasix, afterload reduction wi th hydralazine and echocardiogram negative for diastolic flow reversal and aorta. Aortic insufficiency not severe per cardiology. Sepsis secondary to Acute mitral valve endocarditis with Enterococcus: TTE showed mitral valve vegetation. Appreciate Cardiology recs, no surgical intervention. -Picc line placed. discontinued Vancomycin. 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 -LP done, doubt meningitis, isolation discontinued - reports questionable orthopnea. Check chest x-ray. Acute encephalopathy secondary to Seizure precipitated by sepsis -Continue to monitor -Neurology consulted and input noted. Possible seizure rather than CVA also as evidenced by CT head, with no acute cva noted. Hypertension -Continue to monitor BP -cont. 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 Psychiatry nurse practitioner note reviewed: for outpatient follow-up DVT PPX -SCD's -start sq lovenox, d/w Heme/Onc Disposition. Discharge once IV abx arranged History Interval history: No new issues overnight. Hospitalist Physical - Constitutional Vitals: Temp Pulse Resp BP Pulse Ox 99.0 F 78 20 130/83 99 08/18/19 07:56 08/18/19 07:56 08/18/19 07:56 08/18/19 07:56 08/18/19 07:56 General appearance: Present: no acute distress - EENT Eyes: Present: PERRL, EOM intact ENT: hearing intact, clear oral mucosa, dentition normal - Neck Neck: Present: supple, normal ROM - Respiratory Respiratory effort: normal Respiratory: bilateral: CTA - Cardiovascular Rhythm: regular Heart Sounds: Present: S1 & S2. Absent: gallop, rub - Extremities Extremities: no ischemia, No edema, Full ROM - Abdominal General gastrointestinal: soft, non-tender, non-distended, normal bowel sounds - Integumentary Integumentary: Present: clear, warm, dry - Neurologic Neurologic: CNII-XII intact, moves all extremities Results - Labs CBC & Chem 7: 08/13/19 04:39 08/13/19 04:39 Labs: Laboratory Last Values WBC 4.1 K/mm3 (4.5-11.0) L 08/13/19 04:39 RBC 2.92 M/mm3 (3.65-5.03) L 08/13/19 04:39 Hgb 10.5 gm/dl (11.8-15.2) L 08/13/19 04:39 Hct 31.7 % (35.5-45.6) L 08/13/19 04:39 MCV 109 fl (84-94) H 08/13/19 04:39 MCH 36 pg (28-32) H 08/13/19 04:39 MCHC 33 % (32-34) 08/13/19 04:39 RDW 20.3 % (13.2-15.2) H 08/13/19 04:39 Plt Count 352 K/mm3 (140-440) 08/13/19 04:39 Lymph % (Auto) 39.5 % (13.4-35.0) H 08/13/19 04:39 [place] % (Auto) 11.7 % (0.0-7.3) H 08/13/19 04:39 Eos % (Auto) 6.4 % (0.0-4.3) H 08/13/19 04:39 Baso % (Auto) 1.8 % (0.0-1.8) 08/13/19 04:39 Lymph # 1.6 K/mm3 (1.2-5.4) 08/13/19 04:39 [place] # 0.5 K/mm3 (0.0-0.8) 08/13/19 04:39 Eos # 0.3 K/mm3 (0.0-0.4) 08/13/19 04:39 Baso # 0.1 K/mm3 (0.0-0.1) 08/13/19 04:39 Add Manual Diff Complete 07/29/19 00:42 Total Counted 100 07/29/19 00:42 Seg Neutrophils % 40.6 % (40.0-70.0) 08/13/19 04:39 Seg Neuts % (Manual) 82.0 % (40.0-70.0) H 07/29/19 00:42 Band Neutrophils % 0 % 07/29/19 00:42 Lymphocytes % (Manual) 16.0 % (13.4-35.0) 07/29/19 00:42 Reactive Lymphs % (Man) 0 % 07/29/19 00:42 Monocytes % (Manual) 1.0 % (0.0-7.3) 07/29/19 00:42 Eosinophils % (Manual) 0 % (0.0-4.3) 07/29/19 00:42 Basophils % (Manual) 1.0 % (0.0-1.8) 07/29/19 00:42 Metamyelocytes % 0 % 07/29/19 00:42 Myelocytes % 0 % 07/29/19 00:42 Promyelocytes % 0 % 07/29/19 00:42 Blast Cells % 0 % 07/29/19 00:42 Nucleated RBC % Not Reportable 07/29/19 00:42 Seg Neutrophils # 1.7 K/mm3 (1.8-7.7) L 08/13/19 04:39 Seg Neutrophils # Man 1.6 K/mm3 (1.8-7.7) L 07/29/19 00:42 Band Neutrophils # 0.0 K/mm3 07/29/19 00:42 Lymphocytes # (Manual) 0.3 K/mm3 (1.2-5.4) L 07/29/19 00:42 Abs React Lymphs (Man) 0.0 K/mm3 07/29/19 00:42 Monocytes # (Manual) 0.0 K/mm3 (0.0-0.8) 07/29/19 00:42 Eosinophils # (Manual) 0.0 K/mm3 (0.0-0.4) 07/29/19 00:42 Basophils # (Manual) 0.0 K/mm3 (0.0-0.1) 07/29/19 00:42 Metamyelocytes # 0.0 K/mm3 07/29/19 00:42 Myelocytes # 0.0 K/mm3 07/29/19 00:42 Promyelocytes # 0.0 K/mm3 07/29/19 00:42 Blast Cells # 0.0 K/mm3 07/29/19 00:42 WBC Morphology Not Reportable 07/29/19 00:42 Hypersegmented Neuts Not Reportable 07/29/19 00:42 Hyposegmented Neuts Not Reportable 07/29/19 00:42 Hypogranular Neuts Not Reportable 07/29/19 00:42 Smudge Cells Not Reportable 07/29/19 00:42 Toxic Granulation Not Reportable 07/29/19 00:42 Toxic Vacuolation Not Reportable 07/29/19 00:42 Dohle Bodies Not Reportable 07/29/19 00:42 Pelger-Huet Anomaly Not Reportable 07/29/19 00:42 Jorge A Rods Not Reportable 07/29/19 00:42 Platelet Estimate Not Reportable 07/29/19 00:42 Clumped Platelets Not Reportable 07/29/19 00:42 Plt Clumps, EDTA Not Reportable 07/29/19 00:42 Large Platelets Not Reportable 07/29/19 00:42 Giant Platelets Not Reportable 07/29/19 00:42 Platelet Satelliting Not Reportable 07/29/19 00:42 Plt Morphology Comment Not Reportable 07/29/19 00:42 RBC Morphology Not Reportable 07/29/19 00:42 Dimorphic RBCs Not Reportable 07/29/19 00:42 Polychromasia Not Reportable 07/29/19 00:42 Hypochromasia Not Reportable 07/29/19 00:42 Poikilocytosis Not Reportable 07/29/19 00:42 Anisocytosis 2+ 07/29/19 00:42 Microcytosis Not Reportable 07/29/19 00:42 Macrocytosis Not Reportable 07/29/19 00:42 Spherocytes Not Reportable 07/29/19 00:42 Pappenheimer Bodies Not Reportable 07/29/19 00:42 Sickle Cells Not Reportable 07/29/19 00:42 Target Cells Not Reportable 07/29/19 00:42 Tear Drop Cells Not Reportable 07/29/19 00:42 Ovalocytes Not Reportable 07/29/19 00:42 Helmet Cells Not Reportable 07/29/19 00:42 Antunez-Brundage Bodies Not Reportable 07/29/19 00:42 [place] Rings Not Reportable 07/29/19 00:42 [place] Cells Not Reportable 07/29/19 00:42 Bite Cells Not Reportable 07/29/19 00:42 Crenated Cell Not Reportable 07/29/19 00:42 Elliptocytes Not Reportable 07/29/19 00:42 Acanthocytes (Spur) Not Reportable 07/29/19 00:42 Rouleaux Not Reportable 07/29/19 00:42 Hemoglobin C Crystals Not Reportable 07/29/19 00:42 Schistocytes Not Reportable 07/29/19 00:42 Malaria parasites Not Reportable 07/29/19 00:42 Marco Bodies Not Reportable 07/29/19 00:42 Hem Pathologist Commnt No 07/29/19 00:42 PT 13.8 Sec. (12.2-14.9) 07/29/19 00:42 INR 1.09 (0.87-1.13) 07/29/19 00:42 APTT 26.5 Sec. (24.2-36.6) 07/29/19 00:42 Thrombin Time 17.2 Sec. (15.1-19.6) 07/29/19 00:42 D-Dimer 1354.97 ng/mlDDU (0-234) H 07/29/19 00:42 Sodium 140 mmol/L (137-145) 08/13/19 04:39 Potassium 3.9 mmol/L (3.6-5.0) 08/13/19 04:39 Chloride 101.9 mmol/L (98-107) 08/13/19 04:39 Carbon Dioxide 27 mmol/L (22-30) 08/13/19 04:39 Anion Gap 15 mmol/L 08/13/19 04:39 BUN 12 mg/dL (9-20) 08/13/19 04:39 Creatinine 0.8 mg/dL (0.8-1.5) 08/13/19 04:39 Estimated GFR > 60 ml/min 08/13/19 04:39 BUN/Creatinine Ratio 15 % 08/13/19 04:39 Glucose 108 mg/dL (75-100) H 08/13/19 04:39 POC Glucose 83 (70-105) 08/07/19 07:40 Lactic Acid 1.80 mmol/L (0.7-2.0) 07/29/19 12:58 Calcium 8.9 mg/dL (8.4-10.2) 08/13/19 04:39 Iron 82 ug/dL (49-181) 08/01/19 06:54 TIBC 224 mcg/dL (250-450) L 08/01/19 06:54 Ferritin 1110.0 ng/mL (13.0-400.0) H 08/01/19 06:54 Total Bilirubin 0.30 mg/dL (0.1-1.2) 08/13/19 04:39 AST 16 units/L (5-40) 08/13/19 04:39 ALT 11 units/L (7-56) 08/13/19 04:39 Alkaline Phosphatase 70 units/L (35-129) 08/13/19 04:39 Total Creatine Kinase 184 units/L (55-170) H 07/29/19 12:58 CK-MB (CK-2) 2.8 ng/mL (0.0-4.0) 07/29/19 12:58 CK-MB (CK-2) Rel Index 1.5 (0-4) 07/29/19 12:58 Troponin T 0.114 ng/mL (0.00-0.029) H* D 07/29/19 10:44 NT-Pro-B Natriuret Pep 1767 pg/mL (0-900) H 07/29/19 02:03 Total Protein 8.4 g/dL (6.3-8.2) H 08/13/19 04:39 Albumin 3.6 g/dL (3.9-5) L 08/13/19 04:39 Albumin/Globulin Ratio 0.8 % 08/13/19 04:39 Triglycerides TNR 07/29/19 00:42 Cholesterol TNR 07/29/19 00:42 LDL Cholesterol Direct TNR 07/29/19 00:42 HDL Cholesterol TNR 07/29/19 00:42 Cholesterol/HDL Ratio TNR 07/29/19 00:42 Vitamin B12 1858 pg/mL (211-911) H 08/01/19 06:54 Folate 15.28 ng/mL (7.3-26.0) 08/01/19 06:54 Urine Color Yellow (Yellow) 07/29/19 01:50 Urine Turbidity Slightly-cloudy (Clear) 07/29/19 01:50 Urine pH 5.0 (5.0-7.0) 07/29/19 01:50 Ur Specific [place] 1.017 (1.003-1.030) 07/29/19 01:50 Urine Protein 100 mg/dl mg/dL (Negative) 07/29/19 01:50 Urine Glucose (UA) Neg mg/dL (Negative) 07/29/19 01:50 Urine Ketones Neg mg/dL (Negative) 07/29/19 01:50 Urine Blood Mod (Negative) 07/29/19 01:50 Urine Nitrite Pos (Negative) 07/29/19 01:50 Urine Bilirubin Neg (Negative) 07/29/19 01:50 Urine Urobilinogen 2.0 mg/dL (<2.0) 07/29/19 01:50 Ur Leukocyte Esterase Tr (Negative) 07/29/19 01:50 Urine WBC (Auto) 10.0 /HPF (0.0-6.0) H 07/29/19 01:50 Urine RBC (Auto) 41.0 /HPF (0.0-6.0) 07/29/19 01:50 U Epithel Cells (Auto) 1.0 /HPF (0-13.0) 07/29/19 01:50 Urine Bacteria (Auto) 2+ /HPF (Negative) 07/29/19 01:50 Urine Mucus Few /HPF 07/29/19 01:50 CSF Appearance Clear 07/30/19 12:00 CSF Color Colorless 07/30/19 12:00 CSF WBC 3 /mm3 (1-10) 07/30/19 12:00 CSF RBC 75 /mm3 (0-0) 07/30/19 12:00 CSF Seg Neutrophils 5.6 % (0-6) 07/30/19 12:00 CSF Lymphocytes % 88.9 % (40-80) 07/30/19 12:00 CSF Reactive Lymphs 0 % 07/30/19 12:00 CSF Monocytes % 5.6 % (15-45) 07/30/19 12:00 CSF Eosinophils % 0 % 07/30/19 12:00 CSF Basophils 0 % 07/30/19 12:00 CSF Pathologist Review C 07/30/19 12:00 CSF Glucose 64 mg/dL 07/30/19 12:00 CSF Total Protein 31 mg/dL 07/30/19 12:00 CSF VDRL Nonreactive (Nonreactive) 07/30/19 12:00 Vancomycin Trough 19.6 ug/mL (5.0-20.0) 08/01/19 07:50 Active Medications - Current Medications Current Medications: Generic Name Dose Route Start Last Admin Trade Name Freq PRN Reason Stop Dose Admin Acetaminophen 650 mg 07/29/19 05:29 Tylenol PO Q4H PRN Pain, Mild (1-3), fever 100.5> Acetaminophen/Hydrocodone Bitart 1 each 07/29/19 21:50 08/17/19 17:52 [place] 5/325 PO 1 each Q4H PRN Administration Pain, Moderate (4-6) Albuterol 2.5 mg 08/10/19 02:48 08/11/19 17:54 Proventil IH 2.5 mg Q4HRT PRN Administration Shortness Of Breath Lipase/Protease/Amylase 1 each 08/14/19 10:[address] 10,500 Unit FEEDTUBE PRN PRN For Clogged Feeding Tube Aspirin 325 mg 07/29/19 10:00 08/17/19 10:38 Aspirin PO 325 mg QDAY LESLIE Administration Atorvastatin Calcium 80 mg 07/29/19 22:00 08/17/19 21:03 Lipitor PO 80 mg QHS LESLIE Administration Bisacodyl 10 mg 07/29/19 05:29 Dulcolax [place] QDAY PRN Constipation Enoxaparin Sodium 40 mg 08/08/19 10:00 08/17/19 21:05 Lovenox SUB-Q 40 mg QDAY@2200 LESLIE Administration Furosemide 20 mg 08/16/19 12:00 08/17/19 10:38 Lasix IV 20 mg QDAY LESLIE Administration Hydralazine HCl 10 mg 08/01/19 05:00 08/17/19 00:01 Apresoline IV 10 mg Q4HR PRN Administration Hypertension Hydralazine HCl 25 mg 08/16/19 14:00 08/18/19 05:09 Apresoline PO 25 mg Q8HR LESLIE Administration Hydroxyurea 500 mg 08/03/19 15:00 08/17/19 10:40 Hydrea PO Not Given TuThSa@1000 LESLIE Ampicillin Sodium 2 gm in 100 mls @ 100 mls/hr 08/05/19 10:00 08/18/19 05:07 Ampicillin/Ns 2 Gm/100 Ml IV 09/10/19 23:59 100 mls/hr Q4H LESLIE Administration Ceftriaxone Sodium 2 gm in 100 mls @ 200 mls/hr 08/15/19 15:00 08/18/19 03:51 Rocephin/Ns 2 Gm/100 Ml IV 09/10/19 23:59 200 mls/hr Q12H LESLIE Administration Protocol Lisinopril 30 mg 08/14/19 10:00 08/17/19 10:38 Zestril PO 30 mg QDAY LESLIE Administration Lorazepam 1 mg 07/29/19 06:42 08/14/19 06:27 Ativan IV 1 mg Q4H PRN Administration Seizures Magnesium Hydroxide 30 ml 07/29/19 05:29 Milk Of Magnesia PO Q4H PRN Constipation Metoprolol Tartrate 50 mg 07/29/19 10:00 08/17/19 21:04 Lopressor PO 50 mg BID LESLIE Administration Ondansetron HCl 4 mg 07/29/19 05:29 08/10/19 10:49 Zofran IV 4 mg Q6H PRN Administration Nausea And Vomiting Simple Syrup 15 ml 08/14/19 10:45 Simple Syrup FEEDTUBE PRN PRN Hypoglycemia Simple Syrup 30 ml 08/14/19 10:45 Simple Syrup FEEDTUBE PRN PRN Hypoglycemia Sodium Bicarbonate 325 mg 08/14/19 10:45 Sodium Bicarbonate FEEDTUBE PRN PRN For Clogged Feeding Tube Sodium Chloride 10 ml 07/29/19 05:29 08/17/19 10:39 Sodium Chloride Flush Syringe 10 Ml IV 10 ml PRN PRN Administration LINE FLUSH Nutrition/Malnutrition Assess - Dietary Evaluation Nutrition/Malnutrition Findings: Nutrition Notes Start: 07/29/19 14:00 Freq: Status: Active Protocol: Document 08/16/19 11:27 PS (Rec: 08/16/19 12:23 PS [id number]) Co-Sign 08/16/19 11:27 LP Nutrition Notes Initial or Follow up Reassessment Current Diagnosis COPD,Sepsis,Hypertension, Hyperlipidemia Other Pertinent Diagnosis Hx CVA X 2, Nonverbal,UTI,Pneu , Acute encephalopathy, Suspicion of seizure Current Diet Pureed Cardiac Diet, Overnight TF Labs/Tests Reviewed Pertinent Medications Reviewed Height 5 ft 9 in Weight 82.7 kg [place] Body Weight (kg) 72.72 BMI 26.9 Subjective/Other Information Pt recieved overnight TF of Jevity 1.2 at 75 ml/hr. Pt. was out of bed and sitting in chair during visit. Pt. recieved trays from hospital. Pt. in room during visit and feeding pt. States pt. does have appetite, but does not like the hospital food. states she brings in food from home. States he eats all of his solid food when she brings it in and has no trouble eating it. asked MD to meet with [employer] for update with swallowing difficulty because he has been eating solid food for months. Percent of energy/protein needs met: 80%/88% Burn Absent Trauma Absent Minimum of two criteria No #1 Nutrition Diagnosis Inadequate oral intake As Evidenced by Signs and Symptoms Pt. 25% of food from hospital and more from home. Diagnosis Progress(for reassessment Improved documentation) Is patient on ventilator? No Is Patient Ambulatory and/or Out of Bed Yes REE-([facility]-ambulatory/OOB) [ 2161.094 [id number]] Kcal/Kg value to use for calculation 25 Approximate Energy Requirements Using 8 kcal/Kg Calculation Used for Recommendations Kcal/kg Additional Notes PRO: 81-97g (1-1.2g/kg/day) Fluid: 1mL/kcal Nutrition Intervention Change Diet Order: Continue current diet Nutrition Support: Initate Jevity 1.2 at 75 ml/h from 7 p to 7 a with 120 ml water flushes q 4 h Kcal 1,080 Protein (gm) 50 Fluid (mL) 726 Goal #1 Meet at least 75% of energy/ PRO needs via PO and cyclic TF . Anticipated Discharge Needs: Cardiac Diet Follow-Up By: 08/21/19 Additional Comments FU for PO intakes and TF tolerance
[2019-08-18] MEDS: LASIX IV SCH (11:16)
[2019-08-18] MEDS: ZESTRIL PO SCH (11:17)
[2019-08-18] MEDS: ASPIRIN PO SCH (11:18)
[2019-08-18] MEDS: METOPROLOL PO SCH ×2 (11:19→21:40)
[2019-08-18] MEDS: HYDROXYUREA PO SCH (11:25)
--- NOTE | 2019-08-18 15:24 | Progress Note ---
Subjective Date of service: 08/18/19 Principal diagnosis: cmpd Interval history: Subjective Date of service: 08/17/19 Principal diagnosis: CMPD Interval history: Enterococcal sepsis Acute mitral valve endocarditis with moderate eccentric mitral regurgitation Blood cultures 07/30/2019 - NGTD Moderate to severe eccentric aortic regurgitation noted Volume overload on exam noted with distended neck veins and rales over the LLL Hx of COPD Hypertension Prior CVA Elevation of troponin ECG is sinus tachycardia, no acute ischemic changes. Patient is currently not on tele Recommend: No new changes, Echo negative for diastolic flow reversal in aorta, AI not severe. Continue Abx per ID recommendations Will continue to follow Objective Vital Signs Temp Pulse Pulse Resp BP BP Pulse Ox 08/18/19 14:38 69 143/82 08/18/19 12:16 99.2 F 69 16 143/82 98 08/18/19 11:19 78 130/83 08/18/19 11:17 78 130/83 08/18/19 10:00 80 18 08/18/19 07:56 99.0 F 78 20 130/83 99 08/18/19 05:09 77 129/77 08/18/19 03:59 98.1 F 77 16 129/77 96 08/18/19 00:00 97.7 F 69 17 137/76 96 08/17/19 21:04 82 153/81 08/17/19 20:14 98.9 F 82 17 153/81 98 08/17/19 16:21 98.2 F 79 20 164/76 96 - Physical Examination General: No Apparent Distress HEENT: Positive: PERRL Neck: Positive: trachea midline, JVD/HJR Cardiac: Positive: Reg Rate and Rhythm, Systolic Murmur Lungs: Positive: clear to auscultation Neuro: Positive: Weakness Abdomen: Positive: Active Bowel Sounds Skin: Positive: Clear Extremities: Absent: edema
[2019-08-18] MEDS ORDERED: CATHFLO IV ONE (15:34)
[2019-08-18] MEDS ORDERED: WATER FOR INJ Sterile (PF) 10 ML ONE (16:04)
[2019-08-18] MEDS ORDERED: WATER FOR INJ Sterile (PF) IV ONE (16:10)
[2019-08-18] MEDS: ENOXAPARIN SUB-Q SCH (21:44)
[2019-08-19] MEDS: AMPICILLIN/NS 2 GM/100 ML 2 GM/100 ML BAG IV SCH ×9 (04:00→21:28)
[2019-08-19] MEDS: ROCEPHIN/NS 2 GM/100 ML 2 GM/100 ML BAG IV SCH ×2 (04:55→15:49)
[2019-08-19] MEDS: APRESOLINE PO SCH ×3 (05:56→21:28)
--- NOTE | 2019-08-19 07:22 | Hem/Onc Progress Note ---
Assessment and Plan 1. h/o Unresponsiveness, history of fever. ID team following. 2. JAK2 mutation. The patient was on hydroxyurea, white cell count was low, Hydrea had been held. 3. History of chronic obstructive pulmonary disease. 4. History of hypertension. 5. History of hyperlipidemia. 6. History of cerebrovascular accident. 7. History of left renal cell cancer removal. 8. V/Q scan is negative for pulmonary embolism. 9. Lumbar puncture done 10. I will follow the patient during inpatient stay. pt awake - but speech slurred follows command of moving legs and opening mouth as per old notes - pt had been with Dr Frankel He was admitted to [facility] in feb 2019 - with CVA ID - Infective endocardititis 08/19 pt was on hydrea for CMPD - this was held as WBC was low restarted hydrea at a lower frequency WBC fluctuating as he was walking away from the hospital - he is being watched placement pending - kathy see pt PRN - Patient Problems (1) Myeloproliferative disease Current Visit: No Status: Acute Subjective Date of service: 08/19/19 Principal diagnosis: cmpd - cva Interval history: pending placement Objective - Exam Narrative Exam: Pain - n/a General appearance - awake - but slurred speech Performance status complete dependence Eyes - no icterus ENT - no bleeding LNs cervical not palpable Neck - no LN Respiratory Normal Breath sounds - CTA anteriorly CVS S1 S2 + Extremities no calf tenderness General GI Soft - PEG + Rectal deferred male - deferred Skin warm Musculoskeletal moving extremitites Neurologically awake - slurred speech - Constitutional Vitals: Last Vital Signs Temp 98.8 F 08/19/19 04:10 Pulse 79 08/18/19 20:02 Resp 17 08/19/19 04:10 BP 124/66 08/19/19 04:10 Pulse Ox 96 08/18/19 20:02 Medications & Allergies - Medications Allergies/Adverse Reactions: Allergies No Known Allergies Allergy (Unverified 07/17/14 19:25) Home Medications: Home Medications Medication Instructions Recorded Confirmed Last Taken Type Metoprolol Tartrate 50 mg PO BID 03/05/19 07/29/19 07/28/19 History QUEtiapine 50 mg PO DAILY 03/05/19 07/29/19 Unknown History Aspirin 325 mg PO QDAY tablet 03/11/19 07/29/19 07/29/19 17:39 Rx AtorvaSTATin [Lipitor] 80 mg PO QHS tablet 03/11/19 07/29/19 Unknown Rx Lisinopril [Zestril TAB] 20 mg PO QDAY tablet 03/11/19 07/29/19 Unknown Rx traZODone [Desyrel] 50 mg PO QDAY PRN tablet 03/11/19 07/29/19 Unknown Rx Hydroxyurea [Hydrea] 500 mg PO TuThSa@1000 #30 capsule 08/05/19 Unknown Rx Active Medications: Generic Name Dose Route Start Last Admin Trade Name Freq PRN Reason Stop Dose Admin Acetaminophen 650 mg 07/29/19 05:29 Tylenol PO Q4H PRN Pain, Mild (1-3), fever 100.5> Acetaminophen/Hydrocodone Bitart 1 each 07/29/19 21:50 08/17/19 17:52 [place] 5/325 PO 1 each Q4H PRN Administration Pain, Moderate (4-6) Albuterol 2.5 mg 08/10/19 02:48 08/11/19 17:54 Proventil IH 2.5 mg Q4HRT PRN Administration Shortness Of Breath Lipase/Protease/Amylase 1 each 08/14/19 10:[address] 10,500 Unit FEEDTUBE PRN PRN For Clogged Feeding Tube Aspirin 325 mg 07/29/19 10:00 08/18/19 11:18 Aspirin PO 325 mg QDAY LESLIE Administration Atorvastatin Calcium 80 mg 07/29/19 22:00 08/18/19 21:41 Lipitor PO 80 mg QHS LESLIE Administration Bisacodyl 10 mg 07/29/19 05:29 Dulcolax [place] QDAY PRN Constipation Enoxaparin Sodium 40 mg 08/08/19 10:00 08/18/19 21:44 Lovenox SUB-Q 40 mg QDAY@2200 LESLIE Administration Furosemide 20 mg 08/16/19 12:00 08/18/19 11:16 Lasix IV 20 mg QDAY LESLIE Administration Hydralazine HCl 10 mg 08/01/19 05:00 08/17/19 00:01 Apresoline IV 10 mg Q4HR PRN Administration Hypertension Hydralazine HCl 25 mg 08/16/19 14:00 08/19/19 05:56 Apresoline PO 25 mg Q8HR LESLIE Administration Hydroxyurea 500 mg 08/03/19 15:00 08/18/19 11:25 Hydrea PO Not Given TuThSa@1000 LESLIE Ampicillin Sodium 2 gm in 100 mls @ 100 mls/hr 08/05/19 10:00 08/19/19 04:00 Ampicillin/Ns 2 Gm/100 Ml IV 09/10/19 23:59 100 mls/hr Q4H LESLIE Administration Ceftriaxone Sodium 2 gm in 100 mls @ 200 mls/hr 08/15/19 15:00 08/19/19 04:55 Rocephin/Ns 2 Gm/100 Ml IV 09/10/19 23:59 200 mls/hr Q12H LESLIE Administration Protocol Lisinopril 30 mg 08/14/19 10:00 08/18/19 11:17 Zestril PO 30 mg QDAY LESLIE Administration Lorazepam 1 mg 07/29/19 06:42 08/14/19 06:27 Ativan IV 1 mg Q4H PRN Administration Seizures Magnesium Hydroxide 30 ml 07/29/19 05:29 Milk Of Magnesia PO Q4H PRN Constipation Metoprolol Tartrate 50 mg 07/29/19 10:00 08/18/19 21:40 Lopressor PO 50 mg BID LESLIE Administration Ondansetron HCl 4 mg 07/29/19 05:29 08/10/19 10:49 Zofran IV 4 mg Q6H PRN Administration Nausea And Vomiting Simple Syrup 15 ml 08/14/19 10:45 Simple Syrup FEEDTUBE PRN PRN Hypoglycemia Simple Syrup 30 ml 08/14/19 10:45 Simple Syrup FEEDTUBE PRN PRN Hypoglycemia Sodium Bicarbonate 325 mg 08/14/19 10:45 Sodium Bicarbonate FEEDTUBE PRN PRN For Clogged Feeding Tube Sodium Chloride 10 ml 07/29/19 05:29 08/17/19 10:39 Sodium Chloride Flush Syringe 10 Ml IV 10 ml PRN PRN Administration LINE FLUSH
[2019-08-19 08:51] LABS: Basophils # (Auto) 0.1 K/mm3 (0.0-0.1); Eosinophils # (Auto) 0.5 K/mm3 (0.0-0.4); Eosinophils % (Auto) 7.8 % (0.0-4.3); Hemoglobin 10.2 gm/dl (11.8-15.2); Lymphocytes # (Auto) 1.3 K/mm3 (1.2-5.4); Lymphocytes % (Auto) 20.9 % (13.4-35.0); Mean Corpuscular HGB Conc 33 % (32-34); Mean Corpuscular Volume 108 fl (84-94); Monocytes # (Auto) 0.6 K/mm3 (0.0-0.8); Platelet Count 315 K/mm3 (140-440); Red Blood Count 2.88 M/mm3 (3.65-5.03); Red Cell Distribution Width 18.4 % (13.2-15.2)
[2019-08-19] MEDS: LASIX IV SCH (10:15)
[2019-08-19] MEDS: METOPROLOL PO SCH ×2 (10:15→21:27)
[2019-08-19] MEDS: ZESTRIL PO SCH (10:16)
[2019-08-19] MEDS: ASPIRIN PO SCH (10:16)
[2019-08-19 10:19] LABS: BUN/Creatinine Ratio 21; Blood Urea Nitrogen 17 mg/dL (9-20); Calcium 8.6 mg/dL (8.4-10.2); Hemolysis Index 1
--- NOTE | 2019-08-19 11:04 | Progress Note ---
Assessment and Plan Assessment and plan: Acute pulmonary edema. Continue diuresis with IV Lasix, afterload reduction wi th hydralazine and echocardiogram negative for diastolic flow reversal and aorta. Aortic insufficiency not severe per cardiology. Sepsis secondary to Acute mitral valve endocarditis with Enterococcus: TTE showed mitral valve vegetation. Appreciate Cardiology recs, no surgical intervention. -Picc line placed. discontinued Vancomycin. 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 -LP done, doubt meningitis, isolation discontinued - reports questionable orthopnea. Check chest x-ray. Acute encephalopathy secondary to Seizure precipitated by sepsis -Continue to monitor -Neurology consulted and input noted. Possible seizure rather than CVA also as evidenced by CT head, with no acute cva noted. Hypertension -Continue to monitor BP -cont. 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 Psychiatry nurse practitioner note reviewed: for outpatient follow-up DVT PPX -SCD's -start sq lovenox, d/w Heme/Onc Disposition. Discharge once IV abx arranged History Interval history: No new issues overnight. Hospitalist Physical - Constitutional Vitals: Temp Pulse Resp BP Pulse Ox 98.8 F 75 18 158/84 93 08/19/19 07:24 08/19/19 10:16 08/19/19 07:24 08/19/19 07:24 08/19/19 07:24 General appearance: Present: no acute distress - EENT Eyes: Present: PERRL, EOM intact ENT: hearing intact, clear oral mucosa, dentition normal - Neck Neck: Present: supple, normal ROM - Respiratory Respiratory effort: normal Respiratory: bilateral: CTA - Cardiovascular Rhythm: regular Heart Sounds: Present: S1 & S2. Absent: gallop, rub - Extremities Extremities: no ischemia, No edema, Full ROM - Abdominal General gastrointestinal: soft, non-tender, non-distended, normal bowel sounds - Integumentary Integumentary: Present: clear, warm, dry - Neurologic Neurologic: CNII-XII intact, moves all extremities Results - Labs CBC & Chem 7: 08/19/19 08:08 08/19/19 08:08 Labs: Laboratory Last Values WBC 6.2 K/mm3 (4.5-11.0) 08/19/19 08:08 RBC 2.88 M/mm3 (3.65-5.03) L 08/19/19 08:08 Hgb 10.2 gm/dl (11.8-15.2) L 08/19/19 08:08 Hct 31.0 % (35.5-45.6) L 08/19/19 08:08 MCV 108 fl (84-94) H 08/19/19 08:08 MCH 35 pg (28-32) H 08/19/19 08:08 MCHC 33 % (32-34) 08/19/19 08:08 RDW 18.4 % (13.2-15.2) H 08/19/19 08:08 Plt Count 315 K/mm3 (140-440) 08/19/19 08:08 Lymph % (Auto) 20.9 % (13.4-35.0) 08/19/19 08:08 [place] % (Auto) 9.0 % (0.0-7.3) H 08/19/19 08:08 Eos % (Auto) 7.8 % (0.0-4.3) H 08/19/19 08:08 Baso % (Auto) 1.0 % (0.0-1.8) 08/19/19 08:08 Lymph # 1.3 K/mm3 (1.2-5.4) 08/19/19 08:08 [place] # 0.6 K/mm3 (0.0-0.8) 08/19/19 08:08 Eos # 0.5 K/mm3 (0.0-0.4) H 08/19/19 08:08 Baso # 0.1 K/mm3 (0.0-0.1) 08/19/19 08:08 Add Manual Diff Complete 07/29/19 00:42 Total Counted 100 07/29/19 00:42 Seg Neutrophils % 61.3 % (40.0-70.0) 08/19/19 08:08 Seg Neuts % (Manual) 82.0 % (40.0-70.0) H 07/29/19 00:42 Band Neutrophils % 0 % 07/29/19 00:42 Lymphocytes % (Manual) 16.0 % (13.4-35.0) 07/29/19 00:42 Reactive Lymphs % (Man) 0 % 07/29/19 00:42 Monocytes % (Manual) 1.0 % (0.0-7.3) 07/29/19 00:42 Eosinophils % (Manual) 0 % (0.0-4.3) 07/29/19 00:42 Basophils % (Manual) 1.0 % (0.0-1.8) 07/29/19 00:42 Metamyelocytes % 0 % 07/29/19 00:42 Myelocytes % 0 % 07/29/19 00:42 Promyelocytes % 0 % 07/29/19 00:42 Blast Cells % 0 % 07/29/19 00:42 Nucleated RBC % Not Reportable 07/29/19 00:42 Seg Neutrophils # 3.8 K/mm3 (1.8-7.7) 08/19/19 08:08 Seg Neutrophils # Man 1.6 K/mm3 (1.8-7.7) L 07/29/19 00:42 Band Neutrophils # 0.0 K/mm3 07/29/19 00:42 Lymphocytes # (Manual) 0.3 K/mm3 (1.2-5.4) L 07/29/19 00:42 Abs React Lymphs (Man) 0.0 K/mm3 07/29/19 00:42 Monocytes # (Manual) 0.0 K/mm3 (0.0-0.8) 07/29/19 00:42 Eosinophils # (Manual) 0.0 K/mm3 (0.0-0.4) 07/29/19 00:42 Basophils # (Manual) 0.0 K/mm3 (0.0-0.1) 07/29/19 00:42 Metamyelocytes # 0.0 K/mm3 07/29/19 00:42 Myelocytes # 0.0 K/mm3 07/29/19 00:42 Promyelocytes # 0.0 K/mm3 07/29/19 00:42 Blast Cells # 0.0 K/mm3 07/29/19 00:42 WBC Morphology Not Reportable 07/29/19 00:42 Hypersegmented Neuts Not Reportable 07/29/19 00:42 Hyposegmented Neuts Not Reportable 07/29/19 00:42 Hypogranular Neuts Not Reportable 07/29/19 00:42 Smudge Cells Not Reportable 07/29/19 00:42 Toxic Granulation Not Reportable 07/29/19 00:42 Toxic Vacuolation Not Reportable 07/29/19 00:42 Dohle Bodies Not Reportable 07/29/19 00:42 Pelger-Huet Anomaly Not Reportable 07/29/19 00:42 Jorge A Rods Not Reportable 07/29/19 00:42 Platelet Estimate Not Reportable 07/29/19 00:42 Clumped Platelets Not Reportable 07/29/19 00:42 Plt Clumps, EDTA Not Reportable 07/29/19 00:42 Large Platelets Not Reportable 07/29/19 00:42 Giant Platelets Not Reportable 07/29/19 00:42 Platelet Satelliting Not Reportable 07/29/19 00:42 Plt Morphology Comment Not Reportable 07/29/19 00:42 RBC Morphology Not Reportable 07/29/19 00:42 Dimorphic RBCs Not Reportable 07/29/19 00:42 Polychromasia Not Reportable 07/29/19 00:42 Hypochromasia Not Reportable 07/29/19 00:42 Poikilocytosis Not Reportable 07/29/19 00:42 Anisocytosis 2+ 07/29/19 00:42 Microcytosis Not Reportable 07/29/19 00:42 Macrocytosis Not Reportable 07/29/19 00:42 Spherocytes Not Reportable 07/29/19 00:42 Pappenheimer Bodies Not Reportable 07/29/19 00:42 Sickle Cells Not Reportable 07/29/19 00:42 Target Cells Not Reportable 07/29/19 00:42 Tear Drop Cells Not Reportable 07/29/19 00:42 Ovalocytes Not Reportable 07/29/19 00:42 Helmet Cells Not Reportable 07/29/19 00:42 Antunez-Pray Bodies Not Reportable 07/29/19 00:42 [place] Rings Not Reportable 07/29/19 00:42 Danese Cells Not Reportable 07/29/19 00:42 Bite Cells Not Reportable 07/29/19 00:42 Crenated Cell Not Reportable 07/29/19 00:42 Elliptocytes Not Reportable 07/29/19 00:42 Acanthocytes (Spur) Not Reportable 07/29/19 00:42 Rouleaux Not Reportable 07/29/19 00:42 Hemoglobin C Crystals Not Reportable 07/29/19 00:42 Schistocytes Not Reportable 07/29/19 00:42 Malaria parasites Not Reportable 07/29/19 00:42 Marco Bodies Not Reportable 07/29/19 00:42 Hem Pathologist Commnt No 07/29/19 00:42 PT 13.8 Sec. (12.2-14.9) 07/29/19 00:42 INR 1.09 (0.87-1.13) 07/29/19 00:42 APTT 26.5 Sec. (24.2-36.6) 07/29/19 00:42 Thrombin Time 17.2 Sec. (15.1-19.6) 07/29/19 00:42 D-Dimer 1354.97 ng/mlDDU (0-234) H 07/29/19 00:42 Sodium 137 mmol/L (137-145) 08/19/19 08:08 Potassium 4.1 mmol/L (3.6-5.0) 08/19/19 08:08 Chloride 101.0 mmol/L (98-107) 08/19/19 08:08 Carbon Dioxide 25 mmol/L (22-30) 08/19/19 08:08 Anion Gap 15 mmol/L 08/19/19 08:08 BUN 17 mg/dL (9-20) 08/19/19 08:08 Creatinine 0.8 mg/dL (0.8-1.5) 08/19/19 08:08 Estimated GFR > 60 ml/min 08/19/19 08:08 BUN/Creatinine Ratio 21 % 08/19/19 08:08 Glucose 115 mg/dL (75-100) H 08/19/19 08:08 POC Glucose 83 (70-105) 08/07/19 07:40 Lactic Acid 1.80 mmol/L (0.7-2.0) 07/29/19 12:58 Calcium 8.6 mg/dL (8.4-10.2) 08/19/19 08:08 Iron 82 ug/dL (49-181) 08/01/19 06:54 TIBC 224 mcg/dL (250-450) L 08/01/19 06:54 Ferritin 1110.0 ng/mL (13.0-400.0) H 08/01/19 06:54 Total Bilirubin 0.30 mg/dL (0.1-1.2) 08/13/19 04:39 AST 16 units/L (5-40) 08/13/19 04:39 ALT 11 units/L (7-56) 08/13/19 04:39 Alkaline Phosphatase 70 units/L (35-129) 08/13/19 04:39 Total Creatine Kinase 184 units/L (55-170) H 07/29/19 12:58 CK-MB (CK-2) 2.8 ng/mL (0.0-4.0) 07/29/19 12:58 CK-MB (CK-2) Rel Index 1.5 (0-4) 07/29/19 12:58 Troponin T 0.114 ng/mL (0.00-0.029) H* D 07/29/19 10:44 NT-Pro-B Natriuret Pep 1767 pg/mL (0-900) H 07/29/19 02:03 Total Protein 8.4 g/dL (6.3-8.2) H 08/13/19 04:39 Albumin 3.6 g/dL (3.9-5) L 08/13/19 04:39 Albumin/Globulin Ratio 0.8 % 08/13/19 04:39 Triglycerides TNR 07/29/19 00:42 Cholesterol TNR 07/29/19 00:42 LDL Cholesterol Direct TNR 07/29/19 00:42 HDL Cholesterol TNR 07/29/19 00:42 Cholesterol/HDL Ratio TNR 07/29/19 00:42 Vitamin B12 1858 pg/mL (211-911) H 08/01/19 06:54 Folate 15.28 ng/mL (7.3-26.0) 08/01/19 06:54 Urine Color Yellow (Yellow) 07/29/19 01:50 Urine Turbidity Slightly-cloudy (Clear) 07/29/19 01:50 Urine pH 5.0 (5.0-7.0) 07/29/19 01:50 Ur Specific [place] 1.017 (1.003-1.030) 07/29/19 01:50 Urine Protein 100 mg/dl mg/dL (Negative) 07/29/19 01:50 Urine Glucose (UA) Neg mg/dL (Negative) 07/29/19 01:50 Urine Ketones Neg mg/dL (Negative) 07/29/19 01:50 Urine Blood Mod (Negative) 07/29/19 01:50 Urine Nitrite Pos (Negative) 07/29/19 01:50 Urine Bilirubin Neg (Negative) 07/29/19 01:50 Urine Urobilinogen 2.0 mg/dL (<2.0) 07/29/19 01:50 Ur Leukocyte Esterase Tr (Negative) 07/29/19 01:50 Urine WBC (Auto) 10.0 /HPF (0.0-6.0) H 07/29/19 01:50 Urine RBC (Auto) 41.0 /HPF (0.0-6.0) 07/29/19 01:50 U Epithel Cells (Auto) 1.0 /HPF (0-13.0) 07/29/19 01:50 Urine Bacteria (Auto) 2+ /HPF (Negative) 07/29/19 01:50 Urine Mucus Few /HPF 07/29/19 01:50 CSF Appearance Clear 07/30/19 12:00 CSF Color Colorless 07/30/19 12:00 CSF WBC 3 /mm3 (1-10) 07/30/19 12:00 CSF RBC 75 /mm3 (0-0) 07/30/19 12:00 CSF Seg Neutrophils 5.6 % (0-6) 07/30/19 12:00 CSF Lymphocytes % 88.9 % (40-80) 07/30/19 12:00 CSF Reactive Lymphs 0 % 07/30/19 12:00 CSF Monocytes % 5.6 % (15-45) 07/30/19 12:00 CSF Eosinophils % 0 % 07/30/19 12:00 CSF Basophils 0 % 07/30/19 12:00 CSF Pathologist Review C 07/30/19 12:00 CSF Glucose 64 mg/dL 07/30/19 12:00 CSF Total Protein 31 mg/dL 07/30/19 12:00 CSF VDRL Nonreactive (Nonreactive) 07/30/19 12:00 Vancomycin Trough 19.6 ug/mL (5.0-20.0) 08/01/19 07:50 Active Medications - Current Medications Current Medications: Generic Name Dose Route Start Last Admin Trade Name Freq PRN Reason Stop Dose Admin Acetaminophen 650 mg 07/29/19 05:29 Tylenol PO Q4H PRN Pain, Mild (1-3), fever 100.5> Acetaminophen/Hydrocodone Bitart 1 each 07/29/19 21:50 08/17/19 17:52 [place] 5/325 PO 1 each Q4H PRN Administration Pain, Moderate (4-6) Albuterol 2.5 mg 08/10/19 02:48 08/11/19 17:54 Proventil IH 2.5 mg Q4HRT PRN Administration Shortness Of Breath Lipase/Protease/Amylase 1 each 08/14/19 10:[address] 10,500 Unit FEEDTUBE PRN PRN For Clogged Feeding Tube Aspirin 325 mg 07/29/19 10:00 08/19/19 10:16 Aspirin PO 325 mg QDAY LESLIE Administration Atorvastatin Calcium 80 mg 07/29/19 22:00 08/18/19 21:41 Lipitor PO 80 mg QHS LESLIE Administration Bisacodyl 10 mg 07/29/19 05:[address] QDAY PRN Constipation Enoxaparin Sodium 40 mg 08/08/19 10:00 08/18/19 21:44 Lovenox SUB-Q 40 mg QDAY@2200 LESLIE Administration Furosemide 20 mg 08/16/19 12:00 08/19/19 10:15 Lasix IV 20 mg QDAY LESLIE Administration Hydralazine HCl 10 mg 08/01/19 05:00 08/17/19 00:01 Apresoline IV 10 mg Q4HR PRN Administration Hypertension Hydralazine HCl 25 mg 08/16/19 14:00 08/19/19 05:56 Apresoline PO 25 mg Q8HR LESLIE Administration Hydroxyurea 500 mg 08/03/19 15:00 08/18/19 11:25 Hydrea PO Not Given TuThSa@1000 LESLIE Ampicillin Sodium 2 gm in 100 mls @ 100 mls/hr 08/05/19 10:00 08/19/19 10:02 Ampicillin/Ns 2 Gm/100 Ml IV 09/10/19 23:59 100 mls/hr Q4H LESLIE Administration Ceftriaxone Sodium 2 gm in 100 mls @ 200 mls/hr 08/15/19 15:00 08/19/19 04:55 Rocephin/Ns 2 Gm/100 Ml IV 09/10/19 23:59 200 mls/hr Q12H LESLIE Administration Protocol Lisinopril 30 mg 08/14/19 10:00 08/19/19 10:16 Zestril PO 30 mg QDAY LESLIE Administration Lorazepam 1 mg 07/29/19 06:42 08/14/19 06:27 Ativan IV 1 mg Q4H PRN Administration Seizures Magnesium Hydroxide 30 ml 07/29/19 05:29 Milk Of Magnesia PO Q4H PRN Constipation Metoprolol Tartrate 50 mg 07/29/19 10:00 08/19/19 10:15 Lopressor PO 50 mg BID LESLIE Administration Ondansetron HCl 4 mg 07/29/19 05:29 08/10/19 10:49 Zofran IV 4 mg Q6H PRN Administration Nausea And Vomiting Simple Syrup 15 ml 08/14/19 10:45 Simple Syrup FEEDTUBE PRN PRN Hypoglycemia Simple Syrup 30 ml 08/14/19 10:45 Simple Syrup FEEDTUBE PRN PRN Hypoglycemia Sodium Bicarbonate 325 mg 08/14/19 10:45 Sodium Bicarbonate FEEDTUBE PRN PRN For Clogged Feeding Tube Sodium Chloride 10 ml 07/29/19 05:29 08/17/19 10:39 Sodium Chloride Flush Syringe 10 Ml IV 10 ml PRN PRN Administration LINE FLUSH Nutrition/Malnutrition Assess - Dietary Evaluation Nutrition/Malnutrition Findings: Nutrition Notes Start: 07/29/19 14:00 Freq: Status: Active Protocol: Document 08/16/19 11:27 PS (Rec: 08/16/19 12:23 PS [id number]) Co-Sign 08/16/19 11:27 LP Nutrition Notes Initial or Follow up Reassessment Current Diagnosis COPD,Sepsis,Hypertension, Hyperlipidemia Other Pertinent Diagnosis Hx CVA X 2, Nonverbal,UTI,Pneu , Acute encephalopathy, Suspicion of seizure Current Diet Pureed Cardiac Diet, Overnight TF Labs/Tests Reviewed Pertinent Medications Reviewed Height 5 ft 9 in Weight 82.7 kg [place] Body Weight (kg) 72.72 BMI 26.9 Subjective/Other Information Pt recieved overnight TF of Jevity 1.2 at 75 ml/hr. Pt. was out of bed and sitting in chair during visit. Pt. recieved trays from hospital. Pt. in room during visit and feeding pt. States pt. does have appetite, but does not like the hospital food. states she brings in food from home. States he eats all of his solid food when she brings it in and has no trouble eating it. asked MD to meet with [employer] for update with swallowing difficulty because he has been eating solid food for months. Percent of energy/protein needs met: 80%/88% Burn Absent Trauma Absent Minimum of two criteria No #1 Nutrition Diagnosis Inadequate oral intake As Evidenced by Signs and Symptoms Pt. 25% of food from hospital and more from home. Diagnosis Progress(for reassessment Improved documentation) Is patient on ventilator? No Is Patient Ambulatory and/or Out of Bed Yes REE-([facility]-ambulatory/OOB) [ 2161.094 [id number]] Kcal/Kg value to use for calculation 25 Approximate Energy Requirements Using 2067 kcal/Kg Calculation Used for Recommendations Kcal/kg Additional Notes PRO: 81-97g (1-1.2g/kg/day) Fluid: 1mL/kcal Nutrition Intervention Change Diet Order: Continue current diet Nutrition Support: Initate Jevity 1.2 at 75 ml/h from 7 p to 7 a with 120 ml water flushes q 4 h Kcal 1,080 Protein (gm) 50 Fluid (mL) 726 Goal #1 Meet at least 75% of energy/ PRO needs via PO and cyclic TF . Anticipated Discharge Needs: Cardiac Diet Follow-Up By: 08/21/19 Additional Comments FU for PO intakes and TF tolerance
[2019-08-19] MEDS: HYDROXYUREA PO SCH (14:09)
--- NOTE | 2019-08-19 16:59 | Progress Note ---
Assessment and Plan - Patient Problems (1) Endocarditis Current Visit: Yes Status: Acute Plan to address problem: Patient was admitted with fever and enterococcal sepsis, echocardiogram showed acute mitral valve endocarditis. There is moderate mitral regurgitation, and mild to moderate aortic regurgitation. The aortic regurgitation is chronic and was seen on prior echocardiogram 6 months ago. Continue intravenous antibiotic regimen. Subjective Date of service: 08/19/19 Principal diagnosis: cmpd - cva Interval history: Patient is comfortable, no acute distress, looks and feels better. Objective Vital Signs Temp Pulse Resp BP Pulse Ox 08/19/19 14:08 79 08/19/19 10:16 75 08/19/19 10:15 75 08/19/19 07:24 98.8 F 94 H 18 158/84 93 08/19/19 04:10 98.8 F 17 124/66 08/18/19 20:02 98.8 F 79 18 140/78 96 - Physical Examination General: No Apparent Distress HEENT: Positive: PERRL Neck: Positive: trachea midline, JVD/HJR Cardiac: Positive: Reg Rate and Rhythm Lungs: Positive: Decreased Breath Sounds Neuro: Positive: Weakness Abdomen: Positive: Active Bowel Sounds Skin: Positive: Clear Extremities: Absent: edema - Labs and Meds CBC 08/19/19 Range/Units 08:08 WBC 6.2 (4.5-11.0) K/mm3 RBC 2.88 L (3.65-5.03) M/mm3 Hgb 10.2 L (11.8-15.2) gm/dl Hct 31.0 L (35.5-45.6) % Plt Count 315 (140-440) K/mm3 Lymph # 1.3 (1.2-5.4) K/mm3 [place] # 0.6 (0.0-0.8) K/mm3 Eos # 0.5 H (0.0-0.4) K/mm3 Baso # 0.1 (0.0-0.1) K/mm3 Comprehensive Metabolic Panel 08/19/19 Range/Units 08:08 Sodium 137 (137-145) mmol/L Potassium 4.1 (3.6-5.0) mmol/L Chloride 101.0 (98-107) mmol/L Carbon Dioxide 25 (22-30) mmol/L BUN 17 (9-20) mg/dL Creatinine 0.8 (0.8-1.5) mg/dL Glucose 115 H (75-100) mg/dL Calcium 8.6 (8.4-10.2) mg/dL
[2019-08-19] MEDS: ENOXAPARIN SUB-Q SCH (21:27)
[2019-08-20] MEDS: AMPICILLIN/NS 2 GM/100 ML 2 GM/100 ML BAG IV SCH ×6 (01:25→21:28)
[2019-08-20] MEDS: ROCEPHIN/NS 2 GM/100 ML 2 GM/100 ML BAG IV SCH ×2 (02:28→16:07)
[2019-08-20] MEDS: APRESOLINE PO SCH ×3 (05:43→21:29)
--- NOTE | 2019-08-20 08:03 | Hem/Onc Progress Note ---
Assessment and Plan 1. h/o Unresponsiveness, history of fever. ID team following. 2. JAK2 mutation. The patient was on hydroxyurea, white cell count was low, Hydrea had been held. 3. History of chronic obstructive pulmonary disease. 4. History of hypertension. 5. History of hyperlipidemia. 6. History of cerebrovascular accident. 7. History of left renal cell cancer removal. 8. V/Q scan is negative for pulmonary embolism. 9. Lumbar puncture done 10. I will follow the patient during inpatient stay. pt awake - but speech slurred follows command of moving legs and opening mouth as per old notes - pt had been with Dr Frankel He was admitted to [facility] in feb 2019 - with CVA ID - Infective endocardititis 08/20 pt was on hydrea for CMPD - this was held as WBC was low restarted hydrea at a lower frequency WBC fluctuating as he was walking away from the hospital - he is being watched placement pending - d/w hospitalist - Patient Problems (1) Myeloproliferative disease Current Visit: No Status: Acute Subjective Date of service: 08/20/19 Principal diagnosis: ch myelo prolifer disease Interval history: placement pending Objective - Exam Narrative Exam: Pain - n/a General appearance - awake - but slurred speech Performance status complete dependence Eyes - no icterus ENT - no bleeding LNs cervical not palpable Neck - no LN Respiratory Normal Breath sounds - CTA anteriorly CVS S1 S2 + Extremities no calf tenderness General GI Soft - PEG + Rectal deferred male - deferred Skin warm Musculoskeletal moving extremitites Neurologically awake - slurred speech - Constitutional Vitals: Last Vital Signs Temp 97.4 F L 08/19/19 23:28 Pulse 72 08/20/19 05:43 Resp 74 H 08/19/19 23:28 BP 137/62 08/20/19 05:43 Pulse Ox 97 08/19/19 19:45 - Labs Lab Results: Laboratory Results - last 24 hr 08/19/19 08/19/19 08:08 08:08 WBC 6.2 RBC 2.88 L Hgb 10.2 L Hct 31.0 L MCV 108 H MCH 35 H MCHC 33 RDW 18.4 H Plt Count 315 Lymph % (Auto) 20.9 [place] % (Auto) 9.0 H Eos % (Auto) 7.8 H Baso % (Auto) 1.0 Lymph # 1.3 [place] # 0.6 Eos # 0.5 H Baso # 0.1 Seg Neutrophils % 61.3 Seg Neutrophils # 3.8 Sodium 137 Potassium 4.1 Chloride 101.0 Carbon Dioxide 25 Anion Gap 15 BUN 17 Creatinine 0.8 Estimated GFR > 60 BUN/Creatinine Ratio 21 Glucose 115 H Calcium 8.6 Medications & Allergies - Medications Allergies/Adverse Reactions: Allergies No Known Allergies Allergy (Unverified 07/17/14 19:25) Home Medications: Home Medications Medication Instructions Recorded Confirmed Last Taken Type Metoprolol Tartrate 50 mg PO BID 03/05/19 07/29/19 07/28/19 History QUEtiapine 50 mg PO DAILY 03/05/19 07/29/19 Unknown History Aspirin 325 mg PO QDAY tablet 03/11/19 07/29/19 07/29/19 17:39 Rx AtorvaSTATin [Lipitor] 80 mg PO QHS tablet 03/11/19 07/29/19 Unknown Rx Lisinopril [Zestril TAB] 20 mg PO QDAY tablet 03/11/19 07/29/19 Unknown Rx traZODone [Desyrel] 50 mg PO QDAY PRN tablet 03/11/19 07/29/19 Unknown Rx Hydroxyurea [Hydrea] 500 mg PO TuThSa@1000 #30 capsule 08/05/19 Unknown Rx Active Medications: Generic Name Dose Route Start Last Admin Trade Name Freq PRN Reason Stop Dose Admin Acetaminophen 650 mg 07/29/19 05:29 Tylenol PO Q4H PRN Pain, Mild (1-3), fever 100.5> Acetaminophen/Hydrocodone Bitart 1 each 07/29/19 21:50 08/17/19 17:52 [place] 5/325 PO 1 each Q4H PRN Administration Pain, Moderate (4-6) Albuterol 2.5 mg 08/10/19 02:48 08/11/19 17:54 Proventil IH 2.5 mg Q4HRT PRN Administration Shortness Of Breath Lipase/Protease/Amylase 1 each 08/14/19 10:[address] 10,500 Unit FEEDTUBE PRN PRN For Clogged Feeding Tube Aspirin 325 mg 07/29/19 10:00 08/19/19 10:16 Aspirin PO 325 mg QDAY LESLIE Administration Atorvastatin Calcium 80 mg 07/29/19 22:00 08/19/19 21:27 Lipitor PO 80 mg QHS LESLIE Administration Bisacodyl 10 mg 07/29/19 05:29 Dulcolax IA QDAY PRN Constipation Enoxaparin Sodium 40 mg 08/08/19 10:00 08/19/19 21:27 Lovenox SUB-Q 40 mg QDAY@2200 LESLIE Administration Furosemide 20 mg 08/16/19 12:00 08/19/19 10:15 Lasix IV 20 mg QDAY LESLIE Administration Hydralazine HCl 10 mg 08/01/19 05:00 08/17/19 00:01 Apresoline IV 10 mg Q4HR PRN Administration Hypertension Hydralazine HCl 25 mg 08/16/19 14:00 08/20/19 05:43 Apresoline PO 25 mg Q8HR LESLIE Administration Hydroxyurea 500 mg 08/03/19 15:00 08/19/19 14:09 Hydrea PO Not Given TuThSa@1000 LESLIE Ampicillin Sodium 2 gm in 100 mls @ 100 mls/hr 08/05/19 10:00 08/20/19 05:43 Ampicillin/Ns 2 Gm/100 Ml IV 09/10/19 23:59 100 mls/hr Q4H LESLIE Administration Ceftriaxone Sodium 2 gm in 100 mls @ 200 mls/hr 08/15/19 15:00 08/20/19 02:28 Rocephin/Ns 2 Gm/100 Ml IV 09/10/19 23:59 200 mls/hr Q12H LESLIE Administration Protocol Lisinopril 30 mg 08/14/19 10:00 08/19/19 10:16 Zestril PO 30 mg QDAY LESLIE Administration Lorazepam 1 mg 07/29/19 06:42 08/14/19 06:27 Ativan IV 1 mg Q4H PRN Administration Seizures Magnesium Hydroxide 30 ml 07/29/19 05:29 Milk Of Magnesia PO Q4H PRN Constipation Metoprolol Tartrate 50 mg 07/29/19 10:00 08/19/19 21:27 Lopressor PO 50 mg BID LESLIE Administration Ondansetron HCl 4 mg 07/29/19 05:29 08/10/19 10:49 Zofran IV 4 mg Q6H PRN Administration Nausea And Vomiting Simple Syrup 15 ml 08/14/19 10:45 Simple Syrup FEEDTUBE PRN PRN Hypoglycemia Simple Syrup 30 ml 08/14/19 10:45 Simple Syrup FEEDTUBE PRN PRN Hypoglycemia Sodium Bicarbonate 325 mg 08/14/19 10:45 Sodium Bicarbonate FEEDTUBE PRN PRN For Clogged Feeding Tube Sodium Chloride 10 ml 07/29/19 05:29 08/17/19 10:39 Sodium Chloride Flush Syringe 10 Ml IV 10 ml PRN PRN Administration LINE FLUSH
--- NOTE | 2019-08-20 11:36 | Progress Note ---
Assessment and Plan Enterococcal sepsis Acute mitral valve endocarditis Hx of COPD Hypertension Prior CVA Elevation of troponin ECG is sinus tachycardia, no acute ischemic changes. An repeat echocardiogram this admission revealed: 1. Mitral valve vegetation. 2. Moderate MR. 3. Normal LV function EF 55-60%. 4. Mild-moderate AR. Recommend: Continue intravenous antibiotic therapy for acute mitral valve endocarditis. We will follow intermittently. Subjective Date of service: 08/20/19 Principal diagnosis: cmpd - cva Interval history: No cardiac complaints. Physical therapy at bedside. Objective Vital Signs Temp Pulse Resp BP Pulse Ox 08/20/19 07:53 73 122/66 100 08/20/19 05:43 72 137/62 08/20/19 05:38 98.1 F 73 72 H 137/62 98 08/19/19 23:28 97.4 F L 74 H 133/84 08/19/19 21:28 82 134/71 08/19/19 21:27 82 134/71 08/19/19 19:46 98.3 F 08/19/19 19:45 80 18 134/71 97 08/19/19 16:42 97.9 F 75 20 125/72 98 08/19/19 14:08 79 - Physical Examination General: No Apparent Distress HEENT: Positive: PERRL Neck: Positive: trachea midline Cardiac: Positive: Reg Rate and Rhythm Lungs: Positive: Decreased Breath Sounds Neuro: Positive: Weakness Extremities: Absent: edema
[2019-08-20] MEDS: LASIX IV SCH (11:39)
[2019-08-20] MEDS: METOPROLOL PO SCH ×2 (11:39→21:28)
[2019-08-20] MEDS: ASPIRIN PO SCH (11:39)
[2019-08-20] MEDS: ZESTRIL PO SCH (11:40)
[2019-08-20] MEDS: SODIUM CHLORIDE FLUSH SYRINGE 10 ML IV PRN (11:45)
[2019-08-20] MEDS: HYDROXYUREA PO SCH (14:15)
--- NOTE | 2019-08-20 14:24 | Progress Note ---
Assessment and Plan Assessment and plan: Acute pulmonary edema. Continue diuresis with IV Lasix, afterload reduction with hydralazine and echocardiogram negative for diastolic flow reversal and aorta. Aortic insufficiency not severe per cardiology. Sepsis secondary to Acute mitral valve endocarditis with Enterococcus: TTE showed mitral valve vegetation. Appreciate Cardiology recs, no surgical intervention. -Picc line placed. discontinued Vancomycin. 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 -LP done, doubt meningitis, isolation discontinued - reports questionable orthopnea. Check chest x-ray. Acute encephalopathy secondary to Seizure precipitated by sepsis -Continue to monitor -Neurology consulted and input noted. Possible seizure rather than CVA also as evidenced by CT head, with no acute cva noted. Hypertension -Continue to monitor BP -cont. 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 Psychiatry nurse practitioner note reviewed: for outpatient follow-up DVT PPX -SCD's -start sq lovenox, d/w Heme/Onc Disposition. Discharge once IV abx arranged History Interval history: Patient was seen and evaluated this morning No acute events overnight Hospitalist Physical - Physical exam Narrative exam: Not in cardiopulmonary distress. The patient appeared well nourished and normally developed. Vital signs as documented. Head exam is unremarkable. No scleral icterus . Neck is without jugular venous distension, thyromegaly, or carotid bruits. Lungs are clear to auscultation. Cardiac exam reveals regular rate and Rhythm. First and second heart sounds normal. No murmurs, rubs or gallops. Abdominal exam reveals normal bowel sounds, no masses, no organomegaly and no aortic enlargement. Extremities are nonedematous and both femoral and pedal pulses are normal. 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 Right facial palsy. - Constitutional Vitals: Temp Pulse Resp BP Pulse Ox 98.1 F 79 20 139/69 100 08/20/19 05:38 08/20/19 14:15 08/20/19 10:00 08/20/19 14:15 08/20/19 10:00 General appearance: Present: no acute distress Results - Labs CBC & Chem 7: 08/19/19 08:08 08/19/19 08:08 Labs: Laboratory Last Values WBC 6.2 K/mm3 (4.5-11.0) 08/19/19 08:08 RBC 2.88 M/mm3 (3.65-5.03) L 08/19/19 08:08 Hgb 10.2 gm/dl (11.8-15.2) L 08/19/19 08:08 Hct 31.0 % (35.5-45.6) L 08/19/19 08:08 MCV 108 fl (84-94) H 08/19/19 08:08 MCH 35 pg (28-32) H 08/19/19 08:08 MCHC 33 % (32-34) 08/19/19 08:08 RDW 18.4 % (13.2-15.2) H 08/19/19 08:08 Plt Count 315 K/mm3 (140-440) 08/19/19 08:08 Lymph % (Auto) 20.9 % (13.4-35.0) 08/19/19 08:08 [place] % (Auto) 9.0 % (0.0-7.3) H 08/19/19 08:08 Eos % (Auto) 7.8 % (0.0-4.3) H 08/19/19 08:08 Baso % (Auto) 1.0 % (0.0-1.8) 08/19/19 08:08 Lymph # 1.3 K/mm3 (1.2-5.4) 08/19/19 08:08 [place] # 0.6 K/mm3 (0.0-0.8) 08/19/19 08:08 Eos # 0.5 K/mm3 (0.0-0.4) H 08/19/19 08:08 Baso # 0.1 K/mm3 (0.0-0.1) 08/19/19 08:08 Add Manual Diff Complete 07/29/19 00:42 Total Counted 100 07/29/19 00:42 Seg Neutrophils % 61.3 % (40.0-70.0) 08/19/19 08:08 Seg Neuts % (Manual) 82.0 % (40.0-70.0) H 07/29/19 00:42 Band Neutrophils % 0 % 07/29/19 00:42 Lymphocytes % (Manual) 16.0 % (13.4-35.0) 07/29/19 00:42 Reactive Lymphs % (Man) 0 % 07/29/19 00:42 Monocytes % (Manual) 1.0 % (0.0-7.3) 07/29/19 00:42 Eosinophils % (Manual) 0 % (0.0-4.3) 07/29/19 00:42 Basophils % (Manual) 1.0 % (0.0-1.8) 07/29/19 00:42 Metamyelocytes % 0 % 07/29/19 00:42 Myelocytes % 0 % 07/29/19 00:42 Promyelocytes % 0 % 07/29/19 00:42 Blast Cells % 0 % 07/29/19 00:42 Nucleated RBC % Not Reportable 07/29/19 00:42 Seg Neutrophils # 3.8 K/mm3 (1.8-7.7) 08/19/19 08:08 Seg Neutrophils # Man 1.6 K/mm3 (1.8-7.7) L 07/29/19 00:42 Band Neutrophils # 0.0 K/mm3 07/29/19 00:42 Lymphocytes # (Manual) 0.3 K/mm3 (1.2-5.4) L 07/29/19 00:42 Abs React Lymphs (Man) 0.0 K/mm3 07/29/19 00:42 Monocytes # (Manual) 0.0 K/mm3 (0.0-0.8) 07/29/19 00:42 Eosinophils # (Manual) 0.0 K/mm3 (0.0-0.4) 07/29/19 00:42 Basophils # (Manual) 0.0 K/mm3 (0.0-0.1) 07/29/19 00:42 Metamyelocytes # 0.0 K/mm3 07/29/19 00:42 Myelocytes # 0.0 K/mm3 07/29/19 00:42 Promyelocytes # 0.0 K/mm3 07/29/19 00:42 Blast Cells # 0.0 K/mm3 07/29/19 00:42 WBC Morphology Not Reportable 07/29/19 00:42 Hypersegmented Neuts Not Reportable 07/29/19 00:42 Hyposegmented Neuts Not Reportable 07/29/19 00:42 Hypogranular Neuts Not Reportable 07/29/19 00:42 Smudge Cells Not Reportable 07/29/19 00:42 Toxic Granulation Not Reportable 07/29/19 00:42 Toxic Vacuolation Not Reportable 07/29/19 00:42 Dohle Bodies Not Reportable 07/29/19 00:42 Pelger-Huet Anomaly Not Reportable 07/29/19 00:42 Jorge A Rods Not Reportable 07/29/19 00:42 Platelet Estimate Not Reportable 07/29/19 00:42 Clumped Platelets Not Reportable 07/29/19 00:42 Plt Clumps, EDTA Not Reportable 07/29/19 00:42 Large Platelets Not Reportable 07/29/19 00:42 Giant Platelets Not Reportable 07/29/19 00:42 Platelet Satelliting Not Reportable 07/29/19 00:42 Plt Morphology Comment Not Reportable 07/29/19 00:42 RBC Morphology Not Reportable 07/29/19 00:42 Dimorphic RBCs Not Reportable 07/29/19 00:42 Polychromasia Not Reportable 07/29/19 00:42 Hypochromasia Not Reportable 07/29/19 00:42 Poikilocytosis Not Reportable 07/29/19 00:42 Anisocytosis 2+ 07/29/19 00:42 Microcytosis Not Reportable 07/29/19 00:42 Macrocytosis Not Reportable 07/29/19 00:42 Spherocytes Not Reportable 07/29/19 00:42 Pappenheimer Bodies Not Reportable 07/29/19 00:42 Sickle Cells Not Reportable 07/29/19 00:42 Target Cells Not Reportable 07/29/19 00:42 Tear Drop Cells Not Reportable 07/29/19 00:42 Ovalocytes Not Reportable 07/29/19 00:42 Helmet Cells Not Reportable 07/29/19 00:42 [place] Bodies Not Reportable 07/29/19 00:42 [place] Rings Not Reportable 07/29/19 00:42 [place] Cells Not Reportable 07/29/19 00:42 Bite Cells Not Reportable 07/29/19 00:42 Crenated Cell Not Reportable 07/29/19 00:42 Elliptocytes Not Reportable 07/29/19 00:42 Acanthocytes (Spur) Not Reportable 07/29/19 00:42 Rouleaux Not Reportable 07/29/19 00:42 Hemoglobin C Crystals Not Reportable 07/29/19 00:42 Schistocytes Not Reportable 07/29/19 00:42 Malaria parasites Not Reportable 07/29/19 00:42 Marco Bodies Not Reportable 07/29/19 00:42 Hem Pathologist Commnt No 07/29/19 00:42 PT 13.8 Sec. (12.2-14.9) 07/29/19 00:42 INR 1.09 (0.87-1.13) 07/29/19 00:42 APTT 26.5 Sec. (24.2-36.6) 07/29/19 00:42 Thrombin Time 17.2 Sec. (15.1-19.6) 07/29/19 00:42 D-Dimer 1354.97 ng/mlDDU (0-234) H 07/29/19 00:42 Sodium 137 mmol/L (137-145) 08/19/19 08:08 Potassium 4.1 mmol/L (3.6-5.0) 08/19/19 08:08 Chloride 101.0 mmol/L (98-107) 08/19/19 08:08 Carbon Dioxide 25 mmol/L (22-30) 08/19/19 08:08 Anion Gap 15 mmol/L 08/19/19 08:08 BUN 17 mg/dL (9-20) 08/19/19 08:08 Creatinine 0.8 mg/dL (0.8-1.5) 08/19/19 08:08 Estimated GFR > 60 ml/min 08/19/19 08:08 BUN/Creatinine Ratio 21 % 08/19/19 08:08 Glucose 115 mg/dL (75-100) H 08/19/19 08:08 POC Glucose 83 (70-105) 08/07/19 07:40 Lactic Acid 1.80 mmol/L (0.7-2.0) 07/29/19 12:58 Calcium 8.6 mg/dL (8.4-10.2) 08/19/19 08:08 Iron 82 ug/dL (49-181) 08/01/19 06:54 TIBC 224 mcg/dL (250-450) L 08/01/19 06:54 Ferritin 1110.0 ng/mL (13.0-400.0) H 08/01/19 06:54 Total Bilirubin 0.30 mg/dL (0.1-1.2) 08/13/19 04:39 AST 16 units/L (5-40) 08/13/19 04:39 ALT 11 units/L (7-56) 08/13/19 04:39 Alkaline Phosphatase 70 units/L (35-129) 08/13/19 04:39 Total Creatine Kinase 184 units/L (55-170) H 07/29/19 12:58 CK-MB (CK-2) 2.8 ng/mL (0.0-4.0) 07/29/19 12:58 CK-MB (CK-2) Rel Index 1.5 (0-4) 07/29/19 12:58 Troponin T 0.114 ng/mL (0.00-0.029) H* D 07/29/19 10:44 NT-Pro-B Natriuret Pep 1767 pg/mL (0-900) H 07/29/19 02:03 Total Protein 8.4 g/dL (6.3-8.2) H 08/13/19 04:39 Albumin 3.6 g/dL (3.9-5) L 08/13/19 04:39 Albumin/Globulin Ratio 0.8 % 08/13/19 04:39 Triglycerides TNR 07/29/19 00:42 Cholesterol TNR 07/29/19 00:42 LDL Cholesterol Direct TNR 07/29/19 00:42 HDL Cholesterol TNR 07/29/19 00:42 Cholesterol/HDL Ratio TNR 07/29/19 00:42 Vitamin B12 1858 pg/mL (211-911) H 08/01/19 06:54 Folate 15.28 ng/mL (7.3-26.0) 08/01/19 06:54 Urine Color Yellow (Yellow) 07/29/19 01:50 Urine Turbidity Slightly-cloudy (Clear) 07/29/19 01:50 Urine pH 5.0 (5.0-7.0) 07/29/19 01:50 Ur Specific [place] 1.017 (1.003-1.030) 07/29/19 01:50 Urine Protein 100 mg/dl mg/dL (Negative) 07/29/19 01:50 Urine Glucose (UA) Neg mg/dL (Negative) 07/29/19 01:50 Urine Ketones Neg mg/dL (Negative) 07/29/19 01:50 Urine Blood Mod (Negative) 07/29/19 01:50 Urine Nitrite Pos (Negative) 07/29/19 01:50 Urine Bilirubin Neg (Negative) 07/29/19 01:50 Urine Urobilinogen 2.0 mg/dL (<2.0) 07/29/19 01:50 Ur Leukocyte Esterase Tr (Negative) 07/29/19 01:50 Urine WBC (Auto) 10.0 /HPF (0.0-6.0) H 07/29/19 01:50 Urine RBC (Auto) 41.0 /HPF (0.0-6.0) 07/29/19 01:50 U Epithel Cells (Auto) 1.0 /HPF (0-13.0) 07/29/19 01:50 Urine Bacteria (Auto) 2+ /HPF (Negative) 07/29/19 01:50 Urine Mucus Few /HPF 07/29/19 01:50 CSF Appearance Clear 07/30/19 12:00 CSF Color Colorless 07/30/19 12:00 CSF WBC 3 /mm3 (1-10) 07/30/19 12:00 CSF RBC 75 /mm3 (0-0) 07/30/19 12:00 CSF Seg Neutrophils 5.6 % (0-6) 07/30/19 12:00 CSF Lymphocytes % 88.9 % (40-80) 07/30/19 12:00 CSF Reactive Lymphs 0 % 07/30/19 12:00 CSF Monocytes % 5.6 % (15-45) 07/30/19 12:00 CSF Eosinophils % 0 % 07/30/19 12:00 CSF Basophils 0 % 07/30/19 12:00 CSF Pathologist Review C 07/30/19 12:00 CSF Glucose 64 mg/dL 07/30/19 12:00 CSF Total Protein 31 mg/dL 07/30/19 12:00 CSF VDRL Nonreactive (Nonreactive) 07/30/19 12:00 Vancomycin Trough 19.6 ug/mL (5.0-20.0) 08/01/19 07:50 Active Medications - Current Medications Current Medications: Generic Name Dose Route Start Last Admin Trade Name Freq PRN Reason Stop Dose Admin Acetaminophen 650 mg 07/29/19 05:29 Tylenol PO Q4H PRN Pain, Mild (1-3), fever 100.5> Acetaminophen/Hydrocodone Bitart 1 each 07/29/19 21:50 08/17/19 17:52 [place] 5/325 PO 1 each Q4H PRN Administration Pain, Moderate (4-6) Albuterol 2.5 mg 08/10/19 02:48 08/11/19 17:54 Proventil IH 2.5 mg Q4HRT PRN Administration Shortness Of Breath Lipase/Protease/Amylase 1 each 08/14/19 10:[address] 10,500 Unit FEEDTUBE PRN PRN For Clogged Feeding Tube Aspirin 325 mg 07/29/19 10:00 08/20/19 11:39 Aspirin PO 325 mg QDAY LESLIE Administration Atorvastatin Calcium 80 mg 07/29/19 22:00 08/19/19 21:27 Lipitor PO 80 mg QHS LESLIE Administration Bisacodyl 10 mg 07/29/19 05:29 Dulcolax [place] QDAY PRN Constipation Enoxaparin Sodium 40 mg 08/08/19 10:00 08/19/19 21:27 Lovenox SUB-Q 40 mg QDAY@2200 LESLIE Administration Furosemide 20 mg 08/16/19 12:00 08/20/19 11:39 Lasix IV 20 mg QDAY LESLIE Administration Hydralazine HCl 10 mg 08/01/19 05:00 08/17/19 00:01 Apresoline IV 10 mg Q4HR PRN Administration Hypertension Hydralazine HCl 25 mg 08/16/19 14:00 08/20/19 14:15 Apresoline PO 25 mg Q8HR LESLIE Administration Hydroxyurea 500 mg 08/03/19 15:00 08/20/19 14:15 Hydrea PO 500 mg TuThSa@1000 LESLIE Administration Ampicillin Sodium 2 gm in 100 mls @ 100 mls/hr 08/05/19 10:00 08/20/19 14:14 Ampicillin/Ns 2 Gm/100 Ml IV 09/10/19 23:59 100 mls/hr Q4H LESLIE Administration Ceftriaxone Sodium 2 gm in 100 mls @ 200 mls/hr 08/15/19 15:00 08/20/19 02:28 Rocephin/Ns 2 Gm/100 Ml IV 09/10/19 23:59 200 mls/hr Q12H LESLIE Administration Protocol Lisinopril 30 mg 08/14/19 10:00 08/20/19 11:40 Zestril PO 30 mg QDAY LESLIE Administration Lorazepam 1 mg 07/29/19 06:42 08/14/19 06:27 Ativan IV 1 mg Q4H PRN Administration Seizures Magnesium Hydroxide 30 ml 07/29/19 05:29 Milk Of Magnesia PO Q4H PRN Constipation Metoprolol Tartrate 50 mg 07/29/19 10:00 08/20/19 11:39 Lopressor PO 50 mg BID LESLIE Administration Ondansetron HCl 4 mg 07/29/19 05:29 08/10/19 10:49 Zofran IV 4 mg Q6H PRN Administration Nausea And Vomiting Simple Syrup 15 ml 08/14/19 10:45 Simple Syrup FEEDTUBE PRN PRN Hypoglycemia Simple Syrup 30 ml 08/14/19 10:45 Simple Syrup FEEDTUBE PRN PRN Hypoglycemia Sodium Bicarbonate 325 mg 08/14/19 10:45 Sodium Bicarbonate FEEDTUBE PRN PRN For Clogged Feeding Tube Sodium Chloride 10 ml 07/29/19 05:29 08/20/19 11:45 Sodium Chloride Flush Syringe 10 Ml IV 10 ml PRN PRN Administration LINE FLUSH Nutrition/Malnutrition Assess - Dietary Evaluation Nutrition/Malnutrition Findings: Nutrition Notes Start: 07/29/19 14:00 Freq: Status: Active Protocol: Document 08/16/19 11:27 PS (Rec: 08/16/19 12:23 PS [id number]) Co-Sign 08/16/19 11:27 LP Nutrition Notes Initial or Follow up Reassessment Current Diagnosis COPD,Sepsis,Hypertension, Hyperlipidemia Other Pertinent Diagnosis Hx CVA X 2, Nonverbal,UTI,Pneu , Acute encephalopathy, Suspicion of seizure Current Diet Pureed Cardiac Diet, Overnight TF Labs/Tests Reviewed Pertinent Medications Reviewed Height 5 ft 9 in Weight 82.7 kg [place] Body Weight (kg) 72.72 BMI 26.9 Subjective/Other Information Pt recieved overnight TF of Jevity 1.2 at 75 ml/hr. Pt. was out of bed and sitting in chair during visit. Pt. recieved trays from hospital. Pt. in room during visit and feeding pt. States pt. does have appetite, but does not like the hospital food. states she brings in food from home. States he eats all of his solid food when she brings it in and has no trouble eating it. asked MD to meet with IT TECHNICAL ARCHITECT for update with swallowing difficulty because he has been eating solid food for months. Percent of energy/protein needs met: 80%/88% Burn Absent Trauma Absent Minimum of two criteria No #1 Nutrition Diagnosis Inadequate oral intake As Evidenced by Signs and Symptoms Pt. 25% of food from hospital and more from home. Diagnosis Progress(for reassessment Improved documentation) Is patient on ventilator? No Is Patient Ambulatory and/or Out of Bed Yes REE-([place]ambulatory/OOB) [ 2161.094 [id number]] Kcal/Kg value to use for calculation 25 Approximate Energy Requirements Using 2067 kcal/Kg Calculation Used for Recommendations Kcal/kg Additional Notes PRO: 81-97g (1-1.2g/kg/day) Fluid: 1mL/kcal Nutrition Intervention Change Diet Order: Continue current diet Nutrition Support: Initate Jevity 1.2 at 75 ml/h from 7 p to 7 a with 120 ml water flushes q 4 h Kcal 1,080 Protein (gm) 50 Fluid (mL) 726 Goal #1 Meet at least 75% of energy/ PRO needs via PO and cyclic TF . Anticipated Discharge Needs: Cardiac Diet Follow-Up By: 08/21/19 Additional Comments FU for PO intakes and TF tolerance
[2019-08-20] MEDS: ENOXAPARIN SUB-Q SCH (21:28)
[2019-08-21] MEDS: AMPICILLIN/NS 2 GM/100 ML 2 GM/100 ML BAG IV SCH ×6 (01:39→21:40)
[2019-08-21] MEDS: ROCEPHIN/NS 2 GM/100 ML 2 GM/100 ML BAG IV SCH ×2 (02:29→15:50)
[2019-08-21] MEDS: APRESOLINE PO SCH ×3 (05:19→21:42)
--- NOTE | 2019-08-21 07:27 | Hem/Onc Progress Note ---
Assessment and Plan 1. h/o Unresponsiveness, history of fever. ID team following. 2. JAK2 mutation. The patient was on hydroxyurea, white cell count was low, Hydrea had been held. 3. History of chronic obstructive pulmonary disease. 4. History of hypertension. 5. History of hyperlipidemia. 6. History of cerebrovascular accident. 7. History of left renal cell cancer removal. 8. V/Q scan is negative for pulmonary embolism. 9. Lumbar puncture done 10. I will follow the patient during inpatient stay. pt awake - but speech slurred follows command of moving legs and opening mouth as per old notes - pt had been with Dr Frankel He was admitted to [facility] in feb 2019 - with CVA ID - Infective endocardititis - on ABX 08/21 pt was on hydrea for CMPD - this was held as WBC was low restarted hydrea at a lower frequency WBC fluctuating as he was walking away from the hospital - he is being watched placement pending - d/w hospitalist pt will continue TIW hydrea for now - Patient Problems (1) Myeloproliferative disease Current Visit: No Status: Acute Subjective Date of service: 08/21/19 Principal diagnosis: CMPD Interval history: waiting for placement on antibiotics for I endocarditis Objective - Exam Narrative Exam: Pain - n/a General appearance - awake - but slurred speech Performance status complete dependence Eyes - no icterus ENT - no bleeding LNs cervical not palpable Neck - no LN Respiratory Normal Breath sounds - CTA anteriorly CVS S1 S2 + Extremities no calf tenderness General GI Soft - PEG + Rectal deferred male - deferred Skin warm Musculoskeletal moving extremitites Neurologically awake - slurred speech - Constitutional Vitals: Last Vital Signs Temp 98.3 F 08/21/19 04:11 Pulse 76 08/21/19 05:19 Resp 18 08/21/19 04:11 BP 118/62 08/21/19 05:19 Pulse Ox 99 08/21/19 04:11 Medications & Allergies - Medications Allergies/Adverse Reactions: Allergies No Known Allergies Allergy (Unverified 07/17/14 19:25) Home Medications: Home Medications Medication Instructions Recorded Confirmed Last Taken Type Metoprolol Tartrate 50 mg PO BID 03/05/19 07/29/19 07/28/19 History QUEtiapine 50 mg PO DAILY 03/05/19 07/29/19 Unknown History Aspirin 325 mg PO QDAY tablet 03/11/19 07/29/19 07/29/19 17:39 Rx AtorvaSTATin [Lipitor] 80 mg PO QHS tablet 03/11/19 07/29/19 Unknown Rx Lisinopril [Zestril TAB] 20 mg PO QDAY tablet 03/11/19 07/29/19 Unknown Rx traZODone [Desyrel] 50 mg PO QDAY PRN tablet 03/11/19 07/29/19 Unknown Rx Hydroxyurea [Hydrea] 500 mg PO TuThSa@1000 #30 capsule 08/05/19 Unknown Rx Active Medications: Generic Name Dose Route Start Last Admin Trade Name Freq PRN Reason Stop Dose Admin Acetaminophen 650 mg 07/29/19 05:29 Tylenol PO Q4H PRN Pain, Mild (1-3), fever 100.5> Acetaminophen/Hydrocodone Bitart 1 each 07/29/19 21:50 08/17/19 17:52 [place] 5/325 PO 1 each Q4H PRN Administration Pain, Moderate (4-6) Albuterol 2.5 mg 08/10/19 02:48 08/11/19 17:54 Proventil IH 2.5 mg Q4HRT PRN Administration Shortness Of Breath Lipase/Protease/Amylase 1 each 08/14/19 10:[address] 10,500 Unit FEEDTUBE PRN PRN For Clogged Feeding Tube Aspirin 325 mg 07/29/19 10:00 08/20/19 11:39 Aspirin PO 325 mg QDAY LESLIE Administration Atorvastatin Calcium 80 mg 07/29/19 22:00 08/20/19 21:28 Lipitor PO 80 mg QHS LESLIE Administration Bisacodyl 10 mg 07/29/19 05:29 Dulcolax [place] QDAY PRN Constipation Enoxaparin Sodium 40 mg 08/08/19 10:00 08/20/19 21:28 Lovenox SUB-Q 40 mg QDAY@2200 LESLIE Administration Furosemide 20 mg 08/16/19 12:00 08/20/19 11:39 Lasix IV 20 mg QDAY LESLIE Administration Hydralazine HCl 10 mg 08/01/19 05:00 08/17/19 00:01 Apresoline IV 10 mg Q4HR PRN Administration Hypertension Hydralazine HCl 25 mg 08/16/19 14:00 08/21/19 05:19 Apresoline PO 25 mg Q8HR LESLIE Administration Hydroxyurea 500 mg 08/03/19 15:00 08/20/19 14:15 Hydrea PO 500 mg TuThSa@1000 LESLIE Administration Ampicillin Sodium 2 gm in 100 mls @ 100 mls/hr 08/05/19 10:00 08/21/19 05:19 Ampicillin/Ns 2 Gm/100 Ml IV 09/10/19 23:59 100 mls/hr Q4H LESLIE Administration Ceftriaxone Sodium 2 gm in 100 mls @ 200 mls/hr 08/15/19 15:00 08/21/19 02:29 Rocephin/Ns 2 Gm/100 Ml IV 09/10/19 23:59 200 mls/hr Q12H LESLIE Administration Protocol Lisinopril 30 mg 08/14/19 10:00 08/20/19 11:40 Zestril PO 30 mg QDAY LESLIE Administration Lorazepam 1 mg 07/29/19 06:42 08/14/19 06:27 Ativan IV 1 mg Q4H PRN Administration Seizures Magnesium Hydroxide 30 ml 07/29/19 05:29 Milk Of Magnesia PO Q4H PRN Constipation Metoprolol Tartrate 50 mg 07/29/19 10:00 08/20/19 21:28 Lopressor PO 50 mg BID LESLIE Administration Ondansetron HCl 4 mg 07/29/19 05:29 08/10/19 10:49 Zofran IV 4 mg Q6H PRN Administration Nausea And Vomiting Simple Syrup 15 ml 08/14/19 10:45 Simple Syrup FEEDTUBE PRN PRN Hypoglycemia Simple Syrup 30 ml 08/14/19 10:45 Simple Syrup FEEDTUBE PRN PRN Hypoglycemia Sodium Bicarbonate 325 mg 08/14/19 10:45 Sodium Bicarbonate FEEDTUBE PRN PRN For Clogged Feeding Tube Sodium Chloride 10 ml 07/29/19 05:29 08/20/19 11:45 Sodium Chloride Flush Syringe 10 Ml IV 10 ml PRN PRN Administration LINE FLUSH
[2019-08-21] MEDS: ASPIRIN PO SCH (10:28)
[2019-08-21] MEDS: METOPROLOL PO SCH ×2 (10:28→21:41)
[2019-08-21] MEDS: ZESTRIL PO SCH (10:29)
[2019-08-21] MEDS: LASIX IV SCH (10:32)
--- NOTE | 2019-08-21 10:48 | Progress Note ---
Assessment and Plan Assessment and plan: Acute pulmonary edema. Continue diuresis with IV Lasix, afterload reduction with hydralazine and echocardiogram negative for diastolic flow reversal and aorta. Aortic insufficiency not severe per cardiology. Sepsis secondary to Acute mitral valve endocarditis with Enterococcus: TTE showed mitral valve vegetation. Appreciate Cardiology recs, no surgical intervention. -Picc line placed. discontinued Vancomycin. 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 -LP done, doubt meningitis, isolation discontinued - reports questionable orthopnea. Check chest x-ray. Acute encephalopathy secondary to Seizure precipitated by sepsis -Continue to monitor -Neurology consulted and input noted. Possible seizure rather than CVA also as evidenced by CT head, with no acute cva noted. Hypertension -Continue to monitor BP -cont. 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 Psychiatry nurse practitioner note reviewed: for outpatient follow-up DVT PPX -SCD's -start sq lovenox, d/w Heme/Onc Disposition. Discharge once IV abx arranged History Interval history: Patient was seen and evaluated this morning No acute events overnight Hospitalist Physical - Physical exam Narrative exam: Not in cardiopulmonary distress. The patient appeared well nourished and normally developed. Vital signs as documented. Head exam is unremarkable. No scleral icterus . Neck is without jugular venous distension, thyromegaly, or carotid bruits. Lungs are clear to auscultation. Cardiac exam reveals regular rate and Rhythm. First and second heart sounds normal. No murmurs, rubs or gallops. Abdominal exam reveals normal bowel sounds, no masses, no organomegaly and no aortic enlargement. Extremities are nonedematous and both femoral and pedal pulses are normal. 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 Right facial palsy. - Constitutional Vitals: Temp Pulse Resp BP Pulse Ox 98.1 F 72 20 148/83 98 08/21/19 07:53 08/21/19 10:29 08/21/19 07:53 08/21/19 10:29 08/21/19 07:53 General appearance: Present: no acute distress Results - Labs CBC & Chem 7: 08/19/19 08:08 08/19/19 08:08 Labs: Laboratory Last Values WBC 6.2 K/mm3 (4.5-11.0) 08/19/19 08:08 RBC 2.88 M/mm3 (3.65-5.03) L 08/19/19 08:08 Hgb 10.2 gm/dl (11.8-15.2) L 08/19/19 08:08 Hct 31.0 % (35.5-45.6) L 08/19/19 08:08 MCV 108 fl (84-94) H 08/19/19 08:08 MCH 35 pg (28-32) H 08/19/19 08:08 MCHC 33 % (32-34) 08/19/19 08:08 RDW 18.4 % (13.2-15.2) H 08/19/19 08:08 Plt Count 315 K/mm3 (140-440) 08/19/19 08:08 Lymph % (Auto) 20.9 % (13.4-35.0) 08/19/19 08:08 [place] % (Auto) 9.0 % (0.0-7.3) H 08/19/19 08:08 Eos % (Auto) 7.8 % (0.0-4.3) H 08/19/19 08:08 Baso % (Auto) 1.0 % (0.0-1.8) 08/19/19 08:08 Lymph # 1.3 K/mm3 (1.2-5.4) 08/19/19 08:08 [place] # 0.6 K/mm3 (0.0-0.8) 08/19/19 08:08 Eos # 0.5 K/mm3 (0.0-0.4) H 08/19/19 08:08 Baso # 0.1 K/mm3 (0.0-0.1) 08/19/19 08:08 Add Manual Diff Complete 07/29/19 00:42 Total Counted 100 07/29/19 00:42 Seg Neutrophils % 61.3 % (40.0-70.0) 08/19/19 08:08 Seg Neuts % (Manual) 82.0 % (40.0-70.0) H 07/29/19 00:42 Band Neutrophils % 0 % 07/29/19 00:42 Lymphocytes % (Manual) 16.0 % (13.4-35.0) 07/29/19 00:42 Reactive Lymphs % (Man) 0 % 07/29/19 00:42 Monocytes % (Manual) 1.0 % (0.0-7.3) 07/29/19 00:42 Eosinophils % (Manual) 0 % (0.0-4.3) 07/29/19 00:42 Basophils % (Manual) 1.0 % (0.0-1.8) 07/29/19 00:42 Metamyelocytes % 0 % 07/29/19 00:42 Myelocytes % 0 % 07/29/19 00:42 Promyelocytes % 0 % 07/29/19 00:42 Blast Cells % 0 % 07/29/19 00:42 Nucleated RBC % Not Reportable 07/29/19 00:42 Seg Neutrophils # 3.8 K/mm3 (1.8-7.7) 08/19/19 08:08 Seg Neutrophils # Man 1.6 K/mm3 (1.8-7.7) L 07/29/19 00:42 Band Neutrophils # 0.0 K/mm3 07/29/19 00:42 Lymphocytes # (Manual) 0.3 K/mm3 (1.2-5.4) L 07/29/19 00:42 Abs React Lymphs (Man) 0.0 K/mm3 07/29/19 00:42 Monocytes # (Manual) 0.0 K/mm3 (0.0-0.8) 07/29/19 00:42 Eosinophils # (Manual) 0.0 K/mm3 (0.0-0.4) 07/29/19 00:42 Basophils # (Manual) 0.0 K/mm3 (0.0-0.1) 07/29/19 00:42 Metamyelocytes # 0.0 K/mm3 07/29/19 00:42 Myelocytes # 0.0 K/mm3 07/29/19 00:42 Promyelocytes # 0.0 K/mm3 07/29/19 00:42 Blast Cells # 0.0 K/mm3 07/29/19 00:42 WBC Morphology Not Reportable 07/29/19 00:42 Hypersegmented Neuts Not Reportable 07/29/19 00:42 Hyposegmented Neuts Not Reportable 07/29/19 00:42 Hypogranular Neuts Not Reportable 07/29/19 00:42 Smudge Cells Not Reportable 07/29/19 00:42 Toxic Granulation Not Reportable 07/29/19 00:42 Toxic Vacuolation Not Reportable 07/29/19 00:42 Dohle Bodies Not Reportable 07/29/19 00:42 Pelger-Huet Anomaly Not Reportable 07/29/19 00:42 Jorge A Rods Not Reportable 07/29/19 00:42 Platelet Estimate Not Reportable 07/29/19 00:42 Clumped Platelets Not Reportable 07/29/19 00:42 Plt Clumps, EDTA Not Reportable 07/29/19 00:42 Large Platelets Not Reportable 07/29/19 00:42 Giant Platelets Not Reportable 07/29/19 00:42 Platelet Satelliting Not Reportable 07/29/19 00:42 Plt Morphology Comment Not Reportable 07/29/19 00:42 RBC Morphology Not Reportable 07/29/19 00:42 Dimorphic RBCs Not Reportable 07/29/19 00:42 Polychromasia Not Reportable 07/29/19 00:42 Hypochromasia Not Reportable 07/29/19 00:42 Poikilocytosis Not Reportable 07/29/19 00:42 Anisocytosis 2+ 07/29/19 00:42 Microcytosis Not Reportable 07/29/19 00:42 Macrocytosis Not Reportable 07/29/19 00:42 Spherocytes Not Reportable 07/29/19 00:42 Pappenheimer Bodies Not Reportable 07/29/19 00:42 Sickle Cells Not Reportable 07/29/19 00:42 Target Cells Not Reportable 07/29/19 00:42 Tear Drop Cells Not Reportable 07/29/19 00:42 Ovalocytes Not Reportable 07/29/19 00:42 Helmet Cells Not Reportable 07/29/19 00:42 Antunez-Eustace Bodies Not Reportable 07/29/19 00:42 [place] Rings Not Reportable 07/29/19 00:42 [place] Cells Not Reportable 07/29/19 00:42 Bite Cells Not Reportable 07/29/19 00:42 Crenated Cell Not Reportable 07/29/19 00:42 Elliptocytes Not Reportable 07/29/19 00:42 Acanthocytes (Spur) Not Reportable 07/29/19 00:42 Rouleaux Not Reportable 07/29/19 00:42 Hemoglobin C Crystals Not Reportable 07/29/19 00:42 Schistocytes Not Reportable 07/29/19 00:42 Malaria parasites Not Reportable 07/29/19 00:42 Marco Bodies Not Reportable 07/29/19 00:42 Hem Pathologist Commnt No 07/29/19 00:42 PT 13.8 Sec. (12.2-14.9) 07/29/19 00:42 INR 1.09 (0.87-1.13) 07/29/19 00:42 APTT 26.5 Sec. (24.2-36.6) 07/29/19 00:42 Thrombin Time 17.2 Sec. (15.1-19.6) 07/29/19 00:42 D-Dimer 1354.97 ng/mlDDU (0-234) H 07/29/19 00:42 Sodium 137 mmol/L (137-145) 08/19/19 08:08 Potassium 4.1 mmol/L (3.6-5.0) 08/19/19 08:08 Chloride 101.0 mmol/L (98-107) 08/19/19 08:08 Carbon Dioxide 25 mmol/L (22-30) 08/19/19 08:08 Anion Gap 15 mmol/L 08/19/19 08:08 BUN 17 mg/dL (9-20) 08/19/19 08:08 Creatinine 0.8 mg/dL (0.8-1.5) 08/19/19 08:08 Estimated GFR > 60 ml/min 08/19/19 08:08 BUN/Creatinine Ratio 21 % 08/19/19 08:08 Glucose 115 mg/dL (75-100) H 08/19/19 08:08 POC Glucose 83 (70-105) 08/07/19 07:40 Lactic Acid 1.80 mmol/L (0.7-2.0) 07/29/19 12:58 Calcium 8.6 mg/dL (8.4-10.2) 08/19/19 08:08 Iron 82 ug/dL (49-181) 08/01/19 06:54 TIBC 224 mcg/dL (250-450) L 08/01/19 06:54 Ferritin 1110.0 ng/mL (13.0-400.0) H 08/01/19 06:54 Total Bilirubin 0.30 mg/dL (0.1-1.2) 08/13/19 04:39 AST 16 units/L (5-40) 08/13/19 04:39 ALT 11 units/L (7-56) 08/13/19 04:39 Alkaline Phosphatase 70 units/L (35-129) 08/13/19 04:39 Total Creatine Kinase 184 units/L (55-170) H 07/29/19 12:58 CK-MB (CK-2) 2.8 ng/mL (0.0-4.0) 07/29/19 12:58 CK-MB (CK-2) Rel Index 1.5 (0-4) 07/29/19 12:58 Troponin T 0.114 ng/mL (0.00-0.029) H* D 07/29/19 10:44 NT-Pro-B Natriuret Pep 1767 pg/mL (0-900) H 07/29/19 02:03 Total Protein 8.4 g/dL (6.3-8.2) H 08/13/19 04:39 Albumin 3.6 g/dL (3.9-5) L 08/13/19 04:39 Albumin/Globulin Ratio 0.8 % 08/13/19 04:39 Triglycerides TNR 07/29/19 00:42 Cholesterol TNR 07/29/19 00:42 LDL Cholesterol Direct TNR 07/29/19 00:42 HDL Cholesterol TNR 07/29/19 00:42 Cholesterol/HDL Ratio TNR 07/29/19 00:42 Vitamin B12 1858 pg/mL (211-911) H 08/01/19 06:54 Folate 15.28 ng/mL (7.3-26.0) 08/01/19 06:54 Urine Color Yellow (Yellow) 07/29/19 01:50 Urine Turbidity Slightly-cloudy (Clear) 07/29/19 01:50 Urine pH 5.0 (5.0-7.0) 07/29/19 01:50 Ur Specific [place] 1.017 (1.003-1.030) 07/29/19 01:50 Urine Protein 100 mg/dl mg/dL (Negative) 07/29/19 01:50 Urine Glucose (UA) Neg mg/dL (Negative) 07/29/19 01:50 Urine Ketones Neg mg/dL (Negative) 07/29/19 01:50 Urine Blood Mod (Negative) 07/29/19 01:50 Urine Nitrite Pos (Negative) 07/29/19 01:50 Urine Bilirubin Neg (Negative) 07/29/19 01:50 Urine Urobilinogen 2.0 mg/dL (<2.0) 07/29/19 01:50 Ur Leukocyte Esterase Tr (Negative) 07/29/19 01:50 Urine WBC (Auto) 10.0 /HPF (0.0-6.0) H 07/29/19 01:50 Urine RBC (Auto) 41.0 /HPF (0.0-6.0) 07/29/19 01:50 U Epithel Cells (Auto) 1.0 /HPF (0-13.0) 07/29/19 01:50 Urine Bacteria (Auto) 2+ /HPF (Negative) 07/29/19 01:50 Urine Mucus Few /HPF 07/29/19 01:50 CSF Appearance Clear 07/30/19 12:00 CSF Color Colorless 07/30/19 12:00 CSF WBC 3 /mm3 (1-10) 07/30/19 12:00 CSF RBC 75 /mm3 (0-0) 07/30/19 12:00 CSF Seg Neutrophils 5.6 % (0-6) 07/30/19 12:00 CSF Lymphocytes % 88.9 % (40-80) 07/30/19 12:00 CSF Reactive Lymphs 0 % 07/30/19 12:00 CSF Monocytes % 5.6 % (15-45) 07/30/19 12:00 CSF Eosinophils % 0 % 07/30/19 12:00 CSF Basophils 0 % 07/30/19 12:00 CSF Pathologist Review C 07/30/19 12:00 CSF Glucose 64 mg/dL 07/30/19 12:00 CSF Total Protein 31 mg/dL 07/30/19 12:00 CSF VDRL Nonreactive (Nonreactive) 07/30/19 12:00 Vancomycin Trough 19.6 ug/mL (5.0-20.0) 08/01/19 07:50 Active Medications - Current Medications Current Medications: Generic Name Dose Route Start Last Admin Trade Name Freq PRN Reason Stop Dose Admin Acetaminophen 650 mg 07/29/19 05:29 Tylenol PO Q4H PRN Pain, Mild (1-3), fever 100.5> Acetaminophen/Hydrocodone Bitart 1 each 07/29/19 21:50 08/17/19 17:52 [place] 5/325 PO 1 each Q4H PRN Administration Pain, Moderate (4-6) Albuterol 2.5 mg 08/10/19 02:48 08/11/19 17:54 Proventil IH 2.5 mg Q4HRT PRN Administration Shortness Of Breath Lipase/Protease/Amylase 1 each 08/14/19 10:[address] 10,500 Unit FEEDTUBE PRN PRN For Clogged Feeding Tube Aspirin 325 mg 07/29/19 10:00 08/21/19 10:28 Aspirin PO 325 mg QDAY LESLIE Administration Atorvastatin Calcium 80 mg 07/29/19 22:00 08/20/19 21:28 Lipitor PO 80 mg QHS LESLEI Administration Bisacodyl 10 mg 07/29/19 05:29 Dulcolax NE QDAY PRN Constipation Enoxaparin Sodium 40 mg 08/08/19 10:00 08/20/19 21:28 Lovenox SUB-Q 40 mg QDAY@2200 LESLIE Administration Furosemide 20 mg 08/16/19 12:00 08/21/19 10:32 Lasix IV 20 mg QDAY LESLIE Administration Hydralazine HCl 10 mg 08/01/19 05:00 08/17/19 00:01 Apresoline IV 10 mg Q4HR PRN Administration Hypertension Hydralazine HCl 25 mg 08/16/19 14:00 08/21/19 05:19 Apresoline PO 25 mg Q8HR LESLIE Administration Hydroxyurea 500 mg 08/03/19 15:00 08/20/19 14:15 Hydrea PO 500 mg TuThSa@1000 LESLIE Administration Ampicillin Sodium 2 gm in 100 mls @ 100 mls/hr 08/05/19 10:00 08/21/19 10:28 Ampicillin/Ns 2 Gm/100 Ml IV 09/10/19 23:59 100 mls/hr Q4H LESLIE Administration Ceftriaxone Sodium 2 gm in 100 mls @ 200 mls/hr 08/15/19 15:00 08/21/19 02:29 Rocephin/Ns 2 Gm/100 Ml IV 09/10/19 23:59 200 mls/hr Q12H LESLIE Administration Protocol Lisinopril 30 mg 08/14/19 10:00 08/21/19 10:29 Zestril PO 30 mg QDAY LESLIE Administration Lorazepam 1 mg 07/29/19 06:42 08/14/19 06:27 Ativan IV 1 mg Q4H PRN Administration Seizures Magnesium Hydroxide 30 ml 07/29/19 05:29 Milk Of Magnesia PO Q4H PRN Constipation Metoprolol Tartrate 50 mg 07/29/19 10:00 08/21/19 10:28 Lopressor PO 50 mg BID LESLIE Administration Ondansetron HCl 4 mg 07/29/19 05:29 08/10/19 10:49 Zofran IV 4 mg Q6H PRN Administration Nausea And Vomiting Simple Syrup 15 ml 08/14/19 10:45 Simple Syrup FEEDTUBE PRN PRN Hypoglycemia Simple Syrup 30 ml 08/14/19 10:45 Simple Syrup FEEDTUBE PRN PRN Hypoglycemia Sodium Bicarbonate 325 mg 08/14/19 10:45 Sodium Bicarbonate FEEDTUBE PRN PRN For Clogged Feeding Tube Sodium Chloride 10 ml 07/29/19 05:29 08/20/19 11:45 Sodium Chloride Flush Syringe 10 Ml IV 10 ml PRN PRN Administration LINE FLUSH Nutrition/Malnutrition Assess - Dietary Evaluation Nutrition/Malnutrition Findings: Nutrition Notes Start: 07/29/19 14:00 Freq: Status: Active Protocol: Document 08/16/19 11:27 PS (Rec: 08/16/19 12:23 PS [id number]) Co-Sign 08/16/19 11:27 LP Nutrition Notes Initial or Follow up Reassessment Current Diagnosis COPD,Sepsis,Hypertension, Hyperlipidemia Other Pertinent Diagnosis Hx CVA X 2, Nonverbal,UTI,Pneu , Acute encephalopathy, Suspicion of seizure Current Diet Pureed Cardiac Diet, Overnight TF Labs/Tests Reviewed Pertinent Medications Reviewed Height 5 ft 9 in Weight 82.7 kg [place] Body Weight (kg) 72.72 BMI 26.9 Subjective/Other Information Pt recieved overnight TF of Jevity 1.2 at 75 ml/hr. Pt. was out of bed and sitting in chair during visit. Pt. recieved trays from hospital. Pt. in room during visit and feeding pt. States pt. does have appetite, but does not like the hospital food. states she brings in food from home. States he eats all of his solid food when she brings it in and has no trouble eating it. asked MD to meet with IMMIGRATION CONSULTANT for update with swallowing difficulty because he has been eating solid food for months. Percent of energy/protein needs met: 80%/88% Burn Absent Trauma Absent Minimum of two criteria No #1 Nutrition Diagnosis Inadequate oral intake As Evidenced by Signs and Symptoms Pt. 25% of food from hospital and more from home. Diagnosis Progress(for reassessment Improved documentation) Is patient on ventilator? No Is Patient Ambulatory and/or Out of Bed Yes REE-([facility]-ambulatory/OOB) [ 2161.094 [id number]] Kcal/Kg value to use for calculation 25 Approximate Energy Requirements Using 2067 kcal/Kg Calculation Used for Recommendations Kcal/kg Additional Notes PRO: 81-97g (1-1.2g/kg/day) Fluid: 1mL/kcal Nutrition Intervention Change Diet Order: Continue current diet Nutrition Support: Initate Jevity 1.2 at 75 ml/h from 7 p to 7 a with 120 ml water flushes q 4 h Kcal 1,080 Protein (gm) 50 Fluid (mL) 726 Goal #1 Meet at least 75% of energy/ PRO needs via PO and cyclic TF . Anticipated Discharge Needs: Cardiac Diet Follow-Up By: 08/21/19 Additional Comments FU for PO intakes and TF tolerance
[2019-08-21] MEDS ORDERED: AMPICILLIN/NS 2 GM/100 ML 2 GM/100 ML BAG IV SCH (12:00)
[2019-08-21] MEDS: HYDROXYUREA PO SCH (19:21)
[2019-08-21] MEDS: NORCO 5/325 PO PRN (21:40)
[2019-08-21] MEDS: ENOXAPARIN SUB-Q SCH (21:42)
[2019-08-22] MEDS: AMPICILLIN/NS 2 GM/100 ML 2 GM/100 ML BAG IV SCH ×6 (01:06→22:30)
[2019-08-22] MEDS: ROCEPHIN/NS 2 GM/100 ML 2 GM/100 ML BAG IV SCH ×2 (02:30→15:30)
[2019-08-22] MEDS: APRESOLINE PO SCH ×3 (05:21→22:31)
--- NOTE | 2019-08-22 07:16 | Hem/Onc Progress Note ---
Assessment and Plan 1. h/o Unresponsiveness, history of fever. ID team following. 2. JAK2 mutation. The patient was on hydroxyurea, white cell count was low, Hydrea had been held. 3. History of chronic obstructive pulmonary disease. 4. History of hypertension. 5. History of hyperlipidemia. 6. History of cerebrovascular accident. 7. History of left renal cell cancer removal. 8. V/Q scan is negative for pulmonary embolism. 9. Lumbar puncture done 10. I will follow the patient during inpatient stay. pt awake - but speech slurred follows command of moving legs and opening mouth as per old notes - pt had been with Dr Frankel He was admitted to [facility] in feb 2019 - with CVA ID - Infective endocardititis - on ABX 08/22 pt was on hydrea for CMPD - this was held as WBC was low restarted hydrea at a lower frequency WBC fluctuating as he was walking away from the hospital - he is being watched placement pending pt will continue TIW hydrea for now - Patient Problems (1) Myeloproliferative disease Current Visit: No Status: Acute Subjective Date of service: 08/22/19 Principal diagnosis: Ch MPD Interval history: no bleeding placement pending Objective - Exam Narrative Exam: Pain - n/a General appearance - awake - but slurred speech Performance status complete dependence Eyes - no icterus ENT - no bleeding LNs cervical not palpable Neck - no LN Respiratory Normal Breath sounds - CTA anteriorly CVS S1 S2 + Extremities no calf tenderness General GI Soft - PEG + Rectal deferred male - deferred Skin warm Musculoskeletal moving extremitites Neurologically awake - slurred speech - Constitutional Vitals: Last Vital Signs Temp 98.0 F 08/22/19 03:57 Pulse 64 08/22/19 05:21 Resp 18 08/22/19 03:57 BP 126/64 08/22/19 05:21 Pulse Ox 93 08/22/19 03:57 Medications & Allergies - Medications Allergies/Adverse Reactions: Allergies No Known Allergies Allergy (Unverified 07/17/14 19:25) Home Medications: Home Medications Medication Instructions Recorded Confirmed Last Taken Type Metoprolol Tartrate 50 mg PO BID 03/05/19 07/29/19 07/28/19 History QUEtiapine 50 mg PO DAILY 03/05/19 07/29/19 Unknown History Aspirin 325 mg PO QDAY tablet 03/11/19 07/29/19 07/29/19 17:39 Rx AtorvaSTATin [Lipitor] 80 mg PO QHS tablet 03/11/19 07/29/19 Unknown Rx Lisinopril [Zestril TAB] 20 mg PO QDAY tablet 03/11/19 07/29/19 Unknown Rx traZODone [Desyrel] 50 mg PO QDAY PRN tablet 03/11/19 07/29/19 Unknown Rx Hydroxyurea [Hydrea] 500 mg PO TuThSa@1000 #30 capsule 08/05/19 Unknown Rx Active Medications: Generic Name Dose Route Start Last Admin Trade Name Freq PRN Reason Stop Dose Admin Acetaminophen 650 mg 07/29/19 05:29 Tylenol PO Q4H PRN Pain, Mild (1-3), fever 100.5> Acetaminophen/Hydrocodone Bitart 1 each 07/29/19 21:50 08/21/19 21:40 [place] 5/325 PO 1 each Q4H PRN Administration Pain, Moderate (4-6) Albuterol 2.5 mg 08/10/19 02:48 08/11/19 17:54 Proventil IH 2.5 mg Q4HRT PRN Administration Shortness Of Breath Lipase/Protease/Amylase 1 each 08/14/19 10:[address] 10,500 Unit FEEDTUBE PRN PRN For Clogged Feeding Tube Aspirin 325 mg 07/29/19 10:00 08/21/19 10:28 Aspirin PO 325 mg QDAY LESLIE Administration Atorvastatin Calcium 80 mg 07/29/19 22:00 08/21/19 21:40 Lipitor PO 80 mg QHS LESLIE Administration Bisacodyl 10 mg 07/29/19 05:29 Dulcolax NM QDAY PRN Constipation Enoxaparin Sodium 40 mg 08/08/19 10:00 08/21/19 21:42 Lovenox SUB-Q 40 mg QDAY@2200 LESLIE Administration Furosemide 20 mg 08/16/19 12:00 08/21/19 10:32 Lasix IV 20 mg QDAY LESLIE Administration Hydralazine HCl 10 mg 08/01/19 05:00 08/17/19 00:01 Apresoline IV 10 mg Q4HR PRN Administration Hypertension Hydralazine HCl 25 mg 08/16/19 14:00 08/22/19 05:21 Apresoline PO 25 mg Q8HR LESLIE Administration Hydroxyurea 500 mg 08/03/19 15:00 08/21/19 19:21 Hydrea PO Not Given TuThSa@1000 LESLIE Ampicillin Sodium 2 gm in 100 mls @ 100 mls/hr 08/05/19 10:00 08/22/19 05:21 Ampicillin/Ns 2 Gm/100 Ml IV 09/10/19 23:59 100 mls/hr Q4H LESLIE Administration Ceftriaxone Sodium 2 gm in 100 mls @ 200 mls/hr 08/15/19 15:00 08/22/19 02:30 Rocephin/Ns 2 Gm/100 Ml IV 09/10/19 23:59 200 mls/hr Q12H LESLIE Administration Protocol Lisinopril 30 mg 08/14/19 10:00 08/21/19 10:29 Zestril PO 30 mg QDAY LESLIE Administration Lorazepam 1 mg 07/29/19 06:42 08/14/19 06:27 Ativan IV 1 mg Q4H PRN Administration Seizures Magnesium Hydroxide 30 ml 07/29/19 05:29 Milk Of Magnesia PO Q4H PRN Constipation Metoprolol Tartrate 50 mg 07/29/19 10:00 08/21/19 21:41 Lopressor PO 50 mg BID LESLIE Administration Ondansetron HCl 4 mg 07/29/19 05:29 08/10/19 10:49 Zofran IV 4 mg Q6H PRN Administration Nausea And Vomiting Simple Syrup 15 ml 08/14/19 10:45 Simple Syrup FEEDTUBE PRN PRN Hypoglycemia Simple Syrup 30 ml 08/14/19 10:45 Simple Syrup FEEDTUBE PRN PRN Hypoglycemia Sodium Bicarbonate 325 mg 08/14/19 10:45 Sodium Bicarbonate FEEDTUBE PRN PRN For Clogged Feeding Tube Sodium Chloride 10 ml 07/29/19 05:29 08/20/19 11:45 Sodium Chloride Flush Syringe 10 Ml IV 10 ml PRN PRN Administration LINE FLUSH
[2019-08-22] MEDS: ASPIRIN PO SCH (10:13)
[2019-08-22] MEDS: ZESTRIL PO SCH (10:14)
[2019-08-22] MEDS: METOPROLOL PO SCH ×2 (10:15→22:31)
[2019-08-22] MEDS: LASIX IV SCH (10:15)
[2019-08-22] MEDS: HYDROXYUREA PO SCH (13:13)
--- NOTE | 2019-08-22 13:45 | Progress Note ---
Assessment and Plan Assessment and plan: Acute pulmonary edema. Continue diuresis with IV Lasix, afterload reduction with hydralazine and echocardiogram negative for diastolic flow reversal and aorta. Aortic insufficiency not severe per cardiology. Sepsis secondary to Acute mitral valve endocarditis with Enterococcus: TTE showed mitral valve vegetation. Appreciate Cardiology recs, no surgical intervention. -Picc line placed. discontinued Vancomycin. 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 -LP done, doubt meningitis, isolation discontinued - reports questionable orthopnea. Check chest x-ray. Acute encephalopathy secondary to Seizure precipitated by sepsis -Continue to monitor -Neurology consulted and input noted. Possible seizure rather than CVA also as evidenced by CT head, with no acute cva noted. Hypertension -Continue to monitor BP -cont. 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 Psychiatry nurse practitioner note reviewed: for outpatient follow-up DVT PPX -SCD's -start sq lovenox, d/w Heme/Onc Disposition. Discharge once IV abx arranged History Interval history: Patient was seen and evaluated this morning No acute events overnight Hospitalist Physical - Physical exam Narrative exam: Not in cardiopulmonary distress. The patient appeared well nourished and normally developed. Vital signs as documented. Head exam is unremarkable. No scleral icterus . Neck is without jugular venous distension, thyromegaly, or carotid bruits. Lungs are clear to auscultation. Cardiac exam reveals regular rate and Rhythm. First and second heart sounds normal. No murmurs, rubs or gallops. Abdominal exam reveals normal bowel sounds, no masses, no organomegaly and no aortic enlargement. Extremities are nonedematous and both femoral and pedal pulses are normal. MICA SPLITTER: Alert and oriented. Right facial palsy. - Constitutional Vitals: Temp Pulse Resp BP Pulse Ox 97.7 F 78 18 129/74 97 08/22/19 07:34 08/22/19 10:15 08/22/19 07:34 08/22/19 10:15 08/22/19 07:34 General appearance: Present: no acute distress Results - Labs CBC & Chem 7: 08/19/19 08:08 08/19/19 08:08 Labs: Laboratory Last Values WBC 6.2 K/mm3 (4.5-11.0) 08/19/19 08:08 RBC 2.88 M/mm3 (3.65-5.03) L 08/19/19 08:08 Hgb 10.2 gm/dl (11.8-15.2) L 08/19/19 08:08 Hct 31.0 % (35.5-45.6) L 08/19/19 08:08 MCV 108 fl (84-94) H 08/19/19 08:08 MCH 35 pg (28-32) H 08/19/19 08:08 MCHC 33 % (32-34) 08/19/19 08:08 RDW 18.4 % (13.2-15.2) H 08/19/19 08:08 Plt Count 315 K/mm3 (140-440) 08/19/19 08:08 Lymph % (Auto) 20.9 % (13.4-35.0) 08/19/19 08:08 [place] % (Auto) 9.0 % (0.0-7.3) H 08/19/19 08:08 Eos % (Auto) 7.8 % (0.0-4.3) H 08/19/19 08:08 Baso % (Auto) 1.0 % (0.0-1.8) 08/19/19 08:08 Lymph # 1.3 K/mm3 (1.2-5.4) 08/19/19 08:08 [place] # 0.6 K/mm3 (0.0-0.8) 08/19/19 08:08 Eos # 0.5 K/mm3 (0.0-0.4) H 08/19/19 08:08 Baso # 0.1 K/mm3 (0.0-0.1) 08/19/19 08:08 Add Manual Diff Complete 07/29/19 00:42 Total Counted 100 07/29/19 00:42 Seg Neutrophils % 61.3 % (40.0-70.0) 08/19/19 08:08 Seg Neuts % (Manual) 82.0 % (40.0-70.0) H 07/29/19 00:42 Band Neutrophils % 0 % 07/29/19 00:42 Lymphocytes % (Manual) 16.0 % (13.4-35.0) 07/29/19 00:42 Reactive Lymphs % (Man) 0 % 07/29/19 00:42 Monocytes % (Manual) 1.0 % (0.0-7.3) 07/29/19 00:42 Eosinophils % (Manual) 0 % (0.0-4.3) 07/29/19 00:42 Basophils % (Manual) 1.0 % (0.0-1.8) 07/29/19 00:42 Metamyelocytes % 0 % 07/29/19 00:42 Myelocytes % 0 % 07/29/19 00:42 Promyelocytes % 0 % 07/29/19 00:42 Blast Cells % 0 % 07/29/19 00:42 Nucleated RBC % Not Reportable 07/29/19 00:42 Seg Neutrophils # 3.8 K/mm3 (1.8-7.7) 08/19/19 08:08 Seg Neutrophils # Man 1.6 K/mm3 (1.8-7.7) L 07/29/19 00:42 Band Neutrophils # 0.0 K/mm3 07/29/19 00:42 Lymphocytes # (Manual) 0.3 K/mm3 (1.2-5.4) L 07/29/19 00:42 Abs React Lymphs (Man) 0.0 K/mm3 07/29/19 00:42 Monocytes # (Manual) 0.0 K/mm3 (0.0-0.8) 07/29/19 00:42 Eosinophils # (Manual) 0.0 K/mm3 (0.0-0.4) 07/29/19 00:42 Basophils # (Manual) 0.0 K/mm3 (0.0-0.1) 07/29/19 00:42 Metamyelocytes # 0.0 K/mm3 07/29/19 00:42 Myelocytes # 0.0 K/mm3 07/29/19 00:42 Promyelocytes # 0.0 K/mm3 07/29/19 00:42 Blast Cells # 0.0 K/mm3 07/29/19 00:42 WBC Morphology Not Reportable 07/29/19 00:42 Hypersegmented Neuts Not Reportable 07/29/19 00:42 Hyposegmented Neuts Not Reportable 07/29/19 00:42 Hypogranular Neuts Not Reportable 07/29/19 00:42 Smudge Cells Not Reportable 07/29/19 00:42 Toxic Granulation Not Reportable 07/29/19 00:42 Toxic Vacuolation Not Reportable 07/29/19 00:42 Dohle Bodies Not Reportable 07/29/19 00:42 Pelger-Huet Anomaly Not Reportable 07/29/19 00:42 Jroge A Rods Not Reportable 07/29/19 00:42 Platelet Estimate Not Reportable 07/29/19 00:42 Clumped Platelets Not Reportable 07/29/19 00:42 Plt Clumps, EDTA Not Reportable 07/29/19 00:42 Large Platelets Not Reportable 07/29/19 00:42 Giant Platelets Not Reportable 07/29/19 00:42 Platelet Satelliting Not Reportable 07/29/19 00:42 Plt Morphology Comment Not Reportable 07/29/19 00:42 RBC Morphology Not Reportable 07/29/19 00:42 Dimorphic RBCs Not Reportable 07/29/19 00:42 Polychromasia Not Reportable 07/29/19 00:42 Hypochromasia Not Reportable 07/29/19 00:42 Poikilocytosis Not Reportable 07/29/19 00:42 Anisocytosis 2+ 07/29/19 00:42 Microcytosis Not Reportable 07/29/19 00:42 Macrocytosis Not Reportable 07/29/19 00:42 Spherocytes Not Reportable 07/29/19 00:42 Pappenheimer Bodies Not Reportable 07/29/19 00:42 Sickle Cells Not Reportable 07/29/19 00:42 Target Cells Not Reportable 07/29/19 00:42 Tear Drop Cells Not Reportable 07/29/19 00:42 Ovalocytes Not Reportable 07/29/19 00:42 Helmet Cells Not Reportable 07/29/19 00:42 [place] Bodies Not Reportable 07/29/19 00:42 [place] Rings Not Reportable 07/29/19 00:42 Dracut Cells Not Reportable 07/29/19 00:42 Bite Cells Not Reportable 07/29/19 00:42 Crenated Cell Not Reportable 07/29/19 00:42 Elliptocytes Not Reportable 07/29/19 00:42 Acanthocytes (Spur) Not Reportable 07/29/19 00:42 Rouleaux Not Reportable 07/29/19 00:42 Hemoglobin C Crystals Not Reportable 07/29/19 00:42 Schistocytes Not Reportable 07/29/19 00:42 Malaria parasites Not Reportable 07/29/19 00:42 Marco Bodies Not Reportable 07/29/19 00:42 Hem Pathologist Commnt No 07/29/19 00:42 PT 13.8 Sec. (12.2-14.9) 07/29/19 00:42 INR 1.09 (0.87-1.13) 07/29/19 00:42 APTT 26.5 Sec. (24.2-36.6) 07/29/19 00:42 Thrombin Time 17.2 Sec. (15.1-19.6) 07/29/19 00:42 D-Dimer 1354.97 ng/mlDDU (0-234) H 07/29/19 00:42 Sodium 137 mmol/L (137-145) 08/19/19 08:08 Potassium 4.1 mmol/L (3.6-5.0) 08/19/19 08:08 Chloride 101.0 mmol/L (98-107) 08/19/19 08:08 Carbon Dioxide 25 mmol/L (22-30) 08/19/19 08:08 Anion Gap 15 mmol/L 08/19/19 08:08 BUN 17 mg/dL (9-20) 08/19/19 08:08 Creatinine 0.8 mg/dL (0.8-1.5) 08/19/19 08:08 Estimated GFR > 60 ml/min 08/19/19 08:08 BUN/Creatinine Ratio 21 % 08/19/19 08:08 Glucose 115 mg/dL (75-100) H 08/19/19 08:08 POC Glucose 83 (70-105) 08/07/19 07:40 Lactic Acid 1.80 mmol/L (0.7-2.0) 07/29/19 12:58 Calcium 8.6 mg/dL (8.4-10.2) 08/19/19 08:08 Iron 82 ug/dL (49-181) 08/01/19 06:54 TIBC 224 mcg/dL (250-450) L 08/01/19 06:54 Ferritin 1110.0 ng/mL (13.0-400.0) H 08/01/19 06:54 Total Bilirubin 0.30 mg/dL (0.1-1.2) 08/13/19 04:39 AST 16 units/L (5-40) 08/13/19 04:39 ALT 11 units/L (7-56) 08/13/19 04:39 Alkaline Phosphatase 70 units/L (35-129) 08/13/19 04:39 Total Creatine Kinase 184 units/L (55-170) H 07/29/19 12:58 CK-MB (CK-2) 2.8 ng/mL (0.0-4.0) 07/29/19 12:58 CK-MB (CK-2) Rel Index 1.5 (0-4) 07/29/19 12:58 Troponin T 0.114 ng/mL (0.00-0.029) H* D 07/29/19 10:44 NT-Pro-B Natriuret Pep 1767 pg/mL (0-900) H 07/29/19 02:03 Total Protein 8.4 g/dL (6.3-8.2) H 08/13/19 04:39 Albumin 3.6 g/dL (3.9-5) L 08/13/19 04:39 Albumin/Globulin Ratio 0.8 % 08/13/19 04:39 Triglycerides TNR 07/29/19 00:42 Cholesterol TNR 07/29/19 00:42 LDL Cholesterol Direct TNR 07/29/19 00:42 HDL Cholesterol TNR 07/29/19 00:42 Cholesterol/HDL Ratio TNR 07/29/19 00:42 Vitamin B12 1858 pg/mL (211-911) H 08/01/19 06:54 Folate 15.28 ng/mL (7.3-26.0) 08/01/19 06:54 Urine Color Yellow (Yellow) 07/29/19 01:50 Urine Turbidity Slightly-cloudy (Clear) 07/29/19 01:50 Urine pH 5.0 (5.0-7.0) 07/29/19 01:50 Ur Specific [place] 1.017 (1.003-1.030) 07/29/19 01:50 Urine Protein 100 mg/dl mg/dL (Negative) 07/29/19 01:50 Urine Glucose (UA) Neg mg/dL (Negative) 07/29/19 01:50 Urine Ketones Neg mg/dL (Negative) 07/29/19 01:50 Urine Blood Mod (Negative) 07/29/19 01:50 Urine Nitrite Pos (Negative) 07/29/19 01:50 Urine Bilirubin Neg (Negative) 07/29/19 01:50 Urine Urobilinogen 2.0 mg/dL (<2.0) 07/29/19 01:50 Ur Leukocyte Esterase Tr (Negative) 07/29/19 01:50 Urine WBC (Auto) 10.0 /HPF (0.0-6.0) H 07/29/19 01:50 Urine RBC (Auto) 41.0 /HPF (0.0-6.0) 07/29/19 01:50 U Epithel Cells (Auto) 1.0 /HPF (0-13.0) 07/29/19 01:50 Urine Bacteria (Auto) 2+ /HPF (Negative) 07/29/19 01:50 Urine Mucus Few /HPF 07/29/19 01:50 CSF Appearance Clear 07/30/19 12:00 CSF Color Colorless 07/30/19 12:00 CSF WBC 3 /mm3 (1-10) 07/30/19 12:00 CSF RBC 75 /mm3 (0-0) 07/30/19 12:00 CSF Seg Neutrophils 5.6 % (0-6) 07/30/19 12:00 CSF Lymphocytes % 88.9 % (40-80) 07/30/19 12:00 CSF Reactive Lymphs 0 % 07/30/19 12:00 CSF Monocytes % 5.6 % (15-45) 07/30/19 12:00 CSF Eosinophils % 0 % 07/30/19 12:00 CSF Basophils 0 % 07/30/19 12:00 CSF Pathologist Review C 07/30/19 12:00 CSF Glucose 64 mg/dL 07/30/19 12:00 CSF Total Protein 31 mg/dL 07/30/19 12:00 CSF VDRL Nonreactive (Nonreactive) 07/30/19 12:00 Vancomycin Trough 19.6 ug/mL (5.0-20.0) 08/01/19 07:50 Active Medications - Current Medications Current Medications: Generic Name Dose Route Start Last Admin Trade Name Freq PRN Reason Stop Dose Admin Acetaminophen 650 mg 07/29/19 05:29 Tylenol PO Q4H PRN Pain, Mild (1-3), fever 100.5> Acetaminophen/Hydrocodone Bitart 1 each 07/29/19 21:50 08/21/19 21:40 Shirley 5/325 PO 1 each Q4H PRN Administration Pain, Moderate (4-6) Albuterol 2.5 mg 08/10/19 02:48 08/11/19 17:54 Proventil IH 2.5 mg Q4HRT PRN Administration Shortness Of Breath Lipase/Protease/Amylase 1 each 08/14/19 10:[address] 10,500 Unit FEEDTUBE PRN PRN For Clogged Feeding Tube Aspirin 325 mg 07/29/19 10:00 08/22/19 10:13 Aspirin PO 325 mg QDAY LESLIE Administration Atorvastatin Calcium 80 mg 07/29/19 22:00 08/21/19 21:40 Lipitor PO 80 mg QHS LESLIE Administration Bisacodyl 10 mg 07/29/19 05:29 Dulcolax TN QDAY PRN Constipation Enoxaparin Sodium 40 mg 08/08/19 10:00 08/21/19 21:42 Lovenox SUB-Q 40 mg QDAY@2200 LESLIE Administration Furosemide 20 mg 08/16/19 12:00 08/22/19 10:15 Lasix IV 20 mg QDAY LESLIE Administration Hydralazine HCl 10 mg 08/01/19 05:00 08/17/19 00:01 Apresoline IV 10 mg Q4HR PRN Administration Hypertension Hydralazine HCl 25 mg 08/16/19 14:00 08/22/19 05:21 Apresoline PO 25 mg Q8HR LESLIE Administration Hydroxyurea 500 mg 08/03/19 15:00 08/22/19 13:13 Hydrea PO 500 mg TuThSa@1000 LESLIE Administration Ampicillin Sodium 2 gm in 100 mls @ 100 mls/hr 08/05/19 10:00 08/22/19 10:20 Ampicillin/Ns 2 Gm/100 Ml IV 09/10/19 23:59 100 mls/hr Q4H LESLIE Administration Ceftriaxone Sodium 2 gm in 100 mls @ 200 mls/hr 08/15/19 15:00 08/22/19 02:30 Rocephin/Ns 2 Gm/100 Ml IV 09/10/19 23:59 200 mls/hr Q12H LESLIE Administration Protocol Lisinopril 30 mg 08/14/19 10:00 08/22/19 10:14 Zestril PO 30 mg QDAY LESLIE Administration Lorazepam 1 mg 07/29/19 06:42 08/14/19 06:27 Ativan IV 1 mg Q4H PRN Administration Seizures Magnesium Hydroxide 30 ml 07/29/19 05:29 Milk Of Magnesia PO Q4H PRN Constipation Metoprolol Tartrate 50 mg 07/29/19 10:00 08/22/19 10:15 Lopressor PO 50 mg BID LESLIE Administration Ondansetron HCl 4 mg 07/29/19 05:29 08/10/19 10:49 Zofran IV 4 mg Q6H PRN Administration Nausea And Vomiting Simple Syrup 15 ml 08/14/19 10:45 Simple Syrup FEEDTUBE PRN PRN Hypoglycemia Simple Syrup 30 ml 08/14/19 10:45 Simple Syrup FEEDTUBE PRN PRN Hypoglycemia Sodium Bicarbonate 325 mg 08/14/19 10:45 Sodium Bicarbonate FEEDTUBE PRN PRN For Clogged Feeding Tube Sodium Chloride 10 ml 07/29/19 05:29 08/20/19 11:45 Sodium Chloride Flush Syringe 10 Ml IV 10 ml PRN PRN Administration LINE FLUSH Nutrition/Malnutrition Assess - Dietary Evaluation Nutrition/Malnutrition Findings: Nutrition Notes Start: 07/29/19 14:00 Freq: Status: Active Protocol: Document 08/21/19 09:42 PS (Rec: 08/21/19 11:41 PS [id number]) Co-Sign 08/21/19 09:42 LM Nutrition Notes Initial or Follow up Reassessment Current Diagnosis COPD,Sepsis,Hypertension, Hyperlipidemia Other Pertinent Diagnosis Hx CVA X 2, Nonverbal,UTI,Pneu , Acute encephalopathy, Suspicion of seizure Current Diet Pureed Cardiac Diet, Overnight TF Labs/Tests Reviewed Pertinent Medications Lasix Height 5 ft 9 in Weight 79.4 kg [place] Body Weight (kg) 72.72 BMI 25.8 Weight change and time frame Wt loss noted. Pt on lasix. Subjective/Other Information Pt. recieved overnight TF of Jevity 1.2 at 75 ml/hr. Pt. was at end of bed being fed by brother during visit. Pt. states he would like to advance to mechanical soft diet due to not liking taste of pureed. Pt. was trying to eat all of his food. Percent of energy/protein needs met: 95%/100% Burn Absent Trauma Absent Minimum of two criteria N #1 Nutrition Diagnosis Inadequate oral intake As Evidenced by Signs and Symptoms Pt. eating 50% of food from hospital and more from home Diagnosis Progress(for reassessment Improved documentation) Is patient on ventilator? No Is Patient Ambulatory and/or Out of Bed Yes REE-(Gove-St. Jeor-ambulatory/OOB) [ 2118.194 [id number]] Kcal/Kg value to use for calculation 26 Approximate Energy Requirements Using 2063 kcal/Kg Calculation Used for Recommendations Kcal/kg Additional Notes PRO: 79 - 95g (1-1.2 g/kg/day) Fluid: 1ml/kcal Nutrition Intervention Change Diet Order: Advance to Mechanical Soft Cardiac Diet Nutrition Support: Initate Jevity 1.2 at 75 ml/h from 7 p to 7 a with 120 ml water flushes q 4 h Kcal 1,080 Protein (gm) 50 Fluid (mL) 726 Goal #1 Meet at least 75% of energy/ PRO needs via PO and cyclic TF . Anticipated Discharge Needs: Cardiac Diet Follow-Up By: 08/26/19 Additional Comments FU for PO intakes of advanced diet and TF tolerance
[2019-08-22] MEDS: ENOXAPARIN SUB-Q SCH (22:30)
[2019-08-23] MEDS: AMPICILLIN/NS 2 GM/100 ML 2 GM/100 ML BAG IV SCH ×6 (01:57→21:59)
[2019-08-23] MEDS: ROCEPHIN/NS 2 GM/100 ML 2 GM/100 ML BAG IV SCH ×2 (03:31→15:35)
[2019-08-23] MEDS: APRESOLINE PO SCH ×3 (05:48→21:58)
--- NOTE | 2019-08-23 08:04 | Progress Note ---
Assessment and Plan Assessment and plan: Acute pulmonary edema. Continue diuresis with IV Lasix, afterload reduction with hydralazine and echocardiogram negative for diastolic flow reversal and aorta. Aortic insufficiency not severe per cardiology. Sepsis secondary to Acute mitral valve endocarditis with Enterococcus: TTE showed mitral valve vegetation. Appreciate Cardiology recs, no surgical intervention. -Picc line placed. discontinued Vancomycin. 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 -LP done, doubt meningitis, isolation discontinued - reports questionable orthopnea. Check chest x-ray. Acute encephalopathy secondary to Seizure precipitated by sepsis -Continue to monitor -Neurology consulted and input noted. Possible seizure rather than CVA also as evidenced by CT head, with no acute cva noted. Hypertension -Continue to monitor BP -cont. 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 Psychiatry nurse practitioner note reviewed: for outpatient follow-up DVT PPX -SCD's -start sq lovenox, d/w Heme/Onc Disposition. Discharge once IV abx arranged History Interval history: Patient was seen and evaluated this morning No acute events overnight Hospitalist Physical - Physical exam Narrative exam: Not in cardiopulmonary distress. The patient appeared well nourished and normally developed. Vital signs as documented. Head exam is unremarkable. No scleral icterus . Neck is without jugular venous distension, thyromegaly, or carotid bruits. Lungs are clear to auscultation. Cardiac exam reveals regular rate and Rhythm. First and second heart sounds normal. No murmurs, rubs or gallops. Abdominal exam reveals normal bowel sounds, no masses, no organomegaly and no aortic enlargement. Extremities are nonedematous and both femoral and pedal pulses are normal. TOWEL SEWER: Alert and oriented. Right facial palsy. - Constitutional Vitals: Temp Pulse Resp BP Pulse Ox 98.0 F 85 19 162/72 96 10/11/19 07:22 08/23/19 07:22 08/23/19 07:22 08/23/19 07:22 08/23/19 07:22 General appearance: Present: no acute distress Results - Labs CBC & Chem 7: 08/19/19 08:08 08/19/19 08:08 Labs: Laboratory Last Values WBC 6.2 K/mm3 (4.5-11.0) 08/19/19 08:08 RBC 2.88 M/mm3 (3.65-5.03) L 08/19/19 08:08 Hgb 10.2 gm/dl (11.8-15.2) L 08/19/19 08:08 Hct 31.0 % (35.5-45.6) L 08/19/19 08:08 MCV 108 fl (84-94) H 08/19/19 08:08 MCH 35 pg (28-32) H 08/19/19 08:08 MCHC 33 % (32-34) 08/19/19 08:08 RDW 18.4 % (13.2-15.2) H 08/19/19 08:08 Plt Count 315 K/mm3 (140-440) 08/19/19 08:08 Lymph % (Auto) 20.9 % (13.4-35.0) 08/19/19 08:08 [place] % (Auto) 9.0 % (0.0-7.3) H 08/19/19 08:08 Eos % (Auto) 7.8 % (0.0-4.3) H 08/19/19 08:08 Baso % (Auto) 1.0 % (0.0-1.8) 08/19/19 08:08 Lymph # 1.3 K/mm3 (1.2-5.4) 08/19/19 08:08 [place] # 0.6 K/mm3 (0.0-0.8) 08/19/19 08:08 Eos # 0.5 K/mm3 (0.0-0.4) H 08/19/19 08:08 Baso # 0.1 K/mm3 (0.0-0.1) 08/19/19 08:08 Add Manual Diff Complete 07/29/19 00:42 Total Counted 100 07/29/19 00:42 Seg Neutrophils % 61.3 % (40.0-70.0) 08/19/19 08:08 Seg Neuts % (Manual) 82.0 % (40.0-70.0) H 07/29/19 00:42 Band Neutrophils % 0 % 07/29/19 00:42 Lymphocytes % (Manual) 16.0 % (13.4-35.0) 07/29/19 00:42 Reactive Lymphs % (Man) 0 % 07/29/19 00:42 Monocytes % (Manual) 1.0 % (0.0-7.3) 07/29/19 00:42 Eosinophils % (Manual) 0 % (0.0-4.3) 07/29/19 00:42 Basophils % (Manual) 1.0 % (0.0-1.8) 07/29/19 00:42 Metamyelocytes % 0 % 07/29/19 00:42 Myelocytes % 0 % 07/29/19 00:42 Promyelocytes % 0 % 07/29/19 00:42 Blast Cells % 0 % 07/29/19 00:42 Nucleated RBC % Not Reportable 07/29/19 00:42 Seg Neutrophils # 3.8 K/mm3 (1.8-7.7) 08/19/19 08:08 Seg Neutrophils # Man 1.6 K/mm3 (1.8-7.7) L 07/29/19 00:42 Band Neutrophils # 0.0 K/mm3 07/29/19 00:42 Lymphocytes # (Manual) 0.3 K/mm3 (1.2-5.4) L 07/29/19 00:42 Abs React Lymphs (Man) 0.0 K/mm3 07/29/19 00:42 Monocytes # (Manual) 0.0 K/mm3 (0.0-0.8) 07/29/19 00:42 Eosinophils # (Manual) 0.0 K/mm3 (0.0-0.4) 07/29/19 00:42 Basophils # (Manual) 0.0 K/mm3 (0.0-0.1) 07/29/19 00:42 Metamyelocytes # 0.0 K/mm3 07/29/19 00:42 Myelocytes # 0.0 K/mm3 07/29/19 00:42 Promyelocytes # 0.0 K/mm3 07/29/19 00:42 Blast Cells # 0.0 K/mm3 07/29/19 00:42 WBC Morphology Not Reportable 07/29/19 00:42 Hypersegmented Neuts Not Reportable 07/29/19 00:42 Hyposegmented Neuts Not Reportable 07/29/19 00:42 Hypogranular Neuts Not Reportable 07/29/19 00:42 Smudge Cells Not Reportable 07/29/19 00:42 Toxic Granulation Not Reportable 07/29/19 00:42 Toxic Vacuolation Not Reportable 07/29/19 00:42 Dohle Bodies Not Reportable 07/29/19 00:42 Pelger-Huet Anomaly Not Reportable 07/29/19 00:42 Jorge A Rods Not Reportable 07/29/19 00:42 Platelet Estimate Not Reportable 07/29/19 00:42 Clumped Platelets Not Reportable 07/29/19 00:42 Plt Clumps, EDTA Not Reportable 07/29/19 00:42 Large Platelets Not Reportable 07/29/19 00:42 Giant Platelets Not Reportable 07/29/19 00:42 Platelet Satelliting Not Reportable 07/29/19 00:42 Plt Morphology Comment Not Reportable 07/29/19 00:42 RBC Morphology Not Reportable 07/29/19 00:42 Dimorphic RBCs Not Reportable 07/29/19 00:42 Polychromasia Not Reportable 07/29/19 00:42 Hypochromasia Not Reportable 07/29/19 00:42 Poikilocytosis Not Reportable 07/29/19 00:42 Anisocytosis 2+ 07/29/19 00:42 Microcytosis Not Reportable 07/29/19 00:42 Macrocytosis Not Reportable 07/29/19 00:42 Spherocytes Not Reportable 07/29/19 00:42 Pappenheimer Bodies Not Reportable 07/29/19 00:42 Sickle Cells Not Reportable 07/29/19 00:42 Target Cells Not Reportable 07/29/19 00:42 Tear Drop Cells Not Reportable 07/29/19 00:42 Ovalocytes Not Reportable 07/29/19 00:42 Helmet Cells Not Reportable 07/29/19 00:42 [place] Bodies Not Reportable 07/29/19 00:42 [place] Rings Not Reportable 07/29/19 00:42 Golden Cells Not Reportable 07/29/19 00:42 Bite Cells Not Reportable 07/29/19 00:42 Crenated Cell Not Reportable 07/29/19 00:42 Elliptocytes Not Reportable 07/29/19 00:42 Acanthocytes (Spur) Not Reportable 07/29/19 00:42 Rouleaux Not Reportable 07/29/19 00:42 Hemoglobin C Crystals Not Reportable 07/29/19 00:42 Schistocytes Not Reportable 07/29/19 00:42 Malaria parasites Not Reportable 07/29/19 00:42 Marco Bodies Not Reportable 07/29/19 00:42 Hem Pathologist Commnt No 07/29/19 00:42 PT 13.8 Sec. (12.2-14.9) 07/29/19 00:42 INR 1.09 (0.87-1.13) 07/29/19 00:42 APTT 26.5 Sec. (24.2-36.6) 07/29/19 00:42 Thrombin Time 17.2 Sec. (15.1-19.6) 07/29/19 00:42 D-Dimer 1354.97 ng/mlDDU (0-234) H 07/29/19 00:42 Sodium 137 mmol/L (137-145) 08/19/19 08:08 Potassium 4.1 mmol/L (3.6-5.0) 08/19/19 08:08 Chloride 101.0 mmol/L (98-107) 08/19/19 08:08 Carbon Dioxide 25 mmol/L (22-30) 08/19/19 08:08 Anion Gap 15 mmol/L 08/19/19 08:08 BUN 17 mg/dL (9-20) 08/19/19 08:08 Creatinine 0.8 mg/dL (0.8-1.5) 08/19/19 08:08 Estimated GFR > 60 ml/min 08/19/19 08:08 BUN/Creatinine Ratio 21 % 08/19/19 08:08 Glucose 115 mg/dL (75-100) H 08/19/19 08:08 POC Glucose 83 (70-105) 08/07/19 07:40 Lactic Acid 1.80 mmol/L (0.7-2.0) 07/29/19 12:58 Calcium 8.6 mg/dL (8.4-10.2) 08/19/19 08:08 Iron 82 ug/dL (49-181) 08/01/19 06:54 TIBC 224 mcg/dL (250-450) L 08/01/19 06:54 Ferritin 1110.0 ng/mL (13.0-400.0) H 08/01/19 06:54 Total Bilirubin 0.30 mg/dL (0.1-1.2) 08/13/19 04:39 AST 16 units/L (5-40) 08/13/19 04:39 ALT 11 units/L (7-56) 08/13/19 04:39 Alkaline Phosphatase 70 units/L (35-129) 08/13/19 04:39 Total Creatine Kinase 184 units/L (55-170) H 07/29/19 12:58 CK-MB (CK-2) 2.8 ng/mL (0.0-4.0) 07/29/19 12:58 CK-MB (CK-2) Rel Index 1.5 (0-4) 07/29/19 12:58 Troponin T 0.114 ng/mL (0.00-0.029) H* D 07/29/19 10:44 NT-Pro-B Natriuret Pep 1767 pg/mL (0-900) H 07/29/19 02:03 Total Protein 8.4 g/dL (6.3-8.2) H 08/13/19 04:39 Albumin 3.6 g/dL (3.9-5) L 08/13/19 04:39 Albumin/Globulin Ratio 0.8 % 08/13/19 04:39 Triglycerides TNR 07/29/19 00:42 Cholesterol TNR 07/29/19 00:42 LDL Cholesterol Direct TNR 07/29/19 00:42 HDL Cholesterol TNR 07/29/19 00:42 Cholesterol/HDL Ratio TNR 07/29/19 00:42 Vitamin B12 1858 pg/mL (211-911) H 08/01/19 06:54 Folate 15.28 ng/mL (7.3-26.0) 08/01/19 06:54 Urine Color Yellow (Yellow) 07/29/19 01:50 Urine Turbidity Slightly-cloudy (Clear) 07/29/19 01:50 Urine pH 5.0 (5.0-7.0) 07/29/19 01:50 Ur Specific [place] 1.017 (1.003-1.030) 07/29/19 01:50 Urine Protein 100 mg/dl mg/dL (Negative) 07/29/19 01:50 Urine Glucose (UA) Neg mg/dL (Negative) 07/29/19 01:50 Urine Ketones Neg mg/dL (Negative) 07/29/19 01:50 Urine Blood Mod (Negative) 07/29/19 01:50 Urine Nitrite Pos (Negative) 07/29/19 01:50 Urine Bilirubin Neg (Negative) 07/29/19 01:50 Urine Urobilinogen 2.0 mg/dL (<2.0) 07/29/19 01:50 Ur Leukocyte Esterase Tr (Negative) 07/29/19 01:50 Urine WBC (Auto) 10.0 /HPF (0.0-6.0) H 07/29/19 01:50 Urine RBC (Auto) 41.0 /HPF (0.0-6.0) 07/29/19 01:50 U Epithel Cells (Auto) 1.0 /HPF (0-13.0) 07/29/19 01:50 Urine Bacteria (Auto) 2+ /HPF (Negative) 07/29/19 01:50 Urine Mucus Few /HPF 07/29/19 01:50 CSF Appearance Clear 07/30/19 12:00 CSF Color Colorless 07/30/19 12:00 CSF WBC 3 /mm3 (1-10) 07/30/19 12:00 CSF RBC 75 /mm3 (0-0) 07/30/19 12:00 CSF Seg Neutrophils 5.6 % (0-6) 07/30/19 12:00 CSF Lymphocytes % 88.9 % (40-80) 07/30/19 12:00 CSF Reactive Lymphs 0 % 07/30/19 12:00 CSF Monocytes % 5.6 % (15-45) 07/30/19 12:00 CSF Eosinophils % 0 % 07/30/19 12:00 CSF Basophils 0 % 07/30/19 12:00 CSF Pathologist Review C 07/30/19 12:00 CSF Glucose 64 mg/dL 07/30/19 12:00 CSF Total Protein 31 mg/dL 07/30/19 12:00 CSF VDRL Nonreactive (Nonreactive) 07/30/19 12:00 Vancomycin Trough 19.6 ug/mL (5.0-20.0) 08/01/19 07:50 Active Medications - Current Medications Current Medications: Generic Name Dose Route Start Last Admin Trade Name Freq PRN Reason Stop Dose Admin Acetaminophen 650 mg 07/29/19 05:29 Tylenol PO Q4H PRN Pain, Mild (1-3), fever 100.5> Acetaminophen/Hydrocodone Bitart 1 each 07/29/19 21:50 08/21/19 21:40 [place] 5/325 PO 1 each Q4H PRN Administration Pain, Moderate (4-6) Albuterol 2.5 mg 08/10/19 02:48 08/11/19 17:54 Proventil IH 2.5 mg Q4HRT PRN Administration Shortness Of Breath Lipase/Protease/Amylase 1 each 08/14/19 10:[address] 10,500 Unit FEEDTUBE PRN PRN For Clogged Feeding Tube Aspirin 325 mg 07/29/19 10:00 08/22/19 10:13 Aspirin PO 325 mg QDAY LESLIE Administration Atorvastatin Calcium 80 mg 07/29/19 22:00 08/22/19 22:31 Lipitor PO 80 mg QHS LESLIE Administration Bisacodyl 10 mg 07/29/19 05:29 Dulcolax NE QDAY PRN Constipation Enoxaparin Sodium 40 mg 08/08/19 10:00 08/22/19 22:30 Lovenox SUB-Q 40 mg QDAY@2200 LESLIE Administration Furosemide 20 mg 08/16/19 12:00 08/22/19 10:15 Lasix IV 20 mg QDAY LESLIE Administration Hydralazine HCl 10 mg 08/01/19 05:00 08/17/19 00:01 Apresoline IV 10 mg Q4HR PRN Administration Hypertension Hydralazine HCl 25 mg 08/16/19 14:00 08/23/19 05:48 Apresoline PO 25 mg Q8HR LESLIE Administration Hydroxyurea 500 mg 08/03/19 15:00 08/22/19 13:13 Hydrea PO 500 mg TuThSa@1000 LESLIE Administration Ampicillin Sodium 2 gm in 100 mls @ 100 mls/hr 08/05/19 10:00 08/23/19 05:48 Ampicillin/Ns 2 Gm/100 Ml IV 09/10/19 23:59 100 mls/hr Q4H LESLIE Administration Ceftriaxone Sodium 2 gm in 100 mls @ 200 mls/hr 08/15/19 15:00 08/23/19 03:31 Rocephin/Ns 2 Gm/100 Ml IV 09/10/19 23:59 200 mls/hr Q12H LESLIE Administration Protocol Lisinopril 30 mg 08/14/19 10:00 08/22/19 10:14 Zestril PO 30 mg QDAY LESLIE Administration Lorazepam 1 mg 07/29/19 06:42 08/14/19 06:27 Ativan IV 1 mg Q4H PRN Administration Seizures Magnesium Hydroxide 30 ml 07/29/19 05:29 Milk Of Magnesia PO Q4H PRN Constipation Metoprolol Tartrate 50 mg 07/29/19 10:00 08/22/19 22:31 Lopressor PO 50 mg BID LESLIE Administration Ondansetron HCl 4 mg 07/29/19 05:29 08/10/19 10:49 Zofran IV 4 mg Q6H PRN Administration Nausea And Vomiting Simple Syrup 15 ml 08/14/19 10:45 Simple Syrup FEEDTUBE PRN PRN Hypoglycemia Simple Syrup 30 ml 08/14/19 10:45 Simple Syrup FEEDTUBE PRN PRN Hypoglycemia Sodium Bicarbonate 325 mg 08/14/19 10:45 Sodium Bicarbonate FEEDTUBE PRN PRN For Clogged Feeding Tube Sodium Chloride 10 ml 07/29/19 05:29 08/20/19 11:45 Sodium Chloride Flush Syringe 10 Ml IV 10 ml PRN PRN Administration LINE FLUSH Nutrition/Malnutrition Assess - Dietary Evaluation Nutrition/Malnutrition Findings: Nutrition Notes Start: 07/29/19 14:00 Freq: Status: Active Protocol: Document 08/21/19 09:42 PS (Rec: 08/21/19 11:41 PS [id number]) Co-Sign 08/21/19 09:42 LM Nutrition Notes Initial or Follow up Reassessment Current Diagnosis COPD,Sepsis,Hypertension, Hyperlipidemia Other Pertinent Diagnosis Hx CVA X 2, Nonverbal,UTI,Pneu , Acute encephalopathy, Suspicion of seizure Current Diet Pureed Cardiac Diet, Overnight TF Labs/Tests Reviewed Pertinent Medications Lasix Height 5 ft 9 in Weight 79.4 kg [place] Body Weight (kg) 72.72 BMI 25.8 Weight change and time frame Wt loss noted. Pt on lasix. Subjective/Other Information Pt. recieved overnight TF of Jevity 1.2 at 75 ml/hr. Pt. was at end of bed being fed by brother during visit. Pt. states he would like to advance to mechanical soft diet due to not liking taste of pureed. Pt. was trying to eat all of his food. Percent of energy/protein needs met: 95%/100% Burn Absent Trauma Absent Minimum of two criteria N #1 Nutrition Diagnosis Inadequate oral intake As Evidenced by Signs and Symptoms Pt. eating 50% of food from hospital and more from home Diagnosis Progress(for reassessment Improved documentation) Is patient on ventilator? No Is Patient Ambulatory and/or Out of Bed Yes REE-([place]-St. Jeor-ambulatory/OOB) [ 2118.194 [id number]] Kcal/Kg value to use for calculation 26 Approximate Energy Requirements Using 2063 kcal/Kg Calculation Used for Recommendations Kcal/kg Additional Notes PRO: 79 - 95g (1-1.2 g/kg/day) Fluid: 1ml/kcal Nutrition Intervention Change Diet Order: Advance to Mechanical Soft Cardiac Diet Nutrition Support: Initate Jevity 1.2 at 75 ml/h from 7 p to 7 a with 120 ml water flushes q 4 h Kcal 1,080 Protein (gm) 50 Fluid (mL) 726 Goal #1 Meet at least 75% of energy/ PRO needs via PO and cyclic TF . Anticipated Discharge Needs: Cardiac Diet Follow-Up By: 08/26/19 Additional Comments FU for PO intakes of advanced diet and TF tolerance
--- NOTE | 2019-08-23 08:53 | Hem/Onc Progress Note ---
Assessment and Plan 1. h/o Unresponsiveness, history of fever. ID team following. 2. JAK2 mutation. The patient was on hydroxyurea, white cell count was low, Hydrea had been held. 3. History of chronic obstructive pulmonary disease. 4. History of hypertension. 5. History of hyperlipidemia. 6. History of cerebrovascular accident. 7. History of left renal cell cancer removal. 8. V/Q scan is negative for pulmonary embolism. 9. Lumbar puncture done 10. I will follow the patient during inpatient stay. pt awake - but speech slurred follows command of moving legs and opening mouth as per old notes - pt had been with Dr Frankel He was admitted to [facility] in feb 2019 - with CVA ID - Infective endocardititis - on ABX 08/23 pt was on hydrea for CMPD - this was held as WBC was low restarted hydrea at a lower frequency WBC fluctuating as he was walking away from the hospital - he is being watched placement pending pt will continue TIW hydrea for now d/w dr De Leon - Patient Problems (1) Myeloproliferative disease Current Visit: No Status: Acute Subjective Date of service: 08/23/19 Principal diagnosis: CMPD Interval history: no bleeding - no fever Objective - Exam Narrative Exam: Pain - n/a General appearance - awake - but slurred speech Performance status complete dependence Eyes - no icterus ENT - no bleeding LNs cervical not palpable Neck - no LN Respiratory Normal Breath sounds - CTA anteriorly CVS S1 S2 + Extremities no calf tenderness General GI Soft - PEG + Rectal deferred male - deferred Skin warm Musculoskeletal moving extremitites Neurologically awake - slurred speech - Constitutional Vitals: Last Vital Signs Temp 98.0 F 08/23/19 07:22 Pulse 85 08/23/19 07:22 Resp 19 08/23/19 07:22 BP 162/72 08/23/19 07:22 Pulse Ox 96 08/23/19 07:22 Medications & Allergies - Medications Allergies/Adverse Reactions: Allergies No Known Allergies Allergy (Unverified 07/17/14 19:25) Home Medications: Home Medications Medication Instructions Recorded Confirmed Last Taken Type Metoprolol Tartrate 50 mg PO BID 03/05/19 07/29/19 07/28/19 History QUEtiapine 50 mg PO DAILY 03/05/19 07/29/19 Unknown History Aspirin 325 mg PO QDAY tablet 03/11/19 07/29/19 07/29/19 17:39 Rx AtorvaSTATin [Lipitor] 80 mg PO QHS tablet 03/11/19 07/29/19 Unknown Rx Lisinopril [Zestril TAB] 20 mg PO QDAY tablet 03/11/19 07/29/19 Unknown Rx traZODone [Desyrel] 50 mg PO QDAY PRN tablet 03/11/19 07/29/19 Unknown Rx Hydroxyurea [Hydrea] 500 mg PO TuThSa@1000 #30 capsule 08/05/19 Unknown Rx Active Medications: Generic Name Dose Route Start Last Admin Trade Name Freq PRN Reason Stop Dose Admin Acetaminophen 650 mg 07/29/19 05:29 Tylenol PO Q4H PRN Pain, Mild (1-3), fever 100.5> Acetaminophen/Hydrocodone Bitart 1 each 07/29/19 21:50 08/21/19 21:40 [place] 5/325 PO 1 each Q4H PRN Administration Pain, Moderate (4-6) Albuterol 2.5 mg 08/10/19 02:48 08/11/19 17:54 Proventil IH 2.5 mg Q4HRT PRN Administration Shortness Of Breath Lipase/Protease/Amylase 1 each 08/14/19 10:[address] 10,500 Unit FEEDTUBE PRN PRN For Clogged Feeding Tube Aspirin 325 mg 07/29/19 10:00 08/22/19 10:13 Aspirin PO 325 mg QDAY LESLIE Administration Atorvastatin Calcium 80 mg 07/29/19 22:00 08/22/19 22:31 Lipitor PO 80 mg QHS LESLIE Administration Bisacodyl 10 mg 07/29/19 05:29 Dulcolax AR QDAY PRN Constipation Enoxaparin Sodium 40 mg 08/08/19 10:00 08/22/19 22:30 Lovenox SUB-Q 40 mg QDAY@2200 LESLIE Administration Furosemide 20 mg 08/16/19 12:00 08/22/19 10:15 Lasix IV 20 mg QDAY LESLIE Administration Hydralazine HCl 10 mg 08/01/19 05:00 08/17/19 00:01 Apresoline IV 10 mg Q4HR PRN Administration Hypertension Hydralazine HCl 25 mg 08/16/19 14:00 08/23/19 05:48 Apresoline PO 25 mg Q8HR LESLIE Administration Hydroxyurea 500 mg 08/24/19 10:00 Hydrea PO TUTHSA LESLIE Ampicillin Sodium 2 gm in 100 mls @ 100 mls/hr 08/05/19 10:00 08/23/19 05:48 Ampicillin/Ns 2 Gm/100 Ml IV 09/10/19 23:59 100 mls/hr Q4H LESLIE Administration Ceftriaxone Sodium 2 gm in 100 mls @ 200 mls/hr 08/15/19 15:00 08/23/19 03:31 Rocephin/Ns 2 Gm/100 Ml IV 09/10/19 23:59 200 mls/hr Q12H LESLIE Administration Protocol Lisinopril 30 mg 08/14/19 10:00 08/22/19 10:14 Zestril PO 30 mg QDAY LESLIE Administration Lorazepam 1 mg 07/29/19 06:42 08/14/19 06:27 Ativan IV 1 mg Q4H PRN Administration Seizures Magnesium Hydroxide 30 ml 07/29/19 05:29 Milk Of Magnesia PO Q4H PRN Constipation Metoprolol Tartrate 50 mg 07/29/19 10:00 08/22/19 22:31 Lopressor PO 50 mg BID LESLIE Administration Ondansetron HCl 4 mg 07/29/19 05:29 08/10/19 10:49 Zofran IV 4 mg Q6H PRN Administration Nausea And Vomiting Simple Syrup 15 ml 08/14/19 10:45 Simple Syrup FEEDTUBE PRN PRN Hypoglycemia Simple Syrup 30 ml 08/14/19 10:45 Simple Syrup FEEDTUBE PRN PRN Hypoglycemia Sodium Bicarbonate 325 mg 08/14/19 10:45 Sodium Bicarbonate FEEDTUBE PRN PRN For Clogged Feeding Tube Sodium Chloride 10 ml 07/29/19 05:29 08/20/19 11:45 Sodium Chloride Flush Syringe 10 Ml IV 10 ml PRN PRN Administration LINE FLUSH
[2019-08-23] MEDS: ZESTRIL PO SCH (09:36)
[2019-08-23] MEDS: ASPIRIN PO SCH (09:36)
[2019-08-23] MEDS: METOPROLOL PO SCH ×2 (09:37→21:58)
[2019-08-23] MEDS: LASIX IV SCH (09:37)
[2019-08-23] MEDS: ENOXAPARIN SUB-Q SCH (21:59)
[2019-08-24] MEDS: AMPICILLIN/NS 2 GM/100 ML 2 GM/100 ML BAG IV SCH ×6 (02:10→22:31)
[2019-08-24] MEDS: ROCEPHIN/NS 2 GM/100 ML 2 GM/100 ML BAG IV SCH ×2 (03:08→15:18)
[2019-08-24] MEDS: APRESOLINE PO SCH ×3 (05:25→22:32)
--- NOTE | 2019-08-24 10:02 | Progress Note ---
Assessment and Plan Assessment and plan: Acute pulmonary edema. Continue diuresis with IV Lasix, afterload reduction with hydralazine and echocardiogram negative for diastolic flow reversal and aorta. Aortic insufficiency not severe per cardiology. Sepsis secondary to Acute mitral valve endocarditis with Enterococcus: TTE showed mitral valve vegetation. Appreciate Cardiology recs, no surgical intervention. -Picc line placed. discontinued Vancomycin. 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 -LP done, doubt meningitis, isolation discontinued - reports questionable orthopnea. Check chest x-ray. Acute encephalopathy secondary to Seizure precipitated by sepsis -Continue to monitor -Neurology consulted and input noted. Possible seizure rather than CVA also as evidenced by CT head, with no acute cva noted. Hypertension -Continue to monitor BP -cont. present meds History of CVA -Hemorrhagic CVA 11/2018 -Ischemic CVA 02/2019 -Right-sided residual deficits with dysarthria -PT/OT eval recommending home with home health -Continue aspirin and statin therapy Elevated d-dimer -D-dimer elevated at 1354.97 -V/Q scan negative for PE Thrombocytosis JAK2 positive Heme/onc following hydroxyurea changed to 3x/wk Dysphagia - tolerating diet Psychiatry nurse practitioner note reviewed: for outpatient follow-up DVT PPX -SCD's -start sq lovenox, d/w Heme/Onc Disposition. Discharge once IV abx arranged History Interval history: Patient was seen and evaluated this morning No acute events overnight Hospitalist Physical - Physical exam Narrative exam: Not in cardiopulmonary distress. The patient appeared well nourished and normally developed. Vital signs as documented. Head exam is unremarkable. No scleral icterus . Neck is without jugular venous distension, thyromegaly, or carotid bruits. Lungs are clear to auscultation. Cardiac exam reveals regular rate and Rhythm. First and second heart sounds normal. No murmurs, rubs or gallops. Abdominal exam reveals normal bowel sounds, no masses, no organomegaly and no aortic enlargement. Extremities are nonedematous and both femoral and pedal pulses are normal. 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 Right facial palsy. - Constitutional Vitals: Temp Pulse Resp BP Pulse Ox 98.4 F 82 18 133/71 95 08/24/19 05:07 08/24/19 08:49 08/24/19 08:49 08/24/19 05:07 08/24/19 05:07 General appearance: Present: no acute distress Results - Labs CBC & Chem 7: 08/19/19 08:08 08/19/19 08:08 Labs: Laboratory Last Values WBC 6.2 K/mm3 (4.5-11.0) 08/19/19 08:08 RBC 2.88 M/mm3 (3.65-5.03) L 08/19/19 08:08 Hgb 10.2 gm/dl (11.8-15.2) L 08/19/19 08:08 Hct 31.0 % (35.5-45.6) L 08/19/19 08:08 MCV 108 fl (84-94) H 08/19/19 08:08 MCH 35 pg (28-32) H 08/19/19 08:08 MCHC 33 % (32-34) 08/19/19 08:08 RDW 18.4 % (13.2-15.2) H 08/19/19 08:08 Plt Count 315 K/mm3 (140-440) 08/19/19 08:08 Lymph % (Auto) 20.9 % (13.4-35.0) 08/19/19 08:08 [place] % (Auto) 9.0 % (0.0-7.3) H 08/19/19 08:08 Eos % (Auto) 7.8 % (0.0-4.3) H 08/19/19 08:08 Baso % (Auto) 1.0 % (0.0-1.8) 08/19/19 08:08 Lymph # 1.3 K/mm3 (1.2-5.4) 08/19/19 08:08 [place] # 0.6 K/mm3 (0.0-0.8) 08/19/19 08:08 Eos # 0.5 K/mm3 (0.0-0.4) H 08/19/19 08:08 Baso # 0.1 K/mm3 (0.0-0.1) 08/19/19 08:08 Add Manual Diff Complete 07/29/19 00:42 Total Counted 100 07/29/19 00:42 Seg Neutrophils % 61.3 % (40.0-70.0) 08/19/19 08:08 Seg Neuts % (Manual) 82.0 % (40.0-70.0) H 07/29/19 00:42 Band Neutrophils % 0 % 07/29/19 00:42 Lymphocytes % (Manual) 16.0 % (13.4-35.0) 07/29/19 00:42 Reactive Lymphs % (Man) 0 % 07/29/19 00:42 Monocytes % (Manual) 1.0 % (0.0-7.3) 07/29/19 00:42 Eosinophils % (Manual) 0 % (0.0-4.3) 07/29/19 00:42 Basophils % (Manual) 1.0 % (0.0-1.8) 07/29/19 00:42 Metamyelocytes % 0 % 07/29/19 00:42 Myelocytes % 0 % 07/29/19 00:42 Promyelocytes % 0 % 07/29/19 00:42 Blast Cells % 0 % 07/29/19 00:42 Nucleated RBC % Not Reportable 07/29/19 00:42 Seg Neutrophils # 3.8 K/mm3 (1.8-7.7) 08/19/19 08:08 Seg Neutrophils # Man 1.6 K/mm3 (1.8-7.7) L 07/29/19 00:42 Band Neutrophils # 0.0 K/mm3 07/29/19 00:42 Lymphocytes # (Manual) 0.3 K/mm3 (1.2-5.4) L 07/29/19 00:42 Abs React Lymphs (Man) 0.0 K/mm3 07/29/19 00:42 Monocytes # (Manual) 0.0 K/mm3 (0.0-0.8) 07/29/19 00:42 Eosinophils # (Manual) 0.0 K/mm3 (0.0-0.4) 07/29/19 00:42 Basophils # (Manual) 0.0 K/mm3 (0.0-0.1) 07/29/19 00:42 Metamyelocytes # 0.0 K/mm3 07/29/19 00:42 Myelocytes # 0.0 K/mm3 07/29/19 00:42 Promyelocytes # 0.0 K/mm3 07/29/19 00:42 Blast Cells # 0.0 K/mm3 07/29/19 00:42 WBC Morphology Not Reportable 07/29/19 00:42 Hypersegmented Neuts Not Reportable 07/29/19 00:42 Hyposegmented Neuts Not Reportable 07/29/19 00:42 Hypogranular Neuts Not Reportable 07/29/19 00:42 Smudge Cells Not Reportable 07/29/19 00:42 Toxic Granulation Not Reportable 07/29/19 00:42 Toxic Vacuolation Not Reportable 07/29/19 00:42 Dohle Bodies Not Reportable 07/29/19 00:42 Pelger-Huet Anomaly Not Reportable 07/29/19 00:42 Jorge A Rods Not Reportable 07/29/19 00:42 Platelet Estimate Not Reportable 07/29/19 00:42 Clumped Platelets Not Reportable 07/29/19 00:42 Plt Clumps, EDTA Not Reportable 07/29/19 00:42 Large Platelets Not Reportable 07/29/19 00:42 Giant Platelets Not Reportable 07/29/19 00:42 Platelet Satelliting Not Reportable 07/29/19 00:42 Plt Morphology Comment Not Reportable 07/29/19 00:42 RBC Morphology Not Reportable 07/29/19 00:42 Dimorphic RBCs Not Reportable 07/29/19 00:42 Polychromasia Not Reportable 07/29/19 00:42 Hypochromasia Not Reportable 07/29/19 00:42 Poikilocytosis Not Reportable 07/29/19 00:42 Anisocytosis 2+ 07/29/19 00:42 Microcytosis Not Reportable 07/29/19 00:42 Macrocytosis Not Reportable 07/29/19 00:42 Spherocytes Not Reportable 07/29/19 00:42 Pappenheimer Bodies Not Reportable 07/29/19 00:42 Sickle Cells Not Reportable 07/29/19 00:42 Target Cells Not Reportable 07/29/19 00:42 Tear Drop Cells Not Reportable 07/29/19 00:42 Ovalocytes Not Reportable 07/29/19 00:42 Helmet Cells Not Reportable 07/29/19 00:42 Antunez-Crest Bodies Not Reportable 07/29/19 00:42 [place] Rings Not Reportable 07/29/19 00:42 [place] Cells Not Reportable 07/29/19 00:42 Bite Cells Not Reportable 07/29/19 00:42 Crenated Cell Not Reportable 07/29/19 00:42 Elliptocytes Not Reportable 07/29/19 00:42 Acanthocytes (Spur) Not Reportable 07/29/19 00:42 Rouleaux Not Reportable 07/29/19 00:42 Hemoglobin C Crystals Not Reportable 07/29/19 00:42 Schistocytes Not Reportable 07/29/19 00:42 Malaria parasites Not Reportable 07/29/19 00:42 Marco Bodies Not Reportable 07/29/19 00:42 Hem Pathologist Commnt No 07/29/19 00:42 PT 13.8 Sec. (12.2-14.9) 07/29/19 00:42 INR 1.09 (0.87-1.13) 07/29/19 00:42 APTT 26.5 Sec. (24.2-36.6) 07/29/19 00:42 Thrombin Time 17.2 Sec. (15.1-19.6) 07/29/19 00:42 D-Dimer 1354.97 ng/mlDDU (0-234) H 07/29/19 00:42 Sodium 137 mmol/L (137-145) 08/19/19 08:08 Potassium 4.1 mmol/L (3.6-5.0) 08/19/19 08:08 Chloride 101.0 mmol/L (98-107) 08/19/19 08:08 Carbon Dioxide 25 mmol/L (22-30) 08/19/19 08:08 Anion Gap 15 mmol/L 08/19/19 08:08 BUN 17 mg/dL (9-20) 08/19/19 08:08 Creatinine 0.8 mg/dL (0.8-1.5) 08/19/19 08:08 Estimated GFR > 60 ml/min 08/19/19 08:08 BUN/Creatinine Ratio 21 % 08/19/19 08:08 Glucose 115 mg/dL (75-100) H 08/19/19 08:08 POC Glucose 83 (70-105) 08/07/19 07:40 Lactic Acid 1.80 mmol/L (0.7-2.0) 07/29/19 12:58 Calcium 8.6 mg/dL (8.4-10.2) 08/19/19 08:08 Iron 82 ug/dL (49-181) 08/01/19 06:54 TIBC 224 mcg/dL (250-450) L 08/01/19 06:54 Ferritin 1110.0 ng/mL (13.0-400.0) H 08/01/19 06:54 Total Bilirubin 0.30 mg/dL (0.1-1.2) 08/13/19 04:39 AST 16 units/L (5-40) 08/13/19 04:39 ALT 11 units/L (7-56) 08/13/19 04:39 Alkaline Phosphatase 70 units/L (35-129) 08/13/19 04:39 Total Creatine Kinase 184 units/L (55-170) H 07/29/19 12:58 CK-MB (CK-2) 2.8 ng/mL (0.0-4.0) 07/29/19 12:58 CK-MB (CK-2) Rel Index 1.5 (0-4) 07/29/19 12:58 Troponin T 0.114 ng/mL (0.00-0.029) H* D 07/29/19 10:44 NT-Pro-B Natriuret Pep 1767 pg/mL (0-900) H 07/29/19 02:03 Total Protein 8.4 g/dL (6.3-8.2) H 08/13/19 04:39 Albumin 3.6 g/dL (3.9-5) L 08/13/19 04:39 Albumin/Globulin Ratio 0.8 % 08/13/19 04:39 Triglycerides TNR 07/29/19 00:42 Cholesterol TNR 07/29/19 00:42 LDL Cholesterol Direct TNR 07/29/19 00:42 HDL Cholesterol TNR 07/29/19 00:42 Cholesterol/HDL Ratio TNR 07/29/19 00:42 Vitamin B12 1858 pg/mL (211-911) H 08/01/19 06:54 Folate 15.28 ng/mL (7.3-26.0) 08/01/19 06:54 Urine Color Yellow (Yellow) 07/29/19 01:50 Urine Turbidity Slightly-cloudy (Clear) 07/29/19 01:50 Urine pH 5.0 (5.0-7.0) 07/29/19 01:50 Ur Specific [place] 1.017 (1.003-1.030) 07/29/19 01:50 Urine Protein 100 mg/dl mg/dL (Negative) 07/29/19 01:50 Urine Glucose (UA) Neg mg/dL (Negative) 07/29/19 01:50 Urine Ketones Neg mg/dL (Negative) 07/29/19 01:50 Urine Blood Mod (Negative) 07/29/19 01:50 Urine Nitrite Pos (Negative) 07/29/19 01:50 Urine Bilirubin Neg (Negative) 07/29/19 01:50 Urine Urobilinogen 2.0 mg/dL (<2.0) 07/29/19 01:50 Ur Leukocyte Esterase Tr (Negative) 07/29/19 01:50 Urine WBC (Auto) 10.0 /HPF (0.0-6.0) H 07/29/19 01:50 Urine RBC (Auto) 41.0 /HPF (0.0-6.0) 07/29/19 01:50 U Epithel Cells (Auto) 1.0 /HPF (0-13.0) 07/29/19 01:50 Urine Bacteria (Auto) 2+ /HPF (Negative) 07/29/19 01:50 Urine Mucus Few /HPF 07/29/19 01:50 CSF Appearance Clear 07/30/19 12:00 CSF Color Colorless 07/30/19 12:00 CSF WBC 3 /mm3 (1-10) 07/30/19 12:00 CSF RBC 75 /mm3 (0-0) 07/30/19 12:00 CSF Seg Neutrophils 5.6 % (0-6) 07/30/19 12:00 CSF Lymphocytes % 88.9 % (40-80) 07/30/19 12:00 CSF Reactive Lymphs 0 % 07/30/19 12:00 CSF Monocytes % 5.6 % (15-45) 07/30/19 12:00 CSF Eosinophils % 0 % 07/30/19 12:00 CSF Basophils 0 % 07/30/19 12:00 CSF Pathologist Review C 07/30/19 12:00 CSF Glucose 64 mg/dL 07/30/19 12:00 CSF Total Protein 31 mg/dL 07/30/19 12:00 CSF VDRL Nonreactive (Nonreactive) 07/30/19 12:00 Vancomycin Trough 19.6 ug/mL (5.0-20.0) 08/01/19 07:50 Active Medications - Current Medications Current Medications: Generic Name Dose Route Start Last Admin Trade Name Freq PRN Reason Stop Dose Admin Acetaminophen 650 mg 07/29/19 05:29 Tylenol PO Q4H PRN Pain, Mild (1-3), fever 100.5> Acetaminophen/Hydrocodone Bitart 1 each 07/29/19 21:50 08/21/19 21:40 [place] 5/325 PO 1 each Q4H PRN Administration Pain, Moderate (4-6) Albuterol 2.5 mg 08/10/19 02:48 08/11/19 17:54 Proventil IH 2.5 mg Q4HRT PRN Administration Shortness Of Breath Lipase/Protease/Amylase 1 each 08/14/19 10:[address] 10,500 Unit FEEDTUBE PRN PRN For Clogged Feeding Tube Aspirin 325 mg 07/29/19 10:00 08/23/19 09:36 Aspirin PO 325 mg QDAY LESLIE Administration Atorvastatin Calcium 80 mg 07/29/19 22:00 08/23/19 21:58 Lipitor PO 80 mg QHS LESLIE Administration Bisacodyl 10 mg 07/29/19 05:29 Dulcolax AL QDAY PRN Constipation Enoxaparin Sodium 40 mg 08/08/19 10:00 08/23/19 21:59 Lovenox SUB-Q 40 mg QDAY@2200 LESLIE Administration Furosemide 20 mg 08/16/19 12:00 08/23/19 09:37 Lasix IV 20 mg QDAY LESLIE Administration Hydralazine HCl 10 mg 08/01/19 05:00 08/17/19 00:01 Apresoline IV 10 mg Q4HR PRN Administration Hypertension Hydralazine HCl 25 mg 08/16/19 14:00 08/24/19 05:25 Apresoline PO 25 mg Q8HR LESLIE Administration Hydroxyurea 500 mg 08/24/19 10:00 Hydrea PO TUTHSA LESLIE Ampicillin Sodium 2 gm in 100 mls @ 100 mls/hr 08/05/19 10:00 08/24/19 05:25 Ampicillin/Ns 2 Gm/100 Ml IV 09/10/19 23:59 100 mls/hr Q4H LESLIE Administration Ceftriaxone Sodium 2 gm in 100 mls @ 200 mls/hr 08/15/19 15:00 08/24/19 03:08 Rocephin/Ns 2 Gm/100 Ml IV 09/10/19 23:59 200 mls/hr Q12H LESLIE Administration Protocol Lisinopril 30 mg 08/14/19 10:00 08/23/19 09:36 Zestril PO 30 mg QDAY LESLIE Administration Lorazepam 1 mg 07/29/19 06:42 08/14/19 06:27 Ativan IV 1 mg Q4H PRN Administration Seizures Magnesium Hydroxide 30 ml 07/29/19 05:29 Milk Of Magnesia PO Q4H PRN Constipation Metoprolol Tartrate 50 mg 07/29/19 10:00 08/23/19 21:58 Lopressor PO 50 mg BID LESLIE Administration Ondansetron HCl 4 mg 07/29/19 05:29 08/10/19 10:49 Zofran IV 4 mg Q6H PRN Administration Nausea And Vomiting Simple Syrup 15 ml 08/14/19 10:45 Simple Syrup FEEDTUBE PRN PRN Hypoglycemia Simple Syrup 30 ml 08/14/19 10:45 Simple Syrup FEEDTUBE PRN PRN Hypoglycemia Sodium Bicarbonate 325 mg 08/14/19 10:45 Sodium Bicarbonate FEEDTUBE PRN PRN For Clogged Feeding Tube Sodium Chloride 10 ml 07/29/19 05:29 08/20/19 11:45 Sodium Chloride Flush Syringe 10 Ml IV 10 ml PRN PRN Administration LINE FLUSH Nutrition/Malnutrition Assess - Dietary Evaluation Nutrition/Malnutrition Findings: Nutrition Notes Start: 07/29/19 14:00 Freq: Status: Active Protocol: Document 08/21/19 09:42 PS (Rec: 08/21/19 11:41 PS [id number]) Co-Sign 08/21/19 09:42 LM Nutrition Notes Initial or Follow up Reassessment Current Diagnosis COPD,Sepsis,Hypertension, Hyperlipidemia Other Pertinent Diagnosis Hx CVA X 2, Nonverbal,UTI,Pneu , Acute encephalopathy, Suspicion of seizure Current Diet Pureed Cardiac Diet, Overnight TF Labs/Tests Reviewed Pertinent Medications Lasix Height 5 ft 9 in Weight 79.4 kg [place] Body Weight (kg) 72.72 BMI 25.8 Weight change and time frame Wt loss noted. Pt on lasix. Subjective/Other Information Pt. recieved overnight TF of Jevity 1.2 at 75 ml/hr. Pt. was at end of bed being fed by brother during visit. Pt. states he would like to advance to mechanical soft diet due to not liking taste of pureed. Pt. was trying to eat all of his food. Percent of energy/protein needs met: 95%/100% Burn Absent Trauma Absent Minimum of two criteria N #1 Nutrition Diagnosis Inadequate oral intake As Evidenced by Signs and Symptoms Pt. eating 50% of food from hospital and more from home Diagnosis Progress(for reassessment Improved documentation) Is patient on ventilator? No Is Patient Ambulatory and/or Out of Bed Yes REE-([facility]-ambulatory/OOB) [ 2118.194 [id number]] Kcal/Kg value to use for calculation 26 Approximate Energy Requirements Using 2063 kcal/Kg Calculation Used for Recommendations Kcal/kg Additional Notes PRO: 79 - 95g (1-1.2 g/kg/day) Fluid: 1ml/kcal Nutrition Intervention Change Diet Order: Advance to Mechanical Soft Cardiac Diet Nutrition Support: Initate Jevity 1.2 at 75 ml/h from 7 p to 7 a with 120 ml water flushes q 4 h Kcal 1,080 Protein (gm) 50 Fluid (mL) 726 Goal #1 Meet at least 75% of energy/ PRO needs via PO and cyclic TF . Anticipated Discharge Needs: Cardiac Diet Follow-Up By: 08/26/19 Additional Comments FU for PO intakes of advanced diet and TF tolerance
[2019-08-24] MEDS: ZESTRIL PO SCH (10:23)
[2019-08-24] MEDS: HYDROXYUREA PO SCH (10:23)
[2019-08-24] MEDS: ASPIRIN PO SCH (10:24)
[2019-08-24] MEDS: METOPROLOL PO SCH ×2 (10:24→22:32)
[2019-08-24] MEDS: LASIX IV SCH (10:24)
[2019-08-24] MEDS: ENOXAPARIN SUB-Q SCH (22:32)
[2019-08-25] MEDS: AMPICILLIN/NS 2 GM/100 ML 2 GM/100 ML BAG IV SCH ×6 (02:15→22:12)
[2019-08-25] MEDS: ROCEPHIN/NS 2 GM/100 ML 2 GM/100 ML BAG IV SCH ×2 (02:15→14:58)
[2019-08-25] MEDS: APRESOLINE PO SCH ×3 (05:47→22:13)
[2019-08-25] MEDS: LASIX IV SCH (10:40)
[2019-08-25] MEDS: METOPROLOL PO SCH ×2 (11:00→22:13)
[2019-08-25] MEDS: ZESTRIL PO SCH (11:00)
[2019-08-25] MEDS: ASPIRIN PO SCH (11:07)
--- NOTE | 2019-08-25 14:50 | Progress Note ---
Assessment and Plan /Acute pulmonary edema. Continue diuresis with IV Lasix, afterload reduction with hydralazine and echocardiogram negative for diastolic flow reversal and aorta. Aortic insufficiency not severe per cardiology. /Sepsis secondary to Acute mitral valve endocarditis with Enterococcus: TTE showed mitral valve vegetation. Appreciate Cardiology recs, no surgical intervention. -Picc line placed. discontinued Vancomycin. 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 -LP done, doubt meningitis, isolation discontinued /Acute encephalopathy with delirium secondary to Seizure precipitated by sepsis -Continue to monitor -Neurology consulted and input noted. Possible seizure rather than CVA also as evidenced by CT head, with no acute cva noted. - Psych evaluated and recommended outpatient follow-up /Accelerated Hypertension, POA -Continue to monitor BP -cont. present meds, stable /History of CVA -Hemorrhagic CVA 11/2018 -Ischemic CVA 02/2019 -Right-sided residual deficits with dysarthria -PT/OT eval recommending home with home health -Continue aspirin and statin therapy /Elevated d-dimer -D-dimer elevated at 1354.97 -V/Q scan negative for PE /Thrombocytosis JAK2 positive Heme/onc following hydroxyurea changed to 3x/wk /Dysphagia - tolerating diet DVT PPX -SCD's -start sq lovenox, d/w Heme/Onc Disposition. Discharge once IV abx arranged brief History Patient is a 53-year-old -Irish man who is nonverbal with history of COPD, hypertension, dyslipidemia, JAK2 positive with thrombocytosis and CVA 2 (hemorrhagic 11/2018 and ischemic 02/2019) with right-sided residual deficits who presents to [facility] ED with Altered mental status and difficulty breathing. He is unable to provide history; According to patient's family patient was found to be less responsive with difficulty breathing. EMS was called. Upon EMS' arrival to home he was found to be hypertensive with SBP in 200's, febrile, and tachycardic with audible wheezing. He was admitted for further evaluation and management. His blood culture grew Enterococcus faecalis with mitral valve vegetation. Now being treated for endocarditis with IV antibiotics, ID following. 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 Otherwise, the CTA of the head appears unremarkable * CTA neck with and without contrast: There is mild calcified plaque involving the proximal left ICA. However, there no CTA evidence of significant stenosis involving cervical carotid or vertebral arteries by NASCET criteria. * CXR: There is mild increase in interstitial markings bilaterally likely representing mild edema. * 07/30/19 MRI brain without contrast Impression: No focal mass, acute hemorrhage, hydrocephalus or acute ischemia * TTE: 1. Mitral valve vegetation. 2. Moderate MR. 3. Normal LV function EF 55- 60%. 4. Mild-moderate AR. Cultures: 07/29/2019 Blood culture: Enterococcus faecalis Urine culture: mixed growth 07/30/2019 Blood culture: no growth at 48 hours Hospitalist Physical GENERAL: well-developed and well-nourished -Irish male lying on bed appeared to be in no discomfort. HEENT: Normocephalic. Atraumatic. No conjunctival congestion or icterus. Patient has moist mucous membranes. NECK: Supple. Trachea midline. CHEST/LUNGS: Positive wheezes auscultated bilaterally, breathing nonlabored. No crackles or rhonchi. HEART/CARDIOVASCULAR: Regular in rate and rhythm. S1 and S2 positive. ABDOMEN: Abdomen is soft, nontender. Patient has normal bowel sounds. SKIN: There is no rash. Warm and dry. NEURO: Dysarthric. Follows command. MUSCULOSKELETAL: No joint effusion or tenderness. EXTRIMITY: No edema, no cyanosis or clubbing. PSYCH: Cooperative. Subjective Date of service: 08/25/19 Principal diagnosis: CMPD Interval history: Patient seen and examined Acute event overnight Denies any chest pain or shortness of breath Placement pending on insurance and financial support Objective - Constitutional Vitals: Vital Signs - 12hr 08/25/19 08/25/19 08/25/19 05:00 07:28 10:00 Temperature 98.1 F 97.9 F Pulse Rate 68 84 Pulse Rate [ 76 Apical] Pulse Rate [ 76 From Monitor] Respiratory 14 18 16 Rate Blood Pressure 150/79 147/81 O2 Sat by Pulse 95 98 96 Oximetry 08/25/19 08/25/19 08/25/19 11:00 11:09 13:29 Temperature Pulse Rate 64 73 63 Pulse Rate [ Apical] Pulse Rate [ From Monitor] Respiratory Rate Blood Pressure 142/58 142/58 127/62 O2 Sat by Pulse 99 Oximetry - Labs CBC & Chem 7: 08/26/19 10:00 08/26/19 10:00
[2019-08-25] MEDS: ENOXAPARIN SUB-Q SCH (22:14)
[2019-08-25] MEDS: HYDROXYUREA PO SCH (22:14)
[2019-08-26] MEDS: ROCEPHIN/NS 2 GM/100 ML 2 GM/100 ML BAG IV SCH ×2 (01:31→14:47)
[2019-08-26] MEDS: AMPICILLIN/NS 2 GM/100 ML 2 GM/100 ML BAG IV SCH ×6 (01:32→21:42)
[2019-08-26] MEDS: APRESOLINE PO SCH ×3 (05:17→21:24)
[2019-08-26] MEDS: NORCO 5/325 PO PRN (05:19)
--- NOTE | 2019-08-26 06:24 | Hem/Onc Progress Note ---
Assessment and Plan 1. h/o Unresponsiveness, history of fever. ID team following. 2. JAK2 mutation. The patient was on hydroxyurea, white cell count was low, Hydrea had been held. 3. History of chronic obstructive pulmonary disease. 4. History of hypertension. 5. History of hyperlipidemia. 6. History of cerebrovascular accident. 7. History of left renal cell cancer removal. 8. V/Q scan is negative for pulmonary embolism. 9. Lumbar puncture done 10. I will follow the patient during inpatient stay. pt awake - but speech slurred follows command of moving legs and opening mouth as per old notes - pt had been with Dr Frankel He was [facility] - with CVA ID - Infective endocardititis - on ABX 08/26 pt was on hydrea for CMPD - this was held as WBC was low restarted hydrea at a lower frequency - TIW WBC fluctuating as he was walking away from the hospital - he is being watched placement pending pt will continue TIW hydrea for now will do labs - Patient Problems (1) Myeloproliferative disease Current Visit: No Status: Acute Subjective Date of service: 08/26/19 Principal diagnosis: CMPD Interval history: pt sitting on bed - no pain Objective - Exam Narrative Exam: Pain - n/a General appearance - awake - but slurred speech Performance status complete dependence Eyes - no icterus ENT - no bleeding LNs cervical not palpable Neck - no LN Respiratory Normal Breath sounds - CTA anteriorly CVS S1 S2 + Extremities no calf tenderness General GI Soft - PEG + Rectal deferred male - deferred Skin warm Musculoskeletal moving extremitites Neurologically awake - slurred speech - Constitutional Vitals: Last Vital Signs Temp 97.9 F 08/26/19 03:57 Pulse 66 08/26/19 03:57 Resp 18 08/26/19 03:57 BP 155/72 08/26/19 03:57 Pulse Ox 99 08/26/19 03:57 Medications & Allergies - Medications Allergies/Adverse Reactions: Allergies No Known Allergies Allergy (Unverified 07/17/14 19:25) Home Medications: Home Medications Medication Instructions Recorded Confirmed Last Taken Type Metoprolol Tartrate 50 mg PO BID 03/05/19 07/29/19 07/28/19 History QUEtiapine 50 mg PO DAILY 03/05/19 07/29/19 Unknown History Aspirin 325 mg PO QDAY tablet 03/11/19 07/29/19 07/29/19 17:39 Rx AtorvaSTATin [Lipitor] 80 mg PO QHS tablet 03/11/19 07/29/19 Unknown Rx Lisinopril [Zestril TAB] 20 mg PO QDAY tablet 03/11/19 07/29/19 Unknown Rx traZODone [Desyrel] 50 mg PO QDAY PRN tablet 03/11/19 07/29/19 Unknown Rx Hydroxyurea [Hydrea] 500 mg PO TuThSa@1000 #30 capsule 08/05/19 Unknown Rx Active Medications: Generic Name Dose Route Start Last Admin Trade Name Freq PRN Reason Stop Dose Admin Acetaminophen 650 mg 07/29/19 05:29 Tylenol PO Q4H PRN Pain, Mild (1-3), fever 100.5> Acetaminophen/Hydrocodone Bitart 1 each 07/29/19 21:50 08/26/19 05:19 [place] 5/325 PO 1 each Q4H PRN Administration Pain, Moderate (4-6) Albuterol 2.5 mg 08/10/19 02:48 08/11/19 17:54 Proventil IH 2.5 mg Q4HRT PRN Administration Shortness Of Breath Lipase/Protease/Amylase 1 each 08/14/19 10:[address] 10,500 Unit FEEDTUBE PRN PRN For Clogged Feeding Tube Aspirin 325 mg 07/29/19 10:00 08/25/19 11:07 Aspirin PO 325 mg QDAY LESLIE Administration Atorvastatin Calcium 80 mg 07/29/19 22:00 08/25/19 22:13 Lipitor PO 80 mg QHS LESLIE Administration Bisacodyl 10 mg 07/29/19 05:29 Dulcolax IN QDAY PRN Constipation Enoxaparin Sodium 40 mg 08/08/19 10:00 08/25/19 22:14 Lovenox SUB-Q 40 mg QDAY@2200 LESLIE Administration Furosemide 20 mg 08/16/19 12:00 08/25/19 10:40 Lasix IV 20 mg QDAY LESLIE Administration Hydralazine HCl 10 mg 08/01/19 05:00 08/17/19 00:01 Apresoline IV 10 mg Q4HR PRN Administration Hypertension Hydralazine HCl 25 mg 08/16/19 14:00 08/26/19 05:17 Apresoline PO 25 mg Q8HR LESLIE Administration Hydroxyurea 500 mg 08/24/19 10:00 08/25/19 22:14 Hydrea PO Not Given TUTHSA LESLIE Ampicillin Sodium 2 gm in 100 mls @ 100 mls/hr 08/05/19 10:00 08/26/19 05:17 Ampicillin/Ns 2 Gm/100 Ml IV 09/10/19 23:59 100 mls/hr Q4H LESLIE Administration Ceftriaxone Sodium 2 gm in 100 mls @ 200 mls/hr 08/25/19 14:00 08/26/19 05:15 Rocephin/Ns 2 Gm/100 Ml IV 09/10/19 23:59 Infused Q12H LESLIE Infusion Lisinopril 30 mg 08/14/19 10:00 08/25/19 11:00 Zestril PO 30 mg QDAY LESLIE Administration Lorazepam 1 mg 07/29/19 06:42 08/14/19 06:27 Ativan IV 1 mg Q4H PRN Administration Seizures Magnesium Hydroxide 30 ml 07/29/19 05:29 Milk Of Magnesia PO Q4H PRN Constipation Metoprolol Tartrate 50 mg 07/29/19 10:00 08/25/19 22:13 Lopressor PO 50 mg BID LESLIE Administration Ondansetron HCl 4 mg 07/29/19 05:29 08/10/19 10:49 Zofran IV 4 mg Q6H PRN Administration Nausea And Vomiting Simple Syrup 15 ml 08/14/19 10:45 Simple Syrup FEEDTUBE PRN PRN Hypoglycemia Simple Syrup 30 ml 08/14/19 10:45 Simple Syrup FEEDTUBE PRN PRN Hypoglycemia Sodium Bicarbonate 325 mg 08/14/19 10:45 Sodium Bicarbonate FEEDTUBE PRN PRN For Clogged Feeding Tube Sodium Chloride 10 ml 07/29/19 05:29 08/20/19 11:45 Sodium Chloride Flush Syringe 10 Ml IV 10 ml PRN PRN Administration LINE FLUSH
[2019-08-26] MEDS: HYDROXYUREA PO SCH (09:32)
[2019-08-26] MEDS: METOPROLOL PO SCH ×2 (09:32→21:24)
[2019-08-26] MEDS: LASIX IV SCH (09:32)
[2019-08-26] MEDS: ASPIRIN PO SCH (09:33)
[2019-08-26] MEDS: ZESTRIL PO SCH (09:33)
[2019-08-26 10:59] LABS: Basophils # (Auto) 0.1 K/mm3 (0.0-0.1); Basophils % (Auto) 1.3 % (0.0-1.8); Eosinophils # (Auto) 0.6 K/mm3 (0.0-0.4); Eosinophils % (Auto) 8.9 % (0.0-4.3); Hematocrit 33.7 % (35.5-45.6); Hemoglobin 11.2 gm/dl (11.8-15.2); Lymphocytes # (Auto) 1.8 K/mm3 (1.2-5.4); Lymphocytes % (Auto) 28.6 % (13.4-35.0); Mean Corpuscular HGB Conc 33 % (32-34); Mean Corpuscular Volume 105 fl (84-94); Monocytes # (Auto) 0.4 K/mm3 (0.0-0.8); Monocytes % (Auto) 5.8 % (0.0-7.3); Platelet Count 391 K/mm3 (140-440); Red Blood Count 3.21 M/mm3 (3.65-5.03); Red Cell Distribution Width 18.1 % (13.2-15.2)
[2019-08-26 11:09] LABS: Alanine Aminotransferase 19 units/L (7-56); Albumin 3.8 g/dL (3.9-5); BUN/Creatinine Ratio 21; Blood Urea Nitrogen 19 mg/dL (9-20); Calcium 9.2 mg/dL (8.4-10.2); Hemolysis Index 2
--- NOTE | 2019-08-26 14:58 | Progress Note ---
Assessment and Plan /Acute pulmonary edema. Continue diuresis with IV Lasix, afterload reduction with hydralazine and echocardiogram negative for diastolic flow reversal and aorta. Aortic insufficiency not severe per cardiology. /Sepsis secondary to Acute mitral valve endocarditis with Enterococcus: TTE showed mitral valve vegetation. Appreciate Cardiology recs, no surgical intervention. -Picc line placed. discontinued Vancomycin. 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 -LP done, doubt meningitis, isolation discontinued /Acute encephalopathy with delirium secondary to Seizure precipitated by sepsis -Continue to monitor -Neurology consulted and input noted. Possible seizure rather than CVA also as evidenced by CT head, with no acute cva noted. - Psych evaluated and recommended outpatient follow-up /Accelerated Hypertension, POA -Continue to monitor BP -cont. present meds, stable /History of CVA -Hemorrhagic CVA 11/2018 -Ischemic CVA 02/2019 -Right-sided residual deficits with dysarthria -PT/OT eval recommending home with home health -Continue aspirin and statin therapy /Elevated d-dimer -D-dimer elevated at 1354.97 -V/Q scan negative for PE /Thrombocytosis JAK2 positive Heme/onc following hydroxyurea changed to 3x/wk /Dysphagia - tolerating diet DVT PPX -SCD's -start sq lovenox, d/w Heme/Onc Disposition. Discharge once IV abx arranged brief History Patient is a 53-year-old -[place] man who is nonverbal with history of COPD, hypertension, dyslipidemia, JAK2 positive with thrombocytosis and CVA 2 (hemorrhagic 11/2018 and ischemic 02/2019) with right-sided residual deficits who presents to [facility] ED with Altered mental status and difficulty breathing. He is unable to provide history; According to patient's family patient was found to be less responsive with difficulty breathing. EMS was called. Upon EMS' arrival to home he was found to be hypertensive with SBP in 200's, febrile, and tachycardic with audible wheezing. He was admitted for further evaluation and management. His blood culture grew Enterococcus faecalis with mitral valve vegetation. Now being treated for endocarditis with IV antibiotics, ID following. 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 Otherwise, the CTA of the head appears unremarkable * CTA neck with and without contrast: There is mild calcified plaque involving the proximal left ICA. However, there no CTA evidence of significant stenosis involving cervical carotid or vertebral arteries by NASCET criteria. * CXR: There is mild increase in interstitial markings bilaterally likely representing mild edema. * 07/30/19 MRI brain without contrast Impression: No focal mass, acute hemorrhage, hydrocephalus or acute ischemia * TTE: 1. Mitral valve vegetation. 2. Moderate MR. 3. Normal LV function EF 55- 60%. 4. Mild-moderate AR. Cultures: 07/29/2019 Blood culture: Enterococcus faecalis Urine culture: mixed growth 07/30/2019 Blood culture: no growth at 48 hours Hospitalist Physical GENERAL: well-developed and well-nourished -[place] male lying on bed appeared to be in no discomfort. HEENT: Normocephalic. Atraumatic. No conjunctival congestion or icterus. Patient has moist mucous membranes. NECK: Supple. Trachea midline. CHEST/LUNGS: Positive wheezes auscultated bilaterally, breathing nonlabored. No crackles or rhonchi. HEART/CARDIOVASCULAR: Regular in rate and rhythm. S1 and S2 positive. ABDOMEN: Abdomen is soft, nontender. Patient has normal bowel sounds. SKIN: There is no rash. Warm and dry. NEURO: Dysarthric. Follows command. MUSCULOSKELETAL: No joint effusion or tenderness. EXTRIMITY: No edema, no cyanosis or clubbing. PSYCH: Cooperative. Subjective Date of service: 08/26/19 Principal diagnosis: CMPD Interval history: Patient seen and examined Acute event overnight Denies any chest pain or shortness of breath Placement pending on insurance and financial support Objective - Constitutional Vitals: Vital Signs - 12hr 08/26/19 03:57 Temperature 97.9 F Pulse Rate 66 Respiratory 18 Rate Blood Pressure 155/72 O2 Sat by Pulse 99 Oximetry - Labs CBC & Chem 7: 08/26/19 10:00 08/26/19 10:00 Labs: Abnormal lab results 08/26/19 08/26/19 Range/Units 10:00 10:00 RBC 3.21 L (3.65-5.03) M/mm3 Hgb 11.2 L (11.8-15.2) gm/dl Hct 33.7 L (35.5-45.6) % MCV 105 H (84-94) fl MCH 35 H (28-32) pg RDW 18.1 H (13.2-15.2) % Eos % (Auto) 8.9 H (0.0-4.3) % Eos # 0.6 H (0.0-0.4) K/mm3 Glucose 110 H (75-100) mg/dL Total Protein 8.6 H (6.3-8.2) g/dL Albumin 3.8 L (3.9-5) g/dL
[2019-08-26] MEDS: ENOXAPARIN SUB-Q SCH (21:24)
[2019-08-27] MEDS: AMPICILLIN/NS 2 GM/100 ML 2 GM/100 ML BAG IV SCH ×5 (00:45→18:18)
[2019-08-27] MEDS: ROCEPHIN/NS 2 GM/100 ML 2 GM/100 ML BAG IV SCH ×2 (02:22→15:52)
[2019-08-27] MEDS: SODIUM CHLORIDE FLUSH SYRINGE 10 ML IV PRN (04:31)
[2019-08-27] MEDS: APRESOLINE PO SCH ×3 (06:05→22:05)
--- NOTE | 2019-08-27 07:19 | Hem/Onc Progress Note ---
Assessment and Plan 1. h/o Unresponsiveness, history of fever. ID team following. 2. JAK2 mutation. The patient was on hydroxyurea, white cell count was low, Hydrea had been held. 3. History of chronic obstructive pulmonary disease. 4. History of hypertension. 5. History of hyperlipidemia. 6. History of cerebrovascular accident. 7. History of left renal cell cancer removal. 8. V/Q scan is negative for pulmonary embolism. 9. Lumbar puncture done 10. I will follow the patient during inpatient stay. pt awake - but speech slurred follows command of moving legs and opening mouth as per old notes - pt had been with Dr Frankel He was admitted to [facility] in feb 2019 - with CVA ID - Infective endocardititis - on ABX 08/27 pt was on hydrea for CMPD - this was held as WBC was low restarted hydrea at a lower frequency - TIW WBC fluctuating as he was walking away from the hospital - he is being watched placement pending pt will continue TIW hydrea for now wbc stable - Patient Problems (1) Myeloproliferative disease Current Visit: No Status: Acute Subjective Date of service: 08/27/19 Principal diagnosis: CMPD Interval history: no bleeding Objective - Exam Narrative Exam: Pain - n/a General appearance - awake - but slurred speech Performance status complete dependence Eyes - no icterus ENT - no bleeding LNs cervical not palpable Neck - no LN Respiratory Normal Breath sounds - CTA anteriorly CVS S1 S2 + Extremities no calf tenderness General GI Soft - PEG + Rectal deferred male - deferred Skin warm Musculoskeletal moving extremitites Neurologically awake - slurred speech - Constitutional Vitals: Last Vital Signs Temp 97.5 F L 08/27/19 03:35 Pulse 79 08/27/19 06:05 Resp 14 08/27/19 03:35 BP 131/85 08/27/19 06:05 Pulse Ox 95 08/27/19 03:35 - Labs Lab Results: Laboratory Results - last 24 hr 08/26/19 08/26/19 10:00 10:00 WBC 6.2 RBC 3.21 L Hgb 11.2 L Hct 33.7 L MCV 105 H MCH 35 H MCHC 33 RDW 18.1 H Plt Count 391 Lymph % (Auto) 28.6 [place] % (Auto) 5.8 Eos % (Auto) 8.9 H Baso % (Auto) 1.3 Lymph # 1.8 [place] # 0.4 Eos # 0.6 H Baso # 0.1 Seg Neutrophils % 55.4 Seg Neutrophils # 3.5 Sodium 142 Potassium 3.6 Chloride 104.0 Carbon Dioxide 22 Anion Gap 20 BUN 19 Creatinine 0.9 Estimated GFR > 60 BUN/Creatinine Ratio 21 Glucose 110 H Calcium 9.2 Total Bilirubin 0.30 AST 18 ALT 19 Alkaline Phosphatase 74 Total Protein 8.6 H Albumin 3.8 L Albumin/Globulin Ratio 0.8 Medications & Allergies - Medications Allergies/Adverse Reactions: Allergies No Known Allergies Allergy (Unverified 07/17/14 19:25) Home Medications: Home Medications Medication Instructions Recorded Confirmed Last Taken Type Metoprolol Tartrate 50 mg PO BID 03/05/19 07/29/19 07/28/19 History QUEtiapine 50 mg PO DAILY 03/05/19 07/29/19 Unknown History Aspirin 325 mg PO QDAY tablet 03/11/19 07/29/19 07/29/19 17:39 Rx AtorvaSTATin [Lipitor] 80 mg PO QHS tablet 03/11/19 07/29/19 Unknown Rx Lisinopril [Zestril TAB] 20 mg PO QDAY tablet 03/11/19 07/29/19 Unknown Rx traZODone [Desyrel] 50 mg PO QDAY PRN tablet 03/11/19 07/29/19 Unknown Rx Hydroxyurea [Hydrea] 500 mg PO TuThSa@1000 #30 capsule 08/05/19 Unknown Rx Active Medications: Generic Name Dose Route Start Last Admin Trade Name Freq PRN Reason Stop Dose Admin Acetaminophen 650 mg 07/29/19 05:29 Tylenol PO Q4H PRN Pain, Mild (1-3), fever 100.5> Acetaminophen/Hydrocodone Bitart 1 each 07/29/19 21:50 08/26/19 05:19 [place] 5/325 PO 1 each Q4H PRN Administration Pain, Moderate (4-6) Albuterol 2.5 mg 08/10/19 02:48 08/11/19 17:54 Proventil IH 2.5 mg Q4HRT PRN Administration Shortness Of Breath Lipase/Protease/Amylase 1 each 08/14/19 10:[address] 10,500 Unit FEEDTUBE PRN PRN For Clogged Feeding Tube Aspirin 325 mg 07/29/19 10:00 10/14/19 09:33 Aspirin PO 325 mg QDAY LESLIE Administration Atorvastatin Calcium 80 mg 07/29/19 22:00 08/26/19 21:25 Lipitor PO 80 mg QHS LESLIE Administration Bisacodyl 10 mg 07/29/19 05:29 Dulcolax NE QDAY PRN Constipation Enoxaparin Sodium 40 mg 08/08/19 10:00 08/26/19 21:24 Lovenox SUB-Q 40 mg QDAY@2200 LESLIE Administration Furosemide 20 mg 08/16/19 12:00 08/26/19 09:32 Lasix IV 20 mg QDAY LESLIE Administration Hydralazine HCl 10 mg 08/01/19 05:00 08/17/19 00:01 Apresoline IV 10 mg Q4HR PRN Administration Hypertension Hydralazine HCl 25 mg 08/16/19 14:00 08/27/19 06:05 Apresoline PO 25 mg Q8HR LESLIE Administration Hydroxyurea 500 mg 08/24/19 10:00 08/26/19 09:32 Hydrea PO 500 mg TUTHSA LESLIE Administration Ceftriaxone Sodium 2 gm in 100 mls @ 200 mls/hr 08/25/19 14:00 08/27/19 02:22 Rocephin/Ns 2 Gm/100 Ml IV 09/10/19 23:59 200 mls/hr Q12H LESLIE Administration Ampicillin Sodium 2 gm in 100 mls @ 100 mls/hr 08/26/19 12:00 08/27/19 04:30 Ampicillin/Ns 2 Gm/100 Ml IV 09/10/19 23:59 100 mls/hr Q4H LESLIE Administration Lisinopril 30 mg 08/14/19 10:00 08/26/19 09:33 Zestril PO 30 mg QDAY LESLIE Administration Lorazepam 1 mg 07/29/19 06:42 08/14/19 06:27 Ativan IV 1 mg Q4H PRN Administration Seizures Magnesium Hydroxide 30 ml 07/29/19 05:29 Milk Of Magnesia PO Q4H PRN Constipation Metoprolol Tartrate 50 mg 07/29/19 10:00 08/26/19 21:24 Lopressor PO 50 mg BID LESLIE Administration Ondansetron HCl 4 mg 07/29/19 05:29 08/10/19 10:49 Zofran IV 4 mg Q6H PRN Administration Nausea And Vomiting Simple Syrup 15 ml 08/14/19 10:45 Simple Syrup FEEDTUBE PRN PRN Hypoglycemia Simple Syrup 30 ml 08/14/19 10:45 Simple Syrup FEEDTUBE PRN PRN Hypoglycemia Sodium Bicarbonate 325 mg 08/14/19 10:45 Sodium Bicarbonate FEEDTUBE PRN PRN For Clogged Feeding Tube Sodium Chloride 10 ml 07/29/19 05:29 08/27/19 04:31 Sodium Chloride Flush Syringe 10 Ml IV 10 ml PRN PRN Administration LINE FLUSH
[2019-08-27] MEDS: ASPIRIN PO SCH (10:23)
[2019-08-27] MEDS: METOPROLOL PO SCH ×2 (10:23→21:28)
[2019-08-27] MEDS: ZESTRIL PO SCH (10:23)
[2019-08-27] MEDS: HYDROXYUREA PO SCH (10:23)
[2019-08-27] MEDS: LASIX IV SCH (10:24)
--- NOTE | 2019-08-27 17:37 | Progress Note ---
Assessment and Plan /Acute pulmonary edema. Continue diuresis with IV Lasix, afterload reduction with hydralazine and echocardiogram negative for diastolic flow reversal and aorta. Aortic insufficiency not severe per cardiology. /Sepsis secondary to Acute mitral valve endocarditis with Enterococcus: TTE showed mitral valve vegetation. Appreciate Cardiology recs, no surgical intervention. -Picc line placed. discontinued Vancomycin. 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 -LP done, doubt meningitis, isolation discontinued /Acute encephalopathy with delirium secondary to Seizure precipitated by sepsis -Continue to monitor -Neurology consulted and input noted. Possible seizure rather than CVA also as evidenced by CT head, with no acute cva noted. - Psych evaluated and recommended outpatient follow-up /Accelerated Hypertension, POA -Continue to monitor BP -cont. present meds, stable /History of CVA -Hemorrhagic CVA 11/2018 -Ischemic CVA 02/2019 -Right-sided residual deficits with dysarthria -PT/OT eval recommending home with home health -Continue aspirin and statin therapy /Elevated d-dimer -D-dimer elevated at 1354.97 -V/Q scan negative for PE /Thrombocytosis JAK2 positive Heme/onc following hydroxyurea changed to 3x/wk /Dysphagia - tolerating diet DVT PPX -SCD's -start sq lovenox, d/w Heme/Onc Disposition. Discharge once IV abx arranged brief History Patient is a 53-year-old -French man who is nonverbal with history of COPD, hypertension, dyslipidemia, JAK2 positive with thrombocytosis and CVA 2 (hemorrhagic 11/2018 and ischemic 02/2019) with right-sided residual deficits who presents to [facility] ED with Altered mental status and difficulty breathing. He is unable to provide history; According to patient's family patient was found to be less responsive with difficulty breathing. EMS was called. Upon EMS' arrival to home he was found to be hypertensive with SBP in 200's, febrile, and tachycardic with audible wheezing. He was admitted for further evaluation and management. His blood culture grew Enterococcus faecalis with mitral valve vegetation. Now being treated for endocarditis with IV antibiotics, ID following. 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 Otherwise, the CTA of the head appears unremarkable * CTA neck with and without contrast: There is mild calcified plaque involving the proximal left ICA. However, there no CTA evidence of significant stenosis involving cervical carotid or vertebral arteries by NASCET criteria. * CXR: There is mild increase in interstitial markings bilaterally likely representing mild edema. * 07/30/19 MRI brain without contrast Impression: No focal mass, acute hemorrhage, hydrocephalus or acute ischemia * TTE: 1. Mitral valve vegetation. 2. Moderate MR. 3. Normal LV function EF 55- 60%. 4. Mild-moderate AR. Cultures: 07/29/2019 Blood culture: Enterococcus faecalis Urine culture: mixed growth 07/30/2019 Blood culture: no growth at 48 hours Hospitalist Physical GENERAL: well-developed and well-nourished -French male lying on bed appeared to be in no discomfort. HEENT: Normocephalic. Atraumatic. No conjunctival congestion or icterus. Patient has moist mucous membranes. NECK: Supple. Trachea midline. CHEST/LUNGS: Positive wheezes auscultated bilaterally, breathing nonlabored. No crackles or rhonchi. HEART/CARDIOVASCULAR: Regular in rate and rhythm. S1 and S2 positive. ABDOMEN: Abdomen is soft, nontender. Patient has normal bowel sounds. SKIN: There is no rash. Warm and dry. NEURO: Dysarthric. Follows command. MUSCULOSKELETAL: No joint effusion or tenderness. EXTRIMITY: No edema, no cyanosis or clubbing. PSYCH: Cooperative. Subjective Date of service: 08/27/19 Principal diagnosis: CMPD Interval history: Patient seen and examined Acute event overnight Denies any chest pain or shortness of breath Placement pending on insurance and financial support Objective - Constitutional Vitals: Vital Signs - 12hr 08/27/19 08/27/19 08/27/19 06:05 08:35 10:23 Temperature 98.3 F Pulse Rate 79 68 Respiratory 18 Rate Blood Pressure 131/85 141/78 131/85 O2 Sat by Pulse 98 Oximetry 08/27/19 14:07 Temperature Pulse Rate 65 Respiratory Rate Blood Pressure 112/50 O2 Sat by Pulse 98 Oximetry - Labs CBC & Chem 7: 08/26/19 10:00 08/26/19 10:00
[2019-08-27] MEDS: ENOXAPARIN SUB-Q SCH (21:28)
[2019-08-28] MEDS: AMPICILLIN/NS 2 GM/100 ML 2 GM/100 ML BAG IV SCH ×7 (00:28→20:06)
[2019-08-28] MEDS: ROCEPHIN/NS 2 GM/100 ML 2 GM/100 ML BAG IV SCH ×2 (01:36→15:10)
[2019-08-28] MEDS: APRESOLINE PO SCH ×3 (06:33→21:33)
--- NOTE | 2019-08-28 07:18 | Hem/Onc Progress Note ---
Assessment and Plan 1. h/o Unresponsiveness, history of fever. ID team following. 2. JAK2 mutation. The patient was on hydroxyurea, white cell count was low, Hydrea had been held. 3. History of chronic obstructive pulmonary disease. 4. History of hypertension. 5. History of hyperlipidemia. 6. History of cerebrovascular accident. 7. History of left renal cell cancer removal. 8. V/Q scan is negative for pulmonary embolism. 9. Lumbar puncture done 10. I will follow the patient during inpatient stay. pt awake - but speech slurred follows command of moving legs and opening mouth as per old notes - pt had been with Dr Frankel He was admitted to [facility] in feb 2019 - with CVA ID - Infective endocardititis - on ABX 08/28 pt was on hydrea for CMPD - this was held as WBC was low restarted hydrea at a lower frequency - TIW WBC fluctuating as he was walking away from the hospital - he is being watched placement pending pt will continue TIW hydrea for now wbc stable - Patient Problems (1) Myeloproliferative disease Current Visit: No Status: Acute Subjective Date of service: 08/28/19 Principal diagnosis: CMPD Interval history: no bleeding Objective - Exam Narrative Exam: Pain - n/a General appearance - awake - but slurred speech Performance status complete dependence Eyes - no icterus ENT - no bleeding LNs cervical not palpable Neck - no LN Respiratory Normal Breath sounds - CTA anteriorly CVS S1 S2 + Extremities no calf tenderness General GI Soft - PEG + Rectal deferred male - deferred Skin warm Musculoskeletal moving extremitites Neurologically awake - slurred speech - Constitutional Vitals: Last Vital Signs Temp 97.7 F 08/28/19 05:25 Pulse 66 08/28/19 06:33 Resp 18 08/28/19 05:25 BP 143/73 08/28/19 06:33 Pulse Ox 93 08/28/19 05:25 Medications & Allergies - Medications Allergies/Adverse Reactions: Allergies No Known Allergies Allergy (Unverified 07/17/14 19:25) Home Medications: Home Medications Medication Instructions Recorded Confirmed Last Taken Type Metoprolol Tartrate 50 mg PO BID 03/05/19 07/29/19 07/28/19 History QUEtiapine 50 mg PO DAILY 03/05/19 07/29/19 Unknown History Aspirin 325 mg PO QDAY tablet 03/11/19 07/29/1919 17:39 Rx AtorvaSTATin [Lipitor] 80 mg PO QHS tablet 03/11/19 07/29/19 Unknown Rx Lisinopril [Zestril TAB] 20 mg PO QDAY tablet 03/11/19 07/29/19 Unknown Rx traZODone [Desyrel] 50 mg PO QDAY PRN tablet 03/11/19 07/29/19 Unknown Rx Hydroxyurea [Hydrea] 500 mg PO TuThSa@1000 #30 capsule 08/05/19 Unknown Rx Active Medications: Generic Name Dose Route Start Last Admin Trade Name Freq PRN Reason Stop Dose Admin Acetaminophen 650 mg 07/29/19 05:29 Tylenol PO Q4H PRN Pain, Mild (1-3), fever 100.5> Acetaminophen/Hydrocodone Bitart 1 each 07/29/19 21:50 08/26/19 05:19 [place] 5/325 PO 1 each Q4H PRN Administration Pain, Moderate (4-6) Albuterol 2.5 mg 08/10/19 02:48 08/11/19 17:54 Proventil IH 2.5 mg Q4HRT PRN Administration Shortness Of Breath Lipase/Protease/Amylase 1 each 08/14/19 10:[address] 10,500 Unit FEEDTUBE PRN PRN For Clogged Feeding Tube Aspirin 325 mg 07/29/19 10:00 08/27/19 10:23 Aspirin PO 325 mg QDAY LESLIE Administration Atorvastatin Calcium 80 mg 07/29/19 22:00 08/27/19 21:28 Lipitor PO 80 mg QHS LESLIE Administration Bisacodyl 10 mg 07/29/19 05:29 Dulcolax OR QDAY PRN Constipation Enoxaparin Sodium 40 mg 08/08/19 10:00 08/27/19 21:28 Lovenox SUB-Q 40 mg QDAY@2200 LESLIE Administration Furosemide 20 mg 08/16/19 12:00 08/27/19 10:24 Lasix IV 20 mg QDAY LESLIE Administration Hydralazine HCl 10 mg 08/01/19 05:00 08/17/19 00:01 Apresoline IV 10 mg Q4HR PRN Administration Hypertension Hydralazine HCl 25 mg 08/16/19 14:00 08/28/19 06:33 Apresoline PO 25 mg Q8HR LESLIE Administration Hydroxyurea 500 mg 08/24/19 10:00 08/27/19 10:23 Hydrea PO 500 mg TUTHSA LESLIE Administration Ceftriaxone Sodium 2 gm in 100 mls @ 200 mls/hr 08/25/19 14:00 08/28/19 01:36 Rocephin/Ns 2 Gm/100 Ml IV 09/10/19 23:59 200 mls/hr Q12H LESLIE Administration Ampicillin Sodium 2 gm in 100 mls @ 100 mls/hr 08/26/19 12:00 08/28/19 04:24 Ampicillin/Ns 2 Gm/100 Ml IV 09/10/19 23:59 100 mls/hr Q4H LESLIE Administration Lisinopril 30 mg 08/14/19 10:00 08/27/19 10:23 Zestril PO 30 mg QDAY LESLIE Administration Lorazepam 1 mg 07/29/19 06:42 08/14/19 06:27 Ativan IV 1 mg Q4H PRN Administration Seizures Magnesium Hydroxide 30 ml 07/29/19 05:29 Milk Of Magnesia PO Q4H PRN Constipation Metoprolol Tartrate 50 mg 07/29/19 10:00 08/27/19 21:28 Lopressor PO 50 mg BID LESLIE Administration Ondansetron HCl 4 mg 07/29/19 05:29 08/10/19 10:49 Zofran IV 4 mg Q6H PRN Administration Nausea And Vomiting Simple Syrup 15 ml 08/14/19 10:45 Simple Syrup FEEDTUBE PRN PRN Hypoglycemia Simple Syrup 30 ml 08/14/19 10:45 Simple Syrup FEEDTUBE PRN PRN Hypoglycemia Sodium Bicarbonate 325 mg 08/14/19 10:45 Sodium Bicarbonate FEEDTUBE PRN PRN For Clogged Feeding Tube Sodium Chloride 10 ml 07/29/19 05:29 08/27/19 04:31 Sodium Chloride Flush Syringe 10 Ml IV 10 ml PRN PRN Administration LINE FLUSH
[2019-08-28] MEDS: ZESTRIL PO SCH (11:10)
[2019-08-28] MEDS: METOPROLOL PO SCH ×2 (11:10→21:32)
[2019-08-28] MEDS: ASPIRIN PO SCH (11:10)
[2019-08-28] MEDS: LASIX IV SCH (11:11)
--- NOTE | 2019-08-28 13:26 | Progress Note ---
Assessment and Plan /Acute pulmonary edema, resolved - Continue diuresis with Lasix, afterload reduction with hydralazine and echocardiogram negative for diastolic flow reversal and aorta. Aortic insufficiency not severe per cardiology. /Sepsis secondary to Acute mitral valve endocarditis with Enterococcus: TTE showed mitral valve vegetation. Appreciate Cardiology recs, no surgical intervention. -Picc line placed. discontinued Vancomycin. 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 -LP done, doubt meningitis, isolation discontinued /Acute encephalopathy with delirium secondary to Seizure precipitated by sepsis -Continue to monitor -Neurology consulted and input noted. Possible seizure rather than CVA also as evidenced by CT head, with no acute cva noted. - Psych evaluated and recommended outpatient follow-up /Accelerated Hypertension, POA -Continue to monitor BP -cont. present meds, stable /History of CVA -Hemorrhagic CVA 11/2018 -Ischemic CVA 02/2019 -Right-sided residual deficits with dysarthria -PT/OT eval recommending home with home health -Continue aspirin and statin therapy /Elevated d-dimer -D-dimer elevated at 1354.97 -V/Q scan negative for PE /Thrombocytosis JAK2 positive Heme/onc following hydroxyurea changed to 3x/wk /Dysphagia - tolerating diet DVT PPX -SCD's -start sq lovenox, d/w Heme/Onc Disposition. Discharge once IV abx arranged brief History Patient is a 53-year-old -Portuguese man who is nonverbal with history of COPD, hypertension, dyslipidemia, JAK2 positive with thrombocytosis and CVA 2 (hemorrhagic 11/2018 and ischemic 02/2019) with right-sided residual deficits who presents to [facility] ED with Altered mental status and difficulty breathing. He is unable to provide history; According to patient's family patient was found to be less responsive with difficulty breathing. EMS was called. Upon EMS' arrival to home he was found to be hypertensive with SBP in 200's, febrile, and tachycardic with audible wheezing. He was admitted for further evaluation and management. His blood culture grew Enterococcus faecalis with mitral valve vegetation. Now being treated for endocarditis with IV antibiotics, ID following. 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 Otherwise, the CTA of the head appears unremarkable * CTA neck with and without contrast: There is mild calcified plaque involving the proximal left ICA. However, there no CTA evidence of significant stenosis involving cervical carotid or vertebral arteries by NASCET criteria. * CXR: There is mild increase in interstitial markings bilaterally likely representing mild edema. * 07/30/19 MRI brain without contrast Impression: No focal mass, acute hemorrhage, hydrocephalus or acute ischemia * TTE: 1. Mitral valve vegetation. 2. Moderate MR. 3. Normal LV function EF 55- 60%. 4. Mild-moderate AR. Cultures: 07/29/2019 Blood culture: Enterococcus faecalis Urine culture: mixed growth 07/30/2019 Blood culture: no growth at 48 hours Hospitalist Physical GENERAL: well-developed and well-nourished -Portuguese male lying on bed appeared to be in no discomfort. HEENT: Normocephalic. Atraumatic. No conjunctival congestion or icterus. Patient has moist mucous membranes. NECK: Supple. Trachea midline. CHEST/LUNGS: Positive wheezes auscultated bilaterally, breathing nonlabored. No crackles or rhonchi. HEART/CARDIOVASCULAR: Regular in rate and rhythm. S1 and S2 positive. ABDOMEN: Abdomen is soft, nontender. Patient has normal bowel sounds. SKIN: There is no rash. Warm and dry. NEURO: Dysarthric. Follows command. MUSCULOSKELETAL: No joint effusion or tenderness. EXTRIMITY: No edema, no cyanosis or clubbing. PSYCH: Cooperative. Subjective Date of service: 08/28/19 Principal diagnosis: CMPD Interval history: Patient seen and examined Acute event overnight Denies any chest pain or shortness of breath Placement pending on insurance and financial support Objective - Constitutional Vitals: Vital Signs - 12hr 08/28/19 08/28/19 08/28/19 05:25 06:33 11:10 Temperature 97.7 F Pulse Rate 66 66 76 Respiratory 18 Rate Blood Pressure 144/73 143/73 124/70 Blood Pressure [Right] O2 Sat by Pulse 93 Oximetry 08/28/19 08/28/19 11:14 11:24 Temperature 97 F L Pulse Rate 74 Respiratory 18 Rate Blood Pressure 124/70 Blood Pressure 124/70 [Right] O2 Sat by Pulse 98 Oximetry - Labs CBC & Chem 7: 08/26/19 10:00 08/26/19 10:00
[2019-08-28] MEDS: ENOXAPARIN SUB-Q SCH (21:31)
[2019-08-29] MEDS: AMPICILLIN/NS 2 GM/100 ML 2 GM/100 ML BAG IV SCH ×6 (00:08→22:34)
[2019-08-29] MEDS: ROCEPHIN/NS 2 GM/100 ML 2 GM/100 ML BAG IV SCH ×2 (02:11→13:06)
[2019-08-29] MEDS: APRESOLINE PO SCH ×3 (05:55→22:39)
--- NOTE | 2019-08-29 07:08 | Hem/Onc Progress Note ---
Assessment and Plan 1. h/o Unresponsiveness, history of fever. ID team following. 2. JAK2 mutation. The patient was on hydroxyurea, white cell count was low, Hydrea had been held. 3. History of chronic obstructive pulmonary disease. 4. History of hypertension. 5. History of hyperlipidemia. 6. History of cerebrovascular accident. 7. History of left renal cell cancer removal. 8. V/Q scan is negative for pulmonary embolism. 9. Lumbar puncture done 10. I will follow the patient during inpatient stay. pt awake - but speech slurred follows command of moving legs and opening mouth as per old notes - pt had been with Dr Frankel He was admitted to [facility] in feb 2019 - with CVA ID - Infective endocardititis - on ABX 08/29 pt was on hydrea for CMPD - this was held as WBC was low restarted hydrea at a lower frequency - TIW WBC fluctuating as he was walking away from the hospital - he is being watched placement pending pt will continue TIW hydrea for now wbc stable - Patient Problems (1) Myeloproliferative disease Current Visit: No Status: Acute Subjective Date of service: 08/29/19 Principal diagnosis: CMPD Interval history: no bleeding Objective - Exam Narrative Exam: Pain - n/a General appearance - awake - but slurred speech Performance status complete dependence Eyes - no icterus ENT - no bleeding LNs cervical not palpable Neck - no LN Respiratory Normal Breath sounds - CTA anteriorly CVS S1 S2 + Extremities no calf tenderness General GI Soft - PEG + Rectal deferred male - deferred Skin warm Musculoskeletal moving extremitites Neurologically awake - slurred speech - Constitutional Vitals: Last Vital Signs Temp 98.3 F 08/29/19 05:48 Pulse 69 08/29/19 05:55 Resp 20 08/29/19 05:48 BP 135/67 08/29/19 05:55 Pulse Ox 96 08/29/19 05:48 Medications & Allergies - Medications Allergies/Adverse Reactions: Allergies No Known Allergies Allergy (Unverified 07/17/14 19:25) Home Medications: Home Medications Medication Instructions Recorded Confirmed Last Taken Type Metoprolol Tartrate 50 mg PO BID 03/05/19 07/29/19 07/28/19 History QUEtiapine 50 mg PO DAILY 03/05/19 07/29/19 Unknown History Aspirin 325 mg PO QDAY tablet 03/11/19 07/29/1919 17:39 Rx AtorvaSTATin [Lipitor] 80 mg PO QHS tablet 03/11/19 07/29/19 Unknown Rx Lisinopril [Zestril TAB] 20 mg PO QDAY tablet 03/11/19 07/29/19 Unknown Rx traZODone [Desyrel] 50 mg PO QDAY PRN tablet 03/11/19 07/29/19 Unknown Rx Hydroxyurea [Hydrea] 500 mg PO TuThSa@1000 #30 capsule 08/05/19 Unknown Rx Active Medications: Generic Name Dose Route Start Last Admin Trade Name Freq PRN Reason Stop Dose Admin Acetaminophen 650 mg 07/29/19 05:29 Tylenol PO Q4H PRN Pain, Mild (1-3), fever 100.5> Acetaminophen/Hydrocodone Bitart 1 each 07/29/19 21:50 08/26/19 05:19 [place] 5/325 PO 1 each Q4H PRN Administration Pain, Moderate (4-6) Albuterol 2.5 mg 08/10/19 02:48 08/11/19 17:54 Proventil IH 2.5 mg Q4HRT PRN Administration Shortness Of Breath Lipase/Protease/Amylase 1 each 08/14/19 10:[address] 10,500 Unit FEEDTUBE PRN PRN For Clogged Feeding Tube Aspirin 325 mg 07/29/19 10:00 08/28/19 11:10 Aspirin PO 325 mg QDAY LESLIE Administration Atorvastatin Calcium 80 mg 07/29/19 22:00 08/28/19 21:31 Lipitor PO 80 mg QHS LESLIE Administration Bisacodyl 10 mg 07/29/19 05:29 Dulcolax DE QDAY PRN Constipation Enoxaparin Sodium 40 mg 08/08/19 10:00 08/28/19 21:31 Lovenox SUB-Q 40 mg QDAY@2200 LESLIE Administration Furosemide 40 mg 08/29/19 10:00 Lasix PO QDAY LESLIE Hydralazine HCl 10 mg 08/01/19 05:00 08/17/19 00:01 Apresoline IV 10 mg Q4HR PRN Administration Hypertension Hydralazine HCl 25 mg 08/16/19 14:00 08/29/19 05:55 Apresoline PO 25 mg Q8HR LESLIE Administration Hydroxyurea 500 mg 08/24/19 10:00 08/27/19 10:23 Hydrea PO 500 mg TUTHSA LESLIE Administration Ceftriaxone Sodium 2 gm in 100 mls @ 200 mls/hr 08/25/19 14:00 08/29/19 02:11 Rocephin/Ns 2 Gm/100 Ml IV 09/10/19 23:59 200 mls/hr Q12H LESLIE Administration Ampicillin Sodium 2 gm in 100 mls @ 100 mls/hr 08/26/19 12:00 08/29/19 04:17 Ampicillin/Ns 2 Gm/100 Ml IV 09/10/19 23:59 100 mls/hr Q4H LESLIE Administration Lisinopril 30 mg 08/14/19 10:00 08/28/19 11:10 Zestril PO 30 mg QDAY LESLIE Administration Lorazepam 1 mg 07/29/19 06:42 08/14/19 06:27 Ativan IV 1 mg Q4H PRN Administration Seizures Magnesium Hydroxide 30 ml 07/29/19 05:29 Milk Of Magnesia PO Q4H PRN Constipation Metoprolol Tartrate 50 mg 07/29/19 10:00 08/28/19 21:32 Lopressor PO 50 mg BID LESLIE Administration Ondansetron HCl 4 mg 07/29/19 05:29 08/10/19 10:49 Zofran IV 4 mg Q6H PRN Administration Nausea And Vomiting Simple Syrup 15 ml 08/14/19 10:45 Simple Syrup FEEDTUBE PRN PRN Hypoglycemia Simple Syrup 30 ml 08/14/19 10:45 Simple Syrup FEEDTUBE PRN PRN Hypoglycemia Sodium Bicarbonate 325 mg 08/14/19 10:45 Sodium Bicarbonate FEEDTUBE PRN PRN For Clogged Feeding Tube Sodium Chloride 10 ml 07/29/19 05:29 08/27/19 04:31 Sodium Chloride Flush Syringe 10 Ml IV 10 ml PRN PRN Administration LINE FLUSH
[2019-08-29] MEDS: ZESTRIL PO SCH (09:20)
[2019-08-29] MEDS: LASIX PO SCH (09:20)
[2019-08-29] MEDS: METOPROLOL PO SCH ×2 (09:20→22:39)
[2019-08-29] MEDS: ASPIRIN PO SCH (09:20)
[2019-08-29] MEDS: SODIUM CHLORIDE FLUSH SYRINGE 10 ML IV PRN (09:24)
[2019-08-29] MEDS: HYDROXYUREA PO SCH (12:51)
--- NOTE | 2019-08-29 16:09 | Progress Note ---
Assessment and Plan /Acute pulmonary edema, resolved - Continue diuresis with Lasix, afterload reduction with hydralazine and echocardiogram negative for diastolic flow reversal and aorta. Aortic insufficiency not severe per cardiology. /Sepsis secondary to Acute mitral valve endocarditis with Enterococcus: TTE showed mitral valve vegetation. Appreciate Cardiology recs, no surgical intervention. -Picc line placed. discontinued Vancomycin. 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 -LP done, doubt meningitis, isolation discontinued /Acute encephalopathy with delirium secondary to Seizure precipitated by sepsis -Continue to monitor -Neurology consulted and input noted. Possible seizure rather than CVA also as evidenced by CT head, with no acute cva noted. - Psych evaluated and recommended outpatient follow-up /Accelerated Hypertension, POA -Continue to monitor BP -cont. present meds, stable /History of CVA -Hemorrhagic CVA 11/2018 -Ischemic CVA 02/2019 -Right-sided residual deficits with dysarthria -PT/OT eval recommending home with home health -Continue aspirin and statin therapy /Elevated d-dimer -D-dimer elevated at 1354.97 -V/Q scan negative for PE /Thrombocytosis JAK2 positive Heme/onc following hydroxyurea changed to 3x/wk /Dysphagia - tolerating diet DVT PPX -SCD's -start sq lovenox, d/w Heme/Onc Disposition. Discharge once IV abx arranged brief History Patient is a 53-year-old -[place] man who is nonverbal with history of COPD, hypertension, dyslipidemia, JAK2 positive with thrombocytosis and CVA 2 (hemorrhagic 11/2018 and ischemic 02/2019) with right-sided residual deficits who presents to [facility] ED with Altered mental status and difficulty breathing. He is unable to provide history; According to patient's family patient was found to be less responsive with difficulty breathing. EMS was called. Upon EMS' arrival to home he was found to be hypertensive with SBP in 200's, febrile, and tachycardic with audible wheezing. He was admitted for further evaluation and management. His blood culture grew Enterococcus faecalis with mitral valve vegetation. Now being treated for endocarditis with IV antibiotics, ID following. 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 Otherwise, the CTA of the head appears unremarkable * CTA neck with and without contrast: There is mild calcified plaque involving the proximal left ICA. However, there no CTA evidence of significant stenosis involving cervical carotid or vertebral arteries by NASCET criteria. * CXR: There is mild increase in interstitial markings bilaterally likely representing mild edema. * 07/30/19 MRI brain without contrast Impression: No focal mass, acute hemorrhage, hydrocephalus or acute ischemia * TTE: 1. Mitral valve vegetation. 2. Moderate MR. 3. Normal LV function EF 55- 60%. 4. Mild-moderate AR. Cultures: 07/29/2019 Blood culture: Enterococcus faecalis Urine culture: mixed growth 07/30/2019 Blood culture: no growth at 48 hours Hospitalist Physical GENERAL: well-developed and well-nourished -[place] male lying on bed appeared to be in no discomfort. HEENT: Normocephalic. Atraumatic. No conjunctival congestion or icterus. Patient has moist mucous membranes. NECK: Supple. Trachea midline. CHEST/LUNGS: Positive wheezes auscultated bilaterally, breathing nonlabored. No crackles or rhonchi. HEART/CARDIOVASCULAR: Regular in rate and rhythm. S1 and S2 positive. ABDOMEN: Abdomen is soft, nontender. Patient has normal bowel sounds. SKIN: There is no rash. Warm and dry. NEURO: Dysarthric. Follows command. MUSCULOSKELETAL: No joint effusion or tenderness. EXTRIMITY: No edema, no cyanosis or clubbing. PSYCH: Cooperative. Subjective Date of service: 08/29/19 Principal diagnosis: CMPD Interval history: Patient seen and examined Acute event overnight Denies any chest pain or shortness of breath Placement pending on insurance and financial support Objective - Constitutional Vitals: Vital Signs - 12hr 08/29/19 08/29/19 08/29/19 05:48 05:55 08:58 Temperature 98.3 F Pulse Rate 71 69 Respiratory 20 Rate Blood Pressure 146/73 135/67 O2 Sat by Pulse 96 97 Oximetry 08/29/19 08/29/19 08/29/19 09:19 09:20 12:19 Temperature 98.2 F Pulse Rate 82 83 Respiratory 20 16 Rate Blood Pressure 133/86 133/66 140/87 O2 Sat by Pulse 97 90 Oximetry 08/29/19 13:42 Temperature Pulse Rate Respiratory Rate Blood Pressure 140/87 O2 Sat by Pulse Oximetry - Labs CBC & Chem 7: 08/26/19 10:00 08/26/19 10:00
[2019-08-29] MEDS: ENOXAPARIN SUB-Q SCH (22:34)
[2019-08-30] MEDS: AMPICILLIN/NS 2 GM/100 ML 2 GM/100 ML BAG IV SCH ×6 (01:02→23:23)
[2019-08-30] MEDS: ROCEPHIN/NS 2 GM/100 ML 2 GM/100 ML BAG IV SCH ×2 (03:28→13:48)
[2019-08-30] MEDS: APRESOLINE PO SCH ×3 (06:46→23:26)
--- NOTE | 2019-08-30 07:05 | Hem/Onc Progress Note ---
Assessment and Plan 1. h/o Unresponsiveness, history of fever. ID team following. 2. JAK2 mutation. The patient was on hydroxyurea, white cell count was low, Hydrea had been held. 3. History of chronic obstructive pulmonary disease. 4. History of hypertension. 5. History of hyperlipidemia. 6. History of cerebrovascular accident. 7. History of left renal cell cancer removal. 8. V/Q scan is negative for pulmonary embolism. 9. Lumbar puncture done 10. I will follow the patient during inpatient stay. pt awake - but speech slurred follows command of moving legs and opening mouth as per old notes - pt had been with Dr Frankel He was admitted to [facility] in feb 2019 - with CVA ID - Infective endocardititis - on ABX 08/30 pt was on hydrea for CMPD - this was held as WBC was low restarted hydrea at a lower frequency - TIW WBC fluctuating as he was walking away from the hospital - he is being watched placement pending pt will continue TIW hydrea for now wbc stable - Patient Problems (1) Myeloproliferative disease Current Visit: No Status: Acute Subjective Date of service: 08/30/19 Principal diagnosis: CMPD Interval history: no bleeding Objective - Exam Narrative Exam: Pain - n/a General appearance - awake - but slurred speech Performance status complete dependence Eyes - no icterus ENT - no bleeding LNs cervical not palpable Neck - no LN Respiratory Normal Breath sounds - CTA anteriorly CVS S1 S2 + Extremities no calf tenderness General GI Soft - PEG + Rectal deferred male - deferred Skin warm Musculoskeletal moving extremitites Neurologically awake - slurred speech - Constitutional Vitals: Last Vital Signs Temp 97.9 F 08/30/19 04:21 Pulse 65 08/30/19 04:21 Resp 18 08/30/19 04:21 BP 131/82 08/30/19 04:21 Pulse Ox 98 08/30/19 04:21 Medications & Allergies - Medications Allergies/Adverse Reactions: Allergies No Known Allergies Allergy (Unverified 07/17/14 19:25) Home Medications: Home Medications Medication Instructions Recorded Confirmed Last Taken Type Metoprolol Tartrate 50 mg PO BID 03/05/19 07/29/19 07/28/19 History QUEtiapine 50 mg PO DAILY 03/05/19 07/29/19 Unknown History Aspirin 325 mg PO QDAY tablet 03/11/19 07/29/1919 17:39 Rx AtorvaSTATin [Lipitor] 80 mg PO QHS tablet 03/11/19 07/29/19 Unknown Rx Lisinopril [Zestril TAB] 20 mg PO QDAY tablet 03/11/19 07/29/19 Unknown Rx traZODone [Desyrel] 50 mg PO QDAY PRN tablet 03/11/19 07/29/19 Unknown Rx Hydroxyurea [Hydrea] 500 mg PO TuThSa@1000 #30 capsule 08/05/19 Unknown Rx Active Medications: Generic Name Dose Route Start Last Admin Trade Name Freq PRN Reason Stop Dose Admin Acetaminophen 650 mg 07/29/19 05:29 Tylenol PO Q4H PRN Pain, Mild (1-3), fever 100.5> Albuterol 2.5 mg 08/10/19 02:48 08/11/19 17:54 Proventil IH 2.5 mg Q4HRT PRN Administration Shortness Of Breath Lipase/Protease/Amylase 1 each 08/14/19 10:[address] 10,500 Unit FEEDTUBE PRN PRN For Clogged Feeding Tube Aspirin 325 mg 07/29/19 10:00 08/29/19 09:20 Aspirin PO 325 mg QDAY LESLIE Administration Atorvastatin Calcium 80 mg 07/29/19 22:00 08/29/19 22:40 Lipitor PO 80 mg QHS LESLIE Administration Bisacodyl 10 mg 07/29/19 05:[address] QDAY PRN Constipation Enoxaparin Sodium 40 mg 08/08/19 10:00 08/29/19 22:34 Lovenox SUB-Q 40 mg QDAY@2200 LESLIE Administration Furosemide 40 mg 08/29/19 10:00 08/29/19 09:20 Lasix PO 40 mg QDAY LESLIE Administration Hydralazine HCl 10 mg 08/01/19 05:00 08/17/19 00:01 Apresoline IV 10 mg Q4HR PRN Administration Hypertension Hydralazine HCl 25 mg 08/16/19 14:00 08/30/19 06:46 Apresoline PO Not Given Q8HR LESLIE Hydroxyurea 500 mg 08/24/19 10:00 08/29/19 12:51 Hydrea PO 500 mg TUTHSA LESLIE Administration Ceftriaxone Sodium 2 gm in 100 mls @ 200 mls/hr 10/13/19 14:00 08/30/19 03:28 Rocephin/Ns 2 Gm/100 Ml IV 09/10/19 23:59 200 mls/hr Q12H LESLIE Administration Ampicillin Sodium 2 gm in 100 mls @ 100 mls/hr 08/26/19 12:00 08/30/19 04:27 Ampicillin/Ns 2 Gm/100 Ml IV 09/10/19 23:59 100 mls/hr Q4H LESLIE Administration Lisinopril 30 mg 08/14/19 10:00 08/29/19 09:20 Zestril PO 30 mg QDAY LESLIE Administration Lorazepam 1 mg 07/29/19 06:42 08/14/19 06:27 Ativan IV 1 mg Q4H PRN Administration Seizures Magnesium Hydroxide 30 ml 07/29/19 05:29 Milk Of Magnesia PO Q4H PRN Constipation Metoprolol Tartrate 50 mg 07/29/19 10:00 08/29/19 22:39 Lopressor PO 50 mg BID LESLIE Administration Ondansetron HCl 4 mg 07/29/19 05:29 08/10/19 10:49 Zofran IV 4 mg Q6H PRN Administration Nausea And Vomiting Simple Syrup 15 ml 08/14/19 10:45 Simple Syrup FEEDTUBE PRN PRN Hypoglycemia Simple Syrup 30 ml 08/14/19 10:45 Simple Syrup FEEDTUBE PRN PRN Hypoglycemia Sodium Bicarbonate 325 mg 08/14/19 10:45 Sodium Bicarbonate FEEDTUBE PRN PRN For Clogged Feeding Tube Sodium Chloride 10 ml 07/29/19 05:29 08/29/19 09:24 Sodium Chloride Flush Syringe 10 Ml IV 10 ml PRN PRN Administration LINE FLUSH
[2019-08-30] MEDS: ZESTRIL PO SCH ×2 (08:44→10:00)
[2019-08-30] MEDS: METOPROLOL PO SCH ×3 (08:45→23:26)
[2019-08-30] MEDS: ASPIRIN PO SCH ×2 (08:45→10:00)
[2019-08-30] MEDS: LASIX PO SCH ×2 (08:45→10:00)
--- NOTE | 2019-08-30 11:45 | Progress Note ---
Assessment and Plan /Acute pulmonary edema, resolved - Continue diuresis with Lasix, afterload reduction with hydralazine and echocardiogram negative for diastolic flow reversal and aorta. Aortic insufficiency not severe per cardiology. /Sepsis secondary to Acute mitral valve endocarditis with Enterococcus: TTE showed mitral valve vegetation. Appreciate Cardiology recs, no surgical intervention. -Picc line placed. discontinued Vancomycin. 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 -LP done, doubt meningitis, isolation discontinued /Acute encephalopathy with delirium secondary to Seizure precipitated by sepsis -Continue to monitor -Neurology consulted and input noted. Possible seizure rather than CVA also as evidenced by CT head, with no acute cva noted. - Psych evaluated and recommended outpatient follow-up /Accelerated Hypertension, POA -Continue to monitor BP -cont. present meds, stable /History of CVA -Hemorrhagic CVA 11/2018 -Ischemic CVA 02/2019 -Right-sided residual deficits with dysarthria -PT/OT eval recommending home with home health -Continue aspirin and statin therapy /Elevated d-dimer -D-dimer elevated at 1354.97 -V/Q scan negative for PE /Thrombocytosis JAK2 positive Heme/onc following hydroxyurea changed to 3x/wk /Dysphagia - tolerating diet DVT PPX -SCD's -start sq lovenox, d/w Heme/Onc Disposition. Discharge once IV abx and placement arranged brief History Patient is a 53-year-old -[place] man who is nonverbal with history of COPD, hypertension, dyslipidemia, JAK2 positive with thrombocytosis and CVA 2 (hemorrhagic 11/2018 and ischemic 02/2019) with right-sided residual deficits who presents to [facility] ED with Altered mental status and difficulty breathing. He is unable to provide history; According to patient's family patient was found to be less responsive with difficulty breathing. EMS was called. Upon EMS' arrival to home he was found to be hypertensive with SBP in 200's, febrile, and tachycardic with audible wheezing. He was admitted for further evaluation and management. His blood culture grew Enterococcus faecalis with mitral valve vegetation. Now being treated for endocarditis with IV antibiotics, ID following. 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 Otherwise, the CTA of the head appears unremarkable * CTA neck with and without contrast: There is mild calcified plaque involving the proximal left ICA. However, there no CTA evidence of significant stenosis involving cervical carotid or vertebral arteries by NASCET criteria. * CXR: There is mild increase in interstitial markings bilaterally likely representing mild edema. * 07/30/19 MRI brain without contrast Impression: No focal mass, acute hemorrhage, hydrocephalus or acute ischemia * TTE: 1. Mitral valve vegetation. 2. Moderate MR. 3. Normal LV function EF 55- 60%. 4. Mild-moderate AR. Cultures: 07/29/2019 Blood culture: Enterococcus faecalis Urine culture: mixed growth 07/30/2019 Blood culture: no growth at 48 hours Hospitalist Physical GENERAL: well-developed and well-nourished -[place] male lying on bed appeared to be in no discomfort. HEENT: Normocephalic. Atraumatic. No conjunctival congestion or icterus. Patient has moist mucous membranes. NECK: Supple. Trachea midline. CHEST/LUNGS: Positive wheezes auscultated bilaterally, breathing nonlabored. No crackles or rhonchi. HEART/CARDIOVASCULAR: Regular in rate and rhythm. S1 and S2 positive. ABDOMEN: Abdomen is soft, nontender. Patient has normal bowel sounds. SKIN: There is no rash. Warm and dry. NEURO: Dysarthric. Follows command. MUSCULOSKELETAL: No joint effusion or tenderness. EXTRIMITY: No edema, no cyanosis or clubbing. PSYCH: Cooperative. Subjective Date of service: 08/30/19 Principal diagnosis: CMPD Interval history: Patient seen and examined Acute event overnight Denies any chest pain or shortness of breath Placement pending on insurance and financial support Objective - Constitutional Vitals: Vital Signs - 12hr 08/30/19 08/30/19 04:21 08:42 Temperature 97.9 F Pulse Rate 65 Respiratory 18 Rate Blood Pressure 131/82 O2 Sat by Pulse 98 100 Oximetry - Labs CBC & Chem 7: 08/26/19 10:00 08/26/19 10:00
[2019-08-30] MEDS: ENOXAPARIN SUB-Q SCH (23:25)
[2019-08-30] MEDS: ATIVAN IV PRN (23:27)
[2019-08-31] MEDS: AMPICILLIN/NS 2 GM/100 ML 2 GM/100 ML BAG IV SCH ×7 (00:52→23:53)
[2019-08-31] MEDS: ROCEPHIN/NS 2 GM/100 ML 2 GM/100 ML BAG IV SCH ×3 (02:25→17:29)
[2019-08-31] MEDS: APRESOLINE PO SCH ×3 (06:13→22:46)
[2019-08-31] MEDS: ZESTRIL PO SCH (09:09)
[2019-08-31] MEDS: ASPIRIN PO SCH (09:09)
[2019-08-31] MEDS: METOPROLOL PO SCH ×2 (09:12→22:47)
[2019-08-31] MEDS: HYDROXYUREA PO SCH (13:42)
[2019-08-31] MEDS: LASIX PO SCH (13:42)
--- NOTE | 2019-08-31 14:27 | Progress Note ---
Assessment and Plan /Acute pulmonary edema, resolved - Continue diuresis with Lasix, afterload reduction with hydralazine and echocardiogram negative for diastolic flow reversal and aorta. Aortic insufficiency not severe per cardiology. /Sepsis secondary to Acute mitral valve endocarditis with Enterococcus: TTE showed mitral valve vegetation. Appreciate Cardiology recs, no surgical intervention. -Picc line placed. discontinued Vancomycin. 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 -LP done, doubt meningitis, isolation discontinued /Acute encephalopathy with delirium secondary to Seizure precipitated by sepsis -Continue to monitor -Neurology consulted and input noted. Possible seizure rather than CVA also as evidenced by CT head, with no acute cva noted. - Psych evaluated and recommended outpatient follow-up /Accelerated Hypertension, POA -Continue to monitor BP -cont. present meds, stable /History of CVA -Hemorrhagic CVA 11/2018 -Ischemic CVA 02/2019 -Right-sided residual deficits with dysarthria -PT/OT eval recommending home with home health -Continue aspirin and statin therapy /Elevated d-dimer -D-dimer elevated at 1354.97 -V/Q scan negative for PE /Thrombocytosis JAK2 positive Heme/onc following hydroxyurea changed to 3x/wk /Dysphagia - tolerating diet DVT PPX -SCD's -start sq lovenox, d/w Heme/Onc Disposition. Discharge once IV abx and placement arranged brief History Patient is a 53-year-old -[place] man who is nonverbal with history of COPD, hypertension, dyslipidemia, JAK2 positive with thrombocytosis and CVA 2 (hemorrhagic 11/2018 and ischemic 02/2019) with right-sided residual deficits who presents to [facility] ED with Altered mental status and difficulty breathing. He is unable to provide history; According to patient's family patient was found to be less responsive with difficulty breathing. EMS was called. Upon EMS' arrival to home he was found to be hypertensive with SBP in 200's, febrile, and tachycardic with audible wheezing. He was admitted for further evaluation and management. His blood culture grew Enterococcus faecalis with mitral valve vegetation. Now being treated for endocarditis with IV antibiotics, ID following. 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 Otherwise, the CTA of the head appears unremarkable * CTA neck with and without contrast: There is mild calcified plaque involving the proximal left ICA. However, there no CTA evidence of significant stenosis involving cervical carotid or vertebral arteries by NASCET criteria. * CXR: There is mild increase in interstitial markings bilaterally likely representing mild edema. * 07/30/19 MRI brain without contrast Impression: No focal mass, acute hemorrhage, hydrocephalus or acute ischemia * TTE: 1. Mitral valve vegetation. 2. Moderate MR. 3. Normal LV function EF 55- 60%. 4. Mild-moderate AR. Cultures: 07/29/2019 Blood culture: Enterococcus faecalis Urine culture: mixed growth 07/30/2019 Blood culture: no growth at 48 hours Hospitalist Physical GENERAL: well-developed and well-nourished -[place] male lying on bed appeared to be in no discomfort. HEENT: Normocephalic. Atraumatic. No conjunctival congestion or icterus. Patient has moist mucous membranes. NECK: Supple. Trachea midline. CHEST/LUNGS: Positive wheezes auscultated bilaterally, breathing nonlabored. No crackles or rhonchi. HEART/CARDIOVASCULAR: Regular in rate and rhythm. S1 and S2 positive. ABDOMEN: Abdomen is soft, nontender. Patient has normal bowel sounds. SKIN: There is no rash. Warm and dry. NEURO: Dysarthric. Follows command. MUSCULOSKELETAL: No joint effusion or tenderness. EXTRIMITY: No edema, no cyanosis or clubbing. PSYCH: Cooperative. Subjective Date of service: 08/31/19 Principal diagnosis: CMPD Interval history: Patient seen and examined Acute event overnight Denies any chest pain or shortness of breath Placement pending on insurance and financial support Objective - Constitutional Vitals: Vital Signs - 12hr 08/31/19 08/31/19 08/31/19 09:09 11:52 13:38 Temperature 97.0 F L Pulse Rate 92 H 66 72 Respiratory 20 Rate Blood Pressure 130/80 113/59 120/80 O2 Sat by Pulse 99 Oximetry - Labs CBC & Chem 7: 08/26/19 10:00 08/26/19 10:00
[2019-08-31] MEDS: ENOXAPARIN SUB-Q SCH (22:46)
[2019-09-01] MEDS: ROCEPHIN/NS 2 GM/100 ML 2 GM/100 ML BAG IV SCH ×2 (01:23→14:33)
[2019-09-01] MEDS: AMPICILLIN/NS 2 GM/100 ML 2 GM/100 ML BAG IV SCH ×6 (03:20→20:21)
[2019-09-01] MEDS: APRESOLINE PO SCH ×3 (05:44→22:30)
[2019-09-01] MEDS: LASIX PO SCH (10:31)
[2019-09-01] MEDS: ASPIRIN PO SCH (10:31)
[2019-09-01] MEDS: METOPROLOL PO SCH ×2 (10:40→22:30)
[2019-09-01] MEDS: ZESTRIL PO SCH (10:41)
--- NOTE | 2019-09-01 10:52 | Progress Note ---
Assessment and Plan /Acute pulmonary edema, resolved - Continue diuresis with Lasix, afterload reduction with hydralazine and echocardiogram negative for diastolic flow reversal and aorta. Aortic insufficiency not severe per cardiology. /Sepsis secondary to Acute mitral valve endocarditis with Enterococcus: TTE showed mitral valve vegetation. Appreciate Cardiology recs, no surgical intervention. -Picc line placed. discontinued Vancomycin. 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 -LP done, doubt meningitis, isolation discontinued /Acute encephalopathy with delirium secondary to Seizure precipitated by sepsis -Continue to monitor -Neurology consulted and input noted. Possible seizure rather than CVA also as evidenced by CT head, with no acute cva noted. - Psych evaluated and recommended outpatient follow-up /Accelerated Hypertension, POA -Continue to monitor BP -cont. present meds, stable /History of CVA -Hemorrhagic CVA 11/2018 -Ischemic CVA 02/2019 -Right-sided residual deficits with dysarthria -PT/OT eval recommending home with home health -Continue aspirin and statin therapy /Elevated d-dimer -D-dimer elevated at 1354.97 -V/Q scan negative for PE /Thrombocytosis JAK2 positive Heme/onc following hydroxyurea changed to 3x/wk /Dysphagia - tolerating diet DVT PPX -SCD's -start sq lovenox, d/w Heme/Onc Disposition. Discharge once IV abx and placement arranged brief History Patient is a 53-year-old -[place] man who is nonverbal with history of COPD, hypertension, dyslipidemia, JAK2 positive with thrombocytosis and CVA 2 (hemorrhagic 11/2018 and ischemic 02/2019) with right-sided residual deficits who presents to [facility] ED with Altered mental status and difficulty breathing. He is unable to provide history; According to patient's family patient was found to be less responsive with difficulty breathing. EMS was called. Upon EMS' arrival to home he was found to be hypertensive with SBP in 200's, febrile, and tachycardic with audible wheezing. He was admitted for further evaluation and management. His blood culture grew Enterococcus faecalis with mitral valve vegetation. Now being treated for endocarditis with IV antibiotics, ID following. 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 Otherwise, the CTA of the head appears unremarkable * CTA neck with and without contrast: There is mild calcified plaque involving the proximal left ICA. However, there no CTA evidence of significant stenosis involving cervical carotid or vertebral arteries by NASCET criteria. * CXR: There is mild increase in interstitial markings bilaterally likely representing mild edema. * 07/30/19 MRI brain without contrast Impression: No focal mass, acute hemorrhage, hydrocephalus or acute ischemia * TTE: 1. Mitral valve vegetation. 2. Moderate MR. 3. Normal LV function EF 55- 60%. 4. Mild-moderate AR. Cultures: 07/29/2019 Blood culture: Enterococcus faecalis Urine culture: mixed growth 07/30/2019 Blood culture: no growth at 48 hours Hospitalist Physical GENERAL: well-developed and well-nourished -[place] male lying on bed appeared to be in no discomfort. HEENT: Normocephalic. Atraumatic. No conjunctival congestion or icterus. Patient has moist mucous membranes. NECK: Supple. Trachea midline. CHEST/LUNGS: Positive wheezes auscultated bilaterally, breathing nonlabored. No crackles or rhonchi. HEART/CARDIOVASCULAR: Regular in rate and rhythm. S1 and S2 positive. ABDOMEN: Abdomen is soft, nontender. Patient has normal bowel sounds. SKIN: There is no rash. Warm and dry. NEURO: Dysarthric. Follows command. MUSCULOSKELETAL: No joint effusion or tenderness. EXTRIMITY: No edema, no cyanosis or clubbing. PSYCH: Cooperative. Subjective Date of service: 09/01/19 Principal diagnosis: CMPD Interval history: Patient seen and examined Acute event overnight Denies any chest pain or shortness of breath Placement pending on insurance and financial support Objective - Constitutional Vitals: Vital Signs - 12hr 08/31/19 09/01/19 09/01/19 23:43 05:12 05:44 Temperature 97.8 F 98.2 F Pulse Rate 69 77 77 Respiratory 18 20 Rate Blood Pressure 125/76 155/76 155/76 O2 Sat by Pulse 94 91 Oximetry 09/01/19 09/01/19 10:40 10:41 Temperature Pulse Rate 76 76 Respiratory Rate Blood Pressure 129/78 129/78 O2 Sat by Pulse Oximetry - Labs CBC & Chem 7: 08/26/19 10:00 08/26/19 10:00
--- NOTE | 2019-09-01 13:03 | Hem/Onc Progress Note ---
Assessment and Plan 1. h/o Unresponsiveness, history of fever. ID team following. 2. JAK2 mutation. The patient was on hydroxyurea, white cell count was low, Hydrea had been held. 3. History of chronic obstructive pulmonary disease. 4. History of hypertension. 5. History of hyperlipidemia. 6. History of cerebrovascular accident. 7. History of left renal cell cancer removal. 8. V/Q scan is negative for pulmonary embolism. 9. Lumbar puncture done 10. I will follow the patient during inpatient stay. pt awake - but speech slurred follows command of moving legs and opening mouth as per old notes - pt had been with Dr Frankel He was admitted to [facility] in feb 2019 - with CVA ID - Infective endocardititis - on ABX 09/01 pt was on hydrea for CMPD - this was held as WBC was low restarted hydrea at a lower frequency - TIW WBC fluctuating as he was walking away from the hospital - he is being watched placement pending pt will continue TIW hydrea for now wbc stable pt sitting on chair - Patient Problems (1) Myeloproliferative disease Current Visit: No Status: Acute Subjective Date of service: 09/01/19 Principal diagnosis: cmpd Interval history: no bleeding Objective - Exam Narrative Exam: Pain - n/a General appearance - awake - but slurred speech Performance status complete dependence Eyes - no icterus ENT - no bleeding LNs cervical not palpable Neck - no LN Respiratory Normal Breath sounds - CTA anteriorly CVS S1 S2 + Extremities no calf tenderness General GI Soft - PEG + Rectal deferred male - deferred Skin warm Musculoskeletal moving extremitites Neurologically awake - slurred speech - Constitutional Vitals: Last Vital Signs Temp 97.7 F 09/01/19 11:33 Pulse 66 09/01/19 11:33 Resp 18 09/01/19 11:33 BP 132/77 09/01/19 11:33 Pulse Ox 98 09/01/19 11:33 Medications & Allergies - Medications Allergies/Adverse Reactions: Allergies No Known Allergies Allergy (Unverified 07/17/14 19:25) Home Medications: Home Medications Medication Instructions Recorded Confirmed Last Taken Type Metoprolol Tartrate 50 mg PO BID 03/05/19 07/29/19 07/28/19 History QUEtiapine 50 mg PO DAILY 03/05/19 07/29/19 Unknown History Aspirin 325 mg PO QDAY tablet 03/11/19 07/29/19 07/29/19 17:39 Rx AtorvaSTATin [Lipitor] 80 mg PO QHS tablet 03/11/19 07/29/19 Unknown Rx Lisinopril [Zestril TAB] 20 mg PO QDAY tablet 03/11/19 07/29/19 Unknown Rx traZODone [Desyrel] 50 mg PO QDAY PRN tablet 03/11/19 07/29/19 Unknown Rx Hydroxyurea [Hydrea] 500 mg PO TuThSa@1000 #30 capsule 08/05/19 Unknown Rx Active Medications: Generic Name Dose Route Start Last Admin Trade Name Freq PRN Reason Stop Dose Admin Acetaminophen 650 mg 07/29/19 05:29 Tylenol PO Q4H PRN Pain, Mild (1-3), fever 100.5> Albuterol 2.5 mg 08/10/19 02:48 08/11/19 17:54 Proventil IH 2.5 mg Q4HRT PRN Administration Shortness Of Breath Lipase/Protease/Amylase 1 each 08/14/19 10:45 Pancreaze 10,500 Unit FEEDTUBE PRN PRN For Clogged Feeding Tube Aspirin 325 mg 07/29/19 10:00 09/01/19 10:31 Aspirin PO 325 mg QDAY LESLIE Administration Atorvastatin Calcium 80 mg 07/29/19 22:00 08/31/19 22:46 Lipitor PO 80 mg QHS LESLIE Administration Bisacodyl 10 mg 07/29/19 05:29 Dulcolax [place] QDAY PRN Constipation Enoxaparin Sodium 40 mg 08/08/19 10:00 08/31/19 22:46 Lovenox SUB-Q 40 mg QDAY@2200 LESLIE Administration Furosemide 40 mg 08/29/19 10:00 09/01/19 10:31 Lasix PO 40 mg QDAY LESLIE Administration Hydralazine HCl 10 mg 08/01/19 05:00 08/17/19 00:01 Apresoline IV 10 mg Q4HR PRN Administration Hypertension Hydralazine HCl 25 mg 08/16/19 14:00 09/01/19 05:44 Apresoline PO 25 mg Q8HR LESLIE Administration Hydroxyurea 500 mg 08/24/19 10:00 08/31/19 13:42 Hydrea PO 500 mg TUTHSA LESLIE Administration Ceftriaxone Sodium 2 gm in 100 mls @ 200 mls/hr 08/25/19 14:00 09/01/19 01:23 Rocephin/Ns 2 Gm/100 Ml IV 09/10/19 23:59 200 mls/hr Q12H LESLIE Administration Ampicillin Sodium 2 gm in 100 mls @ 100 mls/hr 08/26/19 12:00 09/01/19 10:30 Ampicillin/Ns 2 Gm/100 Ml IV 09/10/19 23:59 100 mls/hr Q4H LESLIE Administration Lisinopril 30 mg 08/14/19 10:00 09/01/19 10:41 Zestril PO 30 mg QDAY LESLIE Administration Lorazepam 1 mg 07/29/19 06:42 08/30/19 23:27 Ativan IV 1 mg Q4H PRN Administration Seizures Magnesium Hydroxide 30 ml 07/29/19 05:29 Milk Of Magnesia PO Q4H PRN Constipation Metoprolol Tartrate 50 mg 07/29/19 10:00 09/01/19 10:40 Lopressor PO 50 mg BID LESLIE Administration Ondansetron HCl 4 mg 07/29/19 05:29 08/10/19 10:49 Zofran IV 4 mg Q6H PRN Administration Nausea And Vomiting Simple Syrup 15 ml 08/14/19 10:45 Simple Syrup FEEDTUBE PRN PRN Hypoglycemia Simple Syrup 30 ml 08/14/19 10:45 Simple Syrup FEEDTUBE PRN PRN Hypoglycemia Sodium Bicarbonate 325 mg 08/14/19 10:45 Sodium Bicarbonate FEEDTUBE PRN PRN For Clogged Feeding Tube Sodium Chloride 10 ml 07/29/19 05:29 08/29/19 09:24 Sodium Chloride Flush Syringe 10 Ml IV 10 ml PRN PRN Administration LINE FLUSH
[2019-09-01] MEDS: ENOXAPARIN SUB-Q SCH (22:29)
[2019-09-02] MEDS: AMPICILLIN/NS 2 GM/100 ML 2 GM/100 ML BAG IV SCH ×5 (00:14→16:48)
[2019-09-02] MEDS: ROCEPHIN/NS 2 GM/100 ML 2 GM/100 ML BAG IV SCH ×2 (01:34→14:00)
[2019-09-02] MEDS: APRESOLINE PO SCH ×2 (06:09→14:00)
[2019-09-02 06:10] VITALS: BP 157/77
--- NOTE | 2019-09-02 07:01 | Hem/Onc Progress Note ---
Assessment and Plan 1. h/o Unresponsiveness, history of fever. ID team following. 2. JAK2 mutation. The patient was on hydroxyurea, white cell count was low, Hydrea had been held. 3. History of chronic obstructive pulmonary disease. 4. History of hypertension. 5. History of hyperlipidemia. 6. History of cerebrovascular accident. 7. History of left renal cell cancer removal. 8. V/Q scan is negative for pulmonary embolism. 9. Lumbar puncture done 10. I will follow the patient during inpatient stay. pt awake - but speech slurred follows command of moving legs and opening mouth as per old notes - pt had been with Dr Frankel He was admitted to [facility] in feb 2019 - with CVA ID - Infective endocardititis - on ABX 09/02 pt was on hydrea for CMPD - this was held as WBC was low restarted hydrea at a lower frequency - TIW WBC fluctuating as he was walking away from the hospital - he is being watched placement pending pt will continue TIW hydrea for now wbc stable - Patient Problems (1) Myeloproliferative disease Current Visit: No Status: Acute Subjective Date of service: 09/02/19 Principal diagnosis: CMPD Interval history: no bleeding Objective - Exam Narrative Exam: Pain - n/a General appearance - awake - but slurred speech Performance status complete dependence Eyes - no icterus ENT - no bleeding LNs cervical not palpable Neck - no LN Respiratory Normal Breath sounds - CTA anteriorly CVS S1 S2 + Extremities no calf tenderness General GI Soft - PEG + Rectal deferred male - deferred Skin warm Musculoskeletal moving extremitites Neurologically awake - slurred speech - Constitutional Vitals: Last Vital Signs Temp 97.9 F 09/01/19 17:31 Pulse 84 09/02/19 06:09 Resp 20 09/01/19 17:31 BP 157/77 09/02/19 06:09 Pulse Ox 99 09/01/19 17:31 Medications & Allergies - Medications Allergies/Adverse Reactions: Allergies No Known Allergies Allergy (Unverified 07/17/14 19:25) Home Medications: Home Medications Medication Instructions Recorded Confirmed Last Taken Type Metoprolol Tartrate 50 mg PO BID 03/05/19 07/29/19 07/28/19 History QUEtiapine 50 mg PO DAILY 03/05/19 07/29/19 Unknown History Aspirin 325 mg PO QDAY tablet 03/11/19 07/29/1919 17:39 Rx AtorvaSTATin [Lipitor] 80 mg PO QHS tablet 03/11/19 07/29/19 Unknown Rx Lisinopril [Zestril TAB] 20 mg PO QDAY tablet 03/11/19 07/29/19 Unknown Rx traZODone [Desyrel] 50 mg PO QDAY PRN tablet 03/11/19 07/29/19 Unknown Rx Hydroxyurea [Hydrea] 500 mg PO TuThSa@1000 #30 capsule 08/05/19 Unknown Rx Active Medications: Generic Name Dose Route Start Last Admin Trade Name Freq PRN Reason Stop Dose Admin Acetaminophen 650 mg 07/29/19 05:29 Tylenol PO Q4H PRN Pain, Mild (1-3), fever 100.5> Albuterol 2.5 mg 08/10/19 02:48 08/11/19 17:54 Proventil IH 2.5 mg Q4HRT PRN Administration Shortness Of Breath Lipase/Protease/Amylase 1 each 08/14/19 10:[address] 10,500 Unit FEEDTUBE PRN PRN For Clogged Feeding Tube Aspirin 325 mg 07/29/19 10:00 09/01/19 10:31 Aspirin PO 325 mg QDAY LESLIE Administration Atorvastatin Calcium 80 mg 07/29/19 22:00 09/01/19 22:29 Lipitor PO 80 mg QHS LESLIE Administration Bisacodyl 10 mg 07/29/19 05:29 Dulcolax ME QDAY PRN Constipation Enoxaparin Sodium 40 mg 08/08/19 10:00 09/01/19 22:29 Lovenox SUB-Q 40 mg QDAY@2200 LESLIE Administration Furosemide 40 mg 08/29/19 10:00 09/01/19 10:31 Lasix PO 40 mg QDAY LESLIE Administration Hydralazine HCl 10 mg 08/01/19 05:00 08/17/19 00:01 Apresoline IV 10 mg Q4HR PRN Administration Hypertension Hydralazine HCl 25 mg 08/16/19 14:00 09/02/19 06:09 Apresoline PO 25 mg Q8HR LESLIE Administration Hydroxyurea 500 mg 08/24/19 10:00 08/31/19 13:42 Hydrea PO 500 mg TUTHSA LESLIE Administration Ceftriaxone Sodium 2 gm in 100 mls @ 200 mls/hr 08/25/19 14:00 09/02/19 01:34 Rocephin/Ns 2 Gm/100 Ml IV 09/10/19 23:59 200 mls/hr Q12H LESLIE Administration Ampicillin Sodium 2 gm in 100 mls @ 100 mls/hr 08/26/19 12:00 09/02/19 03:59 Ampicillin/Ns 2 Gm/100 Ml IV 09/10/19 23:59 100 mls/hr Q4H LESLIE Administration Lisinopril 30 mg 08/14/19 10:00 09/01/19 10:41 Zestril PO 30 mg QDAY LESLIE Administration Lorazepam 1 mg 07/29/19 06:42 08/30/19 23:27 Ativan IV 1 mg Q4H PRN Administration Seizures Magnesium Hydroxide 30 ml 07/29/19 05:29 Milk Of Magnesia PO Q4H PRN Constipation Metoprolol Tartrate 50 mg 07/29/19 10:00 09/01/19 22:30 Lopressor PO 50 mg BID LESLIE Administration Ondansetron HCl 4 mg 07/29/19 05:29 08/10/19 10:49 Zofran IV 4 mg Q6H PRN Administration Nausea And Vomiting Simple Syrup 15 ml 08/14/19 10:45 Simple Syrup FEEDTUBE PRN PRN Hypoglycemia Simple Syrup 30 ml 08/14/19 10:45 Simple Syrup FEEDTUBE PRN PRN Hypoglycemia Sodium Bicarbonate 325 mg 08/14/19 10:45 Sodium Bicarbonate FEEDTUBE PRN PRN For Clogged Feeding Tube Sodium Chloride 10 ml 07/29/19 05:29 08/29/19 09:24 Sodium Chloride Flush Syringe 10 Ml IV 10 ml PRN PRN Administration LINE FLUSH
[2019-09-02] MEDS: ASPIRIN PO SCH (10:21)
[2019-09-02] MEDS: ZESTRIL PO SCH (10:21)
[2019-09-02] MEDS: METOPROLOL PO SCH (10:22)
[2019-09-02] MEDS: SODIUM CHLORIDE FLUSH SYRINGE 10 ML IV PRN (10:22)
[2019-09-02] MEDS: LASIX PO SCH (10:22)
--- NOTE | 2019-09-02 10:27 | Discharge Summary ---
Providers - Providers Date of Admission: 07/29/19 05:29 Date of discharge: 09/02/19 Attending physician: HUAN CHÁVEZ 07/29/19 Consult to Physician [CONS] Routine Comment: Consulting Provider: REINA BULLOCK Physician Instructions: Reason For Exam: seizure new onset, hx cva x2 07/29/19 05:29 Consult to Case Management [CONS] Routine Services Needed at Discharge: Home Health Services Notified:: cm notified Consult to Dietitian/Nutrition [CONS] Routine Physician Instructions: Reason For Exam: Reason for Consult: Nutrition Recommendations Reason for Consult: Write/Manage Tube Feeding Occupational Therapy Evaluate and Treat [CONS] Routine Comment: Reason For Exam: Neuro deficits Physical Therapy Evaluation and Treat [CONS] Routine Comment: Reason For Exam: Neuro deficits 07/29/19 05:32 Speech Therapy Evaluation and Treat [CONS] Routine Reason For Exam: swallow eval 07/29/19 06:35 Consult to Physician [CONS] Routine Comment: Consulting Provider: IVETH BARNETT Physician Instructions: Reason For Exam: elevated d-dimer, hx of hemorrhagic CVA 07/29/19 11:36 Consult to Physician [CONS] Routine Comment: Consulting Provider: LINDA HARO Physician Instructions: Reason For Exam: SEPSIS, AMS 07/30/19 14:54 Speech Therapy Evaluation and Treat [CONS] Routine Reason For Exam: ?mordified barium 08/01/19 16:46 Consult to PICC Line RN [CONS] Routine Reason For Exam: 6 WEEKS OF IV ABX Type Line:: PICC 08/02/19 12:49 Consult to Case Management [CONS] Routine Services Needed at Discharge: Other Notified:: case management rn Comment:: IV antibiotics x 6 weeks for endocarditis Additional Physician Instructions: [facility] O: [phone] F: [phone] OUTPATIENT PARENTERAL ANTIBIOTIC THERAPY (OPAT) ORDERS Diagnoses: Acute mitral valve endocarditis, Enterococcus bacteremia Antimicrobial administration: IV Ampicillin 6 gm continuous infusion every 12 hours + IV Ceftriaxone 2 gm q12 hrs ending 09/10/2019 - Remove PICC line after last dose unless otherwise instructed. Lines: Maintain IV access with weekly dressing changes and locks per protocol. Lab monitoring: - CBC with differential, Creatinine, ALT, AST, CRP once a week every Monday while on IV antibiotics. Please fax results to [phone] and call [phone] for critical lab results. 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 He is unable to provide history; According to patient's family patient was found to be less responsive with difficulty breathing. EMS was called. Upon EMS' arrival to home he was found to be hypertensive with SBP in 200's, febrile, and tachycardic with audible wheezing. He was admitted for further evaluation and management. His blood culture grew Enterococcus faecalis with mitral valve vegetation. Now being treated for endocarditis with IV antibiotics, ID following. 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 Otherwise, the CTA of the head appears unremarkable * CTA neck with and without contrast: There is mild calcified plaque involving the proximal left ICA. However, there no CTA evidence of significant stenosis involving cervical carotid or vertebral arteries by NASCET criteria. * CXR: There is mild increase in interstitial markings bilaterally likely representing mild edema. * 07/30/19 MRI brain without contrast Impression: No focal mass, acute hemorrhage, hydrocephalus or acute ischemia * TTE: 1. Mitral valve vegetation. 2. Moderate MR. 3. Normal LV function EF 55- 60%. 4. Mild-moderate AR. Cultures: 07/29/2019 Blood culture: Enterococcus faecalis Urine culture: mixed growth 07/30/2019 Blood culture: no growth at 48 hours Discharge diagnosis and mx: /Acute pulmonary edema, resolved - Continue diuresis with Lasix, afterload reduction with hydralazine and echocardiogram negative for diastolic flow reversal and aorta. Aortic insufficiency not severe per cardiology. /Sepsis secondary to Acute mitral valve endocarditis with Enterococcus: TTE showed mitral valve vegetation. Appreciate Cardiology recs, no surgical intervention. -Picc line placed. discontinued Vancomycin. 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 -LP done, doubt meningitis, isolation discontinued /Acute encephalopathy with delirium secondary to Seizure precipitated by sepsis -Continue to monitor -Neurology consulted and input noted. Possible seizure rather than CVA also as evidenced by CT head, with no acute cva noted. - Psych evaluated and recommended outpatient follow-up /Accelerated Hypertension, POA -Continue to monitor BP -cont. present meds, stable /History of CVA -Hemorrhagic CVA 11/2018 -Ischemic CVA 02/2019 -Right-sided residual deficits with dysarthria -PT/OT eval recommending home with home health -Continue aspirin and statin therapy /Elevated d-dimer -D-dimer elevated at 1354.97 -V/Q scan negative for PE /Thrombocytosis JAK2 positive Heme/onc following hydroxyurea changed to 3x/wk /Dysphagia - tolerating diet DVT PPX -SCD's -start sq lovenox, d/w Heme/Onc Disposition. Discharge once IV abx and placement arranged with [facility] Hospitalist Physical GENERAL: well-developed and well-nourished -[place] male lying on bed appeared to be in no discomfort. HEENT: Normocephalic. Atraumatic. No conjunctival congestion or icterus. Patient has moist mucous membranes. NECK: Supple. Trachea midline. CHEST/LUNGS: Positive wheezes auscultated bilaterally, breathing nonlabored. No crackles or rhonchi. HEART/CARDIOVASCULAR: Regular in rate and rhythm. S1 and S2 positive. ABDOMEN: Abdomen is soft, nontender. Patient has normal bowel sounds. SKIN: There is no rash. Warm and dry. NEURO: Dysarthric. Follows command. MUSCULOSKELETAL: No joint effusion or tenderness. EXTRIMITY: No edema, no cyanosis or clubbing. PSYCH: Cooperative. Disposition: DC/TX-06 HOME UNDER HOME [facility] Time spent for discharge: 34 minutes Core Measure Documentation - Palliative Care Palliative Care/ Comfort Measures: Not Applicable - Core Measures Any of the following diagnoses?: history only Exam - Constitutional Vitals: Temp Pulse Resp BP Pulse Ox 98.0 F 84 20 157/77 91 09/02/19 06:03 09/02/19 06:09 09/02/19 06:03 09/02/19 06:09 09/02/19 06:03 Plan Activity: fall precautions Weight Bearing Status: Non-Weight Bearing Diet: low fat, low salt Plan of Treatment: Antibiotics as arranged by ID Follow up with: [facility] [Outside] - 7 Days ANMOL POE MD [Staff Physician] - 6 Weeks ANABEL MENDOZA MD [Staff Physician] - 7 Days [facility] MD SCOTTIE [Primary Care Provider] - 3-5 Days ROCKY SAUCEDO MD [Staff Physician] - 7 Days Prescriptions: AtorvaSTATin [Lipitor] 80 mg PO QHS #30 tablet hydrALAZINE [Apresoline TAB] 25 mg PO Q8HR #90 tablet Aspirin 325 mg PO QDAY #30 tablet Hydroxyurea [Hydrea] 500 mg PO TuThSa@1000 #30 capsule Furosemide [Lasix TAB] 40 mg PO QDAY #30 tablet Metoprolol Tartrate 50 mg PO BID #60 Lisinopril [Zestril TAB] 20 mg PO QDAY #30 tablet
[2019-09-03] MEDS ORDERED: HYDROXYUREA PO SCH (10:00)
== END 2019-09-02 17:30 | disposition home or self-care (01) | DRG 871 ==
LOC: ED 23:50 → 4A 07-29 05:29 → 3A 08-27 14:44
PROVIDERS: ADMIT Internal Medicine; ATTEND Internal Medicine
PROC: 009U3ZZ Drainage of Spinal Canal, Percutaneous Approach (ICD-10-PCS; 2019-07-30)
PROC: B01B1ZZ Fluoroscopy of Spinal Cord using Low Osmolar Contrast (ICD-10-PCS; 2019-07-30)
PROC: 02HV33Z Insertion of Infusion Device into Superior Vena Cava, Percutaneous Approach (ICD-10-PCS; principal; 2019-08-02)
PROC: 5A09357 Assistance with Respiratory Ventilation, Less than 24 Consecutive Hours, Continuous Positive Airway Pressure (ICD-10-PCS; 2019-08-03)
DX: A41.81 Sepsis due to Enterococcus (principal); I33.0 Acute and subacute infective endocarditis; J18.9 Pneumonia, unspecified organism; G93.40 Encephalopathy, unspecified; I21.A1 Myocardial infarction type 2; G03.9 Meningitis, unspecified; E87.2 Acidosis; J44.9 Chronic obstructive pulmonary disease, unspecified; I34.0 Nonrheumatic mitral (valve) insufficiency; R13.10 Dysphagia, unspecified; C94.6 Myelodysplastic disease, not elsewhere classified; E78.5 Hyperlipidemia, unspecified; I10 Essential (primary) hypertension; G40.89 Other seizures; I69.351 Hemiplegia and hemiparesis following cerebral infarction affecting right dominant side; Z90.5 Acquired absence of kidney; Z79.82 Long term (current) use of aspirin; Z79.899 Other long term (current) drug therapy; Z85.528 Personal history of other malignant neoplasm of kidney; Z93.1 Gastrostomy status
CPT/HCPCS: 36415; 62270; 70450; 70460; 70496; 70498; 70551; 71045; 74230; 77003; 78580; 80048; 80053; 80061; 80202; 81001; 82140; 82550; 82553; 82607; 82728; 82747; 82947; 82962; 83550; 83880; 84160; 84484; 85007; 85025; 85027; 85379; 85610; 85670; 85730; 86592; 87040; 87076; 87086; 87116; 87186; 87498; 87799; 89051; 93005; 93010; 93306; 93308; 93321; 93325; 94640; 94660; 94760; 95819; G0378; A9270-GY; A9540; J0133; J0290; J0360; J0692; J0696; J1650; J1940; J1953; J2060; J2405; J2543; J2997; J3370; J7030; J7040; J7050; Q9967